=== PATIENT | female | born 1945 | race Caucasian/White ===

== ENCOUNTER 2016-09-05 11:05 | Outpatient (RCR) | payer MEDICARE, OTHER ==
[~2016-09-05 11:05] MED LIST: AMT10T; ASP325T; ASP325TEC PO; ASP81TEC PO; ATOR80TA PO; BREX0.5T PO; CHOL100011 PO; CHOL10003 PO; CHOL200035 PO; CLPD75T PO; COLE1TAB PO; CRV6.25T PO; CYAN25003 SL; D50KC; DICY20TA10 PO; DIGO250T PO; DULO60CA6 PO; EST05TD; FERR325C PO; FRS325T PO; FRSM20T; FURO20TA4 PO; GBPN300C PO; HYZAAR 100/25MG; KCL8CCR PO; LORA10TA7 PO; LOSA50TA6 PO; LOVAZA 1GM; LSRT50T PO; LVT.088T PO; LVT.1T PO; MAGN400C PO; MAGN400T6 PO; METO25TA2 PO; MRTZ15T; MULT1CAP27 PO; MULT1TAB63 PO; MV,C1TAB34 PO; NF-AMPE5T; NF-CYM60C; NF-DICLTB; NF-LOVAZAC PO; NF-TYLARTH PO; NIA500ERT PO; NIAC1000 PO; NIAC1TBM5; NYST1000 PO; OMEG1CAP PO; PNT40TEC PO; POTA8TAB PO; SMV20T; TR025C15 TP; TRAM50TA2 PO; VIVELLE PATCH; VNL37.5T PO; VNL75CCR; VNL75CCR PO; [UNRECOGNIZED DRUG - OTHER]; [UNRECOGNIZED DRUG - OTHER]; lovaza PO
== END 2016-12-02 | disposition home or self-care (01) ==
LOC: LAB 11:05
PROVIDERS: ATTEND Internal Medicine
DX: N18.3 Chronic kidney disease, stage 3 (moderate) (principal)
CPT/HCPCS: 82570; 84156

== ENCOUNTER → 2017-01-17 | Outpatient (CLI) | payer MEDICARE, OTHER | LOC: CARD 12:51 | PROVIDERS: ATTEND Internal Medicine Cardiovascular Disease | DX: I25.10 Atherosclerotic heart disease of native coronary artery without angina pectoris (principal); I65.23 Occlusion and stenosis of bilateral carotid arteries; I10 Essential (primary) hypertension; E78.2 Mixed hyperlipidemia; M79.7 Fibromyalgia | CPT/HCPCS: 93306 ==

== ENCOUNTER 2018-05-13 11:24 | Inpatient (IN) | payer MEDICARE, OTHER ==
[~2018-05-13] VITALS: Ht 160 cm; Wt 76.2 kg
--- OUTSIDE RECORDS SUMMARY | 2018-05-13 11:30 | XMS REPORT ---
Author Author TATI MILLARD Organization [facility] Address [address] [place] [address] Care Team Providers Care Tree Deadener Name Role Phone TATI MILLARD Unavailable PROBLEMS Type Condition ICD9-CM Code WMY53-II Code Onset Dates Condition Status SNOMED Code Problem Major depressive disorder, recurrent episode, in partial or unspecified remission 296.35 Active 16213766 Problem Panic disorder without agoraphobia 300.01 Active 56339076 ALLERGIES Substance Reaction Event Type Date Status Codeine Sulfate hives Drug Allergy Jan, Active Cefadroxil Fainting Drug Allergy Jan, Active ENCOUNTERS Encounter Location Date Diagnosis [place] [id number] [place] [address] 24774- 9581 Apr, [place] [address] [place] [id number] [place] [address] 40175- 6818 Feb, Major depressive disorder, recurrent episode, in partial remission F33.41 [place] [address] [place] [address] 60559- 0256 Jan, Major depressive disorder, recurrent episode, in partial remission F33.41 [place] [address] [address] Jan, Major depressive disorder, recurrent episode, in partial remission F33.41 and 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.1 [place] [address] [place] [address] 08515- 5194 Jan, [place] [address] [place] [id number] [place] [address] 25051- 6264 Dec, Major depressive disorder, recurrent episode, in partial remission F33.41 [place] [address] [place] [id number] [place] [address] 00413- 4075 Dec, Major depressive disorder, recurrent episode, in partial remission F33.41 [facility] [address] [place] [address] 02845- 6966 Oct, Major depressive disorder, recurrent episode, in partial remission F33.41 and 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.1 [facility] [address] [address]6 Jun, Major depressive disorder, recurrent episode, in partial remission F33.41 and 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.1 [facility] [address] [place] [address] 18291- 6376 Feb, 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.1 [facility] [address] [place] [id number] [place] [address] 97943- 2247 Jan, 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.1 [facility] [address] [place] [id number] [place] [address] 92782- 3508 Jan, Major depressive disorder, recurrent episode, in partial remission F33.41 ; 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.1 and Other prison ( current) drug therapy Z79.899 [facility] [address] [place] [id number] [place] [address] 05047- 4474 Dec, [facility] [address] [place] [address] 24252- 6440 Dec, [facility] [address] [place] [address] 33675- 6400 Dec, Major depressive disorder, recurrent episode, in partial remission F33.41 [facility] [address] [address]- 7186 November, [facility] [address] [place] [id number] [place] [address] 06941- 2941 November, Major depressive disorder, recurrent episode, in partial remission F33.41 and 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.1 [facility] [address] [place] [address] 48501- 0487 Oct, Major depressive disorder, recurrent episode, in partial remission F33.41 and 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.1 [facility] [address] [place] [id number] [place] [address] 3676 Jul, [facility] [address] [place] [id number] [address]- 1626 Jul, [facility] [address] [place] [id number] [place] [address] 20888- 0308 Jul, Major depressive disorder, recurrent episode, in partial remission F33.41 ; 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.1 and 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 [facility] [address] [place] [id number] [address] 6506 Jun, [facility] [address] [place] [id number] [address]- 2153 Apr, Major depression, recurrent 296.30 and Anxiety disorder, unspecified F41.9 [facility] [address] [place] [id number] [address]- 0467 Feb, [facility] [address] [place] [id number] [place] [address]- 4815 Jan, [facility] [address] [place] [id number] [address]- 4252 Dec, Major depressive disorder, recurrent, in partial remission F33.41 and Anxiety disorder, unspecified F41.9 [facility] [address] [place] [id number] [address]- 6592 Dec, [facility] [address] [place] [id number] [place] [address]- 2036 November, [facility] [address] [place] [id number] [address]- 9498 November, [facility] [address] [place] [id number] [address]- 6756 Oct, [facility] [address] [place] [id number] [address]- 2520 Aug, [facility] [address] [address]- 0938 Jul, [facility] [address] [address] 1670 Jul, 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.1 ; Major depressive disorder, recurrent, moderate F33.1 and Anxiety disorder, unspecified F41.9 [facility] [address] [address]- 2379 Jun, [facility] [address] [place] [address] 47819- 8825 May, [facility] [address] [address]- 7841 May, [facility] [address] [address]- 3227 Mar, [facility] [address] [address]- 6511 Feb, Major depression, recurrent 296.30 ; Chronic post-traumatic stress disorder (PTSD) 309.81 ; Anxiety 300.00 ; No condition on Bowlus II V71.09 and No condition on axis III V71.09 [facility] [address] [address]- 6115 Jan, Major depression 296.20 ; 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 300.02 ; 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 ; No condition on Bowlus II V71.09 and No condition on axis III V71.09 [facility] [address] [place] [id number] [address]- 4792 15 Dec, 2014 Depression, major, recurrent, moderate 296.32 ; 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 300.02 and Bowlus II diagnosis deferred 799.9 [facility] [address] [place] [id number] [address]- 9030 Dec, Major depressive disorder, recurrent episode, in partial or unspecified remission 296.35 and Panic disorder without agoraphobia 300.01 [facility] [place] [facility] [address] [id number] [place] [address]- 3317 Oct, [facility] [address] [facility] [id number] [place] [address]- 9809 Oct, [facility] [place] [facility] [address] [facility] [id number] [place] [address]- 8304 Mar, [facility] [place] [facility] [address] [id number] [place] [address]- 5262 Feb, [facility] [place] [facility] [address] [id number] [place] [address]- 5306 Feb, [facility] [place] [facility] [address] [facility] [id number] [place] [address]- 5881 Feb, [facility] [place] [facility] [address] [facility] [id number] [place] [address]- 1372 Feb, [facility] [place] [facility] [address] [facility] [id number] [place] [address]- 9236 Feb, [facility] [place] [facility] [address] [facility] [id number] [place] [address]- 0893 Feb, [facility] [place] [facility] [address] [facility] [id number] [place] [address]- 7352 November, [facility] [place] [facility] [address] [facility] [id number], [place] [address]- 1870 November, [facility] [place] [facility] [address] [facility] [id number] [address]- 8824 November, [facility] [place] [facility] [address] [facility] [id number] [place] [address]- 7462 November, [facility] [place] [facility] [address] [facility] [id number] [address]- 5705 November, [facility] [place] [facility] [address] [facility] [id number] [place] [address]- 8163 November, [facility] [place] [facility] [address] [facility] [id number] [place] [address]- 0071 Oct, [facility] [address] [id number] [place] [address]- 2220 Oct, [facility] [place] [facility] [address] [id number] [place] 8961 Sep, [facility] [place] [facility] [address] [id number] [place] [address]- 6673 Sep, [facility] [place] [facility] [address] [id number] [place] [address]- 8136 Sep, [facility] [place] [facility] [address] [id number] [place] [address]- 2990 Sep, [facility] [place] [facility] [address] [id number] [place] [address]- 6295 Sep, [facility] [place] [facility] [address] [id number] [place] [address]- 0890 Sep, [facility] [place] [facility] [address] [id number] [place] [address]- 7603 Aug, [facility] [place] [facility] [address] [id number] [place] [address]- 2055 Aug, [facility] [place] [facility] [address] [id number] [place] [address]- 7645 Aug, [facility] [place] [facility] [address] [id number] [place] [address]- 3959 Aug, [facility] [place] [facility] [address] [id number] [place] [address]- 3579 Jul, [facility] [place] [facility] [address] [id number] [place] [address]- 4873 Jul, [facility] [place] [facility] [address] [id number] [place] [address]- 9926 Jul, [facility] [place] [facility] [address] [id number] [place] [address]- 4709 Jul, [facility] [address] [id number] [place] [address]- 8744 Jul, [facility] [place] [facility] [address] [id number] [place] [address]- 8214 Jul, [facility] [place] [facility] [address] [id number] [place] 9165 Jun, [facility] [place] [facility] [address] [id number] [place] [address]- 6391 Jun, [facility] [place] [facility] [address] [id number] [place] [address]- 5212 Jun, [facility] [place] [facility] [address] [id number] [place] [address]- 3439 Jun, [facility] [place] [facility] [address] [id number] [place] [address]- 0619 May, [facility] [place] [facility] [address] [id number] [place] [address]- 1945 May, [facility] [place] [facility] [address] [id number] [place] [address]- 6603 May, [facility] [place] [facility] [address] [id number] [place] [address]- 7003 May, [facility] [place] [facility] [address] [id number] [place] [address]- 5305 Apr, [facility] [place] [facility] [address] [id number], [place] [address]- 8579 Mar, [facility] [place] [facility] [address] [id number] [place] [address]- 0209 Mar, [facility] [place] [facility] [address] [id number] [place] [address]- 8030 Feb, [facility] [place] [facility] [address] [id number] [place] [address]- 4636 Feb, [facility] [place] [facility] [address] [id number] [place] [address]- 9558 Feb, [facility] [address] [id number] [place] [address]- 5881 Jan, [facility] [place] [facility] [address] [id number] [place] [address]- 8092 Dec, [facility] [place] [facility] [address] [id number] [place] [address]- 7166 Dec, [facility] [place] [facility] [address] [id number] [place] [address]- 9922 Dec, [facility] [place] [facility] [address] [id number] [place] [address]- 8167 Dec, [facility] [place] [facility] [address] [id number] [place] [address]- 8096 November, [facility] [place] [facility] [address] [id number] [place] [address]- 9964 Sep, [facility] [place] [facility] [address] [id number] [place] [address]- 6208 Aug, [facility] [place] [facility] [address] [id number] [place] [address]- 4795 Jul, [facility] [place] [facility] [address] [id number] [place] [address]- 7079 Jul, [facility] [place] [facility] [address] [id number] [place] [address]- 7202 Jun, [facility] [place] [facility] [address] [id number] [place] [address]- 0348 Jun, [facility] [place] [facility] [address] [id number] [place] [address]- 0597 May, [facility] [place] [facility] [address] [id number] [place] [address]- 4296 May, [facility] [place] [facility] [address] [id number] [place] [address]- 5716 Aug, [facility] [address] [facility] [id number], [place] [address]- 9418 Jun, [facility] [address] [address]- 8141 May, [facility] [address] [address]- 3879 May, [facility] [address] [address]- 5431 May, [facility] [address] [address]- 7670 May, [place] [address], [place] [address]- 3986 Apr, IMMUNIZATIONS No Known Immunizations SOCIAL HISTORY Never Assessed REASON FOR VISIT f/u-Naty GOLDSTEIN, Needs to Sign SHIRA for records from PCP PLAN OF CARE Activity Details Follow Up 3 Months Reason: f/u VITAL SIGNS Height 63.75 in 2018-02-14 Weight 131.2 lbs 2018-02-14 Heart Rate 74 bpm 2018-02-14 Respiratory Rate 18 2018-02-14 BMI 22.69 kg/m2 2018-02-14 Blood pressure systolic 112 mmHg 2018-02-14 Blood pressure diastolic 60 mmHg 2018-02-14 MEDICATIONS Medication Instructions Dosage Frequency Start Date End Date Duration Status Colestid 1 gram 1 Tablet by Oral route 2 times per day As needed Sep Active Paonia 3 1000 MG Orally Once a day 1 capsule 24h Active Niacin ER 1000 MG Orally Once a day 1 tablet 24h Active Metoprolol Tartrate 25 MG Orally Twice a day 1 tablet 12h Active Vitamin D3 2000 UNIT Active Lisinopril 5 mg Orally Once a day .5 tablet 24h Not-Taking Aspirin 81 mg 1 Capsule by Oral route 1 time per day Feb, Not-Taking Omeprazole 20 MG Orally Once a day 1 capsule 24h Active Levothyroxine Sodium 88 MCG Orally Once a day 1 tablet 24h Active Lipitor 80 MG Orally Once a day 1 tablet 24h Active Duloxetine HCl 60MG TAKE 1 CAPSULE TWICE A DAY Active Niaspan 500 MG Orally Once a day 1 tablet at bedtime 24h Not- Taking Centrum Cardio Orally Once a day 1 tablet 24h Active Rexulti 1 MG Orally Once a day 1 tablet 24h 05 Jul, 2015 Active Lovaza 1 GM Orally Twice a day 2 capsules 12h Active Gabapentin 600 MG Orally twice a day 1 tablet 12h 13 Oct, 2016 Active Iron Complex Not-Taking RESULTS No Results PROCEDURES Procedure Date Ordered Result Body Site [facility] VISIT ESTABLISHED PATIENT February 14, 2018 INSTRUCTIONS MEDICATIONS ADMINISTERED No Known Medications MEDICAL (GENERAL) HISTORY Type Description Date Medical History HTN Medical History stage 3 kidney disease Medical History hypothyroidism Medical History high cholesterol Medical History coranary artery disease Medical History "enlarged heart" Medical History GERD Medical History IBS Medical History sleep apnea (CPAP noncompliant) Surgical History S/P EKATERINA 1972 Surgical History S/P quadruple cardiac bypass 2008 Hospitalization History Denies any past psychiatric hospitalization
--- OUTSIDE RECORDS SUMMARY | 2018-05-13 11:30 | XMS REPORT ---
Author Author TATI MILLARD 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 Operator Name Role Phone TATI MILLARD Unavailable PROBLEMS Type Condition ICD9-CM Code [id number] Code Onset Dates Condition Status SNOMED Code Problem Major depressive disorder, recurrent episode, in partial or unspecified remission 296.35 Active 51775760 Problem Panic disorder without agoraphobia 300.01 Active 20612630 ALLERGIES No Information ENCOUNTERS Encounter Location Date Diagnosis [place] [id number] [place] [address]14- 0820 Apr, [facility] [id number] [place] [address] 38943- 9940 Feb, Major depressive disorder, recurrent episode, in partial remission F33.41 [facility] [id number] [place] [address] 67762- 3702 Jan, Major depressive disorder, recurrent episode, in partial remission F33.41 [place] [id number] [place] [address] 38627- 6563 Jan, Major depressive disorder, recurrent episode, in partial remission F33.41 and 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.1 [facility] [id number] [place] [address] 33256- 4105 Jan, [facility] [id number] [place] [address] 39209- 3359 Dec, Major depressive disorder, recurrent episode, in partial remission F33.41 [facility] [id number] [place] [address] 74658- 9038 Dec, Major depressive disorder, recurrent episode, in partial remission F33.41 [place] [address] [facility] [id number] [place] [address] 2546 Oct, Major depressive disorder, recurrent episode, in partial remission F33.41 and 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.1 [facility] [address] [facility] [id number] [place] [address] 2546 Jun, Major depressive disorder, recurrent episode, in partial remission F33.41 and 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.1 [facility] [address] [place] [address] 6036 Feb, 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.1 [facility] [id number] [place] [address] 7896 Jan, 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.1 [facility] [address] [id number] [place] [address] 2806 Jan, Major depressive disorder, recurrent episode, in partial remission F33.41 ; 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.1 and Other soda tester ( 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 [id number] [place] [address] 2546 November, Major depressive disorder, recurrent episode, in partial remission F33.41 and 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.1 [facility] [address] [facility] [id number] [place] [address]- 5036 Oct, Major depressive disorder, recurrent episode, in partial remission F33.41 and 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.1 [facility] [address] [place] [address] 2972 Jul, [facility] [address] [place] [address]- 9726 Jul, [facility] [address] [place] [address]- 8306 Jul, Major depressive disorder, recurrent episode, in partial remission F33.41 ; 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.1 and Other custodial ( current) drug therapy Z79.899 [facility] [address] [place] [address] 2546 Jun, [facility] [id number] [place] [address] 41536- 8236 Apr, Major depression, recurrent 296.30 and Anxiety disorder, unspecified F41.9 [facility] [address] [place] [address] 7192 Feb, [facility] [address] [place] [address] 8318 Jan, [facility] [address] [place] [address]- 7444 Dec, Major depressive disorder, recurrent, in partial remission F33.41 and Anxiety disorder, unspecified F41.9 [facility] [address] [address]- 5300 Dec, [facility] [address] [place] [address] 5756 November, [facility] [address] [place] [address]- 4666 November, [facility] [address] [place] [address] 2546 Oct, [facility] [address] [place] [address]- 2516 Aug, [facility] [id number] [place] [address] 39236- 0940 Jul, [facility] [id number] [place] [address] 90325- 1621 Jul, 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.1 ; Major depressive disorder, recurrent, moderate F33.1 and Anxiety disorder, unspecified F41.9 [place] [id number] [place] [address] 81814- 0743 Jun, [facility] [id number] [place] [address] 35603- 6914 May, [place] [id number] [place] [address] 23219- 8642 May, [facility] [id number] [place] [address] 80561- 2457 Mar, [place] [id number] [place] [address] 30265- 9633 Feb, Major depression, recurrent 296.30 ; Chronic post-traumatic stress disorder (PTSD) 309.81 ; Anxiety 300.00 ; No condition on Echo II V71.09 and No condition on axis III V71.09 [place] [id number] [place] [address] 40271- 6157 Jan, Major depression 296.20 ; 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 300.02 ; 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 ; No condition on Echo II V71.09 and No condition on axis III V71.09 [facility] [id number] [place] [address] 36867- 5120 Dec, Depression, major, recurrent, moderate 296.32 ; 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 300.02 and Echo II diagnosis deferred 799.9 [place] [id number] [place] [address] 76738- 3812 Dec, Major depressive disorder, recurrent episode, in partial or unspecified remission 296.35 and Panic disorder without agoraphobia 300.01 [place] [id number] [place] [address] 40593- 5253 Oct, [facility] [place] [facility] [address] [id number] [place] [address]- 0977 Oct, [facility] [place] [facility] [address] [id number] [place] [address]- 7288 Mar, [facility] [place] [facility] [address] [id number] [place] [address]- 7807 Feb, [facility] [place] [facility] [address] [id number] [place] [address]- 2969 Feb, [facility] [place] [facility] [address] [id number] [place] [address]- 4205 Feb, [facility] [place] [facility] [address] [id number] [place] [address]- 5434 Feb, [facility] [place] [facility] [address] [id number] [place] [address]- 0594 Feb, [facility] [place] [facility] [address] [id number] [place] [address]- 2793 Feb, [facility] [place] [facility] [address] [id number] [place] [address]- 4117 November, [facility] [place] [facility] [address] [id number] [place] [address]- 3434 November, [facility] [place] [facility] [address] [id number] [place] [address]- 8560 November, [facility] [place] [facility] [address] [id number] [place] [address]- 8999 November, [facility] [place] [facility] [address] [id number] [place] [address]- 3122 November, [facility] [place] [facility] [address] [id number] [place] [address]- 5290 November, [facility] [place] [facility] [address] [id number] [place] [address]- 7255 Oct, [facility] [place] [facility] [address] [id number] [place] [address]- 4876 Oct, [facility] [place] [facility] [address] [id number] [place] [address]- 8205 Sep, [facility] [place] [facility] [address] [id number] [place] [address]- 6886 Sep, [facility] [place] [facility] [address] [id number] [place] [address]- 2857 Sep, [facility] [place] [facility] [address] [id number] [place] [address]- 2078 Sep, [facility] [place] [facility] [address] [id number] [place] [address]- 1612 Sep, [facility] [place] [facility] [address] [id number] [place] [address]- 6935 Sep, [facility] [place] [facility] [address] [id number] [place] [address]- 3519 Aug, [facility] [place] [facility] [address] [id number] [place] [address]- 5396 Aug, [facility] [place] [facility] [address] [id number] [place] [address]- 7615 Aug, [facility] [place] [facility] [address] [id number] [place] [address]- 4614 Aug, [facility] [place] [facility] [address] [id number] [place] [address]- 4822 Jul, [facility] [place] [facility] [address] [id number] [place] [address]- 9694 Jul, [facility] [place] [facility] [address] [id number] [place] [address]- 2561 Jul, [facility] [place] [facility] [address] [id number] [place] [address]- 4490 Jul, [facility] [place] [facility] [address] [id number] [place] [address]- 2313 Jul, [facility] [place] [facility] [address] [id number] [place] [address]- 7596 Jul, [facility] [place] [facility] [address] [id number] [place] [address]- 2826 Jun, [facility] [place] [facility] [address] [id number] [place] [address]- 5784 Jun, [facility] [place] [facility] [address] [id number] [place] [address]- 2546 Jun, [facility] [place] [facility] [address] [id number] [place] [address] 2548 Jun, [facility] [place] [facility] [address] [id number] [place] [address]- 2333 May, [facility] [place] [facility] [address] [id number] [place] [address]- 8132 May, [facility] [place] [facility] [address] [id number] [place] [address]- 7989 May, [facility] [place] [facility] [address] [id number] [place] [address]- 5366 May, [facility] [place] [facility] [address] [id number] [place] [address]- 9456 Apr, [facility] [place] [facility] [address] [id number] [place] [address]- 0254 Mar, [facility] [place] [facility] [address] [id number] [place] [address]- 4019 Mar, [facility] [place] [facility] [address] [id number] [place] [address] 2547 Feb, [facility] [place] [facility] [address] [id number] [place] [address]- 1726 Feb, [facility] [place] [facility] [address] [id number] [place] [address]- 2056 Feb, [facility] [place] [facility] [address] [id number] [place] [address]- 5529 Jan, [facility] [address] [id number] [place] [address]- 9062 Dec, [facility] [place] [facility] [address] [id number] [place] [address]- 7850 Dec, [facility] [address] [id number] [place] [address]- 1221 Dec, [facility] [place] [facility] [address] [id number] [place] [address]- 0654 Dec, [facility] [address] [id number] [place] [address]- 5549 November, [facility] [address] [id number] [place] [address]- 6626 Sep, [facility] [address] [id number] [place] [address]- 8133 Aug, [facility] [address] [id number] [place] [address]- 4773 Jul, [facility] [address] [id number] [place] [address]- 7620 Jul, [facility] [address] [id number] [place] [address]- 2483 Jun, [facility] [address] [id number] [place] [address]- 9911 Jun, [facility] [place] [facility] [address] [id number] [place] [address]- 7829 May, [facility] [place] [facility] [address] [id number] [place] [address]- 2768 May, [facility] [place] [facility] [address] [id number] [place] [address]- 4222 10 Aug, 2011 [facility] [address] [id number] [place] [address]- 2511 Jun, [facility] [address] [facility] [id number] [place] [address]- 5016 May, [facility] [id number] [place] [address]- 7516 May, [facility] [address] [facility] [id number] [place] [address]- 2706 May, [facility] [id number] [place] [address]- 8976 May, [facility] [address] [facility] [id number] [place] [address]75 Apr, IMMUNIZATIONS No Known Immunizations SOCIAL HISTORY Never Assessed REASON FOR VISIT Requests return call PLAN OF CARE VITAL SIGNS MEDICATIONS Medication Instructions Dosage Frequency Start Date End Date Duration Status Gabapentin 600 MG Orally twice a day 1 tablet 12h 13 Oct, 2016 30 days Active RESULTS No Results PROCEDURES No Known procedures INSTRUCTIONS MEDICATIONS ADMINISTERED No Known Medications MEDICAL [...]
--- OUTSIDE RECORDS SUMMARY | 2018-05-13 11:30 | XMS REPORT ---
Author Author TATI MILLARD [facility] Address [address] [place] [address] Care Team Providers Care Deicer Repairer Pneumatic Name Role Phone TATI MILLARD Unavailable PROBLEMS Type Condition ICD9-CM Code [id number] Code Onset Dates Condition Status SNOMED Code Problem Major depressive disorder, recurrent episode, in partial or unspecified remission 296.35 Active 35604287 Problem Panic disorder without agoraphobia 300.01 Active [id number] ALLERGIES No Information ENCOUNTERS Encounter Location Date Diagnosis [place] [id number] [place] [address] 80978- 0964 Apr, [facility] [id number] [place] [address] 28798- 4728 Feb, Major depressive disorder, recurrent episode, in partial remission F33.41 [facility] [id number] [place] [address] 73842- 8011 Jan, Major depressive disorder, recurrent episode, in partial remission F33.41 [place] [id number] [place] [address] 65453- 2935 Jan, Major depressive disorder, recurrent episode, in partial remission F33.41 and 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.1 [facility] [id number] [place] [address] 32446- 2020 Jan, [facility] [id number] [place] [address] 13606- 6816 Dec, Major depressive disorder, recurrent episode, in partial remission F33.41 [facility] [id number] [place] [address] 17581- 5565 Dec, Major depressive disorder, recurrent episode, in partial remission F33.41 [place] [address] [facility] [id number] [address] 2546 Oct, Major depressive disorder, recurrent episode, in partial remission F33.41 and 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.1 [facility] [address] [facility] [id number] [place] [address] 2546 Jun, Major depressive disorder, recurrent episode, in partial remission F33.41 and 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.1 [facility] [id number] [address] 7[address] Feb, 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.1 [facility] [id number] [place] [address] 5456 Jan, 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.1 [facility] [id number] 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 [address]- 0026 Dec, [facility] [id number] [address] 2546 Dec, [facility] [id number] [address] 0426 Dec, Major depressive disorder, recurrent episode, in partial remission F33.41 [facility] [id number] [place] [address] 2036 November, [facility] [address] [facility] [id number] [place] [address] 2546 November, Major depressive disorder, recurrent episode, in partial remission F33.41 and 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.1 [facility] [address] [facility] [id number] [place] [address]- 0446 Oct, Major depressive disorder, recurrent episode, in partial remission F33.41 and 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.1 [facility] [address] [place] [address]- 4756 Jul, [facility] [id number] [place] [address]- 7846 Jul, [facility] [id number] [place] [address]- 7936 Jul, Major depressive disorder, recurrent episode, in partial remission F33.41 ; 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.1 and Other mcc ( current) drug therapy Z79.899 [facility] [address] [place] [address] 2546 Jun, [facility] [id number] [place] [address] 06145- 2806 Apr, Major depression, recurrent 296.30 and Anxiety disorder, unspecified F41.9 [facility] [id number] [address]- 0342 Feb, [facility] [id number] [address]- 0272 Jan, [facility] [address] [place] [address]- 2421 Dec, Major depressive disorder, recurrent, in partial remission F33.41 and Anxiety disorder, unspecified F41.9 [facility] [address] [address]- 7629 Dec, [facility] [id number] [address]- 4516 November, [facility] [id number] [place] [address]- 2116 November, [facility] [id number] [place] [address] 2546 Oct, [facility] [address] [place] [address]- 6286 Aug, [facility] [id number] [place] [address] 03386- 2453 Jul, [facility] [id number] [place] [address] 28313- 6261 Jul, 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.1 ; Major depressive disorder, recurrent, moderate F33.1 and Anxiety disorder, unspecified F41.9 [place] [id number] [place] [address] 28429- 4551 Jun, [facility] [id number] [place] [address] 54070- 0170 May, [place] [id number] [place] [address] 63764- 5948 May, [facility] [id number] [place] [address] 91171- 4860 Mar, [place] [id number] [place] [address] 43890- 0898 Feb, Major depression, recurrent 296.30 ; Chronic post-traumatic stress disorder (PTSD) 309.81 ; Anxiety 300.00 ; No condition on Whitethorn II V71.09 and No condition on axis III V71.09 [place] [id number] [place] [address] 49207- 6052 Jan, Major depression 296.20 ; 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 300.02 ; 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 ; No condition on Whitethorn II V71.09 and No condition on axis III V71.09 [facility] [id number] [place] [address] 08633- 6755 Dec, Depression, major, recurrent, moderate 296.32 ; 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 300.02 and Whitethorn II diagnosis deferred 799.9 [place] [id number] [place] [address] 77580- 7369 Dec, Major depressive disorder, recurrent episode, in partial or unspecified remission 296.35 and Panic disorder without agoraphobia 300.01 [place] [id number] [place] [address] 45625- 1012 Oct, [facility] [place] [facility] [address] [id number] [place] [address]- 0604 Oct, [facility] [place] [facility] [address] [id number] [place] [address]- 2175 Mar, [facility] [place] [facility] [address] [id number] [place] [address]- 7518 Feb, [facility] [place] [facility] [address] [id number] [place] [address]- 1911 Feb, [facility] [place] [facility] [address] [id number] [place] [address]- 2430 Feb, [facility] [place] [facility] [address] [id number] [place] [address]- 1674 Feb, [facility] [place] [facility] [address] [id number] [place] [address]- 5040 Feb, [facility] [place] [facility] [address] [id number] [place] [address]- 5565 Feb, [facility] [place] [facility] [address] [id number] [place] [address]- 8772 November, [facility] [place] [facility] [address] [id number] [place] [address]- 5882 November, [facility] [place] [facility] [address] [id number] [place] [address]- 2400 November, [facility] [place] [facility] [address] [id number] [place] [address]- 5637 November, [facility] [place] [facility] [address] [id number] [place] [address]- 7588 November, [facility] [place] [facility] [address] [id number] [place] [address]- 2232 November, [facility] [place] [facility] [address] [id number] [place] [address]- 2556 Oct, [facility] [place] [facility] [address] [id number] [place] [address]- 1850 Oct, [facility] [place] [facility] [address] [id number] [place] [address]- 8115 Sep, [facility] [place] [facility] [address] [id number] [place] [address]- 2696 Sep, [facility] [place] [facility] [address] [id number] [place] [address]- 7905 Sep, [facility] [place] [facility] [address] [id number] [place] [address]- 3068 Sep, [facility] [place] [facility] [address] [id number] [place] [address]- 4869 Sep, [facility] [place] [facility] [address] [id number] [place] [address]- 6342 Sep, [facility] [place] [facility] [address] [id number] [place] [address]- 8688 Aug, [facility] [place] [facility] [address] [id number] [place] [address]- 7276 Aug, [facility] [place] [facility] [address] [id number] [place] [address]- 8754 Aug, [facility] [place] [facility] [address] [id number] [place] [address]- 2917 Aug, [facility] [place] [facility] [address] [id number] [place] [address]- 9676 Jul, [facility] [place] [facility] [address] [id number] [place] [address]- 8761 Jul, [facility] [place] [facility] [address] [id number] [place] [address]- 0065 Jul, [facility] [place] [facility] [address] [id number] [place] [address]- 5770 Jul, [facility] [place] [facility] [address] [id number] [place] [address]- 0145 Jul, [facility] [place] [facility] [address] [id number] [place] [address]- 5959 Jul, [facility] [place] [facility] [address] [id number] [place] [address]- 2586 Jun, [facility] [place] [facility] [address] [id number] [place] [address]- 8628 Jun, [facility] [place] [facility] [address] [id number] [place] [address]- 2546 Jun, [facility] [place] [facility] [address] [id number] [place] [address] 254 Jun, [facility] [place] [facility] [address] [id number] [place] [address]- 0208 May, [facility] [place] [facility] [address] [id number] [place] [address]- 3169 May, [facility] [place] [facility] [address] [id number] [address]- 7731 May, [facility] [place] [facility] [address] [id number] [place] [address]- 3932 May, [facility] [place] [facility] [address] [id number] [place] [address]- 2486 Apr, [facility] [place] [facility] [address] [id number], [place] [address]- 9279 Mar, [facility] [place] [facility] [address] [id number][place] [address]- 5843 Mar, [facility] [place] [facility] [address] [id number] [place] [address] 2545 Feb, [facility] [place] [facility] [address] [id number], [place] [address]- 7226 Feb, [facility] [place] [facility] [address] [id number] [place] [address]- 0276 Feb, [facility] [place] [facility] [address] [id number] [place] [address]- 8399 Jan, [facility] [address] [id number] [place] [address]- 9580 Dec, [facility] [place] [facility] [address] [id number] [place] [address]- 1670 Dec, [facility] [address] [id number] [place] [address]- 4660 Dec, [facility] [place] [facility] [address] [id number] [place] [address]- 0668 Dec, [facility] [address] [id number] [place] [address]- 8832 November, [facility] [address] [id number] [place] [address]- 8766 Sep, [facility] [address] [id number] [place] [address]- 8045 Aug, [facility] [address] [id number] [place] [address]- 1904 Jul, [facility] [address] [id number] [place] [address]- 3838 Jul, [facility] [address] [id number] [place] [address]- 7497 Jun, [facility] [address] [id number] [place] [address]- 0653 Jun, [facility] [place] [facility] [address] [id number] [place] [address]- 5183 May, [facility] [place] [facility] [address] [id number] [place] [address]- 6244 May, [facility] [place] [facility] [address] [id number] [place] [address]- 7771 10 Aug, 2011 [facility] [address] [id number] [place] [address]- 6390 Jun, [facility] [address] [facility] [id number] [address]- 5426 May, [facility] [id number] [address]- 5826 May, [facility] [address] [facility] [id number], [place] [address]- 2546 May, [facility] [id number] [address]- 2546 May, [facility] [address] [facility] [id number], [place] [address]- 7576 Apr, IMMUNIZATIONS No Known Immunizations SOCIAL HISTORY Never Assessed REASON FOR VISIT Medication question PLAN OF CARE VITAL SIGNS MEDICATIONS Medication Instructions Dosage Frequency Start Date End Date Duration Status Rexulti 1 MG Orally Once a day 1 tablet 24h Jul, 90 days Active RESULTS No Results PROCEDURES No [...]
--- OUTSIDE RECORDS SUMMARY | 2018-05-13 11:31 | XMS REPORT ---
Author Author TATI MILLARD [facility] Address [address] [place] [address] Care Team Providers Care Career Technical Counselor Name Role Phone TATI MILLARD Unavailable PROBLEMS Type Condition ICD9-CM Code CMM60-BM Code Onset Dates Condition Status SNOMED Code Problem Major depressive disorder, recurrent episode, in partial or unspecified remission 296.35 Active 68258416 Problem Panic disorder without agoraphobia 300.01 Active [id number] ALLERGIES No Information ENCOUNTERS Encounter Location Date Diagnosis [place] [id number] [place] [address] 40238- 5281 Apr, [facility] [id number] [place] [address] 77487- 9252 Jan, Major depressive disorder, recurrent episode, in partial remission F33.41 [facility] [id number] [place] [address] 01912- 1650 Jan, Major depressive disorder, recurrent episode, in partial remission F33.41 and 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.1 [place] [id number] [place] [address] 49257- 0950 Jan, [facility] [id number] [place] [address] 60646- 7387 Dec, Major depressive disorder, recurrent episode, in partial remission F33.41 [facility] [id number] [place] [address] 61478- 7519 Dec, Major depressive disorder, recurrent episode, in partial remission F33.41 [place] [id number] [place] [address] 02877- 5866 Oct, Major depressive disorder, recurrent episode, in partial remission F33.41 and 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.1 [facility] [id number] [address] Jun, Major depressive disorder, recurrent episode, in partial remission F33.41 and 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.1 [facility] [id number] [place] [address] 8486 Feb, 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.1 [facility] [address] [address] 8776 Jan, 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.1 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 [address] [address] 93[address] Dec, [facility] [id number] [address] 2409 Dec, [facility] [id number] [address] 3053 Dec, Major depressive disorder, recurrent episode, in partial remission F33.41 [facility] [address] [address] 1100 November, [facility] [id number] [address] 5681 November, Major depressive disorder, recurrent episode, in partial remission F33.41 and 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.1 [facility] [id number] [address] 4000 Oct, Major depressive disorder, recurrent episode, in partial remission F33.41 and 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.1 [facility] [id number] [address] 8336 Jul, [facility] [id number] [address] 00[address] Jul, 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 [id number] [place] [address] 81025- 1666 Jun, [facility] [id number] [place] [address] 67450- 4551 Apr, Major depression, recurrent 296.30 and Anxiety disorder, unspecified F41.9 [facility] [id number] [place] [address] 03857- 9388 Feb, [facility] [id number] [place] [address] 20226- 5991 Jan, [facility] [id number] [place] [address] 34888- 5347 Dec, Major depressive disorder, recurrent, in partial remission F33.41 and Anxiety disorder, unspecified F41.9 [facility] [id number] [place] [address] 27213- 2821 Dec, [facility] [id number] [address]- 9105 November, [facility] [id number] [place] [address] 70414- 4386 November, [facility] [address], [place] [address]- 8146 Oct, [facility] [id number] [place] [address] 07641- 2436 Aug, [facility] [address] [address]- 3268 Jul, [facility] [id number] [place] [address] 32734- 0119 Jul, 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.1 ; Major depressive disorder, recurrent, moderate F33.1 and Anxiety disorder, unspecified F41.9 [facility] [address], [place] [address]- 6349 Jun, [facility] [id number] [place] [address] 06293- 2512 May, [facility] [id number] [place] [address] 89918- 7481 May, [facility] [id number] [place] [address] 97965- 0489 Mar, [facility] [address] [place] [id number] [place] [address] 78498- 4687 Feb, Major depression, recurrent 296.30 ; Chronic post-traumatic stress disorder (PTSD) 309.81 ; Anxiety 300.00 ; No condition on [place] II V71.09 and No condition on axis III V71.09 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 [id number] [place] [address] 33095- 8867 15 Dec, 2014 Depression, major, recurrent, moderate 296.32 ; 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 300.02 and [place] II diagnosis deferred 799.9 [facility] [id number] [place] [address] 57321- 0364 Dec, Major depressive disorder, recurrent episode, in partial or unspecified remission 296.35 and Panic disorder without agoraphobia 300.01 [facility] [address], [place] [address]- 2833 Oct, [facility] [address] [place] [id number] [place] [address] 98027- 7723 Oct, [facility] [place] [facility] [address] [id number] [place] [address]- 9378 Mar, [facility] [place] [facility] [address] [id number] [place] [address]- 7724 Feb, [facility] [place] [facility] [address] [id number] [place] [address]- 8820 Feb, [facility] [place] [facility] [address] [id number] [place] [address]- 2460 Feb, [facility] [place] [facility] [address] [id number] [place] [address]- 3313 Feb, [facility] [place] [facility] [address] [id number] [place] [address]- 2316 Feb, [facility] [place] [facility] [address] [id number] [place] [address]- 7912 Feb, [facility] [place] [facility] [address] [id number] [place] [address]- 2324 November, [facility] [place] [facility] [address] [id number] [place] [address]- 9911 November, [facility] [place] [facility] [address] [id number] [place] [address]- 4936 November, [facility] [place] [facility] [address] [id number] [place] [address]- 8007 November, [facility] [place] [facility] [address] [id number] [place] [address]- 8314 November, [facility] [place] [facility] [address] [id number] [place] [address]- 5739 November, [facility] [place] [facility] [address] [id number] [place] [address]- 0812 Oct, [facility] [place] [facility] [address] [id number] [place] [address]- 5615 Oct, [facility] [place] [facility] [address] [id number] [place] [address]- 1805 Sep, [facility] [place] [facility] [address] [id number] [place] [address]- 7862 Sep, [facility] [place] [facility] [address] [id number] [place] [address]- 0143 Sep, [facility] [place] [facility] [address] [facility] [id number] [place] [address]- 5021 Sep, [facility] [place] [facility] [address] [id number] [place] [address]- 2021 Sep, [facility] [place] [facility] [address] [id number] [place] [address]- 2402 Sep, [facility] [place] [facility] [address] [id number] [place] [address]- 3429 Aug, [facility] [place] [facility] [address] [id number] [place] [address]- 3576 Aug, [facility] [place] [facility] [address] [id number] [place] [address]- 3341 Aug, [facility] [place] [facility] [address] [id number] [place] [address]- 6495 Aug, [facility] [place] [facility] [address] [facility] [id number] [place] [address]- 4426 Jul, [facility] [place] [facility] [address] [id number] [place] [address]- 2565 Jul, [facility] [place] [facility] [address] [id number] [place] [address]- 3040 Jul, [facility] [place] [facility] [address] [id number] [place] [address]- 4324 Jul, [facility] [place] [facility] [address] [id number] [place] [address]- 2940 Jul, [facility] [place] [facility] [address] [facility] [id number] [place] [address]- 0694 Jul, [facility] [place] [facility] [address] [id number] [place] [address]- 5082 Jun, [facility] [place] [facility] [address] [id number] [place] [address]- 0561 Jun, [facility] [place] [facility] [address] [id number] [place] [address]- 2546 Jun, [facility] [place] [facility] [address] [id number] [place] [address] 2546 Jun, [facility] [place] [facility] [address] [id number] [place] [address]- 2807 May, [facility] [place] [facility] [address] [id number] [place] [address]- 3286 May, [facility] [place] [facility] [address] [id number] [place] [address]- 1616 May, [facility] [place] [facility] [address] [id number] [place] [address]- 6060 May, [facility] [place] [facility] [address] [id number] [place] [address]- 1005 Apr, [facility] [place] [facility] [address] [id number] [place] [address]- 4851 Mar, [facility] [place] [facility] [address] [id number] [place] [address]- 5268 Mar, [facility] [place] [facility] [address] [id number] [place] [address]- 2923 Feb, [facility] [place] [facility] [address] [id number] [place] [address]- 8172 Feb, [facility] [place] [facility] [address] [id number] [place] [address]- 7976 Feb, [facility] [place] [facility] [address] [id number] [place] [address]- 2546 Jan, [facility] [place] [facility] [address] [id number] [place] [address]- 0519 Dec, [facility] [place] [facility] [address] [id number] [place] [address]- 7398 Dec, [facility] [place] [facility] [address] [id number] [place] [address]- 0850 Dec, [facility] [place] [facility] [address] [id number] [place] [address]- 2091 Dec, [facility] [place] [facility] [address] [id number] [place] [address]- 9058 November, [facility] [place] [facility] [address] [id number] [place] [address]- 1134 Sep, [facility] [place] [facility] [address] [id number] [place] [address]- 1931 Aug, [facility] [place] [facility] [address] [id number] [place] [address]- 1065 Jul, [facility] [place] [facility] [address] [id number] [place] [address]- 3256 Jul, [facility] [place] [facility] [address] [id number] [place] [address]- 0198 Jun, [facility] [place] [facility] [address] [id number] [place] [address]- 6227 Jun, [facility] [place] [facility] [address] [id number], [place] [address]- 5311 May, [facility] [place] [facility] [address] [id number], [place] [address]- 7037 May, [facility] [place] [facility] [address] [id number] [place] [address]- 7802 Aug, [facility] [place] [facility] [address] [id number] [place] [address]- 8766 Jun, [facility] [place] [facility] [address] [id number] [place] [address]- 2680 May, [facility] [place] [facility] [address] [facility] [id number] [place] [address]- 3446 May, [facility] [address] [facility] [id number], [place] [address]- 8864 May, [facility] [address] [facility] [id number] 0602 May, [facility] [address] [facility] [id number] 7252 Apr, IMMUNIZATIONS No Known Immunizations SOCIAL HISTORY Never Assessed REASON FOR VISIT med refill PLAN OF CARE VITAL SIGNS MEDICATIONS Medication Instructions Dosage Frequency Start Date End Date Duration Status Rexulti 1 MG Orally Once a day 1 tablet 24h Jul, 30 days Active RESULTS No Results PROCEDURES No Known procedures INSTRUCTIONS MEDICATIONS ADMINISTERED No Known Medications MEDICAL (GENERAL) HISTORY Type Description Date Medical History HTN Medical History stage 3 kidney disease Medical History hypothyroidism Medical History high cholesterol Medical History coranary artery disease Medical History "enlarged heart" Medical History GERD Medical History IBS Medical History sleep apnea (CPAP noncompliant) Surgical History S/P EKATERINA 1973 Surgical History S/P quadruple cardiac bypass 2008 Hospitalization History Denies any past psychiatric hospitalization
--- OUTSIDE RECORDS SUMMARY | 2018-05-13 11:31 | XMS REPORT ---
Author Author TATI MILLARD [facility] Address [address] [place] [address] Care Team Providers Care Maintenance Team Member Name Role Phone TATI MILLARD Unavailable PROBLEMS Type Condition ICD9-CM Code [id number] Code Onset Dates Condition Status SNOMED Code Problem Major depressive disorder, recurrent episode, in partial or unspecified remission 296.35 Active 62562323 Problem Panic disorder without agoraphobia 300.01 Active [id number] ALLERGIES No Information ENCOUNTERS Encounter Location Date Diagnosis [place] [id number] [place] [address] 67897- 6513 Apr, [facility] [id number] [place] [address] 76340- 4225 Jan, Major depressive disorder, recurrent episode, in partial remission F33.41 [facility] [id number] [place] [address] 17352- 7226 Jan, Major depressive disorder, recurrent episode, in partial remission F33.41 and 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.1 [place] [id number] [place] [address] 05463- 0478 Jan, [facility] [id number] [place] [address] 65326- 9713 Dec, Major depressive disorder, recurrent episode, in partial remission F33.41 [facility] [id number] [place] [address] 90251- 7607 Dec, Major depressive disorder, recurrent episode, in partial remission F33.41 [place] [id number] [place] [address] 02722- 7164 Oct, Major depressive disorder, recurrent episode, in partial remission F33.41 and 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.1 [facility] [id number] [address] Jun, Major depressive disorder, recurrent episode, in partial remission F33.41 and 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.1 [facility] [id number] [address] 9366 Feb, 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.1 [facility] [address] [address] 2896 Jan, 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.1 [facility] [id number] [address] 4961 Jan, Major depressive disorder, recurrent episode, in partial remission F33.41 ; 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.1 and 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 [facility] [address] [address] 27[address] Dec, [facility] [id number] [address] 8428 Dec, [facility] [id number] [address] 6060 Dec, Major depressive disorder, recurrent episode, in partial remission F33.41 [facility] [address] [address] 5985 November, [facility] [id number] [address] 6091 November, Major depressive disorder, recurrent episode, in partial remission F33.41 and 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.1 [facility] [id number] [address] 8400 Oct, Major depressive disorder, recurrent episode, in partial remission F33.41 and 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.1 [facility] [id number] [address] 1596 Jul, [facility] [id number] [address] 0452 Jul, [facility] [id number] [place] [address] 02592- 7581 Jul, Major depressive disorder, recurrent episode, in partial remission F33.41 ; 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.1 and 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 [facility] [id number] [place] [address] 78569- 8904 Jun, [facility] [id number] [place] [address] 54173- 7277 Apr, Major depression, recurrent 296.30 and Anxiety disorder, unspecified F41.9 [facility] [id number] [place] [address] 55794- 5287 Feb, [facility] [id number] [place] [address] 23996- 5301 Jan, [facility] [id number] [place] [address] 21903- 7049 Dec, Major depressive disorder, recurrent, in partial remission F33.41 and Anxiety disorder, unspecified F41.9 [facility] [id number] [place] [address] 73766- 5209 Dec, [facility] [id number] [address]- 1524 November, [facility] [id number] [place] [address] 46043- 9516 November, [facility] [address] [address]- 1327 Oct, [facility] [id number] [place] [address] 83380- 1796 Aug, [facility] [address] [address] 3425 Jul, [facility] [id number] [place] [address] 81297- 7120 Jul, 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.1 ; Major depressive disorder, recurrent, moderate F33.1 and Anxiety disorder, unspecified F41.9 [facility] [address] [address]- 3477 Jun, [facility] [id number] [place] [address] 33021- 3446 May, [facility] [id number] [place] [address] 58680- 4942 May, [facility] [id number] [place] [address] 97050- 5453 Mar, [facility] [address] [place] [id number] [place] [address] 66195- 9965 Feb, Major depression, recurrent 296.30 ; Chronic post-traumatic stress disorder (PTSD) 309.81 ; Anxiety 300.00 ; No condition on [place] II V71.09 and No condition on axis III V71.09 [facility] [address] [id number] [place] [address] 76145- 4919 Jan, Major depression 296.20 ; 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 300.02 ; 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 ; No condition on [place] II V71.09 and No condition on axis III V71.09 [facility] [address] [place] [address] 94431- 5179 15 Dec, 2014 Depression, major, recurrent, moderate 296.32 ; 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 300.02 and [place] II diagnosis deferred 799.9 [facility] [address] [place] [address] 25406- 8777 Dec, Major depressive disorder, recurrent episode, in partial or unspecified remission 296.35 and Panic disorder without agoraphobia 300.01 [facility] [address] [address]- 6624 Oct, [facility] [address] [place] [id number] [place] [address] 42515- 9183 Oct, [facility] [place] [facility] [address] [id number] [place] [address]- 9822 Mar, [facility] [place] [facility] [address] [id number] [place] [address]- 0425 Feb, [facility] [place] [facility] [address] [id number] [place] [address]- 6641 Feb, [facility] [place] [facility] [address] [id number] [place] [address]- 6099 Feb, [facility] [place] [facility] [address] [id number] [place] [address]- 8509 Feb, [facility] [place] [facility] [address] [id number] [place] [address]- 3459 Feb, [facility] [place] [facility] [address] [id number] [place] [address]- 9791 Feb, [facility] [place] [facility] [address] [id number] [place] [address]- 3502 November, [facility] [place] [facility] [address] [id number] [place] [address]- 7695 November, [facility] [place] [facility] [address] [id number] [place] [address]- 8125 November, [facility] [place] [facility] [address] [id number] [place] [address]- 6207 November, [facility] [place] [facility] [address] [id number] [place] [address]- 0059 November, [facility] [place] [facility] [address] [id number] [place] [address]- 4544 November, [facility] [place] [facility] [address] [id number] [place] [address]- 0163 Oct, [facility] [place] [facility] [address] [id number] [place] [address]- 2392 Oct, [facility] [place] [facility] [address] [id number] [place] [address]- 2633 Sep, [facility] [place] [facility] [address] [id number] [place] [address]- 0922 Sep, [facility] [place] [facility] [address] [id number] [place] [address]- 5276 Sep, [facility] [place] [facility] [address] [facility] [id number] [place] [address]- 6048 Sep, [facility] [place] [facility] [address] [id number] [place] [address]- 1242 Sep, [facility] [place] [facility] [address] [id number] [place] [address]- 2473 Sep, [facility] [place] [facility] [address] [id number] [place] [address]- 9567 Aug, [facility] [place] [facility] [address] [id number] [place] [address]- 2814 Aug, [facility] [place] [facility] [address] [id number] [place] [address]- 7710 Aug, [facility] [place] [facility] [address] [id number] [place] [address]- 8283 Aug, [facility] [place] [facility] [address] [facility] [id number] [place] [address]- 8342 Jul, [facility] [place] [facility] [address] [id number] [place] [address]- 2963 Jul, [facility] [place] [facility] [address] [id number] [place] [address]- 2041 Jul, [facility] [place] [facility] [address] [id number] [place] [address]- 7804 Jul, [facility] [place] [facility] [address] [id number] [place] [address]- 0962 Jul, [facility] [place] [facility] [address] [facility] [id number] [place] [address]- 3722 Jul, [facility] [place] [facility] [address] [id number] [place] [address]- 9351 Jun, [facility] [place] [facility] [address] [id number] [place] [address]- 6694 Jun, [facility] [place] [facility] [address] [id number] [place] [address]- 2546 Jun, [facility] [place] [facility] [address] [id number] [place] [address] 2546 Jun, [facility] [place] [facility] [address] [id number] [place] [address]- 7627 May, [facility] [place] [facility] [address] [id number] [place] [address]- 6926 May, [facility] [place] [facility] [address] [id number] [place] [address]- 2006 May, [facility] [place] [facility] [address] [id number] [place] [address]- 5415 May, [facility] [place] [facility] [address] [id number] [place] [address]- 6151 Apr, [facility] [place] [facility] [address] [id number] [place] [address]- 2285 Mar, [facility] [place] [facility] [address] [id number] [place] [address]- 0481 Mar, [facility] [place] [facility] [address] [id number] [place] [address]- 2381 Feb, [facility] [place] [facility] [address] [id number] [place] [address]- 4892 Feb, [facility] [place] [facility] [address] [id number] [place] [address]- 2536 Feb, [facility] [place] [facility] [address] [id number] [place] [address]- 2546 Jan, [facility] [place] [facility] [address] [id number] [place] [address]- 0503 Dec, [facility] [place] [facility] [address] [id number] [place] [address]- 8015 Dec, [facility] [place] [facility] [address] [id number] [place] [address]- 9160 Dec, [facility] [place] [facility] [address] [id number] [place] [address]- 6184 Dec, [facility] [place] [facility] [address] [id number] [place] [address]- 9268 November, [facility] [place] [facility] [address] [id number] [place] [address]- 4239 Sep, [facility] [place] [facility] [address] [id number] [place] [address]- 7189 Aug, [facility] [place] [facility] [address] [id number] [place] [address]- 6152 Jul, [facility] [place] [facility] [address] [id number] [place] [address]- 0392 Jul, [facility] [place] [facility] [address] [id number] [place] [address]- 2853 Jun, [facility] [place] [facility] [address] [id number] [place] [address]- 1622 Jun, [facility] [place] [facility] [address] [id number] [place] [address]- 7865 May, [facility] [place] [facility] [address] [id number] [place] [address]- 4059 May, [facility] [place] [facility] [address] [id number] [place] [address]- 0863 Aug, [facility] [place] [facility] [address] [id number] [place] [address]- 4918 Jun, [facility] [place] [facility] [address] [id number] [place] [address]- 9277 May, [facility] [place] [facility] [address] [facility] [id number] [place] [address]- 4327 May, [facility] [address] [facility] [id number] [place] [address]- 8185 May, [facility] [address] [facility] [id number] [place] [address]- 7297 May, [facility] [address] [facility] [id number] [place] [address]89 Apr, IMMUNIZATIONS No Known Immunizations SOCIAL HISTORY Never Assessed REASON FOR VISIT med refill PLAN OF CARE VITAL SIGNS MEDICATIONS Medication Instructions Dosage Frequency Start Date End Date Duration Status Rexulti 1 MG Orally Once a day 1 tablet 24h Jul, 14 days Active RESULTS No Results PROCEDURES No [...]
--- OUTSIDE RECORDS SUMMARY | 2018-05-13 11:31 | XMS REPORT ---
Author Author TATI MILLARD Organization [facility] Address [address] [place] [address] Care Team Providers Care [employer] Counselor Name Role Phone TATI MILLARD Unavailable PROBLEMS Type Condition ICD9-CM Code ZPA10-EB Code Onset Dates Condition Status SNOMED Code Problem Major depressive disorder, recurrent episode, in partial or unspecified remission 296.35 Active 76879922 Problem Panic disorder without agoraphobia 300.01 Active 91236241 ALLERGIES Substance Reaction Event Type Date Status Codeine Sulfate hives Drug Allergy Oct, Active Cefadroxil Fainting Drug Allergy Oct, Active ENCOUNTERS Encounter Location Date Diagnosis [place] [id number] [address] Apr, [place] [address] [place] [id number] [place] [address] Jan, Major depressive disorder, recurrent episode, in partial remission F33.41 [place] [id number], [place] [address] Jan, Major depressive disorder, recurrent episode, in partial remission F33.41 and 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.1 [place] [id number], [place] [address] Jan, [place] [id number] [address] Dec, Major depressive disorder, recurrent episode, in partial remission F33.41 [place] [id number], [place] [address] Dec, Major depressive disorder, recurrent episode, in partial remission F33.41 [place] [address] [place] [id number] [place] [address]44- 27[address] Oct, Major depressive disorder, recurrent episode, in partial remission F33.41 and 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.1 [facility] [address], [place] [address] Jun, Major depressive disorder, recurrent episode, in partial remission F33.41 and 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.1 [facility] [address], [place] [address] Feb, 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.1 [facility] [id number] [place] [address]233- 7236 Jan, 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.1 [facility] [address] [place] [id number] [place] [address]- [address]34 Jan, Major depressive disorder, recurrent episode, in partial remission F33.41 ; 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.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 [facility] [address] [address] Dec, [facility] [id number] [place] [address] 057[address]- 5806 Dec, [facility] [id number] [place] [address] 18490- 5227 Dec, Major depressive disorder, recurrent episode, in partial remission F33.41 [facility] [address] [address] November, [facility] [address] [address] November, Major depressive disorder, recurrent episode, in partial remission F33.41 and 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.1 [facility] [address], [place] [address] Oct, Major depressive disorder, recurrent episode, in partial remission F33.41 and 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.1 [facility] [id number] [place] [address] 53795- 0249 Jul, [facility] [address] [address] Jul, [facility] [address] [address] Jul, Major depressive disorder, recurrent episode, in partial remission F33.41 ; 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.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 [facility] [address] [address] [id number] [address] Jun, [facility] [address] [place] [id number] [place] [address]- 4065 Apr, Major depression, recurrent 296.30 and Anxiety disorder, unspecified F41.9 [facility] [address], [place] [address] Feb, [facility] [address] [id number] [address] Jan, [facility] [address], [place] [address] Dec, Major depressive disorder, recurrent, in partial remission F33.41 and Anxiety disorder, unspecified F41.9 [facility] [address] [address] 8[address] Dec, [facility] [address] [address] November, [facility] [address], [place] [address] 2546 November, [facility] [id number] [address] [address] Oct, [facility] [address] [address] 2546 Aug, [facility] [address], [place] [address] Jul, [facility] [id number] [place] [address]- 3047 Jul, 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.1 ; Major depressive disorder, recurrent, moderate F33.1 and Anxiety disorder, unspecified F41.9 [facility] [id number] [place] [address]- 5414 Jun, [facility] [address] [address] May, [facility] [address] [place] [id number] [place] [address]- 9491 May, [facility] [address] [place] [id number] [place] [address] 79275- 5008 Mar, [facility] [address] [place] [id number] [place] [address] 10905- 8640 Feb, Major depression, recurrent 296.30 ; Chronic post-traumatic stress disorder (PTSD) 309.81 ; Anxiety 300.00 ; No condition on [place] II V71.09 and No condition on axis III V71.09 [place] [address] [place] [id number] [place] [address] 44[address]- 9220 Jan, Major depression 296.20 ; 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 300.02 ; 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 ; No condition on [place] II V71.09 and No condition on axis III V71.09 [facility] [address] [place] [id number] [place] [address] 63442- 3636 Dec, Depression, major, recurrent, moderate 296.32 ; 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 300.02 and [place] II diagnosis deferred 799.9 [facility] [address] [place] [id number] [place] [address] 14186- 3545 Dec, Major depressive disorder, recurrent episode, in partial or unspecified remission 296.35 and Panic disorder without agoraphobia 300.01 [facility] [address] [place] [id number] [place] [address] 51441- 8421 Oct, [facility] [place] [facility] [address] [id number] [place] [address]- [address] Oct, [facility] [place] [facility] [address] [id number] [place] [address]- 4604 Mar, [facility] [place] [facility] [address] [id number] [place] [address]- 7232 Feb, [facility] [place] [facility] [address] [id number] [place] [address]- 9371 Feb, [facility] [place] [facility] [address] [id number] [place] [address]- 6534 Feb, [facility] [place] [facility] [address] [id number] [place] [address]- 8581 Feb, [facility] [place] [facility] [address] [id number] [place] [address]- 2881 Feb, [facility] [place] [facility] [address] [id number] [place] [address]- 4308 Feb, [facility] [place] [facility] [address] [id number] [place] [address]- 3055 November, [facility] [place] [facility] [address] [id number] [place] [address]- 5227 November, [facility] [place] [facility] [address] [id number] [place] [address]- 6583 November, [facility] [place] [facility] [address] [id number] [place] [address]- 6206 November, [facility] [place] [facility] [address] [id number] [place] [address]- 5665 November, [facility] [place] [facility] [address] [id number] [place] [address]- 4833 November, [facility] [place] [facility] [address] [id number] [place] [address]- 9946 Oct, [facility] [place] [facility] [address] [id number] [place] [address]- 8331 Oct, [facility] [place] [facility] [address] [id number] [place] [address]- 3157 Sep, [facility] [place] [facility] [address] [id number] [place] [address]- 4604 Sep, [facility] [place] [facility] [address] [id number] [place] [address]- 8321 Sep, [facility] [place] [facility] [address] [id number] [place] [address]- 6305 Sep, [facility] [place] [facility] [address] [id number] [place] [address]- 7395 Sep, [facility] [place] [facility] [address] [id number] [place] [address]- 0243 Sep, [facility] [place] [facility] [address] [id number] [place] [address]- 9114 Aug, [facility] [place] [facility] [address] [id number] [place] [address]- 8623 Aug, [facility] [place] [facility] [address] [id number] [place] [address]- 1171 Aug, [facility] [place] [facility] [address] [id number] [place] [address]- 7438 Aug, [facility] [place] [facility] [address] [id number] [place] [address]- 2683 Jul, [facility] [place] [facility] [address] [id number] [place] [address]- 7285 Jul, [facility] [place] [facility] [address] [id number] [place] [address]- 5456 Jul, [facility] [place] [facility] [address] [id number] [place] [address]- 3307 Jul, [facility] [place] [facility] [address] [id number] [place] [address]- 0388 Jul, [facility] [place] [facility] [address] [id number] [place] [address]- 9383 Jul, [facility] [address] [id number] [place] [address]- 3414 Jun, [facility] [address] [id number] [place] [address]- 8504 Jun, [facility] [address] [id number] [place] [address]- 8076 Jun, [facility] [address] [id number] [place] [address]- 1154 Jun, [facility] [address] [id number] [place] [address]- 7777 May, [facility] [address] [id number] [place] [address]- 4442 May, [facility] [address] [id number] [place] [address]- 7117 May, [facility] [address] [id number] [place] [address]- 2035 May, [facility] [address] [id number] [place] [address]- 1152 Apr, [facility] [address] [id number] [place] [address]- 8560 Mar, [facility] [place] [facility] [address] [id number] [place] [address]- 2283 Mar, [facility] [address] [id number] [place] [address]- 0180 Feb, [facility] [place] [facility] [address] [id number] [place] [address]- 0756 Feb, [facility] [place] [facility] [address] [id number] [place] [address]- 2546 Feb, [facility] [address] [id number] [place] [address]- 5114 Jan, [facility] [address] [id number] [place] [address]- 3999 Dec, [facility] [place] [facility] [address] [id number] [place] [address]- 6586 Dec, [facility] [place] [facility] [address] [id number] [place] [address]150 Dec, [facility] [place] [facility] [address] [id number] [place] [address]- 8413 Dec, [facility] [place] [facility] [address] [id number] [place] [address] November, [facility] [place] [facility] [address] [id number] [place]- 9737 Sep, [facility] [place] [facility] [address] [id number] [place] [address]- 9380 Aug, [facility] [place] [facility] [address] [id number] [place] [address]- 2420 Jul, [facility] [place] [facility] [address] [id number] [place] [address]- 4469 Jul, [facility] [place] [facility] [address] [id number] [place] [address]- 8499 Jun, [facility] [place] [facility] [address] [id number] [place] [address]- 9386 Jun, [facility] [place] [facility] [address] [id number] [place] [address]- 8611 May, [facility] [place] [facility] [address] [id number] [place] [address]- 2905 May, [facility] [place] [facility] [address] [id number] [place]- [address]268 10 Aug, 2011 [facility] [place] [facility] [address] [id number] [place] [address]- 1165 Jun, [facility] [place] [facility] [address] [facility] [id number] [place] [address]- 9737 11 May, 2009 [facility] [address] [facility] [id number] [address]- 6669 May, [facility] [address] [facility] [id number], [place] [address]- 9516 May, [facility] [address] [facility] [id number], [place] [address]- 7817 May, [facility] [address] [facility] [id number], [place] [address]- 7462 Apr, IMMUNIZATIONS No Known Immunizations SOCIAL HISTORY Never Assessed REASON FOR VISIT f/u [place] PLAN OF CARE Activity Details Follow Up 3 Months Reason: f/u VITAL SIGNS Height 63.75 in 2017-11-15 Weight 128 lbs 2017-11-15 Heart Rate 72 bpm 2017-11-15 Respiratory Rate 18 2017-11-15 BMI 22.14 kg/m2 2017-11-15 Blood pressure systolic 108 mmHg 2017-11-15 Blood pressure diastolic 58 mmHg 2017-11-15 MEDICATIONS Medication Instructions Dosage Frequency Start Date End Date Duration Status Metoprolol Tartrate 25 MG Orally Twice a day 1 tablet 12h Active Aspirin 81 mg 1 Capsule by Oral route 1 time per day Feb, Not-Taking Lipitor 80 MG Orally Once a day 1 tablet 24h Active Levothyroxine Sodium 88 MCG Orally Once a day 1 tablet 24h Active Niaspan 500 MG Orally Once a day 1 tablet at bedtime 24h Not- Taking Niacin ER 1000 MG Orally Once a day 1 tablet 24h Active Gabapentin 600 MG Orally twice a day 1 tablet 12h 13 Oct, 2016 Active Duloxetine HCl 60MG TAKE 1 CAPSULE TWICE A DAY Active Vitamin D3 2000 UNIT Active [place] 3 1000 MG Orally Once a day 1 capsule 24h Active Lisinopril 5 mg Orally Once a day .5 tablet 24h Not-Taking Colestid 1 gram 1 Tablet by Oral route 2 times per day As needed Sep Active Omeprazole 20 MG Orally Once a day 1 capsule 24h Active Lovaza 1 GM Orally Twice a day 2 capsules 12h Active Centrum Cardio Orally Once a day 1 tablet 24h Active Iron Complex Not-Taking Digoxin 250 mcg 1 Tablet by Oral route 2 times per day 24h Feb, Active Rexulti 1 MG Orally Once a day 1 tablet 24h Jul, Active RESULTS No Results PROCEDURES Procedure Date Ordered Result Body Site [facility] VISIT ESTABLISHED PATIENT November 15, 2017 INSTRUCTIONS MEDICATIONS ADMINISTERED No Known Medications MEDICAL [...]
--- OUTSIDE RECORDS SUMMARY | 2018-05-13 11:31 | XMS REPORT ---
Author Author TATI MILLARD [facility] Address [address] [place] [address] Care Team Providers Care Sales Training Coordinator Name Role Phone TATI MILLARD Unavailable PROBLEMS Type Condition ICD9-CM Code [id number] Code Onset Dates Condition Status SNOMED Code Problem Major depressive disorder, recurrent episode, in partial or unspecified remission 296.35 Active 70497848 Problem Panic disorder without agoraphobia 300.01 Active 52296244 ALLERGIES No Information ENCOUNTERS Encounter Location Date Diagnosis [place] [id number] [place] [address] 14356- 8638 Apr, [facility] [id number] [place] [address] 66641- 9541 Feb, Major depressive disorder, recurrent episode, in partial remission F33.41 [facility] [id number] [place] [address] 28668- 2247 Jan, Major depressive disorder, recurrent episode, in partial remission F33.41 [place] [address] [place] [address] 91741- 0641 Jan, Major depressive disorder, recurrent episode, in partial remission F33.41 and 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.1 [facility] [address] [place] [address] 37728- 7570 Jan, [facility] [id number] [place] [address] 03926- 5134 Dec, Major depressive disorder, recurrent episode, in partial remission F33.41 [facility] [address] [place] [address] 18146- 1372 Dec, Major depressive disorder, recurrent episode, in partial remission F33.41 [place] [address] [facility] [id number] [address] 2546 Oct, Major depressive disorder, recurrent episode, in partial remission F33.41 and 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.1 [facility] [address] [facility] [place] [id number] [place] [address] 2546 Jun, Major depressive disorder, recurrent episode, in partial remission F33.41 and 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.1 [facility] [address] [address] 7446 Feb, 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.1 [facility] [id number] [address]- 8856 Jan, 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.1 [facility] [id number] [address]- 8526 Jan, Major depressive disorder, recurrent episode, in partial remission F33.41 ; 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.1 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 [facility] [id number] [address]- 2156 Dec, [facility] [id number] [address] 2546 Dec, [facility] [id number] [address]- 7686 Dec, Major depressive disorder, recurrent episode, in partial remission F33.41 [facility] [id number] [address]- 8046 November, [facility] [address] [facility] [place] [id number] [place] [address] 2546 November, Major depressive disorder, recurrent episode, in partial remission F33.41 and 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.1 [facility] [address] [facility] [place] [id number] [place] [address]- 6796 Oct, Major depressive disorder, recurrent episode, in partial remission F33.41 and 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.1 [facility] [address] [place] [address]- 8341 Jul, [facility] [address] [address]- 9336 Jul, [facility] [address] [address]- 1496 Jul, Major depressive disorder, recurrent episode, in partial remission F33.41 ; 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.1 and Other [place] [facility] ( current) drug therapy Z79.899 [facility] [address] [address] 2546 Jun, [facility] [id number] [place] [address] 03706- 6316 Apr, Major depression, recurrent 296.30 and Anxiety disorder, unspecified F41.9 [facility] [address] [address]- 7273 Feb, [facility] [address] [address]- 7389 Jan, [facility] [address] [address]- 7787 Dec, Major depressive disorder, recurrent, in partial remission F33.41 and Anxiety disorder, unspecified F41.9 [facility] [address] [address]- 1246 Dec, [facility] [address] [address]- 5216 November, [facility] [address] [address]- 8766 November, [facility] [address] [address] 2546 Oct, [facility] [address] [address]- 0546 Aug, [facility] [address] [place] [address] 51298- 9603 Jul, [facility] [id number] [place] [address] 81061- 4449 Jul, 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.1 ; Major depressive disorder, recurrent, moderate F33.1 and Anxiety disorder, unspecified F41.9 [place] [id number] [place] [address] 30569- 6496 Jun, [facility] [id number] [place] [address] 54428- 4501 May, [place] [id number] [place] [address] 16214- 6852 May, [facility] [id number] [place] [address] 55360- 3220 Mar, [place] [id number] [place] [address] 08978- 7241 Feb, Major depression, recurrent 296.30 ; Chronic post-traumatic stress disorder (PTSD) 309.81 ; Anxiety 300.00 ; No condition on Ansonia II V71.09 and No condition on axis III V71.09 [place] [id number] [place] [address] 14191- 1849 Jan, Major depression 296.20 ; 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 300.02 ; 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 ; No condition on Ansonia II V71.09 and No condition on axis III V71.09 [facility] [id number] [place] [address] 59256- 6006 Dec, Depression, major, recurrent, moderate 296.32 ; 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 300.02 and Ansonia II diagnosis deferred 799.9 [place] [id number] [place] [address] 01245- 1457 Dec, Major depressive disorder, recurrent episode, in partial or unspecified remission 296.35 and Panic disorder without agoraphobia 300.01 [place] [id number] [place] [address] 17549- 4862 Oct, [facility] [place] [facility] [address] [id number] [place] [address]- 8817 Oct, [facility] [place] [facility] [address] [id number] [place] [address]- 2932 Mar, [facility] [place] [facility] [address] [id number] [place] [address]- 0356 Feb, [facility] [place] [facility] [address] [id number] [place] [address]- 4387 Feb, [facility] [place] [facility] [address] [id number] [place] [address]- 1219 Feb, [facility] [place] [facility] [address] [id number] [place] [address]- 6821 Feb, [facility] [place] [facility] [address] [id number] [place] [address]- 6220 Feb, [facility] [place] [facility] [address] [id number] [place] [address]- 0482 Feb, [facility] [place] [facility] [address] [id number] [place] [address]- 8922 November, [facility] [place] [facility] [address] [id number] [place] [address]- 8318 November, [facility] [place] [facility] [address] [id number] [place] [address]- 8331 November, [facility] [place] [facility] [address] [id number] [place] [address]- 7895 November, [facility] [place] [facility] [address] [id number] [place] [address]- 1756 November, [facility] [place] [facility] [address] [id number] [place] [address]- 8134 November, [facility] [place] [facility] [address] [id number] [place] [address]- 4246 Oct, [facility] [place] [facility] [address] [id number] [place] [address]- 3122 Oct, [facility] [place] [facility] [address] [id number] [place] [address]- 6846 Sep, [facility] [place] [facility] [address] [id number] [place] [address]- 0206 Sep, [facility] [place] [facility] [address] [id number] [place] [address]- 0578 Sep, [facility] [place] [facility] [address] [id number] [place] [address]- 8722 Sep, [facility] [place] [facility] [address] [id number] [place] [address]- 7485 Sep, [facility] [place] [facility] [address] [id number] [place] [address]- 7756 Sep, [facility] [place] [facility] [address] [id number] [place] [address]- 1815 Aug, [facility] [place] [facility] [address] [id number] [place] [address]- 1414 Aug, [facility] [place] [facility] [address] [id number] [place] [address]- 7908 Aug, [facility] [place] [facility] [address] [id number] [place] [address]- 9629 Aug, [facility] [place] [facility] [address] [id number] [place] [address]- 1694 Jul, [facility] [place] [facility] [address] [id number] [place] [address]- 0851 Jul, [facility] [place] [facility] [address] [id number] [place] [address]- 6915 Jul, [facility] [place] [facility] [address] [id number] [place] [address]- 5685 Jul, [facility] [place] [facility] [address] [id number] [place] [address]- 0016 Jul, [facility] [place] [facility] [address] [id number] [place] [address]- 4553 Jul, [facility] [place] [facility] [address] [id number] [place] [address]- 3966 Jun, [facility] [place] [facility] [address] [id number] [place] [address]- 9519 Jun, [facility] [place] [facility] [address] [id number] [place] [address]- 2546 Jun, [facility] [place] [facility] [address] [id number] [place] [address] 254 Jun, [facility] [place] [facility] [address] [id number] [place] [address]- 3796 May, [facility] [place] [facility] [address] [id number] [place] [address]- 2553 May, [facility] [place] [facility] [address] [id number], [place] [address]- 5747 May, [facility] [place] [facility] [address] [id number] [place] [address]- 1536 May, [facility] [place] [facility] [address] [id number] [place] [address]- 6026 Apr, [facility] [place] [facility] [address] [id number], [place] [address]- 7794 Mar, [facility] [place] [facility] [address] [id number], [place] [address]- 3521 Mar, [facility] [place] [facility] [address] [id number] [place] [address] 254 Feb, [facility] [place] [facility] [address] [id number], [place] [address]- 5086 Feb, [facility] [place] [facility] [address] [id number] [place] [address]- 7096 Feb, [facility] [place] [facility] [address] [id number] [place] [address]- 2380 Jan, [facility] [address] [id number] [place] [address]- 1248 Dec, [facility] [place] [facility] [address] [id number] [place] [address]- 3723 Dec, [facility] [address] [id number] [place] [address]- 8046 Dec, [facility] [place] [facility] [address] [id number] [place] [address]- 3417 Dec, [facility] [address] [id number] [place] [address]- 7882 November, [facility] [address] [id number] [place] [address]- 5476 Sep, [facility] [address] [id number] [place] [address]- 6783 Aug, [facility] [address] [id number] [place] [address]- 1844 Jul, [facility] [address] [id number] [place] [address]- 3144 Jul, [facility] [address] [id number] [place] [address]- 5161 Jun, [facility] [address] [id number] [place] [address]- 5275 Jun, [facility] [place] [facility] [address] [id number] [place] [address]- 8038 May, [facility] [place] [facility] [address] [id number] [place] [address]- 8835 May, [facility] [place] [facility] [address] [id number] [place] [address]- 0215 10 Aug, 2011 [facility] [address] [id number] [place] [address]- 8958 Jun, [facility] [address] [facility] [id number] [address] 6110 May, [facility] [id number] [address]- 5651 May, [facility] [id number] 6949 May, [facility] [id number] 3907 May, [facility] [address] [facility] [id number] [address]- 2860 Apr, IMMUNIZATIONS No Known Immunizations SOCIAL HISTORY Never Assessed REASON FOR VISIT Medication question PLAN OF CARE VITAL SIGNS MEDICATIONS Unknown Medications RESULTS No Results PROCEDURES No Known procedures [...]
--- OUTSIDE RECORDS SUMMARY | 2018-05-13 11:32 | XMS REPORT ---
Author Author JOÃO LEONARD Organization [employer] Address Unknown Phone Unavailable Care Team Providers Care Breeder Service Technician Name Role Phone JOÃO LEONARD Unavailable Allergies No Known Allergies Problems Problem Type Condition Code Onset Dates Condition Status Problem Major depressive disorder, recurrent episode, in partial or unspecified remission 296.35 Active Problem Panic disorder without agoraphobia 300.01 Active Medications No Known Medications Results No Known Results Summary Purpose [employer] Submission
--- OUTSIDE RECORDS SUMMARY | 2018-05-13 11:32 | XMS REPORT ---
Author Author DAVID ALAN Organization [employer] Address Unknown Phone Unavailable Care Team Providers Care Yard Switch Operator Name Role Phone DAVID ALAN Unavailable Allergies No Known Allergies Problems Problem Type Condition Code Onset Dates Condition Status Problem Major depressive disorder, recurrent episode, in partial or unspecified remission 296.35 Active Problem Panic disorder without agoraphobia 300.01 Active Medications Medication Code System Code Instructions Start Date End Date Status Dosage Cymbalta [facility] [address]-93 60 mg Orally Twice a day. Feb 25, 2014 1 capsule Results No Known Results Summary Purpose [employer] Submission
--- OUTSIDE RECORDS SUMMARY | 2018-05-13 11:32 | XMS REPORT ---
Author Author MAKENZIE SEPULVEDA Organization [employer] Address Unknown Phone Unavailable Care Team Providers Care Fpga Engineer Name Role Phone MAKENZIE SEPULVEDA CP Unavailable Allergies No Known Allergies Problems Problem Type Condition Code Onset Dates Condition Status Problem Major depressive disorder, recurrent episode, in partial or unspecified remission 296.35 Active Problem Panic disorder without agoraphobia 300.01 Active Medications Medication Code System Code Instructions Start Date End Date Status Dosage Gabapentin [facility] [id number] 300MG Orally daily TAKE 1 CAPSULE in am and 2 caps at HS Results No Known Results Summary Purpose [employer] Submission
--- OUTSIDE RECORDS SUMMARY | 2018-05-13 11:32 | XMS REPORT ---
Author Author MAKENZIE Delatorre Organization [facility] Address [address] [place] [address] Care Team Providers Care Personnel Administrator Name Role Phone benjieMary Beth MAKENZIE Unavailable PROBLEMS Type Condition ICD9-CM Code [id number] Code Onset Dates Condition Status SNOMED Code Problem Major depressive disorder, recurrent episode, in partial or unspecified remission 296.35 Active 02536967 Problem Panic disorder without agoraphobia 300.01 Active 77740104 ALLERGIES Substance Reaction Event Type Date Status Codeine Sulfate hives Drug Allergy November, Active Cefadroxil Fainting Drug Allergy November, Active SOCIAL HISTORY Never Assessed PLAN OF CARE Activity Details Follow Up 6 Weeks - 8 weeks with new provider Reason: VITAL SIGNS Height 63.75 in 2016-12-06 Weight 128.7 lbs 2016-12-06 Heart Rate 64 bpm 2016-12-06 Respiratory Rate 18 2016-12-06 BMI 22.26 kg/m2 2016-12-06 Blood pressure systolic 108 mmHg 2016-12-06 Blood pressure diastolic 50 mmHg 2016-12-06 MEDICATIONS Medication Instructions Dosage Frequency Start Date End Date Duration Status Centrum Cardio Orally Once a day 1 tablet 24h Active Aspirin 81 mg 1 Capsule by Oral route 1 time per day Feb, Active Digoxin 250 mcg 1 Tablet by Oral route 2 times per day 24h Feb, Active Gabapentin 600 MG Orally twice a day 1 tablet 12h Oct, Active Omeprazole 20 MG Orally Once a day 1 capsule 24h Active Colestid 1 gram 1 Tablet by Oral route 2 times per day As needed Sep Active Iron Complex Active Duloxetine HCl 60 MG Orally Twice a day 1 capsule 12h November, 30 day(s) Active Niacin ER 1000 MG Orally Once a day 1 tablet 24h Active Lisinopril 5 mg Orally Once a day .5 tablet 24h Active Rexulti 1 MG Orally Once a day 1 tablet 24h Jul, 30 days Active RESULTS No Results PROCEDURES Procedure Date Ordered Result Body Site [facility] VISIT ESTABLISHED PATIENT December 06, 2016 IMMUNIZATIONS No Known Immunizations MEDICAL (GENERAL) HISTORY Type Description Date Medical [...]
--- OUTSIDE RECORDS SUMMARY | 2018-05-13 11:32 | XMS REPORT ---
Author Author MAKENZIE Delatorre Organization [facility] Address [address] [place] [address] Care Team Providers Care Community Organization Worker Name Role Phone MAKENZIE Delatorre Unavailable PROBLEMS Type Condition ICD9-CM Code [id number] Code Onset Dates Condition Status SNOMED Code Problem Major depressive disorder, recurrent episode, in partial or unspecified remission 296.35 Active 20183067 Problem Panic disorder without agoraphobia 300.01 Active 02672072 ALLERGIES No Information SOCIAL HISTORY Never Assessed PLAN OF CARE VITAL SIGNS MEDICATIONS Unknown Medications RESULTS No Results PROCEDURES No Known procedures IMMUNIZATIONS No Known Immunizations MEDICAL (GENERAL) HISTORY [...]
--- OUTSIDE RECORDS SUMMARY | 2018-05-13 11:32 | XMS REPORT ---
Author Author MAKENZIE Delatorre [facility] Address [address] [place] [address] Care Team Providers Care Motor Mechanic Name Role Phone MAKENZIE Delatorre Unavailable PROBLEMS Type Condition ICD9-CM Code LUP83-UA Code Onset Dates Condition Status SNOMED Code Problem Major depressive disorder, recurrent episode, in partial or unspecified remission 296.35 Active 59886078 Problem Panic disorder without agoraphobia 300.01 Active 25085553 ALLERGIES Unknown Allergies SOCIAL HISTORY No smoking Hx information available PLAN OF CARE VITAL SIGNS MEDICATIONS Unknown Medications RESULTS No Results PROCEDURES No Known procedures IMMUNIZATIONS No Known Immunizations
--- OUTSIDE RECORDS SUMMARY | 2018-05-13 11:32 | XMS REPORT ---
Author Author CODY RODRIGUEZ Organization [employer] Address Unknown Phone Unavailable Care Team Providers Care Parts Department Manager Name Role Phone CODY RODRIGUEZ Unavailable Allergies No Known Allergies Problems Problem Type Condition Code Onset Dates Condition Status Problem Major depressive disorder, recurrent episode, in partial or unspecified remission 296.35 Active Problem Panic disorder without agoraphobia 300.01 Active Medications Medication Code System Code Instructions Start Date End Date Status Dosage Cymbalta [facility] [address]-22 60 MG Orally Twice a day. NEEDS APPOINTMENT FOR FURTHER REFILLS Feb 25, 2014 1 capsule Results No Known Results Summary Purpose [employer] Submission
--- OUTSIDE RECORDS SUMMARY | 2018-05-13 11:32 | XMS REPORT ---
Author Author TATI MILLARD [facility] Address [address] [place] [address] Care Team Providers Care Environmental Protection Specialist Name Role Phone TATI MILLARD Unavailable PROBLEMS Type Condition ICD9-CM Code [id number] Code Onset Dates Condition Status SNOMED Code Problem Major depressive disorder, recurrent episode, in partial or unspecified remission 296.35 Active 44181379 Problem Panic disorder without agoraphobia 300.01 Active [id number] ALLERGIES No Information ENCOUNTERS Encounter Location Date Diagnosis [place] [id number] [place] [address] 75443- 9770 Oct, [place] [id number] [place] [address] 33903- 7452 Jun, Major depressive disorder, recurrent episode, in partial remission F33.41 and 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.1 [place] [id number] [place] [address] 11170- 2860 Feb, 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.1 [place] [id number] [place] [address] 07610- 6316 Jan, 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.1 [place] [id number] [place] [address] 49811- 5430 Jan, Major depressive disorder, recurrent episode, in partial remission F33.41 ; 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.1 and Other terminal make up operator ( current) drug therapy Z79.899 [place] [id number] [place] [address] 44607- 6071 Dec, [place] [id number] [place] [address] 96291- 7536 Dec, [place] [id number] [address]886 Dec, Major depressive disorder, recurrent episode, in partial remission F33.41 [facility] [address] [address] November, [facility] [id number] [address] 2546 November, Major depressive disorder, recurrent episode, in partial remission F33.41 and 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.1 [facility] [id number] [address] 8026 Oct, Major depressive disorder, recurrent episode, in partial remission F33.41 and 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.1 [facility] [id number] [place] [address]86 Jul, [place] [address] [address] 7[address] Jul, [facility] [address] [address] 1647 Jul, Major depressive disorder, recurrent episode, in partial remission F33.41 ; 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.1 and Other skilled nursing ( current) drug therapy Z79.899 [facility] [address] [address] 6126 Jun, [facility] [address] [address] 4146 Apr, Major depression, recurrent 296.30 and Anxiety disorder, unspecified F41.9 [facility] [id number] [place] [address] 9526 Feb, [facility] [id number] [address] 1416 Jan, [facility] [id number] [place] [address] 0956 Dec, Major depressive disorder, recurrent, in partial remission F33.41 and Anxiety disorder, unspecified F41.9 [facility] [address] [address] 7706 Dec, [facility] [address] [address] 2194 November, [facility] [address] [address] 6368 November, [facility] [id number] [place] [address] 408128- 8630 Oct, [facility] [address] [address]- 7702 Aug, [facility] [id number] [place] [address] 194955- 1953 Jul, [facility] [address] [address]- 4204 Jul, 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.1 ; Major depressive disorder, recurrent, moderate F33.1 and Anxiety disorder, unspecified F41.9 [facility] [address] [address]- 8849 Jun, [facility] [address] [address]- 9123 May, [facility] [address] [address]- 7734 May, [facility] [address] 3110 Mar, [facility] [id number] [address] [address] Feb, Major depression, recurrent 296.30 ; Chronic post-traumatic stress disorder (PTSD) 309.81 ; Anxiety 300.00 ; No condition on [place] II V71.09 and No condition on axis III V71.09 [facility] [address] [address]- 0596 Jan, Major depression 296.20 ; 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 300.02 ; 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 ; No condition on [place] II V71.09 and No condition on axis III V71.09 [facility] [id number] [place] [address] 10828- 2170 15 Dec, 2014 Depression, major, recurrent, moderate 296.32 ; 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 300.02 and [place] II diagnosis deferred 799.9 [facility] [id number] [place] [address] 22366- 6816 Dec, Major depressive disorder, recurrent episode, in partial or unspecified remission 296.35 and Panic disorder without agoraphobia 300.01 [facility] [id number] [place] [address] 50497- 0961 Oct, [facility] [id number] [place] [address] 23430- 8105 Oct, [facility] [id number] [place] [address] 86334- 4572 Mar, [facility] [id number] [place] [address] 39146- 2680 Feb, [facility] [id number] [place] [address] 97619- 5916 Feb, [facility] [address] [address]- 6803 Feb, [facility] [address] [address]- 7283 Feb, [facility] [address] [address]- 1033 Feb, [facility] [id number] [place] [address] 95203- 5848 Feb, [facility] [address] [address]- 3246 November, [facility] [id number] [place] [address] 09268- 5589 November, [facility] [place] [facility] [address] [id number] [place] [address]- 8468 November, [facility] [place] [facility] [address] [id number] [place] [address]80 November, [facility] [place] [facility] [address] [id number] [place] [address]- 8103 November, [facility] [place] [facility] [address] [id number] [place] [address]- 1157 November, [facility] [place] [facility] [address] [id number] [place] [address]- 0070 Oct, [facility] [place] [facility] [address] [id number] [place] [address]- 0242 Oct, [facility] [place] [facility] [address] [id number] [place] [address]- 1687 Sep, [facility] [place] [facility] [address] [id number] [place] [address]- 2698 Sep, [facility] [place] [facility] [address] [id number] [place] [address]- 6778 Sep, [facility] [place] [facility] [address] [id number] [place] [address]- 2908 Sep, [facility] [place] [facility] [address] [id number] [place] [address]- 6011 Sep, [facility] [place] [facility] [address] [id number] [place] [address]- 4091 Sep, [facility] [place] [facility] [address] [id number] [place] [address]- 4439 Aug, [facility] [place] [facility] [address] [id number] [place] [address]- 1285 Aug, [facility] [place] [facility] [address] [id number] [place] [address]- 9882 Aug, [facility] [place] [facility] [address] [id number] [place] [address]- 1066 Aug, [facility] [address] [id number] [place] [address]- 4080 Jul, [facility] [place] [facility] [address] [id number] [place] [address]- 9076 Jul, [facility] [address] [id number] [place] [address]- 6256 Jul, [facility] [place] [facility] [address] [id number] [place] [address]- 9272 Jul, [facility] [address] [id number] [place] [address]- 9052 Jul, [facility] [address] [id number] [place] [address]- 2223 Jul, [facility] [address] [id number] [place] [address]- 4419 Jun, [facility] [address] [id number] [place] [address]- 8848 Jun, [facility] [place] [facility] [address] [id number] [place] [address]- 4518 Jun, [facility] [address] [id number] [place] [address]- 8767 Jun, [facility] [place] [facility] [address] [id number] [place] [address]- 0152 May, [facility] [place] [facility] [address] [id number] [place] [address]- 3416 May, [facility] [place] [facility] [address] [id number] [place] [address]- 9916 May, [facility] [place] [facility] [address] [id number] [place] [address]- 2546 May, [facility] [place] [facility] [address] [id number] [place] [address]- 1604 Apr, [facility] [address] [id number] [place] [address]- 3978 Mar, [facility] [place] [facility] [address] [id number] [place] [address]- 7833 Mar, [facility] [place] [facility] [address] [id number] [place] [address]- 4056 Feb, [facility] [place] [facility] [address] [id number] [place] [address]- 0352 Feb, [facility] [place] [facility] [address] [id number] [place] [address]- 1852 Feb, [facility] [place] [facility] [address] [id number] [place] [address]- 6596 Jan, [facility] [place] [facility] [address] [id number] [place] [address]- 1744 Dec, [facility] [place] [facility] [address] [id number] [place] [address]- 0622 Dec, [facility] [place] [facility] [address] [id number] [place] [address]- 8950 Dec, [facility] [place] [facility] [address] [id number] [place] [address]- 0168 Dec, [facility] [place] [facility] [address] [id number] [place] [address]- 0206 November, [facility] [place] [facility] [address] [id number] [place] [address]- 8146 Sep, [facility] [place] [facility] [address] [id number] [place] [address]- 6682 Aug, [facility] [place] [facility] [address] [id number] [place] [address]- 1636 Jul, [facility] [place] [facility] [address] [id number] [place] [address]- 3874 Jul, [facility] [place] [facility] [id number] [address]- 7841 Jun, [facility] [address] [address]- 8388 Jun, [facility] [address] [address]- 5860 May, [facility] [address] [address]- 3816 May, [facility] [address] [address]- 8702 Aug, [facility] [id number] [place] [address] 23672- 7031 Jun, [facility] [address] [address]- 6001 May, [facility] [id number] [place] [address] 73320- 9220 May, [facility] [address] [address]- 4311 17 May, 2008 [facility] [address] [address]- 6423 05 May, 2008 [facility] [id number] [address]- 9591 Apr, IMMUNIZATIONS No Known Immunizations SOCIAL HISTORY Never Assessed REASON FOR VISIT Refill request PLAN OF CARE VITAL SIGNS MEDICATIONS Medication [...]
--- OUTSIDE RECORDS SUMMARY | 2018-05-13 11:32 | XMS REPORT ---
Author Author CODY RODRIGUEZ Organization [employer] Address Unknown Phone Unavailable Care Team Providers Care Manager Financial Systems Name Role Phone CODY RODRIGUEZ Unavailable Allergies No Known Allergies Problems Problem Type Condition ICD-9 Code Onset Dates Condition Status Problem Major depressive disorder, recurrent episode, in partial or unspecified remission 296.35 Active Problem Panic disorder without agoraphobia 300.01 Active Medications Medication Code System Code Instructions Start Date End Date Status Dosage Cymbalta [facility] [address]-58 60 MG Orally Twice a day Feb 25, 2014 1 capsule Results No Known Results Summary Purpose [employer] Submission
--- OUTSIDE RECORDS SUMMARY | 2018-05-13 11:32 | XMS REPORT ---
Author Author TATI MILLARD [facility] Address [address] [place] [address] Care Team Providers Care Insulation Board Calender Operator Name Role Phone TATI MILLARD Unavailable PROBLEMS Type Condition ICD9-CM Code AMY52-IM Code Onset Dates Condition Status SNOMED Code Problem Major depressive disorder, recurrent episode, in partial or unspecified remission 296.35 Active 57280813 Problem Panic disorder without agoraphobia 300.01 Active 92310725 ALLERGIES Substance Reaction Event Type Date Status Codeine Sulfate hives Drug Allergy Jun, Active Cefadroxil Fainting Drug Allergy Jun, Active ENCOUNTERS Encounter Location Date Diagnosis [place] [id number] [place] [address]90- 1608 Jan, [place] [address] [place] [id number] [place] [address]87- 2951 Dec, Major depressive disorder, recurrent episode, in partial remission F33.41 [place] [id number] [place] [address] 92477- 3972 Dec, Major depressive disorder, recurrent episode, in partial remission F33.41 [place] [address] [address] Oct, Major depressive disorder, recurrent episode, in partial remission F33.41 and 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.1 [place] [id number] [place] [address] 16986- 5187 Jun, Major depressive disorder, recurrent episode, in partial remission F33.41 and 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.1 [place] [address] [address] Feb, 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.1 [place] [address] [address] Jan, 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.1 [facility] [address] [address] Jan, Major depressive disorder, recurrent episode, in partial remission F33.41 ; 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.1 and Other newscast director ( current) drug therapy Z79.899 [facility] [address] [address] Dec, [facility] [address] [address] Dec, [facility] [address] [address] Dec, Major depressive disorder, recurrent episode, in partial remission F33.41 [place] [address] [address] November, [facility] [address] [address] November, Major depressive disorder, recurrent episode, in partial remission F33.41 and 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.1 [facility] [address] [address] 6[address] Oct, Major depressive disorder, recurrent episode, in partial remission F33.41 and 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.1 [facility] [address] [address] Jul, [facility] [address] [address] 70[address] Jul, [facility] [address] [address] Jul, Major depressive disorder, recurrent episode, in partial remission F33.41 ; 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.1 and Other newscast director ( current) drug therapy Z79.899 [facility] [address] [address] Jun, [facility] [address] [address] [address] Apr, Major depression, recurrent 296.30 and Anxiety disorder, unspecified F41.9 [facility] [address] [place] [address] 69[address] Feb, [facility] [address] [place] [id number] [place] [address] 485637- 6504 Jan, [facility] [address] [address] 1545 Dec, Major depressive disorder, recurrent, in partial remission F33.41 and Anxiety disorder, unspecified F41.9 [facility] [address] [address] 5[address] Dec, [facility] [address] [place] [id number] [address] November, [facility] [address] [address] November, [facility] [address] [place] [id number] [address] 0201 Oct, [facility] [address] [address]- 3[address] Aug, [facility] [address] [address]- 1596 Jul, [facility] [address] [place] [id number] [address] 36[address] Jul, 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.1 ; Major depressive disorder, recurrent, moderate F33.1 and Anxiety disorder, unspecified F41.9 [facility] [address] [place] [id number] [place] [address] 3846 Jun, [facility] [address] [address] May, [facility] [address] [address]- 7665 May, [facility] [address] [place] [id number] [place] [address] 11485- 2902 Mar, [facility] [address] [address] Feb, Major depression, recurrent 296.30 ; Chronic post-traumatic stress disorder (PTSD) 309.81 ; Anxiety 300.00 ; No condition on Omaha II V71.09 and No condition on axis III V71.09 [facility] [address] [place] [id number] [place] [address] 72841- 4228 Jan, Major depression 296.20 ; 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 300.02 ; 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 ; No condition on Omaha II V71.09 and No condition on axis III V71.09 [facility] [address] [place] [id number] [place] [address] 16747- 1601 Dec, Depression, major, recurrent, moderate 296.32 ; 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 300.02 and Omaha II diagnosis deferred 799.9 [facility] [address] [place] [id number] [place] [address] 02783- 5576 Dec, Major depressive disorder, recurrent episode, in partial or unspecified remission 296.35 and Panic disorder without agoraphobia 300.01 [facility] [address] [address]- 5944 Oct, [facility] [address] [place] [id number] [place] [address] 68984- 6714 Oct, [facility] [address] [address]- 3[address] Mar, [facility] [id number] [place] [address] 13726- 7163 Feb, [facility] [address] [address]- 0880 Feb, [facility] [address] [place] [address]- 3831 Feb, [facility] [place] [facility] [address] [id number] [place] [address]- 5275 Feb, [facility] [place] [facility] [address] [id number] [place] [address]- 6575 Feb, [facility] [place] [facility] [address] [id number] [place] [address]- 9779 Feb, [facility] [place] [facility] [address] [id number] [place] [address]- 2601 November, [facility] [place] [facility] [address] [id number] [place] [address]- 4690 November, [facility] [place] [facility] [address] [id number] [place] [address]- 5421 November, [facility] [place] [facility] [address] [id number] [place] [address]- 7755 November, [facility] [address] [id number] [place] [address]- 3590 November, [facility] [place] [facility] [address] [id number] [place] [address]- 1275 November, [facility] [address] [id number] [place] [address]- 6821 Oct, [facility] [place] [facility] [address] [id number] [place] [address]- 5429 Oct, [facility] [place] [facility] [address] [id number] [place] [address]- 2773 Sep, [facility] [place] [facility] [address] [id number] [place] [address]- 1038 Sep, [facility] [place] [facility] [address] [id number] [place] [address]- 9022 Sep, [facility] [place] [facility] [address] [id number] [place] [address]- 6484 Sep, [facility] [place] [facility] [address] [id number] [place] [address]- 1673 Sep, [facility] [place] [facility] [address] [id number] [place] [address]- 8671 Sep, [facility] [place] [facility] [address] [id number] [place] [address]- 8379 Aug, [facility] [place] [facility] [address] [id number] [place] [address]- 8144 Aug, [facility] [place] [facility] [address] [id number] [place] [address]- 7516 Aug, [facility] [place] [facility] [address] [id number] [place] [address]- 7528 Aug, [facility] [place] [facility] [address] [id number] [place] [address]- 8320 Jul, [facility] [place] [facility] [address] [id number] [place] [address]- 3797 Jul, [facility] [place] [facility] [address] [id number] [place] [address]- 2059 Jul, [facility] [place] [facility] [address] [id number] [place] [address]- 3872 Jul, [facility] [place] [facility] [address] [id number] [place] [address]- 4445 Jul, [facility] [place] [facility] [address] [id number] [address]- 3272 Jul, [facility] [place] [facility] [address] [id number] [place] [address]- 1794 Jun, [facility] [place] [facility] [address] [id number] [place] [address]- 0927 Jun, [facility] [place] [facility] [address] [id number] [place] [address]- 2998 Jun, [facility] [place] [facility] [address] [id number] [place] [address]- 5763 Jun, [facility] [place] [facility] [address] [id number] [place] [address]- 9630 May, [facility] [place] [facility] [address] [id number] [place] [address]- 9974 May, [facility] [place] [facility] [address] [id number] [place] [address]- 8865 May, [facility] [place] [facility] [address] [id number] [place] [address]- 2400 May, [facility] [place] [facility] [address] [id number] [place] [address]- 7868 Apr, [facility] [place] [facility] [address] [id number] [place] [address]- 0132 Mar, [facility] [place] [facility] [address] [id number] [place] [address] Mar, [facility] [place] [facility] [address] [id number] [place] [address]- 1083 Feb, [facility] [place] [facility] [address] [id number] [place] [address]- 7114 Feb, [facility] [place] [facility] [address] [id number] [place] [address]- 8863 Feb, [facility] [place] [facility] [address] [id number] [place] [address]- 9896 Jan, [facility] [place] [facility] [address] [id number] [place] [address]- 7082 Dec, [facility] [place] [facility] [address] [id number] [place] [address]- 0235 Dec, [facility] [place] [facility] [address] [id number] [place] [address]- 7082 Dec, [facility] [place] [facility] [address] [id number] [place] [address]- 0802 Dec, [facility] [place] [facility] [address] [id number] [place] [address]- 4433 November, [facility] [address] [id number] [place] [address]- 3848 Sep, [facility] [place] [facility] [address] [id number] [place] [address]- 6675 Aug, [facility] [place] [facility] [address] [id number] [place] [address]- 3048 Jul, [facility] [address] [id number] [place] [address]- 3374 Jul, [facility] [place] [facility] [address] [id number] [place] [address]- 5782 Jun, [facility] [address] [id number] [place] [address]- 4871 Jun, [facility] [address] [id number] [place] [address]- 6361 May, [facility] [address] [id number] [place] [address]- 4048 May, [facility] [address] [id number] [place] [address]- 8186 Aug, [facility] [address] [id number] [place] [address]- 5772 Jun, [facility] [address] [id number] [address]- 2026 May, [facility] [place] [facility] [address] [id number] [place] [address]- 4752 May, [facility] [place] [facility] [address] [id number] [place] [address]- 3983 May, [facility] [place] [facility] [address] [id number] [place] [address]- 1567 05 May, 2008 [facility] [place] [facility] [address] [id number], [place] [address]- 2546 Apr, IMMUNIZATIONS No Known Immunizations SOCIAL HISTORY Never Assessed REASON FOR VISIT f/u PLAN OF CARE Activity Details Follow Up 3 Months Reason: f/u VITAL SIGNS Height 63.75 in 2017-07-12 Weight 122.2 lbs 2017-07-12 Heart Rate 68 bpm 2017-07-12 Respiratory Rate 20 2017-07-12 BMI 21.14 kg/m2 2017-07-12 Blood pressure systolic 112 mmHg 2017-07-12 Blood pressure diastolic 62 mmHg 2017-07-12 MEDICATIONS Medication Instructions Dosage Frequency Start Date End Date Duration Status Duloxetine HCl 60 mg Orally Twice a day 1 capsule 12h November, 30 days Active Digoxin 250 mcg 1 Tablet by Oral route 2 times per day 24h Feb, Active Omeprazole 20 MG Orally Once a day 1 capsule 24h Active Rexulti 1 MG Orally Once a day 1 tablet 24h Jul, 30 days Active Colestid 1 gram 1 Tablet by Oral route 2 times per day As needed Sep Active Lovaza 1 GM Orally Twice a day 2 capsules 12h Active Vitamin D3 2000 UNIT Active Gabapentin 600 MG Orally twice a day 1 tablet 12h Oct, 30 days Active Lisinopril 5 mg Orally Once a day .5 tablet 24h Active Centrum Cardio Orally Once a day 1 tablet 24h Active Aspirin 81 mg 1 Capsule by Oral route 1 time per day Feb, Not-Taking Levothyroxine Sodium 88 MCG Orally Once a day 1 tablet 24h Active Niaspan 500 MG Orally Once a day 1 tablet at bedtime 24h Not- Taking Niacin ER 1000 MG Orally Once a day 1 tablet 24h Active Lipitor 80 MG Orally Once a day 1 tablet 24h Active Iron Complex Not-Taking Metoprolol Tartrate 25 MG Orally Twice a day 1 tablet 12h Active RESULTS No Results PROCEDURES Procedure Date Ordered Result Body Site [facility] VISIT ESTABLISHED PATIENT Jul 12, 2017 INSTRUCTIONS MEDICATIONS ADMINISTERED No Known Medications [...]
--- OUTSIDE RECORDS SUMMARY | 2018-05-13 11:32 | XMS REPORT ---
Author Author MAKENZIE SEPULVEDA Organization [employer] Address Unknown Phone Unavailable Care Team Providers Care Car Supervisor Name Role Phone MKAENZIE SEPULVEDA CP Unavailable Allergies No Known Allergies Problems Problem Type Condition Code Onset Dates Condition Status Problem Major depressive disorder, recurrent episode, in partial or unspecified remission 296.35 Active Problem Panic disorder without agoraphobia 300.01 Active Medications Medication Code System Code Instructions Start Date End Date Status Dosage Cymbalta [facility] [place] [address]-55 60 MG Orally Twice a day. Feb 25, 2014 1 capsule Results No Known Results Summary Purpose [employer] Submission
--- OUTSIDE RECORDS SUMMARY | 2018-05-13 11:33 | XMS REPORT ---
Author Author TATI MILLARD [facility] Address [address] [place] [address] Care Team Providers Care Machine Set Up Operator Paper Goods Name Role Phone TATI MILLARD Unavailable PROBLEMS Type Condition ICD9-CM Code [id number] Code Onset Dates Condition Status SNOMED Code Problem Major depressive disorder, recurrent episode, in partial or unspecified remission 296.35 Active 69240202 Problem Panic disorder without agoraphobia 300.01 Active 85928908 ALLERGIES No Information ENCOUNTERS Encounter Location Date Diagnosis [place] [id number] [place] [address] Oct, [place] [address] [address] Jun, Major depressive disorder, recurrent episode, in partial remission F33.41 and 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.1 [place] [id number] [place] [address] 86150- 4068 Feb, 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.1 [place] [id number] [place] [address] 28779- 5859 Jan, 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.1 [place] [id number] [place] [address] 02320- 8031 Jan, Major depressive disorder, recurrent episode, in partial remission F33.41 ; 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.1 and Other meterman ( current) drug therapy Z79.899 [place] [id number] [place] [address] 06669- 0487 Dec, [place] [id number] [place] [address]30- 4793 Dec, [place] [id number] [address] Dec, Major depressive disorder, recurrent episode, in partial remission F33.41 [facility] [id number] [address] November, [facility] [id number] [address] 2546 November, Major depressive disorder, recurrent episode, in partial remission F33.41 and 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.1 [facility] [id number] [address] Oct, Major depressive disorder, recurrent episode, in partial remission F33.41 and 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.1 [facility] [id number] [address] Jul, [place] [id number] [address] Jul, [facility] [id number] [address] Jul, Major depressive disorder, recurrent episode, in partial remission F33.41 ; 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.1 and Other fci ( current) drug therapy Z79.899 [facility] [id number] [address] Jun, [facility] [id number] [address] 14[address] Apr, Major depression, recurrent 296.30 and Anxiety disorder, unspecified F41.9 [facility] [id number] [address] 85[address] Feb, [facility] [id number] [address] 14[address] Jan, [facility] [id number] [address] 9[address] Dec, Major depressive disorder, recurrent, in partial remission F33.41 and Anxiety disorder, unspecified F41.9 [facility] [id number] [address] 29[address] Dec, [facility] [id number] [address] November, [facility] [id number] [address] 55[address] November, [facility] [id number] [place] [address] 790366- 9896 Oct, [facility] [id number] [address] 2512 Aug, [facility] [id number] [place] [address] 506579- 6301 Jul, [facility] [id number] [address] Jul, 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.1 ; Major depressive disorder, recurrent, moderate F33.1 and Anxiety disorder, unspecified F41.9 [facility] [id number] [address] 7468 Jun, [facility] [id number] [address] 2424 May, [facility] [id number] [address]- 7[address] May, [facility] [id number] [address] Mar, [facility] [id number] [address] Feb, Major depression, recurrent 296.30 ; Chronic post-traumatic stress disorder (PTSD) 309.81 ; Anxiety 300.00 ; No condition on [place] II V71.09 and No condition on axis III V71.09 [facility] [id number] [address] 24[address] Jan, Major depression 296.20 ; 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 300.02 ; 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 ; No condition on [place] II V71.09 and No condition on axis III V71.09 [facility] [id number] [place] [address] 44091- 6852 15 Dec, 2014 Depression, major, recurrent, moderate 296.32 ; 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 300.02 and [place] II diagnosis deferred 799.9 [facility] [id number] [place] [address] 42856- 0895 Dec, Major depressive disorder, recurrent episode, in partial or unspecified remission 296.35 and Panic disorder without agoraphobia 300.01 [facility] [id number] [place] [address] 68861- 7148 Oct, [facility] [id number] [place] [address] 83038- 0779 Oct, [facility] [id number] [place] [address] 22189- 9878 Mar, [facility] [id number] [place] [address] 54621- 1039 Feb, [facility] [id number] [place] [address] 67524- 1448 Feb, [facility] [id number] [address]- 6287 Feb, [facility] [id number] [address]- 7621 Feb, [facility] [id number] [address]- 0849 Feb, [facility] [id number] [place] [address] 05840- 4188 Feb, [facility] [id number] [address]- 6[address] November, [facility] [id number] [place] [address] 84741- 6211 November, [facility] [place] [facility] [address] [id number] [place] [address]- 9929 November, [facility] [place] [facility] [address] [id number] [place] [address] November, [facility] [place] [facility] [address] [id number] [place] [address]- 8954 November, [facility] [place] [facility] [address] [id number] [place] [address]- 1207 November, [facility] [place] [facility] [address] [id number] [place] [address]- 5084 Oct, [facility] [place] [facility] [address] [id number] [place] [address]- 8725 Oct, [facility] [place] [facility] [address] [id number] [place] [address]- 1477 Sep, [facility] [place] [facility] [address] [id number] [place] [address]- 9944 Sep, [facility] [place] [facility] [address] [id number] [place] [address]- 7293 Sep, [facility] [place] [facility] [address] [id number] [place] [address]- 3785 Sep, [facility] [place] [facility] [address] [id number] [place] [address]- 5386 Sep, [facility] [place] [facility] [address] [id number] [place] [address]- 8226 Sep, [facility] [place] [facility] [address] [id number] [place] [address]- 4716 Aug, [facility] [place] [facility] [address] [id number] [place] [address]- 9129 Aug, [facility] [place] [facility] [address] [id number] [place] [address]- 9210 Aug, [facility] [place] [facility] [address] [id number] [place] [address]- 8196 Aug, [facility] [address] [id number] [place] [address]- 1465 Jul, [facility] [place] [facility] [address] [id number] [place] [address]- 4316 Jul, [facility] [address] [id number] [place] [address]- 8586 Jul, [facility] [place] [facility] [address] [id number] [place] [address]- 9408 Jul, [facility] [address] [id number] [place] [address]- 1930 Jul, [facility] [address] [id number] [place] [address]- 3202 Jul, [facility] [address] [id number] [place] [address]- 0667 Jun, [facility] [address] [id number] [place] [address]- 1968 Jun, [facility] [place] [facility] [address] [id number] [place] [address]- 9114 Jun, [facility] [address] [id number] [place] [address]- 0703 Jun, [facility] [place] [facility] [address] [id number] [place] [address]- 1613 May, [facility] [place] [facility] [address] [id number] [place] [address]- 7289 May, [facility] [place] [facility] [address] [id number] [place] [address]- 5806 May, [facility] [place] [facility] [address] [id number] [place] [address]- 2546 May, [facility] [place] [facility] [address] [id number] [place] [address]- 0550 Apr, [facility] [address] [id number] [place] [address]- 3145 Mar, [facility] [place] [facility] [address] [id number] [place] [address]- 2433 Mar, [facility] [place] [facility] [address] [id number] [place] [address]- 5971 Feb, [facility] [place] [facility] [address] [id number] [place] [address]- 9673 Feb, [facility] [place] [facility] [address] [id number] [place] [address]- 7019 Feb, [facility] [place] [facility] [address] [id number] [place] [address]- 9979 Jan, [facility] [place] [facility] [address] [id number] [place] [address]- 2293 Dec, [facility] [place] [facility] [address] [id number] [place] [address]- 6684 Dec, [facility] [place] [facility] [address] [id number] [place] [address]- 1644 Dec, [facility] [place] [facility] [address] [id number] [place] [address]- 9955 Dec, [facility] [place] [facility] [address] [id number] [place] [address]- 8246 November, [facility] [place] [facility] [address] [id number] [place] [address]- 4076 Sep, [facility] [place] [facility] [address] [id number] [place] [address]- 2058 Aug, [facility] [place] [facility] [address] [id number] [place] [address]- 6556 Jul, [facility] [place] [facility] [address] [id number] [place] [address]- 4921 Jul, [facility] [place] [facility] [id number] [address]- 4882 Jun, [facility] [id number] [address]- 2912 Jun, [facility] [id number] [address]- 1848 May, [facility] [id number] [address]- 9353 May, [facility] [id number] [address]- 7927 Aug, [facility] [id number] [place] [address] 60901- 6965 Jun, [facility] [id number] [address]- 1348 May, [facility] [id number] [place] [address] 73212- 6938 May, [facility] [id number] [address]- 0622 17 May, 2008 [facility] [id number] [address]- 0197 05 May, 2008 [facility] [id number] [address]- 5635 Apr, IMMUNIZATIONS No Known Immunizations SOCIAL HISTORY [...]
--- OUTSIDE RECORDS SUMMARY | 2018-05-13 11:33 | XMS REPORT ---
Author Author MAKENZIE Delatorre Organization [facility] [place] Address [address] [place] [address] Care Team Providers Care Medical Collections Representative Name Role Phone MAKENZIE Delatorre Unavailable PROBLEMS Type Condition ICD9-CM Code [id number] Code Onset Dates Condition Status SNOMED Code Problem Major depressive disorder, recurrent episode, in partial or unspecified remission 296.35 Active 84815153 Problem Panic disorder without agoraphobia 300.01 Active 39520964 ALLERGIES No Information SOCIAL HISTORY Never Assessed PLAN OF CARE VITAL SIGNS MEDICATIONS Medication [...]
--- OUTSIDE RECORDS SUMMARY | 2018-05-13 11:33 | XMS REPORT ---
Author Author Nandini MAKENZIE Organization [facility] Address [address] [place] [address] Care Team Providers Care Laborer Cook House Name Role Phone MAKENZIE Delatorre Unavailable PROBLEMS Type Condition ICD9-CM Code MTI63-EB Code Onset Dates Condition Status SNOMED Code Problem Major depressive disorder, recurrent episode, in partial or unspecified remission 296.35 Active 35461210 Problem Panic disorder without agoraphobia 300.01 Active 17092379 ALLERGIES Substance Reaction Event Type Date Status Codeine Sulfate hives Drug Allergy Jul, Active Cefadroxil Fainting Drug Allergy Jul, Active SOCIAL HISTORY No smoking Hx information available PLAN OF CARE Activity Details Follow Up 3 Months Reason: VITAL SIGNS Height 63.75 in 2016-07-26 Weight 140.8 lbs 2016-07-26 Heart Rate 68 bpm 2016-07-26 Respiratory Rate 18 2016-07-26 BMI 24.36 kg/m2 2016-07-26 Blood pressure systolic 122 mmHg 2016-07-26 Blood pressure diastolic 58 mmHg 2016-07-26 MEDICATIONS Medication Instructions Dosage Frequency Start Date End Date Duration Status Rexulti 0.5 MG Orally Once a day 1 tablet 24h Jul, Active Iron Complex Active Niaspan 500 MG Orally Once a day 1 tablet at bedtime 24h Active Gabapentin 300MG Orally daily TAKE 3 CAPSULE in am and 1caps at HS 24h Active Colestid 1 gram 1 Tablet by Oral route 2 times per day As needed Sep Active Lipitor 10 MG Orally Once a day 1 tablet 24h Active Vitamin D3 2000 UNIT Active Aspirin 81 mg 1 Capsule by Oral route 1 time per day Feb, Active Levothyroxine Sodium 100 MCG Orally Once a day 1 tablet 24h Active Digoxin 250 mcg 1 Tablet by Oral route 2 times per day Feb, Active Lisinopril 5 mg Orally Once a day .5 tablet 24h Active Metoprolol Tartrate 25 MG Orally Twice a day 1 tablet 12h Active Cymbalta 60 MG Orally Twice a day. 1 capsule Feb, Active Centrum Cardio Orally Once a day 1 tablet 24h Active Lovaza 1 GM Orally Twice a day 2 capsules 12h Active RESULTS No Results PROCEDURES Procedure Date Ordered Related Diagnosis Body Site [facility] VISIT ESTABLISHED PATIENT Jul 26, 2016 Office Visit, Est Pt., Level 3 Jul 26, 2016 IMMUNIZATIONS No Known Immunizations
--- OUTSIDE RECORDS SUMMARY | 2018-05-13 11:33 | XMS REPORT ---
Author Author DAVID ALAN Organization [employer] Address Unknown Phone Unavailable Care Team Providers Care Recovery Operator Helper Name Role Phone DAVID ALAN Unavailable Allergies No Known Allergies Problems Problem Type Condition Code Onset Dates Condition Status Problem Major depressive disorder, recurrent episode, in partial or unspecified remission 296.35 Active Problem Panic disorder without agoraphobia 300.01 Active Medications Medication Code System Code Instructions Start Date End Date Status Dosage Rexulti [facility] [address]-50 0.5 MG Orally Once a day Jul 26, 2015 1 tablet Results No Known Results Summary Purpose [employer] Submission
--- OUTSIDE RECORDS SUMMARY | 2018-05-13 11:33 | XMS REPORT ---
Author Author JOÃO LEONARD [facility] [employer] Address Unknown Phone Unavailable Care Team Providers Care Scallop Dredger Name Role Phone JOÃO LEONARD Unavailable Allergies, Adverse Reactions, Alerts Substance Reaction Event Type Codeine Sulfate hives Drug Allergy Cefadroxil Fainting Drug Allergy Problems Problem Type Condition Code Onset Dates Condition Status Problem Major depressive disorder, recurrent episode, in partial or unspecified remission 296.35 Active Assessment 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.1 Active Problem Panic disorder without agoraphobia 300.01 Active Assessment Major depressive disorder, recurrent, moderate F33.1 Active Assessment Anxiety disorder, unspecified F41.9 Active Medications Medication Code System Code Instructions Start Date End Date Status Dosage Metoprolol Tartrate [facility] [facility] [address]-56 25 MG Orally Twice a day 1 tablet Cymbalta [facility] [place] 2] [address]-32 60 MG Orally Twice a day. Feb 25, 2014 1 capsule Niaspan [facility] [place] 2] [address]-10 500 MG Orally Once a day 1 tablet at bedtime Lipitor [facility] [place] 2] [address]-82 10 MG Orally Once a day 1 tablet Colestid [facility] [place] 2] [address]-90 1 gram September 19, 2012 1 Tablet by Oral route 2 times per day As needed Gabapentin [facility] [place]NOTE 2] 36461265695 300MG Three times a day 1capsule Lovaza [facility] [place]NOTE 2] [address]-05 1 GM Orally Twice a day 2 capsules Centrum Cardio [facility] [place]NOTE 2] [address]-92 Orally Once a day 1 tablet Iron Complex [facility] [place] 2] 86[address]-92344 Orally not defined Digoxin [facility] [place] 2] [address]-51 250 mcg Feb 25, 2014 1 Tablet by Oral route 2 times per day Dicyclomine HCl [facility] [place] 2] [address]-12 20 MG Orally Four times a day PRN IBS symptoms 1 tablet Rexulti [facility] [place] 2] [address]-71 0.5 MG Orally Once a day Jul 26, 2015 1 tablet Aspirin [facility] [place]NOTE 2] 16309-76587 81 mg Feb 25, 2014 1 Capsule by Oral route 1 time per day Vitamin D3 [facility] [place]NOTE 2] [address]-99 2000 UNIT Orally not defined Levothyroxine Sodium [facility] [place]NOTE 2] [address]-40 100 MCG Orally Once a day 1 tablet Procedures Procedure Coding System Code Date Office Visit, Est Pt., Level 3 CPT-4 47631 Jul 26, 2015 [facility] VISIT ESTABLISHED PATIENT CPT-4 G0467 Jul 26, 2015 Vital Signs Date/Time: Jul 26, 2015 Blood Pressure Systolic 122 mmHg Weight 140.9 lbs Height 63.75 in BMI 24.37 Index Blood Pressure Diastolic 62 mmHg Results No Known Results Summary Purpose [employer] Submission
--- OUTSIDE RECORDS SUMMARY | 2018-05-13 11:33 | XMS REPORT ---
Author Author JOÃO LEONARD [facility] [employer] Address Unknown Phone Unavailable Care Team Providers Care Stopper Maker Helper Name Role Phone JOÃO LEONARD Unavailable Allergies No Known Allergies Problems Problem Type Condition Code Onset Dates Condition Status Problem Major depressive disorder, recurrent episode, in partial or unspecified remission 296.35 Active Problem Panic disorder without agoraphobia 300.01 Active Medications Medication Code System Code Instructions Start Date End Date Status Dosage Cymbalta [facility] [address]-92 60 MG Orally Twice a day. Feb 25, 2014 1 capsule Results No Known Results Summary Purpose [employer] Submission
--- OUTSIDE RECORDS SUMMARY | 2018-05-13 11:33 | XMS REPORT ---
Author Author MAKEZNIE Delatorre [facility] Address [address] [place] [address] Care Team Providers Care Wort Extractor Name Role Phone MAKENZIE Delatorre Unavailable PROBLEMS Type Condition ICD9-CM Code PBS24-TY Code Onset Dates Condition Status SNOMED Code Problem Major depressive disorder, recurrent episode, in partial or unspecified remission 296.35 Active 08488718 Problem Panic disorder without agoraphobia 300.01 Active 07101977 ALLERGIES Unknown Allergies SOCIAL HISTORY No smoking Hx information available PLAN OF CARE VITAL SIGNS MEDICATIONS Unknown Medications RESULTS No Results PROCEDURES No Known procedures IMMUNIZATIONS No Known Immunizations
--- OUTSIDE RECORDS SUMMARY | 2018-05-13 11:34 | XMS REPORT ---
Author Author MARLEE GILLIS [facility] Address [address] [place] [address] Care Team Providers Care Manager Mobility Name Role Phone MARLEE GILLIS Unavailable PROBLEMS Type Condition ICD9-CM Code ATH91-FD Code Onset Dates Condition Status SNOMED Code Problem Major depressive disorder, recurrent episode, in partial or unspecified remission 296.35 Active 94377862 Problem Panic disorder without agoraphobia 300.01 Active [id number] ALLERGIES No Information ENCOUNTERS Encounter Location Date Diagnosis [place] [id number] [place] [address]- [address] Oct, [place] [address] [address] Jun, Major depressive disorder, recurrent episode, in partial remission F33.41 and 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.1 [place] [address] [address]- [address] Feb, 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.1 [place] [id number] [place] [address]32- 2490 Jan, 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.1 [place] [address] [address]- [address] Jan, Major depressive disorder, recurrent episode, in partial remission F33.41 ; 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.1 and 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 [place] [id number] [place] [address]34- 2475 Dec, [place] [id number] [place] [address] 14853- 4072 Dec, [place] [address] [place] [address] Dec, Major depressive disorder, recurrent episode, in partial remission F33.41 [facility] [address] [address] November, [facility] [address] [address] November, Major depressive disorder, recurrent episode, in partial remission F33.41 and 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.1 [facility] [id number] [address] Oct, Major depressive disorder, recurrent episode, in partial remission F33.41 and 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.1 [facility] [address] [address] Jul, [place] [id number] [place] [address] 04370- 8061 Jul, [facility] [id number] [address] Jul, Major depressive disorder, recurrent episode, in partial remission F33.41 ; 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.1 and Other correction ( current) drug therapy Z79.899 [facility] [address] [address] Jun, [facility] [address] [address] Apr, Major depression, recurrent 296.30 and Anxiety disorder, unspecified F41.9 [facility] [address], [place] [address] Feb, [facility] [id number] [address] 1996 Jan, [facility] [id number] [address] Dec, Major depressive disorder, recurrent, in partial remission F33.41 and Anxiety disorder, unspecified F41.9 [facility] [address], [place] [address] 0[address] Dec, [facility] [address] [address] 0156 November, [facility] [address] [address] November, [facility] [address] [address] Oct, [facility] [address] [address] Aug, [facility] [id number] [place] [address] 038230- 9657 Jul, [facility] [address] [address] 9[address] Jul, 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.1 ; Major depressive disorder, recurrent, moderate F33.1 and Anxiety disorder, unspecified F41.9 [facility] [address], [place] [address]- 2534 Jun, [facility] [address] [address]- 9659 May, [facility] [address] [address]- 3381 May, [facility] [address], [place] [address]- 04[address] Mar, [facility] [id number] [address] [address] Feb, Major depression, recurrent 296.30 ; Chronic post-traumatic stress disorder (PTSD) 309.81 ; Anxiety 300.00 ; No condition on [place] II V71.09 and No condition on axis III V71.09 [facility] [id number] [address] 22 Joel, 2015 Major depression 296.20 ; 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 300.02 ; 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 ; No condition on [place] II V71.09 and No condition on axis III V71.09 [facility] [id number] [place] [address] 41203- 8744 15 Dec, 2014 Depression, major, recurrent, moderate 296.32 ; 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 300.02 and [place] II diagnosis deferred 799.9 [facility] [id number] [place] [address] 86085- 2951 02 Dec, 2014 Major depressive disorder, recurrent episode, in partial or unspecified remission 296.35 and Panic disorder without agoraphobia 300.01 [facility] [id number] [place] [address] 73989- 7904 Oct, [facility] [id number] [place] [address] 35074- 1255 Oct, [facility] [id number] [place] [address] 58520- 0020 Mar, [facility] [id number] [address]- 8[address] Feb, [facility] [id number] [address]- 2382 Feb, [facility] [address], [place] [address]- 8660 Feb, [facility] [address] [address]- 0787 Feb, [facility] [address], [place] [address]- 4947 Feb, [facility] [id number] [address] [address]60 Feb, [facility] [address] [address] November, [facility] [id number] [place] [address] 65411- 3124 November, [facility] [place] [facility] [address] [id number] [place] [address]- 6626 November, [facility] [place] [facility] [address] [id number] [place] [address]- 5476 November, [facility] [place] [facility] [address] [id number] [place] [address]- 4773 November, [facility] [place] [facility] [address] [id number] [place] [address]- 6002 November, [facility] [place] [facility] [address] [id number] [place] [address]- 5056 Oct, [facility] [place] [facility] [address] [id number] [place] [address]- 2284 Oct, [facility] [place] [facility] [address] [id number] [place] [address]- 0636 Sep, [facility] [place] [facility] [address] [id number] [place] [address]- 2451 Sep, [facility] [place] [facility] [address] [id number] [place] [address]- 4282 Sep, [facility] [place] [facility] [address] [id number] [place] [address]- 6916 Sep, [facility] [place] [facility] [address] [id number] [place] [address]- 3783 Sep, [facility] [place] [facility] [address] [id number] [place] [address]- 6796 Sep, [facility] [place] [facility] [address] [id number] [place] [address]- 0817 Aug, [facility] [place] [facility] [address] [id number] [place] [address]- 6502 Aug, [facility] [place] [facility] [address] [id number] [place] [address]- 1313 Aug, [facility] [place] [facility] [address] [id number] [place] [address]- 6269 Aug, [facility] [address] [id number] [place] [address]- 3205 Jul, [facility] [address] [id number] [place] [address]- 4416 Jul, [facility] [address] [id number] [place] [address]- 4781 Jul, [facility] [address] [id number] [place] [address]- 9298 Jul, [facility] [address] [id number] [place] [address]- 3786 Jul, [facility] [address] [id number] [place] [address]- 9262 Jul, [facility] [address] [id number] [place] [address]- 4383 Jun, [facility] [address] [id number] [place] [address]- 1319 Jun, [facility] [address] [id number] [place] [address]- 5584 Jun, [facility] [address] [facility] [id number] [place] [address]- 1444 Jun, [facility] [place] [facility] [address] [id number] [place] [address]- 8135 May, [facility] [place] [facility] [address] [id number] [place] [address]- 4650 May, [facility] [place] [facility] [address] [id number] [place] [address]- 0090 May, [facility] [place] [facility] [address] [id number] [place] [address]- 6396 May, [facility] [place] [facility] [address] [id number] [place] [address]- 0672 Apr, [facility] [place] [facility] [address] [id number] [place] [address]- 4136 20 Mar, 2013 [facility] [place] [facility] [address] [id number] [place] [address]- 7460 Mar, [facility] [place] [facility] [address] [id number] [place] [address]- 0450 Feb, [facility] [place] [facility] [address] [id number] [place] [address]- 3752 Feb, [facility] [place] [facility] [address] [id number] [place] [address]- 4522 Feb, [facility] [place] [facility] [address] [id number] [place] [address]- 3751 Jan, [facility] [place] [facility] [address] [id number] [place] [address]- 7863 Dec, [facility] [place] [facility] [address] [id number] [place] [address]- 8764 Dec, [facility] [place] [facility] [address] [id number] [place] [address]- 7390 Dec, [facility] [place] [facility] [address] [id number] [place] [address]- 2076 Dec, [facility] [place] [facility] [address] [id number] [place] [address] 2544 November, [facility] [place] [facility] [address] [id number], [place] [address]- 2549 Sep, [facility] [place] [facility] [address] [id number] [place] [address]- 5971 Aug, [facility] [place] [facility] [address] [id number] [place] [address]- 9606 Jul, [facility] [place] [facility] [address] [id number] [address]- 8078 Jul, [facility] [place] [facility] [address] [id number], [place] [address]- 5845 Jun, [facility] [id number] [address]- 9119 Jun, [facility] [address], [place] [address]- 3909 May, [facility] [address] [address]- 2855 May, [facility] [address] [address]- 1260 Aug, [facility] [id number] [place] [address] 62023- 8169 Jun, [facility] [address], [place] [address]- 1438 May, [facility] [id number] [place] [address] 92699- 9307 May, [facility] [address], [place] [address]- 0313 17 May, 2008 [facility] [address], [place] [address]- 4087 05 May, 2008 [facility] [id number], [place] [address]- 5399 15 Apr, 2008 IMMUNIZATIONS No Known Immunizations SOCIAL HISTORY Never Assessed REASON FOR VISIT Refill request PLAN OF CARE VITAL SIGNS MEDICATIONS Unknown [...]
--- OUTSIDE RECORDS SUMMARY | 2018-05-13 11:34 | XMS REPORT ---
Author Author JOÃO LEONARD [facility] eClinicalWorks Address Unknown Phone Unavailable Care Team Providers Care Instrument Man Name Role Phone JOÃO LEONARD Unavailable Allergies No Known Allergies Problems Problem Type Condition Code Onset Dates Condition Status Problem Major depressive disorder, recurrent episode, in partial or unspecified remission 296.35 Active Problem Panic disorder without agoraphobia 300.01 Active Medications No Known Medications Results No Known Results Summary Purpose eClinicalWorks Submission
--- OUTSIDE RECORDS SUMMARY | 2018-05-13 11:34 | XMS REPORT ---
Author Author TATI MILLARD Organization [facility] Address [address] [place] [address] Care Team Providers Care Clinical Biochemist Name Role Phone TATI MILLARD Unavailable PROBLEMS Type Condition ICD9-CM Code [id number] Code Onset Dates Condition Status SNOMED Code Problem Major depressive disorder, recurrent episode, in partial or unspecified remission 296.35 Active 69843290 Problem Panic disorder without agoraphobia 300.01 Active 70543307 ALLERGIES Substance Reaction Event Type Date Status Codeine Sulfate hives Drug Allergy Jan, Active Cefadroxil Fainting Drug Allergy Jan, Active ENCOUNTERS Encounter Location Date Diagnosis [place] [id number] [place] [address]26- 4498 Oct, [place] [address] [place] [id number] [place] [address] 98847- 0509 Jun, Major depressive disorder, recurrent episode, in partial remission F33.41 and 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.1 [place] [address] [address] Feb, 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.1 [place] [address] [address] Jan, 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.1 [place] [address], [place] [address] Jan, Major depressive disorder, recurrent episode, in partial remission F33.41 ; 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.1 and Other long term care social worker ( current) drug therapy Z79.899 [place] [address], [place] [address] Dec, [place] [address] [place] [id number] [address] Dec, [facility] [address], [place] [address] 84[address] Dec, Major depressive disorder, recurrent episode, in partial remission F33.41 [facility] [address], [place] [address] 0[address] November, [facility] [address] [place] [id number] [place] [address] 46255- 1436 November, Major depressive disorder, recurrent episode, in partial remission F33.41 and 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.1 [facility] [address] [place] [id number] [place] [address] 71029- 2400 Oct, Major depressive disorder, recurrent episode, in partial remission F33.41 and 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.1 [place] [address] [place] [address] 59254- 6647 Jul, [facility] [address] [place] [id number] [place] [address] 99570- 2843 Jul, [facility] [address] [place] [address] 54589- 9079 Jul, Major depressive disorder, recurrent episode, in partial remission F33.41 ; 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.1 and Other senior care ( current) drug therapy Z79.899 [facility] [address], [place] [address] 00[address] Jun, [facility] [address] [place] [address] 00355- 3277 Apr, Major depression, recurrent 296.30 and Anxiety disorder, unspecified F41.9 [facility] [address] [place] [address] 33824- 4236 Feb, [facility] [address], [place] [address] 3537 Jan, [facility] [address] [place] [id number] [place] [address] 65922- 8532 Dec, Major depressive disorder, recurrent, in partial remission F33.41 and Anxiety disorder, unspecified F41.9 [facility] [address] [place] [id number] [place] [address] 71819- 2366 Dec, [facility] [address], [place] [address] 3141 November, [facility] [address] [place] [id number] [place] [address] [id number]- 9783 November, [facility] [address] [place] [address] 353250- 1294 Oct, [facility] [address] [place] [id number] [place] [address] 363353- 7176 Aug, [facility] [address] [place] [id number] [place] [address] 82540- 3211 Jul, [facility] [address] [place] [id number] [place] [address] 41198- 7624 Jul, 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.1 ; Major depressive disorder, recurrent, moderate F33.1 and Anxiety disorder, unspecified F41.9 [facility] [address], [place] [address]- 4731 Jun, [facility] [address], [place] [address]- 2304 May, [facility] [address] [place] [id number] [place] [address] 79019- 5979 May, [facility] [address] [place] [address] 407952- 2568 Mar, [facility] [address] [place] [id number] [place] [address] 07127- 6846 Feb, Major depression, recurrent 296.30 ; Chronic post-traumatic stress disorder (PTSD) 309.81 ; Anxiety 300.00 ; No condition on [place] II V71.09 and No condition on axis III V71.09 [place] [address], [place] [address] 22 Jan, 2015 Major depression 296.20 ; 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 300.02 ; 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 ; No condition on [place] II V71.09 and No condition on axis III V71.09 [facility] [address], [place] [address]- 94[address] 15 Dec, 2014 Depression, major, recurrent, moderate 296.32 ; 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 300.02 and [place] II diagnosis deferred 799.9 [facility] [address] [place] [id number] [place] [address] 25433- 2772 02 Dec, 2014 Major depressive disorder, recurrent episode, in partial or unspecified remission 296.35 and Panic disorder without agoraphobia 300.01 [facility] [address], [place] [address]- 1678 14 Oct, 2014 [facility] [address] [place] [id number] [place] [address] 68051- 2665 Oct, [facility] [address], [place] [address]- 2019 Mar, [facility] [address] [place] [id number] [address]- 7655 Feb, [facility] [address], [place] [address]- 4303 Feb, [facility] [address], [place] [address]- 4609 Feb, [facility] [address], [place] [address]- 1594 Feb, [facility] [address], [place] [address]- 9853 Feb, [facility] [address], [place] [address]- 6476 Feb, [facility] [address], [place] [address]- 2128 November, [facility] [place] [facility] [address] [id number] [place] [address]- 0522 November, [facility] [place] [facility] [address] [id number] [place] [address]- 9197 November, [facility] [place] [facility] [address] [id number] [place] [address]- 3803 November, [facility] [place] [facility] [address] [id number] [place] [address]- 2341 November, [facility] [place] [facility] [address] [id number] [place] [address]- 3611 November, [facility] [place] [facility] [address] [id number] [place] [address]- 5621 Oct, [facility] [place] [facility] [address] [id number] [place] [address]- 0561 Oct, [facility] [place] [facility] [address] [id number] [place] [address]- 0394 Sep, [facility] [place] [facility] [address] [id number] [place] [address]- 0586 Sep, [facility] [place] [facility] [address] [id number] [place] [address]- 2395 Sep, [facility] [place] [facility] [address] [id number] [place] [address]- 4831 Sep, [facility] [place] [facility] [address] [id number] [place] [address]- 3502 Sep, [facility] [place] [facility] [address] [id number] [place] [address]- 3427 Sep, [facility] [place] [facility] [address] [id number] [place] [address]- 8905 Aug, [facility] [place] [facility] [address] [id number] [place] [address]- 0388 Aug, [facility] [place] [facility] [address] [id number] [place] [address]- 9471 Aug, [facility] [address] [id number] [place] [address]- 5206 Aug, [facility] [address] [id number] [place] [address] Jul, [facility] [address] [id number] [place] [address]- 5796 Jul, [facility] [address] [id number] [place] [address]- 1033 Jul, [facility] [address] [id number] [place] [address]- 6497 Jul, [facility] [address] [id number] [place] [address]- 1173 Jul, [facility] [address] [id number] [place] [address]- 0014 Jul, [facility] [address] [id number] [place] [address]- 0158 Jun, [facility] [address] [id number] [place] [address]- 6109 Jun, [facility] [address] [id number] [place] [address]- 2715 Jun, [facility] [address] [id number] [place] [address]- 5806 Jun, [facility] [address] [id number] [place] [address]- 6599 May, [facility] [place] [facility] [address] [id number] [place] [address]- 6392 May, [facility] [place] [facility] [address] [id number] [place] [address]- 9856 May, [facility] [address] [id number] [place] [address]- 2726 May, [facility] [place] [facility] [address] [id number] [place] [address]- 6198 Apr, [facility] [place] [facility] [address] [id number] [place] [address]- 9966 Mar, [facility] [place] [facility] [address] [id number] [place] [address]- 9185 Mar, [facility] [place] [facility] [address] [id number] [place] [address] 2541 Feb, [facility] [place] [facility] [address] [id number] [place] [address]- 4341 Feb, [facility] [place] [facility] [address] [id number] [place] [address]- 4902 Feb, [facility] [place] [facility] [address] [id number] [place] [address]- 2455 Jan, [facility] [place] [facility] [address] [id number] [place] [address]- 9756 Dec, [facility] [place] [facility] [address] [id number] [place] [address]- 0549 Dec, [facility] [place] [facility] [address] [id number] [place] [address]- 6897 Dec, [facility] [place] [facility] [address] [id number] [place] [address]- 7804 Dec, [facility] [place] [facility] [address] [id number], [place] [address]- 2546 November, [facility] [place] [facility] [address] [id number] [place] [address]- 2543 Sep, [facility] [place] [facility] [address] [id number] [place] [address]- 1466 Aug, [facility] [place] [facility] [address] [id number], [place] [address]- 2546 Jul, [facility] [place] [facility] [address] [id number], [place] [address]- 9279 Jul, [facility] [address], [place] [address]- 6819 Jun, [facility] [address] [place] [address] 58101- 3404 Jun, [facility] [address] [id number] [place] [address]- 4158 May, [facility] [address] [place] [id number] [place] [address] 28281- 2527 May, [facility] [address] [place] [id number] [place] [address] 80140- 5664 Aug, [facility] [address] [place] [id number] [place] [address] 63055- 7546 Jun, [facility] [address] [place] [id number] [place] [address] 63115- 0097 May, [facility] [address] [place] [id number] [place] [address] 93746- 6247 May, [facility] [address] [place] [id number] [place] [address] 96259- 1403 May, [facility] [address], [place] [address]- 6594 May, [facility] [address], [place] [address]- 8785 Apr, IMMUNIZATIONS No Known Immunizations SOCIAL HISTORY Never Assessed REASON FOR VISIT intake -- previous patient of Luis Solo PLAN OF CARE Activity Details Follow Up 2 Months Reason: f/u VITAL SIGNS Height 63.75 in 2017-01-31 Weight 125.7 lbs 2017-01-31 Heart Rate 64 bpm 2017-01-31 Respiratory Rate 18 2017-01-31 BMI 21.74 kg/m2 2017-01-31 Blood pressure systolic 102 mmHg 2017-01-31 Blood pressure diastolic 68 mmHg 2017-01-31 MEDICATIONS Medication Instructions Dosage Frequency Start Date End Date Duration Status Lipitor 80 MG Orally Once a day 1 tablet 24h Active Digoxin 250 mcg 1 Tablet by Oral route 2 times per day 24h 07 Feb, 2014 Active Omeprazole 20 MG Orally Once a day 1 capsule 24h Active Lovaza 1 GM Orally Twice a day 2 capsules 12h Active Rexulti 1 MG Orally Once a day 1 tablet 24h Jul, Active Centrum Cardio Orally Once a day 1 tablet 24h Active Gabapentin 600 MG Orally twice a day 1 tablet 12h Oct, Active Duloxetine HCl 60 MG Orally Twice a day 1 capsule 12h November, Active Colestid 1 gram 1 Tablet by Oral route 2 times per day As needed Sep Active Niacin ER 1000 MG Orally Once a day 1 tablet 24h Active Levothyroxine Sodium 88 MCG Orally Once a day 1 tablet 24h Active Vitamin D3 2000 UNIT Active Lisinopril 5 mg Orally Once a day .5 tablet 24h Active Metoprolol Tartrate 25 MG Orally Twice a day 1 tablet 12h Active RESULTS No Results PROCEDURES Procedure Date Ordered Result Body Site [facility] VISIT ESTABLISHED PATIENT January 31, 2017 INSTRUCTIONS MEDICATIONS ADMINISTERED No Known Medications [...]
--- OUTSIDE RECORDS SUMMARY | 2018-05-13 11:37 | XMS REPORT | Continuity of Care Document ---
Author Author Count Includes [facility] Address Unknown Phone Unavailable Allergies Active Description Code Type Severity Reaction Onset Reported/Identified Relationship to Patient Clinical Status Yes cefadroxil [id number] Drug Allergy Unknown N/A 04/16/2008 Yes codeine [id number] Drug Allergy Unknown N/A 04/16/2008 Yes olanzapine [id number] Drug Allergy Unknown N/A 08/03/2008 Yes codeine Drug Allergy 02/16/2011 Yes codeine Drug Allergy N/A N/A 02/16/2011 Yes Cefadroxil Drug Allergy N/A N/A 08/20/2013 Medications There is no data. Problems Date Dx Coded Attending Type Code Diagnosis Diagnosed By 05/05/2008 296.30 MAJOR DEPRESSIVE AFFECTIVE DISORDER RECURRENT EPISODE UNSPECIFIED DEGREE 05/05/2008 300.21 AN PANIC DIS W AGORA 05/05/2008 307.47 SI DYSSOMNIA NOS 05/05/2008 316 PF PSYCHIC FACTORS MED COND 05/05/2008 296.30 MAJOR DEPRESSIVE AFFECTIVE DISORDER RECURRENT EPISODE UNSPECIFIED DEGREE 05/05/2008 300.21 AN PANIC DIS W AGORA 05/05/2008 307.47 SI DYSSOMNIA NOS 05/05/2008 316 PF PSYCHIC FACTORS MED COND 05/05/2008 SOLEDAD MAYER DO 296.30 MAJOR DEPRESSIVE AFFECTIVE DISORDER RECURRENT EPISODE UNSPECIFIED DEGREE 05/05/2008 SOLEDAD MAYER DO 300.21 AN PANIC DIS W AGORA 05/05/2008 SOLEDAD MAYER DO 307.47 SI DYSSOMNIA NOS 05/05/2008 SOLEDAD MAYER DO 316 PF PSYCHIC FACTORS MED COND 05/05/2008 SOLEDAD MAYER DO 296.30 MAJOR DEPRESSIVE AFFECTIVE DISORDER RECURRENT EPISODE UNSPECIFIED DEGREE 05/05/2008 SOLEDAD MAYER DO 300.21 AN PANIC DIS W AGORA 05/05/2008 SOLEDAD MAYER DO 307.47 SI DYSSOMNIA NOS 05/05/2008 SOLEDAD MAYER DO 316 PF PSYCHIC FACTORS MED COND 05/05/2008 296.30 MAJOR DEPRESSIVE AFFECTIVE DISORDER RECURRENT EPISODE UNSPECIFIED DEGREE 05/05/2008 300.21 AN PANIC DIS W AGORA 05/05/2008 307.47 SI DYSSOMNIA NOS 05/05/2008 316 PF PSYCHIC FACTORS MED COND 05/05/2008 296.30 MAJOR DEPRESSIVE AFFECTIVE DISORDER RECURRENT EPISODE UNSPECIFIED DEGREE 05/05/2008 300.21 AN PANIC DIS W AGORA 05/05/2008 307.47 SI DYSSOMNIA NOS 05/05/2008 316 PF PSYCHIC FACTORS MED COND 05/05/2008 296.30 MAJOR DEPRESSIVE AFFECTIVE DISORDER RECURRENT EPISODE UNSPECIFIED DEGREE 05/05/2008 300.21 AN PANIC DIS W AGORA 05/05/2008 307.47 SI DYSSOMNIA NOS 05/05/2008 316 PF PSYCHIC FACTORS MED COND 05/05/2008 ALCIDES SEPULVEDA PHD 296.30 MAJOR DEPRESSIVE AFFECTIVE DISORDER RECURRENT EPISODE UNSPECIFIED DEGREE 05/05/2008 ALCIDES SEPULVDEA PHD 300.21 AN PANIC DIS W AGORA 05/05/2008 ALCIDES SEPULVEDA PHD 307.47 SI DYSSOMNIA NOS 05/05/2008 ALCIDES SEPULVEDA PHD 316 PF PSYCHIC FACTORS MED COND 05/05/2008 ALCIDES SEPULVEDA PHD 296.30 MAJOR DEPRESSIVE AFFECTIVE DISORDER RECURRENT EPISODE UNSPECIFIED DEGREE 05/05/2008 ALCIDES SEPULVEDA PHD 300.21 AN PANIC DIS W AGORA 05/05/2008 ALCIDES SEPULVEDA PHD 307.47 SI DYSSOMNIA NOS 05/05/2008 ALCIDES SEPULVEDA PHD 316 PF PSYCHIC FACTORS MED COND 05/05/2008 DAVID ALAN MD 296.30 MAJOR DEPRESSIVE AFFECTIVE DISORDER RECURRENT EPISODE UNSPECIFIED DEGREE 05/05/2008 DAVID ALAN MD 300.21 AN PANIC DIS W AGORA 05/05/2008 DAVID ALAN MD 307.47 SI DYSSOMNIA NOS 05/05/2008 DAVID ALAN MD 316 PF PSYCHIC FACTORS MED COND 05/05/2008 ALCIDES SEPULVEDA PHD 296.30 MAJOR DEPRESSIVE AFFECTIVE DISORDER RECURRENT EPISODE UNSPECIFIED DEGREE 05/05/2008 ALCIDES SEPULVEDA PHD 300.21 AN PANIC DIS W AGORA 05/05/2008 ALCIDES SEPULVEDA PHD 307.47 SI DYSSOMNIA NOS 05/05/2008 ALCIDES SEPULVEDA PHD 316 PF PSYCHIC FACTORS MED COND 05/05/2008 ALCIDES SEPULVEDA PHD 296.30 MAJOR DEPRESSIVE AFFECTIVE DISORDER RECURRENT EPISODE UNSPECIFIED DEGREE 05/05/2008 ALCIDES SEPULVEDA PHD 300.21 AN PANIC DIS W AGORA 05/05/2008 ALCIDES SEPULVEDA PHD 307.47 SI DYSSOMNIA NOS 05/05/2008 ALCIDES SEPULVEDA PHD 316 PF PSYCHIC FACTORS MED COND 05/05/2008 ALCIDES SEPULVEDA PHD 296.30 MAJOR DEPRESSIVE AFFECTIVE DISORDER RECURRENT EPISODE UNSPECIFIED DEGREE 05/05/2008 ALCIDES SEPULVEDA PHD 300.21 AN PANIC DIS W [place]ORA 05/05/2008 ALCIDES SEPULVEDA PHD 307.47 SI DYSSOMNIA NOS 05/05/2008 ALCIDES SEPULVEDA PHD 316 PF PSYCHIC FACTORS MED COND 05/05/2008 ALCIDES SEPULVEDA PHD 296.30 MAJOR DEPRESSIVE AFFECTIVE DISORDER RECURRENT EPISODE UNSPECIFIED DEGREE 05/05/2008 ALCIDES SEPULVEDA PHD 300.21 AN PANIC DIS W [place] 05/05/2008 ALCIDES SEPULVEDA PHD 307.47 SI DYSSOMNIA NOS 05/05/2008 ALCIDES SEPULVEDA PHD 316 PF PSYCHIC FACTORS MED COND 05/05/2008 DAVID ALAN MD 296.30 MAJOR DEPRESSIVE AFFECTIVE DISORDER RECURRENT EPISODE UNSPECIFIED DEGREE 05/05/2008 DAVID ALAN MD 300.21 AN PANIC DIS W [place] 05/05/2008 DAVID ALAN MD 307.47 SI DYSSOMNIA NOS 05/05/2008 DAVID ALAN MD 316 PF PSYCHIC FACTORS MED COND 05/05/2008 JENNIFER MAIL TRUCK DRIVER, CODY 296.30 MAJOR DEPRESSIVE AFFECTIVE DISORDER RECURRENT EPISODE UNSPECIFIED DEGREE 05/05/2008 JENNIFER MAIL TRUCK DRIVER, CODY 300.21 AN PANIC DIS W [place]OR[place] 05/05/2008 JENNIFER MAIL TRUCK DRIVER, CODY 307.47 SI DYSSOMNIA NOS 05/05/2008 JENNIFER MAIL TRUCK DRIVER, CODY 316 PF PSYCHIC FACTORS MED COND 05/05/2008 JENNIFER MAIL TRUCK DRIVER, CODY 296.30 MAJOR DEPRESSIVE AFFECTIVE DISORDER RECURRENT EPISODE UNSPECIFIED DEGREE 05/05/2008 JENNIFER MAIL TRUCK DRIVER, CODY 300.21 AN PANIC DIS W [place] 05/05/2008 JENNIFER MAIL TRUCK DRIVER, CODY 307.47 SI DYSSOMNIA NOS 05/05/2008 JENNIFER MAIL TRUCK DRIVER, CODY 316 PF PSYCHIC FACTORS MED COND 05/26/2008 296.32 MAJOR DEPRESSIVE AFFECTIVE DISORDER RECURRENT EPISODE MODERATE DEGREE 05/26/2008 300.00 AN ANXIETY UNSPEC 05/26/2008 296.32 MAJOR DEPRESSIVE AFFECTIVE DISORDER RECURRENT EPISODE MODERATE DEGREE 05/26/2008 300.00 AN ANXIETY UNSPEC 05/26/2008 SOLEDAD MAYER DO F 296.32 MAJOR DEPRESSIVE AFFECTIVE DISORDER RECURRENT EPISODE MODERATE DEGREE 05/26/2008 SOLEDAD MAYER DO F 300.00 AN ANXIETY UNSPEC 05/26/2008 SOLEDAD MAYER DO F 296.32 MAJOR DEPRESSIVE AFFECTIVE DISORDER RECURRENT EPISODE MODERATE DEGREE 05/26/2008 SOLEDAD MAYER DO F 300.00 AN ANXIETY UNSPEC 05/26/2008 296.32 MAJOR DEPRESSIVE AFFECTIVE DISORDER RECURRENT EPISODE MODERATE DEGREE 05/26/2008 300.00 AN ANXIETY UNSPEC 05/26/2008 296.32 MAJOR DEPRESSIVE AFFECTIVE DISORDER RECURRENT EPISODE MODERATE DEGREE 05/26/2008 300.00 AN ANXIETY UNSPEC 05/26/2008 296.32 MAJOR DEPRESSIVE AFFECTIVE DISORDER RECURRENT EPISODE MODERATE DEGREE 05/26/2008 300.00 AN ANXIETY UNSPEC 05/26/2008 ALCIDES SEPULVEDA PHD 296.32 MAJOR DEPRESSIVE AFFECTIVE DISORDER RECURRENT EPISODE MODERATE DEGREE 05/26/2008 ALCIDES SEPULVEDA PHD 300.00 AN ANXIETY UNSPEC 05/26/2008 ALCIDES SEPULVEDA PHD 296.32 MAJOR DEPRESSIVE AFFECTIVE DISORDER RECURRENT EPISODE MODERATE DEGREE 05/26/2008 ALCIDES SEPULVEDA PHD 300.00 AN ANXIETY UNSPEC 05/26/2008 DAVID ALAN MD 296.32 MAJOR DEPRESSIVE AFFECTIVE DISORDER RECURRENT EPISODE MODERATE DEGREE 05/26/2008 DAVID ALAN MD 300.00 AN ANXIETY UNSPEC 05/26/2008 ALCIDES SEPULVEDA PHD 296.32 MAJOR DEPRESSIVE AFFECTIVE DISORDER RECURRENT EPISODE MODERATE DEGREE 05/26/2008 ALCIDES SEPULVEDA PHD 300.00 AN ANXIETY UNSPEC 05/26/2008 ALCIDES SEPULVEDA PHD 296.32 MAJOR DEPRESSIVE AFFECTIVE DISORDER RECURRENT EPISODE MODERATE DEGREE 05/26/2008 ALCIDES SEPULVEDA PHD 300.00 AN ANXIETY UNSPEC 05/26/2008 ALCIDES SEPULVEDA PHD 296.32 MAJOR DEPRESSIVE AFFECTIVE DISORDER RECURRENT EPISODE MODERATE DEGREE 05/26/2008 ALCIDES SEPULVEDA PHD 300.00 AN ANXIETY UNSPEC 05/26/2008 ALCIDES SEPULVEDA PHD 296.32 MAJOR DEPRESSIVE AFFECTIVE DISORDER RECURRENT EPISODE MODERATE DEGREE 05/26/2008 ALCIDES SEPULVEDA PHD 300.00 AN ANXIETY UNSPEC 05/26/2008 DAVID ALAN MD 296.32 MAJOR DEPRESSIVE AFFECTIVE DISORDER RECURRENT EPISODE MODERATE DEGREE 05/26/2008 DAVID ALAN MD 300.00 AN ANXIETY UNSPEC 05/26/2008 CODY RODRIGUEZ APRN 296.32 MAJOR DEPRESSIVE AFFECTIVE DISORDER RECURRENT EPISODE MODERATE DEGREE 05/26/2008 JENNIFER TIM CODY 300.00 AN ANXIETY UNSPEC 05/26/2008 LASHAE RODRIGUEZ APRNETTE 296.32 MAJOR DEPRESSIVE AFFECTIVE DISORDER RECURRENT EPISODE MODERATE DEGREE 05/26/2008 JENNIFER TIM CODY 300.00 AN ANXIETY UNSPEC 01/28/2009 294.9 UNSPECIFIED PERSISTENT MENTAL DISORDERS DUE TO CONDITIONS CLASSIFIED ELSEWHERE 01/28/2009 294.9 UNSPECIFIED PERSISTENT MENTAL DISORDERS DUE TO CONDITIONS CLASSIFIED ELSEWHERE 01/28/2009 SOLEDAD MAYER DO 294.9 UNSPECIFIED PERSISTENT MENTAL DISORDERS DUE TO CONDITIONS CLASSIFIED ELSEWHERE 01/28/2009 SOLEDAD MAYER DO 294.9 UNSPECIFIED PERSISTENT MENTAL DISORDERS DUE TO CONDITIONS CLASSIFIED ELSEWHERE 01/28/2009 294.9 UNSPECIFIED PERSISTENT MENTAL DISORDERS DUE TO CONDITIONS CLASSIFIED ELSEWHERE 01/28/2009 294.9 UNSPECIFIED PERSISTENT MENTAL DISORDERS DUE TO CONDITIONS CLASSIFIED ELSEWHERE 01/28/2009 294.9 UNSPECIFIED PERSISTENT MENTAL DISORDERS DUE TO CONDITIONS CLASSIFIED ELSEWHERE 01/28/2009 ALCIDES SEPULVEDA PHD 294.9 UNSPECIFIED PERSISTENT MENTAL DISORDERS DUE TO CONDITIONS CLASSIFIED ELSEWHERE 01/28/2009 ALCIDES SEPULVEDA PHD 294.9 UNSPECIFIED PERSISTENT MENTAL DISORDERS DUE TO CONDITIONS CLASSIFIED ELSEWHERE 01/28/2009 DAVID ALAN MD 294.9 UNSPECIFIED PERSISTENT MENTAL DISORDERS DUE TO CONDITIONS CLASSIFIED ELSEWHERE 01/28/2009 ALCIDES SEPULVEDA PHD 294.9 UNSPECIFIED PERSISTENT MENTAL DISORDERS DUE TO CONDITIONS CLASSIFIED ELSEWHERE 01/28/2009 ALCIDES SEPULVEDA PHD 294.9 UNSPECIFIED PERSISTENT MENTAL DISORDERS DUE TO CONDITIONS CLASSIFIED ELSEWHERE 01/28/2009 ALCIDES SEPULVEDA PHD 294.9 UNSPECIFIED PERSISTENT MENTAL DISORDERS DUE TO CONDITIONS CLASSIFIED ELSEWHERE 01/28/2009 ALCIDES SEPULVEDA PHD 294.9 UNSPECIFIED PERSISTENT MENTAL DISORDERS DUE TO CONDITIONS CLASSIFIED ELSEWHERE 01/28/2009 DAVID ALAN MD 294.9 UNSPECIFIED PERSISTENT MENTAL DISORDERS DUE TO CONDITIONS CLASSIFIED ELSEWHERE 01/28/2009 CODY RODRIGUEZ APRN 294.9 UNSPECIFIED PERSISTENT MENTAL DISORDERS DUE TO CONDITIONS CLASSIFIED ELSEWHERE 01/28/2009 LASHAE RODRIGUEZ APRNETTE 294.9 UNSPECIFIED PERSISTENT MENTAL DISORDERS DUE TO CONDITIONS CLASSIFIED ELSEWHERE 04/20/2011 Ot 272.4 HYPERLIPIDEMIA NEC/NOS 04/20/2011 Ot 401.9 HYPERTENSION NOS 04/20/2011 Ot 414.01 CORONARY ATHEROSCLEROSIS OF [place] CORON 04/20/2011 Ot 414.02 CORON ATHEROSCLEROSIS AUTOLOG VEIN BYPAS 04/20/2011 Ot 414.2 CHRONIC TOTAL OCCLUSION OF CORONARY [place] 04/20/2011 Ot 428.0 CONGESTIVE HEART FAILURE NOS 04/20/2011 Ot 428.22 CHRONIC SYSTOLIC HRT FAILURE 04/20/2011 Ot 433.10 CAROTID ARTERY OCCLUSION W O CEREBRAL IN 04/20/2011 Ot 729.1 MYALGIA AND MYOSITIS NOS 04/20/2011 Ot V45.81 AORTOCORONARY BYPASS 04/20/2011 Ot V58.63 LONG-TERM( CURRENT)USE OF ANTIPLATELET/AN 04/20/2011 Ot V58.66 LONG-TERM ( CURRENT) USE OF ASPIRIN 04/20/2011 Ot V58.69 OTH MED,LT, CURRENT USE 04/27/2012 Ot 244.9 HYPOTHYROIDISM NOS 04/27/2012 Ot 266.2 B-COMPLEX DEFIC NEC 04/27/2012 Ot 272.4 HYPERLIPIDEMIA NEC/NOS 04/27/2012 Ot 311 DEPRESSIVE DISORDER NEC 04/27/2012 Ot 403.90 HYPTNSV CHR KID DIS, UNSPEC, W CHR KD ST 04/27/2012 Ot 414.00 CORON ATHEROSCLER NOS TYPE VESSEL, NATIV 04/27/2012 Ot 414.8 CHR ISCHEMIC HRT DIS NEC 04/27/2012 Ot 564.1 IRRITABLE BOWEL SYNDROME 04/27/2012 Ot 577.0 ACUTE PANCREATITIS 04/27/2012 Ot 585.9 CHRONIC KIDNEY DISEASE, UNSPECIFIED 04/27/2012 Ot 729.1 MYALGIA AND MYOSITIS NOS 04/27/2012 Ot V45.81 AORTOCORONARY BYPASS 05/25/2012 Ot 041.49 OTHER AND UNSPECIFIED ESCHERICHIA COLI [ 05/25/2012 Ot 112.0 THRUSH 05/25/2012 Ot 244.9 HYPOTHYROIDISM NOS 05/25/2012 Ot 266.2 B-COMPLEX DEFIC NEC 05/25/2012 Ot 272.4 HYPERLIPIDEMIA NEC/NOS 05/25/2012 Ot 276.50 VOLUME DEPLETION, UNSPECIFIED 05/25/2012 Ot 311 DEPRESSIVE DISORDER NEC 05/25/2012 Ot 403.90 HYPTNSV CHR KID DIS, UNSPEC, W CHR KD ST 05/25/2012 Ot 414.00 CORON ATHEROSCLER NOS TYPE VESSEL, NATIV 05/25/2012 Ot 414.8 CHR ISCHEMIC HRT DIS NEC 05/25/2012 Ot 530.81 ESOPHAGEAL REFLUX 05/25/2012 Ot 535.40 OTH SPECIFIED GASTRITIS,W/O MENTION OF H 05/25/2012 Ot 535.60 DUODENITIS, WITHOUT MENTION OF HEMORRHAG 05/25/2012 Ot 562.10 DIVERTICULOSIS COLON (W/O MENT OF HEMORR 05/25/2012 Ot 564.00 UNSPEC CONSTIPATION 05/25/2012 Ot 564.1 IRRITABLE BOWEL SYNDROME 05/25/2012 Ot 585.9 CHRONIC KIDNEY DISEASE, UNSPECIFIED 05/25/2012 Ot 599.0 URIN TRACT INFECTION NOS 05/25/2012 Ot 729.1 MYALGIA AND MYOSITIS NOS 05/25/2012 Ot 780.79 OTH MALAISE FATIGUE 05/25/2012 Ot V12.79 PERSONAL HISTORY OTH SPEC DIGESTIVE SYST 05/25/2012 Ot V45.81 AORTOCORONARY BYPASS 05/25/2012 Ot V45.89 POSTSURGICAL STATES NEC 09/10/2012 Ot 272.4 HYPERLIPIDEMIA NEC/NOS 09/10/2012 Ot 401.9 HYPERTENSION NOS 09/10/2012 Ot 414.01 CORONARY ATHEROSCLEROSIS OF [place] CORON 09/10/2012 Ot 414.02 CORON ATHEROSCLEROSIS AUTOLOG VEIN BYPAS 09/10/2012 Ot 414.2 CHRONIC TOTAL OCCLUSION OF CORONARY [place] 09/10/2012 Ot 428.0 CONGESTIVE HEART FAILURE NOS 09/10/2012 Ot 428.22 CHRONIC SYSTOLIC HRT FAILURE 09/10/2012 Ot 433.10 CAROTID ARTERY OCCLUSION W O CEREBRAL IN 09/10/2012 Ot 729.1 MYALGIA AND MYOSITIS NOS 09/10/2012 Ot 794.30 ABN CARDIOVASC STUDY NOS 09/10/2012 Ot V45.81 AORTOCORONARY BYPASS 09/10/2012 Ot V58.63 LONG-TERM( CURRENT)USE OF ANTIPLATELET/AN 09/10/2012 Ot V58.66 LONG-TERM ( CURRENT) USE OF ASPIRIN 09/10/2012 Ot V58.69 OTH MED,LT, CURRENT USE 09/19/2012 SOLEDAD MAYER DO 300.01 AN PANIC DIS W/O AGORA 09/19/2012 300.01 AN PANIC DIS W/O AGORA 09/19/2012 300.01 AN PANIC DIS W/O AGORA 09/19/2012 300.01 AN PANIC DIS W/O AGORA 09/19/2012 DERICK PHD, ALCIDES Obrien 300.01 AN PANIC DIS W/O AGORA 09/19/2012 DERICK PHD, ALCIDES Obrien 300.01 AN PANIC DIS W/O AGORA 09/19/2012 DAVID ALAN MD 300.01 AN PANIC DIS W/O AGORA 09/19/2012 DERICK PHD, ALCIDES Obrien 300.01 AN PANIC DIS W/O AGORA 09/19/2012 DERICK NEUMANN, ALCIDES Obrien 300.01 AN PANIC DIS W/O AGORA 09/19/2012 DERICK NEUMANN, ALCIDES Obrien 300.01 AN PANIC DIS W/O AGORA 09/19/2012 DERICK PHD, ALCIDES Obrien 300.01 AN PANIC DIS W/O AGORA 09/19/2012 DAVID ALAN MD 300.01 AN PANIC DIS W/O AGORA 09/19/2012 CODY RODRIGUEZ APRN 300.01 AN PANIC DIS W/O AGORA 09/19/2012 CODY RODRIGUEZ APRN 300.01 AN PANIC DIS W/O AGORA 04/01/2013 TRUDY LANGFORD Ot 816.00 FX PHALANX, HAND NOS-CL 04/01/2013 TRUDY LANGFORD Ot 959.5 FINGER INJURY NOS 04/01/2013 TRUDY LANGFORD Ot E000.8 OTHER EXTERNAL CAUSE STATUS 04/01/2013 TRUDY LANGFORD Ot E849.0 ACCIDENT IN HOME 04/01/2013 TRUDY LANGFORD Ot E888.9 FALL NOS 04/30/2013 SOLEDAD MAYER DO Ot 272.4 HYPERLIPIDEMIA NEC/NOS 04/30/2013 SOLEDAD MAYER DO Ot 300.01 PANIC DISORDER WITHOUT AGORAPHOBIA 04/30/2013 SOLEDAD MAYER DO Ot 327.23 OBSTRUCTIVE SLEEP APNEA (ADULT) (PEDIATR 04/30/2013 SOLEDAD MAYER DO Ot 428.0 CONGESTIVE HEART FAILURE NOS 04/30/2013 SOLEDAD MAYER DO Ot 729.1 MYALGIA AND MYOSITIS NOS 06/10/2013 BEE SHERMAN, RAY Maria Ot 327.23 OBSTRUCTIVE SLEEP APNEA (ADULT) (PEDIATR 11/26/2013 DAYANNA SHERMAN, 296.35 MO DEPRESSIVE RECURRENT IN PART OR UNSPECIFIED REMISSION 11/26/2013 CODY RODRIGUEZ APRN 296.35 MO DEPRESSIVE RECURRENT IN PART OR UNSPECIFIED REMISSION 11/26/2013 CODY RODRIGUEZ APRN 296.35 MO DEPRESSIVE RECURRENT IN PART OR UNSPECIFIED REMISSION 05/09/2014 SUZETTE COCHRAN MD Ot 244.9 HYPOTHYROIDISM NOS 05/09/2014 SUZETTE COCHRAN MD Ot 250.00 DIAB CHRISTIANO WO COMPL, TYPE II OR UNSPEC TY 05/09/2014 SUZETTE COCHRAN MD Ot 272.4 HYPERLIPIDEMIA NEC/NOS 05/09/2014 SUZETTE COCHRAN MD Ot 276.51 DEHYDRATION 05/09/2014 SUZETTE COCHRAN MD Ot 401.9 HYPERTENSION NOS 05/09/2014 SUZETTE COCHRAN MD Ot 414.00 CORON ATHEROSCLER NOS TYPE VESSEL, NATIV 05/09/2014 SUZETTE COCHRAN MD Ot 424.0 MITRAL VALVE DISORDER 05/09/2014 SUZETTE COCHRAN MD Ot 426.52 RT BBB/LFT ANT FASC BLK 05/09/2014 SUZETTE COCHRAN MD Ot 458.29 OTHER IATROGENIC HYPOTENSION 05/09/2014 SUZETTE COCHRAN MD Ot 780.2 SYNCOPE AND COLLAPSE 05/09/2014 SUZETTE COCHRAN MD Ot V45.81 AORTOCORONARY BYPASS 07/19/2014 ESA BETTS Ot 401.9 07/19/2014 ESA BETTS Ot 414.00 07/19/2014 ESA BETTS Ot 426.4 07/19/2014 ESA BETTS Ot 428.0 07/30/2014 ESA BETTS Ot 401.9 07/30/2014 ESA BETTS Ot 414.00 07/30/2014 ESA BETTS Ot 426.4 07/30/2014 ESA BETTS Ot 428.0 03/10/2015 ESA BETTS Ot 272.4 03/10/2015 ESA BETTS Ot 414.9 03/10/2015 ESA BETTS Ot 428.0 03/10/2015 ESA BETTS Ot 433.10 03/31/2015 ESA BETTS Ot 272.4 03/31/2015 ESA BETTS Ot 414.9 03/31/2015 ESA BETTS Ot 428.0 03/31/2015 ESA BETTS Ot 433.10 08/23/2015 Ot 396.3 08/23/2015 Ot 397.0 08/23/2015 Ot 401.9 08/23/2015 Ot 414.00 08/23/2015 Ot 426.4 09/19/2015 Ot 396.3 09/19/2015 Ot 397.0 09/19/2015 Ot 414.00 09/19/2015 Ot 426.52 09/19/2015 Ot 428.0 09/19/2015 Ot V45.81 09/19/2015 Ot 414.00 09/19/2015 Ot 426.52 09/19/2015 Ot 428.0 09/19/2015 Ot V58.69 09/19/2015 Ot V58.83 09/19/2015 Ot V76.12 09/19/2015 Ot 272.4 09/19/2015 Ot 414.01 09/19/2015 Ot 440.20 09/19/2015 Ot 998.12 09/19/2015 Ot 401.9 09/19/2015 Ot V58.69 09/19/2015 Ot 396.3 09/19/2015 Ot 397.0 09/19/2015 Ot 428.0 09/19/2015 Ot 429.3 09/19/2015 Ot 440.0 09/19/2015 Ot 781.91 09/19/2015 Ot V49.81 09/19/2015 Ot V82.81 09/19/2015 Ot 781.91 09/19/2015 Ot V49.81 09/19/2015 Ot V82.81 09/19/2015 Ot 562.10 09/19/2015 Ot 396.3 09/19/2015 Ot 397.0 09/19/2015 Ot 401.9 09/19/2015 Ot 414.00 09/19/2015 Ot 426.4 09/19/2015 ROSITA CRUZ Ot V49.81 09/19/2015 ROSITA CRUZ Ot V76.12 09/19/2015 ESA BETTS Ot 401.9 09/19/2015 NENO PA, ESA Cote Ot 414.00 09/19/2015 NENO PA, ESA Cote Ot 426.4 09/19/2015 NENO PA, ESA K Ot 428.0 09/19/2015 NENO PA, ESA Cote Ot 272.4 09/19/2015 NENO PA, ESA Cote Ot 414.9 09/19/2015 NENO PA, ESA Cote Ot 428.0 09/19/2015 NENO PA, ESA Cote Ot 433.10 09/21/2015 Ot 396.3 09/21/2015 Ot 397.0 09/21/2015 Ot 414.00 09/21/2015 Ot 426.52 09/21/2015 Ot 428.0 09/21/2015 Ot V45.81 09/21/2015 Ot 414.00 09/21/2015 Ot 426.52 09/21/2015 Ot 428.0 09/21/2015 Ot V76.12 09/21/2015 Ot 272.4 09/21/2015 Ot 414.01 09/21/2015 Ot 440.20 09/21/2015 Ot 998.12 09/21/2015 Ot 401.9 09/21/2015 Ot V58.69 09/21/2015 Ot 396.3 09/21/2015 Ot 397.0 09/21/2015 Ot 428.0 09/21/2015 Ot 429.3 09/21/2015 Ot 440.0 09/21/2015 Ot 781.91 09/21/2015 Ot V49.81 09/21/2015 Ot V82.81 09/21/2015 Ot 781.91 09/21/2015 Ot V49.81 09/21/2015 Ot V82.81 09/21/2015 Ot 562.10 09/21/2015 Ot 396.3 09/21/2015 Ot 397.0 09/21/2015 Ot 401.9 09/21/2015 Ot 414.00 09/21/2015 Ot 426.4 09/21/2015 ROSITA CRUZ Ot V49.81 09/21/2015 ROSITA CRUZ Ot V76.12 09/21/2015 NENO RIZO, ESA Cote Ot 401.9 09/21/2015 ALONSO-DERICK PA, ESA Cote Ot 414.00 09/21/2015 ALONSO-DERICK PA, ESA Cote Ot 426.4 09/21/2015 ALONSO-DERICK PA, ESA Cote Ot 428.0 09/21/2015 ALONSO-DERICK PA, ESA Cote Ot 272.4 09/21/2015 ALONSO-DERICK PA, ESA Cote Ot 414.9 09/21/2015 ALONSO-DERICK PA, ESA Cote Ot 428.0 09/21/2015 ALONSO-DERICK PA, ESA Cote Ot 433.10 09/21/2015 SUZETTE COCHRAN MD Ot E03.9 HYPOTHYROIDISM, UNSPECIFIED 09/21/2015 SUZETTE COCHRAN MD Ot E11.9 TYPE 2 DIABETES MELLITUS WITHOUT COMPLIC 09/21/2015 SUZETTE COCHRAN MD Ot E78.5 HYPERLIPIDEMIA, UNSPECIFIED 09/21/2015 SUZETTE COCHRAN MD Ot I10 ESSENTIAL (PRIMARY) HYPERTENSION 09/21/2015 SUZETTE COCHRAN MD Ot I25.10 ATHSCL HEART DISEASE OF [place] CORONARY 09/21/2015 SUZETTE COCHRAN MD Ot I25.82 CHRONIC TOTAL OCCLUSION OF CORONARY [place] 09/21/2015 SUZETTE COCHRAN MD Ot I50.22 CHRONIC SYSTOLIC (CONGESTIVE) HEART FAIL 09/21/2015 SUZETTE COCHRAN MD Ot 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 09/21/2015 SUZETTE COCHRAN MD Ot 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 09/21/2015 SUZETTE COCHRAN MD Ot R07.89 OTHER CHEST PAIN 09/21/2015 SUZETTE COCHRAN MD Ot Z79.899 OTHER APARTMENT LOCATOR (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 09/21/2015 SUZETTE COCHRAN MD Ot Z95.1 PRESENCE OF AORTOCORONARY BYPASS GRAFT 10/03/2015 SUZETTE COCHRAN MD Ot E03.9 10/03/2015 SUZETTE COCHRAN MD Ot E11.9 10/03/2015 SUZETTE COCHRAN MD Ot E78.5 10/03/2015 SUZETTE COCHRAN MD Ot I10 10/03/2015 SUZETTE COCHRAN MD Ot I25.10 10/03/2015 DIMAS SHERMAN, SUZETTE Hardy Ot I25.82 10/03/2015 DIMAS SHERMAN, SUZETTE Hardy Ot I50.22 10/03/2015 DIMAS SHERMAN, SUZETTE Hardy Ot I65.02 10/03/2015 DIMAS SHERMAN, SUZETTE Hardy Ot I65.23 10/03/2015 DIMAS SHERMAN, SUZETTE Hardy Ot R07.89 10/03/2015 DIMAS SHERMAN, SUZETTE Hardy Ot Z79.899 10/03/2015 DIMAS SHERMAN, SUZETTE Hardy Ot Z95.1 10/11/2015 Ot 396.3 10/11/2015 Ot 397.0 10/11/2015 Ot 414.00 10/11/2015 Ot 426.52 10/11/2015 Ot 428.0 10/11/2015 Ot V45.81 10/11/2015 Ot 414.00 10/11/2015 Ot 426.52 10/11/2015 Ot 428.0 10/11/2015 Ot V76.12 10/11/2015 Ot 272.4 10/11/2015 Ot 414.01 10/11/2015 Ot 440.20 10/11/2015 Ot 998.12 10/11/2015 Ot 401.9 10/11/2015 Ot V58.69 10/11/2015 Ot 396.3 10/11/2015 Ot 397.0 10/11/2015 Ot 428.0 10/11/2015 Ot 429.3 10/11/2015 Ot 440.0 10/11/2015 Ot 781.91 10/11/2015 Ot V49.81 10/11/2015 Ot V82.81 10/11/2015 Ot 781.91 10/11/2015 Ot V49.81 10/11/2015 Ot V82.81 10/11/2015 Ot 562.10 10/11/2015 Ot 396.3 10/11/2015 Ot 397.0 10/11/2015 Ot 401.9 10/11/2015 Ot 414.00 10/11/2015 Ot 426.4 10/11/2015 ROSITA CRUZ Ot V49.81 10/11/2015 ROSITA CRUZ Ot V76.12 10/11/2015 ESA BETTS Ot 401.9 10/11/2015 ESA BETTS Ot 414.00 10/11/2015 NENO RIZO, ESA Cote Ot 426.4 10/11/2015 ESA BETTS Ot 428.0 10/11/2015 NENO RIZO, ESA Cote Ot 272.4 10/11/2015 NENO RIZO, ESA Cote Ot 414.9 10/11/2015 ESA BETTS Ot 428.0 10/11/2015 ESA BETTS Ot 433.10 11/18/2015 Ot 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 11/18/2015 Ot 397.0 TRICUSPID VALVE DISEASE 11/18/2015 Ot 414.00 CORON ATHEROSCLER NOS TYPE VESSEL, NATIV 11/18/2015 Ot 426.52 RT BBB/LFT ANT FASC BLK 11/18/2015 Ot 428.0 CONGESTIVE HEART FAILURE NOS 11/18/2015 Ot V45.81 AORTOCORONARY BYPASS 11/18/2015 Ot 272.4 HYPERLIPIDEMIA NEC/NOS 11/18/2015 Ot 414.01 CORONARY ATHEROSCLEROSIS OF [place] CORON 11/18/2015 Ot 440.20 ATHEROSCLEROSIS [place] ARTERIES EXTREMIT 11/18/2015 Ot 998.12 HEMATOMA COMPLIC A PROC 11/18/2015 Ot 401.9 HYPERTENSION NOS 11/18/2015 Ot V58.69 OTH MED,LT, CURRENT USE 11/18/2015 Ot 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 11/18/2015 Ot 397.0 TRICUSPID VALVE DISEASE 11/18/2015 Ot 428.0 CONGESTIVE HEART FAILURE NOS 11/18/2015 Ot 429.3 CARDIOMEGALY 11/18/2015 Ot 440.0 AORTIC ATHEROSCLEROSIS 11/18/2015 Ot 781.91 LOSS OF HEIGHT 11/18/2015 Ot V49.81 ASYMPT POSTMENOPAUSAL STATUS (AGE-RELATE 11/18/2015 Ot V82.81 SCREENING FOR OSTEOPOROSIS 11/18/2015 Ot 781.91 LOSS OF HEIGHT 11/18/2015 Ot V49.81 ASYMPT POSTMENOPAUSAL STATUS (AGE-RELATE 11/18/2015 Ot V82.81 SCREENING FOR OSTEOPOROSIS 11/18/2015 Ot 562.10 DIVERTICULOSIS COLON (W/O MENT OF HEMORR 11/18/2015 Ot 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 11/18/2015 Ot 397.0 TRICUSPID VALVE DISEASE 11/18/2015 Ot 401.9 HYPERTENSION NOS 11/18/2015 Ot 414.00 CORON ATHEROSCLER NOS TYPE VESSEL, NATIV 11/18/2015 Ot 426.4 RT BUNDLE BRANCH BLOCK 11/18/2015 ROSITA CRUZ TITLE MANAGER Ot V49.81 ASYMPT POSTMENOPAUSAL STATUS (AGE-RELATE 11/18/2015 ROSITA CRUZ TITLE MANAGER Ot V76.12 OTH SCREEN MAMMO-MALIGN NEOPLASM OF [place] 11/18/2015 ESA BETTS Ot 401.9 HYPERTENSION NOS 11/18/2015 ESA BETTS Ot 414.00 CORON ATHEROSCLER NOS TYPE VESSEL, NATIV 11/18/2015 ESA BETTS Ot 426.4 RT BUNDLE BRANCH BLOCK 11/18/2015 ESA BETTS Ot 428.0 CONGESTIVE HEART FAILURE NOS 11/18/2015 ESA BETTS Ot 272.4 HYPERLIPIDEMIA NEC/NOS 11/18/2015 ESA BETTS Ot 414.9 CHR ISCHEMIC HRT DIS NOS 11/18/2015 ESA BETTS Ot 428.0 CONGESTIVE HEART FAILURE NOS 11/18/2015 ESA BETTS Ot 433.10 CAROTID ARTERY OCCLUSION W O CEREBRAL IN 11/25/2015 SUZETTE COCHRAN MD Ot E03.9 HYPOTHYROIDISM, UNSPECIFIED 11/25/2015 SUZETTE COCHRAN MD Ot E11.9 TYPE 2 DIABETES MELLITUS WITHOUT COMPLIC 11/25/2015 SUZETTE COCHRAN MD Ot E78.5 HYPERLIPIDEMIA, UNSPECIFIED 11/25/2015 SUZETTE COCHRAN MD Ot I10 ESSENTIAL (PRIMARY) HYPERTENSION 11/25/2015 SUZETTE COCHRAN MD, Ot I25.10 ATHSCL HEART DISEASE OF [place] CORONARY 11/25/2015 USZETTE COCHRAN MD, Ot I25.82 CHRONIC TOTAL OCCLUSION OF CORONARY [place] 11/25/2015 SUZETTE COCHRAN MD, Ot I50.22 CHRONIC SYSTOLIC (CONGESTIVE) HEART FAIL 11/25/2015 SUZETTE COCHRAN MD, Ot 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 11/25/2015 SUZETTE COCHRAN MD Ot 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 11/25/2015 SUZETTE COCHRAN MD Ot R07.89 OTHER CHEST PAIN 11/25/2015 SUZETTE COCHRAN MD Ot Z79.899 OTHER APARTMENT LOCATOR (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 11/25/2015 SUZETTE COCHRAN MD Ot Z95.1 PRESENCE OF AORTOCORONARY BYPASS GRAFT 07/23/2016 Ot 272.4 HYPERLIPIDEMIA NEC/NOS 07/23/2016 Ot 414.01 CORONARY ATHEROSCLEROSIS OF [place] CORON 07/23/2016 Ot 440.20 ATHEROSCLEROSIS [place] ARTERIES EXTREMIT 07/23/2016 Ot 998.12 HEMATOMA COMPLIC A PROC 07/23/2016 Ot 401.9 HYPERTENSION NOS 07/23/2016 Ot V58.69 OTH MED,LT, CURRENT USE 07/23/2016 Ot 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 07/23/2016 Ot 397.0 TRICUSPID VALVE DISEASE 07/23/2016 Ot 428.0 CONGESTIVE HEART FAILURE NOS 07/23/2016 Ot 429.3 CARDIOMEGALY 07/23/2016 Ot 440.0 AORTIC ATHEROSCLEROSIS 07/23/2016 Ot 781.91 LOSS OF HEIGHT 07/23/2016 Ot V49.81 ASYMPT POSTMENOPAUSAL STATUS (AGE-RELATE 07/23/2016 Ot V82.81 SCREENING FOR OSTEOPOROSIS 07/23/2016 Ot 781.91 LOSS OF HEIGHT 07/23/2016 Ot V49.81 ASYMPT POSTMENOPAUSAL STATUS (AGE-RELATE 07/23/2016 Ot V82.81 SCREENING FOR OSTEOPOROSIS 07/23/2016 Ot 562.10 DIVERTICULOSIS COLON (W/O MENT OF HEMORR 07/23/2016 Ot 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 07/23/2016 Ot 397.0 TRICUSPID VALVE DISEASE 07/23/2016 Ot 401.9 HYPERTENSION NOS 07/23/2016 Ot 414.00 CORON ATHEROSCLER NOS TYPE VESSEL, NATIV 07/23/2016 Ot 426.4 RT BUNDLE BRANCH BLOCK 07/23/2016 ROSITA RCUZ Ot V49.81 ASYMPT POSTMENOPAUSAL STATUS (AGE-RELATE 07/23/2016 ROSITA CRUZ Ot V76.12 OTH SCREEN MAMMO-MALIGN NEOPLASM OF [place] 07/23/2016 ESA BETTS Ot 401.9 HYPERTENSION NOS 07/23/2016 ESA BETTS Ot 414.00 CORON ATHEROSCLER NOS TYPE VESSEL, NATIV 07/23/2016 ESA BETTS Ot 426.4 RT BUNDLE BRANCH BLOCK 07/23/2016 ESA BETTS Ot 428.0 CONGESTIVE HEART FAILURE NOS 07/23/2016 ESA BETTS Ot 272.4 HYPERLIPIDEMIA NEC/NOS 07/23/2016 ESA BETTS Ot 414.9 CHR ISCHEMIC HRT DIS NOS 07/23/2016 ESA BETTS Ot 428.0 CONGESTIVE HEART FAILURE NOS 07/23/2016 ESA BETTS Ot 433.10 CAROTID ARTERY OCCLUSION W O CEREBRAL IN 09/03/2016 Ot 998.12 HEMATOMA COMPLIC A PROC 09/03/2016 Ot 401.9 HYPERTENSION NOS 09/03/2016 Ot V58.69 OTH MED,LT, CURRENT USE 09/03/2016 Ot 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 09/03/2016 Ot 397.0 TRICUSPID VALVE DISEASE 09/03/2016 Ot 428.0 CONGESTIVE HEART FAILURE NOS 09/03/2016 Ot 429.3 CARDIOMEGALY 09/03/2016 Ot 440.0 AORTIC ATHEROSCLEROSIS 09/03/2016 Ot 781.91 LOSS OF HEIGHT 09/03/2016 Ot V49.81 ASYMPT POSTMENOPAUSAL STATUS (AGE-RELATE 09/03/2016 Ot V82.81 SCREENING FOR OSTEOPOROSIS 09/03/2016 Ot 781.91 LOSS OF HEIGHT 09/03/2016 Ot V49.81 ASYMPT POSTMENOPAUSAL STATUS (AGE-RELATE 09/03/2016 Ot V82.81 SCREENING FOR OSTEOPOROSIS 09/03/2016 Ot 562.10 DIVERTICULOSIS COLON (W/O MENT OF HEMORR 09/03/2016 Ot 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 09/03/2016 Ot 397.0 TRICUSPID VALVE DISEASE 09/03/2016 Ot 401.9 HYPERTENSION NOS 09/03/2016 Ot 414.00 CORON ATHEROSCLER NOS TYPE VESSEL, NATIV 09/03/2016 Ot 426.4 RT BUNDLE BRANCH BLOCK 09/03/2016 ROSITA CRUZ Ot V49.81 ASYMPT POSTMENOPAUSAL STATUS (AGE-RELATE 09/03/2016 ROSITA CRUZ Ot V76.12 OTH SCREEN MAMMO-MALIGN NEOPLASM OF [place] 09/03/2016 ESA BETTS Ot 401.9 HYPERTENSION NOS 09/03/2016 ESA BETTS Ot 414.00 CORON ATHEROSCLER NOS TYPE VESSEL, NATIV 09/03/2016 ESA BETTS Ot 426.4 RT BUNDLE BRANCH BLOCK 09/03/2016 ESA BETTS Ot 428.0 CONGESTIVE HEART FAILURE NOS 09/03/2016 ESA BETTS Ot 272.4 HYPERLIPIDEMIA NEC/NOS 09/03/2016 ESA BETTS Ot 414.9 CHR ISCHEMIC HRT DIS NOS 09/03/2016 ESA BETTS Ot 428.0 CONGESTIVE HEART FAILURE NOS 09/03/2016 ESA BETTS Ot 433.10 CAROTID ARTERY OCCLUSION W O CEREBRAL IN 09/03/2016 Ot 998.12 HEMATOMA COMPLIC A PROC 09/03/2016 Ot 401.9 HYPERTENSION NOS 09/03/2016 Ot V58.69 OTH MED,LT, CURRENT USE 09/03/2016 Ot 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 09/03/2016 Ot 397.0 TRICUSPID VALVE DISEASE 09/03/2016 Ot 428.0 CONGESTIVE HEART FAILURE NOS 09/03/2016 Ot 429.3 CARDIOMEGALY 09/03/2016 Ot 440.0 AORTIC ATHEROSCLEROSIS 09/03/2016 Ot 781.91 LOSS OF HEIGHT 09/03/2016 Ot V49.81 ASYMPT POSTMENOPAUSAL STATUS (AGE-RELATE 09/03/2016 Ot V82.81 SCREENING FOR OSTEOPOROSIS 09/03/2016 Ot 781.91 LOSS OF HEIGHT 09/03/2016 Ot V49.81 ASYMPT POSTMENOPAUSAL STATUS (AGE-RELATE 09/03/2016 Ot V82.81 SCREENING FOR OSTEOPOROSIS 09/03/2016 Ot 562.10 DIVERTICULOSIS COLON (W/O MENT OF HEMORR 09/03/2016 Ot 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 09/03/2016 Ot 397.0 TRICUSPID VALVE DISEASE 09/03/2016 Ot 401.9 HYPERTENSION NOS 09/03/2016 Ot 414.00 CORON ATHEROSCLER NOS TYPE VESSEL, NATIV 09/03/2016 Ot 426.4 RT BUNDLE BRANCH BLOCK 09/03/2016 ROSITA CRUZ Ot V49.81 ASYMPT POSTMENOPAUSAL STATUS (AGE-RELATE 09/03/2016 ROSITA CRUZ Ot V76.12 OTH SCREEN MAMMO-MALIGN NEOPLASM OF [place] 09/03/2016 ESA BETTS Ot 401.9 HYPERTENSION NOS 09/03/2016 ESA BETTS Ot 414.00 CORON ATHEROSCLER NOS TYPE VESSEL, NATIV 09/03/2016 ESA BETTS Ot 426.4 RT BUNDLE BRANCH BLOCK 09/03/2016 ESA BETTS Ot 428.0 CONGESTIVE HEART FAILURE NOS 09/03/2016 ESA BETTS Ot 272.4 HYPERLIPIDEMIA NEC/NOS 09/03/2016 ESA BETTS Ot 414.9 CHR ISCHEMIC HRT DIS NOS 09/03/2016 ESA BETTS Ot 428.0 CONGESTIVE HEART FAILURE NOS 09/03/2016 ESA BETTS Ot 433.10 CAROTID ARTERY OCCLUSION W O CEREBRAL IN 09/04/2016 ETHEL MG DO Ot N18.3 CHRONIC KIDNEY DISEASE, STAGE 3 (MODERAT 10/11/2016 ETHEL MG DO Ot N18.3 CHRONIC KIDNEY DISEASE, STAGE 3 (MODERAT 12/02/2016 ETHEL MG DO Ot N18.3 CHRONIC KIDNEY DISEASE, STAGE 3 (MODERAT 01/18/2017 SUZETTE COCHRAN MD, Ot E78.2 MIXED HYPERLIPIDEMIA 01/18/2017 SUZETTE COCHRAN MD Ot I10 ESSENTIAL (PRIMARY) HYPERTENSION 01/18/2017 SUZETTE COCHRAN MD Ot I25.10 ATHSCL HEART DISEASE OF [place] CORONARY 01/18/2017 SUZETTE COCHRAN MD Ot 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 01/18/2017 SUZETTE COCHRAN MD Ot M79.7 FIBROMYALGIA 02/08/2017 SUZETTE COCHRAN MD Ot E78.2 MIXED HYPERLIPIDEMIA 02/08/2017 SUZETTE COCHRAN MD Ot I10 ESSENTIAL (PRIMARY) HYPERTENSION 02/08/2017 SUZETTE COCHRAN MD Ot I25.10 ATHSCL HEART DISEASE OF [place] CORONARY 02/08/2017 SUZETTE COCHRAN MD Ot 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 02/08/2017 SUZETTE COCHRAN MD Ot M79.7 FIBROMYALGIA 03/04/2017 SUZETTE COCHRAN MD Ot E78.2 MIXED HYPERLIPIDEMIA 03/04/2017 SUZETTE COCHRAN MD Ot I10 ESSENTIAL (PRIMARY) HYPERTENSION 03/04/2017 SUZETTE COCHRAN MD, Ot I25.10 ATHSCL HEART DISEASE OF [place] CORONARY 03/04/2017 SUZETTE COCHRAN MD Ot 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 03/04/2017 SUZETTE COCHRAN MD Ot M79.7 FIBROMYALGIA 01/09/2018 Ot 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 01/09/2018 Ot 397.0 TRICUSPID VALVE DISEASE 01/09/2018 Ot 401.9 HYPERTENSION NOS 01/09/2018 Ot 414.00 CORON ATHEROSCLER NOS TYPE VESSEL, NATIV 01/09/2018 Ot 426.4 RT BUNDLE BRANCH BLOCK 01/09/2018 ROSITA CRUZ Ot V49.81 ASYMPT POSTMENOPAUSAL STATUS (AGE-RELATE 01/09/2018 ROSITA CRUZ Ot V76.12 OTH SCREEN MAMMO-MALIGN NEOPLASM OF [place] 01/09/2018 ESA BETTS Ot 401.9 HYPERTENSION NOS 01/09/2018 ESA BETTS Ot 414.00 CORON ATHEROSCLER NOS TYPE VESSEL, NATIV 01/09/2018 ESA BETTS Ot 426.4 RT BUNDLE BRANCH BLOCK 01/09/2018 ESA BETTS Ot 428.0 CONGESTIVE HEART FAILURE NOS 01/09/2018 ESA BETTS Ot 272.4 HYPERLIPIDEMIA NEC/NOS 01/09/2018 ESA BETTS Ot 414.9 CHR ISCHEMIC HRT DIS NOS 01/09/2018 ESA BETTS Ot 428.0 CONGESTIVE HEART FAILURE NOS 01/09/2018 ESA BETTS Ot 433.10 CAROTID ARTERY OCCLUSION W O CEREBRAL IN 01/09/2018 Ot N18.3 CHRONIC KIDNEY DISEASE, STAGE 3 (MODERAT 01/09/2018 SUZETTE COCHRAN MD Ot E78.2 MIXED HYPERLIPIDEMIA 01/09/2018 SUZETTE COCHRAN MD Ot I10 ESSENTIAL (PRIMARY) HYPERTENSION 01/09/2018 SUZETTE COCHRAN MD Ot I25.10 ATHSCL HEART DISEASE OF [place] CORONARY 01/09/2018 SUZETTE COCHRAN MD Ot 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 01/09/2018 SUZETTE COCHRAN MD Ot M79.7 FIBROMYALGIA 01/15/2018 SUZETTE COCHRAN MD Ot E78.5 HYPERLIPIDEMIA, UNSPECIFIED 01/15/2018 SUZETTE COCHRAN MD 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 01/15/2018 SUZETTE COCHRAN MD Ot I11.0 HYPERTENSIVE HEART DISEASE WITH HEART FA 01/15/2018 SUZETTE COCHRAN MD Ot I25.10 ATHSCL HEART DISEASE OF [place] CORONARY 01/15/2018 SUZETTE COCHRAN MD Ot I50.9 HEART FAILURE, UNSPECIFIED 02/04/2018 SUZETTE COCHRAN MD Ot E78.5 HYPERLIPIDEMIA, UNSPECIFIED 02/04/2018 SUZETTE COCHRAN MD 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 02/04/2018 SUZETTE COCHRAN MD Ot I11.0 HYPERTENSIVE HEART DISEASE WITH HEART FA 02/04/2018 SUZETTE COCHRAN MD Ot I25.10 ATHSCL HEART DISEASE OF [place] CORONARY 02/04/2018 SUZETTE COCHRAN MD Ot I50.9 HEART FAILURE, UNSPECIFIED 02/17/2018 SUZETTE COCHRAN MD Ot E78.5 HYPERLIPIDEMIA, UNSPECIFIED 02/17/2018 SUZETTE COCHRAN MD 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 02/17/2018 SUZETTE COCHRAN MD Ot I11.0 HYPERTENSIVE HEART DISEASE WITH HEART FA 02/17/2018 SUZETTE COCHRAN MD Ot I25.10 ATHSCL HEART DISEASE OF [place] CORONARY 02/17/2018 SUZETTE COCHRAN MD Ot I50.9 HEART FAILURE, UNSPECIFIED 05/13/2018 ROSITA CRUZ Ot V49.81 ASYMPT POSTMENOPAUSAL STATUS (AGE-RELATE 05/13/2018 ROSITA CRUZP Ot V76.12 OTH SCREEN MAMMO-MALIGN NEOPLASM OF [place] 05/13/2018 ESA BETTS Ot 401.9 HYPERTENSION NOS 05/13/2018 ESA BETTS Ot 414.00 CORON ATHEROSCLER NOS TYPE VESSEL, NATIV 05/13/2018 ESA BETTS Ot 426.4 RT BUNDLE BRANCH BLOCK 05/13/2018 ESA BETTS Ot 428.0 CONGESTIVE HEART FAILURE NOS 05/13/2018 ESA BETTS Ot 272.4 HYPERLIPIDEMIA NEC/NOS 05/13/2018 ESA BETTS Ot 414.9 CHR ISCHEMIC HRT DIS NOS 05/13/2018 ESA BETTS Ot 428.0 CONGESTIVE HEART FAILURE NOS 05/13/2018 ESA BETTS Ot 433.10 CAROTID ARTERY OCCLUSION W O CEREBRAL IN 05/13/2018 Ot N18.3 CHRONIC KIDNEY DISEASE, STAGE 3 (MODERAT 05/13/2018 SUZETTE COCHRAN MD Ot E78.2 MIXED HYPERLIPIDEMIA 05/13/2018 SUZETTE COCHRAN MD, Ot I10 ESSENTIAL (PRIMARY) HYPERTENSION 05/13/2018 SUZETTE COCHRAN MD, Ot I25.10 ATHSCL HEART DISEASE OF [place] CORONARY 05/13/2018 SUZETTE COCHRAN MD Ot 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 05/13/2018 SUZETTE COCHRAN MD Ot M79.7 FIBROMYALGIA 05/13/2018 SUZETTE COCHRAN MD, Ot E78.5 HYPERLIPIDEMIA, UNSPECIFIED 05/13/2018 SUZETTE COCHRAN MD 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 05/13/2018 SUZETTE COCHRAN MD, Ot I11.0 HYPERTENSIVE HEART DISEASE WITH HEART FA 05/13/2018 SUZETTE COCHRAN MD, Ot I25.10 ATHSCL HEART DISEASE OF [place] CORONARY 05/13/2018 SUZETTE COCHRAN MD Ot I50.9 HEART FAILURE, UNSPECIFIED Procedures Code Description Performed By Performed On 45.16 ESOPHAGOGASTRODUODENOSCOPY [ EGD] W/CLOSE 05/23/2012 67329 PSYCH DIAGNOSTIC EVALUATION 09/25/2012 41086 PSYTX PT&/FAMILY 45 MINUTES 11/20/2012 47773 PSYTX PT&/FAMILY 45 MINUTES 01/06/2013 67673 PSYTX PT&/FAMILY 45 MINUTES 03/05/2013 94584 SLEEP STUDY 04/10/2013 82065 PSYTX PT&/FAMILY 45 MINUTES 04/13/2013 60858 PSYTX PT&/FAMILY 45 MINUTES 05/01/2013 48578 PSYTX PT&/FAMILY 45 MINUTES 08/21/2013 97478 PSYTX PT&/FAMILY 45 MINUTES 09/08/2013 64930 PSYTX PT&/FAMILY 45 MINUTES 09/23/2013 53146 PSYTX PT&/FAMILY 45 MINUTES 11/10/2013 Results Test Result Range 24 hour urine creatinine panel - 09/05/16 10:30 Urine creatinine measurement (mass/volume) 90 mg/dL 30- 125 24 hour urine specimen volume measurement 800 mL NRG Creatinine ur 24hr 720 mg 800-1700 24 hour urine protein measurement (mass/volume) - 09/05/16 10:30 Urine protein measurement (mass/volume) < mg/dL 6-12 24 hour urine protein measurement (mass/time) TNP 0-149 Encounters ACCT No. Visit Date/Time Discharge Status Pt. Type Provider Facility Loc./Unit Complaint [id number] 02/25/2014 15:48:00 02/25/2014 23:59:59 CODY Odom APRN [id number] 02/25/2014 15:48:00 02/25/2014 23:59:59 CODY Odom APRN [id number] 11/26/2013 09:48:00 11/26/2013 23:59:59 DAVID Carter MD [id number] 11/10/2013 17:55:00 11/10/2013 23:59:59 [facility] Outpatient ALCIDES SEPULVEDA PHD [id number] 09/22/2013 16:49:00 09/22/2013 23:59:59 [facility] Outpatient ALCIDES SEPULVEDA PHD [id number] 09/08/2013 15:53:00 09/08/2013 23:59:59 [facility] Outpatient ALCIDES SEPULVEDA PHD [id number] 08/21/2013 15:57:00 08/21/2013 23:59:59 ALCIDES Bernstein PHD [id number] 08/20/2013 09:49:00 08/20/2013 23:59:59 DUT[facility] Outpatient DAVID ALAN MD [id number] 04/28/2013 15:54:00 04/28/2013 23:59:59 [facility] Outpatient ALCIDES SEPULVEDA PHD [id number] 04/10/2013 14:55:00 04/10/2013 23:59:59 [facility] Outpatient ALCIDES SEPULVEDA PHD [id number] 09/19/2012 11:27:00 09/19/2012 23:59:59 CLS Outpatient SOLEDAD MAYER DO [id number] 08/04/2012 14:29:00 08/04/2012 23:59:59 [place] [id number] 08/31/2011 14:27:00 08/31/2011 23:59:59 CLS Outpatient [id number] 08/31/2011 14:27:00 08/31/2011 23:59:59 CLS Outpatient [id number] 03/04/2013 14:49:00 Document Registration [id number] 01/06/2013 09:59:00 Document Registration [id number] 11/19/2012 12:48:00 Document Registration [id number] 02/17/2015 10:02:59 ACT Document Registration [id number] 01/13/2018 11:19:00 01/13/2018 23:59:59 CLS Outpatient SUZETTE COCHRAN MD [facility] CARD I25.10 CAD [id number] 01/17/2017 12:51:00 01/17/2017 23:59:59 CLS Outpatient SUZETTE COCHRAN MD [facility] CARD CAD I25.10 [id number] 09/05/2016 11:05:00 09/05/2016 23:59:59 CLS Outpatient ETHEL MG DO [facility] LAB N18.3 [id number] 09/21/2015 11:55:00 09/21/2015 18:55:00 DIS Outpatient SUZETTE COCHRAN MD [facility] UNSTABLE ANGINA, CAD, HTN,HLP [id number] 02/17/2015 10:02:00 02/17/2015 23:59:59 CLS Outpatient ESA BETTS [facility] CARD CAD,CHF,MODESTA, HLP [id number] 06/15/2014 11:44:00 06/15/2014 23:59:59 CLS Outpatient ESA BETTS [facility] CARD CAD,CHF,HTN [id number] 05/08/2014 12:07:00 05/09/2014 13:15:00 DIS Inpatient SUZETTE COCHRAN MD [facility] CSD HYPOTENSION ATYPICAL CHEST PAIN [id number] 10/22/2013 09:21:00 10/22/2013 23:59:59 CLS Outpatient ROSITA CRUZ [facility] RAD SCREENING,POST MENAPAUSAL STATUS [id number] 06/09/2013 19:51:00 06/10/2013 06:25:00 DIS Outpatient RAY GAMBOA MD [facility] SLEEP KRISTAL [id number] 04/29/2013 20:58:00 04/30/2013 07:10:00 DIS Outpatient SOLEDAD MAYER DO [facility] SLEEP KRISTAL,INSOMNIA [id number] 04/01/2013 21:23:00 04/01/2013 23:28:00 DIS Emergency TRUDY LANGFORD [facility] ER FALL/RIGHT RING FINGER INJURY [id number] 03/19/2013 19:06:00 03/19/2013 23:59:59 CLS Outpatient [id number] 01/31/2013 11:45:00 01/31/2013 23:59:59 CLS Outpatient [id number] 05/13/2018 11:26:00 ACT Emergency JOSEFINA RIVAS MD [facility] ER BLOATING;CRAMPING [id number] 12/03/2016 00:00:00 Document Registration [id number] 09/19/2015 12:20:00 Document Registration [id number] 09/19/2015 12:20:00 Document Registration [id number] 09/10/2012 08:52:00 Document Registration [id number] 09/02/2012 10:25:00 Document Registration [id number] 05/21/2012 11:55:00 Document Registration [id number] 05/20/2012 08:59:00 Document Registration [id number] 04/25/2012 21:02:00 Document Registration [id number] 07/31/2011 13:00:00 Document Registration [id number] 07/31/2011 12:57:00 Document Registration [id number] 06/01/2011 09:17:00 Document Registration [id number] 04/26/2011 15:23:00 Document Registration [id number] 04/20/2011 06:50:00 Document Registration [id number] 03/06/2011 07:04:00 Document Registration [id number] 06/22/2010 09:22:00 Document Registration [id number] 05/09/2010 09:42:00 Document Registration [id number] 04/24/2010 06:30:00 Document Registration [id number] 03/30/2010 06:39:00 Document Registration [id number] 02/14/2018 08:00:00 02/14/2018 23:59:59 [facility] Outpatient JOSEP [facility]ALL [facility]
--- NOTE | 2018-05-13 12:05 | ED GI ---
General Chief Complaint: Abdominal/GI Problems Stated Complaint: BLOATING;CRAMPING Nursing Triage Note: PT AMB TO ROOM #9 W/O DIFFICULTY. A&OX4. C/O ABD PAIN AND BLOATING. PT REPORTS APPROX 24HRS AGO SEVERE ABD CRAMING DESCRIBED STABBING PAIN WITH BLOATING BEGAN. DENIES NAUSEA. PT REPORTS CURRENTLTY FEELS BETTER RATING PAIN 4/10. LBM 0000 ON THIS DAY. REPORTS IBS. Sepsis Screen: No Definite Risk Source of Information: Patient Exam Limitations: No Limitations History of Present Illness Date Seen by Provider: May 13, 2018 Time Seen by Provider: 12:02 Initial Comments To ER with reports of abdominal pain and cramping and bloating. It began at 3 AM on 05/12/18. Since then the pain has improved,, she had a bowel movement at midnight 12 hours ago, denies nausea or vomiting. However since midnight she has not passed any gas. No history of this but she does have a history of irritable bowel syndrome. Only prior abdominal surgery is a hiatal hernia repair many years ago. Pain was worst underneath her right rib cage. Timing/Duration: 24 Hours, Intermittent Severity/Quality: Severe, Cramping Location: Generalized Abdomen Radiation: No Radiation Activities at Onset: None Associated Symptoms: Nausea/Vomiting Allergies and Home Medications Allergies Coded Allergies: cefadroxil (Verified Allergy, Unknown, 04/16/08) codeine (Verified Allergy, Unknown, 04/16/08) olanzapine (Verified Allergy, Unknown, 08/03/08) Home Medications Aspirin 81 Mg Tabec, 81 MG PO HS PRN for FLUSHING, (Reported) Atorvastatin Calcium 80 Mg Tablet, 80 MG PO HS, (Reported) Brexpiprazole 0.5 Mg Tablet, 0.5 MG PO HS, (Reported) Cholecalciferol 1,000 Unit Capsule, 2,000 UNIT PO BID, (Reported) TAKES 2 (1000 UNIT) CAPSULES Colestipol Hcl,Micronized 1 Gm Tablet, 1 GM PO BID, (Reported) Cyanocobalamin (Vitamin B-12) 2,500 Mcg Tab.subl, 2,500 MCG SL DAILY, (Reported) Digoxin 250 Mcg Tablet, 250 MCG PO HS, (Reported) Duloxetine Hcl 60 Mg Capsule.dr, 60 MG PO BID, (Reported) Gabapentin 300 Mg Cap, 300 MG PO BID, (Reported) Levothyroxine Sodium 88 Mcg Tablet, 88 MCG PO HS, (Reported) Metoprolol Tartrate 25 Mg Tablet, 25 MG PO BID, (Reported) Mv,Ca,Iron,Min/FA/Phytosterol 1 Each Tablet, 1 TAB PO BID, (Reported) Niacin 1,000 Mg Tab.er.24h, 1,000 MG PO HS, (Reported) [place]-3 Acid Ethyl Esters 1 Gm Capsule, 2 GM PO BID, (Reported) TAKES 2 (1 GM) CAPSULES Triamcinolone Acet 15 Gm Cr, TP BID, (Reported) APPLY TO LEG 0.5% Patient Home Medication List Home Medication List Reviewed: Yes Review of Systems Review of Systems Constitutional: see HPI EENTM: No Symptoms Reported Respiratory: No Symptoms Reported Cardiovascular: No Symptoms Reported Gastrointestinal: See HPI, Abdominal Pain; Denies Constipated, Denies Diarrhea , Denies Nausea, Denies Vomiting Genitourinary: No Symptoms Reported Musculoskeletal: no symptoms reported Skin: no symptoms reported Psychiatric/Neurological: No Symptoms Reported Endocrine: No Symptoms Reported Hematologic/Lymphatic: No Symptoms Reported Past Ekzbkei-Moyekq-Fbxszs Hx Patient Social History Alcohol Use: Denies Use Recreational Drug Use: No Smoking Status: Never a Smoker 2nd Hand Smoke Exposure: No Recent Foreign Travel: No Contact w/Someone Who Travel: No Recent Infectious Disease Expo: No Recent Hopitalizations: Yes Physical Abuse: No Sexual Abuse: No Mistreated: No Immunizations Up To Date Date of Pneumonia Vaccine: Mar 31, 2013 Date of Influenza Vaccine: Apr 26, 2015 Seasonal Allergies Seasonal Allergies: No Past Medical History Surgeries: Yes (Hiatal Hernia, Breast BX, Bladder surgery x 3 (had mesh sling, tie up, ) CABG, Hysterectomy Respiratory: No Sleep Apnea Cardiac: Yes Coronary Artery Disease, High Cholesterol, Hypertension Neurological: No 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 History: Hysterectomy Bladder Infection, UTI-Chronic Gastrointestinal: Yes Diverticulosis, Irritable Bowel Musculoskeletal: Yes Arthritis, Fibromyalgia Endocrine: Yes Hypothyroidsim Cataract Loss of Vision: Denies Cancer: No Psychosocial: Yes Anxiety, Depression Integumentary: No Blood Disorders: No Family Medical History Alzheimer's disease (mother) Cardiovascular disease (mother and father) Carotid artery stenosis (father) Hypercholesterolemia (mother and father) Hypertension Myocardial infarction (mother and father) No Pertinent Family Hx Physical Exam Vital Signs Vital Signs - First Documented 05/13/18 11:40 Temp 97.6 Pulse 68 Resp 16 B/P (MAP) 110/76 (87) Pulse Ox 100 O2 Delivery Room Air Capillary Refill : Less Than 3 Seconds Height/Weight/BMI Height: 5'3.00" Weight: 139lbs. 0.0oz. 63.642528we; 23.46 BMI Method:Stated General Appearance: WD/WN, no apparent distress, other (states that this very moment she is feeling quite a bit better) HEENT: PERRL/EOMI, normal ENT inspection Neck: non-tender, full range of motion Respiratory: normal breath sounds, no respiratory distress, no accessory muscle use Gastrointestinal: normal bowel sounds, non tender, soft, other (hypoactive high -pitched bowel sounds on the left) Extremities: normal range of motion, non-tender Neurologic/Psychiatric: alert, normal mood/affect, oriented x 3 Skin: normal color, warm/dry Progress/Results/Core Measures Results/Orders Lab Results Laboratory Tests Test 05/13/18 11:53 05/13/18 12:48 Range/Units White Blood Count 6.6 4.3-11.0 10^3/uL Red Blood Count 4.17 L 4.35-5.85 10^6/uL Hemoglobin 13.9 11.5-16.0 G/DL Hematocrit 41 35-52 % Mean Corpuscular Volume 98 80-99 FL Mean Corpuscular Hemoglobin 33 25-34 PG Mean Corpuscular Hemoglobin Concent 34 32-36 G/DL Red Cell Distribution Width 12.3 10.0-14.5 % Platelet Count 165 130-400 10^3/uL Mean Platelet Volume 11.3 H 7.4-10.4 FL Neutrophils (%) (Auto) 70 42-75 % Lymphocytes (%) (Auto) 22 12-44 % Monocytes (%) (Auto) 6 0-12 % Eosinophils (%) (Auto) 3 0-10 % Basophils (%) (Auto) 0 0-10 % Neutrophils # (Auto) 4.6 1.8-7.8 X 10^3 Lymphocytes # (Auto) 1.4 1.0-4.0 X 10^3 Monocytes # (Auto) 0.4 0.0-1.0 X 10^3 Eosinophils # (Auto) 0.2 0.0-0.3 10^3/uL Basophils # (Auto) 0.0 0.0-0.1 10^3/uL Sodium Level 140 135-145 MMOL/L Potassium Level 3.6 3.6-5.0 MMOL/L Chloride Level 105 98-107 MMOL/L Carbon Dioxide Level 22 21-32 MMOL/L Anion Gap 13 5-14 MMOL/L Blood Urea Nitrogen 11 7-18 MG/DL Creatinine 1.39 H 0.60-1.30 MG/DL Estimat Glomerular Filtration Rate 37 BUN/Creatinine Ratio 8 Glucose Level 117 H 70-105 MG/DL Calcium Level 9.6 8.5-10.1 MG/DL Corrected Calcium 9.6 8.5-10.1 MG/DL Total Bilirubin 0.8 0.1-1.0 MG/DL Aspartate Amino Transf (AST/SGOT) 26 5-34 U/L Alanine Aminotransferase (ALT/SGPT) 16 0-55 U/L Alkaline Phosphatase 87 40-136 U/L Total Protein 6.8 6.4-8.2 GM/DL Albumin 4.0 3.2-4.5 GM/DL Lipase 21 8-78 U/L Urine Color YELLOW Urine Clarity VERY CLOUDY H Urine pH 5 5-9 Urine Specific [place] 1.015 L 1.016-1.022 Urine Protein NEGATIVE NEGATIVE Urine Glucose (UA) NEGATIVE NEGATIVE Urine Ketones NEGATIVE NEGATIVE Urine Nitrite POSITIVE H NEGATIVE Urine Bilirubin NEGATIVE NEGATIVE Urine Urobilinogen NORMAL NORMAL MG/DL Urine Leukocyte Esterase 2+ H NEGATIVE Urine RBC (Auto) NEGATIVE NEGATIVE Urine RBC NONE /HPF Urine WBC 50-100 H /HPF Urine Squamous Epithelial Cells RARE /HPF Urine Crystals NONE /LPF Urine Bacteria LARGE H /HPF Urine Casts NONE /LPF Urine Mucus NEGATIVE /LPF Urine Culture Indicated YES My Orders Orders - ANKITA MAY FUTURES TRADER Cbc With Automated Diff (05/13/18 12:01) Comprehensive Metabolic Panel (05/13/18 12:01) Ua Culture If Indicated (05/13/18 12:01) Lipase (05/13/18 12:01) Chest 1 View, Ap/Pa Only (05/13/18 12:01) Ns Iv 500 Ml (Sodium Chloride 0.9%) (05/13/18 12:15) Ct Abdomen/Pelvis Wo (05/13/18 12:44) Urine Culture (05/13/18 12:48) Vital Signs/I&O 05/13/18 11:40 Temp 97.6 Pulse 68 Resp 16 B/P (MAP) 110/76 (87) Pulse Ox 100 O2 Delivery Room Air Blood Pressure Mean: 87 Diagnostic Imaging Diagonstic Imaging: Xray Plain Films/CT/US/NM/MRI: chest Comments NAME: DEYSI HAGER MED REC#: [id number] PT STATUS: REG ER : 1945 PHYSICIAN: ANKITA MAY APRN ADMIT DATE: 05/13/18/ER Draft Date of Exam:05/13/18 CHEST 1 VIEW, AP/PA ONLY CLINICAL INDICATION: Patient states abdominal pain and bloating. No chest complaints at this time. EXAM: Portable chest x-ray upright view. COMPARISONS: Chest x-ray dated 09/21/2015. FINDINGS: Lungs/pleura: Stable mild elevation of right hemidiaphragm. There is interval development of mild medial right lung base atelectasis versus infiltrate. Otherwise, lungs are clear. There is no pneumothorax. There is no pleural effusion. Mediastinum: Unremarkable. Pulmonary vasculature: Unremarkable. Heart: Stable upper limits of normal heart size with postop changes consistent with CABG. Bones/extrathoracic soft tissue: There are degenerative spurs involving the spine. Incidental note of air-dilated loop of intestine overlying the abdomen. IMPRESSION: 1: There is interval development of mild medial right lung base atelectasis versus infiltrate. 2: Air-dilated intestine seen overlying the abdomen. X-ray of the abdomen upright and supine views would help better evaluate. 3: The remainder of this exam shows no significant interval change compared to the prior study of comparison with no other acute finding. Dictated on workstation # [id number] Dict: 05/13/18 1248 Trans: 05/13/18 1303 [id number] Interpreted by: LIZ BHARDWAJ MD Electronically signed by: Departure Communication (Admissions) Time/Spoke to Admitting Phy: 14:[address] Andrade of consult. 1400- I did notify Dr. Bello of the case. He will be down to see her and evaluate and tentatively planned for surgical management. NAME: EDYSI HAGER MED REC#: [id number] PT STATUS: REG SDC : 1945 PHYSICIAN: ANKITA MAY APRN ADMIT DATE: 05/13/18/[facility] [place] Date of Exam:05/13/18 CT ABDOMEN/PELVIS WO PROCEDURE: CT abdomen and pelvis without contrast. TECHNIQUE: Multiple contiguous axial images were obtained through the abdomen and pelvis without the use of intravenous contrast. INDICATION: Abdominal pain. COMPARISON: CT abdomen and pelvis from 05/20/2012. FINDINGS: Evaluation of the abdominal viscera is mildly limited without contrast. Lower chest: The lung bases are clear. No pericardial or pleural effusion. Peritoneum: No free intraperitoneal air or fluid. Liver and biliary system: Unenhanced liver is normal. The gallbladder is normal. No biliary duct dilation. Spleen and Pancreas: Spleen is normal. Unenhanced pancreas is grossly normal. Adrenals: Normal. tract: No renal or ureteral calculi. No obstructive uropathy. Hysterectomy. GI tract: Stomach is decompressed. The cecum is flipped into the left upper quadrant and there is swirling of the mesenteric root of the ascending colon in the right upper quadrant, best seen on coronal images 22-24. The appendix is located in the left upper quadrant anterior to the stomach. There is no dilation of the small bowel at this time due to a competent ileocecal valve being present. The cecum is dilated up to 7.7 cm. Vasculature and Lymph nodes: Normal caliber aorta with extensive atherosclerotic plaquing. No abdominal or pelvic lymphadenopathy. Musculoskeletal: No concerning osseous lesion. IMPRESSION: 1. 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 Due to a competent ileocecal valve, this causes high-grade colonic obstruction. No perforation or pneumatosis at this time and the cecum measures 7.7 cm in diameter. 2. Findings were discussed with Ankita May by Dr. Rex Mckinnon at 2:05 p.m. on 05/13/2018. Dictated on workstation # [id number] Dict: 05/13/18 1349 Trans: 05/13/18 1414 [id number] Interpreted by: REX MCKINNON MD Electronically signed by: Impression Primary Impression: Cecal volvulus Additional Impression: Urinary tract infection Disposition: ADMITTED INPATIENT Condition: Stable Admissions Decision to Admit Reason: Admit from ER (General) Decision to Admit/Date: May 13, 2018 Time/Decision to Admit Time: 14:32 Departure-Patient Inst. Referrals: ETHEL MG DO (PCP/Family) Primary Care Physician ANKITA MAY APRN May 13, 2018 12:05
[2018-05-13 12:21] LABS: BASOPHILS % (AUTO) 0 % (0-10); EOSINOPHILS # (AUTO) 0.2 10^3/uL (0.0-0.3); EOSINOPHILS % (AUTO) 3 % (0-10); HEMATOCRIT 41 % (35-52); HEMOGLOBIN 13.9 G/DL (11.5-16.0); LYMPHOCYTES # (AUTO) 1.4 X 10^3 (1.0-4.0); LYMPHOCYTES % (AUTO) 22 % (12-44); MEAN CORPUSCULAR HEMOGLOBIN 33 PG (25-34); MEAN CORPUSCULAR HGB CONC 34 G/DL (32-36); MEAN CORPUSCULAR VOLUME 98 FL (80-99); MEAN PLATELET VOLUME 11.3 FL (7.4-10.4); MONOCYTES # (AUTO) 0.4 X 10^3 (0.0-1.0); MONOCYTES % (AUTO) 6 % (0-12); NEUTROPHILS # (AUTO) 4.6 X 10^3 (1.8-7.8); NEUTROPHILS % (AUTO) 70 % (42-75); PLATELET COUNT 165 10^3/uL (130-400); RED BLOOD COUNT 4.17 10^6/uL (4.35-5.85); RED CELL DISTRIBUTION WIDTH 12.3 % (10.0-14.5); WHITE BLOOD COUNT 6.6 10^3/uL (4.3-11.0)
[2018-05-13 12:36] LABS: BILIRUBIN,TOTAL 0.8 MG/DL (0.1-1.0); CALCIUM 9.6 MG/DL (8.5-10.1); CREATININE SERUM 1.39 MG/DL (0.60-1.30); POTASSIUM 3.6 MMOL/L (3.6-5.0); TOTAL PROTEIN 6.8 GM/DL (6.4-8.2)
[2018-05-13] MEDS: NS IV 500 ML 500 ML IV SCH (12:45)
[2018-05-13 12:55] LABS: BILIRUBIN,URINE NEGATIVE (NEGATIVE); COLOR,URINE YELLOW; GLUCOSE, URINE (UA) NEGATIVE (NEGATIVE); KETONES,URINE NEGATIVE (NEGATIVE); LEUKOCYTE ESTERASE ,URINE 2+ (NEGATIVE); NITRITE,URINE POSITIVE (NEGATIVE); PH,URINE 5 (5-9); PROTEIN,URINE NEGATIVE (NEGATIVE); UROBILINOGEN,URINE NORMAL (NORMAL)
--- NOTE | 2018-05-13 13:03 | Diagnostic Imaging Report ---
CLINICAL INDICATION: Patient states abdominal pain and bloating. No chest complaints at this time. EXAM: Portable chest x-ray upright view. COMPARISONS: Chest x-ray dated 09/21/2015. FINDINGS: Lungs/pleura: Stable mild elevation of right hemidiaphragm. There is interval development of mild medial right lung base atelectasis versus infiltrate. Otherwise, lungs are clear. There is no pneumothorax. There is no pleural effusion. Mediastinum: Unremarkable. Pulmonary vasculature: Unremarkable. Heart: Stable upper limits of normal heart size with postop changes consistent with CABG. Bones/extrathoracic soft tissue: There are degenerative spurs involving the spine. Incidental note of air-dilated loop of intestine overlying the abdomen. IMPRESSION: 1: There is interval development of mild medial right lung base atelectasis versus infiltrate. 2: Air-dilated intestine seen overlying the abdomen. X-ray of the abdomen upright and supine views would help better evaluate. 3: The remainder of this exam shows no significant interval change compared to the prior study of comparison with no other acute finding. Dictated by: Dictated on workstation # [id number]
[2018-05-13 13:17] LABS: BACTERIA,URINE LARGE /HPF; CLARITY,URINE VERY CLOUDY; SQUAMOUS EPITHELIAL CELL,UR RARE /HPF; WBC,URINE 50-100 /HPF
--- NOTE | 2018-05-13 14:14 | Diagnostic Imaging Report ---
PROCEDURE: CT abdomen and pelvis without contrast. TECHNIQUE: Multiple contiguous axial images were obtained through the abdomen and pelvis without the use of intravenous contrast. INDICATION: Abdominal pain. COMPARISON: CT abdomen and pelvis from 05/20/2012. FINDINGS: Evaluation of the abdominal viscera is mildly limited without contrast. Lower chest: The lung bases are clear. No pericardial or pleural effusion. Peritoneum: No free intraperitoneal air or fluid. Liver and biliary system: Unenhanced liver is normal. The gallbladder is normal. No biliary duct dilation. Spleen and Pancreas: Spleen is normal. Unenhanced pancreas is grossly normal. Adrenals: Normal. tract: No renal or ureteral calculi. No obstructive uropathy. Hysterectomy. GI tract: Stomach is decompressed. The cecum is flipped into the left upper quadrant and there is swirling of the mesenteric root of the ascending colon in the right upper quadrant, best seen on coronal images 22-24. The appendix is located in the left upper quadrant anterior to the stomach. There is no dilation of the small bowel at this time due to a competent ileocecal valve being present. The cecum is dilated up to 7.7 cm. Vasculature and Lymph nodes: Normal caliber aorta with extensive atherosclerotic plaquing. No abdominal or pelvic lymphadenopathy. Musculoskeletal: No concerning osseous lesion. IMPRESSION: 1. 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 Due to a competent ileocecal valve, this causes high-grade colonic obstruction. No perforation or pneumatosis at this time and the cecum measures 7.7 cm in diameter. 2. Findings were discussed with Phu May by Dr. Rex Mckinnon at 2:05 p.m. on 05/13/2018. Dictated by: Dictated on workstation # [id number]
[2018-05-13] MEDS ORDERED: LEVOFLOXACIN 500 MG/100 ML IV 100 ML IV ONE (14:30)
[2018-05-13] MEDS ORDERED: LACTATED RINGERS 1,000 ML IV PRN (14:34)
--- OUTSIDE RECORDS SUMMARY | 2018-05-13 15:38 | XMS REPORT | Continuity of Care Document ---
Author Author [facility] Address Unknown Phone Unavailable Allergies Active Description Code Type Severity Reaction Onset Reported/Identified Relationship to Patient Clinical Status Yes cefadroxil [id number] Drug Allergy Unknown N/A 04/16/2008 Yes codeine [id number] Drug Allergy Unknown N/A 04/16/2008 Yes olanzapine [id number] Drug Allergy Unknown N/A 08/03/2008 Yes codeine [...] PF PSYCHIC FACTORS MED COND 05/05/2008 JENNIFER ORACLE ENGINEER, CODY 296.30 MAJOR DEPRESSIVE AFFECTIVE DISORDER RECURRENT EPISODE UNSPECIFIED DEGREE 05/05/2008 JENNIFER ORACLE ENGINEER, CODY 300.21 AN PANIC DIS W AGORA 05/05/2008 JENNIFER ORACLE ENGINEER, CODY 307.47 SI DYSSOMNIA NOS 05/05/2008 JENNIFER ORACLE ENGINEER, CODY 316 PF PSYCHIC FACTORS MED COND 05/05/2008 JENNIFER ORACLE ENGINEER, CODY 296.30 MAJOR DEPRESSIVE AFFECTIVE DISORDER RECURRENT EPISODE UNSPECIFIED DEGREE 05/05/2008 JENNIFER ORACLE ENGINEER, CODY 300.21 AN PANIC DIS W [place] 05/05/2008 JENNIFER ORACLE ENGINEER, CODY 307.47 SI DYSSOMNIA NOS 05/05/2008 JENNIFER ORACLE ENGINEER, CODY 316 PF PSYCHIC FACTORS MED COND [...] AFFECTIVE DISORDER RECURRENT EPISODE MODERATE DEGREE 05/26/2008 JENNFIER TIM CODY 300.00 AN ANXIETY UNSPEC 05/26/2008 [...] NOS 04/20/2011 Ot 414.01 CORONARY ATHEROSCLEROSIS OF [place] CORON 04/20/2011 Ot 414.02 CORON ATHEROSCLEROSIS AUTOLOG [...] NOS 09/10/2012 Ot 414.01 CORONARY ATHEROSCLEROSIS OF [place] CORON 09/10/2012 Ot 414.02 CORON ATHEROSCLEROSIS AUTOLOG [...] 433.10 03/31/2015 ESA BETTS Ot 272.4 03/31/2015 EAS BETTS Ot 414.9 03/31/2015 ESA BETTS Ot [...] MD Ot I25.10 ATHSCL HEART DISEASE OF [place] CORONARY 09/21/2015 SUZETTE COCHRAN MD Ot I25.82 [...] 09/21/2015 SUZETTE COCHRAN MD Ot 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 (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 09/21/2015 SUZETTE COCHRAN MD [...] NEC/NOS 11/18/2015 Ot 414.01 CORONARY ATHEROSCLEROSIS OF [place] CORON 11/18/2015 Ot 440.20 ATHEROSCLEROSIS [place] ARTERIES EXTREMIT 11/18/2015 Ot 998.12 HEMATOMA COMPLIC [...] RT BUNDLE BRANCH BLOCK 11/18/2015 ROSITA CRUZ CHEERLEADING COACH Ot V49.81 ASYMPT POSTMENOPAUSAL STATUS (AGE-RELATE 11/18/2015 ROSITA CRUZ CHEERLEADING COACH Ot V76.12 OTH SCREEN MAMMO-MALIGN NEOPLASM OF [...] MD, Ot I25.10 ATHSCL HEART DISEASE OF [place] CORONARY 11/25/2015 SUZETTE COCHRAN MD, Ot I25.82 CHRONIC TOTAL OCCLUSION OF CORONARY [place] 11/25/2015 SUZETTE COCHRAN MD, Ot I50.22 CHRONIC SYSTOLIC (CONGESTIVE) HEART FAIL 11/25/2015 SUZETTE COCHRAN MD, Ot 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 11/25/2015 SUZETTE COCHRAN MD Ot 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 11/25/2015 SUZETTE COCHRAN MD Ot R07.89 OTHER CHEST PAIN 11/25/2015 SUZETTE COCHRAN MD Ot 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 (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 11/25/2015 SUZETTE COCHRAN MD Ot Z95.1 PRESENCE OF AORTOCORONARY BYPASS GRAFT 07/23/2016 Ot 272.4 HYPERLIPIDEMIA NEC/NOS 07/23/2016 Ot 414.01 CORONARY ATHEROSCLEROSIS OF [place] CORON 07/23/2016 Ot 440.20 ATHEROSCLEROSIS [place] ARTERIES EXTREMIT 07/23/2016 Ot 998.12 HEMATOMA COMPLIC [...] 426.4 RT BUNDLE BRANCH BLOCK 07/23/2016 ROSITA CRUZ Ot V49.81 ASYMPT POSTMENOPAUSAL STATUS (AGE-RELATE 07/23/2016 [...] MD Ot I25.10 ATHSCL HEART DISEASE OF [place] CORONARY 01/18/2017 SUZETTE COCHRAN MD Ot 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 01/18/2017 SUZETTE COCHRAN MD Ot M79.7 FIBROMYALGIA 02/08/2017 SUZETTE COCHRAN MD Ot E78.2 MIXED HYPERLIPIDEMIA 02/08/2017 SUZETTE COCHRAN MD Ot I10 ESSENTIAL (PRIMARY) HYPERTENSION 02/08/2017 SUZETTE COCHRAN MD Ot I25.10 ATHSCL HEART DISEASE OF [place] CORONARY 02/08/2017 SUZETTE COCHRAN MD Ot 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 02/08/2017 SUZETTE COCHRAN MD Ot M79.7 FIBROMYALGIA 03/04/2017 SUZETTE COCHRAN MD Ot E78.2 MIXED HYPERLIPIDEMIA 03/04/2017 SUZETTE COCHRAN MD Ot I10 ESSENTIAL (PRIMARY) HYPERTENSION 03/04/2017 SUZETTE COCHRAN MD, Ot I25.10 ATHSCL HEART DISEASE OF [place] CORONARY 03/04/2017 SUZETTE COCHRAN MD Ot I65.23 [...] MD Ot I25.10 ATHSCL HEART DISEASE OF [place] CORONARY 01/09/2018 SUZETTE COCHRAN MD Ot 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 01/09/2018 SUZETTE COCHRAN MD Ot M79.7 FIBROMYALGIA 01/15/2018 SUZETTE COCHRAN MD Ot E78.5 HYPERLIPIDEMIA, UNSPECIFIED 01/15/2018 SUZETTE COCHRAN MD 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 01/15/2018 SUZETTE COCHRAN MD Ot I11.0 HYPERTENSIVE HEART DISEASE WITH HEART FA 01/15/2018 SUZETTE COCHRAN MD Ot I25.10 ATHSCL HEART DISEASE OF [place] CORONARY 01/15/2018 SUZETTE COCHRAN MD Ot I50.9 HEART FAILURE, UNSPECIFIED 02/04/2018 SUZETTE COCHRAN MD Ot E78.5 HYPERLIPIDEMIA, UNSPECIFIED 02/04/2018 SUZETTE COCHRAN MD 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 02/04/2018 SUZETTE COCHRAN MD Ot I11.0 HYPERTENSIVE HEART DISEASE WITH HEART FA 02/04/2018 SUZETTE COCHRAN MD Ot I25.10 ATHSCL HEART DISEASE OF [place] CORONARY 02/04/2018 SUZETTE COCHRAN MD Ot I50.9 HEART FAILURE, UNSPECIFIED 02/17/2018 SUZETTE COCHRAN MD Ot E78.5 HYPERLIPIDEMIA, UNSPECIFIED 02/17/2018 SUZETTE COCHRAN MD 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 02/17/2018 SUZETTE COCHRAN MD Ot I11.0 HYPERTENSIVE HEART DISEASE WITH HEART FA 02/17/2018 SUZETTE COCHRAN MD Ot I25.10 ATHSCL HEART DISEASE OF [place] CORONARY 02/17/2018 SUZETTE COCHRAN MD Ot I50.9 [...] MD, Ot I25.10 ATHSCL HEART DISEASE OF [place] CORONARY 05/13/2018 SUZETTE COCHRAN MD Ot 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 05/13/2018 SUZETTE COCHRAN MD Ot M79.7 FIBROMYALGIA 05/13/2018 SUZETTE COCHRAN MD Ot E78.5 HYPERLIPIDEMIA, UNSPECIFIED 05/13/2018 SUZETTE COCHRAN MD 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 05/13/2018 SUZETTE COCHRAN MD, Ot I11.0 HYPERTENSIVE HEART DISEASE WITH HEART FA 05/13/2018 SUZETTE COCHRAN MD, Ot I25.10 ATHSCL HEART DISEASE OF [place] CORONARY 05/13/2018 SUZETTE COCHRAN MD Ot I50.9 [...] MD, Ot I25.10 ATHSCL HEART DISEASE OF [place] CORONARY 05/13/2018 SUZETTE COCHRAN MD, Ot 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 05/13/2018 SUZETTE COCHRAN MD Ot M79.7 FIBROMYALGIA 05/13/2018 SUZETTE COCHRAN MD, Ot E78.5 HYPERLIPIDEMIA, UNSPECIFIED 05/13/2018 SUZETTE COCHRAN MD 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 05/13/2018 SUZETTE COCHRAN MD, Ot I11.0 HYPERTENSIVE HEART DISEASE WITH HEART FA 05/13/2018 SUZETTE COCHRAN MD, Ot I25.10 ATHSCL HEART DISEASE OF [place] CORONARY 05/13/2018 SUZETTE COCHRAN MD, Ot I50.9 HEART FAILURE, UNSPECIFIED Procedures Code Description Performed By Performed On 45.16 ESOPHAGOGASTRODUODENOSCOPY [ EGD] W/CLOSE 05/23/2012 05309 PSYCH DIAGNOSTIC EVALUATION 09/25/2012 59465 PSYTX PT&/FAMILY 45 MINUTES 11/20/2012 15412 PSYTX PT&/FAMILY 45 MINUTES 01/06/2013 91848 PSYTX PT&/FAMILY 45 MINUTES 03/05/2013 25019 SLEEP STUDY 04/10/2013 14732 PSYTX PT&/FAMILY 45 MINUTES 04/13/2013 84343 PSYTX PT&/FAMILY 45 MINUTES 05/01/2013 48832 PSYTX PT&/FAMILY 45 MINUTES 08/21/2013 09450 PSYTX PT&/FAMILY 45 MINUTES 09/08/2013 03983 PSYTX PT&/FAMILY 45 MINUTES 09/23/2013 53857 PSYTX PT&/FAMILY 45 MINUTES 11/10/2013 Results Test [...] hour urine protein measurement (mass/time) TNP 0-149 Complete blood count (CBC) with automated white blood cell (WBC) differential - 05/13/18 11:53 Blood leukocytes automated count (number/volume) 6.6 10*3/uL 4.3-11.0 Blood erythrocytes automated count (number/volume) 4.17 10*6/uL 4.35-5.85 Venous blood hemoglobin measurement (mass/volume) 13.9 g/dL 11.5-16.0 Blood hematocrit (volume fraction) 41 % 35-52 Automated erythrocyte mean corpuscular volume 98 [foz_us] 80-99 Automated erythrocyte mean corpuscular hemoglobin (mass per erythrocyte) 33 pg 25-34 Automated erythrocyte mean corpuscular hemoglobin concentration measurement ( mass/volume) 34 g/dL 32-36 Automated erythrocyte distribution width ratio 12.3 % 10.0-14.5 Automated blood platelet count (count/volume) 165 10*3/uL 130-400 Automated blood platelet mean volume measurement 11.3 [foz_us] 7.4-10.4 Automated blood neutrophils/100 leukocytes 70 % 42-75 Automated blood lymphocytes/100 leukocytes 22 % 12-44 Blood monocytes/100 leukocytes 6 % 0-12 Automated blood eosinophils/100 leukocytes 3 % 0-10 Automated blood basophils/100 leukocytes 0 % 0-10 Blood neutrophils automated count (number/volume) 4.6 10*3 1.8-7.8 Blood lymphocytes automated count (number/volume) 1.4 10*3 1.0-4.0 Blood monocytes automated count (number/volume) 0.4 10*3 0.0-1.0 Automated eosinophil count 0.2 10*3/uL 0.0-0.3 Automated blood basophil count (count/volume) 0.0 10*3/uL 0.0-0.1 Comprehensive metabolic panel - 05/13/18 11:53 Serum or plasma sodium measurement (moles/volume) 140 mmol/L 135-145 Serum or plasma potassium measurement (moles/volume) 3.6 mmol/L 3.6-5.0 Serum or plasma chloride measurement (moles/volume) 105 mmol/L 98-107 Carbon dioxide 22 mmol/L 21-32 Serum or plasma anion gap determination (moles/volume) 13 mmol/L 5-14 Serum or plasma urea nitrogen measurement (mass/volume) 11 mg/dL 7-18 Serum or plasma creatinine measurement (mass/volume) 1.39 mg/dL 0.60-1.30 Serum or plasma urea nitrogen/creatinine mass ratio 8 NRG Serum or plasma creatinine measurement with calculation of estimated glomerular filtration rate 37 NRG Serum or plasma glucose measurement (mass/volume) 117 mg/dL 70-105 Serum or plasma calcium measurement (mass/volume) 9.6 mg/dL 8.5-10.1 Serum or plasma total bilirubin measurement (mass/volume) 0.8 mg/dL 0.1-1.0 Serum or plasma alkaline phosphatase measurement (enzymatic activity/volume) 87 U/L 40-136 Serum or plasma aspartate aminotransferase measurement (enzymatic activity/ volume) 26 U/L 5-34 Serum or plasma alanine aminotransferase measurement (enzymatic activity/volume ) 16 U/L 0-55 Serum or plasma protein measurement (mass/volume) 6.8 g/dL 6.4-8.2 Serum or plasma albumin measurement (mass/volume) 4.0 g/dL 3.2-4.5 CALCIUM CORRECTED 9.6 mg/dL 8.5-10.1 Lipase - 05/13/18 11:53 Lipase 21 U/L 8-78 Encounters ACCT No. Visit Date/Time Discharge Status Pt. Type Provider Facility Loc./Unit Complaint [id number] 02/25/2014 15:48:00 02/25/2014 23:59:59 CLS Outpatient CODY RODRIGUEZ APRN [id number] 02/25/2014 15:48:00 02/25/2014 23:59:59 CLS Outpatient CODY RODRIGUEZ APRN [id number] 11/26/2013 09:48:00 11/26/2013 23:59:59 CLS Outpatient DAVID ALAN MD [id number] 11/10/2013 17:55:00 11/10/2013 23:59:59 CLS Outpatient ALCIDES SEPULVEDA PHD [id number] 09/22/2013 16:49:00 09/22/2013 23:59:59 CLS Outpatient ALCIDES SEPULVEDA PHD [id number] 09/08/2013 15:53:00 09/08/2013 23:59:59 CLS Outpatient ALCIDES SEPULVEDA PHD [id number] 08/21/2013 15:57:00 08/21/2013 23:59:59 CLS Outpatient ALCIDES SEPULVEDA PHD [id number] 08/20/2013 09:49:00 08/20/2013 23:59:59 CLS Outpatient DAVID ALAN MD [id number] 04/28/2013 15:54:00 04/28/2013 23:59:59 CLS Outpatient ALCIDES SEPULVEDA PHD [id number] 04/10/2013 14:55:00 04/10/2013 23:59:59 CLS Outpatient ALCIDES SEPULVEDA PHD [id number] 09/19/2012 11:27:00 09/19/2012 23:59:59 CLS Outpatient SOLEDAD MAYER DO [id number] 08/04/2012 14:29:00 08/04/2012 23:59:59 [place] [id number] 08/31/2011 14:27:00 08/31/2011 23:59:59 CLS Outpatient [id number] 08/31/2011 14:27:00 08/31/2011 23:59:59 CLS Outpatient [id number] 03/04/2013 14:49:00 Document Registration [id number] 01/06/2013 09:59:00 Document Registration [id number] 11/19/2012 12:48:00 Document Registration [id number] 02/17/2015 10:02:59 ACT Document Registration [id number] 01/13/2018 11:19:00 01/13/2018 23:59:59 CLS Outpatient SUZETTE COCHRAN MD [facility] CARD I25.10 CAD [id number] 01/17/2017 12:51:00 01/17/2017 23:59:59 CLS Outpatient SUZETTE COCHRAN MD [facility] CARD CAD I25.10 [id number] 09/05/2016 11:05:00 09/05/2016 23:59:59 CLS Outpatient MG DO ETHEL Hardy [facility] LAB N18.3 [id number] 09/21/2015 11:55:00 09/21/2015 18:55:00 DIS Outpatient SUZETTE COCHRAN MD [facility] CATH UNSTABLE ANGINA, CAD, HTN,HLP [id number] 02/17/2015 10:02:00 02/17/2015 23:59:59 CLS Outpatient ESA BETTS [facility] CARD CAD,CHF,MODESTA, HLP [id number] 06/15/2014 11:44:00 06/15/2014 23:59:59 CLS Outpatient ESA BETTS [facility] CARD CAD,CHF,HTN [id number] 05/08/2014 12:07:00 05/09/2014 13:15:00 DIS Inpatient SUZETTE COCHRAN MD [facility] CSD HYPOTENSION ATYPICAL CHEST PAIN [id number] 10/22/2013 09:21:00 10/22/2013 23:59:59 CLS Outpatient ROSITA CRUZ [facility] RAD SCREENING,POST MENAPAUSAL STATUS [id number] 06/09/2013 19:51:00 06/10/2013 06:25:00 DIS Outpatient RAY GAMBOA MD [facility] SLEEP KRISTAL [id number] 04/29/2013 20:58:00 04/30/2013 07:10:00 DIS Outpatient SOLEDAD MAYER DO [facility] SLEEP KRISTAL,INSOMNIA [id number] 04/01/2013 21:23:00 04/01/2013 23:28:00 DIS Emergency TRUDY LANGFORD [facility] ER FALL/RIGHT RING FINGER INJURY [id number] 03/19/2013 19:06:00 03/19/2013 23:59:59 CLS Outpatient [id number] 01/31/2013 11:45:00 01/31/2013 23:59:59 CLS Outpatient [id number] 05/13/2018 15:20:00 ACT Inpatient ANGELITO WAN DO [facility] ICU CECAL VOLVULUS,UTI [id number] 12/03/2016 00:00:00 Document Registration [id number] 09/19/2015 12:20:00 Document Registration [id number] 09/19/2015 12:20:00 Document Registration [id number] 09/10/2012 08:52:00 Document Registration [id number] 09/02/2012 10:25:00 Document Registration [id number] 05/21/2012 11:55:00 Document Registration [id number] 05/20/2012 08:59:00 Document Registration [id number] 04/25/2012 21:02:00 Document Registration [id number] 07/31/2011 13:00:00 Document Registration [id number] 07/31/2011 12:57:00 Document Registration [id number] 06/01/2011 09:17:00 Document Registration [id number] 04/26/2011 15:23:00 Document Registration [id number] 04/20/2011 06:50:00 Document Registration [id number] 03/06/2011 07:04:00 Document Registration [id number] 06/22/2010 09:22:00 Document Registration [id number] 05/09/2010 09:42:00 Document Registration [id number] 04/24/2010 06:30:00 Document Registration [id number] 03/30/2010 06:39:00 Document Registration [id number] 02/14/2018 08:00:00 02/14/2018 23:59:59 [facility] Outpatient JOSEP BALL LAC [facility]
--- OUTSIDE RECORDS SUMMARY | 2018-05-13 15:50 | XMS REPORT | Continuity of Care Document ---
Author Author [facility] Address Unknown Phone Unavailable Allergies Active Description Code Type Severity Reaction Onset Reported/Identified Relationship to Patient Clinical Status Yes cefadroxil [id number] Drug Allergy Unknown N/A 04/16/2008 Yes codeine [id number] Drug Allergy Unknown N/A 04/16/2008 Yes olanzapine [id number] Drug Allergy Unknown N/A 08/03/2008 Yes codeine [...] PF PSYCHIC FACTORS MED COND 05/05/2008 JENNIFER ETCH OPERATOR SEMICONDUCTOR WAFERS, CODY 296.30 MAJOR DEPRESSIVE AFFECTIVE DISORDER RECURRENT EPISODE UNSPECIFIED DEGREE 05/05/2008 JENNIFER ETCH OPERATOR SEMICONDUCTOR WAFERS, CODY 300.21 AN PANIC DIS W AGORA 05/05/2008 JENNIFER ETCH OPERATOR SEMICONDUCTOR WAFERS, CODY 307.47 SI DYSSOMNIA NOS 05/05/2008 JENNIFER ETCH OPERATOR SEMICONDUCTOR WAFERS, CODY 316 PF PSYCHIC FACTORS MED COND 05/05/2008 JENNIFER ETCH OPERATOR SEMICONDUCTOR WAFERS, CODY 296.30 MAJOR DEPRESSIVE AFFECTIVE DISORDER RECURRENT EPISODE UNSPECIFIED DEGREE 05/05/2008 JENNIFER ETCH OPERATOR SEMICONDUCTOR WAFERS, CODY 300.21 AN PANIC DIS W AGORA 05/05/2008 JENNIFER ETCH OPERATOR SEMICONDUCTOR WAFERS, CODY 307.47 SI DYSSOMNIA NOS 05/05/2008 JENNIFER ETCH OPERATOR SEMICONDUCTOR WAFERS, CODY 316 PF PSYCHIC FACTORS MED COND [...] NOS 04/20/2011 Ot 414.01 CORONARY ATHEROSCLEROSIS OF [place] CORON 04/20/2011 Ot 414.02 CORON ATHEROSCLEROSIS AUTOLOG [...] NOS 09/10/2012 Ot 414.01 CORONARY ATHEROSCLEROSIS OF [place] CORON 09/10/2012 Ot 414.02 CORON ATHEROSCLEROSIS AUTOLOG [...] MD Ot I25.10 ATHSCL HEART DISEASE OF [place] CORONARY 09/21/2015 SUZETTE COCHRAN MD Ot I25.82 [...] 09/21/2015 SUZETTE COCHRAN MD Ot Z79.899 OTHER S3B MULTI SENSOR OPERATOR (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 09/21/2015 SUZETTE COCHRAN MD [...] NEC/NOS 11/18/2015 Ot 414.01 CORONARY ATHEROSCLEROSIS OF [place] CORON 11/18/2015 Ot 440.20 ATHEROSCLEROSIS [place] ARTERIES EXTREMIT 11/18/2015 Ot 998.12 HEMATOMA COMPLIC [...] RT BUNDLE BRANCH BLOCK 11/18/2015 ROSITA CRUZ CHAIN SAW OPERATOR Ot V49.81 ASYMPT POSTMENOPAUSAL STATUS (AGE-RELATE 11/18/2015 ROSITA CRUZ CHAIN SAW OPERATOR Ot V76.12 OTH SCREEN MAMMO-MALIGN NEOPLASM OF [...] MD, Ot I25.10 ATHSCL HEART DISEASE OF [place] CORONARY 11/25/2015 SUZETTE COCHRAN MD, Ot I25.82 [...] 11/25/2015 SUZETTE COCHRAN MD Ot Z79.899 OTHER S3B MULTI SENSOR OPERATOR (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 11/25/2015 SUZETTE COCHRAN MD Ot Z95.1 PRESENCE OF AORTOCORONARY BYPASS GRAFT 07/23/2016 Ot 272.4 HYPERLIPIDEMIA NEC/NOS 07/23/2016 Ot 414.01 CORONARY ATHEROSCLEROSIS OF [place] CORON 07/23/2016 Ot 440.20 ATHEROSCLEROSIS [place] ARTERIES EXTREMIT 07/23/2016 Ot 998.12 HEMATOMA COMPLIC [...] MD Ot I25.10 ATHSCL HEART DISEASE OF [place] CORONARY 01/18/2017 SUZETTE COCHRAN MD Ot 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 01/18/2017 SUZETTE COCHRAN MD Ot M79.7 FIBROMYALGIA 02/08/2017 SUZETTE COCHRAN MD Ot E78.2 MIXED HYPERLIPIDEMIA 02/08/2017 SUZETTE COCHRAN MD Ot I10 ESSENTIAL (PRIMARY) HYPERTENSION 02/08/2017 SUZETTE COCHRAN MD Ot I25.10 ATHSCL HEART DISEASE OF [place] CORONARY 02/08/2017 SUZETTE COCHRAN MD Ot 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 02/08/2017 SUZETTE COCHRAN MD Ot M79.7 FIBROMYALGIA 03/04/2017 SUZETTE COCHRAN MD Ot E78.2 MIXED HYPERLIPIDEMIA 03/04/2017 SUZETTE COCHRAN MD Ot I10 ESSENTIAL (PRIMARY) HYPERTENSION 03/04/2017 SUZETTE COCHRAN MD, Ot I25.10 ATHSCL HEART DISEASE OF [place] CORONARY 03/04/2017 SUZETTE COCHRAN MD Ot I65.23 [...] MD Ot I25.10 ATHSCL HEART DISEASE OF [place] CORONARY 01/09/2018 SUZETTE COCHRAN MD Ot 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 01/09/2018 SUZETTE COCHRAN MD Ot M79.7 FIBROMYALGIA 01/15/2018 SUZETTE COCHRAN MD Ot E78.5 HYPERLIPIDEMIA, UNSPECIFIED 01/15/2018 SUZETTE COCHRAN MD 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 01/15/2018 SUZETTE COCHRAN MD Ot I11.0 HYPERTENSIVE HEART DISEASE WITH HEART FA 01/15/2018 SUZETTE COCHRAN MD Ot I25.10 ATHSCL HEART DISEASE OF [place] CORONARY 01/15/2018 SUZETTE COCHRAN MD Ot I50.9 HEART FAILURE, UNSPECIFIED 02/04/2018 SUZETTE COCHRAN MD Ot E78.5 HYPERLIPIDEMIA, UNSPECIFIED 02/04/2018 SUZETTE COCHRAN MD 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 02/04/2018 SUZETTE COCHRAN MD Ot I11.0 HYPERTENSIVE HEART DISEASE WITH HEART FA 02/04/2018 SUZETTE COCHRAN MD Ot I25.10 ATHSCL HEART DISEASE OF [place] CORONARY 02/04/2018 SUZETTE COCHRAN MD Ot I50.9 HEART FAILURE, UNSPECIFIED 02/17/2018 SUZETTE COCHRAN MD Ot E78.5 HYPERLIPIDEMIA, UNSPECIFIED 02/17/2018 SUZETTE COCHRAN MD 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 02/17/2018 SUZETTE COCHRAN MD Ot I11.0 HYPERTENSIVE HEART DISEASE WITH HEART FA 02/17/2018 SUZETTE COCHRAN MD Ot I25.10 ATHSCL HEART DISEASE OF [place] CORONARY 02/17/2018 SUZETTE COCHRAN MD Ot I50.9 [...] MD, Ot I25.10 ATHSCL HEART DISEASE OF [place] CORONARY 05/13/2018 SUZETTE COCHRAN MD Ot 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 05/13/2018 SUZETTE COCHRAN MD Ot M79.7 FIBROMYALGIA 05/13/2018 SUZETTE COCHRAN MD Ot E78.5 HYPERLIPIDEMIA, UNSPECIFIED 05/13/2018 SUZETTE COCHRAN MD 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 05/13/2018 SUZETTE COCHRAN MD, Ot I11.0 HYPERTENSIVE HEART DISEASE WITH HEART FA 05/13/2018 SUZETTE COCHRAN MD, Ot I25.10 ATHSCL HEART DISEASE OF [place] CORONARY 05/13/2018 SUZETTE COCHRAN MD Ot I50.9 [...] MD, Ot I25.10 ATHSCL HEART DISEASE OF [place] CORONARY 05/13/2018 SUZETTE COCHRAN MD, Ot 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 05/13/2018 SUZETTE COCHRAN MD Ot M79.7 FIBROMYALGIA 05/13/2018 SUZETTE COCHRAN MD, Ot E78.5 HYPERLIPIDEMIA, UNSPECIFIED 05/13/2018 SUZETTE COCHRAN MD 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 05/13/2018 SUZETTE COCHRAN MD, Ot I11.0 HYPERTENSIVE HEART DISEASE WITH HEART FA 05/13/2018 SUZETTE COCHRAN MD, Ot I25.10 ATHSCL HEART DISEASE OF [place] CORONARY 05/13/2018 SUZETTE COCHRAN MD, Ot I50.9 HEART FAILURE, UNSPECIFIED Procedures Code Description Performed By Performed On 45.16 ESOPHAGOGASTRODUODENOSCOPY [ EGD] W/CLOSE 05/23/2012 96871 PSYCH DIAGNOSTIC EVALUATION 09/25/2012 92344 PSYTX PT&/FAMILY 45 MINUTES 11/20/2012 44146 PSYTX PT&/FAMILY 45 MINUTES 01/06/2013 05842 PSYTX PT&/FAMILY 45 MINUTES 03/05/2013 02393 SLEEP STUDY 04/10/2013 94638 PSYTX PT&/FAMILY 45 MINUTES 04/13/2013 17881 PSYTX PT&/FAMILY 45 MINUTES 05/01/2013 78140 PSYTX PT&/FAMILY 45 MINUTES 08/21/2013 10277 PSYTX PT&/FAMILY 45 MINUTES 09/08/2013 65334 PSYTX PT&/FAMILY 45 MINUTES 09/23/2013 48278 PSYTX PT&/FAMILY 45 MINUTES 11/10/2013 Results Test [...] Status Pt. Type Provider Facility Loc./Unit Complaint [id number] 02/25/2014 15:48:00 02/25/2014 23:59:59 CLS Outpatient CODY RODRIGUEZ APRN [id number] 02/25/2014 15:48:00 02/25/2014 23:59:59 CLS Outpatient CODY RODRIGUEZ APRN [id number] 11/26/2013 09:48:00 11/26/2013 23:59:59 CLS Outpatient DAVID ALAN MD [id number] 11/10/2013 17:55:00 11/10/2013 23:59:59 CLS Outpatient ALCIDES SEPULVEDA PHD [id number] 09/22/2013 16:49:00 09/22/2013 23:59:59 CLS Outpatient ALCIDES SEPULVEDA PHD [id number] 09/08/2013 15:53:00 09/08/2013 23:59:59 CLS Outpatient ALCIDES SEPULVEDA PHD [id number] 08/21/2013 15:57:00 08/21/2013 23:59:59 CLS Outpatient ALCIDES SEPULVEDA PHD [id number] 08/20/2013 09:49:00 08/20/2013 23:59:59 CLS Outpatient DAVID ALAN MD [id number] 04/28/2013 15:54:00 04/28/2013 23:59:59 CLS Outpatient ALCIDES SEPULVEDA PHD [id number] 04/10/2013 14:55:00 04/10/2013 23:59:59 CLS Outpatient ALCIDES SEPULVEDA PHD [id number] 09/19/2012 11:27:00 09/19/2012 23:59:59 CLS Outpatient SOLEDAD MAYER DO [id number] 08/04/2012 14:29:00 08/04/2012 23:59:59 [place] [id number] 08/31/2011 14:27:00 08/31/2011 23:59:59 CLS Outpatient [id number] 08/31/2011 14:27:00 08/31/2011 23:59:59 CLS Outpatient [id number] 03/04/2013 14:49:00 Document Registration [id number] 01/06/2013 09:59:00 Document Registration [id number] 11/19/2012 12:48:00 Document Registration [id number] 02/17/2015 10:02:59 ACT Document Registration [id number] 01/13/2018 11:19:00 01/13/2018 23:59:59 CLS Outpatient SUZETTE COCHRAN MD [facility] CARD I25.10 CAD [id number] 01/17/2017 12:51:00 01/17/2017 23:59:59 CLS Outpatient SUZETTE COCHRAN MD [facility] CARD CAD I25.10 [id number] 09/05/2016 11:05:00 09/05/2016 23:59:59 CLS Outpatient MG DO ETHEL Hardy [facility] LAB N18.3 [id number] 09/21/2015 11:55:00 09/21/2015 18:55:00 DIS Outpatient SUZETTE COCHRAN MD [facility] CATH UNSTABLE ANGINA, CAD, HTN,HLP [id number] 02/17/2015 10:02:00 02/17/2015 23:59:59 CLS Outpatient ESA BETTS [facility] CARD CAD,CHF,MODESTA, HLP [id number] 06/15/2014 11:44:00 06/15/2014 23:59:59 CLS Outpatient ESA BETTS [facility] CARD CAD,CHF,HTN [id number] 05/08/2014 12:07:00 05/09/2014 13:15:00 DIS Inpatient SUZETTE COCHRAN MD [facility] CSD HYPOTENSION ATYPICAL CHEST PAIN [id number] 10/22/2013 09:21:00 10/22/2013 23:59:59 CLS Outpatient ROSITA CRUZ [facility] RAD SCREENING,POST MENAPAUSAL STATUS [id number] 06/09/2013 19:51:00 06/10/2013 06:25:00 DIS Outpatient RAY GAMBOA MD [facility] SLEEP KRISTAL [id number] 04/29/2013 20:58:00 04/30/2013 07:10:00 DIS Outpatient SOLEDAD MAYER DO [facility] SLEEP KRISTAL,INSOMNIA [id number] 04/01/2013 21:23:00 04/01/2013 23:28:00 DIS Emergency TRUDY LANGFORD [facility] ER FALL/RIGHT RING FINGER INJURY [id number] 03/19/2013 19:06:00 03/19/2013 23:59:59 CLS Outpatient [id number] 01/31/2013 11:45:00 01/31/2013 23:59:59 CLS Outpatient [id number] 05/13/2018 15:20:00 ACT Inpatient ANGELITO WAN DO [facility] ICU CECAL VOLVULUS,UTI [id number] 12/03/2016 00:00:00 Document Registration [id number] 09/19/2015 12:20:00 Document Registration [id number] 09/19/2015 12:20:00 Document Registration [id number] 09/10/2012 08:52:00 Document Registration [id number] 09/02/2012 10:25:00 Document Registration [id number] 05/21/2012 11:55:00 Document Registration [id number] 05/20/2012 08:59:00 Document Registration [id number] 04/25/2012 21:02:00 Document Registration [id number] 07/31/2011 13:00:00 Document Registration [id number] 07/31/2011 12:57:00 Document Registration [id number] 06/01/2011 09:17:00 Document Registration [id number] 04/26/2011 15:23:00 Document Registration [id number] 04/20/2011 06:50:00 Document Registration [id number] 03/06/2011 07:04:00 Document Registration [id number] 06/22/2010 09:22:00 Document Registration [id number] 05/09/2010 09:42:00 Document Registration [id number] 04/24/2010 06:30:00 Document Registration [id number] 03/30/2010 06:39:00 Document Registration [id number] 02/14/2018 08:00:00 02/14/2018 23:59:59 [facility] Outpatient JOSEP BALL [facility]
[2018-05-13] MEDS ORDERED: fentaNYL INJECTION 100 MCG/2 ML AMP ONE (15:52)
[2018-05-13] MEDS ORDERED: MIDAZOLAM 2 MG/2 ML (VERSED) VIAL ONE (15:53)
--- NOTE | 2018-05-13 16:10 | Consultation-Hospitalist ---
HPI History of Present Illness: HPI/Chief Complaint Pt is a 72yoCF with a PMH of IBS, CAD s/p CABG, CKD stage 3 who presented to the ER for evaluation of abdominal pain. She states symptoms started yesterday at 1130am with severe cramping pain that she rated 10/10. She awoke at midnight with diarrhea and then has not passed any stool or gas since then. Her pain persisted still and she decided to seek care in the ER where she was found to have a cecal volvulus with high grade obstruction. She was admitted to general surgery to the OR and I am consulted for medical management. She states she has a history of CAD s/p CABG x4 with 2 failed one that required stenting. She denies any chest pain or SOB at this time. Source: patient Exam Limitations: no limitations Date Seen 05/13/18 Attending Physician Ata Bello DO PCP Paramjit Grove DO Referring Physician Date of Admission May 13, 2018 at 15:20 Home Medications & Allergies Home Medications Reviewed patient Home Medication Reconciliation performed by pharmacy medication reconciliations indoor plant technician and/or nursing. Patients Allergies have been reviewed. Allergies Allergies Coded Allergies codeine (Verified Allergy, Unknown, 05/13/18) nausea/faints olanzapine (Verified Allergy, Unknown, 08/03/08) cefadroxil (Verified Adverse Reaction, Mild, MAKES HER DIZZY AND FAINTS, 05/15) faints Past Jfwrqcs-Cucnmf-Ukzpqm Hx Past Med/Social Hx: Reviewed Nursing Past Med/Soc Hx Patient Social History Alcohol Use: Denies Use Recreational Drug Use: No Smoking Status: Never a Smoker 2nd Hand Smoke Exposure: No Recent Foreign Travel: No Contact w/other who traveled: No Recent Hopitalizations: Yes Recent Infectious Disease Expo: No Immunizations Up To Date Date of Pneumonia Vaccine: Mar 31, 2013 Date of Influenza Vaccine: Apr 26, 2015 Seasonal Allergies Seasonal Allergies: No Past Medical History Surgeries: Abdominal (hital hernia), CABG, Hysterectomy Cardiac: Coronary Artery Disease, High Cholesterol, Hypertension 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: No Hysterectomy Genitourinary: Bladder Infection, UTI-Chronic Gastrointestinal: Diverticulosis, Irritable Bowel Musculoskeletal: Arthritis, Fibromyalgia Endocrine: Hypothyroidsim HEENT: Cataract Loss of Vision: Denies Psychosocial: Anxiety, Depression History of Blood Disorders: No Family History Reviewed Nursing Family Hx Alzheimer's disease (mother) Cardiovascular disease (mother and father) Carotid artery stenosis (father) Hypercholesterolemia (mother and father) Hypertension Myocardial infarction (mother and father) No Pertinent Family Hx Review of Systems Constitutional: No chills, No fever EENTM: No blurred vision, No double vision, No nose congestion, No throat pain Respiratory: No cough, No dyspnea on exertion, No short of breath Cardiovascular: No chest pain, No edema, No palpitations Gastrointestinal: see HPI, abdominal pain, diarrhea, nausea; No vomiting Genitourinary: No dysuria, No frequency Musculoskeletal: No joint pain, No muscle pain Skin: No lesions, No rash Psychiatric/Neurological: Denies Headache, Denies Numbness, Denies Tingling Physical Exam Physical Exam Vital Signs Vital Signs - First Documented 05/13/18 05/13/18 11:40 20:20 Temp 97.6 Pulse 68 Resp 16 B/P (MAP) 110/76 (87) Pulse Ox 100 O2 Delivery Room Air O2 Flow Rate 2.00 Capillary Refill : Less Than 3 Seconds Height, Weight, BMI Height: 5'3.00" Weight: 139lbs. 0.0oz. 63.357729my; 23.46 BMI Method:Stated General Appearance: No Apparent Distress, WD/WN HEENT: PERRL/EOMI, Moist Mucous Membranes Neck: Non Tender, Supple Respiratory: Lungs Clear, No Respiratory Distress Cardiovascular: Regular Rate, Rhythm, No Murmur Gastrointestinal: Abnormal Bowel Sounds (quiet), Distended, Tenderness Extremity: Normal Capillary Refill, No Calf Tenderness Neurologic/Psychiatric: Alert, Oriented x3, Normal Mood/Affect Skin: Normal Color, Warm/Dry Results Results/Procedures Labs Laboratory Tests 05/16/18 05:00 05/16/18 05:10 Patient resulted labs reviewed. Imaging: Reviewed Imaging Films, Reviewed Imaging Report Assessment/Plan Assessment and Plan Assess & Plan/Chief Complaint Cecal volvulus Diagnosis/Problems Diagnosis/Problems (1) Cecal volvulus Status: Acute Assessment & Plan: Plan for OR this evening Management per primary Per NSQIP calculator Risk is 0.6% for cardiac complication and 13.1% for any complication Appears to be medically optimized for surgery (2) Small bowel obstruction Status: Acute Assessment & Plan: Plan for OR today Management per primary (3) CAD (coronary artery disease) Status: Chronic Assessment & Plan: Dr Waters consulted, discussed case with him today NPO for OR Qualifiers: Coronary Disease-Associated Artery/Lesion type: bypass graft [place] vs. transplanted heart: [place] heart Associated angina: without angina Qualified Codes: I25.810 - Atherosclerosis of coronary artery bypass graft(s) without angina pectoris (4) Urinary tract infection Status: Acute Assessment & Plan: Culture pending No sepsis criteria met Levaquin given in ER Qualifiers: Urinary tract infection type: acute cystitis Hematuria presence: without hematuria Qualified Codes: N30.00 - Acute cystitis without hematuria (5) Essential (primary) hypertension Assessment & Plan: Well controlled currently Trend (6) CKD (chronic kidney disease) stage 3, GFR 30-59 ml/min Assessment & Plan: Cocoa Bean Roaster Helper 1.39 which appears to be at baseline Continue IVF KEVIN ALCARAZ MD May 13, 2018 4:10 pm
--- NOTE | 2018-05-13 16:24 | History & Physical-Surgical ---
History of Present Illness History of Present Illness Reason for visit/HPI Seen and evaluated in emergency dept. CC: abdominal pain. Patient is a 72-year-old female who yesterday began having severe cramping pain that would come and go. Patient states that her pain would be extremely severe at a 10 out of 10. She states that movement with sometimes makes the pain worse. Nothing was really making it better. Patient was having diarrhea and then unable to go have a bowel movement. Patient has had lots of IBS issues in the past she states. She's never had symptoms like this though in terms of severity. As noted above her pain is cramping type pain. No radiation. The pain is located in the right side of her abdomen up into the epigastric region. She had a CT scan that I reviewed that is consistent with a cecal volvulus. Date of Admission May 13, 2018 at 15:20 Date Seen by a Provider: May 13, 2018 Time Seen by a Provider: 16:23 I consulted on this patient on 05/13/18 16:18 Attending Physician Angelito Bello DO Admitting Physician Paramjit Grove DO Consult Allergies and Home Medications Allergies Coded Allergies: cefadroxil (Verified Allergy, Unknown, 04/16/08) codeine (Verified Allergy, Unknown, 04/16/08) olanzapine (Verified Allergy, Unknown, 08/03/08) Home Medications Aspirin 81 Mg Tabec, 81 MG PO HS PRN for FLUSHING, (Reported) Atorvastatin Calcium 80 Mg Tablet, 80 MG PO HS, (Reported) Brexpiprazole 0.5 Mg Tablet, 0.5 MG PO HS, (Reported) Cholecalciferol 1,000 Unit Capsule, 2,000 UNIT PO BID, (Reported) TAKES 2 (1000 UNIT) CAPSULES Colestipol Hcl,Micronized 1 Gm Tablet, 1 GM PO BID, (Reported) Cyanocobalamin (Vitamin B-12) 2,500 Mcg Tab.subl, 2,500 MCG SL DAILY, (Reported) Digoxin 250 Mcg Tablet, 250 MCG PO HS, (Reported) Duloxetine Hcl 60 Mg Capsule.dr, 60 MG PO BID, (Reported) Gabapentin 300 Mg Cap, 300 MG PO BID, (Reported) Levothyroxine Sodium 88 Mcg Tablet, 88 MCG PO HS, (Reported) Metoprolol Tartrate 25 Mg Tablet, 25 MG PO BID, (Reported) Mv,Ca,Iron,Min/FA/Phytosterol 1 Each Tablet, 1 TAB PO BID, (Reported) Niacin 1,000 Mg Tab.er.24h, 1,000 MG PO HS, (Reported) [place]-3 Acid Ethyl Esters 1 Gm Capsule, 2 GM PO BID, (Reported) TAKES 2 (1 GM) CAPSULES Triamcinolone Acet 15 Gm Cr, TP BID, (Reported) APPLY TO LEG 0.5% Patient Home Medication List Home Medication List Reviewed: Yes Past Umphtaq-Emuupy-Rajxuh Hx Patient Social History Alcohol Use: Denies Use Recreational Drug Use: No Smoking Status: Never a Smoker 2nd Hand Smoke Exposure: No Recent Foreign Travel: No Contact w/Someone Who Travel: No Recent Infectious Disease Expo: No Recent Hopitalizations: Yes Immunizations Up To Date Date of Pneumonia Vaccine: Mar 31, 2013 Date of Influenza Vaccine: Apr 26, 2015 Seasonal Allergies Seasonal Allergies: No Surgeries History of Surgeries: Yes (Hiatal Hernia, Breast BX, Bladder surgery x 3 (had mesh sling, tie up, ) Surgeries: CABG, Hysterectomy Respiratory History of Respiratory Disorde: No Respiratory Disorders: Sleep Apnea Cardiovascular History of Cardiac Disorders: Yes Cardiac Disorders: Coronary Artery Disease, High Cholesterol, Hypertension Neurological History of Neurological Disord: No 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 System Hx 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 Disorders: 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 Genitourinary Genitourinary Disorders: Bladder Infection, UTI-Chronic Gastrointestinal History of Gastrointestinal Di: Yes Gastrointestinal Disorders: Diverticulosis, Irritable Bowel Musculoskeletal History of Musculoskeletal Dis: Yes Musculoskeletal Disorders: Arthritis, Fibromyalgia Endocrine History of Endocrine Disorders: Yes Endocrine Disorders: Hypothyroidsim HEENT HEENT Disorders: Cataract Loss of Vision: Denies Cancer History of Cancer: No Psychosocial History of Psychiatric Problem: Yes Behavioral Health Disorders: Anxiety, Depression Integumentary History of Skin or Integumenta: No Blood Transfusions History of Blood Disorders: No Family Medical History Significant Family History: No Pertinent Family Hx Family Medial History: Alzheimer's disease (mother) Cardiovascular disease (mother and father) Carotid artery stenosis (father) Hypercholesterolemia (mother and father) Hypertension Myocardial infarction (mother and father) Review of Systems Constitutional: no symptoms reported EENTM: no symptoms reported Respiratory: no symptoms reported Cardiovascular: no symptoms reported Gastrointestinal: see HPI Genitourinary: no symptoms reported Musculoskeletal: no symptoms reported Skin: no symptoms reported Psychiatric/Neurological: No Symptoms Reported Physical Exam Vital Signs Vital Signs - First Documented 05/13/18 11:40 Temp 97.6 Pulse 68 Resp 16 B/P (MAP) 110/76 (87) Pulse Ox 100 O2 Delivery Room Air Capillary Refill : Less Than 3 Seconds Height, Weight, BMI Height: 5'3.00" Weight: 139lbs. 0.0oz. [id number]; 23.46 BMI Method:Stated General Appearance: No Apparent Distress HEENT: PERRL/EOMI, Normal ENT Inspection Neck: Normal Inspection Respiratory: Chest Non Tender, No Accessory Muscle Use, No Respiratory Distress Cardiovascular: Regular Rate, Rhythm Gastrointestinal: Tenderness (right side of abdomen including epigastric, slight distention) Back: Normal Inspection Extremity: Non Tender Neurologic/Psychiatric: Alert, Oriented x3, No Motor/Sensory Deficits, shipping processor II- XII Norm as Tested Skin: Normal Color, Warm/Dry Lymphatic: No Adenopathy Data Review Labs Laboratory Tests 05/13/18 11:53: White Blood Count 6.6, Red Blood Count 4.17L, Hemoglobin 13.9, Hematocrit 41, Mean Corpuscular Volume 98, Mean Corpuscular Hemoglobin 33, Mean Corpuscular Hemoglobin Concent 34, Red Cell Distribution Width 12.3, Platelet Count 165, Mean Platelet Volume 11.3H, Neutrophils (%) (Auto) 70, Lymphocytes (%) (Auto) 22 , Monocytes (%) (Auto) 6, Eosinophils (%) (Auto) 3, Basophils (%) (Auto) 0, Neutrophils # (Auto) 4.6, Lymphocytes # (Auto) 1.4, Monocytes # (Auto) 0.4, Eosinophils # (Auto) 0.2, Basophils # (Auto) 0.0, Sodium Level 140, Potassium Level 3.6, Chloride Level 105, Carbon Dioxide Level 22, Anion Gap 13, Blood Urea Nitrogen 11, Creatinine 1.39H, Estimat Glomerular Filtration Rate 37, BUN/ Creatinine Ratio 8, Glucose Level 117H, Calcium Level 9.6, Corrected Calcium 9.6 , Total Bilirubin 0.8, Aspartate Amino Transf (AST/SGOT) 26, Alanine Aminotransferase (ALT/SGPT) 16, Alkaline Phosphatase 87, Total Protein 6.8, Albumin 4.0, Lipase 21 05/13/18 12:48: Urine Color YELLOW, Urine Clarity VERY CLOUDYH, Urine pH 5, Urine Specific Gerald 1.015L, Urine Protein NEGATIVE, Urine Glucose (UA) NEGATIVE, Urine Ketones NEGATIVE, Urine Nitrite POSITIVEH, Urine Bilirubin NEGATIVE, Urine Urobilinogen NORMAL, Urine Leukocyte Esterase 2+H, Urine RBC (Auto) NEGATIVE, Urine RBC NONE, Urine WBC 50-100H, Urine Squamous Epithelial Cells RARE, Urine Crystals NONE, Urine Bacteria LARGEH, Urine Casts NONE, Urine Mucus NEGATIVE, Urine Culture Indicated YES Assessment/Plan Assessment/Plan Admission Diagonsis abdominal pain, right side and epigastric cecal volvulus cad patient with cecal volvulus, abdominal distention and pain. Discuss need for exploratory laparotomy and colon resection due to the bowel with possibility of being compromised. She understands all risks and benefits and wishes to proceed. Patient to go to the OR. Nothing by mouth. Preoperative antibiotics. Obtain consent. Admission Status: Inpatient Order (span 2 midnights) Reason for Inpatient Admission: patient to have surgery and will need supportive measures that stay is expected to stay over 2 midnights. Assessment/Plan abdominal pain, right side and epigastric cecal volvulus cad patient with cecal volvulus, abdominal distention and pain. Discuss need for exploratory laparotomy and colon resection due to the bowel with possibility of being compromised. She understands all risks and benefits and wishes to proceed. Patient to go to the OR. Nothing by mouth. Preoperative antibiotics. Obtain consent. ANGELITO BELLO DO May 13, 2018 16:24
[2018-05-13] MEDS ORDERED: LACTATED RINGERS 1,000 ML IV SCH (16:45)
[2018-05-13] MEDS ORDERED: ceFAZolin INJECTION 1,000 MG in NS (IVPB) 50 ML IV NR (16:45)
[2018-05-13] MEDS ORDERED: metroNIDAZOLE 500MG/100ML IVPB IV NR (16:45)
[2018-05-13] MEDS ORDERED: fentaNYL INJECTION 100 MCG/2 ML AMP IVP ONE ×2 (17:15→19:30)
[2018-05-13] MEDS: LACTATED RINGERS 1,000 ML IV PRN ×2 (17:27→18:35)
[2018-05-13] MEDS ORDERED: ceFAZolin 1,000 MG/10 ML (ANCEF) VIAL ONE (17:36)
[2018-05-13] MEDS ORDERED: metroNIDAZOLE 500MG/100ML IVPB 100 ML ONE (17:36)
[2018-05-13] MEDS ORDERED: ONDANSETRON 4 MG/2 ML (SDV) Z0FRAN ONE ×2 (18:16→18:18)
[2018-05-13] MEDS ORDERED: morphine INJ 10 MG/ML 1ML (SYR OR VIAL) ONE (18:16)
[2018-05-13] MEDS ORDERED: ISOFLURANE (FORANE) 15 ML/15 MIN INHALATION ONE ×2 (18:18→18:31)
[2018-05-13] MEDS ORDERED: BUPIVACAINE 0.5% 30 ML (SENSORCAINE) VIAL ONE (18:18)
[2018-05-13] MEDS ORDERED: proPOfol 200 MG/20 ML (DIPRIVAN) VIAL IV ONE (18:18)
[2018-05-13] MEDS ORDERED: LIDOCAINE PF 2% 5 ML (XYLOCAINE) VIAL ONE (18:18)
[2018-05-13] MEDS ORDERED: NEOSTIGMINE 1 MG/ML 5 ML SYRINGE ONE (18:32)
[2018-05-13] MEDS ORDERED: SUCCINYLCHOLINE INJ 100 MG/5 ML SYR ONE (18:32)
[2018-05-13] MEDS ORDERED: GLYCOPYRROLATE 0.2 MG/ML (ROBINUL) 2 ML VIAL ONE (18:32)
[2018-05-13] MEDS ORDERED: ROCURONIUM 10 MG/ML 5 ML SYRINGE IV ONE (18:32)
[2018-05-13] MEDS: LACTATED RINGERS 1,000 ML IV SCH (18:53)
--- NOTE | 2018-05-13 18:57 | Progress Note-Post Operative ---
Post-Operative Progess Note Surgeon (s)/Fitting Room Operator (s) Surgeon ANGELITO WAN DO Fitting Room Operator: Dr. 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
[2018-05-13] MEDS ORDERED: ceFAZolin INJECTION 1,000 MG in NS (IVPB) 50 ML IV SCH (19:00)
[2018-05-13] MEDS ORDERED: ONDANSETRON 4 MG/2 ML (SDV) Z0FRAN IVP PRN ×2 (19:00→19:30)
[2018-05-13] MEDS ORDERED: metroNIDAZOLE 500MG/100ML IVPB 100 ML IV SCH (19:00)
[2018-05-13] MEDS ORDERED: MEPERIDINE (DEMEROL) INJ 50 MG/ML IVP ONE (19:30)
[2018-05-13] MEDS ORDERED: KETOROLAC 30 MG/ML VIAL IVP ONE (19:30)
[2018-05-13] MEDS ORDERED: morphine INJ 10 MG/ML 1ML (SYR OR VIAL) IVP ONE (19:30)
[2018-05-13 20:20] VITALS: BP 106/56
[2018-05-13 20:30] VITALS: BP 111/66
[2018-05-13 20:45] VITALS: BP 100/52
[2018-05-13 21:00] VITALS: BP 91/55
[2018-05-13 22:00] VITALS: BP 92/51
--- NOTE | 2018-05-13 22:35 | OPERATIVE REPORT ---
DATE OF SERVICE: 05/13/2018 PREOPERATIVE DIAGNOSIS: Cecal volvulus. POSTOPERATIVE DIAGNOSES: Cecal volvulus, spigelian hernia. PROCEDURE: Exploratory laparotomy with right colon resection with mobilization of hepatic flexure. Primary repair of spigelian hernia. SURGEON: Angelito Bello D.O. ROSE GRADING SUPERVISOR: Dr. Leal, assisted in retraction, dissection and closure. ANESTHESIA: General. ESTIMATED BLOOD LOSS: 100 mL. COMPLICATIONS: None. INDICATIONS: The patient is a 72-year-old female, who presented to Emergency Department with abdominal pain and studies consistent with cecal volvulus. She understands risks and benefits of procedure and wished to proceed with procedure. Consent was signed in the chart. DESCRIPTION OF PROCEDURE: The patient was taken to the operating suite. She was prepped and draped in sterile fashion. Surgical pause was performed. A midline incision was made and cautery was used to score down to the fascia, which was then scored and opened. The abdomen was then opened completely. There were some adhesions up to the liver of omentum. The colon was significantly dilated and consistent with cecal volvulus. This was then untwisted. A dissection was made around the terminal ileum and a DARIN-75 blue stapler was fired across the ileum, using a ligature this was gone across the mesentery of the colon and then mobilizing the colon along the right gutter along the white line of Toldt and mobilizing the hepatic flexure. The transverse colon was then identified where it was nondilated. The colon was dissected around and the DARIN stapler was then fired across the colon. Using the LigaSure, this was used to remove the remainder of the mesentery and specimen was obtained. The small bowel was then ran from ligament of Treitz all the way to the transection point with no further pathology identified. A [id number] anastomosis was then created. Using 3-0 Vicryl for reinforcement, also putting a crotch stitch. The mesentery was closed using 3-0 Vicryl. The abdomen was washed and suctioned with copious amounts of irrigation. Hemostasis had been achieved. The spigelian hernia was identified. The contents were reduced using 0 Vicryl, this was primarily closed. The fascia was then closed using 1-0 looped PDS in a running fashion. The wound was then irrigated and dried. The skin was then closed using gisella. The abdomen was then washed and dried and sterile bandage was applied. The patient tolerated procedure well without any complications. She was taken to the recovery room in stable condition. Job ID: [id number] DocumentID: [id number] Dictated Date: 05/13/2018 19:12:06 Assistant Strength Coach Date: 05/13/2018 22:34:45 Dictated By: ANGELITO BELLO DO
[2018-05-13 23:00] VITALS: BP 87/50
[2018-05-13] MEDS: ceFAZolin INJECTION 1,000 MG in NS (IVPB) 50 ML IV SCH (23:57)
[2018-05-14] VITALS (26 sets, daily range): BP systolic 77–142; BP diastolic 44–95
[2018-05-14] MEDS: metroNIDAZOLE 500MG/100ML IVPB 100 ML IV SCH ×2 (00:25→08:04)
[2018-05-14] MEDS ORDERED: LACTATED RINGERS 1,000 ML IV ONE ×3 (00:45→06:15)
[2018-05-14] MEDS: NS IV 500 ML 500 ML IV SCH ×2 (01:18→22:20)
[2018-05-14] MEDS: LACTATED RINGERS 1,000 ML IV SCH ×3 (02:46→21:30)
[2018-05-14 03:52] LABS: HEMOGLOBIN 12.6 G/DL (11.5-16.0); MEAN PLATELET VOLUME 10.9 FL (7.4-10.4); RED BLOOD COUNT 3.69 10^6/uL (4.35-5.85); RED CELL DISTRIBUTION WIDTH 12.6 % (10.0-14.5); WHITE BLOOD COUNT 7.5 10^3/uL (4.3-11.0)
[2018-05-14 04:09] LABS: CALCIUM 8.4 MG/DL (8.5-10.1); CREATININE SERUM 1.34 MG/DL (0.60-1.30); MAGNESIUM 1.3 MG/DL (1.8-2.4); POTASSIUM 4.1 MMOL/L (3.6-5.0)
--- NOTE | 2018-05-14 05:51 | Pulmonary Consultation ---
History of Present Illness History of Present Illness Date of Consultation 05/14/18 05:45 Date of Admission History of Present Illness 72yo presented secondary to severe abdominal pain and cramping. CT scan showed cecal volvulus. Dr. Bello took patient to surgery Allergies and Home Medications Allergies Coded Allergies: codeine (Verified Allergy, Unknown, 05/13/18) nausea/faints olanzapine (Verified Allergy, Unknown, 08/03/08) cefadroxil (Verified Adverse Reaction, Unknown, 05/13/18) faints Home Medications Atorvastatin Calcium 80 Mg Tablet, 80 MG PO HS, (Reported) Brexpiprazole 1 Mg Tablet, 1 MG PO HS, (Reported) Cholecalciferol (Vitamin D3) 5,000 Unit Capsule, 5,000 UNIT PO HS, (Reported) Colestipol HCl 1 Gm Tablet, 1 GM PO BID, (Reported) Cyanocobalamin (Vitamin B-12) 1,000 Mcg Tablet, 1,000 MCG PO HS, (Reported) Duloxetine HCl 60 Mg Capsule.dr, 60 MG PO BID, (Reported) Gabapentin 600 Mg Tablet, 600 MG PO BID, (Reported) Guaifenesin 400 Mg Tablet, 400 MG PO Q4H PRN for CONGESTION, (Reported) Levothyroxine Sodium 88 Mcg Tablet, 88 MCG PO HS, (Reported) Loperamide HCl 2 Mg Tablet, 2 MG PO UD PRN for DIARRHEA, (Reported) Metoprolol Tartrate 25 Mg Tablet, 25 MG PO BID, (Reported) Mv,Ca,Iron,Min/FA/Phytosterol 1 Each Tablet, 1 TAB PO HS, (Reported) Niacin 1,000 Mg Tab.er.24h, 1,000 MG PO HS, (Reported) [place]-3 Acid Ethyl Esters 1 Gm Capsule, 2 GM PO BID, (Reported) TAKES 2 (1GM) CAPSULES Omeprazole 20 Mg Capsule.dr, 20 MG PO HS, (Reported) Past Owfvgxv-Rpbgoo-Djklah Hx Past Med/Social Hx: Reviewed Nursing Past Med/Soc Hx Patient Social History Alcohol Use: Denies Use Recreational Drug Use: No Smoking Status: Never a Smoker 2nd Hand Smoke Exposure: No Recent Foreign Travel: No Contact w/Someone Who Travel: No Recent Infectious Disease Expo: No Recent Hopitalizations: Yes Physical Abuse: No Sexual Abuse: No Mistreated: No Immunizations Up To Date Date of Pneumonia Vaccine: Mar 31, 2013 Date of Influenza Vaccine: Apr 26, 2015 Seasonal Allergies Seasonal Allergies: No Past Medical History Surgeries: Yes (Hiatal Hernia, Breast BX, Bladder surgery x 3 (had mesh sling, tie up, ) Abdominal (hital hernia), CABG, Hysterectomy Respiratory: Yes Sleep Apnea Currently Using CPAP: Yes Currently Using BIPAP: No Cardiac: Yes Coronary Artery Disease, High Cholesterol, Hypertension Neurological: No 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 Disorders: No RISK LEAD History: Hysterectomy Genitourinary: Yes Bladder Infection, Renal Failure, UTI-Chronic Gastrointestinal: Yes Diverticulosis, Irritable Bowel Musculoskeletal: Yes Arthritis, Fibromyalgia Endocrine: Yes Hypothyroidsim HEENT: Yes Cataract Loss of Vision: Denies Cancer: No Psychosocial: Yes Anxiety, Depression Integumentary: No Blood Disorders: No Family Medical History Reviewed Nursing Family Hx Alzheimer's disease (mother) Cardiovascular disease (mother and father) Carotid artery stenosis (father) Hypercholesterolemia (mother and father) Hypertension Myocardial infarction (mother and father) No Pertinent Family Hx Sepsis Event Evaluation Height, Weight, BMI Height: 5'3.00" Weight: 139lbs. 0.0oz. [id number]; 24.6 BMI Method:Stated Exam Exam Vital Signs Date Time Temp Pulse Resp B/P (MAP) Pulse Ox O2 Delivery O2 Flow Rate FiO2 05/14/18 04:00 100 Nasal Cannula 2.00 05/14/18 03:00 87 13 108/53 (71) 100 Nasal Cannula 2.00 05/14/18 02:00 89 8 116/56 (76) 100 Nasal Cannula 2.00 05/14/18 01:34 84 05/14/18 01:00 80 9 77/50 (59) 97 Nasal Cannula 2.00 05/14/18 00:15 78 10 90/46 (61) 100 Nasal Cannula 2.00 05/14/18 00:00 100 Nasal Cannula 2.00 05/14/18 00:00 79 9 85/46 (59) 100 Nasal Cannula 2.00 05/13/18 23:59 97.0 05/13/18 23:00 71 8 87/50 (62) 99 Nasal Cannula 2.00 05/13/18 22:00 75 8 92/51 (65) 100 Nasal Cannula 2.00 05/13/18 21:51 Nasal Cannula 2.00 05/13/18 21:35 100 Nasal Cannula 2.00 05/13/18 21:00 65 11 91/55 (67) 100 Nasal Cannula 2.00 05/13/18 20:45 67 11 100/52 (68) 100 Nasal Cannula 2.00 05/13/18 20:32 65 05/13/18 20:30 66 12 111/66 (81) 98 Nasal Cannula 2.00 05/13/18 20:20 65 11 106/56 (73) 100 Nasal Cannula 2.00 05/13/18 11:40 97.6 68 16 110/76 (87) 100 Room Air I & O 05/14/18 07:00 Intake Total 1760 ml Output Total 285 ml Balance 1475 ml Height & Weight Height: 5'3.00" Weight: 139lbs. 0.0oz. 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
[2018-05-14] MEDS ORDERED: KCL 20 MEQ TAB (K-DUR) PO SCH (06:00)
[2018-05-14] MEDS ORDERED: POTASSIUM CL 10MEQ/50ML IVPB 50 ML IV SCH (06:00)
[2018-05-14] MEDS ORDERED: MAGNESIUM 1 GM/100 ML IVPB 100 ML IV SCH (06:00)
[2018-05-14] MEDS: MAGNESIUM 1 GM/100 ML IVPB 100 ML IV SCH ×2 (06:10→07:15)
--- NOTE | 2018-05-14 06:58 | Anesthesia-General Post-Op ---
General Patient Condition Mental Status/LOC: Same as Preop Cardiovascular: Satisfactory Nausea/Vomiting: Absent Respiratory: Satisfactory Pain: Controlled Complications: Absent Post Op Complications Complications None Follow Up Care/Instructions Patient Instructions None needed. Anesthesia/Patient Condition Patient Condition Patient is doing well, no complaints, stable vital signs, no apparent adverse anesthesia problems. No complications reported per nursing. ALEXANDER NAJERA CRNA May 14, 2018 06:58
--- NOTE | 2018-05-14 07:59 | Progress Note-Hospitalist ---
Subjective HPI/CC On Admission Date Seen by Provider: May 14, 2018 Time Seen by Provider: 07:56 Pt is a 72yoCF with a PMH of IBS, CAD s/p CABG, CKD stage 3 who presented to the ER for evaluation of abdominal pain. She states symptoms started yesterday at 1130am with severe cramping pain that she rated 10/10. She awoke at midnight with diarrhea and then has not passed any stool or gas since then. Her pain persisted still and she decided to seek care in the ER where she was found to have a cecal volvulus with high grade obstruction. She was admitted to general surgery to the OR and I am consulted for medical management. She states she has a history of CAD s/p CABG x4 with 2 failed one that required stenting. She denies any chest pain or SOB at this time. Subjective/Events-last exam Pt reports doing well and recovering from surgery well. Pain minimal. Has already tolerated some sips of sprite. No other complaints. No flatus yet. Objective Exam Vital Signs Vital Signs Date Time Temp Pulse Resp B/P (MAP) Pulse Ox O2 Delivery O2 Flow Rate FiO2 05/16/18 04:45 97.9 82 16 103/51 (68) 93 Nasal Cannula 1.00 Capillary Refill : Less Than 3 Seconds General Appearance: No Apparent Distress, WD/WN Respiratory: Lungs Clear, No Respiratory Distress Cardiovascular: Regular Rate, Rhythm, No Murmur Gastrointestinal: Abnormal Bowel Sounds (quiet), Tenderness (appropriate) Extremity: No Calf Tenderness, No Pedal Edema Neurologic/Psychiatric: Alert, Oriented x3 Results/Procedures Lab Laboratory Tests 05/16/18 05:00 05/16/18 05:10 Patient resulted labs reviewed. Imaging: Reviewed Imaging Films, Reviewed Imaging Report Assessment/Plan Assessment and Plan Assess & Plan/Chief Complaint Cecal volvulus Diagnosis/Problems Diagnosis/Problems (1) Cecal volvulus Status: Acute Assessment & Plan: POD #1 Continue current pain management Encouraged IS (2) Small bowel obstruction Status: Acute Assessment & Plan: POD #1 Management per primary (3) CAD (coronary artery disease) Status: Chronic Assessment & Plan: Dr Waters consulted, appreciate recs Resume ASA when ok with primary Qualifiers: Coronary Disease-Associated Artery/Lesion type: bypass graft [place] vs. transplanted heart: [place] heart Associated angina: without angina Qualified Codes: I25.810 - Atherosclerosis of coronary artery bypass graft(s) without angina pectoris (4) Urinary tract infection Status: Acute Assessment & Plan: Culture pending On Flagyl and Ancef from OR Continue as Ancef likely covers but broad to Rocephin if febrile or per sensitivities Qualifiers: Urinary tract infection type: acute cystitis Hematuria presence: without hematuria Qualified Codes: N30.00 - Acute cystitis without hematuria (5) Essential (primary) hypertension Assessment & Plan: Hypotensive overnight but improving Trend (6) CKD (chronic kidney disease) stage 3, GFR 30-59 ml/min Assessment & Plan: 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
[2018-05-14] MEDS: ceFAZolin INJECTION 1,000 MG in NS (IVPB) 50 ML IV SCH (08:04)
[2018-05-14] MEDS: PANTOPRAZOLE 40 MG (PROTONIX) VIAL IVP SCH (08:08)
[2018-05-14] MEDS ORDERED: DIGO250T PO (09:05)
[2018-05-14] MEDS ORDERED: OMEP20CA12 PO (09:05)
[2018-05-14] MEDS ORDERED: ATOR80TA76 PO (09:05)
[2018-05-14] MEDS ORDERED: COLE1TAB PO (09:05)
[2018-05-14] MEDS ORDERED: GABA600T2 PO (09:05)
[2018-05-14] MEDS ORDERED: METO-333 PO (09:05)
[2018-05-14] MEDS ORDERED: DULO60CA58 PO (09:05)
[2018-05-14] MEDS ORDERED: LEVO88TA54 PO (09:05)
[2018-05-14] MEDS ORDERED: OMEG-105 PO (09:05)
[2018-05-14] MEDS ORDERED: BREX1TAB PO (09:05)
[2018-05-14] MEDS ORDERED: LOPE2TAB34 PO (09:20)
[2018-05-14] MEDS ORDERED: CYAN100088 PO (09:20)
[2018-05-14] MEDS ORDERED: GUAI400T44 PO (09:20)
[2018-05-14] MEDS ORDERED: CHOL5000 PO (09:20)
--- NOTE | 2018-05-14 11:04 | Consultation-Cardiology ---
HPI-Cardiology Cardiology Consultation Date of Consultation 05/14/18 Date of Admission Time Seen by Provider: 10:57 Indication: Coronary artery disease HPI 72-year-old lady with history of coronary artery disease, chronic kidney disease , hypertension and hyperlipidemia. History of IBS, started having abdominal pain which became worse. Came into the emergency room yesterday and she was noted to have cecal volvulus. High grade obstruction was diagnosed, Dr. Bello was consulted and she was taken for emergency surgery. Postoperatively she did well, she is recovering well, having mild abdominal pain, denied any chest pain , no shortness of breath. No palpitation, no syncope or near syncopal episodes. No claudications Home Medications & Allergies Allergies: Coded Allergies: codeine (Verified Allergy, Unknown, 05/13/18) nausea/faints olanzapine (Verified Allergy, Unknown, 08/03/08) cefadroxil (Verified Adverse Reaction, Unknown, 05/13/18) faints Home Medication List Reviewed: Yes [id number] Hx Patient Social History Alcohol Use: Denies Use Recreational Drug Use: No Smoking Status: Never a Smoker 2nd Hand Smoke Exposure: No Recent Foreign Travel: No Recent Infectious Disease Expo: No Recent Hopitalizations: Yes Physical Abuse Screen: No Sexual Abuse: No Immunizations Up To Date Date of Pneumonia Vaccine: Mar 31, 2013 Date of Influenza Vaccine: Apr 26, 2015 Past Medical History Past medical history as described below Family Medical History Significant Family History: No Pertinent Family Hx Family History: Alzheimer's disease (mother) Cardiovascular disease (mother and father) Carotid artery stenosis (father) Hypercholesterolemia (mother and father) Hypertension Myocardial infarction (mother and father) Review of Systems Constitutional: see HPI, malaise EENTM: see HPI, no symptoms reported Respiratory: see HPI; No cough, No dyspnea on exertion, No hemoptysis, No orthopnea, No phlegm, No short of breath, No stridor, No wheezing, No other Cardiovascular: see HPI; No chest pain, No edema, No Hx of Intervention, No palpitations, No syncope, No vascular heart diseas, No other Gastrointestinal: see HPI, abdominal pain, constipation Genitourinary: no symptoms reported, see HPI Musculoskeletal: no symptoms reported, see HPI Skin: no symptoms reported, see HPI Psychiatric/Neurological: No Symptoms Reported, See HPI Reviewed Test Results Reviewed Test Results Lab Laboratory Tests Test 05/13/18 11:53 05/13/18 12:48 05/14/18 03:08 Range/Units White Blood Count 6.6 7.5 4.3-11.0 10^3/uL Red Blood Count 4.17 L 3.69 L 4.35-5.85 10^6/uL Hemoglobin 13.9 12.6 11.5-16.0 G/DL Hematocrit 41 37 35-52 % Mean Corpuscular Volume 98 100 H 80-99 FL Mean Corpuscular Hemoglobin 33 34 25-34 PG Mean Corpuscular Hemoglobin Concent 34 34 32-36 G/DL Red Cell Distribution Width 12.3 12.6 10.0-14.5 % Platelet Count 165 141 130-400 10^3/uL Mean Platelet Volume 11.3 H 10.9 H 7.4-10.4 FL Neutrophils (%) (Auto) 70 42-75 % Lymphocytes (%) (Auto) 22 12-44 % Monocytes (%) (Auto) 6 0-12 % Eosinophils (%) (Auto) 3 0-10 % Basophils (%) (Auto) 0 0-10 % Neutrophils # (Auto) 4.6 1.8-7.8 X 10^3 Lymphocytes # (Auto) 1.4 1.0-4.0 X 10^3 Monocytes # (Auto) 0.4 0.0-1.0 X 10^3 Eosinophils # (Auto) 0.2 0.0-0.3 10^3/uL Basophils # (Auto) 0.0 0.0-0.1 10^3/uL Sodium Level 140 138 135-145 MMOL/L Potassium Level 3.6 4.1 3.6-5.0 MMOL/L Chloride Level 105 106 98-107 MMOL/L Carbon Dioxide Level 22 21 21-32 MMOL/L Anion Gap 13 11 5-14 MMOL/L Blood Urea Nitrogen 11 13 7-18 MG/DL Creatinine 1.39 H 1.34 H 0.60-1.30 MG/DL Estimat Glomerular Filtration Rate 37 39 BUN/Creatinine Ratio 8 10 Glucose Level 117 H 107 H 70-105 MG/DL Calcium Level 9.6 8.4 L 8.5-10.1 MG/DL Corrected Calcium 9.6 8.5-10.1 MG/DL Total Bilirubin 0.8 0.1-1.0 MG/DL Aspartate Amino Transf (AST/SGOT) 26 5-34 U/L Alanine Aminotransferase (ALT/SGPT) 16 0-55 U/L Alkaline Phosphatase 87 40-136 U/L Total Protein 6.8 6.4-8.2 GM/DL Albumin 4.0 3.2-4.5 GM/DL Lipase 21 8-78 U/L Urine Color YELLOW Urine Clarity VERY CLOUDY H Urine pH 5 5-9 Urine Specific [place] 1.015 L 1.016-1.022 Urine Protein NEGATIVE NEGATIVE Urine Glucose (UA) NEGATIVE NEGATIVE Urine Ketones NEGATIVE NEGATIVE Urine Nitrite POSITIVE H NEGATIVE Urine Bilirubin NEGATIVE NEGATIVE Urine Urobilinogen NORMAL NORMAL MG/DL Urine Leukocyte Esterase 2+ H NEGATIVE Urine RBC (Auto) NEGATIVE NEGATIVE Urine RBC NONE /HPF Urine WBC 50-100 H /HPF Urine Squamous Epithelial Cells RARE /HPF Urine Crystals NONE /LPF Urine Bacteria LARGE H /HPF Urine Casts NONE /LPF Urine Mucus NEGATIVE /LPF Urine Culture Indicated YES Magnesium Level 1.3 L 1.8-2.4 MG/DL Physical Exam Vital Signs Vital Signs - First Documented 05/13/18 05/13/18 11:40 20:20 Temp 97.6 Pulse 68 Resp 16 B/P (MAP) 110/76 (87) Pulse Ox 100 O2 Delivery Room Air O2 Flow Rate 2.00 Capillary Refill : Less Than 3 Seconds Height, Weight, BMI Height: 5'3.00" Weight: 139lbs. 0.0oz. [id number]; 24.6 BMI Method:Stated General Appearance: No Apparent Distress, WD/WN Eyes: Bilateral Eye Normal Inspection, Bilateral Eye PERRL, Bilateral Eye EOMI HEENT: PERRL/EOMI, TMs Normal, Normal ENT Inspection, Pharynx Normal Neck: Full Range of Motion, Normal Inspection, Non Tender, Supple, Carotid Bruit Respiratory: Chest Non Tender, Lungs Clear, Normal Breath Sounds, No Accessory Muscle Use, No Respiratory Distress Cardiovascular: Regular Rate, Rhythm, No Edema, No Gallop, No JVD, No Murmur, Normal Peripheral Pulses Gastrointestinal: No Organomegaly, No Pulsatile Mass, Soft, Abnormal Bowel Sounds, Distended Back: Normal Inspection, No CVA Tenderness, No Vertebral Tenderness Extremity: Normal Capillary Refill, Normal Inspection, Normal Range of Motion, Non Tender, No Calf Tenderness, No Pedal Edema Neurologic/Psychiatric: Alert, Oriented x3, No Motor/Sensory Deficits, Normal Mood/Affect Skin: Normal Color, Warm/Dry Lymphatic: No Adenopathy A/P-Cardiology Admission Diagnosis Cecal volvulus Coronary artery disease Hypertension Hyperlipidemia Assessment/Plan Cecal volvulus status post resection, recovering, doing well. Still having diminished abdominal bowel sounds. Managed by Dr. Bello Chest pain, reporting improvement, no further episodes were reported. Continue to monitor Coronary artery disease, history of CABG 4 with LALA to LAD vein graft to OM, vein graft to right PDA, vein graft to diagonal. She has known occluded vein graft to diagonal. Most recent left heart catheterization done in September 21, 2015 revealing patent LALA to LAD, patent vein graft to second obtuse marginal branch. Patent vein graft to the right posterior descending artery with good flow distally. Known occluded vein graft to the diagonal artery, continue to monitor History of syncope with hypotensive episode, continue to monitor blood pressure. Congestive heart failure, chronic compensated left ventricular systolic dysfunction, ejection fraction 35-40 percent, continue to monitor fluid balance. Hypertension, monitor blood pressure. Restart home medication once she can tolerate oral intake Mild bilateral carotid stenosis, followed by heart and vascular care last ultrasound was done in May 2016 reporting moderate disease on the right and mild disease on the left. Hyperlipidemia, continue to monitor lipids Diabetes mellitus, followed and managed by primary care physician Hypothyroidism, followed and managed by primary care physician Chronic kidney disease stage III, continue to monitor fluid status and renal function Clinical Quality Measures DVT/VTE Risk/Contraindication: Risk Factor Score Per Nursin RFS Level Per Nursing on Admit: 3=High SUZETTE COCHRAN MD May 14, 2018 11:04
[2018-05-14] MEDS: morphine INJ 10 MG/ML 1ML (SYR OR VIAL) IVP PRN ×2 (14:34→20:26)
--- NOTE | 2018-05-14 21:33 | Progress Note ---
Subjective Date Seen by a Provider: May 14, 2018 Time Seen by a Provider: 08:00 Subjective/Events-last exam Patient with controlled pain. No nausea. tolerating some liquids. Low urine output. blood pressure over night lower, improved now. Objective Exam Vital Signs Date Time Temp Pulse Resp B/P (MAP) Pulse Ox O2 Delivery O2 Flow Rate FiO2 05/14/18 21:00 14 15 122/75 (91) 92 Nasal Cannula 2.00 05/14/18 20:00 100 11 122/55 (77) 96 Nasal Cannula 2.00 05/14/18 19:00 99 10 119/52 (74) 97 Nasal Cannula 2.00 05/14/18 19:00 99 05/14/18 18:20 97.9 98 18 119/59 (79) 100 Nasal Cannula 2.00 05/14/18 18:00 98 12 119/59 (79) 100 Nasal Cannula 2.00 05/14/18 17:00 100 16 115/58 (77) 100 Nasal Cannula 2.00 05/14/18 16:00 106 18 96/53 (67) 100 Nasal Cannula 2.00 05/14/18 16:00 100 Nasal Cannula 2.00 05/14/18 15:00 106 11 100/50 (67) 97 Nasal Cannula 2.00 05/14/18 14:00 110 29 142/70 (94) 93 Nasal Cannula 2.00 05/14/18 13:00 107 05/14/18 13:00 106 21 95/59 (71) 94 Nasal Cannula 2.00 05/14/18 12:00 100 Nasal Cannula 2.00 05/14/18 12:00 105 18 131/61 (84) 93 Nasal Cannula 2.00 05/14/18 11:00 97 11 125/63 (83) 94 Nasal Cannula 2.00 05/14/18 10:00 98 18 109/91 (97) 94 Nasal Cannula 2.00 05/14/18 09:00 101 21 116/56 (76) 98 Nasal Cannula 2.00 05/14/18 08:01 Nasal Cannula 2.00 05/14/18 08:00 96 16 114/44 (67) 99 Nasal Cannula 2.00 05/14/18 08:00 100 Nasal Cannula 2.00 05/14/18 07:00 91 05/14/18 07:00 91 11 101/57 (72) 98 Nasal Cannula 2.00 05/14/18 06:00 96 14 120/52 (74) 100 Nasal Cannula 2.00 05/14/18 05:00 100 11 106/56 (73) 100 Nasal Cannula 2.00 05/14/18 04:00 100 Nasal Cannula 2.00 05/14/18 04:00 91 13 106/60 (75) 100 Nasal Cannula 2.00 05/14/18 03:00 87 13 108/53 (71) 100 Nasal Cannula 2.00 05/14/18 02:00 89 8 116/56 (76) 100 Nasal Cannula 2.00 05/14/18 01:34 84 05/14/18 01:00 80 9 77/50 (59) 97 Nasal Cannula 2.00 05/14/18 00:15 78 10 90/46 (61) 100 Nasal Cannula 2.00 05/14/18 00:00 100 Nasal Cannula 2.00 05/14/18 00:00 79 9 85/46 (59) 100 Nasal Cannula 2.00 05/13/18 23:59 97.0 05/13/18 23:00 71 8 87/50 (62) 99 Nasal Cannula 2.00 05/13/18 22:00 75 8 92/51 (65) 100 Nasal Cannula 2.00 05/13/18 21:51 Nasal Cannula 2.00 05/13/18 21:35 100 Nasal Cannula 2.00 I & O 05/14/18 07:00 Intake Total 4280 ml Output Total 405 ml Balance 3875 ml Capillary Refill : Less Than 3 Seconds General Appearance: No Apparent Distress, WD/WN HEENT: PERRL/EOMI, Normal ENT Inspection, Pharynx Normal Neck: Full Range of Motion, Normal Inspection, Non Tender, Supple, Carotid Bruit Respiratory: Chest Non Tender, No Accessory Muscle Use, No Respiratory Distress Cardiovascular: Regular Rate, Rhythm Gastrointestinal: soft, tenderness (incisional), other Extremity: Normal Capillary Refill, Normal Inspection, Normal Range of Motion, Non Tender, No Calf Tenderness, No Pedal Edema Neurologic/Psychiatric: Alert, Oriented x3, No Motor/Sensory Deficits, Normal Mood/Affect Skin: Normal Color, Warm/Dry Lymphatic: No Adenopathy Results Lab Laboratory Tests 05/14/18 03:08: White Blood Count 7.5, Red Blood Count 3.69L, Hemoglobin 12.6, Hematocrit 37, Mean Corpuscular Volume 100H, Mean Corpuscular Hemoglobin 34, Mean Corpuscular Hemoglobin Concent 34, Red Cell Distribution Width 12.6, Platelet Count 141, Mean Platelet Volume 10.9H, Sodium Level 138, Potassium Level 4.1, Chloride Level 106, Carbon Dioxide Level 21, Anion Gap 11, Blood Urea Nitrogen 13, Creatinine 1.34H, Estimat Glomerular Filtration Rate 39, BUN/Creatinine Ratio 10 , Glucose Level 107H, Calcium Level 8.4L, Magnesium Level 1.3L Microbiology 05/13/18 Urine Culture - Preliminary, Resulted Gram Negative Bacillus 1 Assessment/Plan Assessment/Plan Assessment/Plan abdominal pain, right side and epigastric cecal volvulus cad hypomagnesemia s/p right colectomy and spigelian hernia repair falcon for accurate i/o pain control scd's for dvt prophylaxis increase activity clears iv fluids mag replacement protocol Clinical Quality Measures DVT/VTE Risk/Contraindication: Risk Factor Score Per Nursin RFS Level Per Nursing on Admit: 3=High ANGELITO WAN DO May 14, 2018 21:33
[2018-05-14] MEDS ORDERED: meTOprolol 5 MG/5 ML (LOPRESSOR) VIAL ONE (23:35)
[2018-05-15] VITALS (16 sets, daily range): BP systolic 90–150; BP diastolic 53–81
[2018-05-15] MEDS ORDERED: meTOprolol 5 MG/5 ML (LOPRESSOR) VIAL IV ONE
[2018-05-15] MEDS: LACTATED RINGERS 1,000 ML IV SCH ×2 (03:02→05:50)
[2018-05-15] MEDS: morphine INJ 10 MG/ML 1ML (SYR OR VIAL) IVP PRN (03:04)
--- NOTE | 2018-05-15 07:21 | Pulmonary Progress Note ---
Subjective Time Seen by a Provider: 07:18 Subjective/Events-last exam No complications noted. Sepsis Event Evaluation Height, Weight, BMI Height: 5'3.00" Weight: 140lbs. 2.0oz. 63.864575qr; 24.6 BMI Method:Stated Exam Exam Vital Signs Date Time Temp Pulse Resp B/P (MAP) Pulse Ox O2 Delivery O2 Flow Rate FiO2 05/15/18 06:29 Nasal Cannula 2.00 05/15/18 06:00 100 27 150/81 (104) 100 Nasal Cannula 2.00 05/15/18 05:00 99 18 134/65 (88) 96 Nasal Cannula 2.00 05/15/18 04:00 93 10 110/62 (78) 99 Nasal Cannula 2.00 05/15/18 04:00 98.9 05/15/18 04:00 100 Nasal Cannula 2.00 05/15/18 03:00 107 25 119/63 (81) 97 Nasal Cannula 2.00 05/15/18 02:00 99 17 126/63 (84) 100 Nasal Cannula 2.00 05/15/18 01:00 99 05/15/18 01:00 99 13 134/71 (92) 97 Nasal Cannula 2.00 05/15/18 00:00 99.3 05/15/18 00:00 100 Nasal Cannula 2.00 05/15/18 00:00 99 18 126/62 (83) 100 Nasal Cannula 2.00 05/14/18 23:45 90 18 100 Nasal Cannula 2.00 05/14/18 23:00 110 11 112/95 (101) 95 NIV CPAP 2.00 05/14/18 22:00 106 14 128/65 (86) 90 Nasal Cannula 2.00 05/14/18 21:00 14 15 122/75 (91) 92 Nasal Cannula 2.00 05/14/18 20:00 100 Nasal Cannula 2.00 05/14/18 20:00 98.9 05/14/18 20:00 100 11 122/55 (77) 96 Nasal Cannula 2.00 05/14/18 19:00 99 10 119/52 (74) 97 Nasal Cannula 2.00 05/14/18 19:00 99 05/14/18 18:20 97.9 98 18 119/59 (79) 100 Nasal Cannula 2.00 05/14/18 18:00 98 12 119/59 (79) 100 Nasal Cannula 2.00 05/14/18 17:00 100 16 115/58 (77) 100 Nasal Cannula 2.00 05/14/18 16:00 106 18 96/53 (67) 100 Nasal Cannula 2.00 05/14/18 16:00 100 Nasal Cannula 2.00 05/14/18 15:00 106 11 100/50 (67) 97 Nasal Cannula 2.00 05/14/18 14:00 110 29 142/70 (94) 93 Nasal Cannula 2.00 05/14/18 13:00 107 05/14/18 13:00 106 21 95/59 (71) 94 Nasal Cannula 2.00 05/14/18 12:00 100 Nasal Cannula 2.00 05/14/18 12:00 105 18 131/61 (84) 93 Nasal Cannula 2.00 05/14/18 11:00 97 11 125/63 (83) 94 Nasal Cannula 2.00 05/14/18 10:00 98 18 109/91 (97) 94 Nasal Cannula 2.00 05/14/18 09:00 101 21 116/56 (76) 98 Nasal Cannula 2.00 05/14/18 08:01 Nasal Cannula 2.00 05/14/18 08:00 96 16 114/44 (67) 99 Nasal Cannula 2.00 05/14/18 08:00 100 Nasal Cannula 2.00 I & O 05/15/18 07:00 Intake Total 2830 ml Output Total 1700 ml Balance 1130 ml Height & Weight Height: 5'3.00" Weight: 140lbs. 2.0oz. 63.525970et; 24.6 BMI Method:Stated General Appearance: No Apparent Distress, WD/WN HEENT: PERRL/EOMI, Normal ENT Inspection, Pharynx Normal Neck: Full Range of Motion, Normal Inspection, Non Tender, Supple, Carotid Bruit Respiratory: Chest Non Tender, No Accessory Muscle Use, No Respiratory Distress Cardiovascular: Regular Rate, Rhythm Capillary Refill: Less Than 3 Seconds Gastrointestinal: soft, tenderness (incisional), other Extremity: Normal Capillary Refill, Normal Inspection, Normal Range of Motion, Non Tender, No Calf Tenderness, No Pedal Edema Neurologic/Psychiatric: Alert, Oriented x3, No Motor/Sensory Deficits, Normal Mood/Affect Skin: Normal Color, Warm/Dry Lymphatic: No Adenopathy Results Lab Laboratory Tests 05/13/18 11:53 05/14/18 03:08 Assessment/Plan Assessment/Plan 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 I am going to sign off please call with any questions. UDAY ALVARADO DO May 15, 2018 07:21
[2018-05-15] MEDS ORDERED: PATIENT MAY USE OWN MEDS, ALL MC SCH (08:00)
--- NOTE | 2018-05-15 08:06 | Progress Note-Hospitalist ---
Subjective HPI/CC On Admission Date Seen by Provider: May 15, 2018 Time Seen by Provider: 08:03 Pt is a 72yoCF with a PMH of IBS, CAD s/p CABG, CKD stage 3 who presented to the ER for evaluation of abdominal pain. She states symptoms started yesterday at 1130am with severe cramping pain that she rated 10/10. She awoke at midnight with diarrhea and then has not passed any stool or gas since then. Her pain persisted still and she decided to seek care in the ER where she was found to have a cecal volvulus with high grade obstruction. She was admitted to general surgery to the OR and I am consulted for medical management. She states she has a history of CAD s/p CABG x4 with 2 failed one that required stenting. She denies any chest pain or SOB at this time. Subjective/Events-last exam Pt reports doing well. Complains of abd pain with movement. No flatus. Otherwise doing well. Objective Exam Vital Signs Vital Signs Date Time Temp Pulse Resp B/P (MAP) Pulse Ox O2 Delivery O2 Flow Rate FiO2 05/16/18 04:45 97.9 82 16 103/51 (68) 93 Nasal Cannula 1.00 Capillary Refill : Less Than 3 Seconds General Appearance: No Apparent Distress, WD/WN Respiratory: Lungs Clear Cardiovascular: Regular Rate, Rhythm, No Murmur Gastrointestinal: Abnormal Bowel Sounds (quiet); No Guarding; Tenderness ( appropriate) Genital/Rectal: Other (falcon in place) Extremity: No Calf Tenderness, No Pedal Edema Neurologic/Psychiatric: Alert, Oriented x3, Normal Mood/Affect Results/Procedures Lab Laboratory Tests 05/16/18 05:00 05/16/18 05:10 Patient resulted labs reviewed. Imaging: Reviewed Imaging Films, Reviewed Imaging Report Assessment/Plan Assessment and Plan Assess & Plan/Chief Complaint Cecal volvulus Diagnosis/Problems Diagnosis/Problems (1) Cecal volvulus Status: Acute Assessment & Plan: POD #2 Continue current pain management Encouraged IS CLD (2) Small bowel obstruction Status: Acute Assessment & Plan: POD #2 Management per primary (3) CAD (coronary artery disease) Status: Chronic Assessment & Plan: Dr Waters consulted, appreciate recs Resume ASA when ok with primary Qualifiers: Coronary Disease-Associated Artery/Lesion type: bypass graft [place] vs. transplanted heart: [place] heart Associated angina: without angina Qualified Codes: I25.810 - Atherosclerosis of coronary artery bypass graft(s) without angina pectoris (4) Urinary tract infection Status: Acute Assessment & Plan: Continue Ancef Await c/s Qualifiers: Urinary tract infection type: acute cystitis Hematuria presence: without hematuria Qualified Codes: N30.00 - Acute cystitis without hematuria (5) Essential (primary) hypertension Assessment & Plan: Resolved Resume home BP meds (6) CKD (chronic kidney disease) stage 3, GFR 30-59 ml/min Assessment & Plan: [employer] at baseline Clinical Quality Measures DVT/VTE Risk/Contraindication: Risk Factor Score Per Nursin RFS Level Per Nursing on Admit: 3=High KEVIN ALCARAZ MD May 15, 2018 8:06 am
[2018-05-15] MEDS: ceFAZolin 1 GM/NS 50 ML IVPB IV SCH ×4 (08:40→20:05)
[2018-05-15] MEDS: PANTOPRAZOLE 40 MG (PROTONIX) VIAL IVP SCH (08:46)
[2018-05-15] MEDS: DULoxetine 30 MG (CYMBALTA) CAP PO SCH ×2 (08:46→20:05)
[2018-05-15] MEDS: GABAPENTIN 600 MG (NEURONTIN) TAB PO SCH ×2 (08:46→20:04)
[2018-05-15] MEDS: meTOprolol TARTRATE 25 MG (LOPRESSOR) TABLET PO SCH ×2 (08:46→20:04)
[2018-05-15] MEDS ORDERED: ceFAZolin 1,000 MG/10 ML (ANCEF) VIAL IV SCH (09:00)
[2018-05-15] MEDS: HYDROcodone/APAP 5 MG/325 MG (LORTAB) TAB PO PRN ×2 (09:58→17:53)
[2018-05-15] MEDS ORDERED: FLU QUADRIvalent (5+ YOA) 2018-2019 (AFLURIA) 0.5 ML IM ONE (11:15)
--- NOTE | 2018-05-15 14:46 | Cardiology Progress Note ---
Subjective Date Seen by Provider: May 15, 2018 Time Seen by Provider: 08:30 Subjective/Events-last exam Patient is in bed, feeling better, having abdominal pain, not passing gas. No bowel movement. No nausea or vomiting Review of Systems General: No Chills, No Night Sweats, No Fatigue, No Malaise, No Appetite, No Other HEENT: No Head Aches, No Visual Changes, No Eye Pain, No Ear Pain, No Dysphasia , No Sinus Congestion, No Post Nasal Drip, No Sore Throat, No Other Pulmonary: No Dyspnea, No Cough, No Pleuritic Chest Pain, No Other Cardiovascular: No: Chest Pain, Palpitations, Orthopnea, Paroxysmal Noc. Dyspnea, Edema, Lt Headedness, Other Objective-Cardiology Exam Last Set of Vital Signs Vital Signs 05/15/18 12:15 Temp 98.6 Pulse 70 Resp 18 B/P (MAP) 90/54 (66) Pulse Ox 92 O2 Delivery Room Air Capillary Refill : Less Than 3 Seconds I&O Intake and Output 05/14/18 23:59 Intake Total 5300 ml Output Total 1215 ml Balance 4085 ml Intake Oral 540 ml IV Total 4760 ml Output Urine Total 1215 ml General: Alert, Oriented X3, Cooperative HEENT: Atraumatic, PERRLA Neck: Supple, No JVD, No Thyromegaly Lungs: Clear to Auscultation, Normal Air Movement Heart: Regular Rate, Normal S1, Normal S2, No Murmurs Abdomen: No Hepatosplenomegaly, No Masses, Other (redundant tenderness and diminished bowel sounds) Extremities: No Clubbing, No Cyanosis, No Edema, Normal Pulses, No Tenderness/ Swelling Skin: No Rashes, No Breakdown, No Significant Lesion Neuro: Normal Gait, Normal Speech, Strength at 5/5 X4 Ext, Normal Tone, Sensation Intact Psych/Mental Status: Mental Status NL, Mood NL A/P-Cardiology Admission Diagnosis Cecal volvulus Coronary artery disease Hypertension Hyperlipidemia Assessment/Plan Cecal volvulus status post resection, recovering, doing well. Still having diminished abdominal bowel sounds. Managed by Dr. Bello Chest pain, reporting improvement, no further episodes were reported. Continue to monitor Coronary artery disease, history of CABG 4 with LALA to LAD vein graft to OM, vein graft to right PDA, vein graft to diagonal. She has known occluded vein graft to diagonal. Most recent left heart catheterization done in September 21, 2015 revealing patent LALA to LAD, patent vein graft to second obtuse marginal branch. Patent vein graft to the right posterior descending artery with good flow distally. Known occluded vein graft to the diagonal artery, continue to monitor History of syncope with hypotensive episode, continue to monitor blood pressure. Congestive heart failure, chronic compensated left ventricular systolic dysfunction, ejection fraction 35-40 percent, continue to monitor at this time Hypertension, monitor blood pressure. Restart home medication once she can tolerate oral intake Mild bilateral carotid stenosis, followed by heart and vascular care last ultrasound was done in May 2016 reporting moderate disease on the right and mild disease on the left. Hyperlipidemia, continue to monitor lipids Diabetes mellitus, followed and managed by primary care physician Hypothyroidism, followed and managed by primary care physician Chronic kidney disease stage III, continue to monitor fluid status and renal function Clinical Quality Measures DVT/VTE Risk/Contraindication: Risk Factor Score Per Nursin RFS Level Per Nursing on Admit: 3=High SUZETTE COCHRAN MD May 15, 2018 14:46
[2018-05-15] MEDS: NS IV 500 ML 500 ML IV SCH (15:12)
--- NOTE | 2018-05-15 15:43 | Physical Therapy Evaluation ---
PT Evaluation-General Medical Diagnosis Admission Date May 13, 2018 at 15:20 Medical Diagnosis: Cecal Volvulus, UTI Onset Date: May 13, 2018 Therapy Diagnosis Therapy Diagnosis: General weakness Height/Weight Height (Feet): 5 Height (Inches): 3.00 Weight (Pounds): 140 Weight (Ounces): 2.0 Precautions Precautions/Isolations: Fall Prevention, Standard Precautions Weight Bear Status Right Lower Extremity: Right Weight Bearing/Tolerated Left Lower Extremity: Left Weight Bearing/Tolerated Referral Physician: Ata Bello Reason for Referral: Evaluation/Treatment Medical History Pertinent Medical History: CABG, CAD, Diverticulitis, HTN, Hypothroidism Current History Patient is a 72 Y/O Female that lives at home with her on a single level home. Patient current C/O of abdominal discomfort with movement and a stop in bowel movements. Patient reported she was independent in her PLOF with no use of an AD. Social History Home: Single Level Current Living Status: Spouse Entry Into Home: Stairs With Railing PT Steps Into Home: 3 PT Steps Inside Home: 1 Prior/Core FIM Prior Level of Function Functional [place] Measure 0=Not Assessed/NA 4=Minimal Assistance 1=Total Assistance 5=Supervision or Setup 2=Maximal Assistance 6=Modified [place] 3=Moderate Assistance 7=Complete IndependenceIRFPAI Quality Coding Scale 6 Independent with activity with or without an assistive device 5 Patient requires set up or clean up by helper. Patient completes activity by themselves 4 Supervision or touching assist (CGA). [place] provide cues , steadying assist 3 The helper provides less than half the effort to complete the activity 2 The helper provides more than half the effort to complete the activity 1 Dependent. The helper does all the effort to complete an activity 7 Patient refused to complete or attempt activity 9 The patient did not perform the activity before the current illness or injury 88 Not attempted due to Medical conditions or safety concerns Bed Mobility: 7 Transfers (B,C,W/C) (FIM): 7 Gait: 7 Stairs: 7 PT Evaluation-Current Subjective Patient was awake in room sitting in chair. Pt reported she has been waiting for someone to come help her walk. Pt agreed to PT. Pain Numeric Pain Scale: 0-No Pain Location: No Pain Reported Location Body Site: Abdomen Objective Patient Orientation: Confused Problem Solving: Fair Attachments: Fernando Catheter, IV ROM/Strength ROM Upper Extremities WNL ROM Lower Extremities WNL Strength Upper Extremities WNL Strength Lower Extremities 4/5 BLE Integumentary/Posture Bowel Incontinence: No Bladder Incontinence: No Neuromuscular (Tone, Coordination, Reflexes) Tone, Coordination, Reflexes are WNL Sensory Vision: Functional Hearing: Functional Sensation Right Upper Extremit: Intact Sensation Left Upper Extremity: Intact Sensation Right Lower Extremit: Intact Sensation Left Lower Extremity: Intact Transfers Functional [place] Measure 0=Not Assessed/NA 4=Minimal Assistance 1=Total Assistance 5=Supervision or Setup 2=Maximal Assistance 6=Modified [place] 3=Moderate Assistance 7=Complete [place] Transfers (B, C, W/C) (FIM): 5 Scootin Sit to/from Stand: 5 Gait Mode of Locomotion: Walk Anticipated Mode of Locomotion: Walk Gait (FIM): 5 Distance (FIM): 6=979-02 ft Distance: 100' Gait Level of Assist: 5 Gait Persons Needed: 1 Gait Assistive Device: FWW Balance Sitting Static: Normal Sitting Dynamic: Normal Standing Static: Good Standing Dynamic: Good Assessment/Needs Pt was able to ambulate with with FWW for 100ft with out showing fatigue but uses a shortened stride length. Patient will benefit from skilled strengthening and gait cues to improve overall function. Rehab Potential: Fair Equipment Needs FWW PT Half-Way Goals Half-Way Goals PT Customer Support Assistant Goals Time Frame: May 21, 2018 Transfers (B,C,W/C) (FIM): 6 Gait (FIM): 6 Gait distance (FIM): 3=150 ft Distance: >150' Gait Level of Assist: 6 Gait Assistive Device: FWW PT Plan Problem List Problem List: Activity Tolerance, Functional Strength, Safety, Balance, Gait Treatment/Plan Treatment Plan: Continue Plan of Care Treatment Plan: Functional Strength, Gait, Safety, Therapeutic Exercise Treatment Duration: May 21, 2018 Frequency: 6 times per week Estimated Hrs Per Day: .25 hour per day Patient and/or Family Agrees t: Yes Safety Risks/Education Patient Education: Gait Training, Steps Time/GCodes Time In: 1520 Time Out: 1537 Total Billed Treatment Time: 17 Total Billed Treatment 1 visit EVLowC - 17 mins POOJA GARCIA PT May 15, 2018 15:43
--- NOTE | 2018-05-15 16:58 | Diagnostic Imaging Report ---
PATIENT HISTORY: Coronary artery disease. TECHNIQUE: Single frontal view of the chest. COMPARISON: 05/13/2018. FINDINGS: Lung volumes are normal. There is eventration of the right hemidiaphragm. There is mildly increased airspace opacity at the right lung base. The cardiac silhouette is mildly prominent. Sternotomy wires and post-CABG changes are again seen. No pleural effusion or pneumothorax is seen. No acute osseous abnormality is identified. IMPRESSION: Mildly increased airspace opacity at the right lung base, may represent atelectasis or infiltrate. Dictated by: Dictated on workstation # [id number]
[2018-05-15] MEDS: ATORVASTATIN 80 MG (LIPITOR) TABLET PO SCH (20:04)
[2018-05-15] MEDS: LEVOTHYROXINE 88 MCG (LEVOTHORID) TAB PO SCH (20:04)
[2018-05-15] MEDS: REXULTI 1 MG PO SCH (20:05)
[2018-05-16] VITALS (7 sets, daily range): BP systolic 103–122; BP diastolic 51–64
[2018-05-16 05:54] LABS: BASOPHILS % (AUTO) 0 % (0-10); EOSINOPHILS # (AUTO) 0.3 10^3/uL (0.0-0.3); EOSINOPHILS % (AUTO) 3 % (0-10); HEMATOCRIT 30 % (35-52); HEMOGLOBIN 9.8 G/DL (11.5-16.0); LYMPHOCYTES # (AUTO) 0.9 X 10^3 (1.0-4.0); LYMPHOCYTES % (AUTO) 10 % (12-44); MEAN CORPUSCULAR HEMOGLOBIN 33 PG (25-34); MEAN CORPUSCULAR HGB CONC 33 G/DL (32-36); MEAN CORPUSCULAR VOLUME 101 FL (80-99); MEAN PLATELET VOLUME 11.1 FL (7.4-10.4); MONOCYTES # (AUTO) 0.5 X 10^3 (0.0-1.0); MONOCYTES % (AUTO) 6 % (0-12); NEUTROPHILS # (AUTO) 7.1 X 10^3 (1.8-7.8); NEUTROPHILS % (AUTO) 80 % (42-75); PLATELET COUNT 106 10^3/uL (130-400); RED BLOOD COUNT 2.95 10^6/uL (4.35-5.85); RED CELL DISTRIBUTION WIDTH 12.6 % (10.0-14.5); WHITE BLOOD COUNT 8.9 10^3/uL (4.3-11.0)
[2018-05-16 06:15] LABS: BUN/CREATININE RATIO 12; CALCIUM 6.5 MG/DL (8.5-10.1); CARBON DIOXIDE 17 MMOL/L (21-32); CHLORIDE 114 MMOL/L (98-107); CREATININE SERUM 0.84 MG/DL (0.60-1.30); GFR ESTIMATED > 60; GLUCOSE 69 MG/DL (70-105); POTASSIUM 2.9 MMOL/L (3.6-5.0); SODIUM 138 MMOL/L (135-145)
[2018-05-16] MEDS: NS IV 500 ML 500 ML IV SCH (08:00)
[2018-05-16] MEDS: meTOprolol TARTRATE 25 MG (LOPRESSOR) TABLET PO SCH ×2 (08:33→21:13)
[2018-05-16] MEDS: GABAPENTIN 600 MG (NEURONTIN) TAB PO SCH ×2 (08:33→21:13)
[2018-05-16] MEDS: ceFAZolin 1 GM/NS 50 ML IVPB IV SCH ×4 (08:33→21:14)
[2018-05-16] MEDS: DULoxetine 30 MG (CYMBALTA) CAP PO SCH ×2 (08:33→21:13)
[2018-05-16] MEDS: PANTOPRAZOLE 40 MG (PROTONIX) TAB PO SCH (08:34)
--- NOTE | 2018-05-16 08:50 | Progress Note-Hospitalist ---
Subjective HPI/CC On Admission Date Seen by Provider: May 16, 2018 Time Seen by Provider: 08:43 Pt is a 72yoCF with a PMH of IBS, CAD s/p CABG, CKD stage 3 who presented to the ER for evaluation of abdominal pain. She states symptoms started yesterday at 1130am with severe cramping pain that she rated 10/10. She awoke at midnight with diarrhea and then has not passed any stool or gas since then. Her pain persisted still and she decided to seek care in the ER where she was found to have a cecal volvulus with high grade obstruction. She was admitted to general surgery to the OR and I am consulted for medical management. She states she has a history of CAD s/p CABG x4 with 2 failed one that required stenting. She denies any chest pain or SOB at this time. Subjective/Events-last exam Pt reports feeling sore in her legs since doing PT yesterday. She denies any flatus. Objective Exam Vital Signs Vital Signs Date Time Temp Pulse Resp B/P (MAP) Pulse Ox O2 Delivery O2 Flow Rate FiO2 05/16/18 04:45 97.9 82 16 103/51 (68) 93 Nasal Cannula 1.00 Capillary Refill : Less Than 3 Seconds General Appearance: No Apparent Distress, WD/WN Respiratory: Lungs Clear, No Respiratory Distress Cardiovascular: Regular Rate, Rhythm, No Murmur Gastrointestinal: Soft, Abnormal Bowel Sounds (slow but present) Neurologic/Psychiatric: Alert, Oriented x3 Results/Procedures Lab Laboratory Tests 05/16/18 05:00 05/16/18 05:10 Patient resulted labs reviewed. Imaging: Reviewed Imaging Films, Reviewed Imaging Report Assessment/Plan Assessment and Plan Assess & Plan/Chief Complaint Cecal volvulus Diagnosis/Problems Diagnosis/Problems (1) Cecal volvulus Status: Acute Assessment & Plan: POD #3 Continue current pain management Encouraged IS CLD (2) Small bowel obstruction Status: Acute Assessment & Plan: POD #3 Management per primary (3) CAD (coronary artery disease) Status: Chronic Assessment & Plan: Dr Waters consulted, appreciate recs Resume ASA when ok with primary Qualifiers: Coronary Disease-Associated Artery/Lesion type: bypass graft [place] vs. 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
--- NOTE | 2018-05-16 08:51 | Cardiology Progress Note ---
Subjective Date Seen by Provider: May 16, 2018 Time Seen by Provider: 08:49 Subjective/Events-last exam Patient is in bed, still complaining of fatigue, not passing gas Review of Systems General: No Chills, No Night Sweats; Fatigue; No Malaise, No Appetite, No Other HEENT: No Head Aches, No Visual Changes, No Eye Pain, No Ear Pain, No Dysphasia , No Sinus Congestion, No Post Nasal Drip, No Sore Throat, No Other Pulmonary: Dyspnea; No Cough, No Pleuritic Chest Pain, No Other Cardiovascular: Edema; No: Chest Pain, Palpitations, Orthopnea, Paroxysmal Noc. Dyspnea, Lt Headedness, Other Objective-Cardiology Exam Last Set of Vital Signs Vital Signs 05/16/18 04:45 Temp 97.9 Pulse 82 Resp 16 B/P (MAP) 103/51 (68) Pulse Ox 93 O2 Delivery Nasal Cannula O2 Flow Rate 1.00 Capillary Refill : Less Than 3 Seconds I&O Intake and Output 05/16/18 00:00 Intake Total 1030 ml Output Total 1750 ml Balance -720 ml Intake Oral 1030 ml Output Urine Total 1750 ml General: Alert, Oriented X3, Cooperative HEENT: Atraumatic, PERRLA Neck: Supple, No JVD, No Thyromegaly Lungs: Clear to Auscultation, Normal Air Movement Heart: Regular Rate, Normal S1, Normal S2, No Murmurs Abdomen: No Hepatosplenomegaly, No Masses, Other (Diminished bowel sounds) Extremities: No Clubbing, No Cyanosis, No Edema, Normal Pulses, No Tenderness/ Swelling Skin: No Rashes, No Breakdown, No Significant Lesion Neuro: Normal Gait, Normal Speech, Strength at 5/5 X4 Ext, Normal Tone, Sensation Intact Psych/Mental Status: Mental Status NL, Mood NL Results Lab Laboratory Tests 05/16/18 05:00 05/16/18 05:10 A/P-Cardiology Admission Diagnosis Cecal volvulus Coronary artery disease Hypertension Hyperlipidemia Assessment/Plan Cecal volvulus status post resection, recovering slowly, doing well. Still having diminished abdominal bowel sounds. Managed by Dr. Bello Chest pain, reporting improvement, no further episodes were reported. Continue to monitor Coronary artery disease, history of CABG 4 with LALA to LAD vein graft to OM, vein graft to right PDA, vein graft to diagonal. She has known occluded vein graft to diagonal. Most recent left heart catheterization done in September 21, 2015 revealing patent LALA to LAD, patent vein graft to second obtuse marginal branch. Patent vein graft to the right posterior descending artery with good flow distally. Known occluded vein graft to the diagonal artery, continue to monitor History of syncope with hypotensive episode, continue to monitor blood pressure. Congestive heart failure, chronic compensated left ventricular systolic dysfunction, ejection fraction 35-40 percent, continue to monitor at this time Hypertension, monitor blood pressure. Restart home medication once she can tolerate oral intake Mild bilateral carotid stenosis, followed by heart and vascular care last ultrasound was done in May 2016 reporting moderate disease on the right and mild disease on the left. Hyperlipidemia, continue to monitor lipids Diabetes mellitus, followed and managed by primary care physician Hypothyroidism, followed and managed by primary care physician Chronic kidney disease stage III, continue to monitor fluid status and renal function Clinical Quality Measures DVT/VTE Risk/Contraindication: Risk Factor Score Per Nursin RFS Level Per Nursing on Admit: 3=High SUZETTE COCHRAN MD May 16, 2018 08:51
[2018-05-16] MEDS ORDERED: FUROSEMIDE 40 MG/4 ML INJ (LASIX) IVP NR (09:00)
--- NOTE | 2018-05-16 09:45 | Physical Therapy Daily Note ---
PT Daily Note-Current Subjective Patient was awake in bed and agreed to walk and exercise for PT. Pain Numeric Pain Scale: 5-Moderate Pain Location Body Site: Abdomen Mental Status Patient Orientation: Confused Attachments: Oxygen, IV Transfers Functional [place] Measure 0=Not Assessed/NA 4=Minimal Assistance 1=Total Assistance 5=Supervision or Setup 2=Maximal Assistance 6=Modified [place] 3=Moderate Assistance 7=Complete IndependenceIRFPAI Quality Coding Scale 6 Independent with activity with or without an assistive device 5 Patient requires set up or clean up by helper. Patient completes activity by themselves 4 Supervision or touching assist (CGA). [place] provide cues , steadying assist 3 The helper provides less than half the effort to complete the activity 2 The helper provides more than half the effort to complete the activity 1 Dependent. The helper does all the effort to complete an activity 7 Patient refused to complete or attempt activity 9 The patient did not perform the activity before the current illness or injury 88 Not attempted due to Medical conditions or safety concerns Transfers (B, C, W/C) (FIM): 4 Scootin Rollin Supine to/from Sit: 4 Sit to/from Stand: 5 Weight Bearing Right Lower Extremity: Right Weight Bearing/Tolerated Left Lower Extremity: Left Weight Bearing/Tolerated Gait Training Gait (FIM): 4 Distance (FIM): 3=150 ft Distance: 250' Gait Level of Assist: 4 Gait Persons Needed: 1 Gait Assistive Device: FWW Shuffled gait pattern has shortened stride length for patient. Patient uses UE to support herself and leans forward when ambulating. Exercises Supine Ex: Ankle pumps Seated Therapy Exercises: Ankle pumps, Long arc quads, Hamstring Curls Seated Reps: 10 Assessment Patient was able to walk for 250' with a FWW under CGA. Patient did not show fatigue while walking but has a shuffled gait patterned and needs to be cued to stand up straight and to increase step length. Patient will benefit from continued ambulation to improve overall endurance and strength for daily activities. PT Short Term Goals Short Term Goals Time Frame: May 16, 2018 PT Polysomnography Technician Goals Polysomnography Technician Goals PT Polysomnography Technician Goals Time Frame: May 21, 2018 Transfers (B,C,W/C) (FIM): 6 Gait (FIM): 6 Gait distance (FIM): 3=150 ft Distance: >150' Gait Level of Assist: 6 Gait Assistive Device: FWW PT Plan Problem List Problem List: Activity Tolerance, Functional Strength, Gait Treatment/Plan Treatment Plan: Continue Plan of Care Treatment Plan: Functional Strength, Gait, Safety, Therapeutic Exercise Treatment Duration: May 21, 2018 Frequency: 6 times per week Estimated Hrs Per Day: .25 hour per day Patient and/or Family Agrees t: Yes Safety Risks/Education Patient Education: Gait Training Time/GCodes Time In: 838 Time Out: 902 Total Billed Treatment Time: 24 Total Billed Treatment 1 visit EX - 10 mins GT - 14 mins POOJA GARCIA PT May 16, 2018 09:45
[2018-05-16] MEDS: POTASSIUM CL 10MEQ/50ML IVPB 50 ML IV SCH ×4 (10:22→13:46)
--- NOTE | 2018-05-16 19:15 | Progress Note ---
Subjective Date Seen by a Provider: May 15, 2018 Time Seen by a Provider: 07:57 Subjective/Events-last exam pain controlled. tolerating liquids. minimal ambulation denies n/v fever sweats chills shortness of breath or chest pain. no flatus or bm Objective Exam Vital Signs Date Time Temp Pulse Resp B/P (MAP) Pulse Ox O2 Delivery O2 Flow Rate FiO2 05/16/18 17:07 Nasal Cannula 1.00 05/16/18 15:35 98.3 81 20 107/55 (72) 95 Nasal Cannula 1.00 05/16/18 12:00 97.8 73 18 117/57 (77) 93 Nasal Cannula 1.00 05/16/18 09:00 Nasal Cannula 05/16/18 08:00 97.8 77 14 112/56 (74) 93 Nasal Cannula 1.00 05/16/18 04:45 97.9 82 16 103/51 (68) 93 Nasal Cannula 1.00 05/16/18 00:00 98.8 82 16 115/56 (75) 90 Room Air 05/15/18 19:15 98.6 88 16 109/54 (72) 93 Room Air I & O 05/16/18 06:59 Intake Total 1280 ml Output Total 1550 ml Balance -270 ml Capillary Refill : Less Than 3 Seconds General Appearance: No Apparent Distress, WD/WN HEENT: PERRL/EOMI, Moist Mucous Membranes Neck: Non Tender, Supple Respiratory: Lungs Clear, No Respiratory Distress Cardiovascular: Regular Rate, Rhythm, No Murmur Gastrointestinal: soft, tenderness (incisional) Extremity: Normal Capillary Refill, No Calf Tenderness Neurologic/Psychiatric: Alert, Oriented x3, Normal Mood/Affect Skin: Normal Color, Warm/Dry Lymphatic: No Adenopathy Results Lab Laboratory Tests 05/16/18 05:00: Sodium Level 138, Potassium Level 2.9L, Chloride Level 114H, Carbon Dioxide Level 17L, Anion Gap 7, Blood Urea Nitrogen 10, Creatinine 0.84, Estimat Glomerular Filtration Rate > 60, BUN/Creatinine Ratio 12, Glucose Level 69L, Calcium Level 6.5L 05/16/18 05:10: White Blood Count 8.9, Red Blood Count 2.95L, Hemoglobin 9.8#L, Hematocrit 30L, Mean Corpuscular Volume 101H, Mean Corpuscular Hemoglobin 33, Mean Corpuscular Hemoglobin Concent 33, Red Cell Distribution Width 12.6, Platelet Count 106L, Mean Platelet Volume 11.1H, Neutrophils (%) (Auto) 80H, Lymphocytes (%) (Auto) 10L, Monocytes (%) (Auto) 6, Eosinophils (%) (Auto) 3, Basophils (%) (Auto) 0, Neutrophils # (Auto) 7.1, Lymphocytes # (Auto) 0.9L, Monocytes # (Auto) 0.5, Eosinophils # (Auto) 0.3, Basophils # (Auto) 0.0 Microbiology 05/13/18 Urine Culture - Final, Complete Klebsiella pneumoniae Assessment/Plan Assessment/Plan Assessment/Plan abdominal pain, right side and epigastric cecal volvulus cad hypomagnesemia s/p right colectomy and spigelian hernia repair falcon for accurate i/o pain control scd's for dvt prophylaxis increase activity clears iv fluids Clinical Quality Measures DVT/VTE Risk/Contraindication: Risk Factor Score Per Nursin RFS Level Per Nursing on Admit: 3=High ANGELITO WAN DO May 16, 2018 19:15
--- NOTE | 2018-05-16 19:20 | Progress Note ---
Subjective Date Seen by a Provider: May 16, 2018 Time Seen by a Provider: 09:04 Subjective/Events-last exam patient pain controlled. having some slight confusion with days an nights. no flatus or bm. Taking liquids okay, but having some belching. Ambulating with PT but not excited. Using IS sparingly. Denies n/v fever sweats chills shortness of breath or chest pain. Objective Exam Vital Signs Date Time Temp Pulse Resp B/P (MAP) Pulse Ox O2 Delivery O2 Flow Rate FiO2 05/16/18 17:07 Nasal Cannula 1.00 05/16/18 15:35 98.3 81 20 107/55 (72) 95 Nasal Cannula 1.00 05/16/18 12:00 97.8 73 18 117/57 (77) 93 Nasal Cannula 1.00 05/16/18 09:00 Nasal Cannula 05/16/18 08:00 97.8 77 14 112/56 (74) 93 Nasal Cannula 1.00 05/16/18 04:45 97.9 82 16 103/51 (68) 93 Nasal Cannula 1.00 05/16/18 00:00 98.8 82 16 115/56 (75) 90 Room Air I & O 05/16/18 06:59 Intake Total 1280 ml Output Total 1550 ml Balance -270 ml Capillary Refill : Less Than 3 Seconds General Appearance: No Apparent Distress, WD/WN HEENT: PERRL/EOMI, Moist Mucous Membranes Neck: Non Tender, Supple Respiratory: Lungs Clear, No Respiratory Distress Cardiovascular: Regular Rate, Rhythm, No Murmur Gastrointestinal: soft, tenderness (incisional) Extremity: Normal Capillary Refill, No Calf Tenderness Neurologic/Psychiatric: Alert, Oriented x3, Normal Mood/Affect Skin: Normal Color, Warm/Dry Lymphatic: No Adenopathy Results Lab Laboratory Tests 05/16/18 05:00: Sodium Level 138, Potassium Level 2.9L, Chloride Level 114H, Carbon Dioxide Level 17L, Anion Gap 7, Blood Urea Nitrogen 10, Creatinine 0.84, Estimat Glomerular Filtration Rate > 60, BUN/Creatinine Ratio 12, Glucose Level 69L, Calcium Level 6.5L 05/16/18 05:10: White Blood Count 8.9, Red Blood Count 2.95L, Hemoglobin 9.8#L, Hematocrit 30L, Mean Corpuscular Volume 101H, Mean Corpuscular Hemoglobin 33, Mean Corpuscular Hemoglobin Concent 33, Red Cell Distribution Width 12.6, Platelet Count 106L, Mean Platelet Volume 11.1H, Neutrophils (%) (Auto) 80H, Lymphocytes (%) (Auto) 10L, Monocytes (%) (Auto) 6, Eosinophils (%) (Auto) 3, Basophils (%) (Auto) 0, Neutrophils # (Auto) 7.1, Lymphocytes # (Auto) 0.9L, Monocytes # (Auto) 0.5, Eosinophils # (Auto) 0.3, Basophils # (Auto) 0.0 Microbiology 05/13/18 Urine Culture - Final, Complete Klebsiella pneumoniae Assessment/Plan Assessment/Plan Assessment/Plan abdominal pain, right side and epigastric cecal volvulus cad hypokalemia -replace s/p right colectomy and spigelian hernia repair UTI- on ancef falcon remove pain control scd's for dvt prophylaxis increase activity clears iv fluids Clinical Quality Measures DVT/VTE Risk/Contraindication: Risk Factor Score Per Nursin RFS Level Per Nursing on Admit: 3=High ANGELITO WAN DO May 16, 2018 19:20
[2018-05-16] MEDS: REXULTI 1 MG PO SCH (21:12)
[2018-05-16] MEDS: ATORVASTATIN 80 MG (LIPITOR) TABLET PO SCH (21:13)
[2018-05-16] MEDS: LEVOTHYROXINE 88 MCG (LEVOTHORID) TAB PO SCH (21:13)
[2018-05-17] VITALS: BP 119/61
[2018-05-17 04:00] VITALS: BP 121/60
[2018-05-17] MEDS: HYDROcodone/APAP 5 MG/325 MG (LORTAB) TAB PO PRN (04:34)
[2018-05-17] MEDS: NS IV 500 ML 500 ML IV SCH ×2 (06:15→23:23)
[2018-05-17] MEDS: PANTOPRAZOLE 40 MG (PROTONIX) TAB PO SCH (06:15)
[2018-05-17] MEDS: morphine INJ 10 MG/ML 1ML (SYR OR VIAL) IVP PRN (06:47)
[2018-05-17 06:56] LABS: HEMOGLOBIN 9.9 G/DL (11.5-16.0); MEAN PLATELET VOLUME 11.2 FL (7.4-10.4); RED BLOOD COUNT 3.03 10^6/uL (4.35-5.85); RED CELL DISTRIBUTION WIDTH 12.3 % (10.0-14.5); WHITE BLOOD COUNT 7.2 10^3/uL (4.3-11.0)
[2018-05-17 07:07] LABS: CALCIUM 8.7 MG/DL (8.5-10.1); CREATININE SERUM 1.17 MG/DL (0.60-1.30); MAGNESIUM 1.6 MG/DL (1.8-2.4); POTASSIUM 3.6 MMOL/L (3.6-5.0)
[2018-05-17 08:01] VITALS: BP 104/57
--- NOTE | 2018-05-17 08:33 | Progress Note-Hospitalist ---
Subjective HPI/CC On Admission Date Seen by Provider: May 17, 2018 Time Seen by Provider: 08:29 Pt is a 72yoCF with a PMH of IBS, CAD s/p CABG, CKD stage 3 who presented to the ER for evaluation of abdominal pain. She states symptoms started yesterday at 1130am with severe cramping pain that she rated 10/10. She awoke at midnight with diarrhea and then has not passed any stool or gas since then. Her pain persisted still and she decided to seek care in the ER where she was found to have a cecal volvulus with high grade obstruction. She was admitted to general surgery to the OR and I am consulted for medical management. She states she has a history of CAD s/p CABG x4 with 2 failed one that required stenting. She denies any chest pain or SOB at this time. Subjective/Events-last exam Pt reports feeling better today but tired. Soreness in legs improving. Still no flatus. Objective Exam Vital Signs Vital Signs Date Time Temp Pulse Resp B/P (MAP) Pulse Ox O2 Delivery O2 Flow Rate FiO2 05/18/18 12:00 97.8 78 20 88/53 (65) 92 Room Air 05/18/18 09:00 1.00 Capillary Refill : Less Than 3 Seconds General Appearance: No Apparent Distress, WD/WN Respiratory: Lungs Clear, No Respiratory Distress Cardiovascular: Regular Rate, Rhythm, No Murmur Gastrointestinal: Soft, Abnormal Bowel Sounds (present but minimal) Neurologic/Psychiatric: Alert, Oriented x3 Results/Procedures Lab Laboratory Tests 05/18/18 05:32 05/18/18 05:52 Patient resulted labs reviewed. Imaging: Reviewed Imaging Films, Reviewed Imaging Report Assessment/Plan Assessment and Plan Assess & Plan/Chief Complaint Cecal volvulus Diagnosis/Problems Diagnosis/Problems (1) Cecal volvulus Status: Acute Assessment & Plan: POD #4 CLD Continue pain management Mangement per primary (2) Small bowel obstruction Status: Acute Assessment & Plan: Management per primary (3) CAD (coronary artery disease) Status: Chronic Assessment & Plan: Dr Waters consulted, discussed case with him today Not on ASA preoperatively- defer to cardiology Qualifiers: Coronary Disease-Associated Artery/Lesion type: bypass graft [place] vs. transplanted heart: [place] heart Associated angina: without angina Qualified Codes: I25.810 - Atherosclerosis of coronary artery bypass graft(s) without angina pectoris (4) Urinary tract infection Status: Acute Assessment & Plan: Completed ancef per sensitivities Culture grew klebsiella Qualifiers: Urinary tract infection type: acute cystitis Hematuria presence: without hematuria Qualified Codes: N30.00 - Acute cystitis without hematuria (5) Essential (primary) hypertension Assessment & Plan: Well controlled currently Trend (6) CKD (chronic kidney disease) stage 3, GFR 30-59 ml/min Assessment & Plan: Engineering Geologist 1.17 Improved from baseline Continue IVF Clinical Quality Measures DVT/VTE Risk/Contraindication: Risk Factor Score Per Nursin RFS Level Per Nursing on Admit: 3=High Copy Copies To 1: ETHEL MG KATELYN M MD May 17, 2018 08:33
[2018-05-17] MEDS: GABAPENTIN 600 MG (NEURONTIN) TAB PO SCH ×2 (09:10→20:06)
[2018-05-17] MEDS: DULoxetine 30 MG (CYMBALTA) CAP PO SCH ×2 (09:10→20:06)
[2018-05-17] MEDS: meTOprolol TARTRATE 25 MG (LOPRESSOR) TABLET PO SCH ×2 (09:10→20:09)
--- NOTE | 2018-05-17 09:39 | Physical Therapy Daily Note ---
PT Daily Note-Current Subjective Patient agrees to PT. Much more alert and less confused on this date. Pain Numeric Pain Scale: 5-Moderate Pain Location Body Site: Abdomen Pain Description: Acute Mental Status Patient Orientation: Person, Time, Situation Attachments: IV Transfers Functional [place] Measure 0=Not Assessed/NA 4=Minimal Assistance 1=Total Assistance 5=Supervision or Setup 2=Maximal Assistance 6=Modified [place] 3=Moderate Assistance 7=Complete IndependenceIRFPAI Quality Coding Scale 6 Independent with activity with or without an assistive device 5 Patient requires set up or clean up by helper. Patient completes activity by themselves 4 Supervision or touching assist (CGA). [place] provide cues , steadying assist 3 The helper provides less than half the effort to complete the activity 2 The helper provides more than half the effort to complete the activity 1 Dependent. The helper does all the effort to complete an activity 7 Patient refused to complete or attempt activity 9 The patient did not perform the activity before the current illness or injury 88 Not attempted due to Medical conditions or safety concerns Transfers (B, C, W/C) (FIM): 5 Scootin Supine to/from Sit: 5 Sit to/from Stand: 5 Weight Bearing Right Lower Extremity: Right Weight Bearing/Tolerated Left Lower Extremity: Left Weight Bearing/Tolerated Gait Training Gait (FIM): 5 Distance (FIM): 3=150 ft Distance: 350' Gait Level of Assist: 5 Gait Assistive Device: FWW improved gait sequence and endurance Assessment Current Status: Excellent Progress Progressing with treatment plan. PT instructed nursing to ambulate with patient PRN. PT Short Term Goals Short Term Goals Time Frame: May 16, 2018 PT Detention Goals [place] Machine Operator Goals PT [place] Machine Operator Goals Time Frame: May 21, 2018 Transfers (B,C,W/C) (FIM): 6 Gait (FIM): 6 Gait distance (FIM): 3=150 ft Distance: >150' Gait Level of Assist: 6 Gait Assistive Device: FWW PT Plan Treatment/Plan Treatment Plan: Continue Plan of Care Treatment Plan: Functional Strength, Gait, Safety, Therapeutic Exercise Treatment Duration: May 21, 2018 Frequency: 6 times per week Estimated Hrs Per Day: .25 hour per day Patient and/or Family Agrees t: Yes Time/GCodes Time In: 901 Time Out: 909 Total Billed Treatment Time: 8 Total Billed Treatment 1 visit FA 8 min POOJA GARCIA PT May 17, 2018 09:39
--- NOTE | 2018-05-17 11:12 | Progress Note (SOAP) ---
Subjective Date Seen by a Provider: May 17, 2018 Time Seen by a Provider: 10:30 Subjective/Events-last exam Patient seen with Dr. Mishra. Patient reports doing well. No N/V. No Fever/ chills. Tolerating liquids and ambulating. No flatus or BM yet. Pain tolerable with pain meds. Objective Exam Vital Signs Date Time Temp Pulse Resp B/P (MAP) Pulse Ox O2 Delivery O2 Flow Rate FiO2 05/17/18 09:00 Room Air 05/17/18 08:01 97.7 78 16 104/57 (73) 91 NIV CPAP 05/17/18 04:00 98.6 84 20 121/60 (80) 93 Room Air 05/17/18 00:00 98.7 89 20 119/61 (80) 92 Room Air 05/16/18 21:17 70 20 122/64 (83) 92 05/16/18 21:00 Room Air 05/16/18 19:05 98.4 86 24 118/55 (76) 91 Room Air 05/16/18 17:07 Nasal Cannula 1.00 05/16/18 15:35 98.3 81 20 107/55 (72) 95 Room Air 05/16/18 12:00 97.8 73 18 117/57 (77) 93 Nasal Cannula 1.00 I & O 05/17/18 07:00 Intake Total 1767 ml Output Total 900 ml Balance 867 ml Capillary Refill : Less Than 3 Seconds General Appearance: No Apparent Distress, WD/WN Respiratory: Chest Non Tender, Lungs Clear, Normal Breath Sounds, No Accessory Muscle Use, No Respiratory Distress Cardiovascular: Regular Rate, Rhythm, No Edema Gastrointestinal: soft, tenderness (incisional) Extremity: Normal Capillary Refill, Normal Inspection, Normal Range of Motion Neurologic/Psychiatric: Alert, Oriented x3 Skin: Normal Color, Warm/Dry, Other (Incision C/D/I with skin gisella in place. ) Results Lab Laboratory Tests 05/17/18 06:00: White Blood Count 7.2, Red Blood Count 3.03L, Hemoglobin 9.9L, Hematocrit 30L, Mean Corpuscular Volume 99, Mean Corpuscular Hemoglobin 33, Mean Corpuscular Hemoglobin Concent 33, Red Cell Distribution Width 12.3, Platelet Count 129L, Mean Platelet Volume 11.2H, Sodium Level 135, Potassium Level 3.6, Chloride Level 103, Carbon Dioxide Level 23, Anion Gap 9, Blood Urea Nitrogen 14, Creatinine 1.17, Estimat Glomerular Filtration Rate 45, BUN/Creatinine Ratio 12 , Glucose Level 94, Calcium Level 8.7, Magnesium Level 1.6L Microbiology 05/13/18 Urine Culture - Final, Complete Klebsiella pneumoniae Assessment/Plan Assessment/Plan Assess & Plan/Chief Complaint A 72 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 IV fluids, pain meds, abx scd's for dvt prophylaxis increase activity Continue clears and will await bowel function. Clinical Quality Measures DVT/VTE Risk/Contraindication: Risk Factor Score Per Nursin RFS Level Per Nursing on Admit: 3=High DIANELYS CORDON CABLE TV INSTALLER May 17, 2018 11:12 am
[2018-05-17 12:00] VITALS: BP 100/58
--- NOTE | 2018-05-17 12:02 | Cardiology Progress Note ---
Subjective Date Seen by Provider: May 17, 2018 Time Seen by Provider: 12:01 Subjective/Events-last exam patient is sitting in a chair, feeling better, still having abdominal pain with coughing, not passing gas. Review of Systems General: No Chills, No Night Sweats, No Fatigue, No Malaise, No Appetite, No Other HEENT: No Head Aches, No Visual Changes, No Eye Pain, No Ear Pain, No Dysphasia , No Sinus Congestion, No Post Nasal Drip, No Sore Throat, No Other Pulmonary: No Dyspnea, No Cough, No Pleuritic Chest Pain, No Other Cardiovascular: No: Chest Pain, Palpitations, Orthopnea, Paroxysmal Noc. Dyspnea, Edema, Lt Headedness, Other Objective-Cardiology Exam Last Set of Vital Signs Vital Signs 05/16/18 05/17/18 05/17/18 17:07 08:01 09:00 Temp 97.7 Pulse 78 Resp 16 B/P (MAP) 104/57 (73) Pulse Ox 91 O2 Delivery Room Air O2 Flow Rate 1.00 Capillary Refill : Less Than 3 Seconds I&O Intake and Output 05/17/18 00:00 Intake Total 1317 ml Output Total 950 ml Balance 367 ml Intake Oral 1067 ml IV Total 250 ml Output Urine Total 950 ml # Voids 1 General: Alert, Oriented X3, Cooperative HEENT: Atraumatic, PERRLA Neck: Supple, No JVD, No Thyromegaly Lungs: Clear to Auscultation, Normal Air Movement Heart: Regular Rate, Normal S1, Normal S2, No Murmurs Abdomen: No Hepatosplenomegaly, No Masses, Other (Diminished bowel sounds) Extremities: No Clubbing, No Cyanosis, No Edema, Normal Pulses, No Tenderness/ Swelling Skin: No Rashes, No Breakdown, No Significant Lesion Neuro: Normal Gait, Normal Speech, Strength at 5/5 X4 Ext, Normal Tone, Sensation Intact Psych/Mental Status: Mental Status NL, Mood NL Results Lab Laboratory Tests 05/17/18 06:00 A/P-Cardiology Admission Diagnosis Cecal volvulus Coronary artery disease Hypertension Hyperlipidemia Assessment/Plan Cecal volvulus status post resection, recovering slowly, doing well. Still having diminished abdominal bowel sounds. Managed by Dr. Bello Chest pain, reporting improvement, no further episodes were reported. Continue to monitor Coronary artery disease, history of CABG 4 with LALA to LAD vein graft to OM, vein graft to right PDA, vein graft to diagonal. She has known occluded vein graft to diagonal. Most recent left heart catheterization done in September 21, 2015 revealing patent LALA to LAD, patent vein graft to second obtuse marginal branch. Patent vein graft to the right posterior descending artery with good flow distally. Known occluded vein graft to the diagonal artery, planning to restart aspirin 81 mg once she can tolerate oral medication. Continue to monitor for now History of syncope with hypotensive episode, continue to monitor blood pressure. Congestive heart failure, chronic compensated left ventricular systolic dysfunction, ejection fraction 35-40 percent, continue to monitor at this time Hypertension, monitor blood pressure. Restart home medication once she can tolerate oral intake Mild bilateral carotid stenosis, followed by heart and vascular care last ultrasound was done in May 2016 reporting moderate disease on the right and mild disease on the left. Hyperlipidemia, continue to monitor lipids Diabetes mellitus, followed and managed by primary care physician Hypothyroidism, followed and managed by primary care physician Chronic kidney disease stage III, continue to monitor fluid status and renal function Clinical Quality Measures DVT/VTE Risk/Contraindication: Risk Factor Score Per Nursin RFS Level Per Nursing on Admit: 3=High SUZETTE COCHRAN MD May 17, 2018 12:02
[2018-05-17 15:22] VITALS: BP 106/70
[2018-05-17 19:41] VITALS: BP 101/66
[2018-05-17] MEDS: ATORVASTATIN 80 MG (LIPITOR) TABLET PO SCH (20:05)
[2018-05-17] MEDS: LEVOTHYROXINE 88 MCG (LEVOTHORID) TAB PO SCH (20:06)
[2018-05-17] MEDS: REXULTI 1 MG PO SCH (20:09)
[2018-05-18] VITALS: BP 119/62
[2018-05-18 04:00] VITALS: BP 119/58
[2018-05-18] MEDS: HYDROcodone/APAP 5 MG/325 MG (LORTAB) TAB PO PRN (06:03)
[2018-05-18] MEDS: PANTOPRAZOLE 40 MG (PROTONIX) TAB PO SCH (06:03)
[2018-05-18 06:45] LABS: HEMOGLOBIN 11.6 G/DL (11.5-16.0); MEAN PLATELET VOLUME 10.6 FL (7.4-10.4); RED BLOOD COUNT 3.52 10^6/uL (4.35-5.85); RED CELL DISTRIBUTION WIDTH 12.5 % (10.0-14.5); WHITE BLOOD COUNT 7.6 10^3/uL (4.3-11.0)
[2018-05-18 07:17] LABS: ALBUMIN 2.7 GM/DL (3.2-4.5); BILIRUBIN,TOTAL 0.8 MG/DL (0.1-1.0); CREATININE SERUM 1.13 MG/DL (0.60-1.30); POTASSIUM 3.8 MMOL/L (3.6-5.0); TOTAL PROTEIN 5.2 GM/DL (6.4-8.2)
[2018-05-18 07:56] VITALS: BP 98/55
--- NOTE | 2018-05-18 09:32 | Cardiology Progress Note ---
Subjective Date Seen by Provider: May 18, 2018 Time Seen by Provider: 09:30 Subjective/Events-last exam patient is sitting in a chair, complaining of difficulty swallowing and discomfort in her chest with swallowing. No palpitation. Having abdominal pain. Passing gas Review of Systems General: No Chills, No Night Sweats, No Fatigue, No Malaise, No Appetite, No Other HEENT: No Head Aches, No Visual Changes, No Eye Pain, No Ear Pain, No Dysphasia , No Sinus Congestion, No Post Nasal Drip, No Sore Throat, No Other Pulmonary: Dyspnea; No Cough, No Pleuritic Chest Pain, No Other Cardiovascular: Chest Pain; No: Palpitations, Orthopnea, Paroxysmal Noc. Dyspnea, Edema, Lt Headedness, Other Objective-Cardiology Exam Last Set of Vital Signs Vital Signs 05/16/18 05/18/18 17:07 07:56 Temp 98.2 Pulse 83 Resp 14 B/P (MAP) 98/55 (69) Pulse Ox 92 O2 Delivery Room Air O2 Flow Rate 1.00 Capillary Refill : Less Than 3 Seconds I&O Intake and Output 05/18/18 00:00 Intake Total 3110 ml Output Total 400 ml Balance 2710 ml Intake Oral 2110 ml IV Total 1000 ml Output Urine Total 400 ml # Voids 4 General: Alert, Oriented X3, Cooperative HEENT: Atraumatic, PERRLA Neck: Supple, No JVD, No Thyromegaly Lungs: Clear to Auscultation, Normal Air Movement Heart: Regular Rate, Normal S1, Normal S2, No Murmurs Abdomen: No Hepatosplenomegaly, No Masses, Other (Diminished bowel sounds) Extremities: No Clubbing, No Cyanosis, No Edema, Normal Pulses, No Tenderness/ Swelling Skin: No Rashes, No Breakdown, No Significant Lesion Neuro: Normal Gait, Normal Speech, Strength at 5/5 X4 Ext, Normal Tone, Sensation Intact Psych/Mental Status: Mental Status NL, Mood NL Results Lab Laboratory Tests 05/18/18 05:32 05/18/18 05:52 A/P-Cardiology Admission Diagnosis Cecal volvulus Coronary artery disease Hypertension Hyperlipidemia Assessment/Plan Cecal volvulus status post resection, recovering slowly, doing well. Still having diminished abdominal bowel sounds, complaining of mild difficulty with swallowing. Managed by surgical team Chest pain, reporting improvement, no further episodes were reported. Continue to monitor Coronary artery disease, history of CABG 4 with LALA to LAD vein graft to OM, vein graft to right PDA, vein graft to diagonal. She has known occluded vein graft to diagonal. Most recent left heart catheterization done in September 21, 2015 revealing patent LALA to LAD, patent vein graft to second obtuse marginal branch. Patent vein graft to the right posterior descending artery with good flow distally. Known occluded vein graft to the diagonal artery, planning to restart aspirin 81 mg once she can tolerate oral medication. Continue to monitor for now History of syncope with hypotensive episode, continue to monitor blood pressure. Congestive heart failure, chronic compensated left ventricular systolic dysfunction, ejection fraction 35-40 percent, continue to monitor at this time Hypertension, monitor blood pressure. Restart home medication once she can tolerate oral intake Mild bilateral carotid stenosis, followed by heart and vascular care last ultrasound was done in May 2016 reporting moderate disease on the right and mild disease on the left. Hyperlipidemia, continue to monitor lipids Diabetes mellitus, followed and managed by primary care physician Hypothyroidism, followed and managed by primary care physician Chronic kidney disease stage III, continue to monitor fluid status and renal function Clinical Quality Measures DVT/VTE Risk/Contraindication: Risk Factor Score Per Nursin RFS Level Per Nursing on Admit: 3=High SUZETTE COCHRAN MD May 18, 2018 09:32
[2018-05-18] MEDS: DULoxetine 30 MG (CYMBALTA) CAP PO SCH (09:34)
[2018-05-18] MEDS: meTOprolol TARTRATE 25 MG (LOPRESSOR) TABLET PO SCH (09:34)
[2018-05-18] MEDS: GABAPENTIN 600 MG (NEURONTIN) TAB PO SCH (09:34)
--- NOTE | 2018-05-18 10:39 | Progress Note (SOAP) ---
Subjective Date Seen by a Provider: May 18, 2018 Time Seen by a Provider: 10:15 Subjective/Events-last exam Patient seen with Dr. Mishra. Patient reports doing ok. Reports that she did have a BM and has been passing gas. Tolerating clear liquid diet and ambulating. No N/V. No fever/chills. Minimal abdominal tenderness. Objective Exam Vital Signs Date Time Temp Pulse Resp B/P (MAP) Pulse Ox O2 Delivery O2 Flow Rate FiO2 05/18/18 09:00 92 Room Air 1.00 05/18/18 07:56 98.2 83 14 98/55 (69) 92 Room Air 05/18/18 04:00 98.5 86 20 119/58 (78) 96 Room Air 05/18/18 00:00 99.0 81 20 119/62 (81) 93 NIV CPAP 05/17/18 21:00 Room Air 05/17/18 19:41 96.8 78 16 101/66 (78) 90 Room Air 05/17/18 15:22 97.1 75 14 106/70 (82) 94 Room Air 05/17/18 12:00 98.6 74 18 100/58 (72) 91 Room Air I & O 05/18/18 07:00 Intake Total 2710 ml Balance 2710 ml Capillary Refill : Less Than 3 Seconds General Appearance: No Apparent Distress, WD/WN Neck: Full Range of Motion, Normal Inspection, Non Tender, Supple Respiratory: Chest Non Tender, Lungs Clear, Normal Breath Sounds, No Accessory Muscle Use, No Respiratory Distress Cardiovascular: Regular Rate, Rhythm, No Murmur Gastrointestinal: normal bowel sounds, soft, tenderness (incisional) Extremity: Normal Capillary Refill, Normal Range of Motion, Swelling (approx 1 + lower extremitites) Neurologic/Psychiatric: Alert, Oriented x3 Skin: Normal Color, Warm/Dry, Other (Abdominal incision C/D/I with skin gisella in place.) Results Lab Laboratory Tests 05/18/18 05:32: White Blood Count 7.6, Red Blood Count 3.52L, Hemoglobin 11.6, Hematocrit 35, Mean Corpuscular Volume 100H, Mean Corpuscular Hemoglobin 33, Mean Corpuscular Hemoglobin Concent 33, Red Cell Distribution Width 12.5, Platelet Count 133, Mean Platelet Volume 10.6H 05/18/18 05:52: Sodium Level 137, Potassium Level 3.8, Chloride Level 105, Carbon Dioxide Level 19L, Anion Gap 13, Blood Urea Nitrogen 14, Creatinine 1.13, Estimat Glomerular Filtration Rate 47, BUN/Creatinine Ratio 12, Glucose Level 87, Calcium Level 9.0 , Corrected Calcium 10.0, Total Bilirubin 0.8, Aspartate Amino Transf (AST/SGOT ) 44H, Alanine Aminotransferase (ALT/SGPT) 8, Alkaline Phosphatase 58, Total Protein 5.2L, Albumin 2.7L Microbiology 05/13/18 Urine Culture - Final, Complete Klebsiella pneumoniae Assessment/Plan Assessment/Plan Assess & Plan/Chief Complaint A 72 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 IV fluids, pain meds, abx scd's for dvt prophylaxis increase activity Will advance diet to dys3. Home soon. Clinical Quality Measures DVT/VTE Risk/Contraindication: Risk Factor Score Per Nursin RFS Level Per Nursing on Admit: 3=High DIANELYS CORDON APRN May 18, 2018 10:39 am
[2018-05-18] MEDS ORDERED: HYDR-3812 PO (11:10)
--- NOTE | 2018-05-18 11:12 | Discharge Inst-Surgical ---
D/C Lap Instructions-KIDO New, Converted, or Re-Newed RX: RX on Chart Follow Up Appt with Dr. Bello in 2 weeks Activity as tolerated No driving for 24 hours No [address] while on pain medications No Heavy lifting/exertion for 6 weeks. Incentive Spirometry use every 2 hours while awake Low Residue Diet for 6 weeks. Symptoms to Report: Fever over 101 degree F, Nausea/Vomiting Infection Signs and Symptoms to report: Increased redness, Foul odor of wound, Increased drainage Bathing instructions: May shower Operative Area Clean/Dry; Keep incision clean/dry If any problems/questions: Contact your physician or go to Emergency Room DIANELYS CORDON APRN May 18, 2018 11:12
[2018-05-18 12:00] VITALS: BP 88/53
[2018-05-18 13:25] VITALS: BP 88/53
== END 2018-05-18 13:25 | disposition home or self-care (01) | DRG 330 ==
LOC: EDUNIT# 11:24 → ER 11:26 → SDC 14:15 → ICU 15:20 → 4TH 05-15 12:06
PROVIDERS: ADMIT Surgery; ATTEND Surgery
PROC: 0WQF0ZZ Repair Abdominal Wall, Open Approach (ICD-10-PCS; 2018-05-13)
PROC: 0DTF0ZZ Resection of Right Large Intestine, Open Approach (ICD-10-PCS; principal; 2018-05-13 17:27)
DX: K56.2 Volvulus (principal); K56.699 Other intestinal obstruction unspecified as to partial versus complete obstruction; K43.9 Ventral hernia without obstruction or gangrene; N30.00 Acute cystitis without hematuria; B96.1 Klebsiella pneumoniae [K. pneumoniae] as the cause of diseases classified elsewhere; I25.810 Atherosclerosis of coronary artery bypass graft(s) without angina pectoris; I50.22 Chronic systolic (congestive) heart failure; G47.30 Sleep apnea, unspecified; I12.9 Hypertensive chronic kidney disease with stage 1 through stage 4 chronic kidney disease, or unspecified chronic kidney disease; N18.3 Chronic kidney disease, stage 3 (moderate); Z23 Encounter for immunization; E78.00 Pure hypercholesterolemia, unspecified; K57.90 Diverticulosis of intestine, part unspecified, without perforation or abscess without bleeding; K58.9 Irritable bowel syndrome, unspecified; M19.91 Primary osteoarthritis, unspecified site; E03.9 Hypothyroidism, unspecified; M79.7 Fibromyalgia; F41.9 Anxiety disorder, unspecified; F32.9 Major depressive disorder, single episode, unspecified; Z95.1 Presence of aortocoronary bypass graft; Z95.5 Presence of coronary angioplasty implant and graft; E83.42 Hypomagnesemia; I65.23 Occlusion and stenosis of bilateral carotid arteries
CPT/HCPCS: 36415; 71045; 74176; 80048; 80053; 81000; 83690; 83735; 85025; 85027; 87077; 87088; 87186; 88302; 88307; 90686; 94664; 96361; 96365; 96375

== ENCOUNTER 2018-05-27 08:49 | Emergency (ER) | payer MEDICARE, OTHER ==
[~2018-05-27] VITALS: Ht 160 cm; Wt 62.6 kg
[~2018-05-27 08:49] MED LIST changes: +ATOR80TA76 PO; +BREX1TAB PO; +CHOL5000 PO; +CYAN100088 PO; +DULO60CA58 PO; +GABA600T2 PO; +GUAI400T44 PO; +HYDR-3812 PO; +LEVO88TA54 PO; +LOPE2TAB34 PO; +METO-333 PO; +OMEG-105 PO; +OMEP20CA12 PO
--- OUTSIDE RECORDS SUMMARY | 2018-05-27 09:06 | XMS REPORT | Continuity of Care Document ---
Author Author [facility] Address Unknown Phone Unavailable Allergies Active Description Code Type Severity Reaction Onset Reported/Identified Relationship to Patient Clinical Status Yes olanzapine [id number] Drug Allergy Unknown N/A 08/03/2008 Yes codeine Drug Allergy 02/16/2011 Yes codeine Drug Allergy N/A N/A 02/16/2011 Yes Cefadroxil Drug Allergy N/A N/A 08/20/2013 Yes cefadroxil [id number] Drug Allergy Unknown N/A 05/13/2018 Yes codeine [id number] Drug Allergy Unknown N/A 05/13/2018 Yes cefadroxil [id number] Drug Allergy Mild MAKES HER DIZZY 05/15/2018 Medications There is no data. Problems Date [...] 300.21 AN PANIC DIS W AGORA 05/05/2008 WERDER DO, SOLEDAD F 307.47 SI DYSSOMNIA NOS 05/05/2008 SOLEDAD MAYER [...] PF PSYCHIC FACTORS MED COND 05/05/2008 JENNIFER TRIMMER MEAT, CODY 296.30 MAJOR DEPRESSIVE AFFECTIVE DISORDER RECURRENT EPISODE UNSPECIFIED DEGREE 05/05/2008 JENNIFER TRIMMER MEAT, CODY 300.21 AN PANIC DIS W AGORA 05/05/2008 JENNIFER TRIMMER MEAT, CODY 307.47 SI DYSSOMNIA NOS 05/05/2008 JENNIFER TRIMMER MEAT, CODY 316 PF PSYCHIC FACTORS MED COND 05/05/2008 JENNIFER TRIMMER MEAT, CODY 296.30 MAJOR DEPRESSIVE AFFECTIVE DISORDER RECURRENT EPISODE UNSPECIFIED DEGREE 05/05/2008 JENNIFER TRIMMER MEAT, CODY 300.21 AN PANIC DIS W AGORA 05/05/2008 JENNIFER TRIMMER MEAT, CODY 307.47 SI DYSSOMNIA NOS 05/05/2008 JENNIFER OCAMPON, CODY 316 PF PSYCHIC FACTORS MED COND [...] ALAN MD 300.00 AN ANXIETY UNSPEC 05/26/2008 JENNIFER TRIMMER MEAT, CODY 296.32 MAJOR DEPRESSIVE AFFECTIVE DISORDER RECURRENT EPISODE MODERATE DEGREE 05/26/2008 JENNIFER TRIMMER MEAT, CODY 300.00 AN ANXIETY UNSPEC 05/26/2008 JENNIFER TRIMMER MEAT, CODY 296.32 MAJOR DEPRESSIVE AFFECTIVE DISORDER RECURRENT EPISODE MODERATE DEGREE 05/26/2008 JENNIFER TRIMMER MEAT, CODY 300.00 AN ANXIETY UNSPEC 01/28/2009 294.9 [...] DISORDERS DUE TO CONDITIONS CLASSIFIED ELSEWHERE 01/28/2009 JENNIFER TRIMMER MEAT, CODY 294.9 UNSPECIFIED PERSISTENT MENTAL DISORDERS DUE TO CONDITIONS CLASSIFIED ELSEWHERE 01/28/2009 JENNIFER TIM CODY 294.9 UNSPECIFIED PERSISTENT MENTAL DISORDERS DUE TO CONDITIONS CLASSIFIED ELSEWHERE 04/20/2011 Ot 272.4 HYPERLIPIDEMIA NEC/NOS 04/20/2011 Ot 401.9 HYPERTENSION NOS 04/20/2011 Ot 414.01 CORONARY ATHEROSCLEROSIS OF [place] CORON 04/20/2011 Ot 414.02 CORON ATHEROSCLEROSIS AUTOLOG [...] NOS 09/10/2012 Ot 414.01 CORONARY ATHEROSCLEROSIS OF [place] CORON 09/10/2012 Ot 414.02 CORON ATHEROSCLEROSIS AUTOLOG [...] 300.01 AN PANIC DIS W/O AGORA 09/19/2012 JENNIFER TRIMMER MEAT, CODY 300.01 AN PANIC DIS W/O AGORA 09/19/2012 JENNIFER TRIMMER MEAT, CODY 300.01 AN PANIC DIS W/O AGORA 04/01/2013 [...] 327.23 OBSTRUCTIVE SLEEP APNEA (ADULT) (PEDIATR 11/26/2013 DAVID ALAN MD 296.35 MO DEPRESSIVE RECURRENT IN PART OR [...] 07/19/2014 ESA BETTS Ot 426.4 07/19/2014 ESA BTETS Ot 428.0 07/30/2014 ESA BETTS Ot 401.9 07/30/2014 ESA BETTS Ot 414.00 07/30/2014 ESA BETTS Ot 426.4 07/30/2014 ESA BETTS Ot 428.0 03/10/2015 ESA BETTS Ot 272.4 03/10/2015 ESA BETTS Ot 414.9 03/10/2015 ESA BETTS Ot 428.0 03/10/2015 NENO RIZO, ESA Cote Ot 433.10 03/31/2015 NENO RIZO, ESA Cote Ot 272.4 03/31/2015 NENO RIZO, ESA Cote Ot 414.9 03/31/2015 NENO RIZO, ESA Cote Ot 428.0 03/31/2015 NENO RIZO, ESA Cote Ot 433.10 08/23/2015 Ot 396.3 08/23/2015 Ot [...] V49.81 09/19/2015 ROSITA CRUZ Ot V76.12 09/19/2015 NENO PA, ESA K Ot 401.9 09/19/2015 NENO PA, ESA K Ot 414.00 09/19/2015 NENO PA, ESA K Ot 426.4 09/19/2015 NENO PA, ESA K Ot 428.0 09/19/2015 NENO PA, ESA K Ot 272.4 09/19/2015 NENO PA, ESA K Ot 414.9 09/19/2015 NENO PA, ESA K Ot 428.0 09/19/2015 NENO PA, EAS K Ot 433.10 09/21/2015 Ot 396.3 09/21/2015 Ot [...] 09/21/2015 ROSITA CRUZ Ot V49.81 09/21/2015 ROSITA CRUZP Ot V76.12 09/21/2015 ALONSO-DERICK PA, ESA K Ot 401.9 09/21/2015 ALONSO-DERICK PA, ESA K Ot 414.00 09/21/2015 ALONSO-DERICK PA, ESA K Ot 426.4 09/21/2015 ALONSO-DERICK PA, ESA K Ot 428.0 09/21/2015 ALONSO-DERICK PA, ESA K Ot 272.4 09/21/2015 ALONSO-DERICK PA, ESA K Ot 414.9 09/21/2015 ALONSO-DERICK PA, ESA K Ot 428.0 09/21/2015 ALONSO-DERICK PA, ESA K Ot 433.10 09/21/2015 SUZETTE COCHRAN MD, Ot E03.9 HYPOTHYROIDISM, UNSPECIFIED 09/21/2015 SUZETTE COCHRAN MD Ot E11.9 TYPE 2 DIABETES MELLITUS WITHOUT COMPLIC 09/21/2015 SUZETTE COCHRAN MD, Ot E78.5 HYPERLIPIDEMIA, UNSPECIFIED 09/21/2015 SUZETTE COCHRAN MD Ot I10 ESSENTIAL (PRIMARY) HYPERTENSION 09/21/2015 SUZETTE COCHRAN MD Ot I25.10 ATHSCL HEART DISEASE OF [place] CORONARY 09/21/2015 SUZETTE COCHRAN MD, Ot I25.82 CHRONIC TOTAL OCCLUSION OF CORONARY [place] 09/21/2015 SUZETTE COCHRAN MD Ot I50.22 CHRONIC SYSTOLIC (CONGESTIVE) HEART FAIL 09/21/2015 SUZETTE COCHRAN MD Ot 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 09/21/2015 SUZETTE COCHRAN MD Ot 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 09/21/2015 SUZETTE COCHRAN MD Ot R07.89 OTHER CHEST PAIN 09/21/2015 SUZETTE COCHRAN MD, Ot Z79.899 OTHER LONG-TERM (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 09/21/2015 SUZETTE COCHRAN MD, Ot Z95.1 PRESENCE OF AORTOCORONARY BYPASS GRAFT 10/03/2015 SUZETTE COCHRAN MD Ot E03.9 10/03/2015 SUZETTE COCHRAN MD Ot E11.9 10/03/2015 SUZETTE COCHRAN MD Ot E78.5 10/03/2015 SUZETTE COCHRAN MD Ot I10 10/03/2015 DIMAS SHERMAN, SUZETTE Hardy Ot I25.10 10/03/2015 DIMAS SHERMAN, SUZETTE Hardy Ot I25.82 10/03/2015 DIMAS SHERMAN, SUZETTE Hardy Ot I50.22 10/03/2015 DIMAS SHERMAN, SUZETTE Hardy Ot I65.02 10/03/2015 DIMAS SHERMAN, SUZETTE Hardy Ot I65.23 10/03/2015 SUZETTE COCHRAN MD Ot R07.89 10/03/2015 DIMAS SHERMAN, SUZETTE Hardy [...] Ot 414.00 10/11/2015 Ot 426.4 10/11/2015 ROSITA CRUZP Ot V49.81 10/11/2015 ROSITA CRUZ RETIREMENT OFFICER Ot V76.12 10/11/2015 ESA BETTS Ot 401.9 10/11/2015 NENO PA, ESA Cote Ot 414.00 10/11/2015 NENO RIZO, SEA Cote Ot 426.4 10/11/2015 NENO RIZO, ESA Cote Ot 428.0 10/11/2015 NENO RIZO, ESA Cote Ot 272.4 10/11/2015 NENO RIZO, ESA Cote Ot 414.9 10/11/2015 NENO RIZO, ESA Cote Ot 428.0 10/11/2015 NENO RIZO, ESA Cote Ot 433.10 11/18/2015 Ot 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 11/18/2015 Ot 397.0 TRICUSPID VALVE DISEASE 11/18/2015 Ot 414.00 CORON ATHEROSCLER NOS TYPE VESSEL, NATIV 11/18/2015 Ot 426.52 RT BBB/LFT ANT FASC BLK 11/18/2015 Ot 428.0 CONGESTIVE HEART FAILURE NOS 11/18/2015 Ot V45.81 AORTOCORONARY BYPASS 11/18/2015 Ot 272.4 HYPERLIPIDEMIA NEC/NOS 11/18/2015 Ot 414.01 CORONARY ATHEROSCLEROSIS OF [place] CORON 11/18/2015 Ot 440.20 ATHEROSCLEROSIS [place] ARTERIES EXTREMIT 11/18/2015 Ot 998.12 HEMATOMA COMPLIC [...] RT BUNDLE BRANCH BLOCK 11/18/2015 ROSITA CRUZ RETIREMENT OFFICER Ot V49.81 ASYMPT POSTMENOPAUSAL STATUS (AGE-RELATE 11/18/2015 ROSITA CRUZ RETIREMENT OFFICER Ot V76.12 OTH SCREEN MAMMO-MALIGN NEOPLASM OF [...] W O CEREBRAL IN 11/25/2015 SUZETTE COCHRAN MD, Ot E03.9 HYPOTHYROIDISM, UNSPECIFIED 11/25/2015 SUZETTE COCHRAN MD Ot E11.9 TYPE 2 DIABETES MELLITUS WITHOUT COMPLIC 11/25/2015 SUZETTE COCHRAN MD Ot E78.5 HYPERLIPIDEMIA, UNSPECIFIED 11/25/2015 SUZETTE COCHRAN MD Ot I10 ESSENTIAL (PRIMARY) HYPERTENSION 11/25/2015 SUZETTE COCHRAN MD, Ot I25.10 ATHSCL HEART DISEASE OF [place] CORONARY 11/25/2015 SUZETTE COCHRAN MD, Ot I25.82 CHRONIC TOTAL OCCLUSION OF CORONARY [place] 11/25/2015 SUZETTE COCHRAN MD, Ot I50.22 CHRONIC SYSTOLIC (CONGESTIVE) HEART FAIL 11/25/2015 SUZETTE COCHRAN MD Ot 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 11/25/2015 SUZETTE COCHRAN MD Ot 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 11/25/2015 DIMAS SHERMAN, SUZETTE Hardy Ot R07.89 OTHER CHEST PAIN 11/25/2015 SUZETTE COCHRAN MD Ot Z79.899 OTHER LONG-TERM (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 11/25/2015 SUZETTE COCHRAN MD Ot Z95.1 PRESENCE OF AORTOCORONARY BYPASS GRAFT 07/23/2016 Ot 272.4 HYPERLIPIDEMIA NEC/NOS 07/23/2016 Ot 414.01 CORONARY ATHEROSCLEROSIS OF [place] CORON 07/23/2016 Ot 440.20 ATHEROSCLEROSIS [place] ARTERIES EXTREMIT 07/23/2016 Ot 998.12 HEMATOMA COMPLIC [...] RT BUNDLE BRANCH BLOCK 09/03/2016 ROSITA CRUZ RETIREMENT OFFICER Ot V49.81 ASYMPT POSTMENOPAUSAL STATUS (AGE-RELATE 09/03/2016 ROSITA CRUZ RETIREMENT OFFICER Ot V76.12 OTH SCREEN MAMMO-MALIGN NEOPLASM OF [...] MD Ot I25.10 ATHSCL HEART DISEASE OF [place] CORONARY 01/18/2017 SUZETTE COCHRAN MD Ot 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 01/18/2017 SUZETTE COCHRAN MD Ot M79.7 FIBROMYALGIA 02/08/2017 SUZETTE COCHRAN MD Ot E78.2 MIXED HYPERLIPIDEMIA 02/08/2017 SUZETTE COCHRAN MD Ot I10 ESSENTIAL (PRIMARY) HYPERTENSION 02/08/2017 SUZETTE COCHRAN MD Ot I25.10 ATHSCL HEART DISEASE OF [place] CORONARY 02/08/2017 SUZETTE COCHRAN MD Ot 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 02/08/2017 SUZETTE COCHRAN MD Ot M79.7 FIBROMYALGIA 03/04/2017 SUZETTE COCHRAN MD Ot E78.2 MIXED HYPERLIPIDEMIA 03/04/2017 SUZETTE COCHRAN MD Ot I10 ESSENTIAL (PRIMARY) HYPERTENSION 03/04/2017 SUZETTE COCHRAN MD Ot I25.10 ATHSCL HEART DISEASE OF [place] CORONARY 03/04/2017 SUZETTE COCHRAN MD Ot I65.23 [...] V49.81 ASYMPT POSTMENOPAUSAL STATUS (AGE-RELATE 01/09/2018 ROSITA CURZ Ot V76.12 OTH SCREEN MAMMO-MALIGN NEOPLASM OF [...] MD Ot I25.10 ATHSCL HEART DISEASE OF [place] CORONARY 01/09/2018 SUZETTE COCHRAN MD Ot 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 01/09/2018 SUZETTE COCHRAN MD Ot M79.7 FIBROMYALGIA 01/15/2018 SUZETTE COCHRAN MD Ot E78.5 HYPERLIPIDEMIA, UNSPECIFIED 01/15/2018 SUZETTE COCHRAN MD 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 01/15/2018 SUZETTE COCHRAN MD Ot I11.0 HYPERTENSIVE HEART DISEASE WITH HEART FA 01/15/2018 SUZETTE COCHRAN MD Ot I25.10 ATHSCL HEART DISEASE OF [place] CORONARY 01/15/2018 SUZETTE COCHRAN MD Ot I50.9 HEART FAILURE, UNSPECIFIED 02/04/2018 SUZETTE COCHRAN MD Ot E78.5 HYPERLIPIDEMIA, UNSPECIFIED 02/04/2018 SUZETTE COCHRAN MD 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 02/04/2018 SUZETTE COCHRAN MD Ot I11.0 HYPERTENSIVE HEART DISEASE WITH HEART FA 02/04/2018 SUZETTE COCHRAN MD Ot I25.10 ATHSCL HEART DISEASE OF [place] CORONARY 02/04/2018 SUZETTE COCHRAN MD Ot I50.9 HEART FAILURE, UNSPECIFIED 02/17/2018 SUZETTE COCHRAN MD Ot E78.5 HYPERLIPIDEMIA, UNSPECIFIED 02/17/2018 SUZETTE COCHRAN MD 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 02/17/2018 SUZETTE COCHRAN MD Ot I11.0 HYPERTENSIVE HEART DISEASE WITH HEART FA 02/17/2018 SUZETTE COCHRAN MD Ot I25.10 ATHSCL HEART DISEASE OF [place] CORONARY 02/17/2018 SUZETTE COCHRAN MD Ot I50.9 HEART FAILURE, UNSPECIFIED 05/13/2018 ROSITA CRUZ Ot V49.81 ASYMPT POSTMENOPAUSAL STATUS (AGE-RELATE 05/13/2018 ROSITA CRUZ Ot V76.12 OTH SCREEN MAMMO-MALIGN [...] Ot E78.2 MIXED HYPERLIPIDEMIA 05/13/2018 SUZETTE COCHRAN MD Ot I10 ESSENTIAL (PRIMARY) HYPERTENSION 05/13/2018 SUZETTE COCHRAN MD Ot I25.10 ATHSCL HEART DISEASE OF [place] CORONARY 05/13/2018 SUZETTE COCHRAN MD Ot 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 05/13/2018 SUZETTE COCHRAN MD Ot M79.7 FIBROMYALGIA 05/13/2018 SUZETTE COCHRAN MD Ot E78.5 HYPERLIPIDEMIA, UNSPECIFIED 05/13/2018 SUZETTE COCHRAN MD 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 05/13/2018 SUZETTE COCHRAN MD, Ot I11.0 HYPERTENSIVE HEART DISEASE WITH HEART FA 05/13/2018 SUZETTE COCHRAN MD, Ot I25.10 ATHSCL HEART DISEASE OF [place] CORONARY 05/13/2018 SUZETTE COCHRAN MD Ot I50.9 HEART FAILURE, UNSPECIFIED 05/13/2018 ROSITA CRUZP Ot V49.81 ASYMPT POSTMENOPAUSAL STATUS (AGE-RELATE 05/13/2018 ROSITA CRUZP Ot V76.12 OTH SCREEN MAMMO-MALIGN NEOPLASM OF [place] 05/13/2018 ESA BETTS Ot 401.9 HYPERTENSION NOS 05/13/2018 ESA BETTS Ot 414.00 CORON ATHEROSCLER NOS TYPE VESSEL, NATIV 05/13/2018 ESA BTETS Ot 426.4 RT BUNDLE BRANCH BLOCK 05/13/2018 ALONSO-DERICK PA, ESA K Ot 428.0 CONGESTIVE HEART FAILURE NOS 05/13/2018 [...] Ot E78.2 MIXED HYPERLIPIDEMIA 05/13/2018 SUZETTE COCHRAN MD Ot I10 ESSENTIAL (PRIMARY) HYPERTENSION 05/13/2018 SUZETTE COCHRAN MD, Ot I25.10 ATHSCL HEART DISEASE OF [place] CORONARY 05/13/2018 SUZETTE COCHRAN MD Ot 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 05/13/2018 SUZETTE COCHRAN MD Ot M79.7 FIBROMYALGIA 05/13/2018 SUZETTE COCHRAN MD, Ot E78.5 HYPERLIPIDEMIA, UNSPECIFIED 05/13/2018 SUZETTE COCHRAN MD 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 05/13/2018 SUZETTE COCHRAN MD, Ot I11.0 HYPERTENSIVE HEART DISEASE WITH HEART FA 05/13/2018 SUZETTE COCHRAN MD, Ot I25.10 ATHSCL HEART DISEASE OF [place] CORONARY 05/13/2018 SUZETTE COCHRAN MD Ot I50.9 HEART FAILURE, UNSPECIFIED 05/13/2018 Ot N18.3 CHRONIC KIDNEY DISEASE, STAGE 3 (MODERAT 05/15/2018 Ot N18.3 CHRONIC KIDNEY DISEASE, STAGE 3 (MODERAT 05/17/2018 ANGELITO WAN DO Ot E03.9 HYPOTHYROIDISM, UNSPECIFIED 05/17/2018 ANGELITO WAN DO Ot E78.00 PURE HYPERCHOLESTEROLEMIA, UNSPECIFIED 05/17/2018 ANGELITO WAN DO Ot F32.9 MAJOR DEPRESSIVE DISORDER, SINGLE EPISOD 05/17/2018 ANGELITO WAN DO Ot F41.9 ANXIETY DISORDER, UNSPECIFIED 05/17/2018 ANGELITO WAN DO Ot G47.30 SLEEP APNEA, UNSPECIFIED 05/17/2018 ANGELITO WAN DO Ot I12.9 HYPERTENSIVE CHRONIC KIDNEY DISEASE W ST 05/17/2018 ANGELITO WAN DO Ot I25.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 05/17/2018 ANGELITO WAN DO Ot K43.9 VENTRAL HERNIA WITHOUT OBSTRUCTION OR GA 05/17/2018 ANGELITO WAN DO Ot K56.2 VOLVULUS 05/17/2018 ANGELITO WAN DO Ot K56.699 OTHER INTESTNL OBST UNSP TO PARTIAL V 05/17/2018 ANGELITO WAN DO Ot K57.90 DVRTCLOS OF INTEST, PART UNSP, W/O PERF 05/17/2018 ANGELITO WAN DO Ot K58.9 IRRITABLE BOWEL SYNDROME WITHOUT DIARRHE 05/17/2018 ANGELITO WAN DO Ot M19.91 PRIMARY OSTEOARTHRITIS, UNSPECIFIED SITE 05/17/2018 ANGELITO WAN DO Ot M79.7 FIBROMYALGIA 05/17/2018 ANGELITO WAN DO Ot N18.3 CHRONIC KIDNEY DISEASE, STAGE 3 (MODERAT 05/17/2018 ANGELITO WAN DO Ot N39.0 URINARY TRACT INFECTION, SITE NOT SPECIF 05/17/2018 ANGELITO WAN DO Ot Z23 ENCOUNTER FOR IMMUNIZATION 05/17/2018 ANGELITO WAN DO Ot Z95.1 PRESENCE OF AORTOCORONARY BYPASS GRAFT 05/18/2018 ANGELITO WAN DO Ot E03.9 HYPOTHYROIDISM, UNSPECIFIED 05/18/2018 ANGELITO WAN DO Ot E78.00 PURE HYPERCHOLESTEROLEMIA, UNSPECIFIED 05/18/2018 ANGELITO WAN DO Ot F32.9 MAJOR DEPRESSIVE DISORDER, SINGLE EPISOD 05/18/2018 ANGELITO WAN DO Ot F41.9 ANXIETY DISORDER, UNSPECIFIED 05/18/2018 ANGELITO WAN DO Ot G47.30 SLEEP APNEA, UNSPECIFIED 05/18/2018 ANGELITO WAN DO Ot I12.9 HYPERTENSIVE CHRONIC KIDNEY DISEASE W ST 05/18/2018 ANGELITO WAN DO Ot I25.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 05/18/2018 ANGELITO WAN DO Ot K43.9 VENTRAL HERNIA WITHOUT OBSTRUCTION OR GA 05/18/2018 ANGELITO WAN DO Ot K56.2 VOLVULUS 05/18/2018 NAGELITO WAN DO Ot K56.699 OTHER INTESTNL OBST UNSP TO PARTIAL V 05/18/2018 ANGELITO WAN DO Ot K57.90 DVRTCLOS OF INTEST, PART UNSP, W/O PERF 05/18/2018 ANGELITO WAN DO Ot K58.9 IRRITABLE BOWEL SYNDROME WITHOUT DIARRHE 05/18/2018 ANGELITO WAN DO Ot M19.91 PRIMARY OSTEOARTHRITIS, UNSPECIFIED SITE 05/18/2018 ANGELITO WAN DO Ot M79.7 FIBROMYALGIA 05/18/2018 ANGELITO WAN DO Ot N18.3 CHRONIC KIDNEY DISEASE, STAGE 3 (MODERAT 05/18/2018 ANGELITO WAN DO Ot N39.0 URINARY TRACT INFECTION, SITE NOT SPECIF 05/18/2018 ANGELITO WAN DO Ot Z23 ENCOUNTER FOR IMMUNIZATION 05/18/2018 ANGELITO WAN DO Ot Z95.1 PRESENCE OF AORTOCORONARY BYPASS GRAFT 05/18/2018 ANGELITO WAN DO Ot B96.1 KLEBSIELLA PNEUMONIAE THE CAUSE OF DI 05/18/2018 ANGELITO WAN DO Ot E03.9 HYPOTHYROIDISM, UNSPECIFIED 05/18/2018 ANGELITO WAN DO Ot E78.00 PURE HYPERCHOLESTEROLEMIA, UNSPECIFIED 05/18/2018 ANGELITO WAN DO Ot E83.42 HYPOMAGNESEMIA 05/18/2018 ANGELITO WAN DO Ot F32.9 MAJOR DEPRESSIVE DISORDER, SINGLE EPISOD 05/18/2018 ANGELITO WAN DO Ot F41.9 ANXIETY DISORDER, UNSPECIFIED 05/18/2018 ANGELITO WAN DO Ot G47.30 SLEEP APNEA, UNSPECIFIED 05/18/2018 ANGELITO WAN DO Ot I12.9 HYPERTENSIVE CHRONIC KIDNEY DISEASE W ST 05/18/2018 ANGELITO WAN DO Ot I25.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 05/18/2018 ANGELITO WAN DO Ot I50.22 CHRONIC SYSTOLIC (CONGESTIVE) HEART FAIL 05/18/2018 ANGELITO WAN DO Ot 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 05/18/2018 ANGELITO WAN DO Ot K43.9 VENTRAL HERNIA WITHOUT OBSTRUCTION OR GA 05/18/2018 ANGELITO WAN DO Ot K56.2 VOLVULUS 05/18/2018 ANGELITO WAN DO Ot K56.699 OTHER INTESTNL OBST UNSP TO PARTIAL V 05/18/2018 ANGELITO WAN DO Ot K57.90 DVRTCLOS OF INTEST, PART UNSP, W/O PERF 05/18/2018 ANGELITO WAN DO Ot K58.9 IRRITABLE BOWEL SYNDROME WITHOUT DIARRHE 05/18/2018 ANGELITO WAN DO Ot M19.91 PRIMARY OSTEOARTHRITIS, UNSPECIFIED SITE 05/18/2018 ANGELITO WAN DO Ot M79.7 FIBROMYALGIA 05/18/2018 ANGELITO WAN DO Ot N18.3 CHRONIC KIDNEY DISEASE, STAGE 3 (MODERAT 05/18/2018 ANGELITO WAN DO Ot N30.00 ACUTE CYSTITIS WITHOUT HEMATURIA 05/18/2018 ANGELITO WAN DO Ot N39.0 URINARY TRACT INFECTION, SITE NOT SPECIF 05/18/2018 ANGELITO WAN DO Ot Z23 ENCOUNTER FOR IMMUNIZATION 05/18/2018 ANGELITO WAN DO Ot Z95.1 PRESENCE OF AORTOCORONARY BYPASS GRAFT 05/18/2018 ANGELITO WAN DO Ot Z95.5 PRESENCE OF CORONARY ANGIOPLASTY IMPLANT Procedures Code Description Performed By Performed On 45.16 ESOPHAGOGASTRODUODENOSCOPY [ EGD] W/CLOSE 05/23/2012 60416 PSYCH DIAGNOSTIC EVALUATION 09/25/2012 74331 PSYTX PT&/FAMILY 45 MINUTES 11/20/2012 00236 PSYTX PT&/FAMILY 45 MINUTES 01/06/2013 33049 PSYTX PT&/FAMILY 45 MINUTES 03/05/2013 41490 SLEEP STUDY 04/10/2013 80917 PSYTX PT&/FAMILY 45 MINUTES 04/13/2013 82611 PSYTX PT&/FAMILY 45 MINUTES 05/01/2013 13347 PSYTX PT&/FAMILY 45 MINUTES 08/21/2013 00643 PSYTX PT&/FAMILY 45 MINUTES 09/08/2013 12232 PSYTX PT&/FAMILY 45 MINUTES 09/23/2013 40100 PSYTX PT&/FAMILY 45 MINUTES 11/10/2013 [id number] RESECTION OF RIGHT LARGE INTESTINE, OPEN 05/13/2018 [id number] REPAIR ABDOMINAL WALL, OPEN APPROACH 05/13/2018 Results Test Result Range 24 hour urine [...] - 05/13/18 11:53 Lipase 21 U/L 8-78 Bacterial urine culture - 05/13/18 12:48 Bacterial urine culture [id number] NR COLONY COUNT >100,000/ML NR FTX;REPORTABLE ID/SENSITIVITY REPORTED 05/15/18 12:05 [facility] Sensitivity [facility] - 05/13/18 12:48 Gentamicin susceptibility test by minimum inhibitory concentration < = NRG Trimethoprim/sulfamethoxazole susceptibility test by minimum inhibitoryconcentration <= NRG Levofloxacin susceptibility test by minimum inhibitory concentration <= NRG Ampicillin susceptibility test by minimum inhibitory concentration > NRG Cefazolin susceptibility test by minimum inhibitory concentration < = NRG Ceftriaxone susceptibility test by minimum inhibitory concentration <= NRG Ciprofloxacin susceptibility test by minimum inhibitory concentration <= NRG Meropenem susceptibility test by minimum inhibitory concentration < = NRG Nitrofurantoin susceptibility test by minimum inhibitory concentration 32 NRG Amoxicillin and clavulanate potassium susc GIA <= NRG Automated blood complete blood count (hemogram) panel - 05/14/18 03:08 Blood leukocytes automated count (number/volume) 7.5 10*3/uL 4.3-11.0 Blood erythrocytes automated count (number/volume) 3.69 10*6/uL 4.35-5.85 Venous blood hemoglobin measurement (mass/volume) 12.6 g/dL 11.5-16.0 Blood hematocrit (volume fraction) 37 % 35-52 Automated erythrocyte mean corpuscular volume 100 [foz_us] 80-99 Automated erythrocyte mean corpuscular hemoglobin (mass per erythrocyte) 34 pg 25-34 Automated erythrocyte mean corpuscular hemoglobin concentration measurement ( mass/volume) 34 g/dL 32-36 Automated erythrocyte distribution width ratio 12.6 % 10.0-14.5 Automated blood platelet count (count/volume) 141 10*3/uL 130-400 Automated blood platelet mean volume measurement 10.9 [foz_us] 7.4-10.4 Whole blood basic metabolic panel - 05/14/18 03:08 Serum or plasma sodium measurement (moles/volume) 138 mmol/L 135-145 Serum or plasma potassium measurement (moles/volume) 4.1 mmol/L 3.6-5.0 Serum or plasma chloride measurement (moles/volume) 106 mmol/L 98-107 Carbon dioxide 21 mmol/L 21-32 Serum or plasma anion gap determination (moles/volume) 11 mmol/L 5-14 Serum or plasma urea nitrogen measurement (mass/volume) 13 mg/dL 7-18 Serum or plasma creatinine measurement (mass/volume) 1.34 mg/dL 0.60-1.30 Serum or plasma urea nitrogen/creatinine mass ratio 10 NRG Serum or plasma creatinine measurement with calculation of estimated glomerular filtration rate 39 NRG Serum or plasma glucose measurement (mass/volume) 107 mg/dL 70-105 Serum or plasma calcium measurement (mass/volume) 8.4 mg/dL 8.5-10.1 Magnesium - 05/14/18 03:08 Magnesium 1.3 mg/dL 1.8-2.4 Whole blood basic metabolic panel - 05/16/18 05:00 Serum or plasma sodium measurement (moles/volume) 138 mmol/L 135-145 Serum or plasma potassium measurement (moles/volume) 2.9 mmol/L 3.6-5.0 Serum or plasma chloride measurement (moles/volume) 114 mmol/L 98-107 Carbon dioxide 17 mmol/L 21-32 Serum or plasma anion gap determination (moles/volume) 7 mmol/L 5-14 Serum or plasma urea nitrogen measurement (mass/volume) 10 mg/dL 7-18 Serum or plasma creatinine measurement (mass/volume) 0.84 mg/dL 0.60-1.30 Serum or plasma urea nitrogen/creatinine mass ratio 12 NRG Serum or plasma creatinine measurement with calculation of estimated glomerular filtration rate > NRG Serum or plasma glucose measurement (mass/volume) 69 mg/dL 70-105 Serum or plasma calcium measurement (mass/volume) 6.5 mg/dL 8.5-10.1 Complete blood count (CBC) with automated white blood cell (WBC) differential - 05/16/18 05:10 Blood leukocytes automated count (number/volume) 8.9 10*3/uL 4.3-11.0 Blood erythrocytes automated count (number/volume) 2.95 10*6/uL 4.35-5.85 Venous blood hemoglobin measurement (mass/volume) 9.8 g/dL 11.5-16.0 Blood hematocrit (volume fraction) 30 % 35-52 Automated erythrocyte mean corpuscular volume 101 [foz_us] 80-99 Automated erythrocyte mean corpuscular hemoglobin (mass per erythrocyte) 33 pg 25-34 Automated erythrocyte mean corpuscular hemoglobin concentration measurement ( mass/volume) 33 g/dL 32-36 Automated erythrocyte distribution width ratio 12.6 % 10.0-14.5 Automated blood platelet count (count/volume) 106 10*3/uL 130-400 Automated blood platelet mean volume measurement 11.1 [foz_us] 7.4-10.4 Automated blood neutrophils/100 leukocytes 80 % 42-75 Automated blood lymphocytes/100 leukocytes 10 % 12-44 Blood monocytes/100 leukocytes 6 % 0-12 Automated blood eosinophils/100 leukocytes 3 % 0-10 Automated blood basophils/100 leukocytes 0 % 0-10 Blood neutrophils automated count (number/volume) 7.1 10*3 1.8-7.8 Blood lymphocytes automated count (number/volume) 0.9 10*3 1.0-4.0 Blood monocytes automated count (number/volume) 0.5 10*3 0.0-1.0 Automated eosinophil count 0.3 10*3/uL 0.0-0.3 Automated blood basophil count (count/volume) 0.0 10*3/uL 0.0-0.1 Automated blood complete blood count (hemogram) panel - 05/17/18 06:00 Blood leukocytes automated count (number/volume) 7.2 10*3/uL 4.3-11.0 Blood erythrocytes automated count (number/volume) 3.03 10*6/uL 4.35-5.85 Venous blood hemoglobin measurement (mass/volume) 9.9 g/dL 11.5-16.0 Blood hematocrit (volume fraction) 30 % 35-52 Automated erythrocyte mean corpuscular volume 99 [foz_us] 80-99 Automated erythrocyte mean corpuscular hemoglobin (mass per erythrocyte) 33 pg 25-34 Automated erythrocyte mean corpuscular hemoglobin concentration measurement ( mass/volume) 33 g/dL 32-36 Automated erythrocyte distribution width ratio 12.3 % 10.0-14.5 Automated blood platelet count (count/volume) 129 10*3/uL 130-400 Automated blood platelet mean volume measurement 11.2 [foz_us] 7.4-10.4 Whole blood basic metabolic panel - 05/17/18 06:00 Serum or plasma sodium measurement (moles/volume) 135 mmol/L 135-145 Serum or plasma potassium measurement (moles/volume) 3.6 mmol/L 3.6-5.0 Serum or plasma chloride measurement (moles/volume) 103 mmol/L 98-107 Carbon dioxide 23 mmol/L 21-32 Serum or plasma anion gap determination (moles/volume) 9 mmol/L 5-14 Serum or plasma urea nitrogen measurement (mass/volume) 14 mg/dL 7-18 Serum or plasma creatinine measurement (mass/volume) 1.17 mg/dL 0.60-1.30 Serum or plasma urea nitrogen/creatinine mass ratio 12 NRG Serum or plasma creatinine measurement with calculation of estimated glomerular filtration rate 45 NRG Serum or plasma glucose measurement (mass/volume) 94 mg/dL 70-105 Serum or plasma calcium measurement (mass/volume) 8.7 mg/dL 8.5-10.1 Magnesium - 05/17/18 06:00 Magnesium 1.6 mg/dL 1.8-2.4 Automated blood complete blood count (hemogram) panel - 05/18/18 05:32 Blood leukocytes automated count (number/volume) 7.6 10*3/uL 4.3-11.0 Blood erythrocytes automated count (number/volume) 3.52 10*6/uL 4.35-5.85 Venous blood hemoglobin measurement (mass/volume) 11.6 g/dL 11.5-16.0 Blood hematocrit (volume fraction) 35 % 35-52 Automated erythrocyte mean corpuscular volume 100 [foz_us] 80-99 Automated erythrocyte mean corpuscular hemoglobin (mass per erythrocyte) 33 pg 25-34 Automated erythrocyte mean corpuscular hemoglobin concentration measurement ( mass/volume) 33 g/dL 32-36 Automated erythrocyte distribution width ratio 12.5 % 10.0-14.5 Automated blood platelet count (count/volume) 133 10*3/uL 130-400 Automated blood platelet mean volume measurement 10.6 [foz_us] 7.4-10.4 Comprehensive metabolic panel - 05/18/18 05:52 Serum or plasma sodium measurement (moles/volume) 137 mmol/L 135-145 Serum or plasma potassium measurement (moles/volume) 3.8 mmol/L 3.6-5.0 Serum or plasma chloride measurement (moles/volume) 105 mmol/L 98-107 Carbon dioxide 19 mmol/L 21-32 Serum or plasma anion gap determination (moles/volume) 13 mmol/L 5-14 Serum or plasma urea nitrogen measurement (mass/volume) 14 mg/dL 7-18 Serum or plasma creatinine measurement (mass/volume) 1.13 mg/dL 0.60-1.30 Serum or plasma urea nitrogen/creatinine mass ratio 12 NRG Serum or plasma creatinine measurement with calculation of estimated glomerular filtration rate 47 NRG Serum or plasma glucose measurement (mass/volume) 87 mg/dL 70-105 Serum or plasma calcium measurement (mass/volume) 9.0 mg/dL 8.5-10.1 Serum or plasma total bilirubin measurement (mass/volume) 0.8 mg/dL 0.1-1.0 Serum or plasma alkaline phosphatase measurement (enzymatic activity/volume) 58 U/L 40-136 Serum or plasma aspartate aminotransferase measurement (enzymatic activity/ volume) 44 U/L 5-34 Serum or plasma alanine aminotransferase measurement (enzymatic activity/volume ) 8 U/L 0-55 Serum or plasma protein measurement (mass/volume) 5.2 g/dL 6.4-8.2 Serum or plasma albumin measurement (mass/volume) 2.7 g/dL 3.2-4.5 CALCIUM CORRECTED 10.0 mg/dL 8.5-10.1 Encounters ACCT No. Visit Date/Time Discharge Status Pt. Type Provider Facility Loc./Unit Complaint [id number] 02/25/2014 15:48:00 02/25/2014 23:59:59 [facility] Outpatient CODY RODRIGUEZ APRN [id number] 02/25/2014 15:48:00 02/25/2014 23:59:59 [facility] Outpatient CODY RODRIGUEZ APRN [id number] 11/26/2013 09:48:00 11/26/2013 23:59:59 [facility] Outpatient DAVID ALAN MD [id number] 11/10/2013 17:55:00 11/10/2013 23:59:59 [facility] Outpatient ALCIDES SEPULVEDA PHD [id number] 09/22/2013 16:49:00 09/22/2013 23:59:59 [facility] Outpatient ALCIDES SEPULVEDA PHD [id number] 09/08/2013 15:53:00 09/08/2013 23:59:59 [facility] Out[facility] ALCIDES SEPULVEDA PHD [id number] 08/21/2013 15:57:00 08/21/2013 23:59:59 [facility] Out[facility] ALCIDES SEPULVEDA PHD [id number] 08/20/2013 09:49:00 08/20/2013 23:59:59 [facility] Outpatient DAVID ALAN MD [id number] 04/28/2013 15:54:00 04/28/2013 23:59:59 [facility] Out[facility] ALCIDES SEPULVEDA PHD [id number] 04/10/2013 14:55:00 04/10/2013 23:59:59 [facility] Out[facility] ALCIDES SEPULVEDA PHD [id number] 09/19/2012 11:27:00 09/19/2012 23:59:59 [facility] Outpatient SOLEDAD MAYER DO [id number] 08/04/2012 14:29:00 08/04/2012 23:59:59 [place] [id number] 08/31/2011 14:27:00 08/31/2011 23:59:59 [facility] Outpatient [id number] 08/31/2011 14:27:00 08/31/2011 23:59:59 [facility] Outpatient [id number] 03/04/2013 14:49:00 Document Registration [id number] 01/06/2013 09:59:00 Document Registration [id number] 11/19/2012 12:48:00 Document Registration [id number] 02/17/2015 10:02:59 [facility] Document Registration [id number] 05/13/2018 15:20:00 05/18/2018 13:25:00 [facility] Outpatient ANGELITO WAN DO [facility] 4TH CECAL VOLVULUS,UTI [id number] 01/13/2018 11:19:00 01/13/2018 23:59:59 [facility] Outpatient SUZETTE COCHRAN MD [facility] CARD I25.10 CAD [id number] 01/17/2017 12:51:00 01/17/2017 23:59:59 [facility] Outpatient SUZETTE COCHRAN MD [facility] CARD CAD I25.10 [id number] 09/05/2016 11:05:00 09/05/2016 23:59:59 [facility] Outpatient ETHEL MG DO [facility] LAB N18.3 [id number] 09/21/2015 11:55:00 09/21/2015 18:55:00 DIS Outpatient SUZETTE COCHRAN MD [facility] CATH UNSTABLE ANGINA, CAD, HTN,HLP [id number] 02/17/2015 10:02:00 02/17/2015 23:59:59 [facility] Outpatient ESA BETTS [facility] CARD CAD,CHF,MODESTA, HLP [id number] 06/15/2014 11:44:00 06/15/2014 23:59:59 [facility] Outpatient ESA BETTS [facility] CARD CAD,CHF,HTN [id number] 05/08/2014 12:07:00 05/09/2014 13:15:00 DIS Inpatient SUZETTE COCHRAN MD [facility] CSD HYPOTENSION ATYPICAL CHEST PAIN [id number] 10/22/2013 09:21:00 10/22/2013 23:59:59 [facility] Outpatient ROSITA CRUZ [facility] RAD SCREENING,POST MENAPAUSAL STATUS [id number] 06/09/2013 19:51:00 06/10/2013 06:25:00 DIS Outpatient RAY GAMBOA MD [facility] SLEEP KRISTAL [id number] 04/29/2013 20:58:00 04/30/2013 07:10:00 DIS Outpatient SOLEDAD MAYER DO [facility] SLEEP KRISTAL,INSOMNIA [id number] 04/01/2013 21:23:00 04/01/2013 23:28:00 DIS Emergency TRUDY LANGFORD [facility] ER FALL/RIGHT RING FINGER INJURY [id number] 03/19/2013 19:06:00 03/19/2013 23:59:59 [facility] Outpatient [id number] 01/31/2013 11:45:00 01/31/2013 23:59:59 [facility] Outpatient [id number] 12/03/2016 00:00:00 Document Registration [id number] 09/19/2015 12:20:00 Document Registration [id number] 09/19/2015 12:20:00 Document Registration [id number] 09/10/2012 08:52:00 Document Registration [id number] 09/02/2012 10:25:00 Document Registration [id number] 05/21/2012 11:55:00 Document Registration [id number] 05/20/2012 08:59:00 Document Registration [id number] 04/25/2012 21:02:00 Document Registration [id number] 07/31/2011 13:00:00 Document Registration [id number] 07/31/2011 12:57:00 Document Registration [id number] 06/01/2011 09:17:00 Document Registration [id number] 04/26/2011 15:23:00 Document Registration [id number] 04/20/2011 06:50:00 Document Registration [id number] 03/06/2011 07:04:00 Document Registration [id number] 06/22/2010 09:22:00 Document Registration [id number] 05/09/2010 09:42:00 Document Registration [id number] 04/24/2010 06:30:00 Document Registration [id number] 03/30/2010 06:39:00 Document Registration [id number] 02/14/2018 08:00:00 02/14/2018 23:59:59 [facility]
[2018-05-27] MEDS ORDERED: ALPRAZolam 0.25 MG (XANAX) TAB PO ONE (09:30)
--- NOTE | 2018-05-27 09:37 | ED Psychosocial ---
General Chief Complaint: Psych/Social Disorder Stated Complaint: ANXIETY;SOB Nursing Triage Note: ARRIVED VIA AMB TO ROOM 07. STATES SHE HAS INCREASED IN PANIC ATTACKS SINCE BOWEL SURGERY ON MAY 13. CALLED [facility] OFFICE WHO TOLD HER TO COME HERE. Source: patient Exam Limitations: no limitations History of Present Illness Date Seen by Provider: May 27, 2018 Time Seen by Provider: 09:24 Initial Comments Patient presents to ER by private conveyance with chief complaint that for the past 2 days she's been having some increased anxiety energy and difficulty with sleep. She says she feels wired and when she sits down scant stay put in when she walks around scant preoperative do with herself. She says she has a history of anxiety long-standing but not asserted panic disorder. She does not use anything for her anxiety. She thinks made worse by her recent partial colon resection by Dr. Wan. Her wound is healing fine and her pain is under control she suspects the hydrocodone that he put her out on is also making her anxiety worse because away makes her feel. She says she occasionally has some nausea but does not have anything for that. She's not vomiting or having nausea right now. She's also concerned because after the surgery which was about a week ago she still having some swelling in her feet that's not gone away and she does have a history of congestive heart failure. She's not having any shortness of breath. She hasn't occasional cough. No fevers chills. Allergies and Home Medications Allergies Coded Allergies: codeine (Verified Allergy, Unknown, 05/13/18) nausea/faints olanzapine (Verified Allergy, Unknown, 08/03/08) cefadroxil (Verified Adverse Reaction, Mild, MAKES HER DIZZY AND FAINTS, 05/15/18) faints Home Medications Atorvastatin Calcium 80 Mg Tablet, 80 MG PO HS, (Reported) Brexpiprazole 1 Mg Tablet, 1 MG PO HS, (Reported) Cholecalciferol (Vitamin D3) 5,000 Unit Capsule, 5,000 UNIT PO HS, (Reported) Colestipol HCl 1 Gm Tablet, 1 GM PO BID, (Reported) Cyanocobalamin (Vitamin B-12) 1,000 Mcg Tablet, 1,000 MCG PO HS, (Reported) Duloxetine HCl 60 Mg Capsule.dr, 60 MG PO BID, (Reported) Gabapentin 600 Mg Tablet, 600 MG PO BID, (Reported) Guaifenesin 400 Mg Tablet, 400 MG PO Q4H PRN for CONGESTION, (Reported) Hydrocodone/Acetaminophen 1 Each Tablet, 1-2 EACH PO Q4-6hr PRN for PAIN- MODERATE Prescribed by: DIANELYS CORDON on 05/18/18 1110 Levothyroxine Sodium 88 Mcg Tablet, 88 MCG PO HS, (Reported) Loperamide HCl 2 Mg Tablet, 2 MG PO UD PRN for DIARRHEA, (Reported) Metoprolol Tartrate 25 Mg Tablet, 25 MG PO BID, (Reported) Mv,Ca,Iron,Min/FA/Phytosterol 1 Each Tablet, 1 TAB PO HS, (Reported) Niacin 1,000 Mg Tab.er.24h, 1,000 MG PO HS, (Reported) Kimball-3 Acid Ethyl Esters 1 Gm Capsule, 2 GM PO BID, (Reported) TAKES 2 (1GM) CAPSULES Omeprazole 20 Mg Capsule.dr, 20 MG PO HS, (Reported) Patient Home Medication List Home Medication List Reviewed: Yes Review of Systems Constitutional: No chills, No diaphoresis EENTM: No ear pain, No double vision Respiratory: No no symptoms reported, No cough, No dyspnea on exertion Cardiovascular: No chest pain; Hx of Intervention (CABG); No palpitations Gastrointestinal: No abdominal pain, No nausea Genitourinary: No discharge, No dysuria Musculoskeletal: No back pain, No joint pain Psychiatric/Neurological: See HPI, Anxiety Past Rtavomu-Wmurna-Gcthhg Hx Patient Social History Alcohol Use: Denies Use Recreational Drug Use: No Smoking Status: Never a Smoker 2nd Hand Smoke Exposure: No Recent Foreign Travel: No Contact w/Someone Who Travel: No Recent Infectious Disease Expo: No Recent Hopitalizations: Yes Immunizations Up To Date Date of Pneumonia Vaccine: Mar 31, 2013 Date of Influenza Vaccine: May 15, 2018 Seasonal Allergies Seasonal Allergies: No Past Medical History Surgeries: Yes (Hiatal Hernia, Breast BX, Bladder surgery x 3 (had mesh sling, tie up, ) Abdominal, CABG, Hysterectomy Respiratory: Yes Sleep Apnea Currently Using CPAP: Yes Currently Using BIPAP: No Cardiac: Yes Coronary Artery Disease, High Cholesterol, Hypertension Neurological: No 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 Disorders: No 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 Genitourinary: Yes Bladder Infection, Renal Failure, UTI-Chronic Gastrointestinal: Yes Diverticulosis, Irritable Bowel Musculoskeletal: Yes Arthritis, Fibromyalgia Endocrine: Yes Hypothyroidsim HEENT: Yes Cataract Loss of Vision: Denies Cancer: No Psychosocial: Yes Anxiety, Depression Integumentary: No Blood Disorders: No Family Medical History Alzheimer's disease (mother) Cardiovascular disease (mother and father) Carotid artery stenosis (father) Hypercholesterolemia (mother and father) Hypertension Myocardial infarction (mother and father) No Pertinent Family Hx Physical Exam Vital Signs - First Documented 05/27/18 08:59 Temp 97.4 Pulse 105 Resp 16 B/P (MAP) 141/98 (112) Pulse Ox 98 O2 Delivery Room Air Capillary Refill : Less Than 3 Seconds Height, Weight, BMI Height: 5'3.00" Weight: 138lbs. 8.0oz. [id number]; 24.6 BMI Method:Stated General Appearance: WD/WN, no apparent distress HEENT: PERRL/EOMI, pharynx normal Respiratory: chest non-tender, lungs clear, normal breath sounds, no respiratory distress, no accessory muscle use Cardiovascular: normal peripheral pulses, regular rate, rhythm, other (mild pedal edema) Gastrointestinal: normal bowel sounds, non tender, soft Extremities: normal capillary refill, pedal edema (mild) Neurologic/Psychiatric: alert, oriented x 3, other (anxious affect) Progress/Results/Core Measures Results/Orders My Orders Orders - MARICHUY WILLIS Alprazolam Tablet (Xanax Tablet) (05/27/18 09:30) Acetaminophen Tablet (Tylenol Tablet) (05/27/18 10:30) Medications Given in ED Current Medications Medications Dose Ordered Sig/Victorina Route Start Time Stop Time Status Last Admin Dose Admin Alprazolam 0.25 mg ONCE ONCE PO 05/27/18 09:30 05/27/18 09:31 DC 05/27/18 09:36 0.25 MG Vital Signs/I&O 05/27/18 08:59 Temp 97.4 Pulse 105 Resp 16 B/P (MAP) 141/98 (112) Pulse Ox 98 O2 Delivery Room Air Blood Pressure Mean: 112 Progress Progress Note #1: Time: 09:35 Progress Note We'll start with half a milligram of Xanax. We'll treat her for 3 days with some Lasix by mouth at home and have her follow-up with primary care at the end of the week. As far as her pain medicine we've encouraged her to start using Tylenol and ibuprofen and weaning off of the hydrocodone if she doesn't needed. Progress Note #2: Time: 10:24 Progress Note The patient states her anxiety is starting to get better now. She wants something different for her pain. Reviewed labs from 05/13 and at that time her creatinine was okay. Put her out on some tramadol, Xanax and 3 days of Lasix and follow-up with PCP. Departure Impression Primary Impression: Anxiety Additional Impressions: Pedal edema Status post partial resection of colon Disposition: HOME, SELF-CARE Condition: Improved Departure-Patient Inst. Decision time for Depature: 10:25 Referrals: ANGELITO WAN WILLIAM J DO (PCP/Family) Primary Care Physician Patient Instructions: Anxiety, Adult (DC) Add. 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 You may use one thousand milligrams of Tylenol every 8 hours as needed for moderate pain. Keep your follow-up appointments with Dr. Wan. If you have anxiety or agitation you can take one or 2 tablets of Xanax every 6 hours as needed. For the swelling in your feet you can take one tablet of Lasix daily for the next 3 days and then follow up later this week with your primary care provider for reevaluation. If you experience nausea you can take one tablet of Zofran every [address] it on the tongue. All discharge instructions reviewed with patient and/or family. Voiced understanding. Scripts Furosemide (Lasix) 20 Mg Tablet 20 MG PO DAILY for 3 Days, #3 TAB 0 Refills Prov: MARICHUY WILLIS 05/27/18 Alprazolam (Xanax) 0.5 Mg Tablet 1-2 TAB PO Q6H PRN for ANXIETY for 7 Days, #15 TAB 0 Refills Prov: MARICHUY WILLIS 05/27/18 Tramadol HCl (Tramadol HCl) 50 Mg Tablet 50 MG PO Q6H PRN for PAIN, #20 TAB 0 Refills Prov: MARICHUY WILLIS 05/27/18 Ondansetron (Ondansetron Odt) 4 Mg Tab.rapdis 4 MG PO Q6H PRN for NAUSEA/VOMITING, #8 TAB 0 Refills Prov: MARICHUY WILLIS 05/27/18 Copy Copies To 1: ANGELITO WAN DO; ETHEL MG TITUS J May 27, 2018 09:37
[2018-05-27] MEDS ORDERED: ACETAMINOPHEN 500 MG TAB (TYLENOL) PO ONE (10:30)
[2018-05-27] MEDS ORDERED: TRAM50TA2 PO (10:31)
[2018-05-27] MEDS ORDERED: ONDA4TAB11 PO (10:31)
[2018-05-27] MEDS ORDERED: ALPR0.5T PO (10:31)
[2018-05-27] MEDS ORDERED: FURO-125 PO (10:31)
[2018-05-27 10:44] VITALS: BP 144/77
== END 2018-05-27 10:49 | disposition home or self-care (01) ==
LOC: EDUNIT# 08:49 → ER 08:50
DX: F41.9 Anxiety disorder, unspecified (principal); R60.9 Edema, unspecified; I11.0 Hypertensive heart disease with heart failure; I50.9 Heart failure, unspecified; I25.10 Atherosclerotic heart disease of native coronary artery without angina pectoris; E78.00 Pure hypercholesterolemia, unspecified; E03.9 Hypothyroidism, unspecified; F32.9 Major depressive disorder, single episode, unspecified; Z87.440 Personal history of urinary (tract) infections; Z87.19 Personal history of other diseases of the digestive system; Z88.5 Allergy status to narcotic agent; Z88.1 Allergy status to other antibiotic agents; Z98.890 Other specified postprocedural states; Z88.8 Allergy status to other drugs, medicaments and biological substances; Z95.1 Presence of aortocoronary bypass graft; Z90.710 Acquired absence of both cervix and uterus
CPT/HCPCS: 99283

== ENCOUNTER 2018-05-31 10:53 | Inpatient (IN) | payer MEDICARE, OTHER ==
[~2018-05-31] VITALS: Ht 160 cm; Wt 64.5 kg
[~2018-05-31 10:53] MED LIST changes: +ALPR0.5T PO; +FURO-125 PO; +ONDA4TAB11 PO
--- OUTSIDE RECORDS SUMMARY | 2018-05-31 11:07 | XMS REPORT | Continuity of Care Document ---
Author Author [facility] Address Unknown Phone Unavailable Allergies Active Description Code Type Severity Reaction Onset Reported/Identified Relationship to Patient Clinical Status Yes olanzapine [id number] Drug Allergy Unknown N/A 08/03/2008 Yes codeine Drug Allergy 02/16/2011 Yes codeine Drug Allergy N/A N/A 02/16/2011 Yes Cefadroxil Drug Allergy N/A N/A 08/20/2013 Yes cefadroxil [id number] Drug Allergy Unknown N/A 05/13/2018 Yes codeine [id number] Drug Allergy Unknown N/A 05/13/2018 Yes cefadroxil [id number] Drug Allergy Mild MAKES HER DIZZY 05/15/2018 [...] PF PSYCHIC FACTORS MED COND 05/05/2008 JENNIFER KNITTING MACHINE MECHANIC, CODY 296.30 MAJOR DEPRESSIVE AFFECTIVE DISORDER RECURRENT EPISODE UNSPECIFIED DEGREE 05/05/2008 JENNIFER KNITTING MACHINE MECHANIC, CODY 300.21 AN PANIC DIS W AGORA 05/05/2008 JENNIFER KNITTING MACHINE MECHANIC, CODY 307.47 SI DYSSOMNIA NOS 05/05/2008 JENNIFER KNITTING MACHINE MECHANIC, CODY 316 PF PSYCHIC FACTORS MED COND 05/05/2008 JENNIFER KNITTING MACHINE MECHANIC, CODY 296.30 MAJOR DEPRESSIVE AFFECTIVE DISORDER RECURRENT EPISODE UNSPECIFIED DEGREE 05/05/2008 JENNIFER KNITTING MACHINE MECHANIC, CODY 300.21 AN PANIC DIS W AGORA 05/05/2008 JENNIFER KNITTING MACHINE MECHANIC, CODY 307.47 SI DYSSOMNIA NOS 05/05/2008 JENNIFER [...] MD 300.00 AN ANXIETY UNSPEC 05/26/2008 JENNIFER KNITTING MACHINE MECHANIC, CODY 296.32 MAJOR DEPRESSIVE AFFECTIVE DISORDER RECURRENT EPISODE MODERATE DEGREE 05/26/2008 JENNIFER KNITTING MACHINE MECHANIC, CODY 300.00 AN ANXIETY UNSPEC 05/26/2008 JENNIFER KNITTING MACHINE MECHANIC, CODY 296.32 MAJOR DEPRESSIVE AFFECTIVE DISORDER RECURRENT EPISODE MODERATE DEGREE 05/26/2008 JENNIFER KNITTING MACHINE MECHANIC, CODY 300.00 AN ANXIETY UNSPEC 01/28/2009 294.9 [...] DUE TO CONDITIONS CLASSIFIED ELSEWHERE 01/28/2009 JENNIFER KNITTING MACHINE MECHANIC, CODY 294.9 UNSPECIFIED PERSISTENT MENTAL DISORDERS DUE TO CONDITIONS CLASSIFIED ELSEWHERE 01/28/2009 JENNIFER TIM CODY 294.9 UNSPECIFIED PERSISTENT MENTAL DISORDERS DUE TO CONDITIONS CLASSIFIED ELSEWHERE 04/20/2011 Ot 272.4 HYPERLIPIDEMIA NEC/NOS 04/20/2011 Ot 401.9 HYPERTENSION NOS 04/20/2011 Ot 414.01 CORONARY ATHEROSCLEROSIS OF [place] CORON 04/20/2011 Ot 414.02 CORON ATHEROSCLEROSIS AUTOLOG [...] NOS 09/10/2012 Ot 414.01 CORONARY ATHEROSCLEROSIS OF [place] CORON 09/10/2012 Ot 414.02 CORON ATHEROSCLEROSIS AUTOLOG [...] AN PANIC DIS W/O AGORA 09/19/2012 JENNIFER KNITTING MACHINE MECHANIC, CODY 300.01 AN PANIC DIS W/O AGORA 09/19/2012 JENNIFER KNITTING MACHINE MECHANIC, CODY 300.01 AN PANIC DIS W/O AGORA [...] 428.0 07/30/2014 ESA BETTS Ot 401.9 07/30/2014 SEA BETTS Ot 414.00 07/30/2014 ESA BETTS Ot [...] 428.0 09/19/2015 NENO PA, ESA K Ot 433.10 09/21/2015 Ot 396.3 09/21/2015 [...] MD Ot I25.10 ATHSCL HEART DISEASE OF [place] CORONARY 09/21/2015 SUZETTE COCHRAN MD, Ot I25.82 [...] 09/21/2015 SUZETTE COCHRAN MD, Ot Z79.899 OTHER ALF (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 09/21/2015 SUZETTE COCHRAN MD, [...] DIMAS SHERMAN, SUZETTE Hardy Ot I65.02 10/03/2015 DMIAS SHERMAN, SUZETTE Hardy Ot I65.23 10/03/2015 SUZETTE [...] ROSITA CRUZP Ot V49.81 10/11/2015 ROSITA CRUZ RUNNING INSTRUCTOR Ot V76.12 10/11/2015 ESA BETTS Ot 401.9 10/11/2015 NENO PA, ESA Cote Ot 414.00 10/11/2015 NENO RIZO, ESA Cote Ot 426.4 10/11/2015 NENO RIZO, ESA [...] NEC/NOS 11/18/2015 Ot 414.01 CORONARY ATHEROSCLEROSIS OF [place] CORON 11/18/2015 Ot 440.20 ATHEROSCLEROSIS [place] ARTERIES EXTREMIT 11/18/2015 Ot 998.12 HEMATOMA COMPLIC [...] RT BUNDLE BRANCH BLOCK 11/18/2015 ROSITA CRUZ RUNNING INSTRUCTOR Ot V49.81 ASYMPT POSTMENOPAUSAL STATUS (AGE-RELATE 11/18/2015 ROSITA CRUZ RUNNING INSTRUCTOR Ot V76.12 OTH SCREEN MAMMO-MALIGN NEOPLASM OF [...] MD, Ot I25.10 ATHSCL HEART DISEASE OF [place] CORONARY 11/25/2015 SUZETTE COCHRAN MD, Ot I25.82 [...] 11/25/2015 SUZETTE COCHRAN MD Ot Z79.899 OTHER ALF (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 11/25/2015 SUZETTE COCHRAN MD Ot Z95.1 PRESENCE OF AORTOCORONARY BYPASS GRAFT 07/23/2016 Ot 272.4 HYPERLIPIDEMIA NEC/NOS 07/23/2016 Ot 414.01 CORONARY ATHEROSCLEROSIS OF [place] CORON 07/23/2016 Ot 440.20 ATHEROSCLEROSIS [place] ARTERIES EXTREMIT 07/23/2016 Ot 998.12 HEMATOMA COMPLIC A PROC 07/23/2016 Ot 401.9 HYPERTENSION NOS 07/23/2016 Ot V58.69 OTH MED,LT, CURRENT USE 07/23/2016 Ot 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 07/23/2016 Ot 397.0 TRICUSPID VALVE DISEASE [...] RT BUNDLE BRANCH BLOCK 09/03/2016 ROSITA CRUZ RUNNING INSTRUCTOR Ot V49.81 ASYMPT POSTMENOPAUSAL STATUS (AGE-RELATE 09/03/2016 ROSITA CRUZ RUNNING INSTRUCTOR Ot V76.12 OTH SCREEN MAMMO-MALIGN NEOPLASM OF [...] MD Ot I25.10 ATHSCL HEART DISEASE OF [place] CORONARY 01/18/2017 SUZETTE COCHRAN MD Ot 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 01/18/2017 SUZETTE COCHRAN MD Ot M79.7 FIBROMYALGIA 02/08/2017 SUZETTE COCHRAN MD Ot E78.2 MIXED HYPERLIPIDEMIA 02/08/2017 SUZETTE COCHRAN MD Ot I10 ESSENTIAL (PRIMARY) HYPERTENSION 02/08/2017 SUZETTE COCHRAN MD Ot I25.10 ATHSCL HEART DISEASE OF [place] CORONARY 02/08/2017 SUZETTE COCHRAN MD Ot 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 02/08/2017 SUZETTE COCHRAN MD Ot M79.7 FIBROMYALGIA 03/04/2017 SUZETTE COCHRAN MD Ot E78.2 MIXED HYPERLIPIDEMIA 03/04/2017 SUZETTE COCHRAN MD Ot I10 ESSENTIAL (PRIMARY) HYPERTENSION 03/04/2017 SUZETTE COCHRAN MD Ot I25.10 ATHSCL HEART DISEASE OF [place] CORONARY 03/04/2017 SUZETTE COCHRAN MD Ot I65.23 [...] MD Ot I25.10 ATHSCL HEART DISEASE OF [place] CORONARY 01/09/2018 SUZETTE COCHRAN MD Ot 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 01/09/2018 SUZETTE COCHRAN MD Ot M79.7 FIBROMYALGIA 01/15/2018 SUZETTE COCHRAN MD Ot E78.5 HYPERLIPIDEMIA, UNSPECIFIED 01/15/2018 SUZETTE COCHRAN MD 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 01/15/2018 SUZETTE COCHRAN MD Ot I11.0 HYPERTENSIVE HEART DISEASE WITH HEART FA 01/15/2018 SUZETTE COCHRAN MD Ot I25.10 ATHSCL HEART DISEASE OF [place] CORONARY 01/15/2018 SUZETTE COCHRAN MD Ot I50.9 HEART FAILURE, UNSPECIFIED 02/04/2018 SUZETTE COCHRAN MD Ot E78.5 HYPERLIPIDEMIA, UNSPECIFIED 02/04/2018 SUZETTE COCHRAN MD 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 02/04/2018 SUZETTE COCHRAN MD Ot I11.0 HYPERTENSIVE HEART DISEASE WITH HEART FA 02/04/2018 SUZETTE COCHRAN MD Ot I25.10 ATHSCL HEART DISEASE OF [place] CORONARY 02/04/2018 SUZETTE COCHRAN MD Ot I50.9 HEART FAILURE, UNSPECIFIED 02/17/2018 SUZETTE COCHRAN MD Ot E78.5 HYPERLIPIDEMIA, UNSPECIFIED 02/17/2018 SUZETTE COCHRAN MD 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 02/17/2018 SUZETTE COCHRAN MD Ot I11.0 HYPERTENSIVE HEART DISEASE WITH HEART FA 02/17/2018 SUZETTE COCHRAN MD Ot I25.10 ATHSCL HEART DISEASE OF [place] CORONARY 02/17/2018 SUZETTE COCHRAN MD Ot I50.9 [...] MD Ot I25.10 ATHSCL HEART DISEASE OF [place] CORONARY 05/13/2018 SUZETTE COCHRAN MD Ot 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 05/13/2018 SUZETTE COCHRAN MD Ot M79.7 FIBROMYALGIA 05/13/2018 SUZETTE COCHRAN MD Ot E78.5 HYPERLIPIDEMIA, UNSPECIFIED 05/13/2018 SUZETTE COCHRAN MD 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 05/13/2018 SUZETTE COCHRAN MD, Ot I11.0 HYPERTENSIVE HEART DISEASE WITH HEART FA 05/13/2018 SUZETTE COCHRAN MD, Ot I25.10 ATHSCL HEART DISEASE OF [place] CORONARY 05/13/2018 SUZETTE COCHRAN MD Ot I50.9 [...] MD, Ot I25.10 ATHSCL HEART DISEASE OF [place] CORONARY 05/13/2018 SUZETTE COCHRAN MD Ot 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 05/13/2018 SUZETTE COCHRAN MD Ot M79.7 FIBROMYALGIA 05/13/2018 SUZETTE COCHRAN MD, Ot E78.5 HYPERLIPIDEMIA, UNSPECIFIED 05/13/2018 SUZETTE COCHRAN MD 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 05/13/2018 SUZETTE COCHRAN MD, Ot I11.0 HYPERTENSIVE HEART DISEASE WITH HEART FA 05/13/2018 SUZETTE COCHRAN MD, Ot I25.10 ATHSCL HEART DISEASE OF [place] CORONARY 05/13/2018 SUZETTE COCHRAN MD Ot I50.9 [...] Ot Z95.5 PRESENCE OF CORONARY ANGIOPLASTY IMPLANT 05/30/2018 ALBA SHERMAN, MARICHUY Hardy Ot E03.9 HYPOTHYROIDISM, UNSPECIFIED 05/30/2018 ALBA SHERMAN, MARICHUY Hardy Ot E78.00 PURE HYPERCHOLESTEROLEMIA, UNSPECIFIED 05/30/2018 MARICHUY WILLIS MD Ot F32.9 MAJOR DEPRESSIVE DISORDER, SINGLE EPISOD 05/30/2018 MARICHUY WILLIS MD Ot F41.9 ANXIETY DISORDER, UNSPECIFIED 05/30/2018 MARICHUY WILLIS MD Ot I11.0 HYPERTENSIVE HEART DISEASE WITH HEART FA 05/30/2018 MARICHUY WILLIS MD Ot I25.10 ATHSCL HEART DISEASE OF [place] CORONARY 05/30/2018 MARICHUY WILLIS MD Ot I50.9 HEART FAILURE, UNSPECIFIED 05/30/2018 MARICHUY WILLIS MD Ot R60.9 EDEMA, UNSPECIFIED 05/30/2018 MARICHUY WILLIS MD Ot Z87.19 PERSONAL HISTORY OF OTHER DISEASES OF TH 05/30/2018 MARICHUY WILLIS MD Ot Z87.440 PERSONAL HISTORY OF URINARY (TRACT) INFE 05/30/2018 MARICHUY WILLIS MD Ot Z88.1 ALLERGY STATUS TO OTHER ANTIBIOTIC AGENT 05/30/2018 MARICHUY WILLIS MD, Ot Z88.5 ALLERGY STATUS TO NARCOTIC AGENT STATUS 05/30/2018 MARICHUY WILLIS MD Ot Z88.8 ALLERGY STATUS TO OTH DRUG/MEDS/BIOL SUB 05/30/2018 MARICHUY WILLIS MD Ot Z90.710 ACQUIRED ABSENCE OF BOTH CERVIX AND UTER 05/30/2018 MARICHUY WILLIS MD Ot Z95.1 PRESENCE OF AORTOCORONARY BYPASS GRAFT 05/30/2018 MARICHUY WILLIS MD Ot Z98.890 OTHER SPECIFIED POSTPROCEDURAL STATES Procedures Code Description Performed By Performed On 45.16 ESOPHAGOGASTRODUODENOSCOPY [ EGD] W/CLOSE 05/23/2012 82868 PSYCH DIAGNOSTIC EVALUATION 09/25/2012 39234 PSYTX PT&/FAMILY 45 MINUTES 11/20/2012 07573 PSYTX PT&/FAMILY 45 MINUTES 01/06/2013 30635 PSYTX PT&/FAMILY 45 MINUTES 03/05/2013 92055 SLEEP STUDY 04/10/2013 14810 PSYTX PT&/FAMILY 45 MINUTES 04/13/2013 32286 PSYTX PT&/FAMILY 45 MINUTES 05/01/2013 06249 PSYTX PT&/FAMILY 45 MINUTES 08/21/2013 56139 PSYTX PT&/FAMILY 45 MINUTES 09/08/2013 14611 PSYTX PT&/FAMILY 45 MINUTES 09/23/2013 08465 PSYTX PT&/FAMILY 45 MINUTES 11/10/2013 [id number] RESECTION OF RIGHT LARGE INTESTINE, OPEN 05/13/2018 [id number] REPAIR ABDOMINAL WALL, OPEN APPROACH 05/13/2018 Results [...] culture - 05/13/18 12:48 Bacterial urine culture [id number] NRG COLONY COUNT >100,000/ML NR FTX;REPORTABLE ID/SENSITIVITY REPORTED 05/15/18 12:[facility] Sensitivity [facility] - 05/13/18 12:48 [...] Status Pt. Type Provider Facility Loc./Unit Complaint [id number] 02/25/2014 15:48:00 02/25/2014 23:59:59 CLS Outpatient CODY RODRIGUEZ APRN [id number] 02/25/2014 15:48:00 02/25/2014 23:59:59 CLS Outpatient CODY RODRIGUEZ APRN [id number] 11/26/2013 09:48:00 11/26/2013 23:59:59 CLS Outpatient DAVID ALAN MD [id number] 11/10/2013 17:55:00 11/10/2013 23:59:59 DUTCH Outpatient ALCIDES SEPULVEDA PHD [id number] 09/22/2013 16:49:00 09/22/2013 23:59:59 CLS Outpatient ALCIDES SEPULVEDA PHD [id number] 09/08/2013 15:53:00 09/08/2013 23:59:59 DUTCH Outpatient ALCIDES SEPULVEDA PHD [id number] 08/21/2013 15:57:00 08/21/2013 23:59:59 DUTCH Outpatient ALCIDES SEPULVEDA PHD [id number] 08/20/2013 09:49:00 08/20/2013 23:59:59 CLS Outpatient DAVID ALAN MD [id number] 04/28/2013 15:54:00 04/28/2013 23:59:59 CLS Outpatient ALCIDES SEPULVEDA PHD [id number] 04/10/2013 14:55:00 04/10/2013 23:59:59 DUTCH Outpatient ALCIDES SEPULVEDA PHD [id number] 09/19/2012 11:27:00 09/19/2012 23:59:59 CLS Outpatient SOLEDAD MAYER DO [id number] 08/04/2012 14:29:00 08/04/2012 23:59:59 [place] [id number] 08/31/2011 14:27:00 08/31/2011 23:59:59 CLS Outpatient [id number] 08/31/2011 14:27:00 08/31/2011 23:59:59 CLS Outpatient [id number] 03/04/2013 14:49:00 Document Registration [id number] 01/06/2013 09:59:00 Document Registration [id number] 11/19/2012 12:48:00 Document Registration [id number] 02/17/2015 10:02:59 ACT Document Registration [id number] 05/27/2018 08:50:00 05/27/2018 10:49:00 DIS Outpatient MARICHUY WILLIS MD [facility] ER ANXIETY;SOB [id number] 05/13/2018 15:20:00 05/18/2018 13:25:00 DIS Outpatient ANGELITO WAN DO [facility] 4TH CECAL VOLVULUS,UTI [id number] 01/13/2018 11:19:00 01/13/2018 23:59:59 CLS Outpatient SUZETTE COCHRAN MD [facility] CARD I25.10 CAD [id number] 01/17/2017 12:51:00 01/17/2017 23:59:59 CLS Outpatient SUZETTE COCHRAN MD [facility] CARD CAD I25.10 [id number] 09/05/2016 11:05:00 09/05/2016 23:59:59 CLS Outpatient ETHEL MG DO [facility] LAB N18.3 [id number] 09/21/2015 11:55:00 09/21/2015 18:55:00 DIS Outpatient SUZETTE COCHRAN MD [facility] CATH UNSTABLE ANGINA, CAD, HTN,HLP [id number] 02/17/2015 10:02:00 02/17/2015 23:59:59 CLS Outpatient ESA BETTS [facility] CARD CAD,CHF,MODESTA, HLP [id number] 06/15/2014 11:44:00 06/15/2014 23:59:59 CLS Outpatient ESA BETTS [facility] CARD CAD,CHF,HTN [id number] 05/08/2014 12:07:00 05/09/2014 13:15:00 DIS Inpatient SUZETTE COCHRAN MD [facility] CSD HYPOTENSION ATYPICAL CHEST PAIN [id number] 10/22/2013 09:21:00 10/22/2013 23:59:59 CLS Outpatient ROSITA CRUZ [facility] RAD SCREENING,POST MENAPAUSAL STATUS [id number] 06/09/2013 19:51:00 06/10/2013 06:25:00 DIS Outpatient RAY GAMBOA MD [facility] SLEEP KRISTAL [id number] 04/29/2013 20:58:00 04/30/2013 07:10:00 DIS Outpatient SOLEDAD MAYER DO [facility] SLEEP KRISTAL,INSOMNIA [id number] 04/01/2013 21:23:00 04/01/2013 23:28:00 DIS Emergency TRUDY LANGFORD [facility] ER FALL/RIGHT RING FINGER INJURY [id number] 03/19/2013 19:06:00 03/19/2013 23:59:59 CLS Outpatient [id number] 01/31/2013 11:45:00 01/31/2013 23:59:59 CLS Outpatient [id number] 05/31/2018 10:54:00 ACT Emergency MARICHUY WILLIS MD [facility] ER DISORIENTED/DIZZINESS [id number] 12/03/2016 00:00:00 Document Registration [id number] 09/19/2015 12:20:00 Document Registration [id number] 09/19/2015 12:20:00 Document Registration [id number] 09/10/2012 08:52:00 Document Registration [id number] 09/02/2012 10:25:00 Document Registration [id number] 05/21/2012 11:55:00 Document Registration [id number] 05/20/2012 08:59:00 Document Registration [id number] 04/25/2012 21:02:00 Document Registration [id number] 07/31/2011 13:00:00 Document Registration [id number] 07/31/2011 12:57:00 Document Registration [id number] 06/01/2011 09:17:00 Document Registration [id number] 04/26/2011 15:23:00 Document Registration [id number] 04/20/2011 06:50:00 Document Registration [id number] 03/06/2011 07:04:00 Document Registration [id number] 06/22/2010 09:22:00 Document Registration [id number] 05/09/2010 09:42:00 Document Registration [id number] 04/24/2010 06:30:00 Document Registration [id number] 03/30/2010 06:39:00 Document Registration [id number] 02/14/2018 08:00:00 02/14/2018 23:59:59 [facility] [place]
[2018-05-31] MEDS ORDERED: NS IV 500 ML 500 ML IV SCH (11:15)
--- NOTE | 2018-05-31 11:19 | ED General ---
General Chief Complaint: Altered Mental Status Stated Complaint: DISORIENTED/DIZZINESS Source of Information: Patient, Family Exam Limitations: No Limitations History of Present Illness Date Seen by Provider: May 31, 2018 Time Seen by Provider: 11:14 Initial Comments To ER with reports of dizziness and disorientation that has been going on for about a week. History is provided by her who brought her here. Patient had partial colectomy for cecal volvulus about 2 weeks ago. She was given hydrocodone and the states that she became disoriented. He stopped giving her the hydrocodone. She was then seen here for anxiety in the emergency room last week was given Xanax, Lasix, tramadol. These do not seem to be improving the mental status or the pain. Her last bowel movement was 4 days ago but the states she is not eating much. She is passing gas. Timing/Duration: Getting Worse Severity: Moderate Allergies and Home Medications Allergies Coded Allergies: codeine (Verified Allergy, Unknown, 05/13/18) nausea/faints olanzapine (Verified Allergy, Unknown, 08/03/08) cefadroxil (Verified Adverse Reaction, Mild, MAKES HER DIZZY AND FAINTS, 05/15/18) faints Home Medications Alprazolam 0.5 Mg Tablet, 1-2 TAB PO Q6H PRN for ANXIETY Prescribed by: MARICHUY WILLIS on 05/27/18 1031 Atorvastatin Calcium 80 Mg Tablet, 80 MG PO HS, (Reported) Brexpiprazole 1 Mg Tablet, 1 MG PO HS, (Reported) Cholecalciferol (Vitamin D3) 5,000 Unit Capsule, 5,000 UNIT PO HS, (Reported) Colestipol HCl 1 Gm Tablet, 1 GM PO BID, (Reported) Cyanocobalamin (Vitamin B-12) 1,000 Mcg Tablet, 1,000 MCG PO HS, (Reported) Duloxetine HCl 60 Mg Capsule.dr, 60 MG PO BID, (Reported) Furosemide 20 Mg Tablet, 20 MG PO DAILY Prescribed by: MARICHUY WILLIS on 05/27/18 1031 Gabapentin 600 Mg Tablet, 600 MG PO BID, (Reported) Guaifenesin 400 Mg Tablet, 400 MG PO Q4H PRN for CONGESTION, (Reported) Hydrocodone/Acetaminophen 1 Each Tablet, 1-2 EACH PO Q4-6hr PRN for PAIN- MODERATE Prescribed by: DIANELYS CORDON on 05/18/18 1110 Levothyroxine Sodium 88 Mcg Tablet, 88 MCG PO HS, (Reported) Loperamide HCl 2 Mg Tablet, 2 MG PO UD PRN for DIARRHEA, (Reported) Metoprolol Tartrate 25 Mg Tablet, 25 MG PO BID, (Reported) Mv,Ca,Iron,Min/FA/Phytosterol 1 Each Tablet, 1 TAB PO HS, (Reported) Niacin 1,000 Mg Tab.er.24h, 1,000 MG PO HS, (Reported) Palmer-3 Acid Ethyl Esters 1 Gm Capsule, 2 GM PO BID, (Reported) TAKES 2 (1GM) CAPSULES Omeprazole 20 Mg Capsule.dr, 20 MG PO HS, (Reported) Ondansetron 4 Mg Tab.rapdis, 4 MG PO Q6H PRN for NAUSEA/VOMITING Prescribed by: MARICHUY WILLIS on 05/27/18 1031 Tramadol HCl 50 Mg Tablet, 50 MG PO Q6H PRN for PAIN Prescribed by: MARICHUY WILLIS on 05/27/18 1031 Patient Home Medication List Home Medication List Reviewed: Yes Review of Systems Review of Systems Constitutional: see HPI; No chills, No fever; weakness EENTM: see HPI Respiratory: no symptoms reported Cardiovascular: no symptoms reported Gastrointestinal: abdominal pain, other Genitourinary: no symptoms reported Musculoskeletal: no symptoms reported Skin: no symptoms reported, other Psychiatric/Neurological: See HPI, Other (patient does acknowledge her own confusion. She reports to me that yesterday she forgot where she was going and asked her where she was at. On arrival to the emergency room she states "whos house am i in?") Hematologic/Lymphatic: No Symptoms Reported Past Lqfncox-Hwkflm-Vfngxz Hx Patient Social History Alcohol Use: Denies Use Recreational Drug Use: No Smoking Status: Never a Smoker 2nd Hand Smoke Exposure: No Recent Foreign Travel: No Contact w/Someone Who Travel: No Recent Hopitalizations: Yes Physical Abuse: No Sexual Abuse: No Mistreated: No Fear: No Immunizations Up To Date Date of Pneumonia Vaccine: Mar 31, 2013 Date of Influenza Vaccine: May 15, 2018 Seasonal Allergies Seasonal Allergies: No Past Medical History Surgeries: Yes (Hiatal Hernia, Breast BX, Bladder surgery x 3 (had mesh sling, tie up, ) Abdominal, Bladder Surgery, CABG, Hysterectomy Respiratory: Yes Sleep Apnea Currently Using CPAP: Yes Currently Using BIPAP: No Cardiac: Yes Coronary Artery Disease, High Cholesterol, Hypertension Neurological: No 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 Genitourinary: Yes Bladder Infection, Renal Failure, UTI-Chronic Gastrointestinal: Yes Diverticulosis, Irritable Bowel Musculoskeletal: Yes Arthritis, Fibromyalgia Endocrine: Yes Hypothyroidsim HEENT: Yes Cataract Loss of Vision: Denies Cancer: No Psychosocial: Yes Anxiety, Depression Integumentary: No Blood Disorders: No Family Medical History Alzheimer's disease (mother) Cardiovascular disease (mother and father) Carotid artery stenosis (father) Hypercholesterolemia (mother and father) Hypertension Myocardial infarction (mother and father) No Pertinent Family Hx Physical Exam Vital Signs Vital Signs - First Documented 05/31/18 11:10 Temp 97.6 Pulse 75 Resp 20 B/P (MAP) 129/83 (98) Pulse Ox 94 Capillary Refill : Height, Weight, BMI Height: 5'3.00" Weight: 138lbs. 8.0oz. [id number]; 24.6 BMI Method:Stated General Appearance: No Apparent Distress, WD/WN, Other (weak and frail appearing) Eyes: Bilateral Eye Normal Inspection, Bilateral Eye PERRL, Bilateral Eye EOMI HEENT: PERRL/EOMI Neck: Full Range of Motion, Normal Inspection, Other (mild to moderate jugular vein distention) Respiratory: No Accessory Muscle Use, No Respiratory Distress, Rales (left lung base) Cardiovascular: Regular Rate, Rhythm, Normal Peripheral Pulses, Other (faint systolic murmur) Gastrointestinal: Soft, Tenderness, Other (abdominal incision is clean dry and intact with gisella in place no surrounding erythema or drainage. Bowel sounds are present.) Extremity: No Calf Tenderness, Other Neurologic/Psychiatric: Alert, No Motor/Sensory Deficits, Other (delirium. Upon arrival to the emergency room she states "whose house am I in?") Skin: Normal Color, Warm/Dry, Other (small skin tear to the anterior right upper arm) Focused Exam Lactate Level 05/31/18 11:44: Lactic Acid Level 2.37*H 05/31/18 13:13: Lactic Acid Level 2.56*H Lactic Acid Level Laboratory Tests Test 05/31/18 11:44 05/31/18 13:13 Lactic Acid Level 2.37 MMOL/L (0.50-2.00) *H 2.56 MMOL/L (0.50-2.00) *H Progress/Results/Core Measures Suspected Sepsis SIRS Temperature: Pulse: Respiratory Rate: Laboratory Tests 05/31/18 11:09: White Blood Count 13.8H Blood Pressure / Mean: 05/31/18 11:44: Lactic Acid Level 2.37*H 05/31/18 13:13: Lactic Acid Level 2.56*H Laboratory Tests 05/31/18 11:09: Creatinine 1.70H, Platelet Count 413H, Total Bilirubin 0.6 05/31/18 11:44: INR Comment 1.5H Results/Orders Lab Results Laboratory Tests Test 05/31/18 11:02 05/31/18 11:09 05/31/18 11:19 05/31/18 11:44 Range/Units Glucometer 185 H 70-110 MG/DL White Blood Count 13.8 H 4.3-11.0 10^3/uL Red Blood Count 3.40 L 4.35-5.85 10^6/uL Hemoglobin 11.3 L 11.5-16.0 G/DL Hematocrit 34 L 35-52 % Mean Corpuscular Volume 101 H 80-99 FL Mean Corpuscular Hemoglobin 33 25-34 PG Mean Corpuscular Hemoglobin Concent 33 32-36 G/DL Red Cell Distribution Width 13.7 10.0-14.5 % Platelet Count 413 H 130-400 10^3/uL Mean Platelet Volume 10.2 7.4-10.4 FL Neutrophils (%) (Auto) 73 42-75 % Lymphocytes (%) (Auto) 18 12-44 % Monocytes (%) (Auto) 8 0-12 % Eosinophils (%) (Auto) 1 0-10 % Basophils (%) (Auto) 0 0-10 % Neutrophils # (Auto) 10.1 H 1.8-7.8 X 10^3 Lymphocytes # (Auto) 2.4 1.0-4.0 X 10^3 Monocytes # (Auto) 1.1 H 0.0-1.0 X 10^3 Eosinophils # (Auto) 0.2 0.0-0.3 10^3/uL Basophils # (Auto) 0.1 0.0-0.1 10^3/uL Sodium Level 139 135-145 MMOL/L Potassium Level 3.9 3.6-5.0 MMOL/L Chloride Level 103 98-107 MMOL/L Carbon Dioxide Level 21 21-32 MMOL/L Anion Gap 15 H 5-14 MMOL/L Blood Urea Nitrogen 21 H 7-18 MG/DL Creatinine 1.70 H 0.60-1.30 MG/DL Estimat Glomerular Filtration Rate 29 BUN/Creatinine Ratio 12 Glucose Level 127 H 70-105 MG/DL Calcium Level 9.0 8.5-10.1 MG/DL Corrected Calcium 9.6 8.5-10.1 MG/DL Total Bilirubin 0.6 0.1-1.0 MG/DL Aspartate Amino Transf (AST/SGOT) 833 H 5-34 U/L Alanine Aminotransferase (ALT/SGPT) 435 H 0-55 U/L Alkaline Phosphatase 201 H 40-136 U/L Total Protein 5.9 L 6.4-8.2 GM/DL Albumin 3.2 3.2-4.5 GM/DL Lipase 75 8-78 U/L Urine Color YELLOW Urine Clarity CLEAR Urine pH 6 5-9 Urine Specific [place] 1.015 L 1.016-1.022 Urine Protein 2+ H NEGATIVE Urine Glucose (UA) NEGATIVE NEGATIVE Urine Ketones 1+ H NEGATIVE Urine Nitrite NEGATIVE NEGATIVE Urine Bilirubin NEGATIVE NEGATIVE Urine Urobilinogen 1 NORMAL MG/DL Urine Leukocyte Esterase 1+ H NEGATIVE Urine RBC (Auto) NEGATIVE NEGATIVE Urine RBC NONE /HPF Urine WBC 0-2 /HPF Urine Squamous Epithelial Cells NONE /HPF Urine Crystals NONE /LPF Urine Bacteria NEGATIVE /HPF Urine Casts NONE /LPF Urine Mucus NEGATIVE /LPF Urine Culture Indicated NO Prothrombin Time 18.6 H 12.2-14.7 SEC INR Comment 1.5 H 0.8-1.4 Lactic Acid Level 2.37 *H 0.50-2.00 MMOL/L B-Type Natriuretic Peptide 4576.7 H <100.0 PG/ML Test 05/31/18 13:13 Range/Units Lactic Acid Level 2.56 *H 0.50-2.00 MMOL/L Ammonia 31 11-32 UMOL/L Acetaminophen Level < 10 L 10-30 UG/ML My Orders Orders - ANKITA MAY PUG MILL OPERATOR HELPER Cbc With Automated Diff (05/31/18 11:13) Comprehensive Metabolic Panel (05/31/18 11:13) Lipase (05/31/18 11:13) Ua Culture If Indicated (05/31/18 11:13) Straight Cath (Urinary) (05/31/18 11:13) Iv Heplock-Insert (Order) (05/31/18 11:13) Chest 1 View, Ap/Pa Only (05/31/18 11:13) Blood Culture (05/31/18 11:13) Lactic Acid Analyzer (05/31/18 11:13) Ns Iv 500 Ml (Sodium Chloride 0.9%) (05/31/18 11:15) Fentanyl Injection (Sublimaze Injection (05/31/18 11:15) Acetaminophen (05/31/18 12:02) Protime With Inr (05/31/18 12:07) Ammonia (05/31/18 12:07) BNP (05/31/18 12:08) Ct Chest/Abdomen/Pelvis Wo (05/31/18 12:15) Us Gallbladder [id number] (05/31/18 12:29) Piperacillin Sodium/Tazobactam (Zosyn Vi (05/31/18 12:45) Furosemide Injection (Lasix Injection) (05/31/18 13:15) Medications Given in ED Current Medications Medications Dose Ordered Sig/Victorina Route Start Time Stop Time Status Last Admin Dose Admin Piperacillin Sod/ Tazobactam Sod 4.5 gm/Sodium Chloride 100 ml @ 200 mls/hr ONCE ONCE IV 05/31/18 12:45 05/31/18 13:14 DC 05/31/18 13:14 200 MLS/HR Vital Signs/I&O 05/31/18 11:10 Temp 97.6 Pulse 75 Resp 20 B/P (MAP) 129/83 (98) Pulse Ox 94 Capillary Refill : Point of Care Testing Finger Stick Blood Glucose: 185 Blood Glucose Action Taken: RN Notified Diagnostic Imaging Diagonstic Imaging: CT Comments NAME: DEYSI HAGER Antony [facility] REC#: [id number] PT STATUS: REG ER : 1945 PHYSICIAN: ANKITA MAY APRN ADMIT DATE: 05/31/18/ER Draft Date of Exam:05/31/18 CT CHEST/ABDOMEN/PELVIS WO PROCEDURE: CT chest, abdomen, and pelvis without contrast. TECHNIQUE: Multiple contiguous axial images were obtained through the chest, abdomen, and pelvis without the use of intravenous contrast. INDICATION: Shortness of breath, disoriented The recent CT abdomen/pelvis exam of 05/13/2018 noted a cecal volvulus. In the interval since the prior exam the patient has undergone a surgical procedure. There are now surgical clips about the midportion of the transverse colon. There is no evidence for a recurrent volvulus. The prior study also noted diverticulosis of the sigmoid and descending colon. There is no evidences for diverticulitis however. On this study there is still no clearance for distortion of the pericolonic fat to suggest acute diverticulitis. In the interval since the previous study, mild distortion of the mesenteric fat has developed throughout the abdomen and pelvis. This is probably a sequelae of the patient's recent surgical procedure. There is also a small amount of fluid in the paracolic gutter on the right. There is also 2 x 3 x 3.7 cm oval collection of fluid in the right adnexa. This could represent a cyst arising from the right ovary if the right ovary still present. The uterus is surgically absent. The urinary bladder is grossly unremarkable. In the interval since the prior study a small amount of increased density has developed within the gallbladder. This could be related to sludge. The liver, spleen, pancreas, adrenals, kidneys, aorta and inferior vena cava show no sign of an acute abnormality. The stomach is not well-distended and consequently difficult to assess. Also, in the interval since the prior study, bibasilar pneumonia/atelectasis and bilateral pleural effusions have developed. The fluid on the right measures approximately 5.1 cm maximum depth while left side effusion is estimated to be 4.2 cm. The upper lungs are generally clear. The heart is enlarged but stable when compared to the prior exam. Extensive coronary artery calcifications are noted. Aorta is not abnormally dilated. There are are a few droplets of gas in the right supraclavicular region. These are of uncertain etiology but may be related to a recent surgical procedure. The bone windows show no sign of a fracture or destructive lesion. IMPRESSION: 1. In the interval since the previous exam the patient has undergone a surgical procedure for correction of the cecal volvulus. There is no sign of recurrent volvulus. 2. There is mild distortion of mesenteric fat and there is some fluid in the paracolic gutter on the right and in the right adnexa. These findings may be a sequela of the patient's recent surgical procedure. There is no drainable abscess identified. 3. The increased density within the gallbladder could be related to sludge. If further study is desired, ultrasound would be recommended. 4. In the interval since the previous exam, bibasilar pneumonia/atelectasis and bilateral pleural effusions have developed. There is no acute cardiopulmonary abnormality noted otherwise. 5. These results were discussed with Ankita May APRN. Dictated on workstation # [id number] Dict: 05/31/18 1219 Trans: 05/31/18 1300 CV [id number] Interpreted by: SATNAM CAM MD Electronically signed by: NAME: DEYSI HAGER [facility] REC#: [id number] PT STATUS: REG ER : 1945 PHYSICIAN: ANKITA MAY PUG MILL OPERATOR HELPER ADMIT DATE: 05/31/18/ER Draft Date of Exam:05/31/18 US GALLBLADDER [id number] PROCEDURE: US Gallbladder. TECHNIQUE: Multiple real-time grayscale images were obtained over the right upper quadrant in various projections. INDICATION: Abdominal pain. FINDINGS: The previous gallbladder ultrasound exam of 04/26/2012 failed to show any sign of cholelithiasis or acute cholecystitis. The CT chest, abdomen, and pelvis exam performed earlier today did note a few small gallstones. On this exam, there is no clear evidence for cholelithiasis. However, the gallbladder wall does seem thickened. This may be secondary to incomplete distention as opposed to acute cholecystitis as there is no pericholecystic fluid present. The common bile duct is not dilated. The liver and right kidney are unremarkable. The pancreas is not well visualized. IMPRESSION: 1. The small calculi seen on the CT exam are not well visualized on this study. 2. The gallbladder wall is thickened, but this may be related to incomplete distention. 3. If further evaluation of the gallbladder for an acute abnormality is desired, then nuclear medicine hepatobiliary scan will be recommended. Dictated on workstation # [id number] Dict: 05/31/18 1342 Trans: 05/31/18 1351 [id number] Interpreted by: SATNAM CAM MD Electronically signed by: Departure Communication (Admissions) Time/Spoke to Admitting Phy: 13:42 Spoke with We will admit, consult surgery. I spoke with Dr. Mackay regarding the gallbladder wall thickening without cholelithiasis or sludge and a normal common bile duct. In combination with the elevated liver function studies, third spacing of fluids following abdominal surgery and markedly elevated BNP this may represent passive congestion of liver. 40 mg of Lasix ordered IV. Time/Spoke to Consulting Phy: 13:[address] Mackay. He will consult. Impression Primary Impression: LLL pneumonia Qualified Codes: J18.1 - Lobar pneumonia, unspecified organism Additional Impression: Elevated LFTs Disposition: ADMITTED INPATIENT Condition: Stable Admissions Decision to Admit Reason: Admit from ER (General) Decision to Admit/Date: May 31, 2018 Time/Decision to Admit Time: 13:02 Departure-Patient Inst. Referrals: ETHEL MG DO (PCP/Family) Primary Care Physician ANKITA MAY APRN May 31, 2018 11:19
[2018-05-31 11:21] LABS: BASOPHILS # (AUTO) 0.1 10^3/uL (0.0-0.1); BASOPHILS % (AUTO) 0 % (0-10); EOSINOPHILS # (AUTO) 0.2 10^3/uL (0.0-0.3); EOSINOPHILS % (AUTO) 1 % (0-10); HEMATOCRIT 34 % (35-52); HEMOGLOBIN 11.3 G/DL (11.5-16.0); LYMPHOCYTES # (AUTO) 2.4 X 10^3 (1.0-4.0); LYMPHOCYTES % (AUTO) 18 % (12-44); MEAN CORPUSCULAR HEMOGLOBIN 33 PG (25-34); MEAN CORPUSCULAR HGB CONC 33 G/DL (32-36); MEAN CORPUSCULAR VOLUME 101 FL (80-99); MEAN PLATELET VOLUME 10.2 FL (7.4-10.4); MONOCYTES # (AUTO) 1.1 X 10^3 (0.0-1.0); MONOCYTES % (AUTO) 8 % (0-12); NEUTROPHILS # (AUTO) 10.1 X 10^3 (1.8-7.8); NEUTROPHILS % (AUTO) 73 % (42-75); PLATELET COUNT 413 10^3/uL (130-400); RED CELL DISTRIBUTION WIDTH 13.7 % (10.0-14.5); WHITE BLOOD COUNT 13.8 10^3/uL (4.3-11.0)
[2018-05-31 11:28] LABS: BILIRUBIN,URINE NEGATIVE (NEGATIVE); CLARITY,URINE CLEAR; COLOR,URINE YELLOW; GLUCOSE, URINE (UA) NEGATIVE (NEGATIVE); KETONES,URINE 1+ (NEGATIVE); LEUKOCYTE ESTERASE ,URINE 1+ (NEGATIVE); NITRITE,URINE NEGATIVE (NEGATIVE); PH,URINE 6 (5-9); PROTEIN,URINE 2+ (NEGATIVE); UROBILINOGEN,URINE 1 MG/DL (NORMAL)
[2018-05-31 11:35] LABS: ALBUMIN 3.2 GM/DL (3.2-4.5); BILIRUBIN,TOTAL 0.6 MG/DL (0.1-1.0); CREATININE SERUM 1.7 MG/DL (0.60-1.30); POTASSIUM 3.9 MMOL/L (3.6-5.0); TOTAL PROTEIN 5.9 GM/DL (6.4-8.2)
[2018-05-31 11:39] LABS: BACTERIA,URINE NEGATIVE /HPF; WBC,URINE 0-2 /HPF
[2018-05-31 12:25] LABS: INR 1.5 (0.8-1.4); PROTHROMBIN TIME PATIENT 18.6 SEC (12.2-14.7)
--- NOTE | 2018-05-31 12:26 | Diagnostic Imaging Report ---
Indication: Shortness of air, disorientation. Comparison: 05/14/2018 Technique: Single frontal radiograph of the chest dated 05/31/2018. Findings: Postsurgical changes of a CABG. The cardiac silhouette is mildly increased in size. No significant pulmonary vascular congestion. Increasing mild left basilar opacities. The upper lungs appear clear. Low lung volumes. Small left pleural effusion. No significant right pleural effusion. No pneumothorax. No acute osseous abnormality. Impression: Slightly increasing mild left basilar atelectasis and/or pneumonitis with associated trace left pleural effusion. Persistent mild cardiomegaly. Additional postsurgical and chronic findings as above. Dictated by: Dictated on workstation # [id number]
[2018-05-31] MEDS ORDERED: PIPERACILLIN SODIUM/TAZOBACTAM 4.5 GM in NS (IVPB) 100 ML IV ONE (12:45)
--- NOTE | 2018-05-31 13:00 | Diagnostic Imaging Report ---
PROCEDURE: CT chest, abdomen, and pelvis without contrast. TECHNIQUE: Multiple contiguous axial images were obtained through the chest, abdomen, and pelvis without the use of intravenous contrast. INDICATION: Shortness of breath, disoriented The recent CT abdomen/pelvis exam of 05/13/2018 noted a cecal volvulus. In the interval since the prior exam the patient has undergone a surgical procedure. There are now surgical clips about the midportion of the transverse colon. There is no evidence for a recurrent volvulus. The prior study also noted diverticulosis of the sigmoid and descending colon. There is no evidences for diverticulitis however. On this study there is still no clearance for distortion of the pericolonic fat to suggest acute diverticulitis. In the interval since the previous study, mild distortion of the mesenteric fat has developed throughout the abdomen and pelvis. This is probably a sequelae of the patient's recent surgical procedure. There is also a small amount of fluid in the paracolic gutter on the right. There is also 2 x 3 x 3.7 cm oval collection of fluid in the right adnexa. This could represent a cyst arising from the right ovary if the right ovary still present. The uterus is surgically absent. The urinary bladder is grossly unremarkable. In the interval since the prior study a small amount of increased density has developed within the gallbladder. This could be related to sludge. The liver, spleen, pancreas, adrenals, kidneys, aorta and inferior vena cava show no sign of an acute abnormality. The stomach is not well-distended and consequently difficult to assess. Also, in the interval since the prior study, bibasilar pneumonia/atelectasis and bilateral pleural effusions have developed. The fluid on the right measures approximately 5.1 cm maximum depth while left side effusion is estimated to be 4.2 cm. The upper lungs are generally clear. The heart is enlarged but stable when compared to the prior exam. Extensive coronary artery calcifications are noted. Aorta is not abnormally dilated. There are are a few droplets of gas in the right supraclavicular region. These are of uncertain etiology but may be related to a recent surgical procedure. The bone windows show no sign of a fracture or destructive lesion. IMPRESSION: 1. In the interval since the previous exam the patient has undergone a surgical procedure for correction of the cecal volvulus. There is no sign of recurrent volvulus. 2. There is mild distortion of mesenteric fat and there is some fluid in the paracolic gutter on the right and in the right adnexa. These findings may be a sequela of the patient's recent surgical procedure. There is no drainable abscess identified. 3. The increased density within the gallbladder could be related to sludge. If further study is desired, ultrasound would be recommended. 4. In the interval since the previous exam, bibasilar pneumonia/atelectasis and bilateral pleural effusions have developed. There is no acute cardiopulmonary abnormality noted otherwise. 5. These results were discussed with Phu May APRN. Dictated by: Dictated on workstation # [id number]
[2018-05-31] MEDS ORDERED: FUROSEMIDE 40 MG/4 ML INJ (LASIX) IVP ONE (13:15)
[2018-05-31 13:42] LABS: AMMONIA 31 UMOL/L (11-32)
[2018-05-31 13:43] LABS: ACETAMINOPHEN < 10 UG/ML (10-30)
--- NOTE | 2018-05-31 13:52 | Diagnostic Imaging Report ---
PROCEDURE: US Gallbladder. TECHNIQUE: Multiple real-time grayscale images were obtained over the right upper quadrant in various projections. INDICATION: Abdominal pain. FINDINGS: The previous gallbladder ultrasound exam of 04/26/2012 failed to show any sign of cholelithiasis or acute cholecystitis. The CT chest, abdomen, and pelvis exam performed earlier today did note a few small gallstones. On this exam, there is no clear evidence for cholelithiasis. However, the gallbladder wall does seem thickened. This may be secondary to incomplete distention as opposed to acute cholecystitis as there is no pericholecystic fluid present. The common bile duct is not dilated. The liver and right kidney are unremarkable. The pancreas is not well visualized. IMPRESSION: 1. The small calculi seen on the CT exam are not well visualized on this study. 2. The gallbladder wall is thickened, but this may be related to incomplete distention. 3. If further evaluation of the gallbladder for an acute abnormality is desired, then nuclear medicine hepatobiliary scan will be recommended. Dictated by: Dictated on workstation # [id number]
[2018-05-31] MEDS: fentaNYL INJECTION 100 MCG/2 ML AMP IVP PRN (14:16)
[2018-05-31 14:35] VITALS: BP 127/58
--- OUTSIDE RECORDS SUMMARY | 2018-05-31 14:39 | XMS REPORT | Continuity of Care Document ---
Author Author [facility] Address Unknown Phone Unavailable Allergies Active Description Code Type Severity Reaction Onset Reported/Identified Relationship to Patient Clinical Status Yes olanzapine [id number] Drug Allergy Unknown N/A 08/03/2008 Yes codeine Drug Allergy 02/16/2011 Yes codeine Drug Allergy N/A N/A 02/16/2011 Yes Cefadroxil Drug Allergy N/A N/A 08/20/2013 Yes cefadroxil [id number] Drug Allergy Unknown N/A 05/13/2018 Yes codeine [id number] Drug Allergy Unknown N/A 05/13/2018 Yes cefadroxil [id number] Drug Allergy Mild MAKES HER DIZZY 05/15/2018 [...] PF PSYCHIC FACTORS MED COND 05/05/2008 JENNIFER ADMISSIONS MANAGER, CODY 296.30 MAJOR DEPRESSIVE AFFECTIVE DISORDER RECURRENT EPISODE UNSPECIFIED DEGREE 05/05/2008 JENNIFER ADMISSIONS MANAGER, CODY 300.21 AN PANIC DIS W AGORA 05/05/2008 JENNIFER ADMISSIONS MANAGER, CODY 307.47 SI DYSSOMNIA NOS 05/05/2008 JENNIFER ADMISSIONS MANAGER, CODY 316 PF PSYCHIC FACTORS MED COND 05/05/2008 JENNIFER ADMISSIONS MANAGER, CODY 296.30 MAJOR DEPRESSIVE AFFECTIVE DISORDER RECURRENT EPISODE UNSPECIFIED DEGREE 05/05/2008 JENNIFER ADMISSIONS MANAGER, CODY 300.21 AN PANIC DIS W AGORA 05/05/2008 JENNIFER ADMISSIONS MANAGER, CODY 307.47 SI DYSSOMNIA NOS 05/05/2008 JENNIFER [...] MD 300.00 AN ANXIETY UNSPEC 05/26/2008 JENNIFER ADMISSIONS MANAGER, CODY 296.32 MAJOR DEPRESSIVE AFFECTIVE DISORDER RECURRENT EPISODE MODERATE DEGREE 05/26/2008 JENNIFER ADMISSIONS MANAGER, CODY 300.00 AN ANXIETY UNSPEC 05/26/2008 JENNIFER ADMISSIONS MANAGER, CODY 296.32 MAJOR DEPRESSIVE AFFECTIVE DISORDER RECURRENT EPISODE MODERATE DEGREE 05/26/2008 JENNIFER ADMISSIONS MANAGER, CODY 300.00 AN ANXIETY UNSPEC 01/28/2009 294.9 [...] DUE TO CONDITIONS CLASSIFIED ELSEWHERE 01/28/2009 ALCIDES SEUPLVEDA PHD 294.9 UNSPECIFIED PERSISTENT MENTAL DISORDERS DUE [...] DUE TO CONDITIONS CLASSIFIED ELSEWHERE 01/28/2009 JENNIFER ADMISSIONS MANAGER, CODY 294.9 UNSPECIFIED PERSISTENT MENTAL DISORDERS DUE TO CONDITIONS CLASSIFIED ELSEWHERE 01/28/2009 JENNIFER TIM CODY 294.9 UNSPECIFIED PERSISTENT MENTAL DISORDERS DUE TO CONDITIONS CLASSIFIED ELSEWHERE 04/20/2011 Ot 272.4 HYPERLIPIDEMIA NEC/NOS 04/20/2011 Ot 401.9 HYPERTENSION NOS 04/20/2011 Ot 414.01 CORONARY ATHEROSCLEROSIS OF [place] CORON 04/20/2011 Ot 414.02 CORON ATHEROSCLEROSIS AUTOLOG [...] NOS 09/10/2012 Ot 414.01 CORONARY ATHEROSCLEROSIS OF [place] CORON 09/10/2012 Ot 414.02 CORON ATHEROSCLEROSIS AUTOLOG [...] AN PANIC DIS W/O AGORA 09/19/2012 JENNIFER ADMISSIONS MANAGER, CODY 300.01 AN PANIC DIS W/O AGORA 09/19/2012 JENNIFER ADMISSIONS MANAGER, CODY 300.01 AN PANIC DIS W/O AGORA [...] MD Ot I25.10 ATHSCL HEART DISEASE OF [place] CORONARY 09/21/2015 SUZETTE COCHRAN MD, Ot I25.82 [...] 09/21/2015 SUZETTE COCHRAN MD, Ot Z79.899 OTHER SKILLED NURSING (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 09/21/2015 SUZETTE COCHRAN MD, [...] SUZETTE Hardy Ot I65.02 10/03/2015 DIMAS SHERMAN, SUZTETE Hardy Ot I65.23 10/03/2015 SUZETTE COCHRAN MD [...] ROSITA CRUZP Ot V49.81 10/11/2015 ROSITA CRUZ SHARED SERVICES AND OUTSOURCING MANAGER Ot V76.12 10/11/2015 ESA BETTS Ot 401.9 [...] NEC/NOS 11/18/2015 Ot 414.01 CORONARY ATHEROSCLEROSIS OF [place] CORON 11/18/2015 Ot 440.20 ATHEROSCLEROSIS [place] ARTERIES EXTREMIT 11/18/2015 Ot 998.12 HEMATOMA COMPLIC [...] RT BUNDLE BRANCH BLOCK 11/18/2015 ROSITA CRUZ SHARED SERVICES AND OUTSOURCING MANAGER Ot V49.81 ASYMPT POSTMENOPAUSAL STATUS (AGE-RELATE 11/18/2015 ROSITA CRUZ SHARED SERVICES AND OUTSOURCING MANAGER Ot V76.12 OTH SCREEN MAMMO-MALIGN NEOPLASM [...] MD, Ot I25.10 ATHSCL HEART DISEASE OF [place] CORONARY 11/25/2015 SUZETTE COCHRAN MD, Ot I25.82 [...] 11/25/2015 SUZETTE COCHRAN MD Ot Z79.899 OTHER SKILLED NURSING (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 11/25/2015 SUZETTE COCHRAN MD Ot Z95.1 PRESENCE OF AORTOCORONARY BYPASS GRAFT 07/23/2016 Ot 272.4 HYPERLIPIDEMIA NEC/NOS 07/23/2016 Ot 414.01 CORONARY ATHEROSCLEROSIS OF [place] CORON 07/23/2016 Ot 440.20 ATHEROSCLEROSIS [place] ARTERIES EXTREMIT 07/23/2016 Ot 998.12 HEMATOMA COMPLIC [...] RT BUNDLE BRANCH BLOCK 09/03/2016 ROSITA CRUZ SHARED SERVICES AND OUTSOURCING MANAGER Ot V49.81 ASYMPT POSTMENOPAUSAL STATUS (AGE-RELATE 09/03/2016 ROSITA CRUZ SHARED SERVICES AND OUTSOURCING MANAGER Ot V76.12 OTH SCREEN MAMMO-MALIGN NEOPLASM [...] MD Ot I25.10 ATHSCL HEART DISEASE OF [place] CORONARY 01/18/2017 SUZETTE COCHRAN MD Ot 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 01/18/2017 SUZETTE COCHRAN MD Ot M79.7 FIBROMYALGIA 02/08/2017 SUZETTE COCHRAN MD Ot E78.2 MIXED HYPERLIPIDEMIA 02/08/2017 SUZETTE COCHRAN MD Ot I10 ESSENTIAL (PRIMARY) HYPERTENSION 02/08/2017 SUZETTE COCHRAN MD Ot I25.10 ATHSCL HEART DISEASE OF [place] CORONARY 02/08/2017 SUZETTE COCHRAN MD Ot 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 02/08/2017 SUZETTE COCHRAN MD Ot M79.7 FIBROMYALGIA 03/04/2017 SUZETTE COCHRAN MD Ot E78.2 MIXED HYPERLIPIDEMIA 03/04/2017 SUZETTE COCHRAN MD Ot I10 ESSENTIAL (PRIMARY) HYPERTENSION 03/04/2017 SUZETTE COCHRAN MD Ot I25.10 ATHSCL HEART DISEASE OF [place] CORONARY 03/04/2017 SUZETTE COCHRAN MD Ot I65.23 [...] MD Ot I25.10 ATHSCL HEART DISEASE OF [place] CORONARY 01/09/2018 SUZETTE COCHRAN MD Ot 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 01/09/2018 SUZETTE COCHRAN MD Ot M79.7 FIBROMYALGIA 01/15/2018 SUZETTE COCHRAN MD Ot E78.5 HYPERLIPIDEMIA, UNSPECIFIED 01/15/2018 SUZETTE COCHRAN MD 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 01/15/2018 SUZETTE COCHRAN MD Ot I11.0 HYPERTENSIVE HEART DISEASE WITH HEART FA 01/15/2018 SUZETTE COCHRAN MD Ot I25.10 ATHSCL HEART DISEASE OF [place] CORONARY 01/15/2018 SUZETTE COCHRAN MD Ot I50.9 HEART FAILURE, UNSPECIFIED 02/04/2018 SUZETTE COCHRAN MD Ot E78.5 HYPERLIPIDEMIA, UNSPECIFIED 02/04/2018 SUZETTE COCHRAN MD 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 02/04/2018 SUZETTE COCHRAN MD Ot I11.0 HYPERTENSIVE HEART DISEASE WITH HEART FA 02/04/2018 SUZETTE COCHRAN MD Ot I25.10 ATHSCL HEART DISEASE OF [place] CORONARY 02/04/2018 SUZETTE COCHRAN MD Ot I50.9 HEART FAILURE, UNSPECIFIED 02/17/2018 SUZETTE COCHRAN MD Ot E78.5 HYPERLIPIDEMIA, UNSPECIFIED 02/17/2018 SUZETTE COCHRAN MD 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0 HYPERTENSIVE HEART DISEASE WITH HEART FA 05/13/2018 SUZETTE COCHRAN MD, Ot I25.10 ATHSCL HEART DISEASE OF [place] CORONARY 05/13/2018 SUZETTE COCHRAN MD Ot I50.9 [...] MD, Ot I25.10 ATHSCL HEART DISEASE OF [place] CORONARY 05/13/2018 SUZETTE COCHRAN MD Ot 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 05/13/2018 SUZETTE COCHRAN MD Ot M79.7 FIBROMYALGIA 05/13/2018 SUZETTE COCHRAN MD, Ot E78.5 HYPERLIPIDEMIA, UNSPECIFIED 05/13/2018 SUZETTE COCHRAN MD 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 05/13/2018 SUZETTE COCHRAN MD, Ot I11.0 HYPERTENSIVE HEART DISEASE WITH HEART FA 05/13/2018 SUZETTE COCHRAN MD, Ot I25.10 ATHSCL HEART DISEASE OF [place] CORONARY 05/13/2018 SUZETTE COCHRAN MD Ot I50.9 [...] ANGELITO WAN DO Ot K56.2 VOLVULUS 05/18/2018 ANEGLITO WAN DO Ot K56.699 OTHER INTESTNL OBST [...] Ot Z95.5 PRESENCE OF CORONARY ANGIOPLASTY IMPLANT 05/27/2018 ALBA SHERMAN, MARICHUY Hardy Ot E03.9 HYPOTHYROIDISM, UNSPECIFIED 05/27/2018 MARICHUY WILLIS MD Ot E78.00 PURE HYPERCHOLESTEROLEMIA, UNSPECIFIED 05/27/2018 MARICHUY WILLIS MD Ot F32.9 MAJOR DEPRESSIVE DISORDER, SINGLE EPISOD 05/27/2018 MARICHUY WILLIS MD Ot F41.9 ANXIETY DISORDER, UNSPECIFIED 05/27/2018 MARICHUY WILLIS MD Ot I11.0 HYPERTENSIVE HEART DISEASE WITH HEART FA 05/27/2018 MARICHUY WILLIS MD Ot I25.10 ATHSCL HEART DISEASE OF [place] CORONARY 05/27/2018 MARICHUY WILLIS MD Ot I50.9 HEART FAILURE, UNSPECIFIED 05/27/2018 MARICHUY WILLIS MD Ot R60.9 EDEMA, UNSPECIFIED 05/27/2018 MARICHUY WILLIS MD Ot Z87.19 PERSONAL HISTORY OF OTHER DISEASES OF TH 05/27/2018 MARICHUY WILLIS MD Ot Z87.440 PERSONAL HISTORY OF URINARY (TRACT) INFE 05/27/2018 MARICHUY WILLIS MD Ot Z88.1 ALLERGY STATUS TO OTHER ANTIBIOTIC AGENT 05/27/2018 MARICHUY WILLIS MD Ot Z88.5 ALLERGY STATUS TO NARCOTIC AGENT STATUS 05/27/2018 MARICHUY WILLIS MD Ot Z88.8 ALLERGY STATUS TO OTH DRUG/MEDS/BIOL SUB 05/27/2018 MARICHUY WILLIS MD Ot Z90.710 ACQUIRED ABSENCE OF BOTH CERVIX AND UTER 05/27/2018 MARICHUY WILLIS MD Ot Z95.1 PRESENCE OF AORTOCORONARY BYPASS GRAFT 05/27/2018 MARICHUY WILLIS MD Ot Z98.890 OTHER SPECIFIED POSTPROCEDURAL STATES 05/30/2018 MARICHUY WILLIS MD Ot E03.9 HYPOTHYROIDISM, UNSPECIFIED 05/30/2018 MARICHUY WILLIS MD Ot E78.00 PURE HYPERCHOLESTEROLEMIA, UNSPECIFIED 05/30/2018 MARICHUY WILLIS MD Ot F32.9 MAJOR DEPRESSIVE DISORDER, SINGLE EPISOD 05/30/2018 MARICHUY WILLIS MD Ot F41.9 ANXIETY DISORDER, UNSPECIFIED 05/30/2018 MARICHUY WILLIS MD Ot I11.0 HYPERTENSIVE HEART DISEASE WITH HEART FA 05/30/2018 MARICHUY WILLIS MD Ot I25.10 ATHSCL HEART DISEASE OF [place] CORONARY 05/30/2018 MARICHUY WILLIS MD Ot I50.9 HEART FAILURE, UNSPECIFIED 05/30/2018 MARICHUY WILLIS MD Ot R60.9 EDEMA, UNSPECIFIED 05/30/2018 MARICHUY WILLIS MD Ot Z87.19 PERSONAL HISTORY OF OTHER DISEASES OF TH 05/30/2018 MARICHUY WILLIS MD Ot Z87.440 PERSONAL HISTORY OF URINARY (TRACT) INFE 05/30/2018 MARICHUY WILLIS MD Ot Z88.1 ALLERGY STATUS TO OTHER ANTIBIOTIC AGENT 05/30/2018 MARICHUY WILLIS MD Ot Z88.5 ALLERGY STATUS TO NARCOTIC AGENT STATUS 05/30/2018 MARICHUY WILLIS MD Ot Z88.8 ALLERGY STATUS TO OTH DRUG/MEDS/BIOL SUB 05/30/2018 MARICHUY WILLIS MD Ot Z90.710 ACQUIRED ABSENCE OF BOTH CERVIX AND UTER 05/30/2018 ALBA SHERMAN, MARICHUY Hardy Ot Z95.1 PRESENCE OF AORTOCORONARY BYPASS GRAFT 05/30/2018 MARICHUY WILLIS MD Ot Z98.890 OTHER SPECIFIED POSTPROCEDURAL STATES 05/31/2018 ROSITA CRUZ SHARED SERVICES AND OUTSOURCING MANAGER Ot V49.81 ASYMPT POSTMENOPAUSAL STATUS (AGE-RELATE 05/31/2018 ROSITA CRUZ SHARED SERVICES AND OUTSOURCING MANAGER Ot V76.12 OTH SCREEN MAMMO-MALIGN NEOPLASM OF [place] 05/31/2018 ESA BETTS Ot 401.9 HYPERTENSION NOS 05/31/2018 ESA BETTS Ot 414.00 CORON ATHEROSCLER NOS TYPE VESSEL, NATIV 05/31/2018 ESA BETTS Ot 426.4 RT BUNDLE BRANCH BLOCK 05/31/2018 ESA BETTS Ot 428.0 CONGESTIVE HEART FAILURE NOS 05/31/2018 ESA BETTS Ot 272.4 HYPERLIPIDEMIA NEC/NOS 05/31/2018 ESA BETTS Ot 414.9 CHR ISCHEMIC HRT DIS NOS 05/31/2018 ESA BETTS Ot 428.0 CONGESTIVE HEART FAILURE NOS 05/31/2018 ESA BETTS Ot 433.10 CAROTID ARTERY OCCLUSION W O CEREBRAL IN 05/31/2018 Ot N18.3 CHRONIC KIDNEY DISEASE, STAGE 3 (MODERAT 05/31/2018 SUZETTE COCHRAN MD, Ot E78.2 MIXED HYPERLIPIDEMIA 05/31/2018 SUZETTE COCHRAN MD Ot I10 ESSENTIAL (PRIMARY) HYPERTENSION 05/31/2018 SUZETTE COCHRAN MD Ot I25.10 ATHSCL HEART DISEASE OF [place] CORONARY 05/31/2018 SUZETTE COCHRNA MD Ot 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 05/31/2018 SUZETTE COCHRAN MD Ot M79.7 FIBROMYALGIA 05/31/2018 SUZETTE COCHRAN MD, Ot E78.5 HYPERLIPIDEMIA, UNSPECIFIED 05/31/2018 SUZETTE COCHRAN MD 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 05/31/2018 SUZETTE COCHRAN MD Ot I11.0 HYPERTENSIVE HEART DISEASE WITH HEART FA 05/31/2018 SUZETTE COCHRAN MD, Ot I25.10 ATHSCL HEART DISEASE OF [place] CORONARY 05/31/2018 SUZETTE COCHRAN MD Ot I50.9 HEART FAILURE, UNSPECIFIED Procedures Code Description Performed By Performed On 45.16 ESOPHAGOGASTRODUODENOSCOPY [ EGD] W/CLOSE 05/23/2012 40906 PSYCH DIAGNOSTIC EVALUATION 09/25/2012 47717 PSYTX PT&/FAMILY 45 MINUTES 11/20/2012 18648 PSYTX PT&/FAMILY 45 MINUTES 01/06/2013 19619 PSYTX PT&/FAMILY 45 MINUTES 03/05/2013 65449 SLEEP STUDY 04/10/2013 81496 PSYTX PT&/FAMILY 45 MINUTES 04/13/2013 54813 PSYTX PT&/FAMILY 45 MINUTES 05/01/2013 38381 PSYTX PT&/FAMILY 45 MINUTES 08/21/2013 03170 PSYTX PT&/FAMILY 45 MINUTES 09/08/2013 15480 PSYTX PT&/FAMILY 45 MINUTES 09/23/2013 12562 PSYTX PT&/FAMILY 45 MINUTES 11/10/2013 [id number] RESECTION OF RIGHT LARGE INTESTINE, OPEN 05/13/2018 [id number] REPAIR ABDOMINAL WALL, OPEN APPROACH 05/13/2018 Results [...] culture - 05/13/18 12:48 Bacterial urine culture [id number] NRG COLONY COUNT >100,000/ML NRG FTX;REPORTABLE ID/SENSITIVITY REPORTED 05/15/18 12:05 NRG RML Sensitivity Panel - 05/13/18 12:48 Gentamicin susceptibility [...] g/dL 3.2-4.5 CALCIUM CORRECTED 10.0 mg/dL 8.5-10.1 Capillary blood glucose measurement by glucometer (mass/volume) - 05/31/18 11: 02 Capillary blood glucose measurement by glucometer (mass/volume) 185 mg/dL 70-110 Complete blood count (CBC) with automated white blood cell (WBC) differential - 05/31/18 11:09 Blood leukocytes automated count (number/volume) 13.8 10*3/uL 4.3-11.0 Blood erythrocytes automated count (number/volume) 3.40 10*6/uL 4.35-5.85 Venous blood hemoglobin measurement (mass/volume) 11.3 g/dL 11.5-16.0 Blood hematocrit (volume fraction) 34 % 35-52 Automated erythrocyte mean corpuscular volume 101 [foz_us] 80-99 Automated erythrocyte mean corpuscular hemoglobin (mass per erythrocyte) 33 pg 25-34 Automated erythrocyte mean corpuscular hemoglobin concentration measurement ( mass/volume) 33 g/dL 32-36 Automated erythrocyte distribution width ratio 13.7 % 10.0-14.5 Automated blood platelet count (count/volume) 413 10*3/uL 130-400 Automated blood platelet mean volume measurement 10.2 [foz_us] 7.4-10.4 Automated blood neutrophils/100 leukocytes 73 % 42-75 Automated blood lymphocytes/100 leukocytes 18 % 12-44 Blood monocytes/100 leukocytes 8 % 0-12 Automated blood eosinophils/100 leukocytes 1 % 0-10 Automated blood basophils/100 leukocytes 0 % 0-10 Blood neutrophils automated count (number/volume) 10.1 10*3 1.8-7.8 Blood lymphocytes automated count (number/volume) 2.4 10*3 1.0-4.0 Blood monocytes automated count (number/volume) 1.1 10*3 0.0-1.0 Automated eosinophil count 0.2 10*3/uL 0.0-0.3 Automated blood basophil count (count/volume) 0.1 10*3/uL 0.0-0.1 Comprehensive metabolic panel - 05/31/18 11:09 Serum or plasma sodium measurement (moles/volume) 139 mmol/L 135-145 Serum or plasma potassium measurement (moles/volume) 3.9 mmol/L 3.6-5.0 Serum or plasma chloride measurement (moles/volume) 103 mmol/L 98-107 Carbon dioxide 21 mmol/L 21-32 Serum or plasma anion gap determination (moles/volume) 15 mmol/L 5-14 Serum or plasma urea nitrogen measurement (mass/volume) 21 mg/dL 7-18 Serum or plasma creatinine measurement (mass/volume) 1.70 mg/dL 0.60-1.30 Serum or plasma urea nitrogen/creatinine mass ratio 12 NRG Serum or plasma creatinine measurement with calculation of estimated glomerular filtration rate 29 NRG Serum or plasma glucose measurement (mass/volume) 127 mg/dL 70-105 Serum or plasma calcium measurement (mass/volume) 9.0 mg/dL 8.5-10.1 Serum or plasma total bilirubin measurement (mass/volume) 0.6 mg/dL 0.1-1.0 Serum or plasma alkaline phosphatase measurement (enzymatic activity/volume) 201 U/L 40-136 Serum or plasma aspartate aminotransferase measurement (enzymatic activity/ volume) 833 U/L 5-34 Serum or plasma alanine aminotransferase measurement (enzymatic activity/volume ) 435 U/L 0-55 Serum or plasma protein measurement (mass/volume) 5.9 g/dL 6.4-8.2 Serum or plasma albumin measurement (mass/volume) 3.2 g/dL 3.2-4.5 CALCIUM CORRECTED 9.6 mg/dL 8.5-10.1 Lipase - 05/31/18 11:09 Lipase 75 U/L 8-78 Complete urinalysis with reflex to culture - 05/31/18 11:19 Urine color determination YELLOW NRG Urine clarity determination CLEAR NRG Urine pH measurement by test strip 6 5-9 Specific gravity of urine by test strip 1.015 1.016- 1.022 Urine protein assay by test strip, semi-quantitative 2+ NEGATIVE Urine glucose detection by automated test strip NEGATIVE NEGATIVE Erythrocytes detection in urine sediment by light microscopy NEGATIVE NEGATIVE Urine ketones detection by automated test strip 1+ NEGATIVE Urine nitrite detection by test strip NEGATIVE NEGATIVE Urine total bilirubin detection by test strip NEGATIVE NEGATIVE Urine urobilinogen measurement by automated test strip (mass/volume) 1 mg/dL NORMAL Urine leukocyte esterase detection by dipstick 1+ NEGATIVE Automated urine sediment erythrocyte count by microscopy (number/high power field) NONE NRG Automated urine sediment leukocyte count by microscopy (number/high power field ) [HPF] NRG Bacteria detection in urine sediment by light microscopy NEGATIVE NRG Squamous epithelial cells detection in urine sediment by light microscopy NONE NRG Crystals detection in urine sediment by light microscopy NONE NRG Casts detection in urine sediment by light microscopy NONE NRG Mucus detection in urine sediment by light microscopy NEGATIVE NRG Complete urinalysis with reflex to culture NO NRG PT panel in platelet poor plasma by coagulation assay - 05/31/18 11:44 Prothrombin time (PT) in platelet poor plasma by coagulation assay 18.6 s 12.2-14.7 INR in platelet poor plasma or blood by coagulation assay 1.5 0.8-1.4 Blood lactic acid measurement (moles/volume) - 05/31/18 11:44 Blood lactic acid measurement (moles/volume) 2.37 mmol/L 0.50-2.00 Serum or plasma lithium measurement (moles/volume) - 05/31/18 11:44 BNP level 4576.7 pg/mL <100.0 Serum or plasma lactate measurement (moles/volume) - 05/31/18 13:13 Serum or plasma lactate measurement (moles/volume) 2.56 mmol/L 0.50-2.00 Ammonia - 05/31/18 13:13 Ammonia 31 umol/L 32 Serum or plasma acetaminophen measurement (mass/volume) - 05/31/18 13:13 Serum or plasma acetaminophen measurement (mass/volume) < ug/mL 05-20 Encounters ACCT No. Visit Date/Time Discharge Status Pt. Type Provider Facility Loc./Unit Complaint [id number] 02/25/2014 15:48:00 02/25/2014 23:59:59 [facility] Outpatient CODY RODRIGUEZ APRN [id number] 02/25/2014 15:48:00 02/25/2014 23:59:59 [facility] Outpatient CODY RODRIGUEZ APRN [id number] 11/26/2013 09:48:00 11/26/2013 23:59:59 [facility] Outpatient DAVID ALAN MD [id number] 11/10/2013 17:55:00 11/10/2013 23:59:59 [facility] Outpatient ALCIDES SEPULVEDA PHD [id number] 09/22/2013 16:49:00 09/22/2013 23:59:59 [facility] Outpatient ALCIDES SEPULVEDA PHD [id number] 09/08/2013 15:53:00 09/08/2013 23:59:59 [facility] Outpatient ALCIDES SEPULVEDA PHD [id number] 08/21/2013 15:57:00 08/21/2013 23:59:59 [facility] Outpatient ALCIDES SEPULVEDA PHD [id number] 08/20/2013 09:49:00 08/20/2013 23:59:59 [facility] Outpatient DAVID ALAN MD [id number] 04/28/2013 15:54:00 04/28/2013 23:59:59 [facility] Outpatient ALCIDES SEPULVEDA PHD [id number] 04/10/2013 14:55:00 04/10/2013 23:59:59 [facility] Outpatient ALCIDES SEPULVEDA PHD [id number] 09/19/2012 11:27:00 09/19/2012 23:59:59 [facility] Outpatient SOLEDAD MAYER DO [id number] 08/04/2012 14:29:00 08/04/2012 23:59:59 [place] [id number] 08/31/2011 14:27:00 08/31/2011 23:59:59 [facility] Outpatient [id number] 08/31/2011 14:27:00 08/31/2011 23:59:59 [facility] Outpatient [id number] 03/04/2013 14:49:00 Document Registration [id number] 01/06/2013 09:59:00 Document Registration [id number] 11/19/2012 12:48:00 Document Registration [id number] 02/17/2015 10:02:59 ACT Document Registration [id number] 05/27/2018 08:50:00 05/27/2018 10:49:00 DIS Emergency MARICHUY WILLIS MD [facility] ER ANXIETY;SOB [id number] 05/13/2018 15:20:00 05/18/2018 13:25:00 DIS Inpatient ANGELITO WAN DO [facility] 4TH CECAL VOLVULUS,UTI [id number] 01/13/2018 11:19:00 01/13/2018 23:59:59 CLS Outpatient SUZETTE COCHRAN MD [facility] CARD I25.10 CAD [id number] 01/17/2017 12:51:00 01/17/2017 23:59:59 [facility] Outpatient SUZETTE COCHRAN MD [facility] CARD CAD I25.10 [id number] 09/05/2016 11:05:00 09/05/2016 23:59:59 [facility] Outpatient ETHEL MG DO [facility] LAB N18.3 [id number] 09/21/2015 11:55:00 09/21/2015 18:55:00 DIS Outpatient SUZETTE COCHRAN MD [facility] CATH UNSTABLE ANGINA, CAD, HTN,HLP [id number] 02/17/2015 10:02:00 02/17/2015 23:59:59 CLS Outpatient ESA BETTS [facility] CARD CAD,CHF,MODESTA, HLP [id number] 06/15/2014 11:44:00 06/15/2014 23:59:59 CLS Outpatient ESA BETTS [facility] CARD CAD,CHF,HTN [id number] 05/08/2014 12:07:00 05/09/2014 13:15:00 DIS Inpatient DIMAS SHERMAN, SUZETTE Hardy [facility] CSD HYPOTENSION ATYPICAL CHEST PAIN [id number] 10/22/2013 09:21:00 10/22/2013 23:59:59 CLS Outpatient ROSITA CRUZ [facility] RAD SCREENING,POST MENAPAUSAL STATUS [id number] 06/09/2013 19:51:00 06/10/2013 06:25:00 DIS Outpatient RAY GAMBOA MD [facility] SLEEP KRISTAL [id number] 04/29/2013 20:58:00 04/30/2013 07:10:00 DIS Outpatient SOLEDAD MAYER DO [facility] SLEEP KRISTAL,INSOMNIA [id number] 04/01/2013 21:23:00 04/01/2013 23:28:00 DIS Emergency TRUDY LANGFORD [facility] ER FALL/RIGHT RING FINGER INJURY [id number] 03/19/2013 19:06:00 03/19/2013 23:59:59 [facility] Outpatient [id number] 01/31/2013 11:45:00 01/31/2013 23:59:59 CLS Outpatient [id number] 05/31/2018 12:55:00 ACT Inpatient KEVIN ALCARAZ MD [facility] 4TH LLL PNEUMONIA,ELEVATED LFT,FLUID OVERLOAD [id number] 12/03/2016 00:00:00 Document Registration [id number] 09/19/2015 12:20:00 Document Registration [id number] 09/19/2015 12:20:00 Document Registration [id number] 09/10/2012 08:52:00 Document Registration [id number] 09/02/2012 10:25:00 Document Registration [id number] 05/21/2012 11:55:00 Document Registration [id number] 05/20/2012 08:59:00 Document Registration [id number] 04/25/2012 21:02:00 Document Registration [id number] 07/31/2011 13:00:00 Document Registration [id number] 07/31/2011 12:57:00 Document Registration [id number] 06/01/2011 09:17:00 Document Registration [id number] 04/26/2011 15:23:00 Document Registration [id number] 04/20/2011 06:50:00 Document Registration [id number] 03/06/2011 07:04:00 Document Registration [id number] 06/22/2010 09:22:00 Document Registration [id number] 05/09/2010 09:42:00 Document Registration [id number] 04/24/2010 06:30:00 Document Registration [id number] 03/30/2010 06:39:00 Document Registration [id number] 02/14/2018 08:00:00 02/14/2018 23:59:59 [facility] JOSEP BALL [facility]
[2018-05-31] MEDS ORDERED: VANCOMYCIN 1,750 MG/NS 500 ML IVPB IV NR ×2 (14:56)
[2018-05-31] MEDS ORDERED: fentaNYL INJECTION 100 MCG/2 ML AMP IVP PRN (15:00)
[2018-05-31] MEDS ORDERED: ONDANSETRON 4 MG/2 ML (SDV) Z0FRAN IVP PRN (15:00)
[2018-05-31 15:40] VITALS: BP 125/60
[2018-05-31] MEDS ORDERED: CHLORASEPTIC SPRAY 177 ML LIQUID MC PRN (15:45)
[2018-05-31 16:18] VITALS: BP 129/83
[2018-05-31] MEDS: PIPERACILLIN/TAZO 4.5 GM/NS 100 ML IV SCH ×2 (18:23)
[2018-05-31] MEDS: RT-ALBUTEROL/IPRATROPIUM 3 ML (DUONEB) VIAL INH SCH ×2 (18:35→22:38)
[2018-05-31 19:15] VITALS: BP 130/62
[2018-05-31] MEDS ORDERED: RT-ALBUTEROL/IPRATROPIUM 3 ML (DUONEB) VIAL INH PRN (20:00)
[2018-06-01 00:24] VITALS: BP 113/58
[2018-06-01] MEDS: RT-ALBUTEROL/IPRATROPIUM 3 ML (DUONEB) VIAL INH SCH ×7 (02:36→22:45)
[2018-06-01] MEDS: PIPERACILLIN/TAZO 4.5 GM/NS 100 ML IV SCH ×6 (03:25→17:43)
[2018-06-01 04:19] VITALS: BP 116/56
[2018-06-01 04:37] LABS: BASOPHILS % (AUTO) 0 % (0-10); EOSINOPHILS # (AUTO) 0.3 10^3/uL (0.0-0.3); EOSINOPHILS % (AUTO) 3 % (0-10); HEMATOCRIT 34 % (35-52); LYMPHOCYTES # (AUTO) 1.5 X 10^3 (1.0-4.0); LYMPHOCYTES % (AUTO) 15 % (12-44); MEAN CORPUSCULAR HEMOGLOBIN 33 PG (25-34); MEAN CORPUSCULAR HGB CONC 33 G/DL (32-36); MEAN CORPUSCULAR VOLUME 101 FL (80-99); MEAN PLATELET VOLUME 10.4 FL (7.4-10.4); MONOCYTES # (AUTO) 0.9 X 10^3 (0.0-1.0); MONOCYTES % (AUTO) 9 % (0-12); NEUTROPHILS # (AUTO) 7.3 X 10^3 (1.8-7.8); NEUTROPHILS % (AUTO) 73 % (42-75); PLATELET COUNT 376 10^3/uL (130-400); RED BLOOD COUNT 3.36 10^6/uL (4.35-5.85); RED CELL DISTRIBUTION WIDTH 13.6 % (10.0-14.5)
[2018-06-01 05:00] LABS: BILIRUBIN,TOTAL 0.8 MG/DL (0.1-1.0); CALCIUM 8.6 MG/DL (8.5-10.1); CREATININE SERUM 1.47 MG/DL (0.60-1.30); POTASSIUM 3.4 MMOL/L (3.6-5.0); TOTAL PROTEIN 5.6 GM/DL (6.4-8.2)
--- NOTE | 2018-06-01 06:24 | History & Physical-Hospitalist ---
History of Present Illness HPI/Chief Complaint Pt is a 72yoCF known to me from recent admission for cecal volvulus who presented to the ER due to confusion and weakness. She states since he was discharged over a week ago she has had to return to the ER for evaluation due to pain and weakness. She was started on pain medications and continued to worsen with those and became confused. Per report her stopped giving those medications to her a couple of days ago. Yesterday she became very confused and was unaware of her own home surroundings so her brought her back to the ER for evaluation. She was found to have moderate pleural effusions with pneumonia, transaminitis, and thickened gallbladder. Her BNP was over 4000. Her Lactic was over 2. She was admission for severe sepsis from pneumonia. Today she starts she is doing much better. Her thinking is more clear today. She denies any SOB or chest pain. Source: patient Date Seen 06/01/18 Time Seen by a Provider: 06:24 Attending Physician Kevin Andrade MD PCP Paramjit Grove DO Referring Physician Date of Admission May 31, 2018 at 12:55 Home Medications & Allergies Home Medications Reviewed patient Home Medication Reconciliation performed by pharmacy medication reconciliations injection maintenance technician and/or nursing. Patients Allergies have been reviewed. Allergies Allergies Coded Allergies codeine (Verified Allergy, Unknown, 05/13/18) nausea/faints olanzapine (Verified Allergy, Unknown, 08/03/08) cefadroxil (Verified Adverse Reaction, Mild, MAKES HER DIZZY AND FAINTS, 05/15) faints Past Wptsshw-Oymajc-Iqpfky Hx Past Med/Social Hx: Reviewed Nursing Past Med/Soc Hx Patient Social History Marrital Status: Alcohol Use: Denies Use Recreational Drug Use: No Smoking Status: Never a Smoker 2nd Hand Smoke Exposure: No Physical Abuse Screen: No Sexual Abuse: No Recent Foreign Travel: No Contact w/other who traveled: No Recent Hopitalizations: Yes Recent Infectious Disease Expo: No Immunizations Up To Date Date of Pneumonia Vaccine: Mar 31, 2013 Date of Influenza Vaccine: May 15, 2018 Seasonal Allergies Seasonal Allergies: No Past Medical History Surgeries: Abdominal, Bladder Surgery, CABG, Hysterectomy Currently Using CPAP: Yes (SLEEP APNEA) Currently Using BIPAP: No Cardiac: Coronary Artery Disease, High Cholesterol, Hypertension 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: No Hysterectomy Genitourinary: Bladder Infection, Renal Failure, UTI-Chronic Gastrointestinal: Diverticulosis, Irritable Bowel Musculoskeletal: Arthritis, Fibromyalgia Endocrine: Hypothyroidsim HEENT: Cataract Loss of Vision: Denies Psychosocial: Anxiety, Depression History of Blood Disorders: No Family History Reviewed Nursing Family Hx Alzheimer's disease (mother) Cardiovascular disease (mother and father) Carotid artery stenosis (father) Hypercholesterolemia (mother and father) Hypertension Myocardial infarction (mother and father) No Pertinent Family Hx Review of Systems Constitutional: No chills, No fever; weakness EENTM: No blurred vision, No double vision, No nose congestion, No throat pain Respiratory: No cough, No dyspnea on exertion, No orthopnea, No phlegm, No short of breath Cardiovascular: No chest pain; edema, Hx of Intervention; No palpitations Gastrointestinal: No abdominal pain; constipation; No diarrhea, No nausea, No vomiting Genitourinary: No dysuria, No frequency Musculoskeletal: No joint pain, No muscle pain Skin: No lesions, No rash Psychiatric/Neurological: No Symptoms Reported Physical Exam Physical Exam Vital Signs Vital Signs - First Documented 05/31/18 05/31/18 11:10 14:30 Temp 97.6 Pulse 75 Resp 20 B/P (MAP) 129/83 (98) Pulse Ox 94 O2 Delivery Nasal Cannula O2 Flow Rate 2.00 Capillary Refill : Less Than 3 Seconds Height, Weight, BMI Height: 5'3.00" Weight: 142lbs. 4.0oz. [id number]; 25.2 BMI Method:Stated General Appearance: No Apparent Distress, WD/WN HEENT: PERRL/EOMI, Moist Mucous Membranes Neck: Non Tender, Supple Respiratory: No Respiratory Distress, Decreased Breath Sounds (in bases) Cardiovascular: Regular Rate, Rhythm, No Murmur Gastrointestinal: Normal Bowel Sounds, Non Tender, Soft Extremity: Normal Capillary Refill, No Calf Tenderness Neurologic/Psychiatric: Alert, Oriented x3, Normal Mood/Affect Skin: Normal Color, Warm/Dry Results Results/Procedures Labs Laboratory Tests 05/31/18 11:09 06/01/18 02:55 Patient resulted labs reviewed. Imaging: Reviewed Imaging Films, Reviewed Imaging Report Assessment/Plan Admission Diagnosis Severe Sepsis Admission Status: Inpatient Order (span 2 midnights) Reason for Inpatient Admission: needs IV abx, possible thoracentesis, cardiac evaluation, will take more than two midnights to stabilize for DC Diagnosis/Problems Diagnosis/Problems (1) Severe sepsis Assessment & Plan: Hypothermia with leukocytosis noted Lactic elevated no hypotension so no need for 30cc/kg bolus vanc and Zosyn ordered for HCAP coverage Cultures done in ER- await results (2) LLL pneumonia Status: Acute Assessment & Plan: with effusion Pulm consulted appreciate recs Qualifiers: Pneumonia type: due to unspecified organism Qualified Codes: J18.1 - Lobar pneumonia, unspecified organism (3) CHF (congestive heart failure) Status: Acute Assessment & Plan: Continue lasix Echo ordered Consult Cardiology Qualifiers: Heart failure type: systolic Heart failure chronicity: acute on chronic Qualified Codes: I50.23 - Acute on chronic systolic (congestive) heart failure (4) Thickening of wall of gallbladder with pericholecystic fluid Assessment & Plan: May be due to congestion Surgery consulted appreciate recs (5) Elevated LFTs Status: Acute Assessment & Plan: Likely due to congestion Will trend Tylenol level <10 (6) CKD (chronic kidney disease) stage 3, GFR 30-59 ml/min Status: Acute Assessment & Plan: Acute on CKD Creatinine improved slightly today but not yet to baseline Trend (7) Essential (primary) hypertension Assessment & Plan: Well controlled currently Trend (8) CAD (coronary artery disease) Status: Chronic Assessment & Plan: Extensive heart history Dr Waters consulted, appreciate recs Echo ordered Troponin ordered Qualifiers: Coronary Disease-Associated Artery/Lesion type: bypass graft [place] vs. transplanted heart: [place] heart Associated angina: without angina Qualified Codes: I25.810 - Atherosclerosis of coronary artery bypass graft(s) without angina pectoris Clinical Quality Measures DVT/VTE Risk/Contraindication: Risk Factor Score Per Nursin RFS Level Per Nursing on Admit: 3=High KEVIN ANDRADE MD Jun 01, 2018 06:23
[2018-06-01 08:00] VITALS: BP 135/82
--- NOTE | 2018-06-01 08:21 | Consultation-Cardiology ---
HPI-Cardiology Cardiology Consultation Date of Consultation 06/01/18 Date of Admission Time Seen by Provider: 08:15 Indication: Congestive heart failure HPI 72 years old lady with history of coronary artery disease, congestive heart failure, was discharged from the hospital recently. Patient condition continued to deteriorate, had more confusion, seen once in the emergency room and responded to Lasix and Xanax. Did not have fever but continued to have cough. She became disoriented and confused and brought to the emergency room, noted to have pneumonia with elevated lactic acid and elevated BNP and troponin. She denied any chest pain, denied any significant dyspnea. Denied any palpitation. No edema Home Medications & Allergies Allergies: Coded Allergies: codeine (Verified Allergy, Unknown, 05/13/18) nausea/faints olanzapine (Verified Allergy, Unknown, 08/03/08) cefadroxil (Verified Adverse Reaction, Mild, MAKES HER DIZZY AND FAINTS, 05/15/18) faints Home Medication List Reviewed: Yes TQQ-Isfedy-Ohzkpc Hx Patient Social History Marital Status: Alcohol Use: Denies Use Recreational Drug Use: No Smoking Status: Never a Smoker 2nd Hand Smoke Exposure: No Recent Foreign Travel: No Recent Infectious Disease Expo: No Recent Hopitalizations: Yes Physical Abuse Screen: No Sexual Abuse: No Immunizations Up To Date Date of Pneumonia Vaccine: Mar 31, 2013 Date of Influenza Vaccine: May 15, 2018 Past Medical History Past medical history as described below Family Medical History Significant Family History: No Pertinent Family Hx Family History: Alzheimer's disease (mother) Cardiovascular disease (mother and father) Carotid artery stenosis (father) Hypercholesterolemia (mother and father) Hypertension Myocardial infarction (mother and father) Review of Systems Constitutional: see HPI, malaise, weakness EENTM: see HPI Respiratory: see HPI, dyspnea on exertion Cardiovascular: see HPI; No chest pain, No edema, No Hx of Intervention, No palpitations, No syncope, No vascular heart diseas, No other Gastrointestinal: no symptoms reported, see HPI, constipation Genitourinary: no symptoms reported, see HPI Musculoskeletal: no symptoms reported, see HPI Skin: no symptoms reported, see HPI Psychiatric/Neurological: No Symptoms Reported, See HPI Reviewed Test Results Reviewed Test Results Lab Laboratory Tests Test 05/31/18 11:02 05/31/18 11:09 05/31/18 11:19 05/31/18 11:44 Range/Units Glucometer 185 H 70-110 MG/DL White Blood Count 13.8 H 4.3-11.0 10^3/uL Red Blood Count 3.40 L 4.35-5.85 10^6/uL Hemoglobin 11.3 L 11.5-16.0 G/DL Hematocrit 34 L 35-52 % Mean Corpuscular Volume 101 H 80-99 FL Mean Corpuscular Hemoglobin 33 25-34 PG Mean Corpuscular Hemoglobin Concent 33 32-36 G/DL Red Cell Distribution Width 13.7 10.0-14.5 % Platelet Count 413 H 130-400 10^3/uL Mean Platelet Volume 10.2 7.4-10.4 FL Neutrophils (%) (Auto) 73 42-75 % Lymphocytes (%) (Auto) 18 12-44 % Monocytes (%) (Auto) 8 0-12 % Eosinophils (%) (Auto) 1 0-10 % Basophils (%) (Auto) 0 0-10 % Neutrophils # (Auto) 10.1 H 1.8-7.8 X 10^3 Lymphocytes # (Auto) 2.4 1.0-4.0 X 10^3 Monocytes # (Auto) 1.1 H 0.0-1.0 X 10^3 Eosinophils # (Auto) 0.2 0.0-0.3 10^3/uL Basophils # (Auto) 0.1 0.0-0.1 10^3/uL Sodium Level 139 135-145 MMOL/L Potassium Level 3.9 3.6-5.0 MMOL/L Chloride Level 103 98-107 MMOL/L Carbon Dioxide Level 21 21-32 MMOL/L Anion Gap 15 H 5-14 MMOL/L Blood Urea Nitrogen 21 H 7-18 MG/DL Creatinine 1.70 H 0.60-1.30 MG/DL Estimat Glomerular Filtration Rate 29 BUN/Creatinine Ratio 12 Glucose Level 127 H 70-105 MG/DL Calcium Level 9.0 8.5-10.1 MG/DL Corrected Calcium 9.6 8.5-10.1 MG/DL Total Bilirubin 0.6 0.1-1.0 MG/DL Aspartate Amino Transf (AST/SGOT) 833 H 5-34 U/L Alanine Aminotransferase (ALT/SGPT) 435 H 0-55 U/L Alkaline Phosphatase 201 H 40-136 U/L Total Protein 5.9 L 6.4-8.2 GM/DL Albumin 3.2 3.2-4.5 GM/DL Lipase 75 8-78 U/L Urine Color YELLOW Urine Clarity CLEAR Urine pH 6 5-9 Urine Specific [place] 1.015 L 1.016-1.022 Urine Protein 2+ H NEGATIVE Urine Glucose (UA) NEGATIVE NEGATIVE Urine Ketones 1+ H NEGATIVE Urine Nitrite NEGATIVE NEGATIVE Urine Bilirubin NEGATIVE NEGATIVE Urine Urobilinogen 1 NORMAL MG/DL Urine Leukocyte Esterase 1+ H NEGATIVE Urine RBC (Auto) NEGATIVE NEGATIVE Urine RBC NONE /HPF Urine WBC 0-2 /HPF Urine Squamous Epithelial Cells NONE /HPF Urine Crystals NONE /LPF Urine Bacteria NEGATIVE /HPF Urine Casts NONE /LPF Urine Mucus NEGATIVE /LPF Urine Culture Indicated NO Prothrombin Time 18.6 H 12.2-14.7 SEC INR Comment 1.5 H 0.8-1.4 Lactic Acid Level 2.37 *H 0.50-2.00 MMOL/L B-Type Natriuretic Peptide 4576.7 H <100.0 PG/ML Test 05/31/18 13:13 06/01/18 02:25 06/01/18 02:55 Range/Units Lactic Acid Level 2.56 *H 0.50-2.00 MMOL/L Ammonia 31 11-32 UMOL/L Acetaminophen Level < 10 L 10-30 UG/ML Troponin I 1.38 *H <0.30 NG/ML White Blood Count 10.0 4.3-11.0 10^3/uL Red Blood Count 3.36 L 4.35-5.85 10^6/uL Hemoglobin 11.0 L 11.5-16.0 G/DL Hematocrit 34 L 35-52 % Mean Corpuscular Volume 101 H 80-99 FL Mean Corpuscular Hemoglobin 33 25-34 PG Mean Corpuscular Hemoglobin Concent 33 32-36 G/DL Red Cell Distribution Width 13.6 10.0-14.5 % Platelet Count 376 130-400 10^3/uL Mean Platelet Volume 10.4 7.4-10.4 FL Neutrophils (%) (Auto) 73 42-75 % Lymphocytes (%) (Auto) 15 12-44 % Monocytes (%) (Auto) 9 0-12 % Eosinophils (%) (Auto) 3 0-10 % Basophils (%) (Auto) 0 0-10 % Neutrophils # (Auto) 7.3 1.8-7.8 X 10^3 Lymphocytes # (Auto) 1.5 1.0-4.0 X 10^3 Monocytes # (Auto) 0.9 0.0-1.0 X 10^3 Eosinophils # (Auto) 0.3 0.0-0.3 10^3/uL Basophils # (Auto) 0.0 0.0-0.1 10^3/uL Sodium Level 139 135-145 MMOL/L Potassium Level 3.4 L 3.6-5.0 MMOL/L Chloride Level 100 98-107 MMOL/L Carbon Dioxide Level 22 21-32 MMOL/L Anion Gap 17 H 5-14 MMOL/L Blood Urea Nitrogen 18 7-18 MG/DL Creatinine 1.47 H 0.60-1.30 MG/DL Estimat Glomerular Filtration Rate 35 BUN/Creatinine Ratio 12 Glucose Level 97 70-105 MG/DL Calcium Level 8.6 8.5-10.1 MG/DL Corrected Calcium 9.4 8.5-10.1 MG/DL Total Bilirubin 0.8 0.1-1.0 MG/DL Aspartate Amino Transf (AST/SGOT) 508 H 5-34 U/L Alanine Aminotransferase (ALT/SGPT) 332 H 0-55 U/L Alkaline Phosphatase 166 H 40-136 U/L Total Protein 5.6 L 6.4-8.2 GM/DL Albumin 3.0 L 3.2-4.5 GM/DL Physical Exam Vital Signs Vital Signs - First Documented 05/31/18 05/31/18 11:10 14:30 Temp 97.6 Pulse 75 Resp 20 B/P (MAP) 129/83 (98) Pulse Ox 94 O2 Delivery Nasal Cannula O2 Flow Rate 2.00 Capillary Refill : Less Than 3 Seconds Height, Weight, BMI Height: 5'3.00" Weight: 142lbs. 4.0oz. 64.300117sb; 25.2 BMI Method:Stated General Appearance: WD/WN, Mild Distress Eyes: Bilateral Eye Normal Inspection, Bilateral Eye PERRL, Bilateral Eye EOMI HEENT: PERRL/EOMI, TMs Normal, Normal ENT Inspection, Pharynx Normal Neck: Full Range of Motion, Normal Inspection, Non Tender, Supple, Carotid Bruit Respiratory: Chest Non Tender, No Accessory Muscle Use, No Respiratory Distress , Crackles, Decreased Breath Sounds, Rales Cardiovascular: Regular Rate, Rhythm, No Edema, No JVD, Normal Peripheral Pulses, Systolic Murmur, Gallop/S3 Gastrointestinal: Normal Bowel Sounds, No Organomegaly, No Pulsatile Mass, Non Tender, Soft Back: Normal Inspection, No CVA Tenderness, No Vertebral Tenderness Extremity: Normal Capillary Refill, Normal Inspection, Normal Range of Motion, Non Tender, No Calf Tenderness, No Pedal Edema Neurologic/Psychiatric: Alert, Oriented x3, No Motor/Sensory Deficits, Normal Mood/Affect Skin: Normal Color, Warm/Dry Lymphatic: No Adenopathy A/P-Cardiology Admission Diagnosis Change in mental status Severe sepsis Pneumonia Congestive heart failure Non-ST elevation myocardial infarction Assessment/Plan Change in mental status, confusion, improving at this time, patient is alert and oriented and following commands. Sepsis with pneumonia, bilateral pleural effusion, receiving antibiotics. Improving and feeling better at this time. Congestive heart failure, acute on chronic left ventricular systolic dysfunction , known ejection fraction 35-40 percent, responded to diuretics. Continue to monitor as tolerated Elevated troponin level, non-ST elevation myocardial infarction, extensive history of coronary artery disease, started back on aspirin. Continue to monitor, planning to repeat echocardiogram Elevated liver enzymes, questionable passive hepatic congestion or acute hepatitis, patient was on Lipitor 80 mg which will be stopped at this point. Continue to monitor liver enzymes closely Coronary artery disease, history of CABG 4 using LALA to LAD, vein graft to OM , vein graft to the right PDA and vein graft to the diagonal artery. Last cardiac catheterization was done in September 2015 showed occluded vein graft to the diagonal artery and patent other bypasses, small vessel disease distally. Continue on aspirin and monitor troponin trend at this time. Valvular heart disease with severe mitral regurgitation, momm-eh-wsfuzsjw aortic valve stenosis. Repeating echocardiogram today. History of chest pain, currently denies any chest pain, EKG did not show any acute changes. Continue to monitor. History of Cecal volvulus status post resection, patient recovered and discharged on May 18, 2018. History of syncope with hypotensive episode, continue to monitor blood pressure. Hypertension, I will restart medication and monitor blood pressure Mild bilateral carotid stenosis, followed by heart and vascular care last ultrasound was done in May 2016 reporting moderate disease on the right and mild disease on the left. Hyperlipidemia, discontinue Lipitor due to elevated liver enzymes, continue to monitor lipids as an outpatient Diabetes mellitus, followed and managed by primary care physician Hypothyroidism, followed and managed by primary care physician Chronic kidney disease stage III, monitor renal function Clinical Quality Measures DVT/VTE Risk/Contraindication: Risk Factor Score Per Nursin RFS Level Per Nursing on Admit: 3=High SUZETTE COCHRAN MD Jun 01, 2018 08:21
[2018-06-01] MEDS ORDERED: KCL 20 MEQ TAB (K-DUR) PO NR (08:26)
[2018-06-01] MEDS: FUROSEMIDE 40 MG/4 ML INJ (LASIX) IVP SCH (09:00)
[2018-06-01] MEDS: meTOprolol TARTRATE 25 MG (LOPRESSOR) TABLET PO SCH ×2 (09:32→20:10)
[2018-06-01] MEDS: ASPIRIN E.C. 81 MG (ECOTRIN) TAB PO SCH (09:33)
[2018-06-01 12:00] VITALS: BP 124/63
--- NOTE | 2018-06-01 13:36 | Consultation ---
History of Present Illness History of Present Illness Patient Consulted On(dennise/time) 06/01/18 13:33 Date Seen by Provider: Jun 01, 2018 Time Seen by Provider: 11:10 Reason for Visit: Congestive heart failure History of Present Illness Patient recently discharged from right colon resection to manage his cecal volvulus. Admitted with exacerbation of her congestive heart failure. I've been asked to see her regarding sludge in the gallbladder noticed on CT scan. Ultrasound however did not reveal these findings. Following diuretics, her dyspnea has improved. She has not had any bowel movements for 5 days, reporting just passing flatus. Allergies and Home Medications Allergies Coded Allergies: codeine (Verified Allergy, Unknown, 05/13/18) nausea/faints olanzapine (Verified Allergy, Unknown, 08/03/08) cefadroxil (Verified Adverse Reaction, Mild, MAKES HER DIZZY AND FAINTS, 05/15/18) faints Home Medications Alprazolam 0.5 Mg Tablet, 1-2 TAB PO Q6H PRN for ANXIETY Prescribed by: MARICHUY WILLIS on 05/27/18 1031 Atorvastatin Calcium 80 Mg Tablet, 80 MG PO HS, (Reported) Brexpiprazole 1 Mg Tablet, 1 MG PO HS, (Reported) Cholecalciferol (Vitamin D3) 5,000 Unit Capsule, 5,000 UNIT PO HS, (Reported) Colestipol HCl 1 Gm Tablet, 1 GM PO BID, (Reported) Cyanocobalamin (Vitamin B-12) 1,000 Mcg Tablet, 1,000 MCG PO HS, (Reported) Duloxetine HCl 60 Mg Capsule.dr, 60 MG PO BID, (Reported) Furosemide 20 Mg Tablet, 20 MG PO DAILY Prescribed by: MARICHUY WILLIS on 05/27/18 1031 Gabapentin 600 Mg Tablet, 600 MG PO BID, (Reported) Guaifenesin 400 Mg Tablet, 400 MG PO Q4H PRN for CONGESTION, (Reported) Hydrocodone/Acetaminophen 1 Each Tablet, 1-2 EACH PO Q4-6hr PRN for PAIN- MODERATE Prescribed by: DIANELYS CORDON on 05/18/18 1110 Levothyroxine Sodium 88 Mcg Tablet, 88 MCG PO HS, (Reported) Loperamide HCl 2 Mg Tablet, 2 MG PO UD PRN for DIARRHEA, (Reported) Metoprolol Tartrate 25 Mg Tablet, 25 MG PO BID, (Reported) Mv,Ca,Iron,Min/FA/Phytosterol 1 Each Tablet, 1 TAB PO HS, (Reported) Niacin 1,000 Mg Tab.er.24h, 1,000 MG PO HS, (Reported) [place]-3 Acid Ethyl Esters 1 Gm Capsule, 2 GM PO BID, (Reported) TAKES 2 (1GM) CAPSULES Omeprazole 20 Mg Capsule.dr, 20 MG PO HS, (Reported) Ondansetron 4 Mg Tab.rapdis, 4 MG PO Q6H PRN for NAUSEA/VOMITING Prescribed by: MARICHUY WILLIS on 05/27/18 1031 Tramadol HCl 50 Mg Tablet, 50 MG PO Q6H PRN for PAIN Prescribed by: MARICHUY WILLIS on 05/27/18 1031 Patient Home Medication List Home Medication List Reviewed: Yes Past Micsjdl-Wgkypl-Mghdzu Hx Past Med/Social Hx: Reviewed Nursing Past Med/Soc Hx Patient Social History Alcohol Use: Denies Use Recreational Drug Use: No Smoking Status: Never a Smoker 2nd Hand Smoke Exposure: No Recent Foreign Travel: No Contact w/Someone Who Travel: No Recent Infectious Disease Expo: No Recent Hopitalizations: Yes Physical Abuse: No Sexual Abuse: No Mistreated: No Fear: No Immunizations Up To Date Date of Pneumonia Vaccine: Mar 31, 2013 Date of Influenza Vaccine: May 15, 2018 Seasonal Allergies Seasonal Allergies: No Past Medical History Surgeries: Yes (Hiatal Hernia, Breast BX, Bladder surgery x 3 (had mesh sling, tie up, ) Abdominal, Bladder Surgery, CABG, Hysterectomy Respiratory: Yes Sleep Apnea Currently Using CPAP: Yes (SLEEP APNEA) Currently Using BIPAP: No Cardiac: Yes Coronary Artery Disease, High Cholesterol, Hypertension Neurological: No 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 Genitourinary: Yes Bladder Infection, Renal Failure, UTI-Chronic Gastrointestinal: Yes Diverticulosis, Irritable Bowel Musculoskeletal: Yes Arthritis, Fibromyalgia Endocrine: Yes Hypothyroidsim HEENT: Yes Cataract Loss of Vision: Denies Cancer: No Psychosocial: Yes Anxiety, Depression Integumentary: No Blood Disorders: No Family Medical History Reviewed Nursing Family Hx Alzheimer's disease (mother) Cardiovascular disease (mother and father) Carotid artery stenosis (father) Hypercholesterolemia (mother and father) Hypertension Myocardial infarction (mother and father) No Pertinent Family Hx Review of Systems-General Constitutional: malaise, weakness EENTM: no symptoms reported Respiratory: cough Cardiovascular: see HPI Gastrointestinal: see HPI Genitourinary: no symptoms reported Musculoskeletal: muscle weakness Skin: no symptoms reported Psychiatric/Neurological: No Symptoms Reported Physical Exam-General Problems Physical Exam Vital Signs Vital Signs - First Documented 05/31/18 05/31/18 11:10 14:30 Temp 97.6 Pulse 75 Resp 20 B/P (MAP) 129/83 (98) Pulse Ox 94 O2 Delivery Nasal Cannula O2 Flow Rate 2.00 Capillary Refill : Less Than 3 Seconds General Appearance: no apparent distress HEENT: normal ENT inspection Respiratory: decreased breath sounds Cardiovascular: regular rate, rhythm Gastrointestinal: non tender, soft Extremities: non-tender Neurologic/Psychiatric: alert, oriented x 3 Skin: warm/dry Comments surgical incision dry with intact gisella Assessment/Plan Assessment/Plan Admission Diagnosis/Plan lady with cecal wall was, surgically corrected. Congestive heart failure. Sludge in the gallbladder found on CT scan. Elevated liver enzymes. Left pleural effusion. Negative gallbladder ultrasound. At this point, it is essential to prioritize management of her congestive heart failure. It is likely that the elevated LFTs are due to passive hepatic congestion due to cardiac failure. Since ultrasound of the gallbladder is non- yielding, it is reasonable to avoid cholecystectomy. She would receive magnesium citrate to promote resumption of bowel movements. Admission Status: Inpatient Order (span 2 midnights) Clinical Quality Measures DVT/VTE Risk/Contraindication: Risk Factor Score Per Nursin RFS Level Per Nursing on Admit: 3=High MARIANA HERNANDEZ MD Jun 01, 2018 13:36
[2018-06-01] MEDS ORDERED: MAGNESIUM CITRATE 300 ML BTL PO NR (13:42)
[2018-06-01] MEDS: VANCOMYCIN 1 GM/NS 250 ML IVPB IV SCH ×2 (15:25)
[2018-06-01 16:00] VITALS: BP 112/67
[2018-06-01 19:40] VITALS: BP 121/56
[2018-06-02] VITALS (8 sets, daily range): BP systolic 104–136; BP diastolic 52–68
[2018-06-02] MEDS: PIPERACILLIN/TAZO 4.5 GM/NS 100 ML IV SCH ×6 (03:34→18:24)
[2018-06-02] MEDS: RT-ALBUTEROL/IPRATROPIUM 3 ML (DUONEB) VIAL INH SCH ×6 (03:34→22:57)
[2018-06-02 05:54] LABS: HEMOGLOBIN 10.6 G/DL (11.5-16.0); MEAN PLATELET VOLUME 9.4 FL (7.4-10.4); RED BLOOD COUNT 3.29 10^6/uL (4.35-5.85)
[2018-06-02 06:14] LABS: ALBUMIN 3.1 GM/DL (3.2-4.5); BILIRUBIN,TOTAL 1.2 MG/DL (0.1-1.0); CALCIUM 8.7 MG/DL (8.5-10.1); CREATININE SERUM 1.42 MG/DL (0.60-1.30); POTASSIUM 3.6 MMOL/L (3.6-5.0); TOTAL PROTEIN 5.8 GM/DL (6.4-8.2)
--- NOTE | 2018-06-02 08:09 | Pulmonary Consultation ---
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 She was discharged about 1 wk ago. presented to ED this visit secondary to worsening weakness, and confusion. SHe was recently started on pain meds and stopped giving her pain med meds secondary to worsening lethargy and confusion. Pt was admitted to 4th floor secondary to confusion and findings of moderate pleural effusion, pneumonia, and transaminitis. BNP is > 4000. Lactic acid over 2. I am consulted for pulmonary management. Allergies and Home Medications Allergies Coded Allergies: codeine (Verified Allergy, Unknown, 05/13/18) nausea/faints olanzapine (Verified Allergy, Unknown, 08/03/08) cefadroxil (Verified Adverse Reaction, Mild, MAKES HER DIZZY AND FAINTS, 05/15/18) faints Home Medications Aspirin 81 Mg Tablet.dr, 81 MG PO DAILY Prescribed by: THEA BECERRA on 06/04/18 1048 Atorvastatin Calcium 80 Mg Tablet, 80 MG PO HS, (Reported) Brexpiprazole 1 Mg Tablet, 1 MG PO HS, (Reported) Cholecalciferol (Vitamin D3) 5,000 Unit Capsule, 5,000 UNIT PO HS, (Reported) Colestipol HCl 1 Gm Tablet, 1 GM PO BID, (Reported) Cyanocobalamin (Vitamin B-12) 1,000 Mcg Tablet, 1,000 MCG PO HS, (Reported) Duloxetine HCl 60 Mg Capsule.dr, 60 MG PO BID, (Reported) Furosemide 40 Mg Tablet, 40 MG PO DAILY Prescribed by: THEA BECERRA on 06/04/18 1057 Gabapentin 600 Mg Tablet, 600 MG PO BID, (Reported) Guaifenesin 400 Mg Tablet, 400 MG PO Q4H PRN for CONGESTION, (Reported) Levothyroxine Sodium 88 Mcg Tablet, 88 MCG PO HS, (Reported) Loperamide HCl 2 Mg Tablet, 2 MG PO UD PRN for DIARRHEA, (Reported) Metoprolol Tartrate 25 Mg Tablet, 25 MG PO BID, (Reported) Mv,Ca,Iron,Min/FA/Phytosterol 1 Each Tablet, 1 TAB PO HS, (Reported) Niacin 1,000 Mg Tab.er.24h, 1,000 MG PO HS, (Reported) [place]-3 Acid Ethyl Esters 1 Gm Capsule, 2 GM PO BID, (Reported) TAKES 2 (1GM) CAPSULES Omeprazole 20 Mg Capsule.dr, 20 MG PO HS, (Reported) Potassium Chloride 10 Meq Capsule.er, 10 MEQ PO DAILY Prescribed by: THEA BECERRA on 06/04/18 1057 Past Gzbndoc-Qxdfxs-Loodhc Hx Past Med/Social Hx: Reviewed Nursing Past Med/Soc Hx Patient Social History Alcohol Use: Denies Use Recreational Drug Use: No Smoking Status: Never a Smoker 2nd Hand Smoke Exposure: No Recent Foreign Travel: No Contact w/Someone Who Travel: No Recent Infectious Disease Expo: No Recent Hopitalizations: Yes Physical Abuse: No Sexual Abuse: No Mistreated: No Fear: No Immunizations Up To Date Date of Pneumonia Vaccine: Mar 31, 2013 Date of Influenza Vaccine: May 15, 2018 Seasonal Allergies Seasonal Allergies: No Past Medical History Surgeries: Yes (Hiatal Hernia, Breast BX, Bladder surgery x 3 (had mesh sling, tie up, ) Abdominal, Bladder Surgery, CABG, Hysterectomy Respiratory: Yes Sleep Apnea Currently Using CPAP: Yes (SLEEP APNEA) Currently Using BIPAP: No Cardiac: Yes Coronary Artery Disease, High Cholesterol, Hypertension Neurological: No 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 Genitourinary: Yes Bladder Infection, Renal Failure, UTI-Chronic Gastrointestinal: Yes Diverticulosis, Irritable Bowel Musculoskeletal: Yes Arthritis, Fibromyalgia Endocrine: Yes Hypothyroidsim HEENT: Yes Cataract Loss of Vision: Denies Cancer: No Psychosocial: Yes Anxiety, Depression Integumentary: No Blood Disorders: No Family Medical History Reviewed Nursing Family Hx Alzheimer's disease (mother) Cardiovascular disease (mother and father) Carotid artery stenosis (father) Hypercholesterolemia (mother and father) Hypertension Myocardial infarction (mother and father) No Pertinent Family Hx Review of Systems Time Seen by Provider: 10:42 Sepsis Event Evaluation Height, Weight, BMI Height: 5'3.00" Weight: 142lbs. 4.0oz. 64.496661pb; 25.2 BMI Method:Stated Exam Exam Vital Signs Date Time Temp Pulse Resp B/P (MAP) Pulse Ox O2 Delivery O2 Flow Rate FiO2 06/02/18 07:32 97 Nasal Cannula 1.00 06/02/18 04:00 98.0 78 22 122/68 (86) 98 Nasal Cannula 2.00 06/02/18 03:34 99 Nasal Cannula 1.00 06/02/18 01:00 70 06/02/18 00:00 97.3 72 24 124/60 (81) 94 Nasal Cannula 2.00 06/01/18 22:45 98 Nasal Cannula 1.50 06/01/18 20:00 Nasal Cannula 3.00 06/01/18 19:40 96.5 77 20 121/56 (77) 97 Nasal Cannula 2.00 06/01/18 19:37 76 06/01/18 19:24 94 Nasal Cannula 2.00 06/01/18 16:00 97.2 79 20 112/67 (82) 97 Nasal Cannula 2.00 06/01/18 15:19 97 Nasal Cannula 2.00 06/01/18 13:00 71 06/01/18 12:00 97.2 75 20 124/63 (83) 94 Nasal Cannula 2.00 06/01/18 11:14 95 Nasal Cannula 2.00 I & O 06/02/18 07:00 Intake Total 4330 ml Output Total 3900 ml Balance 430 ml Height & Weight Height: 5'3.00" Weight: 142lbs. 4.0oz. 64.547072oj; 25.2 BMI Method:Stated General Appearance: WD/WN, Mild Distress HEENT: PERRL/EOMI, TMs Normal, Normal ENT Inspection, Pharynx Normal Neck: Full Range of Motion, Normal Inspection, Non Tender, Supple, Carotid Bruit Respiratory: Chest Non Tender, No Accessory Muscle Use, No Respiratory Distress , Crackles, Decreased Breath Sounds, Rales Cardiovascular: Regular Rate, Rhythm, No Edema, No JVD, Normal Peripheral Pulses, Systolic Murmur, Gallop/S3 Capillary Refill: Less Than 3 Seconds Gastrointestinal: non tender, soft Extremity: Normal Capillary Refill, Normal Inspection, Normal Range of Motion, Non Tender, No Calf Tenderness, No Pedal Edema Neurologic/Psychiatric: Alert, Oriented x3, No Motor/Sensory Deficits, Normal Mood/Affect Skin: Normal Color, Warm/Dry Lymphatic: No Adenopathy Results Lab Laboratory Tests 05/31/18 11:09 06/01/18 02:55 06/02/18 05:44 Assessment/Plan Assessment/Plan Pulmonary edema with bilateral R>L pleural effusions -BNP was on admission -No leukocytosis since admission -Cultures are negative -Repeat CXR and BNP -Agree with Lasix 40mg daily CHF NSTEMI CKD -Monitor MS changes Elevated LFTs -improving Change in mental status UDAY ALVARADO DO Jun 02, 2018 08:09
--- NOTE | 2018-06-02 08:35 | Diagnostic Imaging Report ---
INDICATION: Shortness of breath. Time of exam: 8:21 AM Correlation is made with prior study from 05/31/2018. There are changes of median sternotomy and CABG. The lungs are clear. No infiltrate or effusion is seen. There is no pneumothorax. IMPRESSION: No acute cardiopulmonary process is detected. Dictated by: Dictated on workstation # [id number]
[2018-06-02 08:39] LABS: INR 1.3 (0.8-1.4); PROTHROMBIN TIME PATIENT 16.6 SEC (12.2-14.7)
--- NOTE | 2018-06-02 08:45 | Cardiology Progress Note ---
Subjective Date Seen by Provider: Jun 02, 2018 Time Seen by Provider: 08:43 Subjective/Events-last exam Patient is in bed, no new complaints. Denies any chest pain or dyspnea. Focused Exam Lactate Level 05/31/18 11:44: Lactic Acid Level 2.37*H 05/31/18 13:13: Lactic Acid Level 2.56*H Objective-Cardiology Exam Last Set of Vital Signs Vital Signs 06/02/18 08:17 Temp 97.8 Pulse 77 Resp 14 B/P (MAP) 136/63 (87) Pulse Ox 97 O2 Delivery Nasal Cannula O2 Flow Rate 1.00 Capillary Refill : Less Than 3 Seconds I&O Intake and Output 06/02/18 00:00 Intake Total 2230 ml Output Total 4050 ml Balance -1820 ml Intake Oral 1780 ml IV Total 450 ml Output Urine Total 4050 ml # Bowel Movements 2 General: Alert, Oriented X3, Cooperative HEENT: Atraumatic, PERRLA Neck: Supple, No JVD, No Thyromegaly Lungs: Other (diminished breath sounds bibasilarly) Heart: Regular Rate, Normal S1, Normal S2 Abdomen: Normal Bowel Sounds, No Tenderness Extremities: No Clubbing, No Cyanosis Skin: No Rashes, No Breakdown Neuro: Normal Gait, Cranial Nerves 3-12 NL Psych/Mental Status: Mental Status NL, Mood NL Results Lab Laboratory Tests 06/02/18 05:44 A/P-Cardiology Admission Diagnosis Change in mental status Severe sepsis Pneumonia Congestive heart failure Non-ST elevation myocardial infarction Assessment/Plan Change in mental status, confusion, improving at this time, patient is alert and oriented and following commands. Sepsis with pneumonia, bilateral pleural effusion, receiving antibiotics. Improving and feeling better at this time. Congestive heart failure, acute on chronic left ventricular systolic dysfunction , known ejection fraction 35-40 percent, responded to diuretics. Continue to monitor as tolerated Elevated troponin level, non-ST elevation myocardial infarction, extensive history of coronary artery disease, started back on aspirin. Continue to monitor, planning to repeat echocardiogram today. Elevated liver enzymes, questionable passive hepatic congestion or acute hepatitis, patient was on Lipitor 80 mg which will be stopped at this point. Trending down. Continue to monitor liver enzymes closely Coronary artery disease, history of CABG 4 using LALA to LAD, vein graft to OM , vein graft to the right PDA and vein graft to the diagonal artery. Last cardiac catheterization was done in September 2015 showed occluded vein graft to the diagonal artery and patent other bypasses, small vessel disease distally. Continue on aspirin and monitor troponin trend at this time. Valvular heart disease with severe mitral regurgitation, [id number] aortic valve stenosis. Repeating echocardiogram today. History of chest pain, currently denies any chest pain, EKG did not show any acute changes. Continue to monitor. History of Cecal volvulus status post resection, patient recovered and discharged on May 18, 2018. History of syncope with hypotensive episode, continue to monitor blood pressure. Hypertension,controlled, continue to monitor. Mild bilateral carotid stenosis, followed by heart and vascular care last ultrasound was done in May 2016 reporting moderate disease on the right and mild disease on the left. Hyperlipidemia, discontinue Lipitor due to elevated liver enzymes, continue to monitor lipids as an outpatient Diabetes mellitus, followed and managed by primary care physician Hypothyroidism, followed and managed by primary care physician Chronic kidney disease stage III, monitor renal function Clinical Quality Measures DVT/VTE Risk/Contraindication: Risk Factor Score Per Nursin RFS Level Per Nursing on Admit: 3=High ESA LAZCANO Jun 02, 2018 08:45
[2018-06-02] MEDS: meTOprolol TARTRATE 25 MG (LOPRESSOR) TABLET PO SCH ×2 (09:21→20:39)
[2018-06-02] MEDS: FUROSEMIDE 40 MG/4 ML INJ (LASIX) IVP SCH (09:21)
[2018-06-02] MEDS: ASPIRIN E.C. 81 MG (ECOTRIN) TAB PO SCH (09:21)
--- NOTE | 2018-06-02 09:36 | Cardiology Progress Note ---
Subjective Date Seen by Provider: Jun 02, 2018 Time Seen by Provider: 09:33 Subjective/Events-last exam Patient is laying down in bed, feeling better today, breathing better. No chest pain was reported. Review of Systems General: No Chills, No Night Sweats, No Fatigue, No Malaise, No Appetite, No Other HEENT: No Head Aches, No Visual Changes, No Eye Pain, No Ear Pain, No Dysphasia , No Sinus Congestion, No Post Nasal Drip, No Sore Throat, No Other Pulmonary: No Dyspnea, No Cough, No Pleuritic Chest Pain, No Other Cardiovascular: No: Chest Pain, Palpitations, Orthopnea, Paroxysmal Noc. Dyspnea, Edema, Lt Headedness, Other Focused Exam Lactate Level 05/31/18 11:44: Lactic Acid Level 2.37*H 05/31/18 13:13: Lactic Acid Level 2.56*H Objective-Cardiology Exam Last Set of Vital Signs Vital Signs 06/02/18 08:17 Temp 97.8 Pulse 77 Resp 14 B/P (MAP) 136/63 (87) Pulse Ox 97 O2 Delivery Nasal Cannula O2 Flow Rate 1.00 Capillary Refill : Less Than 3 Seconds I&O Intake and Output 06/02/18 00:00 Intake Total 2230 ml Output Total 4050 ml Balance -1820 ml Intake Oral 1780 ml IV Total 450 ml Output Urine Total 4050 ml # Bowel Movements 2 General: Alert, Oriented X3, Cooperative HEENT: Atraumatic, PERRLA Neck: Supple, No JVD, No Thyromegaly Lungs: Other (diminished breath sounds bibasilarly) Heart: Regular Rate, Normal S1, Normal S2 Abdomen: Normal Bowel Sounds, No Tenderness Extremities: No Clubbing, No Cyanosis Skin: No Rashes, No Breakdown Neuro: Normal Gait, Cranial Nerves 3-12 NL Psych/Mental Status: Mental Status NL, Mood NL Results Lab Laboratory Tests 06/02/18 05:44 A/P-Cardiology Admission Diagnosis Change in mental status Severe sepsis Pneumonia Congestive heart failure Non-ST elevation myocardial infarction Assessment/Plan Status post change in mental status, confusion, improved. Continue to monitor Sepsis with pneumonia, bilateral pleural effusion, receiving antibiotics. Reporting improvement. Continue to monitor Congestive heart failure, acute on chronic left ventricular systolic dysfunction , ejection fraction has reduced, currently 25-30 percent. Continue on diuretics and monitor Elevated troponin level, non-ST elevation myocardial infarction, extensive history of coronary artery disease, started back on aspirin. Continue to monitor Patient has extensive history of coronary artery disease and severe mitral regurgitation, dilatation of the left ventricle and left atrium. Patient will need to have cardiac catheterization and possible consideration for mitral valve ring placement, I discussed with her about referral as an outpatient to for evaluation Elevated liver enzymes, questionable passive hepatic congestion or acute hepatitis, patient was on Lipitor 80 mg which will be stopped at this point. Trending down. Continue to monitor liver enzymes closely Coronary artery disease, history of CABG 4 using LALA to LAD, vein graft to OM , vein graft to the right PDA and vein graft to the diagonal artery. Last cardiac catheterization was done in September 2015 showed occluded vein graft to the diagonal artery and patent other bypasses, small vessel disease distally. Continue with conservative management at this time. Valvular heart disease with severe mitral regurgitation, [id number] aortic valve stenosis. Repeating echocardiogram today. History of chest pain, currently denies any chest pain, EKG did not show any acute changes. Continue to monitor. History of Cecal volvulus status post resection, patient recovered and discharged on May 18, 2018. History of syncope with hypotensive episode, continue to monitor blood pressure. Hypertension,controlled, continue to monitor. Mild bilateral carotid stenosis, followed by heart and vascular care last ultrasound was done in May 2016 reporting moderate disease on the right and mild disease on the left. Hyperlipidemia, discontinue Lipitor due to elevated liver enzymes, continue to monitor lipids as an outpatient Diabetes mellitus, followed and managed by primary care physician Hypothyroidism, followed and managed by primary care physician Chronic kidney disease stage III, monitor renal function Clinical Quality Measures DVT/VTE Risk/Contraindication: Risk Factor Score Per Nursin RFS Level Per Nursing on Admit: 3=High SUZETTE COCHRAN MD Jun 02, 2018 09:36
[2018-06-02] MEDS ORDERED: TROUGH ORDER-PHARMACY XX NR (14:00)
--- NOTE | 2018-06-02 16:43 | Progress Note-Hospitalist ---
Progress Note Progress Notes/Assess & Plan Date Seen 06/02/18 Time Seen by Provider: 16:40 Assessment & Plan The patient is a 72-year-old white female who had surgical treatment of a cecal volvulus and was discharged from that admission on 05/18. She returned to the emergency room on 05/27 with concerns about altered alertness and thought process which was prescribed to her pain medicine. She then went home and returned on 05/31 and was reevaluated and found to have a pneumonia. She reports that she is feeling much better at this time. This is day number 2 post admission. Physical exam: She is a alert and pleasant. There is no evidence of distress or tachypnea. Breath sounds are clear. CV is regular. Abdomen is soft. Extremities show no pedal edema. Impression: Left basilar pneumonia. Plan: Continue present antibiotics and pulmonary toilet. Focused Exam Lactate Level 05/31/18 11:44: Lactic Acid Level 2.37*H 05/31/18 13:13: Lactic Acid Level 2.56*H GIANCARLO METCALF MD Jun 02, 2018 16:43
[2018-06-02] MEDS: VANCOMYCIN 1 GM/NS 250 ML IVPB IV SCH ×2 (18:24)
[2018-06-02] MEDS: fentaNYL INJECTION 100 MCG/2 ML AMP IVP PRN (18:31)
--- NOTE | 2018-06-02 21:00 | Progress Note ---
Subjective Date Seen by a Provider: Jun 02, 2018 Time Seen by a Provider: 11:36 Subjective/Events-last exam Patient had large bowel movement today. Feeling better. No shortness of breath no abdominal pain no chest pain. Patient denies any nausea vomiting fever sweats chills shortness of breath or chest pain. Focused Exam Lactate Level 05/31/18 11:44: Lactic Acid Level 2.37*H 05/31/18 13:13: Lactic Acid Level 2.56*H Objective Exam Vital Signs Date Time Temp Pulse Resp B/P (MAP) Pulse Ox O2 Delivery O2 Flow Rate FiO2 06/02/18 20:39 77 117/54 (75) 06/02/18 18:38 90 Nasal Cannula 1.00 06/02/18 16:10 97.8 73 20 110/57 (74) 98 Nasal Cannula 1.00 06/02/18 15:17 96 Nasal Cannula 1.00 06/02/18 13:00 64 06/02/18 12:00 97.5 83 20 112/55 (74) 96 Nasal Cannula 1.00 06/02/18 10:56 92 Nasal Cannula 1.00 06/02/18 08:17 97.8 77 14 136/63 (87) 97 Nasal Cannula 1.00 06/02/18 08:00 Nasal Cannula 1.50 06/02/18 07:32 97 Nasal Cannula 1.00 06/02/18 07:00 73 06/02/18 04:00 98.0 78 22 122/68 (86) 98 Nasal Cannula 2.00 06/02/18 03:34 99 Nasal Cannula 1.00 06/02/18 01:00 70 06/02/18 00:00 97.3 72 24 124/60 (81) 94 Nasal Cannula 2.00 06/01/18 22:45 98 Nasal Cannula 1.50 I & O 06/02/18 07:00 Intake Total 4330 ml Output Total 3900 ml Balance 430 ml Capillary Refill : Less Than 3 Seconds General Appearance: No Apparent Distress, WD/WN HEENT: PERRL/EOMI, TMs Normal, Normal ENT Inspection, Pharynx Normal Neck: Full Range of Motion, Normal Inspection, Non Tender, Supple, Carotid Bruit Respiratory: Chest Non Tender, No Accessory Muscle Use, No Respiratory Distress , Crackles, Decreased Breath Sounds Cardiovascular: Regular Rate, Rhythm Gastrointestinal: non tender, soft, other (Incision no signs of infection Steri -Strips present) Extremity: Normal Capillary Refill, Normal Inspection, Normal Range of Motion, Non Tender, No Calf Tenderness, No Pedal Edema Neurologic/Psychiatric: Alert, Oriented x3, No Motor/Sensory Deficits, Normal Mood/Affect Skin: Normal Color, Warm/Dry Lymphatic: No Adenopathy Results Lab Laboratory Tests 06/02/18 05:44: White Blood Count 7.0, Red Blood Count 3.29L, Hemoglobin 10.6L, Hematocrit 33L, Mean Corpuscular Volume 101H, Mean Corpuscular Hemoglobin 32, Mean Corpuscular Hemoglobin Concent 32, Red Cell Distribution Width 14.0, Platelet Count 346, Mean Platelet Volume 9.4, Prothrombin Time 16.6H, INR Comment 1.3, Sodium Level 141, Potassium Level 3.6, Chloride Level 98, Carbon Dioxide Level 29, Anion Gap 14, Blood Urea Nitrogen 13, Creatinine 1.42H, Estimat Glomerular Filtration Rate 36, BUN/Creatinine Ratio 9, Glucose Level 95, Calcium Level 8.7, Corrected Calcium 9.4, Total Bilirubin 1.2H, Aspartate Amino Transf (AST/SGOT) 243H, Alanine Aminotransferase (ALT/SGPT) 242H, Alkaline Phosphatase 137H, Troponin I 1.17*H, B-Type Natriuretic Peptide 3361.9H, Total Protein 5.8L, Albumin 3.1L 06/02/18 14:15: Vancomycin Level Trough 18.4 Microbiology 05/31/18 Blood Culture - Preliminary, Resulted No growth Assessment/Plan Assessment/Plan Assessment/Plan lady with cecal wall was, surgically corrected. Congestive heart failure. Sludge in the gallbladder found on CT scan. Elevated liver enzymes. Left pleural effusion. Negative gallbladder ultrasound. I do not feel the gallbladder is having issues. We'll repeat labs in the morning to trend liver enzymes. Patient with large bowel movement today and feeling better afterwards. No surgical intervention at this time will continue to follow Clinical Quality Measures DVT/VTE Risk/Contraindication: Risk Factor Score Per Nursin RFS Level Per Nursing on Admit: 3=High ANGELITO WAN DO Jun 02, 2018 21:00
[2018-06-03] MEDS: RT-ALBUTEROL/IPRATROPIUM 3 ML (DUONEB) VIAL INH SCH ×4 (02:25→20:12)
[2018-06-03] MEDS: PIPERACILLIN/TAZO 4.5 GM/NS 100 ML IV SCH ×6 (02:52→18:10)
[2018-06-03 04:15] VITALS: BP 126/61
[2018-06-03 06:42] LABS: HEMOGLOBIN 9.9 G/DL (11.5-16.0); MEAN PLATELET VOLUME 9.8 FL (7.4-10.4); RED BLOOD COUNT 3.05 10^6/uL (4.35-5.85); RED CELL DISTRIBUTION WIDTH 14.2 % (10.0-14.5); WHITE BLOOD COUNT 6.3 10^3/uL (4.3-11.0)
[2018-06-03 06:55] LABS: ALBUMIN 2.9 GM/DL (3.2-4.5); BILIRUBIN,TOTAL 1.1 MG/DL (0.1-1.0); CALCIUM 8.6 MG/DL (8.5-10.1); CREATININE SERUM 1.39 MG/DL (0.60-1.30); POTASSIUM 3.4 MMOL/L (3.6-5.0); TOTAL PROTEIN 5.4 GM/DL (6.4-8.2)
--- NOTE | 2018-06-03 07:06 | Pulmonary Progress Note ---
Subjective Time Seen by a Provider: 07:04 Subjective/Events-last exam No complications noted. Sepsis Event Evaluation Height, Weight, BMI Height: 5'3.00" Weight: 142lbs. 4.0oz. 64.017255ys; 25.2 BMI Method:Stated Focused Exam Lactate Level 05/31/18 11:44: Lactic Acid Level 2.37*H 05/31/18 13:13: Lactic Acid Level 2.56*H Exam Exam Vital Signs Date Time Temp Pulse Resp B/P (MAP) Pulse Ox O2 Delivery O2 Flow Rate FiO2 06/03/18 06:31 98 Room Air 06/03/18 04:15 97.8 78 18 126/61 (82) 99 Nasal Cannula 1.00 06/03/18 02:26 98 Nasal Cannula 1.00 06/03/18 01:00 74 06/02/18 23:20 98.4 79 18 116/57 (76) 98 Nasal Cannula 1.00 06/02/18 23:00 98 Nasal Cannula 1.00 06/02/18 20:39 77 117/54 (75) 06/02/18 20:05 98.2 76 20 104/52 (69) 98 Nasal Cannula 1.00 06/02/18 20:00 98 Nasal Cannula 1.50 06/02/18 19:00 70 06/02/18 18:38 90 Nasal Cannula 1.00 06/02/18 16:10 97.8 73 20 110/57 (74) 98 Nasal Cannula 1.00 06/02/18 15:17 96 Nasal Cannula 1.00 06/02/18 13:00 64 06/02/18 12:00 97.5 83 20 112/55 (74) 96 Nasal Cannula 1.00 06/02/18 10:56 92 Nasal Cannula 1.00 06/02/18 08:17 97.8 77 14 136/63 (87) 97 Nasal Cannula 1.00 06/02/18 08:00 Nasal Cannula 1.50 06/02/18 07:32 97 Nasal Cannula 1.00 I & O 06/03/18 07:00 Intake Total 2220 ml Output Total 2300 ml Balance -80 ml Height & Weight Height: 5'3.00" Weight: 142lbs. 4.0oz. 64.157761dt; 25.2 BMI Method:Stated General Appearance: No Apparent Distress, WD/WN HEENT: PERRL/EOMI, TMs Normal, Normal ENT Inspection, Pharynx Normal Neck: Full Range of Motion, Normal Inspection, Non Tender, Supple, Carotid Bruit Respiratory: Chest Non Tender, No Accessory Muscle Use, No Respiratory Distress , Crackles, Decreased Breath Sounds Cardiovascular: Regular Rate, Rhythm Capillary Refill: Less Than 3 Seconds Gastrointestinal: non tender, soft, other (Incision no signs of infection Steri -Strips present) Extremity: Normal Capillary Refill, Normal Inspection, Normal Range of Motion, Non Tender, No Calf Tenderness, No Pedal Edema Neurologic/Psychiatric: Alert, Oriented x3, No Motor/Sensory Deficits, Normal Mood/Affect Skin: Normal Color, Warm/Dry Lymphatic: No Adenopathy Results Lab Laboratory Tests 06/02/18 05:44 06/03/18 06:11 Assessment/Plan Assessment/Plan Pulmonary edema with bilateral R>L pleural effusions -- doubt pneumonia -No leukocytosis since admission -No fevers -Cultures are negative - CXR is clear and pt is on RA -Agree with Lasix 40mg daily 1/2 BC are positive - ? contamination -Currently on Vanco, zosyn -Will defer to hospitalist. CHF EF 25-30% NSTEMI CKD -Monitor MS changes Elevated LFTs -improving Change in mental status UDAY ALVARADO DO Jun 03, 2018 07:06
[2018-06-03 08:00] VITALS: BP 133/65
--- NOTE | 2018-06-03 08:21 | Cardiology Progress Note ---
Subjective Date Seen by Provider: Jun 03, 2018 Time Seen by Provider: 08:19 Subjective/Events-last exam Patient in bed, no new complaints. Reports fatigue this morning. Denies any chest pain or dyspnea. Focused Exam Lactate Level 05/31/18 11:44: Lactic Acid Level 2.37*H 05/31/18 13:13: Lactic Acid Level 2.56*H Objective-Cardiology Exam Last Set of Vital Signs Vital Signs 06/03/18 06/03/18 06/03/18 04:15 06:31 07:00 Temp 97.8 Pulse 79 Resp 18 B/P (MAP) 126/61 (82) Pulse Ox 98 O2 Delivery Room Air O2 Flow Rate 1.00 Capillary Refill : Less Than 3 Seconds I&O Intake and Output 06/03/18 00:00 Intake Total 4420 ml Output Total 2700 ml Balance 1720 ml Intake Oral 4420 ml Output Urine Total 2700 ml # Bowel Movements 5 General: Alert, Oriented X3, Cooperative HEENT: Atraumatic, PERRLA Neck: Supple, No JVD, No Thyromegaly Lungs: Other (diminished breath sounds bibasilarly) Heart: Regular Rate, Normal S1, Normal S2 Abdomen: Normal Bowel Sounds, No Tenderness Extremities: No Clubbing, No Cyanosis Skin: No Rashes, No Breakdown Neuro: Normal Gait, Cranial Nerves 3-12 NL Psych/Mental Status: Mental Status NL, Mood NL Results Lab Laboratory Tests 06/03/18 06:11 A/P-Cardiology Admission Diagnosis Change in mental status Severe sepsis Pneumonia Congestive heart failure Non-ST elevation myocardial infarction Assessment/Plan Status post change in mental status, confusion, improved. Continue to monitor Sepsis with pneumonia, bilateral pleural effusion, receiving antibiotics. Reporting improvement. Continue to monitor Congestive heart failure, acute on chronic left ventricular systolic dysfunction , ejection fraction has reduced, currently 25-30 percent. Continue on diuretics and monitor Elevated troponin level, non-ST elevation myocardial infarction, extensive history of coronary artery disease, started back on aspirin. Continue to monitor Patient has extensive history of coronary artery disease and severe mitral regurgitation, dilatation of the left ventricle and left atrium. Patient will need to have cardiac catheterization and possible consideration for mitral valve ring placement, discussed with her about referral as an outpatient to for evaluation Elevated liver enzymes, questionable passive hepatic congestion or acute hepatitis, patient was on Lipitor 80 mg which will be stopped at this point. Trending down. Continue to monitor liver enzymes closely . Coronary artery disease, history of CABG 4 using LALA to LAD, vein graft to OM , vein graft to the right PDA and vein graft to the diagonal artery. Last cardiac catheterization was done in September 2015 showed occluded vein graft to the diagonal artery and patent other bypasses, small vessel disease distally. Continue with conservative management at this time. Valvular heart disease with severe mitral regurgitation, moderate aortic valve stenosis, tricuspid TR. Planning to refer to [facility] as outpatient for further evaluation of mitral valve. History of chest pain, currently denies any chest pain, EKG did not show any acute changes. Continue to monitor. History of Cecal volvulus status post resection, patient recovered and discharged on May 18, 2018. History of syncope with hypotensive episode, continue to monitor blood pressure. Hypertension,controlled, continue to monitor. Mild bilateral carotid stenosis, followed by heart and vascular care last ultrasound was done in May 2016 reporting moderate disease on the right and mild disease on the left. Hyperlipidemia, discontinue Lipitor due to elevated liver enzymes, continue to monitor lipids as an outpatient Diabetes mellitus, followed and managed by primary care physician Hypothyroidism, followed and managed by primary care physician Chronic kidney disease stage III, monitor renal function Clinical Quality Measures DVT/VTE Risk/Contraindication: Risk Factor Score Per Nursin RFS Level Per Nursing on Admit: 3=High ESA LAZCANO Jun 03, 2018 08:21
[2018-06-03] MEDS: ASPIRIN E.C. 81 MG (ECOTRIN) TAB PO SCH (08:52)
[2018-06-03] MEDS: FUROSEMIDE 40 MG/4 ML INJ (LASIX) IVP SCH (08:52)
[2018-06-03] MEDS: meTOprolol TARTRATE 25 MG (LOPRESSOR) TABLET PO SCH ×2 (08:52→20:47)
--- NOTE | 2018-06-03 10:29 | Cardiology Progress Note ---
Subjective Date Seen by Provider: Jun 03, 2018 Time Seen by Provider: 08:00 Subjective/Events-last exam Patient is laying down in bed, feeling better today. No new complaint. Breathing is better Review of Systems General: No Chills, No Night Sweats, No Fatigue, No Malaise, No Appetite, No Other HEENT: No Head Aches, No Visual Changes, No Eye Pain, No Ear Pain, No Dysphasia , No Sinus Congestion, No Post Nasal Drip, No Sore Throat, No Other Pulmonary: Dyspnea; No Cough, No Pleuritic Chest Pain, No Other Cardiovascular: No: Chest Pain, Palpitations, Orthopnea, Paroxysmal Noc. Dyspnea, Edema, Lt Headedness, Other Focused Exam Lactate Level 05/31/18 11:44: Lactic Acid Level 2.37*H 05/31/18 13:13: Lactic Acid Level 2.56*H Objective-Cardiology Exam Last Set of Vital Signs Vital Signs 06/03/18 06/03/18 08:00 09:01 Temp 98.2 Pulse 84 Resp 20 B/P (MAP) 133/65 (87) Pulse Ox 96 O2 Delivery Room Air O2 Flow Rate 1.00 FiO2 21 Capillary Refill : Less Than 3 Seconds I&O Intake and Output 06/03/18 00:00 Intake Total 4420 ml Output Total 2700 ml Balance 1720 ml Intake Oral 4420 ml Output Urine Total 2700 ml # Bowel Movements 5 General: Alert, Oriented X3, Cooperative HEENT: Atraumatic, PERRLA Neck: Supple, No JVD, No Thyromegaly Lungs: Other (diminished breath sounds bibasilarly) Heart: Regular Rate, Normal S1, Normal S2 Abdomen: Normal Bowel Sounds, No Tenderness Extremities: No Clubbing, No Cyanosis Skin: No Rashes, No Breakdown Neuro: Normal Gait, Cranial Nerves 3-12 NL Psych/Mental Status: Mental Status NL, Mood NL Results Lab Laboratory Tests 06/03/18 06:11 A/P-Cardiology Admission Diagnosis Change in mental status Severe sepsis Pneumonia Congestive heart failure Non-ST elevation myocardial infarction Assessment/Plan Status post change in mental status, confusion, improved. Continue to monitor Sepsis with pneumonia, bilateral pleural effusion, better at this time. Continue to monitor managed by Dr. Smiley Congestive heart failure, acute on chronic left ventricular systolic dysfunction , ejection fraction has reduced, currently 25-30 percent. Continue on diuretics and monitor Elevated troponin level, non-ST elevation myocardial infarction, extensive history of coronary artery disease, started back on aspirin, discussed the management plan, I am referring her to for evaluation for her coronary artery disease and mitral valve disease, probably will have a cardiac catheterization at Patient has extensive history of coronary artery disease and severe mitral regurgitation, dilatation of the left ventricle and left atrium. Patient will need to have cardiac catheterization and possible consideration for mitral valve ring placement, discussed with her about referral as an outpatient to for evaluation Elevated liver enzymes, questionable passive hepatic congestion or acute hepatitis, patient was on Lipitor 80 mg which will be stopped at this point. Trending down. Continue to monitor liver enzymes closely . Coronary artery disease, history of CABG 4 using LALA to LAD, vein graft to OM , vein graft to the right PDA and vein graft to the diagonal artery. Last cardiac catheterization was done in September 2015 showed occluded vein graft to the diagonal artery and patent other bypasses, small vessel disease distally. Continue with conservative management at this time. Valvular heart disease with severe mitral regurgitation, moderate aortic valve stenosis, tricuspid TR. Planning to refer to as outpatient for further evaluation of mitral valve. History of chest pain, currently denies any chest pain, EKG did not show any acute changes. Continue to monitor. History of Cecal volvulus status post resection, patient recovered and discharged on May 18, 2018. History of syncope with hypotensive episode, continue to monitor blood pressure. Hypertension,controlled, continue to monitor. Mild bilateral carotid stenosis, followed by heart and vascular care last ultrasound was done in May 2016 reporting moderate disease on the right and mild disease on the left. Hyperlipidemia, discontinue Lipitor due to elevated liver enzymes, continue to monitor lipids as an outpatient Diabetes mellitus, followed and managed by primary care physician Hypothyroidism, followed and managed by primary care physician Chronic kidney disease stage III, monitor renal function Clinical Quality Measures DVT/VTE Risk/Contraindication: Risk Factor Score Per Nursin RFS Level Per Nursing on Admit: 3=High SUZETTE COCHRAN MD Jun 03, 2018 10:29
--- NOTE | 2018-06-03 13:14 | Progress Note-Hospitalist ---
Progress Note Progress Notes/Assess & Plan Date Seen 06/03/18 Time Seen by Provider: 13:11 Assessment & Plan The patient reports that that she feels better from the breathing standpoint. She is quite concerned that she has not had her mental health meds for several days and has taken them for a long time. These have been reconciled today by pharmacy and are now reordered. Physical exam: Lungs are clear to auscultation there is no tachypnea. CV is regular. She appears anxious. Ankles show no edema. Impression: Left lower lobe pneumonia. 2.elevated liver enzymes Plan: Restart home meds as noted above. Continue IV antibiotics. Mobilize. Focused Exam Lactate Level 05/31/18 13:13: Lactic Acid Level 2.56*H GIANCARLO METCALF MD Jun 03, 2018 13:13
[2018-06-03] MEDS: DULoxetine 30 MG (CYMBALTA) CAP PO SCH ×2 (13:18→20:47)
[2018-06-03] MEDS: GABAPENTIN 600 MG (NEURONTIN) TAB PO SCH ×2 (13:18→20:46)
[2018-06-03] MEDS ORDERED: LOPERAMIDE 2 MG (IMODIUM) CAP PO PRN (13:30)
[2018-06-03] MEDS: COLESTIPOL 1 GM (COLESTID) TAB PO SCH ×2 (13:47→20:47)
[2018-06-03 15:45] VITALS: BP 125/60
[2018-06-03] MEDS ORDERED: PATIENT MAY USE OWN MED,SINGLE MED PO SCH ×2 (17:15)
--- NOTE | 2018-06-03 18:43 | Progress Note ---
Subjective Date Seen by a Provider: Jun 03, 2018 Time Seen by a Provider: 10:37 Subjective/Events-last exam Patient's feeling better. She had bowel movement yesterday. She's had no abdominal pain. Patient feeling slightly depressed she thinks due to not taking her medications. She has no new complaints. She denies any nausea vomiting or sweats chills shortness of breath or chest pain. Liver enzymes trending down Objective Exam Vital Signs Date Time Temp Pulse Resp B/P (MAP) Pulse Ox O2 Delivery O2 Flow Rate FiO2 06/03/18 15:45 98.3 82 14 125/60 (81) 97 Room Air 06/03/18 14:30 95 Room Air 06/03/18 09:01 96 21 06/03/18 08:00 98.2 84 20 133/65 (87) 91 Room Air 06/03/18 08:00 96 Room Air 1.00 06/03/18 07:00 79 06/03/18 06:31 98 Room Air 06/03/18 04:15 97.8 78 18 126/61 (82) 99 Nasal Cannula 1.00 06/03/18 02:26 98 Nasal Cannula 1.00 06/03/18 01:00 74 06/02/18 23:20 98.4 79 18 116/57 (76) 98 Nasal Cannula 1.00 06/02/18 23:00 98 Nasal Cannula 1.00 06/02/18 20:39 77 117/54 (75) 06/02/18 20:05 98.2 76 20 104/52 (69) 98 Nasal Cannula 1.00 06/02/18 20:00 98 Nasal Cannula 1.50 06/02/18 19:00 70 I & O 06/03/18 07:00 Intake Total 2220 ml Output Total 2300 ml Balance -80 ml Capillary Refill : Less Than 3 Seconds General Appearance: No Apparent Distress HEENT: PERRL/EOMI, TMs Normal, Normal ENT Inspection Neck: Normal Inspection, Non Tender, Supple Respiratory: Chest Non Tender, No Accessory Muscle Use, No Respiratory Distress Cardiovascular: Regular Rate, Rhythm Gastrointestinal: non tender, soft, other (Incision no signs of infection Steri -Strips present) Extremity: Normal Capillary Refill, Normal Inspection, Normal Range of Motion, Non Tender, No Calf Tenderness, No Pedal Edema Neurologic/Psychiatric: Alert, Oriented x3, No Motor/Sensory Deficits, Normal Mood/Affect Skin: Normal Color, Warm/Dry Lymphatic: No Adenopathy Results Lab Laboratory Tests 06/03/18 06:11: White Blood Count 6.3, Red Blood Count 3.05L, Hemoglobin 9.9L, Hematocrit 31L, Mean Corpuscular Volume 101H, Mean Corpuscular Hemoglobin 33, Mean Corpuscular Hemoglobin Concent 32, Red Cell Distribution Width 14.2, Platelet Count 309, Mean Platelet Volume 9.8, Sodium Level 140, Potassium Level 3.4L, Chloride Level 99, Carbon Dioxide Level 29, Anion Gap 12, Blood Urea Nitrogen 11, Creatinine 1.39H, Estimat Glomerular Filtration Rate 37, BUN/Creatinine Ratio 8 , Glucose Level 90, Calcium Level 8.6, Corrected Calcium 9.5, Total Bilirubin 1.1H, Aspartate Amino Transf (AST/SGOT) 116H, Alanine Aminotransferase (ALT/SGPT ) 166H, Alkaline Phosphatase 115, Total Protein 5.4L, Albumin 2.9L Microbiology 05/31/18 Blood Culture - Preliminary, Resulted No growth Assessment/Plan Assessment/Plan Assessment/Plan Elevated liver enzymes trending down Status post cecal volvulus with right hemicolectomy Congestive heart failure Patient liver enzymes improving. She's not having any abdominal pain. Patient would better after large bowel movement yesterday. Patient with no surgical concerns at this time. We'll sign off at this time please call if needed. Clinical Quality Measures DVT/VTE Risk/Contraindication: Risk Factor Score Per Nursin RFS Level Per Nursing on Admit: 3=High ANGELITO WAN DO Jun 03, 2018 18:43
[2018-06-03] MEDS ORDERED: PANTOPRAZOLE 20 MG TABLET (PROTONIX) PO SCH (21:00)
[2018-06-03] MEDS ORDERED: BREXPIPRAZOLE 1 MG PO SCH (21:00)
[2018-06-03] MEDS ORDERED: LEVOTHYROXINE 88 MCG (LEVOTHORID) TAB PO SCH (21:00)
[2018-06-04] VITALS: BP 100/50
[2018-06-04] MEDS: PIPERACILLIN/TAZO 4.5 GM/NS 100 ML IV SCH ×4 (03:07→11:31)
--- NOTE | 2018-06-04 06:39 | Pulmonary Progress Note ---
Subjective Time Seen by a Provider: 06:38 Subjective/Events-last exam NO complications noted. Sepsis Event Evaluation Height, Weight, BMI Height: 5'3.00" Weight: 142lbs. 4.0oz. 64.057668gl; 25.2 BMI Method:Stated Exam Exam Vital Signs Date Time Temp Pulse Resp B/P (MAP) Pulse Ox O2 Delivery O2 Flow Rate FiO2 06/04/18 00:00 97.7 83 20 100/50 (67) 94 Room Air 06/03/18 20:30 Room Air 06/03/18 20:12 96 Room Air 06/03/18 15:45 98.3 82 14 125/60 (81) 97 Room Air 06/03/18 14:30 95 Room Air 06/03/18 09:01 96 21 06/03/18 08:00 98.2 84 20 133/65 (87) 91 Room Air 06/03/18 08:00 96 Room Air 1.00 06/03/18 07:00 79 I & O 06/04/18 07:00 Intake Total 1470 ml Output Total 2550 ml Balance -1080 ml Height & Weight Height: 5'3.00" Weight: 142lbs. 4.0oz. 64.231870mx; 25.2 BMI Method:Stated General Appearance: No Apparent Distress HEENT: PERRL/EOMI, TMs Normal, Normal ENT Inspection Neck: Normal Inspection, Non Tender, Supple Respiratory: Chest Non Tender, No Accessory Muscle Use, No Respiratory Distress Cardiovascular: Regular Rate, Rhythm Capillary Refill: Less Than 3 Seconds Gastrointestinal: non tender, soft, other (Incision no signs of infection Steri -Strips present) Extremity: Normal Capillary Refill, Normal Inspection, Normal Range of Motion, Non Tender, No Calf Tenderness, No Pedal Edema Neurologic/Psychiatric: Alert, Oriented x3, No Motor/Sensory Deficits, Normal Mood/Affect Skin: Normal Color, Warm/Dry Lymphatic: No Adenopathy Results Lab Laboratory Tests 06/03/18 06:11 Assessment/Plan Assessment/Plan Pulmonary edema with bilateral R>L pleural effusions -- doubt pneumonia -No leukocytosis since admission -No fevers -Cultures are negative - CXR is clear and pt is on RA -Agree with Lasix 40mg daily 1/2 BC are positive - ? contamination -Currently on zosyn -Will defer to hospitalist. CHF EF 25-30% NSTEMI CKD III -Monitor MS changes Elevated LFTs Change in mental status PT is on RA with Sp02 94%. CXR shows no acute process now. PT responded to lasix well. I am going to sign off please call with any questions. UDAY ALVARADO DO Jun 04, 2018 6:38 am
[2018-06-04] MEDS: RT-ALBUTEROL/IPRATROPIUM 3 ML (DUONEB) VIAL INH SCH ×2 (07:13→15:25)
[2018-06-04 08:00] VITALS: BP 117/71
--- NOTE | 2018-06-04 08:07 | Cardiology Progress Note ---
Subjective Date Seen by Provider: Jun 04, 2018 Time Seen by Provider: 07:58 Subjective/Events-last exam Patient is in bed, feeling better, no shortness of breath or swelling, borderline hypotensive Review of Systems General: No Chills, No Night Sweats, No Fatigue, No Malaise, No Appetite, No Other HEENT: No Head Aches, No Visual Changes, No Eye Pain, No Ear Pain, No Dysphasia , No Sinus Congestion, No Post Nasal Drip, No Sore Throat, No Other Pulmonary: No Dyspnea, No Cough, No Pleuritic Chest Pain, No Other Cardiovascular: No: Chest Pain, Palpitations, Orthopnea, Paroxysmal Noc. Dyspnea, Edema, Lt Headedness, Other Objective-Cardiology Exam Last Set of Vital Signs Vital Signs 06/03/18 06/03/18 06/04/18 06/04/18 08:00 09:01 00:00 07:13 Temp 97.7 Pulse 83 Resp 20 B/P (MAP) 100/50 (67) Pulse Ox 93 O2 Delivery Room Air O2 Flow Rate 1.00 FiO2 21 Capillary Refill : Less Than 3 Seconds I&O Intake and Output 06/04/18 00:00 Intake Total 1770 ml Output Total 3000 ml Balance -1230 ml Intake Oral 1470 ml IV Total 300 ml Output Urine Total 3000 ml # Bowel Movements 1 General: Alert, Oriented X3, Cooperative HEENT: Atraumatic, PERRLA Neck: Supple, No JVD, No Thyromegaly Lungs: Clear to Auscultation, Normal Air Movement Heart: Regular Rate, Normal S1, Normal S2, Other (SM @ LSB) Abdomen: Normal Bowel Sounds, No Tenderness Extremities: No Clubbing, No Cyanosis Skin: No Rashes, No Breakdown Neuro: Normal Gait, Cranial Nerves 3-12 NL Psych/Mental Status: Mental Status NL, Mood NL A/P-Cardiology Admission Diagnosis Change in mental status Severe sepsis Pneumonia Congestive heart failure Non-ST elevation myocardial infarction Assessment/Plan Status post change in mental status, confusion, improved. Continue to monitor Sepsis with questionable pneumonia, bilateral pleural effusion, better at this time. Continue to monitor managed by Dr. Shah Congestive heart failure, acute on chronic left ventricular systolic dysfunction , ejection fraction has reduced, currently 25-30 percent. Responded well to diuretics, I am changing Lasix to oral today Borderline hypotension, cannot tolerate a higher dose of BB, cannot tolerate ACEI or ARB due to hypotension Elevated troponin level, non-ST elevation myocardial infarction, extensive history of coronary artery disease, started back on aspirin, discussed the management plan, I am referring her to for evaluation for her coronary artery disease and mitral valve disease, probably will have a cardiac catheterization at Patient has extensive history of coronary artery disease and severe mitral regurgitation, dilatation of the left ventricle and left atrium. Patient will need to have cardiac catheterization and possible consideration for mitral valve ring placement, discussed with her about referral as an outpatient to for evaluation Elevated liver enzymes, questionable passive hepatic congestion or acute hepatitis, patient was on Lipitor 80 mg which will be stopped at this point. Trending down. Continue to monitor liver enzymes closely . Coronary artery disease, history of CABG 4 using LALA to LAD, vein graft to OM , vein graft to the right PDA and vein graft to the diagonal artery. Last cardiac catheterization was done in September 2015 showed occluded vein graft to the diagonal artery and patent other bypasses, small vessel disease distally. Continue with conservative management at this time. Valvular heart disease with severe mitral regurgitation, moderate aortic valve stenosis, tricuspid TR. Planning to refer to as outpatient for further evaluation of mitral valve. History of chest pain, currently denies any chest pain, EKG did not show any acute changes. Continue to monitor. History of Cecal volvulus status post resection, patient recovered and discharged on May 18, 2018. History of syncope with hypotensive episode, continue to monitor blood pressure. Hypertension,controlled, continue to monitor. Mild bilateral carotid stenosis, followed by heart and vascular care last ultrasound was done in May 2016 reporting moderate disease on the right and mild disease on the left. Hyperlipidemia, discontinue Lipitor due to elevated liver enzymes, continue to monitor lipids as an outpatient Diabetes mellitus, followed and managed by primary care physician Hypothyroidism, followed and managed by primary care physician Chronic kidney disease stage III, monitor renal function OK for discharge from cardiology standpoint, appointment with Dr Engel in , appointment with Dr Waters in 2 weeks Clinical Quality Measures DVT/VTE Risk/Contraindication: Risk Factor Score Per Nursin RFS Level Per Nursing on Admit: 3=High SUZETTE WATERS MD Jun 04, 2018 08:07
[2018-06-04] MEDS: meTOprolol TARTRATE 25 MG (LOPRESSOR) TABLET PO SCH (08:56)
[2018-06-04] MEDS: ASPIRIN E.C. 81 MG (ECOTRIN) TAB PO SCH (08:56)
[2018-06-04] MEDS: COLESTIPOL 1 GM (COLESTID) TAB PO SCH (08:56)
[2018-06-04] MEDS: DULoxetine 30 MG (CYMBALTA) CAP PO SCH (08:56)
[2018-06-04] MEDS ORDERED: FUROSEMIDE 40 MG (LASIX) TAB PO SCH (09:00)
[2018-06-04] MEDS: GABAPENTIN 600 MG (NEURONTIN) TAB PO SCH (09:00)
[2018-06-04] MEDS ORDERED: ASPI-983 PO ×2 (10:48)
[2018-06-04] MEDS ORDERED: FURO40TA4 PO ×2 (10:57)
[2018-06-04] MEDS ORDERED: POTA10CA43 PO ×2 (10:57)
--- NOTE | 2018-06-04 10:57 | Discharge Summary-Hospitalist ---
THEA BECERRA DO 06/04/18 1057: Diagnosis/Chief Complaint Date of Admission May 31, 2018 at 12:55 Date of Discharge Discharge Date: Jun 04, 2018 Admission Diagnosis Severe Sepsis Discharge Diagnosis (1) Severe sepsis Status: Resolved Assessment & Plan: Hypothermia with leukocytosis noted Lactic elevated no hypotension so no need for 30cc/kg bolus vanc and Zosyn ordered for HCAP coverage Cultures done in ER- await results (2) LLL pneumonia Status: Acute Assessment & Plan: with effusion Pulm consulted appreciate recs (3) CHF (congestive heart failure) Status: Acute Assessment & Plan: Continue lasix Echo ordered Consult Cardiology (4) Thickening of wall of gallbladder with pericholecystic fluid Status: Acute Assessment & Plan: May be due to congestion Surgery consulted appreciate recs (5) Elevated LFTs Status: Acute Assessment & Plan: Likely due to congestion Will trend Tylenol level <10 (6) CKD (chronic kidney disease) stage 3, GFR 30-59 ml/min Status: Acute Assessment & Plan: Acute on CKD Creatinine improved slightly today but not yet to baseline Trend (7) Essential (primary) hypertension Status: Chronic Assessment & Plan: Well controlled currently Trend (8) CAD (coronary artery disease) Status: Chronic Assessment & Plan: Extensive heart history Dr Waters consulted, appreciate recs Echo ordered Troponin ordered Discharge Summary Discharge Physical Exam Allergies: Coded Allergies: codeine (Verified Allergy, Unknown, 05/13/18) nausea/faints olanzapine (Verified Allergy, Unknown, 08/03/08) cefadroxil (Verified Adverse Reaction, Mild, MAKES HER DIZZY AND FAINTS, 05/15/18) faints Vitals & I&Os Vital Signs Date Time Temp Pulse Resp B/P (MAP) Pulse Ox O2 Delivery O2 Flow Rate FiO2 06/04/18 15:26 79 20 117/71 93 Room Air 1.00 06/04/18 08:00 97.3 06/03/18 09:01 21 General Appearance: No Apparent Distress, WD/WN, Chronically ill Respiratory: Chest Non Tender, Lungs Clear, Normal Breath Sounds, No Accessory Muscle Use, No Respiratory Distress Cardiovascular: Regular Rate, Rhythm, No Edema, No Gallop, No JVD, No Murmur, Normal Peripheral Pulses Neurologic/Psychiatric: Alert, Oriented x3, No Motor/Sensory Deficits, Normal Mood/Affect Hospital Course Patient was admitted for severe sepsis and pneumonia with cholecystitis. Empiric antibiotics were initiated with good results along with aggressive IVF in ICU. Choly was performed in a an uncomplicated manner and she was maintained on Vanc for BCx + and changed to Ampicillin on 06/04/18 once cultures were completed. She was in need of further strengthening and will evaluate the patient for swing bed or return to [facility] but IV abx will be maintained. Labs (last 24 hrs) Microbiology 05/31/18 Blood Culture - Preliminary, Resulted No growth Patient resulted labs reviewed. Imaging: Reviewed Imaging Films, Reviewed Imaging Report Discussion & Recommendations Discharge Planning: <30 minutes discharge planning Discharge Home Medications: Active Scripts Active Potassium Chloride 10 Meq Capsule.er 10 Meq PO DAILY Furosemide 40 Mg Tablet 40 Mg PO DAILY Aspirin EC (Aspirin) 81 Mg Tablet.dr 81 Mg PO DAILY Reported Mucus Relief (Guaifenesin) 400 Mg Tablet 400 Mg PO Q4H PRN Loperamide (Loperamide HCl) 2 Mg Tablet 2 Mg PO UD PRN B-12 (Cyanocobalamin (Vitamin B-12)) 1,000 Mcg Tablet 1,000 Mcg PO HS Vitamin D3 (Cholecalciferol (Vitamin D3)) 5,000 Unit Capsule 5,000 Unit PO HS Duloxetine HCl 60 Mg Capsule.dr 60 Mg PO BID [place]-3 Acid Ethyl Esters 1 Gm Capsule 2 Gm PO BID TAKES 2 (1GM) CAPSULES Gabapentin 600 Mg Tablet 600 Mg PO BID Omeprazole 20 Mg Capsule.dr 20 Mg PO HS Metoprolol Tartrate 25 Mg Tablet 25 Mg PO BID Rexulti (Brexpiprazole) 1 Mg Tablet 1 Mg PO HS Atorvastatin Calcium 80 Mg Tablet 80 Mg PO HS Levothyroxine Sodium 88 Mcg Tablet 88 Mcg PO HS Colestipol HCl 1 Gm Tablet 1 Gm PO BID Niaspan (Niacin) 1,000 Mg Tab.er.24h 1,000 Mg PO HS [facility] Heart Tab (Mv,Ca,Iron,Min/FA/Phytosterol) 1 Each Tablet 1 Tab PO HS Instructions to patient/family Please see electronic discharge instructions given to patient. Clinical Quality Measures DVT/VTE Risk/Contraindication: Risk Factor Score Per Nursin RFS Level Per Nursing on Admit: 3=High BRIANNE ZACARIAS MED STUDENT 06/04/18 1217: Discharge Summary Discharge Physical Exam Allergies: Coded Allergies: codeine (Verified Allergy, Unknown, 05/13/18) nausea/faints olanzapine (Verified Allergy, Unknown, 08/03/08) cefadroxil (Verified Adverse Reaction, Mild, MAKES HER DIZZY AND FAINTS, 05/15/18) faints Hospital Course The patient is a 72 y/o female who presented to the ER for pain, confusion, and weakness. 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 She was prescribed pain medications and her reports that she began to become confused. He discontinued her medications a couple of days previous and she still became more confused and unaware so he brought her to the ER for anxiety. She was given Xanax, Lasix and tramadol which did not improve her pain or confusion. She continued to become more confused and was brought back to the ER on the 31 of May. She was found to have moderate plural effusions with pneumonia, transaminitis, and a thickened gallbladder. She was admitted for severe sepsis and pneumonia. She was started on Vancomycin and Zosyn while cultures were sent. She continued to improve over the next several days and will be discharged today. Problem Qualifiers (1) LLL pneumonia: Pneumonia type: due to unspecified organism Qualified Codes: J18.1 - Lobar pneumonia, unspecified organism (2) CHF (congestive heart failure): Heart failure type: systolic Heart failure chronicity: acute on chronic Qualified Codes: I50.23 - Acute on chronic systolic (congestive) heart failure (3) CAD (coronary artery disease): Coronary Disease-Associated Artery/Lesion type: bypass graft [place] vs. transplanted heart: [place] heart Associated angina: without angina Qualified Codes: I25.810 - Atherosclerosis of coronary artery bypass graft(s) without angina pectoris THEA BECRERA DO Jun 04, 2018 10:57 BRIANNE ZACARIAS MED STUDENT Jun 04, 2018 12:17
[2018-06-04 15:26] VITALS: BP 117/71
== END 2018-06-04 17:30 | disposition home or self-care (01) | DRG 871 ==
LOC: EDUNIT# 10:53 → ER 10:54 → 4TH 12:55
PROVIDERS: ADMIT Family Medicine; ATTEND Family Medicine
DX: A41.9 Sepsis, unspecified organism (principal); R65.20 Severe sepsis without septic shock; J18.1 Lobar pneumonia, unspecified organism; I21.4 Non-ST elevation (NSTEMI) myocardial infarction; I13.0 Hypertensive heart and chronic kidney disease with heart failure and stage 1 through stage 4 chronic kidney disease, or unspecified chronic kidney disease; I50.23 Acute on chronic systolic (congestive) heart failure; N18.3 Chronic kidney disease, stage 3 (moderate); I25.810 Atherosclerosis of coronary artery bypass graft(s) without angina pectoris; J90 Pleural effusion, not elsewhere classified; K82.9 Disease of gallbladder, unspecified; R79.89 Other specified abnormal findings of blood chemistry; K76.1 Chronic passive congestion of liver; B17.9 Acute viral hepatitis, unspecified; I08.0 Rheumatic disorders of both mitral and aortic valves; I65.23 Occlusion and stenosis of bilateral carotid arteries; E78.00 Pure hypercholesterolemia, unspecified; E03.9 Hypothyroidism, unspecified; E11.9 Type 2 diabetes mellitus without complications; Z95.1 Presence of aortocoronary bypass graft; G47.30 Sleep apnea, unspecified; M19.91 Primary osteoarthritis, unspecified site; M79.7 Fibromyalgia; K58.9 Irritable bowel syndrome, unspecified; K57.90 Diverticulosis of intestine, part unspecified, without perforation or abscess without bleeding; F41.9 Anxiety disorder, unspecified; F32.9 Major depressive disorder, single episode, unspecified
CPT/HCPCS: 36415; 71045; 71250; 74176; 76705; 80053; 80202; 80329; 81000; 82140; 82962; 83605; 83690; 83880; 84484; 85025; 85027; 85610; 87040; 87077; 87181; 87184; 93306; 94640; 94664; 94760; 96361; 96365; 96375

== ENCOUNTER 2018-06-06 16:53 | Emergency (ER) | payer MEDICARE, OTHER ==
[~2018-06-06] VITALS: Ht 162.6 cm; Wt 52.2 kg
[~2018-06-06 16:53] MED LIST changes: +ASPI-983 PO; +FURO40TA4 PO; +POTA10CA43 PO
[2018-06-06] MEDS ORDERED: SULF1TAB35 PO (17:22)
--- NOTE | 2018-06-06 17:23 | ED Integumentary General ---
General Chief Complaint: Wound Check (No Charge) Stated Complaint: POST OP/INCISION OOZING Nursing Triage Note: THE PT IS AMBULATORY TO THE ROOM WITH ASSISTANCE OF A WALKER. NO DISTRESS IS SEEN ON ARRIVAL. LOC IS NORMAL FOR THE PT. Source: patient Exam Limitations: no limitations History of Present Illness Date Seen by Provider: Jun 06, 2018 Time Seen by Provider: 17:19 Initial Comments To ER with complaints of her abdominal incision oozing since earlier today. No fevers or chills. She was seen here for a cecal volvulus a few weeks ago and had open laparotomy for this. The most superior aspect of this incision has some clear honey-colored incision and drainage from it. No fevers or chills. No shortness of breath. No chest pain. No abdominal pain. Normal bowel movements. Timing/Duration: this morning Severity: moderate Location: torso Allergies and Home Medications Allergies Coded Allergies: codeine (Verified Allergy, Unknown, 05/13/18) nausea/faints olanzapine (Verified Allergy, Unknown, 08/03/08) cefadroxil (Verified Adverse Reaction, Mild, MAKES HER DIZZY AND FAINTS, 05/15/18) faints Home Medications Aspirin 81 Mg Tablet.dr, 81 MG PO DAILY Prescribed by: THEA BECERRA on 06/04/18 1048 Atorvastatin Calcium 80 Mg Tablet, 80 MG PO HS, (Reported) Brexpiprazole 1 Mg Tablet, 1 MG PO HS, (Reported) Cholecalciferol (Vitamin D3) 5,000 Unit Capsule, 5,000 UNIT PO HS, (Reported) Colestipol HCl 1 Gm Tablet, 1 GM PO BID, (Reported) Cyanocobalamin (Vitamin B-12) 1,000 Mcg Tablet, 1,000 MCG PO HS, (Reported) Duloxetine HCl 60 Mg Capsule.dr, 60 MG PO BID, (Reported) Furosemide 40 Mg Tablet, 40 MG PO DAILY Prescribed by: THEA BECERRA on 06/04/18 1057 Gabapentin 600 Mg Tablet, 600 MG PO BID, (Reported) Guaifenesin 400 Mg Tablet, 400 MG PO Q4H PRN for CONGESTION, (Reported) Levothyroxine Sodium 88 Mcg Tablet, 88 MCG PO HS, (Reported) Loperamide HCl 2 Mg Tablet, 2 MG PO UD PRN for DIARRHEA, (Reported) Metoprolol Tartrate 25 Mg Tablet, 25 MG PO BID, (Reported) Mv,Ca,Iron,Min/FA/Phytosterol 1 Each Tablet, 1 TAB PO HS, (Reported) Niacin 1,000 Mg Tab.er.24h, 1,000 MG PO HS, (Reported) [place]-3 Acid Ethyl Esters 1 Gm Capsule, 2 GM PO BID, (Reported) TAKES 2 (1GM) CAPSULES Omeprazole 20 Mg Capsule.dr, 20 MG PO HS, (Reported) Potassium Chloride 10 Meq Capsule.er, 10 MEQ PO DAILY Prescribed by: THEA BECERRA on 06/04/18 1057 Patient Home Medication List Home Medication List Reviewed: Yes Review of Systems Review of Systems Constitutional: see HPI; No chills EENTM: see HPI Respiratory: no symptoms reported Cardiovascular: no symptoms reported Genitourinary: no symptoms reported Musculoskeletal: no symptoms reported Skin: no symptoms reported Psychiatric/Neurological: No Symptoms Reported Endocrine: No Symptoms Reported Past Wtmgjel-Iecrsm-Mdqkzx Hx Patient Social History Alcohol Use: Denies Use Recreational Drug Use: No 2nd Hand Smoke Exposure: No Recent Foreign Travel: No Contact w/Someone Who Travel: No Recent Hopitalizations: Yes Immunizations Up To Date Date of Pneumonia Vaccine: Mar 31, 2013 Date of Influenza Vaccine: May 15, 2018 Seasonal Allergies Seasonal Allergies: No Past Medical History Surgeries: Yes (Hiatal Hernia, Breast BX, Bladder surgery x 3 (had mesh sling, tie up, ) Abdominal, Bladder Surgery, CABG, Hysterectomy Respiratory: Yes Sleep Apnea Currently Using CPAP: Yes (SLEEP APNEA) Currently Using BIPAP: No Cardiac: Yes Coronary Artery Disease, High Cholesterol, Hypertension Neurological: No 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 Disorders: 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 Genitourinary: Yes Bladder Infection, Renal Failure, UTI-Chronic Gastrointestinal: Yes Diverticulosis, Irritable Bowel Musculoskeletal: Yes Arthritis, Fibromyalgia Endocrine: Yes Hypothyroidsim HEENT: Yes Cataract Loss of Vision: Denies Cancer: No Psychosocial: Yes Anxiety, Depression Integumentary: No Blood Disorders: No Family Medical History Alzheimer's disease (mother) Cardiovascular disease (mother and father) Carotid artery stenosis (father) Hypercholesterolemia (mother and father) Hypertension Myocardial infarction (mother and father) No Pertinent Family Hx Physical Exam Vital Signs Vital Signs - First Documented 06/06/18 17:05 Pulse 72 Resp 18 B/P (MAP) 122/70 Pulse Ox 100 Capillary Refill : General Appearance: WD/WN, no apparent distress HEENT: PERRL/EOMI, normal ENT inspection Neck: non-tender, full range of motion Respiratory: normal breath sounds, no respiratory distress, no accessory muscle use Gastrointestinal: normal bowel sounds, non tender Neurologic/Psychiatric: alert, normal mood/affect, oriented x 3 Skin: normal color, warm/dry Skin Problem Location: other (midline abdominal incision. The most superior aspect of this has about a 1 cm segment with partial dehiscence. Minimal amount of serous drainage. Culture of this was collected. There is about 1 cm erythema surrounding this area of dehiscence. This was covered with gauze.) Progress/Results/Core Measures Results/Orders My Orders Orders - ANKITA STOVALL APRN Wound Culture (06/06/18 17:11) Vital Signs/I&O 06/06/18 17:05 Pulse 72 Resp 18 B/P (MAP) 122/70 Pulse Ox 100 Departure Impression Primary Impression: Postoperative wound dehiscence Qualified Codes: T81.31XA - Disruption of external operation (surgical) wound , not elsewhere classified, initial encounter Disposition: 01 HOME, SELF-CARE Condition: Stable Departure-Patient Inst. Decision time for Depature: 17:22 Referrals: ETHEL MG DO (PCP/Family) Primary Care Physician Patient Instructions: Wound Care (DC) Add. Discharge Instructions: 1. This should heal over the course of the next 1-2 weeks. Keep this covered with gauze to collect any drainage that may occur. Antibiotics as directed. Follow-up with her surgeon as scheduled. All discharge instructions reviewed with patient and/or family. Voiced understanding. Scripts Sulfamethoxazole/Trimethoprim (Bactrim Ds Tablet) 1 Each Tablet 1 EACH PO BID, #10 TAB Prov: ANKITA STOVALL APRN 06/06/18 ANKITA STOVALL APRN Jun 06, 2018 17:22
[2018-06-06 17:24] VITALS: BP 122/70
== END 2018-06-06 17:30 | disposition home or self-care (01) ==
LOC: EDUNIT# 16:53 → ER 16:54
DX: T81.31XA Disruption of external operation (surgical) wound, not elsewhere classified, initial encounter (principal); G47.30 Sleep apnea, unspecified; I25.10 Atherosclerotic heart disease of native coronary artery without angina pectoris; E78.00 Pure hypercholesterolemia, unspecified; I10 Essential (primary) hypertension; E03.9 Hypothyroidism, unspecified; F41.9 Anxiety disorder, unspecified; F32.9 Major depressive disorder, single episode, unspecified; Z87.440 Personal history of urinary (tract) infections; Z82.49 Family history of ischemic heart disease and other diseases of the circulatory system; Z88.5 Allergy status to narcotic agent; Z88.8 Allergy status to other drugs, medicaments and biological substances; Z98.890 Other specified postprocedural states; Z79.82 Long term (current) use of aspirin; Z87.19 Personal history of other diseases of the digestive system; Z95.1 Presence of aortocoronary bypass graft; Z90.710 Acquired absence of both cervix and uterus
CPT/HCPCS: 87070; 87205; 99282

== ENCOUNTER 2018-07-19 19:59 | Outpatient (CLI) | payer MEDICARE, OTHER ==
[~2018-07-19 19:59] MED LIST changes: +SULF1TAB35 PO
== END 2018-07-20 06:15 | disposition home or self-care (01) ==
LOC: SLEEP 19:59
PROVIDERS: ATTEND Nurse Practitioner Family
DX: G47.33 Obstructive sleep apnea (adult) (pediatric) (principal); G47.10 Hypersomnia, unspecified; G47.61 Periodic limb movement disorder; I48.91 Unspecified atrial fibrillation
CPT/HCPCS: 95810

== ENCOUNTER → 2018-08-27 | Outpatient (CLI) | payer MEDICARE, OTHER ==
[~2018-08-27] VITALS: Ht 162.6 cm; Wt 62.6 kg
[~2018-08-27] MED LIST changes: +CATHETER FLUSH 10 ML SYR IV PRN; -GABA600T2 PO; +GBPN600T PO; +REGADENOSON 0.4 MG/5 ML SYR (LEXISCAN) IV ONE
[2018-08-27 09:17] VITALS: BP 141/61
[2018-08-27 09:19] VITALS: BP 130/63
--- NOTE | 2018-08-27 14:12 | STRESS TEST ---
DATE OF SERVICE: 08/27/2018 LEXISCAN MYOVIEW STRESS TEST REPORT REFERRING PHYSICIAN: Dr. Grove. Baseline heart rate is 64, baseline blood pressure 141/64. Baseline EKG is sinus rhythm with right bundle branch block. In summary, the patient was injected with 10.48 mCi of technetium-99 Myoview and the resting images were obtained. Then, the patient received 0.4 mg of Lexiscan followed by 29.4 mCi of technetium-99 Myoview. Throughout the test, there were no EKG changes. The resting and stress images were reviewed and compared in the short axis, horizontal long axis, and vertical long axis views. Review of the images showed reversible ischemia involving the whole anterior wall and anterolateral wall and anterior septum. SSS is 19. SDS is 16. TID value 1.04. On the gated images, the left ventricle appeared to be dilated with diffuse left ventricular hypokinesia, calculated ejection fraction of 25%. CONCLUSION: 1. The patient tolerated Lexiscan well. 2. Reversible ischemia involving the whole anterior wall, anterolateral and anterior septum. 3. Dilated left ventricle with diffuse left ventricular hypokinesia, calculated ejection fraction of 25%. Job ID: [id number] DocumentID: [id number] Dictated Date: 08/27/2018 13:59:12 [employer] Pul[employer] Equipment Operator Date: 08/27/2018 14:11:51 Dictated By: SUZETTE COCHRAN MD
== END ==
LOC: CARD 07:20
PROVIDERS: ATTEND Internal Medicine Cardiovascular Disease
DX: I25.10 Atherosclerotic heart disease of native coronary artery without angina pectoris (principal); I11.0 Hypertensive heart disease with heart failure; I50.9 Heart failure, unspecified; E78.5 Hyperlipidemia, unspecified
CPT/HCPCS: 78452; 93017

== ENCOUNTER 2018-09-10 06:36 | Day surgery (SDC) | payer MEDICARE, OTHER ==
[~2018-09-10] VITALS: Ht 162.6 cm; Wt 62.6 kg
[2018-09-10] VITALS (11 sets, daily range): BP systolic 99–140; BP diastolic 53–82
[~2018-09-10 06:36] MED LIST changes: -CATHETER FLUSH 10 ML SYR IV PRN; -REGADENOSON 0.4 MG/5 ML SYR (LEXISCAN) IV ONE
--- OUTSIDE RECORDS SUMMARY | 2018-09-10 06:39 | XMS REPORT ---
Author Author TATI MILLARD Organization [facility] Address [address] [place] [address] Care Team Providers [employer] Inspector Name Role Phone TATI MILLARD Unavailable PROBLEMS Type Condition ICD9-CM Code [id number] Code Onset Dates Condition Status SNOMED Code Problem Major depressive disorder, recurrent episode, in partial or unspecified remission 296.35 Active 33513028 Problem Panic disorder without agoraphobia 300.01 Active 66229726 ALLERGIES Substance Reaction Event Type Date Status Codeine Sulfate hives Drug Allergy May, Active Cefadroxil Fainting Drug Allergy May, Active ENCOUNTERS Encounter Location Date Diagnosis [place] [id number] [place] [address]292- 7021 Jun, [place] [address] [place] [id number] [place] [address] 10124- 3568 May, Major depressive disorder, recurrent episode, in partial remission F33.41 and 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.1 [place] [address], [place] [address] Feb, Major depressive disorder, recurrent episode, in partial remission F33.41 [facility] [id number] [address] Jan, Major depressive disorder, recurrent episode, in partial remission F33.41 [facility] [address] [place] [address] 56914- 9068 Jan, Major depressive disorder, recurrent episode, in partial remission F33.41 and 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.1 [place] [address], [place] [address] Jan, [place] [address] [place] [id number] [address] Dec, Major depressive disorder, recurrent episode, in partial remission F33.41 [facility] [id number] [place] [address] 51381- 6926 Dec, Major depressive disorder, recurrent episode, in partial remission F33.41 [facility] [address] [place] [address] Oct, Major depressive disorder, recurrent episode, in partial remission F33.41 and 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.1 [facility] [address] [place] [address] 20472- 0205 Jun, Major depressive disorder, recurrent episode, in partial remission F33.41 and 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.1 [place] [address], [place] [address] 9042 Feb, 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.1 [place] [address] [place] [id number] [place] [address] 01658- 5238 Jan, 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.1 [facility] [address] [place] [address] 60329- 6887 Jan, Major depressive disorder, recurrent episode, in partial remission F33.41 ; 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.1 and Other retirement ( current) drug therapy Z79.899 [facility] [address], [place] [address] 95[address] Dec, [facility] [address], [place] [address] 07[address] Dec, [facility] [address], [place] [address] 8905 Dec, Major depressive disorder, recurrent episode, in partial remission F33.41 [facility] [address] [address] 5[address] November, [facility] [id number] [place] [address] 46676- 6195 November, Major depressive disorder, recurrent episode, in partial remission F33.41 and 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.1 [facility] [id number] [place] [address] 56306- 8608 Oct, Major depressive disorder, recurrent episode, in partial remission F33.41 and 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.1 [facility] [id number] [place] [address] 19867- 8527 Jul, [facility] [id number] [place] [address] 14810- 6971 Jul, [facility] [address] [place] [address] [id number] [place] [address] 43057- 6085 Jul, Major depressive disorder, recurrent episode, in partial remission F33.41 ; 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.1 and 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 [facility] [address] [place] [id number] [place] [address] 43468- 3768 Jun, [facility] [address] [place] [id number] [place] [address] 60853- 4100 Apr, Major depression, recurrent 296.30 and Anxiety disorder, unspecified F41.9 [facility] [address], [place] [address]- 8168 Feb, [facility] [id number] [address]- 7651 Jan, [facility] [id number] [place] [address] 84463- 3280 Dec, Major depressive disorder, recurrent, in partial remission F33.41 and Anxiety disorder, unspecified F41.9 [facility] [id number] [address]- 5068 Dec, [facility] [address] [place] [id number] [place] [address] 22277- 1833 November, [facility] [id number] [place] [address] 61931- 2546 November, [facility] [address], [place] [address]- 7690 Oct, [facility] [address], [place] [address]- 8746 Aug, [facility] [address], [place] [address]- 4471 Jul, [facility] [address] [id number] [place] [address] 28906- 4707 Jul, 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.1 ; Major depressive disorder, recurrent, moderate F33.1 and Anxiety disorder, unspecified F41.9 [facility] [address] [place] [address] 24960- 9885 Jun, [facility] [address] [place] [address] 92132- 4986 May, [facility] [address] [place] [address] 41544- 3656 May, [facility] [address] [place] [address] 641458- 6442 Mar, [facility] [address] [address] [address] Feb, Major depression, recurrent 296.30 ; Chronic post-traumatic stress disorder (PTSD) 309.81 ; Anxiety 300.00 ; No condition on [place] II V71.09 and No condition on axis III V71.09 [facility] [address] [address] 9715 Jan, Major depression 296.20 ; 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 300.02 ; 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 ; No condition on [place] II V71.09 and No condition on axis III V71.09 [facility] [id number] [address] [address] 15 Dec, 2014 Depression, major, recurrent, moderate 296.32 ; 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 300.02 and [place] II diagnosis deferred 799.9 [facility] [address], [place] [address]- 1219 02 Dec, 2014 Major depressive disorder, recurrent episode, in partial or unspecified remission 296.35 and Panic disorder without agoraphobia 300.01 [facility] [address] [facility] [id number] [address] 0572 14 Oct, 2014 [facility] [id number] [place] [address] 71895- 4360 Oct, [facility] [id number] [address]- 6119 Mar, [facility] [id number] [place] [address] 53555- 3293 Feb, [facility] [id number] [address]- 8807 Feb, [facility] [id number] [place] [address] 43829- 8308 Feb, [facility] [address], [place] [address]- 1654 Feb, [facility] [address], [place] [address]- 2368 Feb, [facility] [address], [place] [address]- 8965 Feb, [facility] [address], [place] [address]- 7674 November, [facility] [id number] [address]- 2776 November, [facility] [id number] [address]- 6415 November, [facility] [id number] [address]- 3983 November, [facility] [id number] [place] [address] 33389- 2546 November, [facility] [place] [facility] [address] [id number] [place] [address] November, [facility] [place] [facility] [address] [id number] [place] [address]- 7739 Oct, [facility] [place] [facility] [address] [id number] [place] [address]- 3139 Oct, [facility] [place] [facility] [address] [id number] [place] [address]- 3419 Sep, [facility] [place] [facility] [address] [id number] [place] [address]- 3204 Sep, [facility] [place] [facility] [address] [id number] [place] [address]- 6990 Sep, [facility] [place] [facility] [address] [id number] [place] [address]- 9455 Sep, [facility] [place] [facility] [address] [id number] [place] [address]- 6958 Sep, [facility] [place] [facility] [address] [id number] [place] [address]- 1999 Sep, [facility] [place] [facility] [address] [id number] [place] [address]- 0205 Aug, [facility] [place] [facility] [address] [id number] [place] [address]- 0336 Aug, [facility] [place] [facility] [address] [id number] [place] [address]- 3784 Aug, [facility] [place] [facility] [address] [id number] [place] [address]- 9374 Aug, [facility] [place] [facility] [address] [id number] [place] [address]- 2718 Jul, [facility] [place] [facility] [address] [id number] [place] [address]- 8372 Jul, [facility] [place] [facility] [address] [id number] [place] [address]- 2006 Jul, [facility] [place] [facility] [address] [id number] [place] [address]- 8084 Jul, [facility] [place] [facility] [address] [id number] [place] [address]- 4996 Jul, [facility] [place] [facility] [address] [id number] [place] [address]- 2366 Jul, [facility] [place] [facility] [address] [id number] [place] [address]- 4696 Jun, [facility] [place] [facility] [address] [id number] [place] [address]- 7160 Jun, [facility] [place] [facility] [address] [id number] [place] [address]- 0479 Jun, [facility] [place] [facility] [address] [id number] [place] [address]- 5262 Jun, [facility] [place] [facility] [address] [id number] [place] [address]- 1714 May, [facility] [place] [facility] [address] [id number] [place] [address]- 2295 May, [facility] [place] [facility] [address] [id number] [place] [address]- 1053 May, [facility] [place] [facility] [address] [id number] [place] [address]- 1636 May, [facility] [place] [facility] [address] [id number] [place] [address]- 2546 Apr, [facility] [place] [facility] [address] [id number] [place] [address]- 0426 Mar, [facility] [place] [facility] [address] [id number] [place] [address]- 2546 14 Mar, 2013 [facility] [place] [facility] [address] [id number] [place] [address]- 7422 Feb, [facility] [address] [id number] [place] [address]- 9172 Feb, [facility] [place] [facility] [address] [id number] [place] [address]- 8395 Feb, [facility] [place] [facility] [address] [id number] [place] [address]- 0344 Jan, [facility] [place] [facility] [address] [id number] [place] [address]- 7218 Dec, [facility] [place] [facility] [address] [id number] [place] [address]- 2171 Dec, [facility] [place] [facility] [address] [id number] [place] [address]- 7489 Dec, [facility] [place] [facility] [address] [id number] [place] [address]- 3633 Dec, [facility] [place] [facility] [address] [id number] [place] [address]- 0030 November, [facility] [place] [facility] [address] [id number] [place] [address]- 3695 Sep, [facility] [place] [facility] [address] [id number] [place] [address]- 3647 Aug, [facility] [place] [facility] [address] [id number] [place] [address]- 4114 Jul, [facility] [place] [facility] [address] [id number] [address]- 4436 Jul, [facility] [place] [facility] [address] [id number] [place] [address]- 0586 Jun, [facility] [place] [facility] [address] [id number] [place] [address]- 0124 Jun, [facility] [place] [facility] [address] [id number] [place] [address]- 5427 May, [facility] [place] [facility] [id number] [address]- 9548 May, [facility] [id number] [address]- 9091 Aug, [facility] [address], [place] [address]- 1047 Jun, [facility] [address] [place] [address]- 7018 May, [facility] [address] [place] [address]- 6319 May, [facility] [address] [place] [address]- 2365 May, [facility] [address], [place] [address]- 1322 May, [facility] [address] [place] [address]- 6397 Apr, IMMUNIZATIONS No Known Immunizations SOCIAL HISTORY Never Assessed REASON FOR VISIT F\\Richy smith ma PLAN OF CARE Activity Details Follow Up 4 Weeks Reason: f/u VITAL SIGNS Height 63.75 in 2018-06-10 Weight 132 lbs 2018-06-10 Heart Rate 76 bpm 2018-06-10 Respiratory Rate 20 2018-06-10 BMI 22.83 kg/m2 2018-06-10 Blood pressure systolic 126 mmHg 2018-06-10 Blood pressure diastolic 82 mmHg 2018-06-10 MEDICATIONS Medication Instructions Dosage Frequency Start Date End Date Duration Status Rexulti 1 MG Orally Once a day 1 tablet 24h Jul, Active Niaspan 500 MG Orally Once a day 1 tablet at bedtime 24h Not- Taking Centrum Cardio Orally Once a day 1 tablet 24h Active Niacin ER 1000 MG Orally Once a day 1 tablet 24h Active Omeprazole 20 MG Orally Once a day 1 capsule 24h Active Levothyroxine Sodium 88 MCG Orally Once a day 1 tablet 24h Active Duloxetine HCl 60MG TAKE 1 CAPSULE TWICE A DAY Active Aspirin 81 mg 1 Capsule by Oral route 1 time per day Feb, Active Vitamin D3 2000 UNIT Active Metoprolol Tartrate 25 MG Orally Twice a day 1 tablet 12h Active Lipitor 80 MG Orally Once a day 1 tablet 24h Active Colestid 1 gram 1 Tablet by Oral route 2 times per day As needed Sep Active Lisinopril 5 mg Orally Once a day 0.5 tablet 24h Not-Taking Lovaza 1 GM Orally Twice a day 2 capsules 12h Active Gabapentin 600 MG 1 TABLET TWICE A DAY ORALLY 30 DAYS Active Mirtazapine 15 mg Orally Once a day at bedtime 1 tablet May, 30 day(s) Active [place] 3 1000 MG Orally Once a day 1 capsule 24h Active Iron Complex Active Potassium Active RESULTS No Results PROCEDURES Procedure Date Ordered Result Body Site [facility] VISIT ESTABLISHED PATIENT Jun 10, 2018 INSTRUCTIONS MEDICATIONS ADMINISTERED No Known Medications [...]
[2018-09-10] MEDS ORDERED: HEParin 1000 UNIT/ML (10ML VIAL) FOR BOLUS ONE (06:42)
[2018-09-10] MEDS ORDERED: NS IV 1000 ML 3,000 ML ONE (06:43)
[2018-09-10] MEDS ORDERED: LIDOCAINE 1% INJ 20 ML 20 ML VIAL ONE (06:43)
--- OUTSIDE RECORDS SUMMARY | 2018-09-10 06:44 | XMS REPORT | Continuity of Care Document ---
Author Author [facility] Address Unknown Phone Unavailable Allergies Active Description Code Type Severity Reaction Onset Reported/Identified Relationship to Patient Clinical Status Yes olanzapine [id number] Drug Allergy Unknown N/A 08/03/2008 Yes codeine Drug Allergy 02/16/2011 Yes codeine Drug Allergy N/A N/A 02/16/2011 Yes Cefadroxil Drug Allergy N/A N/A 08/20/2013 Yes cefadroxil [id number] Drug Allergy Unknown N/A 05/13/2018 Yes codeine [id number] Drug Allergy Unknown N/A 05/13/2018 Yes cefadroxil [id number] Drug Allergy Mild MAKES HER DIZZY 05/15/2018 [...] PF PSYCHIC FACTORS MED COND 05/05/2008 JENNIFER LAMINATED PLASTICS ASSEMBLER AND GLUER, CODY 296.30 MAJOR DEPRESSIVE AFFECTIVE DISORDER RECURRENT EPISODE UNSPECIFIED DEGREE 05/05/2008 JENNIFER L[employer]INATED P[employer] ASSEMBLER AND GLUER, CODY 300.21 AN PANIC DIS W AGORA 05/05/2008 JENNIFER LAMINATED PLAST[employer] ASSEMBLER AND GLUER, CODY 307.47 SI DYSSOMNIA NOS 05/05/2008 JENNIFER LAMINATED PLAST[employer] ASSEMBLER AND GLUER, CODY 316 PF PSYCHIC FACTORS MED COND 05/05/2008 JENNIFER LAMINATED PLASTICS ASSEMBLER AND GLUER, CODY 296.30 MAJOR DEPRESSIVE AFFECTIVE DISORDER RECURRENT EPISODE UNSPECIFIED DEGREE 05/05/2008 JENNIFER LAMINATED PLAST[employer] ASSEMBLER AND GLUER, CODY 300.21 AN PANIC DIS W AGORA 05/05/2008 JENNIFER LAMINATED PLASTICS ASSEMBLER AND GLUER, CODY 307.47 SI DYSSOMNIA NOS 05/05/2008 JENNIFER [...] MD 300.00 AN ANXIETY UNSPEC 05/26/2008 JENNIFER LAMINATED P[employer] ASSEMBLER AND GLUER, CODY 296.32 MAJOR DEPRESSIVE AFFECTIVE DISORDER RECURRENT EPISODE MODERATE DEGREE 05/26/2008 JENNIFER LAMINATED PLAST[employer] ASSEMBLER AND GLUER, CODY 300.00 AN ANXIETY UNSPEC 05/26/2008 JENNIFER LAMINATED PLAST[employer] ASSEMBLER AND GLUER, CODY 296.32 MAJOR DEPRESSIVE AFFECTIVE DISORDER RECURRENT EPISODE MODERATE DEGREE 05/26/2008 JENNIFER LAMINATED PLAST[employer] ASSEMBLER AND GLUER, CODY 300.00 AN ANXIETY UNSPEC 01/28/2009 294.9 [...] DUE TO CONDITIONS CLASSIFIED ELSEWHERE 01/28/2009 JENNIFER LAMINATED P[employer] ASSEM[employer]ER AND GLUER, CODY 294.9 UNSPECIFIED PERSISTENT MENTAL DISORDERS DUE TO CONDITIONS CLASSIFIED ELSEWHERE 01/28/2009 JENNIFER TIM CODY 294.9 UNSPECIFIED PERSISTENT MENTAL DISORDERS DUE TO CONDITIONS CLASSIFIED ELSEWHERE 04/20/2011 Ot 272.4 HYPERLIPIDEMIA NEC/NOS 04/20/2011 Ot 401.9 HYPERTENSION NOS 04/20/2011 Ot 414.01 CORONARY ATHEROSCLEROSIS OF [place] CORON 04/20/2011 Ot 414.02 CORON ATHEROSCLEROSIS AUTOLOG [...] NOS 09/10/2012 Ot 414.01 CORONARY ATHEROSCLEROSIS OF [place] CORON 09/10/2012 Ot 414.02 CORON ATHEROSCLEROSIS AUTOLOG [...] AN PANIC DIS W/O AGORA 09/19/2012 DERICK NEUMNAN, ALCIDES Obrien 300.01 AN PANIC DIS W/O AGORA 09/19/2012 DERICK NEUMANN, ALCIDES Obrien 300.01 AN PANIC DIS W/O AGORA 09/19/2012 DAVID ALAN MD 300.01 AN PANIC DIS W/O AGORA 09/19/2012 JENNIFER LAMINATED PLAST[employer] ASSEMBLER AND GLUER, CODY 300.01 AN PANIC DIS W/O AGORA 09/19/2012 JENNIFER LAMINATED PLAST[employer] ASSEMBLER AND GLUER, CODY 300.01 AN PANIC DIS W/O AGORA 04/01/2013 TRUDY LANGFORD Ot 816.00 FX PHALANX, HAND NOS-CL 04/01/2013 TRUDY LANGFORD Ot 959.5 FINGER INJURY NOS 04/01/2013 TRUDY LANGFORD Ot E000.8 OTHER EXTERNAL CAUSE STATUS 04/01/2013 TRUDY LANGFORD Ot E849.0 ACCIDENT IN HOME 04/01/2013 TRUDY LANGFORD Ot E888.9 FALL NOS 04/30/2013 SOLEDAD MAYER DO Ot 272.4 HYPERLIPIDEMIA NEC/NOS 04/30/2013 SOLEDDA MAYER DO Ot 300.01 PANIC DISORDER WITHOUT [...] MD Ot I25.10 ATHSCL HEART DISEASE OF [place] CORONARY 09/21/2015 SUZETTE COCHRAN MD, Ot I25.82 [...] 09/21/2015 SUZETTE COCHRAN MD, Ot Z79.899 OTHER CUSTODIAL (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 09/21/2015 SUZETTE COCHRAN MD, [...] ROSITA CRUZP Ot V49.81 10/11/2015 ROSITA CRUZ PERSONAL CARE ATTENDANT Ot V76.12 10/11/2015 ESA BETTS Ot 401.9 [...] NEC/NOS 11/18/2015 Ot 414.01 CORONARY ATHEROSCLEROSIS OF [place] CORON 11/18/2015 Ot 440.20 ATHEROSCLEROSIS [place] ARTERIES EXTREMIT 11/18/2015 Ot 998.12 HEMATOMA COMPLIC [...] RT BUNDLE BRANCH BLOCK 11/18/2015 ROSITA CRUZ PERSONAL CARE ATTENDANT Ot V49.81 ASYMPT POSTMENOPAUSAL STATUS (AGE-RELATE 11/18/2015 ROSITA CRUZ PERSONAL CARE ATTENDANT Ot V76.12 OTH SCREEN MAMMO-MALIGN NEOPLASM OF [...] MD, Ot I25.10 ATHSCL HEART DISEASE OF [place] CORONARY 11/25/2015 SUZETTE COCHRAN MD, Ot I25.82 [...] 11/25/2015 SUZETTE COCHRAN MD Ot Z79.899 OTHER CUSTODIAL (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 11/25/2015 SUZETTE COCHRAN MD Ot Z95.1 PRESENCE OF AORTOCORONARY BYPASS GRAFT 07/23/2016 Ot 272.4 HYPERLIPIDEMIA NEC/NOS 07/23/2016 Ot 414.01 CORONARY ATHEROSCLEROSIS OF [place] CORON 07/23/2016 Ot 440.20 ATHEROSCLEROSIS [place] ARTERIES EXTREMIT 07/23/2016 Ot 998.12 HEMATOMA COMPLIC [...] OF HEMORR 07/23/2016 Ot 396.3 MITRAL/ AORTIC CRISAT INSUFF 07/23/2016 Ot 397.0 TRICUSPID VALVE DISEASE [...] RT BUNDLE BRANCH BLOCK 09/03/2016 ROSITA CRUZ PERSONAL CARE ATTENDANT Ot V49.81 ASYMPT POSTMENOPAUSAL STATUS (AGE-RELATE 09/03/2016 ROSITA CRUZ PERSONAL CARE ATTENDANT Ot V76.12 OTH SCREEN MAMMO-MALIGN NEOPLASM OF [...] MD Ot I25.10 ATHSCL HEART DISEASE OF [place] CORONARY 01/18/2017 SUZETTE COCHRAN MD Ot 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 01/18/2017 SUZETTE COCHRAN MD Ot M79.7 FIBROMYALGIA 02/08/2017 SUZETTE COCHRAN MD Ot E78.2 MIXED HYPERLIPIDEMIA 02/08/2017 SUZETTE COCHRAN MD Ot I10 ESSENTIAL (PRIMARY) HYPERTENSION 02/08/2017 SUZETTE COCHRAN MD Ot I25.10 ATHSCL HEART DISEASE OF [place] CORONARY 02/08/2017 SUZETTE COCHRAN MD Ot 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 02/08/2017 SUZETTE COCHRAN MD Ot M79.7 FIBROMYALGIA 03/04/2017 SUZETTE COCHRAN MD Ot E78.2 MIXED HYPERLIPIDEMIA 03/04/2017 SUZETTE COCHRAN MD Ot I10 ESSENTIAL (PRIMARY) HYPERTENSION 03/04/2017 SUZETTE COCHRAN MD Ot I25.10 ATHSCL HEART DISEASE OF [place] CORONARY 03/04/2017 SUZETTE COCHRAN MD Ot I65.23 [...] MD Ot I25.10 ATHSCL HEART DISEASE OF [place] CORONARY 01/09/2018 SUZETTE COCHRAN MD Ot 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 01/09/2018 SUZETTE COCHRAN MD Ot M79.7 FIBROMYALGIA 01/15/2018 SUZETTE COCHRAN MD Ot E78.5 HYPERLIPIDEMIA, UNSPECIFIED 01/15/2018 SUZETTE COCHRAN MD 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 01/15/2018 SUZETTE COCHRAN MD Ot I11.0 HYPERTENSIVE HEART DISEASE WITH HEART FA 01/15/2018 SUZETTE COCHRAN MD Ot I25.10 ATHSCL HEART DISEASE OF [place] CORONARY 01/15/2018 SUZETTE COCHRAN MD Ot I50.9 HEART FAILURE, UNSPECIFIED 02/04/2018 SUZETTE COCHRAN MD Ot E78.5 HYPERLIPIDEMIA, UNSPECIFIED 02/04/2018 SUZETTE COCHRAN MD 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 02/04/2018 SUZETTE COCHRAN MD Ot I11.0 HYPERTENSIVE HEART DISEASE WITH HEART FA 02/04/2018 SUZETTE COCHRAN MD Ot I25.10 ATHSCL HEART DISEASE OF [place] CORONARY 02/04/2018 SUZETTE COCHRAN MD Ot I50.9 HEART FAILURE, UNSPECIFIED 02/17/2018 SUZETTE COCHRAN MD Ot E78.5 HYPERLIPIDEMIA, UNSPECIFIED 02/17/2018 SUZETTE COCHRAN MD 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 02/17/2018 SUZETTE COCHRAN MD Ot I11.0 HYPERTENSIVE HEART DISEASE WITH HEART FA 02/17/2018 SUZETTE COCHRAN MD Ot I25.10 ATHSCL HEART DISEASE OF [place] CORONARY 02/17/2018 SUZETTE COCHRAN MD Ot I50.9 [...] MD Ot I25.10 ATHSCL HEART DISEASE OF [place] CORONARY 05/13/2018 SUZETTE COCHRAN MD Ot 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 05/13/2018 SUZETTE COCHRAN MD Ot M79.7 FIBROMYALGIA 05/13/2018 SUZETTE COCHRAN MD Ot E78.5 HYPERLIPIDEMIA, UNSPECIFIED 05/13/2018 SUZETTE COCHRAN MD 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 05/13/2018 SUZETTE COCHRAN MD, Ot I11.0 HYPERTENSIVE HEART DISEASE WITH HEART FA 05/13/2018 SUZETTE COCHRAN MD, Ot I25.10 ATHSCL HEART DISEASE OF [place] CORONARY 05/13/2018 SUZETTE COCHRAN MD Ot I50.9 [...] MD, Ot I25.10 ATHSCL HEART DISEASE OF [place] CORONARY 05/13/2018 SUZETTE COCHRAN MD Ot 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 05/13/2018 SUZETTE COCHRAN MD Ot M79.7 FIBROMYALGIA 05/13/2018 SUZETTE COCHRAN MD, Ot E78.5 HYPERLIPIDEMIA, UNSPECIFIED 05/13/2018 SUZETTE COCHRAN MD 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 05/13/2018 SUZETTE COCHRAN MD, Ot I11.0 HYPERTENSIVE HEART DISEASE WITH HEART FA 05/13/2018 SUZETTE COCHRAN MD, Ot I25.10 ATHSCL HEART DISEASE OF [place] CORONARY 05/13/2018 SUZETTE COCHRAN MD Ot I50.9 [...] ANGELITO WAN DO Ot K56.2 VOLVULUS 05/18/2018 ANGLEITO WAN DO Ot K56.699 OTHER INTESTNL OBST [...] K58.9 IRRITABLE BOWEL SYNDROME WITHOUT DIARRHE 05/18/2018 AGNELITO WAN DO Ot M19.91 PRIMARY OSTEOARTHRITIS, UNSPECIFIED [...] MD Ot I25.10 ATHSCL HEART DISEASE OF [place] CORONARY 05/27/2018 MARICHUY WILLIS MD Ot I50.9 [...] MD Ot I25.10 ATHSCL HEART DISEASE OF [place] CORONARY 05/30/2018 MARICHUY WILLIS MD Ot I50.9 [...] OTHER SPECIFIED POSTPROCEDURAL STATES 05/31/2018 ROSITA CRUZ PERSONAL CARE ATTENDANT Ot V49.81 ASYMPT POSTMENOPAUSAL STATUS (AGE-RELATE 05/31/2018 ROSITA CRUZ PERSONAL CARE ATTENDANT Ot V76.12 OTH SCREEN MAMMO-MALIGN NEOPLASM OF [...] MD Ot I25.10 ATHSCL HEART DISEASE OF [place] CORONARY 05/31/2018 SUZETTE COCHRAN MD Ot 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 05/31/2018 SUZETTE COCHRAN MD Ot M79.7 FIBROMYALGIA 05/31/2018 SUZETTE COCHRAN MD, Ot E78.5 HYPERLIPIDEMIA, UNSPECIFIED 05/31/2018 SUZETTE COCHRAN MD 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 05/31/2018 SUZETTE COCHRAN MD Ot I11.0 HYPERTENSIVE HEART DISEASE WITH HEART FA 05/31/2018 SUZETTE COCHRAN MD, Ot I25.10 ATHSCL HEART DISEASE OF [place] CORONARY 05/31/2018 SUZETTE COCHRAN MD Ot I50.9 HEART FAILURE, UNSPECIFIED 06/04/2018 KEVIN ALCARAZ MD, Ot A41.9 SEPSIS, UNSPECIFIED ORGANISM 06/04/2018 KEVIN ALCARAZ MD, Ot B17.9 ACUTE VIRAL HEPATITIS, UNSPECIFIED 06/04/2018 KEVIN ALCARAZ MD, Ot E03.9 HYPOTHYROIDISM, UNSPECIFIED 06/04/2018 KEVIN ALCARAZ MD, Ot E11.9 TYPE 2 DIABETES MELLITUS WITHOUT COMPLIC 06/04/2018 KEVIN ALCARAZ MD, Ot E78.00 PURE HYPERCHOLESTEROLEMIA, UNSPECIFIED 06/04/2018 KEVIN ALCARAZ MD, Ot F32.9 MAJOR DEPRESSIVE DISORDER, SINGLE EPISOD 06/04/2018 KEVIN ALCARAZ MD, Ot F41.9 ANXIETY DISORDER, UNSPECIFIED 06/04/2018 KEVIN ALCARAZ MD, Ot G47.30 SLEEP APNEA, UNSPECIFIED 06/04/2018 KEVIN ALCARAZ MD, 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 06/04/2018 KEVIN ALCARAZ MD, Ot I13.0 HYP HRT CHR KDNY DIS W HRT FAIL AND ST 06/04/2018 KEVIN ALCARAZ MD, Ot I21.4 NON-ST ELEVATION (NSTEMI) MYOCARDIAL INF 06/04/2018 KEVIN ALCARAZ MD, Ot I25.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 06/04/2018 KEVIN ALCARAZ MD, Ot I50.23 ACUTE ON CHRONIC SYSTOLIC (CONGESTIVE) H 06/04/2018 KEVIN ALCARAZ MD, Ot 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 06/04/2018 KEVIN ALCARAZ MD, Ot J18.1 LOBAR PNEUMONIA, UNSPECIFIED ORGANISM 06/04/2018 KEVIN ALCARAZ MD, Ot J90 PLEURAL EFFUSION, NOT ELSEWHERE CLASSIFI 06/04/2018 KEVIN ALCARAZ MD, Ot K57.90 DVRTCLOS OF INTEST, PART UNSP, W/O PERF 06/04/2018 KEVIN ALCARAZ MD, Ot K58.9 IRRITABLE BOWEL SYNDROME WITHOUT DIARRHE 06/04/2018 KEVIN ALCARAZ MD, Ot K76.1 CHRONIC PASSIVE CONGESTION OF LIVER 06/04/2018 KEVIN ALCARAZ MD, Ot K82.8 OTHER SPECIFIED DISEASES OF GALLBLADDER 06/04/2018 KEVIN ALCARAZ MD, Ot K82.9 DISEASE OF GALLBLADDER, UNSPECIFIED 06/04/2018 KEVIN ALCARAZ MD, Ot M19.91 PRIMARY OSTEOARTHRITIS, UNSPECIFIED SITE 06/04/2018 KEVIN ALCARAZ MD, Ot M79.7 FIBROMYALGIA 06/04/2018 KEVIN ALCARAZ MD, Ot N18.3 CHRONIC KIDNEY DISEASE, STAGE 3 (MODERAT 06/04/2018 KEVIN ALCARAZ MD, Ot R65.20 SEVERE SEPSIS WITHOUT SEPTIC SHOCK 06/04/2018 KEVIN ALCARAZ MD, Ot R79.89 OTHER SPECIFIED ABNORMAL FINDINGS OF BLO 06/04/2018 KEVIN ALCARAZ MD, Ot Z95.1 PRESENCE OF AORTOCORONARY BYPASS GRAFT 06/06/2018 ANKITA STOVALL APRN Ot E03.9 HYPOTHYROIDISM, UNSPECIFIED 06/06/2018 ANKITA STOVALL APRN Ot E78.00 PURE HYPERCHOLESTEROLEMIA, UNSPECIFIED 06/06/2018 ANKITA STOVALL APRN Ot F32.9 MAJOR DEPRESSIVE DISORDER, SINGLE EPISOD 06/06/2018 ANKITA STOVALL APRN Ot F41.9 ANXIETY DISORDER, UNSPECIFIED 06/06/2018 ANKITA STOVALL APRN Ot G47.30 SLEEP APNEA, UNSPECIFIED 06/06/2018 ANKITA STOVALL APRN Ot I10 ESSENTIAL (PRIMARY) HYPERTENSION 06/06/2018 ANKITA STOVALL APRN Ot I25.10 ATHSCL HEART DISEASE OF [place] CORONARY 06/06/2018 ANKITA STOVALL APRN Ot T81.31XA DISRUPTION OF EXTERNAL OPERATION (SURGIC 06/06/2018 ANKITA STOVALL APRN Ot T81.89XA OTH COMPLICATIONS OF PROCEDURES, NEC, IN 06/06/2018 ANKITA STOVALL APRN Ot Z79.82 PLEAT TAPER (CURRENT) USE OF ASPIRIN 06/06/2018 ANKITA STOVALL APRN Ot Z82.49 FAMILY HX OF ISCHEM HEART DIS AND OTH DI 06/06/2018 ANKITA STOVALL APRN Ot Z87.19 PERSONAL HISTORY OF OTHER DISEASES OF TH 06/06/2018 STOVALL, PETER J LAMINATED PLASTICS ASSEMBLER AND GLUER Ot Z87.440 PERSONAL HISTORY OF URINARY (TRACT) INFE 06/06/2018 ANKITA STOVALL APRN Ot Z88.5 ALLERGY STATUS TO NARCOTIC AGENT STATUS 06/06/2018 ANKITA STOVALL APRN Ot Z88.8 ALLERGY STATUS TO OTH DRUG/MEDS/BIOL SUB 06/06/2018 ANKITA STOVALL APRN Ot Z90.710 ACQUIRED ABSENCE OF BOTH CERVIX AND UTER 06/06/2018 ANKITA STOVALL APRN Ot Z95.1 PRESENCE OF AORTOCORONARY BYPASS GRAFT 06/06/2018 ANKITA STOVALL APRN Ot Z98.890 OTHER SPECIFIED POSTPROCEDURAL STATES 06/12/2018 ANKITA STOVALL APRN Ot E03.9 HYPOTHYROIDISM, UNSPECIFIED 06/12/2018 ANKITA STOVALL APRN Ot E78.00 PURE HYPERCHOLESTEROLEMIA, UNSPECIFIED 06/12/2018 ANKITA STOVALL APRN Ot F32.9 MAJOR DEPRESSIVE DISORDER, SINGLE EPISOD 06/12/2018 ANKITA STOVALL APRN Ot F41.9 ANXIETY DISORDER, UNSPECIFIED 06/12/2018 ANKITA TSOVALL APRN Ot G47.30 SLEEP APNEA, UNSPECIFIED 06/12/2018 ANKITA STOVALL APRN Ot I10 ESSENTIAL (PRIMARY) HYPERTENSION 06/12/2018 ANKITA STOVALL APRN Ot I25.10 ATHSCL HEART DISEASE OF [place] CORONARY 06/12/2018 ANKITA STOVALL APRN Ot T81.31XA DISRUPTION OF EXTERNAL OPERATION (SURGIC 06/12/2018 ANKITA STOVALL APRN Ot T81.89XA OTH COMPLICATIONS OF PROCEDURES, NEC, IN 06/12/2018 ANKITA STOVALL APRN Ot Z79.82 CUSTODIAL (CURRENT) USE OF ASPIRIN 06/12/2018 ANKITA STOVALL APRN Ot Z82.49 FAMILY HX OF ISCHEM HEART DIS AND OTH DI 06/12/2018 ANKITA STOVALL APRN Ot Z87.19 PERSONAL HISTORY OF OTHER DISEASES OF TH 06/12/2018 ANKITA STOVALL APRN Ot Z87.440 PERSONAL HISTORY OF URINARY (TRACT) INFE 06/12/2018 ANKITA STOVALL APRN Ot Z88.5 ALLERGY STATUS TO NARCOTIC AGENT STATUS 06/12/2018 ANKITA STOVALL APRN Ot Z88.8 ALLERGY STATUS TO OTH DRUG/MEDS/BIOL SUB 06/12/2018 ANKITA STOVALL LAMINATED PLASTICS ASSEMBLER AND GLUER Ot Z90.710 ACQUIRED ABSENCE OF BOTH CERVIX AND UTER 06/12/2018 ANKITA STOVALL LAMINATED PLASTICS ASSEMBLER AND GLUER Ot Z95.1 PRESENCE OF AORTOCORONARY BYPASS GRAFT 06/12/2018 ANKITA STOVALL LAMINATED PLASTICS ASSEMBLER AND GLUER Ot Z98.890 OTHER SPECIFIED POSTPROCEDURAL STATES 07/09/2018 KIRAWILL CARTY LAMINATED PLASTICS ASSEMBLER AND GLUER Ot G47.30 SLEEP APNEA, UNSPECIFIED 07/09/2018 KIRAWILL CARTY LAMINATED PLASTICS ASSEMBLER AND GLUER Ot G47.30 SLEEP APNEA, UNSPECIFIED 07/20/2018 KIRAWILL CARTY E LAMINATED PLASTICS ASSEMBLER AND GLUER Ot G47.10 HYPERSOMNIA, UNSPECIFIED 07/20/2018 KIRAWILL CARTY E LAMINATED PLASTICS ASSEMBLER AND GLUER Ot G47.33 OBSTRUCTIVE SLEEP APNEA (ADULT) (PEDIATR 07/20/2018 PILLO MALONEINE E LAMINATED PLASTICS ASSEMBLER AND GLUER Ot G47.61 PERIODIC LIMB MOVEMENT DISORDER 07/20/2018 PILLO MALONEINE E LAMINATED PLASTICS ASSEMBLER AND GLUER Ot I48.91 UNSPECIFIED ATRIAL FIBRILLATION 07/24/2018 WILL MALONE E LAMINATED PLASTICS ASSEMBLER AND GLUER Ot G47.10 HYPERSOMNIA, UNSPECIFIED 07/24/2018 KIRAPILLO CARTYINE E LAMINATED PLASTICS ASSEMBLER AND GLUER Ot G47.33 OBSTRUCTIVE SLEEP APNEA (ADULT) (PEDIATR 07/24/2018 KIRAWLIL CARTY E LAMINATED PLASTICS ASSEMBLER AND GLUER Ot G47.61 PERIODIC LIMB MOVEMENT DISORDER 07/24/2018 PILLO MALONEINE Devorah LAMINATED PLASTICS ASSEMBLER AND GLUER Ot I48.91 UNSPECIFIED ATRIAL FIBRILLATION 08/29/2018 PILLO MALONEINE Devorah LAMINATED PLASTICS ASSEMBLER AND GLUER Ot G47.30 SLEEP APNEA, UNSPECIFIED 08/29/2018 WILL MALONE E LAMINATED PLASTICS ASSEMBLER AND GLUER Ot G47.30 SLEEP APNEA, UNSPECIFIED Procedures Code Description Performed By Performed On 45.16 ESOPHAGOGASTRODUODENOSCOPY [ EGD] W/CLOSE 05/23/2012 97459 PSYCH DIAGNOSTIC EVALUATION 09/25/2012 48300 PSYTX PT&/FAMILY 45 MINUTES 11/20/2012 23315 PSYTX PT&/FAMILY 45 MINUTES 01/06/2013 48355 PSYTX PT&/FAMILY 45 MINUTES 03/05/2013 08998 SLEEP STUDY 04/10/2013 63123 PSYTX PT&/FAMILY 45 MINUTES 04/13/2013 67694 PSYTX PT&/FAMILY 45 MINUTES 05/01/2013 21831 PSYTX PT&/FAMILY 45 MINUTES 08/21/2013 13925 PSYTX PT&/FAMILY 45 MINUTES 09/08/2013 65755 PSYTX PT&/FAMILY 45 MINUTES 09/23/2013 35810 PSYTX PT&/FAMILY 45 MINUTES 11/10/2013 [id number] RESECTION OF RIGHT LARGE INTESTINE, OPEN 05/13/2018 [id number] REPAIR ABDOMINAL WALL, OPEN APPROACH 05/13/2018 Results [...] culture - 05/13/18 12:48 Bacterial urine culture [id number] NRG COLONY COUNT >100,000/ML NRG FTX;REPORTABLE ID/SENSITIVITY [...] 05/31/18 11:44 BNP level 4576.7 pg/mL <100.0 Bacterial blood culture - 05/31/18 11:44 FREE TEXT EXTERNAL RML REPORTED ID 06/03/18 12:05 NRG QUANTITY OF GROWTH Isolated NRG Bacterial blood culture [id number] NR FREE TEXT ENTRY 2 RML REPORTED ID 06/03 12:05 NRG Serum or plasma lactate measurement (moles/volume) - 05/31/18 13:13 Serum or plasma lactate measurement (moles/volume) 2.56 mmol/L 0.50-2.00 Ammonia - 05/31/18 13:13 Ammonia 31 umol/L 11-32 Serum or plasma acetaminophen measurement (mass/volume) - 05/31/18 13:13 Serum or plasma acetaminophen measurement (mass/volume) < ug/mL 10-30 Bacterial blood culture - 05/31/18 13:13 Bacterial blood culture NG NRG Serum or plasma troponin i.cardiac measurement (mass/volume) - 06/01/18 02:25 Serum or plasma troponin i.cardiac measurement (mass/volume) 1.38 ng /mL <0.30 Complete blood count (CBC) with automated white blood cell (WBC) differential - 06/01/18 02:55 Blood leukocytes automated count (number/volume) 10.0 10*3/uL 4.3-11.0 Blood erythrocytes automated count (number/volume) 3.36 10*6/uL 4.35-5.85 Venous blood hemoglobin measurement (mass/volume) 11.0 g/dL 11.5-16.0 Blood hematocrit (volume fraction) 34 % 35-52 Automated erythrocyte mean corpuscular volume 101 [foz_us] 80-99 Automated erythrocyte mean corpuscular hemoglobin (mass per erythrocyte) 33 pg 25-34 Automated erythrocyte mean corpuscular hemoglobin concentration measurement ( mass/volume) 33 g/dL 32-36 Automated erythrocyte distribution width ratio 13.6 % 10.0-14.5 Automated blood platelet count (count/volume) 376 10*3/uL 130-400 Automated blood platelet mean volume measurement 10.4 [foz_us] 7.4-10.4 Automated blood neutrophils/100 leukocytes 73 % 42-75 Automated blood lymphocytes/100 leukocytes 15 % 12-44 Blood monocytes/100 leukocytes 9 % 0-12 Automated blood eosinophils/100 leukocytes 3 % 0-10 Automated blood basophils/100 leukocytes 0 % 0-10 Blood neutrophils automated count (number/volume) 7.3 10*3 1.8-7.8 Blood lymphocytes automated count (number/volume) 1.5 10*3 1.0-4.0 Blood monocytes automated count (number/volume) 0.9 10*3 0.0-1.0 Automated eosinophil count 0.3 10*3/uL 0.0-0.3 Automated blood basophil count (count/volume) 0.0 10*3/uL 0.0-0.1 Comprehensive metabolic panel - 06/01/18 02:55 Serum or plasma sodium measurement (moles/volume) 139 mmol/L 135-145 Serum or plasma potassium measurement (moles/volume) 3.4 mmol/L 3.6-5.0 Serum or plasma chloride measurement (moles/volume) 100 mmol/L 98-107 Carbon dioxide 22 mmol/L 21-32 Serum or plasma anion gap determination (moles/volume) 17 mmol/L 5-14 Serum or plasma urea nitrogen measurement (mass/volume) 18 mg/dL 7-18 Serum or plasma creatinine measurement (mass/volume) 1.47 mg/dL 0.60-1.30 Serum or plasma urea nitrogen/creatinine mass ratio 12 NRG Serum or plasma creatinine measurement with calculation of estimated glomerular filtration rate 35 NRG Serum or plasma glucose measurement (mass/volume) 97 mg/dL 70-105 Serum or plasma calcium measurement (mass/volume) 8.6 mg/dL 8.5-10.1 Serum or plasma total bilirubin measurement (mass/volume) 0.8 mg/dL 0.1-1.0 Serum or plasma alkaline phosphatase measurement (enzymatic activity/volume) 166 U/L 40-136 Serum or plasma aspartate aminotransferase measurement (enzymatic activity/ volume) 508 U/L 5-34 Serum or plasma alanine aminotransferase measurement (enzymatic activity/volume ) 332 U/L 0-55 Serum or plasma protein measurement (mass/volume) 5.6 g/dL 6.4-8.2 Serum or plasma albumin measurement (mass/volume) 3.0 g/dL 3.2-4.5 CALCIUM CORRECTED 9.4 mg/dL 8.5-10.1 Automated blood complete blood count (hemogram) panel - 06/02/18 05:44 Blood leukocytes automated count (number/volume) 7.0 10*3/uL 4.3-11.0 Blood erythrocytes automated count (number/volume) 3.29 10*6/uL 4.35-5.85 Venous blood hemoglobin measurement (mass/volume) 10.6 g/dL 11.5-16.0 Blood hematocrit (volume fraction) 33 % 35-52 Automated erythrocyte mean corpuscular volume 101 [foz_us] 80-99 Automated erythrocyte mean corpuscular hemoglobin (mass per erythrocyte) 32 pg 25-34 Automated erythrocyte mean corpuscular hemoglobin concentration measurement ( mass/volume) 32 g/dL 32-36 Automated erythrocyte distribution width ratio 14.0 % 10.0-14.5 Automated blood platelet count (count/volume) 346 10*3/uL 130-400 Automated blood platelet mean volume measurement 9.4 [foz_us] 7.4-10.4 Comprehensive metabolic panel - 06/02/18 05:44 Serum or plasma sodium measurement (moles/volume) 141 mmol/L 135-145 Serum or plasma potassium measurement (moles/volume) 3.6 mmol/L 3.6-5.0 Serum or plasma chloride measurement (moles/volume) 98 mmol/L 98-107 Carbon dioxide 29 mmol/L 21-32 Serum or plasma anion gap determination (moles/volume) 14 mmol/L 5-14 Serum or plasma urea nitrogen measurement (mass/volume) 13 mg/dL 7-18 Serum or plasma creatinine measurement (mass/volume) 1.42 mg/dL 0.60-1.30 Serum or plasma urea nitrogen/creatinine mass ratio 9 NRG Serum or plasma creatinine measurement with calculation of estimated glomerular filtration rate 36 NRG Serum or plasma glucose measurement (mass/volume) 95 mg/dL 70-105 Serum or plasma calcium measurement (mass/volume) 8.7 mg/dL 8.5-10.1 Serum or plasma total bilirubin measurement (mass/volume) 1.2 mg/dL 0.1-1.0 Serum or plasma alkaline phosphatase measurement (enzymatic activity/volume) 137 U/L 40-136 Serum or plasma aspartate aminotransferase measurement (enzymatic activity/ volume) 243 U/L 5-34 Serum or plasma alanine aminotransferase measurement (enzymatic activity/volume ) 242 U/L 0-55 Serum or plasma protein measurement (mass/volume) 5.8 g/dL 6.4-8.2 Serum or plasma albumin measurement (mass/volume) 3.1 g/dL 3.2-4.5 CALCIUM CORRECTED 9.4 mg/dL 8.5-10.1 Serum or plasma troponin i.cardiac measurement (mass/volume) - 06/02/18 05:44 Serum or plasma troponin i.cardiac measurement (mass/volume) 1.17 ng /mL <0.30 PT panel in platelet poor plasma by coagulation assay - 06/02/18 05:44 Prothrombin time (PT) in platelet poor plasma by coagulation assay 16.6 s 12.2-14.7 INR in platelet poor plasma or blood by coagulation assay 1.3 0.8-1.4 Serum or plasma lithium measurement (moles/volume) - 06/02/18 05:44 BNP level 3361.9 pg/mL <100.0 Vancomycin trough - 06/02/18 14:15 Vancomycin trough 18.4 ug/mL 10.0-20.0 Automated blood complete blood count (hemogram) panel - 06/03/18 06:11 Blood leukocytes automated count (number/volume) 6.3 10*3/uL 4.3-11.0 Blood erythrocytes automated count (number/volume) 3.05 10*6/uL 4.35-5.85 Venous blood hemoglobin measurement (mass/volume) 9.9 g/dL 11.5-16.0 Blood hematocrit (volume fraction) 31 % 35-52 Automated erythrocyte mean corpuscular volume 101 [foz_us] 80-99 Automated erythrocyte mean corpuscular hemoglobin (mass per erythrocyte) 33 pg 25-34 Automated erythrocyte mean corpuscular hemoglobin concentration measurement ( mass/volume) 32 g/dL 32-36 Automated erythrocyte distribution width ratio 14.2 % 10.0-14.5 Automated blood platelet count (count/volume) 309 10*3/uL 130-400 Automated blood platelet mean volume measurement 9.8 [foz_us] 7.4-10.4 Comprehensive metabolic panel - 06/03/18 06:11 Serum or plasma sodium measurement (moles/volume) 140 mmol/L 135-145 Serum or plasma potassium measurement (moles/volume) 3.4 mmol/L 3.6-5.0 Serum or plasma chloride measurement (moles/volume) 99 mmol/L 98-107 Carbon dioxide 29 mmol/L 21-32 Serum or plasma anion gap determination (moles/volume) 12 mmol/L 5-14 Serum or plasma urea nitrogen measurement (mass/volume) 11 mg/dL 7-18 Serum or plasma creatinine measurement (mass/volume) 1.39 mg/dL 0.60-1.30 Serum or plasma urea nitrogen/creatinine mass ratio 8 NRG Serum or plasma creatinine measurement with calculation of estimated glomerular filtration rate 37 NRG Serum or plasma glucose measurement (mass/volume) 90 mg/dL 70-105 Serum or plasma calcium measurement (mass/volume) 8.6 mg/dL 8.5-10.1 Serum or plasma total bilirubin measurement (mass/volume) 1.1 mg/dL 0.1-1.0 Serum or plasma alkaline phosphatase measurement (enzymatic activity/volume) 115 U/L 40-136 Serum or plasma aspartate aminotransferase measurement (enzymatic activity/ volume) 116 U/L 5-34 Serum or plasma alanine aminotransferase measurement (enzymatic activity/volume ) 166 U/L 0-55 Serum or plasma protein measurement (mass/volume) 5.4 g/dL 6.4-8.2 Serum or plasma albumin measurement (mass/volume) 2.9 g/dL 3.2-4.5 CALCIUM CORRECTED 9.5 mg/dL 8.5-10.1 Gram stain microscopy - 06/06/18 17:15 Gram stain microscopy No bacteria seen NRG Bacteria identification in wound by culture - 06/06/18 17:15 Bacteria identification in wound by culture NG NRG Encounters ACCT No. Visit Date/Time Discharge Status Pt. Type Provider Facility Loc./Unit Complaint [id number] 02/25/2014 15:48:00 02/25/2014 23:59:59 CODY Odom APRN [id number] 02/25/2014 15:48:00 02/25/2014 23:59:59 CODY Odom APRN [id number] 11/26/2013 09:48:00 11/26/2013 23:59:59 DUTCH Outpatient DAVID ALAN MD [id number] 11/10/2013 17:55:00 11/10/2013 23:59:59 DUTCH Outpatient ALCIDES SEPULVEDA PHD [id number] 09/22/2013 16:49:00 09/22/2013 23:59:59 DUTCH Outpatient ALCIDES SEPULVEDA PHD [id number] 09/08/2013 15:53:00 09/08/2013 23:59:59 DUTCH Outpatient ALCIDES SEPULVEDA PHD [id number] 08/21/2013 15:57:00 08/21/2013 23:59:59 DUTCH Outpatient ALCIDES SEPULVEDA PHD [id number] 08/20/2013 09:49:00 08/20/2013 23:59:59 DUTCH Outpatient DAVID ALAN MD [id number] 04/28/2013 15:54:00 04/28/2013 23:59:59 DUTCH Outpatient ALCIDES SEPULVEDA PHD [id number] 04/10/2013 14:55:00 04/10/2013 23:59:59 DUTCH Outpatient ALCIDES SEPULVEDA PHD [id number] 09/19/2012 11:27:00 09/19/2012 23:59:59 CLS Outpatient SOLEDAD MAYER DO [id number] 08/04/2012 14:29:00 08/04/2012 23:59:59 [place] [id number] 08/31/2011 14:27:00 08/31/2011 23:59:59 CLS Outpatient [id number] 08/31/2011 14:27:00 08/31/2011 23:59:59 CLS Outpatient [id number] 03/04/2013 14:49:00 Document Registration [id number] 01/06/2013 09:59:00 Document Registration [id number] 11/19/2012 12:48:00 Document Registration [id number] 02/17/2015 10:02:59 ACT Document Registration [id number] 08/27/2018 07:20:00 08/27/2018 23:59:59 CLS Outpatient SUZETTE COCHRAN MD [facility] CARD CAD, CHF, HTN, HYPERLIPIDEMIA [id number] 08/07/2018 12:33:00 08/07/2018 23:59:59 CLS Preadmit WILL MALONE APRN [facility] SLEEP SLEEP APNEA,CHF [id number] 07/19/2018 19:59:00 07/20/2018 06:15:00 DIS Outpatient WILL MALONE APRN [facility] SLEEP SLEEP APNEA [id number] 06/06/2018 16:54:00 06/06/2018 17:30:00 DIS Emergency ANKITA STOVALL [employer] [facility] ER POST OP/INCISION OOZING [id number] 05/31/2018 12:55:00 06/04/2018 17:30:00 DIS Inpatient LISSA SHERMAN, KEVIN Vázquez [facility] 4TH LLL PNEUMONIA,ELEVATED LFT,FLUID OVERLOAD [id number] 05/27/2018 08:50:00 05/27/2018 10:49:00 DIS Emergency MARICHUY WILLIS MD [facility] ER ANXIETY;SOB [id number] 05/13/2018 15:20:00 05/18/2018 13:25:00 DIS Inpatient ANGELITO WAN DO [facility] 4TH CECAL VOLVULUS,UTI [id number] 01/13/2018 11:19:00 01/13/2018 23:59:59 CLS Outpatient SUZETTE COCHRAN MD [facility] CARD I25.10 CAD [id number] 01/17/2017 12:51:00 01/17/2017 23:59:59 CLS Outpatient SUZETTE COCHRAN MD [facility] CARD CAD I25.10 [id number] 09/05/2016 11:05:00 09/05/2016 23:59:59 CLS Outpatient ETHEL MG DO [facility] LAB N18.3 [id number] 09/21/2015 11:55:00 09/21/2015 18:55:00 DIS Outpatient SUZETTE COCHRAN MD [facility] CATH UNSTABLE ANGINA, CAD, HTN,HLP [id number] 02/17/2015 10:02:00 02/17/2015 23:59:59 CLS Outpatient ESA BETTS [facility] CARD CAD,CHF,MODESTA, HLP [id number] 06/15/2014 11:44:00 06/15/2014 23:59:59 CLS Outpatient ESA BETTS [facility] CARD CAD,CHF,HTN [id number] 05/08/2014 12:07:00 05/09/2014 13:15:00 DIS Inpatient SUZETTE COCHRAN MD [facility] CSD HYPOTENSION ATYPICAL CHEST PAIN [id number] 10/22/2013 09:21:00 10/22/2013 23:59:59 CLS Outpatient ROSITA CRUZ [facility] RAD SCREENING,POST MENAPAUSAL STATUS [id number] 06/09/2013 19:51:00 06/10/2013 06:25:00 DIS Outpatient RAY GAMBOA MD [facility] SLEEP KRISTAL [id number] 04/29/2013 20:58:00 04/30/2013 07:10:00 DIS Outpatient SOLEDAD MAYER DO [facility] SLEEP KRISTAL,INSOMNIA [id number] 04/01/2013 21:23:00 04/01/2013 23:28:00 DIS Emergency JULIANO RIZO, TRUDY Castorena [facility] ER FALL/RIGHT RING FINGER INJURY [id number] 03/19/2013 19:06:00 03/19/2013 23:59:59 CLS Outpatient [id number] 01/31/2013 11:45:00 01/31/2013 23:59:59 CLS Outpatient [id number] 09/10/2018 08:00:00 PEN Preadmit DIMAS SHERMAN, SUZETTE Hardy [facility] CATH ABN STRESS TEST, CAD, CHF, HTN, HLP [id number] 12/03/2016 00:00:00 Document Registration [id number] 09/19/2015 12:20:00 Document Registration [id number] 09/19/2015 12:20:00 Document Registration [id number] 09/10/2012 08:52:00 Document Registration [id number] 09/02/2012 10:25:00 Document Registration [id number] 05/21/2012 11:55:00 Document Registration [id number] 05/20/2012 08:59:00 Document Registration [id number] 04/25/2012 21:02:00 Document Registration [id number] 07/31/2011 13:00:00 Document Registration [id number] 07/31/2011 12:57:00 Document Registration [id number] 06/01/2011 09:17:00 Document Registration [id number] 04/26/2011 15:23:00 Document Registration [id number] 04/20/2011 06:50:00 Document Registration [id number] 03/06/2011 07:04:00 Document Registration [id number] 06/22/2010 09:22:00 Document Registration [id number] 05/09/2010 09:42:00 Document Registration [id number] 04/24/2010 06:30:00 Document Registration [id number] 03/30/2010 06:39:00 Document Registration [id number] 07/30/2018 10:40:00 07/30/2018 23:59:59 CLS [facility]
[2018-09-10] MEDS ORDERED: NS IV 1000 ML 1,000 ML IV SCH ×2 (06:45→08:50)
[2018-09-10 07:05] LABS: HEMOGLOBIN 12.7 G/DL (11.5-16.0); MEAN PLATELET VOLUME 9.2 FL (7.4-10.4); WHITE BLOOD COUNT 5.9 10^3/uL (4.3-11.0)
[2018-09-10 07:14] LABS: PROTHROMBIN TIME PATIENT 13.2 SEC (12.2-14.7)
[2018-09-10 07:26] LABS: BILIRUBIN,TOTAL 0.6 MG/DL (0.1-1.0); CALCIUM 9.4 MG/DL (8.5-10.1); CREATININE SERUM 1.58 MG/DL (0.60-1.30); POTASSIUM 3.3 MMOL/L (3.6-5.0); TOTAL PROTEIN 6.7 GM/DL (6.4-8.2)
[2018-09-10 07:30] LABS: BILIRUBIN,URINE NEGATIVE (NEGATIVE); CLARITY,URINE CLEAR; COLOR,URINE YELLOW; GLUCOSE, URINE (UA) NEGATIVE (NEGATIVE); KETONES,URINE NEGATIVE (NEGATIVE); LEUKOCYTE ESTERASE ,URINE NEGATIVE (NEGATIVE); NITRITE,URINE NEGATIVE (NEGATIVE); PH,URINE 6 (5-9); PROTEIN,URINE NEGATIVE (NEGATIVE); UROBILINOGEN,URINE NORMAL (NORMAL)
[2018-09-10] MEDS ORDERED: ENAL2.5T37 PO (07:33)
[2018-09-10] MEDS ORDERED: MIRT7.5T8 PO (07:33)
--- NOTE | 2018-09-10 07:37 | Diagnostic Imaging Report ---
INDICATION: Abnormal stress test, coronary artery disease, CABG. COMPARISON: 06/02/2018 FINDINGS: Single view of the chest demonstrates stable cardiac enlargement. Lungs remain clear. There is no pneumothorax or effusion. Sternal wires midline. Osseous structures are age-appropriate. IMPRESSION: Stable cardiac enlargement without pulmonary edema or infiltrate. Dictated by: Dictated on workstation # [id number]
[2018-09-10] MEDS ORDERED: fentaNYL INJECTION 100 MCG/2 ML AMP ONE (07:45)
[2018-09-10] MEDS ORDERED: MIDAZOLAM 5 MG/5 ML (VERSED) VIAL ONE (07:45)
[2018-09-10 07:50] LABS: BACTERIA,URINE TRACE /HPF
--- NOTE | 2018-09-10 08:49 | Cardiac Procedure Note-CS/ASA ---
Pre-Procedure Note Pre-Op Procedure Note H&P Reviewed The H&P was reviewed, patient examined and no changes noted. Date H&P Reviewed: Sep 10, 2018 Time H&P Reviewed: 08:49 Conscious Sedation Pre-Proced Time 08:49 ASA Score 3 For ASA 3 and 4: Consider anesthesia and medical clearance. Also, for patients with a history of failed moderate sedation consider anesthesia. Airway Lungs Heart ASA score ASA 1: a normal healthy patient ASA 2: a patient with a mild systemic disease (mid diabetes, controlled hypertension, obesity x ASA 3: a patient with a severe systemic disease that limits activity (angina , COPD, prior Myocardial infarction) ASA 4: a patient with an incapacitating disease that is a constant threat to life (CHF, renal failure) ASA 5: a moribund patient not expected to survive 24 hrs. (ruptured aneurysm) ASA 6: a declared brain- patient whose organs are being harvested. For emergent operations, add the letter E after the classification Mallampati Classification Grade 3 Sedation Plan Analgesia, Amnesia, Plan communicated to team members, Discussed options with patient/fam, Discussed risks with patient/fam The patient is an appropriate candidate to undergo the planned procedure, sedation, and anesthesia. The patient immediately re-assessed prior to indication. SUZETTE COCHRAN MD Sep 10, 2018 08:49
--- NOTE | 2018-09-10 08:55 | Discharge Inst-Post CATH ---
Discharge Inst-CATH/EP Post Cardiac Cath/EP D/C Inst Follow Up/Plan Appointment with Dr Waters's office in 2-4 weeks CARDIAC CATH DISCHARGE INSTRUCTIONS *Hold Metformin for 48 hours post heart cath. ACTIVITY * Go Home directly and rest. * Limit activity of the leg (or wrist if it was used) for 7 days including aerobics, swimming, jogging, bicycling, etc. * Restrict stair-climbing for 7 days if possible, if not, climb up with your non -cath leg, then bring together on the same step. * Avoid lifting, pushing, pulling or excessive movement of the affected extremity for 7 days. * Customary sexual activity may be resumed after 2 days-use caution not to use a position that strains or causes pain to the affected extremity. * No driving for 24 hours. * NO SMOKING. * Avoid straining for bowel movements for 7 days. * Gentle walking on level ground is allowed. * Returning to work will depend on the type of procedure and the results. Your doctor will discuss this with you. CALL YOUR DOCTOR FOR ANY OF THE FOLLOWING: *If bleeding from the puncture site occurs- Apply gentle pressure to site with clean cloth and call your doctor or EMS. * If a knot or lump forms under the skin, increases in size, or causes pain. * If bruising appears to be worsening or moving further down your leg instead of disappearing. * Temperature above 101 F. CARE OF YOUR GROIN INCISION; * Bruising or purple discoloration of the skin near the puncture site is common. * You may shower only, no bathtub bathing for 5 days. Be careful to avoid slipping as your leg may feel stiff. * If a closure device was used on your femoral artery, please see the attached guide regarding care of the device and your leg. * Leave the dressing on, until removed by office staff. CARE OF YOUR WRIST INCISION; * Bruising or purple discoloration of the skin near the puncture site is common. * You may shower. * DO NOT submerge wrist. * Leave dressing on, until removed by office staff.. SUZETTE WATERS MD Sep 10, 2018 08:55
[2018-09-10] MEDS ORDERED: PATIENT MAY USE OWN MEDS, ALL PO SCH (09:00)
--- NOTE | 2018-09-10 09:00 | Cardiac Cath Report ---
Cardiac Cath Report Physician (s)/Project Management (s) Physician SUZETTE COCHRAN MD Pre-Procedure Diagnosis Pre-Procedure Diagnosis: coronary artery disease Post-Procedure Note Procedure Start Date: Sep 10, 2018 Name of Procedure: left heart catheterization Vein graft angiogram LALA angiogram Left ventriculogram Findings/Procedure Note PROCEDURE NOTE: 73-year-old lady with history of coronary artery disease, history of CABG, had abnormal stress test with anterior wall ischemia, had deterioration in the left ventricular systolic function, she was scheduled for cardiac catheterization possible PTCA After explaining the procedure to the patient, all pros and cons were explained , all questions were answered. The patient signed the consent and then she was placed on the cardiac catheterization laboratory. Groin was prepped SL fashion local anesthesia was used. Sheath placed in the Right femoral artery. Rosalie right and left catheter were used to access the coronary system.Vein Graft evaluated. LALA evaluated, MP1 catheter was used to evaluate the vein graft to the obtuse marginal branch. Pigtail was used to access the left ventricular cavity. Left ventriculogram was done At the end of the procedure the sheath was removed. Closure device was used FINDINGS: Hemodynamics LV 114/14, end-diastolic pressure 14 Aorta 111/45 mean of 56 ANATOMY: Left Main subtotally occluded, deterioration compared to the previous study of 2016 Left Anterior Descending is occluded, LALA to the LAD is patent filling retrograde the LAD and diagonal system Left Circumflex is occluded proximally, patient had previously small first and second obtuse marginal branch that were patent, PO2 be occluded at this time Right Coronory Artery is occluded, the vein graft to the right coronary artery is patent LALA to LAD is patent with good flow in the LAD system filling retrograde the first diagonal Vein Graft evaluation showed 3 vein graft: Vein graft to the left PDA/obtuse marginal is patent, the first obtuse marginal branch is not receiving collateral from this bypass Vein graft to the diagonal artery is known to be occluded Vein graft to the right PDA is patent and filling the right coronary artery territory LV Gram was done showing dilated left ventricle with diffuse left ventricular hypokinesia with estimated ejection fraction 20 percent CONCLUSION: 1. Patent LALA to LAD, vein graft to the right PDA and vein graft to the left PDA/obtuse marginal branch 2. Known to have occluded vein graft to diagonal artery 3. Left main coronary artery is subtotally occluded, deterioration compared to the previous study of 2016, not amendable to intervention with worsening flow in the first obtuse marginal branch that is fairly small artery less than 1 mm in diameter 3. Deterioration in the left ventricular systolic function with ejection fraction 20 percent DISCUSSION AND RECOMMENDATION: continue to maximize medical therapy Anesthesia Type: Conscious Sedation Estimated blood loss (mL): 20 ml Contrast Amount: 65 ml Total Radiation Dose: 259 mGy Post-Procedure Diagnosis Post-operative diagnosis: Coronary artery disease Congestive heart failure, chronic compensated left ventricular systolic dysfunction, ischemic cardiomyopathy Hypertension Hyperlipidemia Chronic kidney disease stage III SUZETTE COCHRAN MD Sep 10, 2018 09:00
--- NOTE | 2018-09-10 13:29 | NUR ---
RIGHT AC IV REMOVED, TIP INTACT.
== END 2018-09-10 13:40 | disposition home or self-care (01) ==
LOC: CATH 06:36 → SDC 09:11 → CATH 13:40
PROVIDERS: ATTEND Internal Medicine Cardiovascular Disease
DX: I25.10 Atherosclerotic heart disease of native coronary artery without angina pectoris (principal); I50.22 Chronic systolic (congestive) heart failure; I13.0 Hypertensive heart and chronic kidney disease with heart failure and stage 1 through stage 4 chronic kidney disease, or unspecified chronic kidney disease; E78.5 Hyperlipidemia, unspecified; F32.9 Major depressive disorder, single episode, unspecified; I65.23 Occlusion and stenosis of bilateral carotid arteries; I34.0 Nonrheumatic mitral (valve) insufficiency; Z88.5 Allergy status to narcotic agent; Z88.0 Allergy status to penicillin; Z79.899 Other long term (current) drug therapy; Z95.1 Presence of aortocoronary bypass graft
CPT/HCPCS: 36415; 36430; 71045; 80053; 80061; 81000; 85027; 85610; 85730; 87081; 93459

== ENCOUNTER 2018-09-27 19:54 | Outpatient (CLI) | payer MEDICARE, OTHER ==
[~2018-09-27 19:54] MED LIST changes: +ENAL2.5T37 PO; +MIRT7.5T8 PO
== END 2018-09-28 06:05 | disposition home or self-care (01) ==
LOC: SLEEP 19:54
PROVIDERS: ATTEND Nurse Practitioner Family
DX: G47.30 Sleep apnea, unspecified (principal); I50.9 Heart failure, unspecified; M79.7 Fibromyalgia
CPT/HCPCS: 95811

== ENCOUNTER → 2019-01-26 | Outpatient (CLI) | payer MEDICARE, OTHER ==
--- NOTE | 2019-01-27 15:23 | Diagnostic Imaging Report ---
INDICATION: Routine screening. COMPARISON: 10/22/2013. TECHNIQUE: 2D and 3D bilateral screening mammography was performed with CAD. FINDINGS: Both breasts are heterogeneously dense, limiting the sensitivity of mammography. The previously noted benign parenchymal densities in both breasts appear stable. No new mass or malignant appearing microcalcifications are seen. The axillae are unremarkable. IMPRESSION: No mammographic features suspicious for malignancy are identified. ACR BI-RADS Category 2: Benign findings. Result letter will be mailed to the patient. Note: At least 10% of breast cancer is not imaged by mammography. Dictated by: Dictated on workstation # [id number]
== END ==
LOC: RAD 14:25
PROVIDERS: ATTEND Internal Medicine
DX: Z12.31 Encounter for screening mammogram for malignant neoplasm of breast (principal); N18.3 Chronic kidney disease, stage 3 (moderate); I25.10 Atherosclerotic heart disease of native coronary artery without angina pectoris; F33.8 Other recurrent depressive disorders; G47.33 Obstructive sleep apnea (adult) (pediatric)
CPT/HCPCS: 77067

== ENCOUNTER → 2019-02-06 | Outpatient (CLI) | payer MEDICARE, OTHER ==
--- NOTE | 2019-02-06 13:04 | Diagnostic Imaging Report ---
PROCEDURE: US Renal Bilateral. TECHNIQUE: Multiple real-time grayscale images were obtained over the kidneys in various projections bilaterally. INDICATION: Chronic kidney disease. FINDINGS: No comparison available. The kidneys are mildly atrophic. The right kidney measures 8.1 x 3.8 x 3.9 cm. The left kidney measures 8.9 x 4.5 x 4.2 cm. The echogenicity of both kidneys is normal. No hydronephrosis is seen. Left kidney is difficult to evaluate due to overlying bowel gas. No solid lesions are seen in either kidney. Urinary bladder is normal. IMPRESSION: 1. Mildly atrophic kidneys without focal lesion or hydronephrosis. Dictated by: Dictated on workstation # [id number]
== END ==
LOC: RAD 10:29
PROVIDERS: ATTEND Internal Medicine Nephrology
DX: N18.3 Chronic kidney disease, stage 3 (moderate) (principal)
CPT/HCPCS: 76770

== ENCOUNTER 2019-02-18 17:12 | Emergency (ER) | payer MEDICARE, OTHER ==
[~2019-02-18] VITALS: Ht 160 cm; Wt 67.1 kg
[~2019-02-18 17:12] MED LIST changes: -DULO60CA58 PO; +DULO60CA59 PO; -OMEP20CA12 PO; +OMEP20CA13 PO
[2019-02-18] MEDS ORDERED: TETANUS,DIPTH,PERTUSS P/F (BOOSTRIX) 0.5 ML VIAL IM ONE ×3 (17:20→18:00)
--- NOTE | 2019-02-18 17:44 | ED Upper Extremity ---
General Chief Complaint: Laceration Stated Complaint: L THUMB LAC Nursing Triage Note: Patient states that she was trying to pry 2 frozen boxes apart with a knife when the knife slipped and cut her left thumb. Minimal amount of bleeding is noted. Patient does not report any pain at this time. Nursing Sepsis Screen: No Definite Risk Source: patient Exam Limitations: no limitations History of Present Illness Date Seen by Provider: Feb 18, 2019 Time Seen by Provider: 17:39 Initial Comments To ER per private vehicle with reports of a laceration to the pad of the left thumb. She was trying to pry apart 2 frozen dinners with a knife when the knife slipped. Her tetanus shot is not up-to-date. Onset: just prior to arrival Severity: moderate Pain/Injury Location: left thumb Method of Injury: unknown Modifying Factors: Worse With Movement Allergies and Home Medications Allergies Coded Allergies: codeine (Verified Allergy, Unknown, 05/13/18) nausea/faints olanzapine (Verified Allergy, Unknown, 08/03/08) cefadroxil (Verified Adverse Reaction, Mild, MAKES HER DIZZY AND FAINTS, 05/15/18) faints Home Medications Aspirin 81 Mg Tablet.dr, 81 MG PO DAILY Prescribed by: THEA BECERRA on 06/04/18 1048 Atorvastatin Calcium 80 Mg Tablet, 80 MG PO HS, (Reported) Brexpiprazole 1 Mg Tablet, 1 MG PO HS, (Reported) Cholecalciferol (Vitamin D3) 5,000 Unit Capsule, 5,000 UNIT PO HS, (Reported) Colestipol HCl 1 Gm Tablet, 1 GM PO BID, (Reported) Cyanocobalamin (Vitamin B-12) 1,000 Mcg Tablet, 1,000 MCG PO HS, (Reported) Duloxetine HCl 60 Mg Capsule.dr, 60 MG PO BID, (Reported) Enalapril Maleate 2.5 Mg Tablet, 2.5 MG PO DAILY, (Reported) Furosemide 40 Mg Tablet, 40 MG PO DAILY Prescribed by: THEA BECERRA on 06/04/18 1057 Gabapentin 600 Mg Tablet, 600 MG PO BID, (Reported) Levothyroxine Sodium 88 Mcg Tablet, 88 MCG PO HS, (Reported) Metoprolol Tartrate 25 Mg Tablet, 25 MG PO BID, (Reported) Mirtazapine 7.5 Mg Tablet, 7.5 MG PO DAILY, (Reported) Mv,Ca,Iron,Min/FA/Phytosterol 1 Each Tablet, 1 TAB PO HS, (Reported) Niacin 1,000 Mg Tab.er.24h, 1,000 MG PO HS, (Reported) [place]-3 Acid Ethyl Esters 1 Gm Capsule, 2 GM PO BID, (Reported) TAKES 2 (1GM) CAPSULES Omeprazole 20 Mg Capsule.dr, 20 MG PO HS, (Reported) Potassium Chloride 10 Meq Capsule.er, 10 MEQ PO DAILY Prescribed by: THEA BECERRA on 06/04/18 1057 Patient Home Medication List Home Medication List Reviewed: Yes Review of Systems Constitutional: see HPI EENTM: see HPI Respiratory: no symptoms reported Cardiovascular: no symptoms reported Genitourinary: no symptoms reported Musculoskeletal: no symptoms reported Skin: see HPI Psychiatric/Neurological: No Symptoms Reported Past Qvcloqd-Tioydt-Xkhdys Hx Patient Social History Alcohol Use: Denies Use Recreational Drug Use: No Smoking Status: Never a Smoker 2nd Hand Smoke Exposure: No Recent Foreign Travel: No Contact w/Someone Who Travel: No Recent Infectious Disease Expo: No Recent Hopitalizations: Yes Immunizations Up To Date Date of Pneumonia Vaccine: Mar 31, 2013 Date of Influenza Vaccine: May 15, 2018 Seasonal Allergies Seasonal Allergies: No Past Medical History Surgeries: Yes (Hiatal Hernia, Breast BX, Bladder surgery x 3 (had mesh sling, tie up, ) Abdominal, Bladder Surgery, CABG, Hysterectomy Respiratory: Yes Sleep Apnea Currently Using CPAP: Yes (SLEEP APNEA) Currently Using BIPAP: No Cardiac: Yes Coronary Artery Disease, High Cholesterol, Hypertension Neurological: No 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 Disorders: No 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 Genitourinary: Yes Bladder Infection, Renal Failure, UTI-Chronic Gastrointestinal: Yes Diverticulosis, Irritable Bowel Musculoskeletal: Yes Arthritis, Fibromyalgia Endocrine: Yes Hypothyroidsim HEENT: Yes Cataract Loss of Vision: Denies Cancer: No Psychosocial: Yes Anxiety, Depression Integumentary: No Blood Disorders: No Family Medical History Alzheimer's disease (mother) Cardiovascular disease (mother and father) Carotid artery stenosis (father) Hypercholesterolemia (mother and father) Hypertension Myocardial infarction (mother and father) No Pertinent Family Hx Physical Exam Vital Signs Vital Signs - First Documented 02/18/19 17:17 Temp 98.0 Pulse 71 Resp 18 B/P (MAP) 118/64 (82) Pulse Ox 97 O2 Delivery Room Air Capillary Refill : Less Than 3 Seconds Height, Weight, BMI Height: 5'3.00" Weight: 148lbs. 0oz. 67.888175ie; 23.7 BMI Method:Stated General Appearance: WD/WN, no apparent distress HEENT: PERRL/EOMI, normal ENT inspection Respiratory: no respiratory distress, no accessory muscle use Shoulder: normal inspection, non-tender Elbow/Forearm: normal inspection, non-tender Wrist: Yes normal inspection, Yes non-tender Hand: Left, laceration (2 cm laceration to the pad of the left thumb that does not cross the IP joint and runs and a distal to proximal orientation. Active bleeding easily controlled.) Neurologic/Tendon: normal sensation, normal motor functions Neurologic/Psychiatric: alert, normal mood/affect, oriented x 3 Skin: normal color, warm/dry Procedures/Interventions Wound Location: Upper Extremities Wound Length (cm): 2 Wound's Depth, Shape: linear, sub Q Wound Explored: clean Irrigated w/ Saline (ccs): 30 Anesthesia: 1% Lidocaine Suture: Ethlion Suture Size: 5-0 Number of Sutures: 7 Layer Closure?: 1 Number Deep Layer Sutures: 0 Progress/Results/Core Measures Results/Orders Vital Signs/I&O 02/18/19 17:17 Temp 98.0 Pulse 71 Resp 18 B/P (MAP) 118/64 (82) Pulse Ox 97 O2 Delivery Room Air Blood Pressure Mean: 82 Departure Impression Primary Impression: Finger laceration Qualified Codes: S61.012A - Laceration without foreign body of left thumb without damage to nail, initial encounter Disposition: 01 HOME, SELF-CARE Condition: Stable Departure-Patient Inst. Decision time for Depature: 15:07 Referrals: ETHEL MG DO (PCP/Family) Primary Care Physician Patient Instructions: Laceration Repair With Stitches (DC) Add. Discharge Instructions: 1. You can shower leading water run over this starting tonight. Do not soak it in water such as a dish sink hot tub bathtub swimming pool leg ponder stream until the stitches are removed. The stitches should be removed here in the emergency room at no charge, return here in about 7 days. You can take the bandage off tomorrow and leave it open to air if it's not bleeding. Expect to have some swelling and bruising, come back for any redness or red streaks spreading up the hand. All discharge instructions reviewed with patient and/or family. Voiced understanding. ANKITA STOVALL APRN Feb 18, 2019 17:44
[2019-02-18 17:55] VITALS: BP 118/64
== END 2019-02-18 17:55 | disposition home or self-care (01) ==
LOC: EDUNIT# 17:12 → ER 17:13
DX: S61.012A Laceration without foreign body of left thumb without damage to nail, initial encounter (principal); I10 Essential (primary) hypertension; I25.10 Atherosclerotic heart disease of native coronary artery without angina pectoris; F32.9 Major depressive disorder, single episode, unspecified; F41.9 Anxiety disorder, unspecified; E78.00 Pure hypercholesterolemia, unspecified; G47.30 Sleep apnea, unspecified; K58.9 Irritable bowel syndrome, unspecified; M79.7 Fibromyalgia; E03.9 Hypothyroidism, unspecified; Z99.89 Dependence on other enabling machines and devices; Z87.19 Personal history of other diseases of the digestive system; Z88.5 Allergy status to narcotic agent; Z88.8 Allergy status to other drugs, medicaments and biological substances; Z88.1 Allergy status to other antibiotic agents; Z79.82 Long term (current) use of aspirin; Z90.710 Acquired absence of both cervix and uterus; Z95.1 Presence of aortocoronary bypass graft; Z82.49 Family history of ischemic heart disease and other diseases of the circulatory system; W26.0XXA Contact with knife, initial encounter
CPT/HCPCS: 12002; 90471; 90715

== ENCOUNTER → 2019-02-21 | Emergency (ER) | payer MEDICARE, OTHER ==
[~2019-02-21] VITALS: Ht 160 cm; Wt 67.1 kg
[2019-02-21 10:47] VITALS: BP 105/44
--- NOTE | 2019-02-21 10:59 | ED Lower Extremity ---
General Chief Complaint: Lower Extremity Stated Complaint: FALL - R KNEE PAIN Source: patient Exam Limitations: no limitations History of Present Illness Date Seen by Provider: Feb 21, 2019 Time Seen by Provider: 10:57 Initial Comments To ER with reports of right anterior knee pain. States that she tripped and fell at home, has an abrasion to the right knee and difficulty with weightbearing due to pain in the knee, the pain is tolerable as long she doesn't twist or rotate on the knee. Onset: just prior to arrival Severity: moderate Pain/Injury Location: right knee Method of Injury: fell Modifying Factors: Worse With Movement Allergies and Home Medications Allergies Coded Allergies: codeine (Verified Allergy, Unknown, 05/13/18) nausea/faints olanzapine (Verified Allergy, Unknown, 08/03/08) cefadroxil (Verified Adverse Reaction, Mild, MAKES HER DIZZY AND FAINTS, 05/15/18) faints Home Medications Aspirin 81 Mg Tablet.dr, 81 MG PO DAILY Prescribed by: THEA BECERRA on 06/04/18 1048 Atorvastatin Calcium 80 Mg Tablet, 80 MG PO HS, (Reported) Brexpiprazole 1 Mg Tablet, 1 MG PO HS, (Reported) Cholecalciferol (Vitamin D3) 5,000 Unit Capsule, 5,000 UNIT PO HS, (Reported) Colestipol HCl 1 Gm Tablet, 1 GM PO BID, (Reported) Cyanocobalamin (Vitamin B-12) 1,000 Mcg Tablet, 1,000 MCG PO HS, (Reported) Duloxetine HCl 60 Mg Capsule.dr, 60 MG PO BID, (Reported) Enalapril Maleate 2.5 Mg Tablet, 2.5 MG PO DAILY, (Reported) Furosemide 40 Mg Tablet, 40 MG PO DAILY Prescribed by: THEA BECERRA on 06/04/18 1057 Gabapentin 600 Mg Tablet, 600 MG PO BID, (Reported) Levothyroxine Sodium 88 Mcg Tablet, 88 MCG PO HS, (Reported) Metoprolol Tartrate 25 Mg Tablet, 25 MG PO BID, (Reported) Mirtazapine 7.5 Mg Tablet, 7.5 MG PO DAILY, (Reported) Mv,Ca,Iron,Min/FA/Phytosterol 1 Each Tablet, 1 TAB PO HS, (Reported) Niacin 1,000 Mg Tab.er.24h, 1,000 MG PO HS, (Reported) Preston-3 Acid Ethyl Esters 1 Gm Capsule, 2 GM PO BID, (Reported) TAKES 2 (1GM) CAPSULES Omeprazole 20 Mg Capsule.dr, 20 MG PO HS, (Reported) Potassium Chloride 10 Meq Capsule.er, 10 MEQ PO DAILY Prescribed by: THEA BECERRA on 06/04/18 1057 Patient Home Medication List Home Medication List Reviewed: Yes Review of Systems Constitutional: see HPI EENTM: see HPI Respiratory: no symptoms reported Cardiovascular: no symptoms reported Genitourinary: no symptoms reported Musculoskeletal: see HPI Skin: no symptoms reported Psychiatric/Neurological: No Symptoms Reported Past Fxsrcut-Vaausm-Xerlro Hx Patient Social History Alcohol Use: Denies Use Recreational Drug Use: No Smoking Status: Never a Smoker 2nd Hand Smoke Exposure: No Recent Foreign Travel: No Contact w/Someone Who Travel: No Recent Hopitalizations: Yes Immunizations Up To Date Date of Pneumonia Vaccine: Mar 31, 2013 Date of Influenza Vaccine: May 15, 2018 Seasonal Allergies Seasonal Allergies: No Past Medical History Surgeries: Yes (Hiatal Hernia, Breast BX, Bladder surgery x 3 (had mesh sling, tie up, ) Abdominal, Bladder Surgery, CABG, Hysterectomy Respiratory: Yes Sleep Apnea Currently Using CPAP: Yes (SLEEP APNEA) Currently Using BIPAP: No Cardiac: Yes Coronary Artery Disease, High Cholesterol, Hypertension Neurological: No 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 Disorders: No 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 Genitourinary: Yes Bladder Infection, Renal Failure, UTI-Chronic Gastrointestinal: Yes Diverticulosis, Irritable Bowel Musculoskeletal: Yes Arthritis, Fibromyalgia Endocrine: Yes Hypothyroidsim HEENT: Yes Cataract Loss of Vision: Denies Cancer: No Psychosocial: Yes Anxiety, Depression Integumentary: No Blood Disorders: No Family Medical History Alzheimer's disease (mother) Cardiovascular disease (mother and father) Carotid artery stenosis (father) Hypercholesterolemia (mother and father) Hypertension Myocardial infarction (mother and father) No Pertinent Family Hx Physical Exam Vital Signs Capillary Refill : Height, Weight, BMI Height: 5'3.00" Weight: 148lbs. 0oz. 67.858030dl; 23.7 BMI Method:Stated General Appearance: WD/WN, no apparent distress HEENT: PERRL/EOMI, normal ENT inspection Respiratory: no respiratory distress, no accessory muscle use Hips: bilateral hip non-tender, bilateral hip normal inspection, bilateral hip normal range of motion Legs: bilateral leg non-tender, bilateral leg normal inspection, bilateral leg normal range of motion Knees: right knee pain, right knee other (abrasion to the right knee without palpable effusion or deformity) Ankles: bilateral ankle non-tender, bilateral ankle normal inspection, bilateral ankle normal range of motion Feet: bilateral foot non-tender, bilateral foot normal inspection, bilateral foot normal range of motion Skin: normal color, warm/dry Procedures/Interventions Suture Size: 5-0 Progress/Results/Core Measures Results/Orders My Orders Orders - ANKITA STOVALL APRN Knee, Right, 3 Views (02/21/19 10:56) Departure Impression Primary Impression: Contusion of right knee Qualified Codes: S80.01XA - Contusion of right knee, initial encounter Disposition: HOME, SELF-CARE Condition: Stable Departure-Patient Inst. Decision time for Depature: 10:59 Referrals: ETHEL MG DO (PCP/Family) Primary Care Physician Patient Instructions: Contusion (DC) Add. Discharge Instructions: 1. Follow-up with your doctor next week. If you have persistent pain you may need an MRI to evaluate the meniscus. All discharge instructions reviewed with patient and/or family. Voiced understanding. ANKITA STOVALL APRN Feb 21, 2019 10:59
--- NOTE | 2019-02-21 11:15 | Diagnostic Imaging Report ---
EXAM: KNEE, RIGHT, 3 VIEWS INDICATION: Fall. Right knee pain. COMPARISON: None. FINDINGS: No fracture or malalignment. No suspicious osteoblastic or lytic lesions. Surgical clips. IMPRESSION: No acute radiographic findings in the right knee. Dictated by: Dictated on workstation # [id number]
--- OUTSIDE RECORDS SUMMARY | 2019-02-21 19:15 | XMS REPORT ---
Author Author Migration, Doctor Organization [facility] Address Unknown Phone Unavailable Care Team Providers Care Doggy Daycare Activities Director Name Role Phone Migration, Doctor Unavailable Unavailable PROBLEMS Type Condition ICD9-CM Code ZSU23-VH Code Onset Dates Condition Status SNOMED Code Problem Panic disorder without agoraphobia 300.01 Active 31544113 Problem Major depressive disorder, recurrent episode, in partial or unspecified remission 296.35 Active 99204529 ALLERGIES Substance Reaction Event Type Date Status Cefadroxil Fainting Drug Allergy Oct, Active ENCOUNTERS Encounter Location Date Diagnosis [place] [id number] [place] [address] Jan, [place] [id number] [place] [address] Oct, Major depressive disorder, recurrent episode, in partial remission F33.41 and 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.1 [place] [id number] [place] [address] Jul, Major depressive disorder, recurrent episode, in partial remission F33.41 and 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.1 [place] [address], [place] [address] May, Major depressive disorder, recurrent episode, in partial remission F33.41 and 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.1 [place] [id number] [place] [address] Feb, Major depressive disorder, recurrent episode, in partial remission F33.41 [place] [id number] [place] [address] Jan, Major depressive disorder, recurrent episode, in partial remission F33.41 [place] [id number] [place] [address] Jan, Major depressive disorder, recurrent episode, in partial remission F33.41 and 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.1 [facility] [place] [address], [place] [address] Jan, [facility] [place] [id number] [address] Dec, Major depressive disorder, recurrent episode, in partial remission F33.41 [facility] [place] [id number], [place] [address] Dec, Major depressive disorder, recurrent episode, in partial remission F33.41 [facility] [place] [address], [place] [address] Oct, Major depressive disorder, recurrent episode, in partial remission F33.41 and 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.1 [facility] [place] [address], [place] [address] Jun, Major depressive disorder, recurrent episode, in partial remission F33.41 and 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.1 [facility] [place] [address], [place] [address] Feb, 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.1 [facility] [place] [id number], [place] [address] Jan, 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.1 [facility] [place] [address], [place] [address] Jan, Major depressive disorder, recurrent episode, in partial remission F33.41 ; 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.1 and 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 [facility] [place] [address], [place] [address] Dec, [facility] [place] [id number], [place] [address] Dec, [facility] [place] [address], [place] [address] Dec, Major depressive disorder, recurrent episode, in partial remission F33.41 [facility] [place] [address], [place] [address] November, [facility] [place] [id number] [place] [address] November, Major depressive disorder, recurrent episode, in partial remission F33.41 and 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.1 [facility] [place] [id number] [place] [address] Oct, Major depressive disorder, recurrent episode, in partial remission F33.41 and 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.1 [facility] [place] [id number] [place] [address] Jul, [facility] [place] [id number] [place] [address] Jul, [facility] [place] [id number] [place] [address] Jul, Major depressive disorder, recurrent episode, in partial remission F33.41 ; 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.1 and Other fpc (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) drug therapy Z79.899 [facility] [place] [id number] [place] [address] Jun, [facility] [place] [address], [place] [address] Apr, Major depression, recurrent 296.30 and Anxiety disorder, unspecified F41.9 [facility] [place] [address], [place] [address] Feb, [facility] [place] [address], [place] [address] Jan, [facility] [place] [id number] [place] [address] Dec, Major depressive disorder, recurrent, in partial remission F33.41 and Anxiety disorder, unspecified F41.9 [facility] [place] [id number] [place] [address] Dec, [facility] [place] [address], [place] [address] November, [facility] [place] [address], [place] [address] November, [facility] [place] [address], [place] [address] Oct, [facility] [place] [address], [place] [address] Aug, [facility] [place] [address], [place] [address] Jul, [facility] [place] [address], [place] [address] Jul, 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.1 ; Major depressive disorder, recurrent, moderate F33.1 and Anxiety disorder, unspecified F41.9 [facility] [place] [address], [place] [address] Jun, [facility] [place] [address], [place] [address] May, [facility] [place] [address], [place] [address] May, [facility] [place] [id number], [place] [address] Mar, [facility] [place] [id number], [place] [address] Feb, Major depression, recurrent 296.30 ; Chronic post-traumatic stress disorder (PTSD) 309.81 ; Anxiety 300.00 ; No condition on [place] II V71.09 and No condition on axis III V71. 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 ; No condition on [place] II V71.09 and No condition on axis III V71.09 [facility] [place] [address], [place] [address] 15 Dec, 2014 Depression, major, recurrent, moderate 296.32 ; 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 300.02 and Houston II diagnosis deferred 799.9 [facility] [place] [id number], [place] [address] 02 Dec, 2014 Major depressive disorder, recurrent episode, in partial or unspecified remission 296.35 and Panic disorder without agoraphobia 300.01 [facility] [place] [id number] [place] [address] 14 Oct, 2014 [facility] [place] [id number] [place] [address] Oct, [facility] [place] [id number] [place] [address] Mar, [facility] [place] [id number] [place] [address] Feb, [facility] [place] [address], [place] [address] Feb, [facility] [place] [address], [place] [address] Feb, [facility] [place] [address], [place] [address] Feb, [facility] [place] [address], [place] [address] Feb, [facility] [place] [address], [place] [address] Feb, [facility] [place] [id number], [place] [address] November, [facility] [place] [address], [place] [address] November, [facility] [place] [id number] [place] [address] November, [facility] [place] [facility] [address] [id number] [place] [address] November, [facility] [place] [facility] [address] [id number] [place] [address] November, [facility] [place] [facility] [address] [id number] [place] [address] November, [facility] [place] [facility] [address] [id number] [place] [address] Oct, [facility] [place] [facility] [address] [id number] [place] [address] Oct, [facility] [place] [facility] [address] [id number] [place] [address] Sep, [facility] [place] [facility] [address] [id number] [place] [address] Sep, [facility] [place] [facility] [address] [id number] [place] [address] Sep, [facility] [place] [facility] [address] [id number] [place] [address] Sep, [facility] [place] [facility] [address] [facility] [id number] [place] [address] Sep, [facility] [place] [facility] [address] [id number] [place] [address] Sep, [facility] [place] [facility] [address] [id number] [place] [address] Aug, [facility] [place] [facility] [address] [id number] [place] [address] Aug, [facility] [place] [facility] [address] [id number] [place] [address] Aug, [facility] [place] [facility] [address] [facility] [id number] [place] [address] Aug, [facility] [place] [facility] [address] [id number] [place] [address] Jul, [facility] [place] [facility] [address] [id number] [place] [address] Jul, [facility] [place] [facility] [address] [id number] [place] [address] Jul, [facility] [place] [facility] [address] [id number] [place] [address] Jul, [facility] [place] [facility] [address] [id number] [place] [address] Jul, [facility] [place] [facility] [address] [id number] [place] [address] Jul, [facility] [place] [facility] [address] [id number] [place] [address] Jun, [facility] [place] [facility] [address] [id number] [place] [address] Jun, [facility] [place] [facility] [address] [id number] [place] [address] Jun, [facility] [place] [facility] [address] [id number] [place] [address] Jun, [facility] [place] [facility] [address] [id number] [place] [address] May, [facility] [place] [facility] [address] [id number] [place] [address] May, [facility] [place] [facility] [address] [id number] [place] [address] May, [facility] [place] [facility] [address] [id number] [place] [address] May, [facility] [place] [facility] [address] [id number] [place] [address] Apr, [facility] [place] [facility] [address] [id number] [place] [address] Mar, [facility] [place] [facility] [address] [id number] [place] [address] Mar, [facility] [place] [facility] [address] [id number] [place] [address] Feb, [facility] [place] [facility] [address] [id number] [place] [address] Feb, [facility] [place] [facility] [address] [id number] [place] [address] Feb, [facility] [place] [facility] [address] [id number] [place] [address] Jan, [facility] [place] [facility] [address] [id number] [place] [address] Dec, [facility] [place] [facility] [address] [id number] [place] [address] Dec, [facility] [place] [facility] [address] [id number] [place] [address] Dec, [facility] [place] [facility] [address] [id number] [place] [address] Dec, [facility] [place] [facility] [address] [id number] [place] [address] November, [facility] [place] [facility] [address] [id number] [place] [address] Sep, [facility] [place] [facility] [address] [id number] [place] [address] Aug, [facility] [place] [facility] [address] [id number] [place] [address] Jul, [facility] [place] [facility] [address] [id number] [place] [address] Jul, [facility] [place] [facility] [address] [id number] [place] [address] Jun, [facility] [place] [facility] [address] [id number], [place] [address] Jun, [facility] [place] [id number], [place] [address] May, [facility] [place] [address] [facility] [id number], [place] [address] May, [facility] [place] [id number], [place] [address] Aug, [facility] [place] [address], [place] [address] Jun, [facility] [place] [address], [place] [address] May, [facility] [place] [address], [place] [address] May, [facility] [place] [address], [place] [address] May, [facility] [place] [address], [place] [address] May, [facility] [place] [id number], [place] [address] Apr, IMMUNIZATIONS No Known Immunizations SOCIAL HISTORY Never Assessed REASON FOR VISIT [place] [place] VITAL SIGNS MEDICATIONS Medication Instructions Dosage Frequency Start Date End Date Duration Status Cymbalta 60 mg take 1 capsule by Oral route 2 times per day Feb, Active Loratadine 10 mg 1 Tablet by Oral routePRNas needed Jul, Active Digoxin 250 mcg 1 Tablet by Oral route 2 times per day Feb, Active losartan 50 mg 1 Tablet by Oral route 1 time per day Jul, Active Furosemide 20 mg 1 Tablet by Oral route 1 time per day Jul, Active Neurontin 300 mg take 1 Tablet by Oral route 2 times per day at bedtime Feb, Active Colestid 1 gram 1 Tablet by Oral route 2 times per day As needed Sep, Active Aspirin 81 mg 1 Capsule by Oral route 1 time per day Feb, Active pantoprazole 40 mg 1 Tablet by Oral route 1 time per day Sep, Active dicyclomine 20 mg 1 Tablet by Oral route every 6 hours PRN IBS symptoms Feb, Active Cymbalta 30 mg 1 capsule by Oral route 1 time per day for 7 days at bedtime Jul, Active Metoprolol Tartrate 25 mg 1 Tablet by Oral route 2 times per day Jul, Active Klor-Con 8 mEq 1 Tablet by Oral route 2 times per day Jul, Active RESULTS No Results PROCEDURES No Known [...]
--- OUTSIDE RECORDS SUMMARY | 2019-02-21 19:15 | XMS REPORT ---
Author Author Migration, Doctor Organization [facility] Address Unknown Phone Unavailable Care Team Providers Care Circular Sawyer Helper Name Role Phone Migration, Doctor Unavailable Unavailable PROBLEMS Type Condition ICD9-CM Code REH00-YG Code Onset Dates Condition Status SNOMED Code Problem Panic disorder without agoraphobia 300.01 Active 90283379 Problem Major depressive disorder, recurrent episode, in partial or unspecified remission 296.35 Active [id number] ALLERGIES No Information ENCOUNTERS Encounter Location Date Diagnosis [place] [id number] [place] [address] Jan, [place] [address] [address] Oct, Major depressive disorder, recurrent episode, in partial remission F33.41 and 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.1 [place] [id number] [place] [address] Jul, Major depressive disorder, recurrent episode, in partial remission F33.41 and 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.1 [place] [id number] [place] [address] May, Major depressive disorder, recurrent episode, in partial remission F33.41 and 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.1 [place] [id number] [place] [address] Feb, Major depressive disorder, recurrent episode, in partial remission F33.41 [place] [id number] [place] [address] Jan, Major depressive disorder, recurrent episode, in partial remission F33.41 [place] [id number] [place] [address] Jan, Major depressive disorder, recurrent episode, in partial remission F33.41 and 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.1 [facility] [id number] [address] Jan, [facility] [id number] [address] Dec, Major depressive disorder, recurrent episode, in partial remission F33.41 [facility] [address] [address] Dec, Major depressive disorder, recurrent episode, in partial remission F33.41 [facility] [id number] [address] Oct, Major depressive disorder, recurrent episode, in partial remission F33.41 and 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.1 [facility] [address] [address] Jun, Major depressive disorder, recurrent episode, in partial remission F33.41 and 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.1 [facility] [address] [address] Feb, 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.1 [facility] [id number] [address] Jan, 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.1 [facility] [address] [address] Jan, Major depressive disorder, recurrent episode, in partial remission F33.41 ; 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.1 and 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 [facility] [address] [place] [address] Dec, [facility] [id number] [place] [address] Dec, [facility] [id number] [address] Dec, Major depressive disorder, recurrent episode, in partial remission F33.41 [facility] [address] [address] November, [facility] [id number] [place] [address] November, Major depressive disorder, recurrent episode, in partial remission F33.41 and 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.1 [facility] [id number] [address] Oct, Major depressive disorder, recurrent episode, in partial remission F33.41 and 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.1 [facility] [address] [address] Jul, [facility] [id number] [place] [address] Jul, [facility] [id number] [address] Jul, Major depressive disorder, recurrent episode, in partial remission F33.41 ; 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.1 and Other chcf (current) drug therapy Z79.899 [facility] [address] [address] Jun, [facility] [address] [address] Apr, Major depression, recurrent 296.30 and Anxiety disorder, unspecified F41.9 [facility] [address] [address] Feb, [facility] [address] [address] Jan, [facility] [address] [address] Dec, Major depressive disorder, recurrent, in partial remission F33.41 and Anxiety disorder, unspecified F41.9 [facility] [address] [address] Dec, [place] [id number] [address] November, [facility] [address] [address] November, [facility] [address] [address] Oct, [facility] [id number] [place] [address] Aug, [facility] [address] [address] Jul, [facility] [id number] [place] [address] Jul, 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.1 ; Major depressive disorder, recurrent, moderate F33.1 and Anxiety disorder, unspecified F41.9 [facility] [address] [address] Jun, [facility] [address] [address] May, [facility] [address] [address] May, [facility] [address] [address] Mar, [facility] [address] [address] Feb, Major depression, recurrent 296.30 ; Chronic post-traumatic stress disorder (PTSD) 309.81 ; Anxiety 300.00 ; No condition on Hoyt II V71.09 and No condition on axis III V71.09 [facility] [address] [address] Jan, Major depression 296.20 ; 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 300.02 ; 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 ; No condition on Hoyt II V71.09 and No condition on axis III V71.09 [facility] [address] [address] 15 Dec, 2014 Depression, major, recurrent, moderate 296.32 ; 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 300.02 and Hoyt II diagnosis deferred 799.9 [facility] [address] [address] 02 Dec, 2014 Major depressive disorder, recurrent episode, in partial or unspecified remission 296.35 and Panic disorder without agoraphobia 300.01 [facility] [address] [address] 14 Oct, 2014 [facility] [id number] [place] [address] Oct, [facility] [id number] [address] Mar, [facility] [address] [address] Feb, [facility] [address] [address] Feb, [facility] [address] [address] Feb, [facility] [address] [address] Feb, [facility] [address] [address] Feb, [facility] [address] [address] Feb, [facility] [address] [address] November, [facility] [address] [address] November, [facility] [id number] [address] November, [facility] [place] [facility] [address] [id number] [place] [address] November, [facility] [place] [facility] [address] [id number] [place] [address] November, [facility] [place] [facility] [address] [id number] [place] [address] November, [facility] [place] [facility] [address] [id number] [place] [address] Oct, [facility] [place] [facility] [address] [id number] [place] [address] Oct, [facility] [place] [facility] [address] [id number] [place] [address] Sep, [facility] [place] [facility] [address] [id number] [place] [address] Sep, [facility] [place] [facility] [address] [id number] [place] [address] Sep, [facility] [place] [facility] [address] [id number] [place] [address] Sep, [facility] [place] [facility] [address] [id number] [place] [address] Sep, [facility] [place] [facility] [address] [id number] [place] [address] Sep, [facility] [place] [facility] [address] [id number] [place] [address] Aug, [facility] [place] [facility] [address] [id number] [place] [address] Aug, [facility] [place] [facility] [address] [id number] [place] [address] Aug, [facility] [place] [facility] [address] [id number] [place] [address] Aug, [facility] [place] [facility] [address] [id number] [address] Jul, [facility] [address] [id number] [place] [address] Jul, [facility] [place] [facility] [address] [id number] [place] [address] Jul, [facility] [place] [facility] [address] [id number] [place] [address] Jul, [facility] [place] [facility] [address] [id number] [place] [address] Jul, [facility] [place] [facility] [address] [id number] [place] [address] Jul, [facility] [place] [facility] [address] [id number] [place] [address] Jun, [facility] [place] [facility] [address] [id number] [place] [address] Jun, [facility] [place] [facility] [address] [id number] [place] [address] Jun, [facility] [place] [facility] [address] [id number] [place] [address] Jun, [facility] [place] [facility] [address] [id number] [place] [address] May, [facility] [place] [facility] [address] [id number] [address] May, [facility] [place] [facility] [address] [id number] [place] [address] May, [facility] [place] [facility] [address] [id number] [place] [address] May, [facility] [place] [facility] [address] [id number] [place] [address] Apr, [facility] [place] [facility] [address] [id number] [place] [address] Mar, [facility] [place] [facility] [address] [id number] [place] [address] 14 Mar, 2013 [facility] [address] [id number] [place] [address] Feb, [facility] [place] [facility] [address] [id number] [place] [address] Feb, [facility] [address] [id number] [place] [address] Feb, [facility] [place] [facility] [address] [id number] [place] [address] Jan, [facility] [address] [id number] [place] [address] Dec, [facility] [place] [facility] [address] [id number] [place] [address] Dec, [facility] [place] [facility] [address] [id number] [place] [address] Dec, [facility] [address] [id number] [place] [address] Dec, [facility] [place] [facility] [address] [id number] [place] [address] November, [facility] [address] [id number] [place] [address] Sep, [facility] [place] [facility] [address] [id number] [place] [address] Aug, [facility] [place] [facility] [address] [id number] [place] [address] Jul, [facility] [place] [facility] [address] [id number] [place] [address] Jul, [facility] [place] [facility] [address] [id number] [place] [address] Jun, [facility] [place] [facility] [address] [id number] [place] [address] Jun, [facility] [id number] [address] May, [facility] [address] [address] May, [facility] [address] [address] Aug, [facility] [address] [address] Jun, [facility] [address] [address] May, [facility] [id number] [place] [address] May, [facility] [address] [address] May, [facility] [address] [address] 05 May, 2008 [facility] [id number] [address] Apr, IMMUNIZATIONS No Known Immunizations SOCIAL HISTORY Never Assessed REASON FOR VISIT [facility] [place] CARE VITAL SIGNS MEDICATIONS Unknown [...]
--- OUTSIDE RECORDS SUMMARY | 2019-02-21 19:16 | XMS REPORT ---
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 Name Role Phone Migration, Doctor Unavailable Unavailable PROBLEMS Type Condition ICD9-CM Code [id number] Code Onset Dates Condition Status SNOMED Code Problem Panic disorder without agoraphobia 300.01 Active [id number] Problem Major depressive disorder, recurrent episode, in partial or unspecified remission 296.35 Active [id number] ALLERGIES No Information ENCOUNTERS Encounter Location Date Diagnosis [place] [id number] [place] [address] Jan, [place] [address] [address] Oct, Major depressive disorder, recurrent episode, in partial remission F33.41 and 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.1 [place] [id number] [place] [address] Jul, Major depressive disorder, recurrent episode, in partial remission F33.41 and 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.1 [place] [id number] [place] [address] May, Major depressive disorder, recurrent episode, in partial remission F33.41 and 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.1 [place] [id number] [place] [address] Feb, Major depressive disorder, recurrent episode, in partial remission F33.41 [place] [id number] [place] [address] Jan, Major depressive disorder, recurrent episode, in partial remission F33.41 [place] [id number] [place] [address] Jan, Major depressive disorder, recurrent episode, in partial remission F33.41 and 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.1 [facility] [id number] [address] Jan, [facility] [id number] [address] Dec, Major depressive disorder, recurrent episode, in partial remission F33.41 [facility] [address] [address] Dec, Major depressive disorder, recurrent episode, in partial remission F33.41 [facility] [id number] [address] Oct, Major depressive disorder, recurrent episode, in partial remission F33.41 and 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.1 [facility] [address], [place] [address] Jun, Major depressive disorder, recurrent episode, in partial remission F33.41 and 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.1 [facility] [address], [place] [address] Feb, 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.1 [facility] [id number] 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 [address] Dec, [facility] [id number] [place] [address] Dec, [facility] [id number] [address] Dec, Major depressive disorder, recurrent episode, in partial remission F33.41 [facility] [address] [address] November, [facility] [id number] [place] [address] November, Major depressive disorder, recurrent episode, in partial remission F33.41 and 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.1 [facility] [id number] [address] Oct, Major depressive disorder, recurrent episode, in partial remission F33.41 and 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.1 [facility] [address], [place] [address] Jul, [facility] [id number] [place] [address] Jul, [facility] [id number] [address] Jul, Major depressive disorder, recurrent episode, in partial remission F33.41 ; 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.1 and Other mcc (current) drug therapy Z79.899 [facility] [address] [address] Jun, [facility] [address], [place] [address] Apr, Major depression, recurrent 296.30 and Anxiety disorder, unspecified F41.9 [facility] [address], [place] [address] Feb, [facility] [address], [place] [address] Jan, [facility] [address], [place] [address] Dec, Major depressive disorder, recurrent, in partial remission F33.41 and Anxiety disorder, unspecified F41.9 [facility] [address], [place] [address] Dec, [place] [address], [place] [address] November, [facility] [address], [place] [address] November, [facility] [address], [place] [address] Oct, [facility] [id number] [place] [address] Aug, [facility] [address], [place] [address] Jul, [facility] [id number] [place] [address] Jul, 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.1 ; Major depressive disorder, recurrent, moderate F33.1 and Anxiety disorder, unspecified F41.9 [facility] [address], [place] [address] Jun, [facility] [address], [place] [address] May, [facility] [address], [place] [address] May, [facility] [address], [place] [address] Mar, [facility] [address], [place] [address] Feb, Major depression, recurrent 296.30 ; Chronic post-traumatic stress disorder (PTSD) 309.81 ; Anxiety 300.00 ; No condition on [place] II V71.09 and No condition on axis III V71.09 [facility] [address], [place] [address] Jan, Major depression 296.20 ; 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 300.02 ; 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 ; No condition on [place] II V71.09 and No condition on axis III V71.09 [facility] [address], [place] [address] 15 Dec, 2014 Depression, major, recurrent, moderate 296.32 ; 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 300.02 and [place] II diagnosis deferred 799.9 [facility] [address], [place] [address] 02 Dec, 2014 Major depressive disorder, recurrent episode, in partial or unspecified remission 296.35 and Panic disorder without agoraphobia 300.01 [facility] [address], [place] [address] 14 Oct, 2014 [facility] [id number] [place] [address] Oct, [facility] [id number] [address] Mar, [facility] [address], [place] [address] Feb, [facility] [address], [place] [address] Feb, [facility] [address], [place] [address] Feb, [facility] [address], [place] [address] Feb, [facility] [address], [place] [address] Feb, [facility] [address], [place] [address] Feb, [facility] [address], [place] [address] November, [facility] [address], [place] [address] November, [facility] [id number], [place] [address] November, [facility] [place] [facility] [address] [id number] [place] [address] November, [facility] [place] [facility] [address] [id number] [place] [address] November, [facility] [place] [facility] [address] [id number] [place] [address] November, [facility] [place] [facility] [address] [id number] [place] [address] Oct, [facility] [place] [facility] [address] [id number] [place] [address] Oct, [facility] [place] [facility] [address] [id number] [place] [address] Sep, [facility] [place] [facility] [address] [id number] [place] [address] Sep, [facility] [place] [facility] [address] [id number] [place] [address] Sep, [facility] [place] [facility] [address] [id number] [place] [address] Sep, [facility] [place] [facility] [address] [id number] [place] [address] Sep, [facility] [place] [facility] [address] [id number] [place] [address] Sep, [facility] [place] [facility] [address] [id number] [place] [address] Aug, [facility] [place] [facility] [address] [id number] [place] [address] Aug, [facility] [place] [facility] [address] [id number] [place] [address] Aug, [facility] [place] [facility] [address] [id number] [place] [address] Aug, [facility] [place] [facility] [address] [id number] [address] Jul, [facility] [address] [id number] [place] [address] Jul, [facility] [place] [facility] [address] [id number] [place] [address] Jul, [facility] [place] [facility] [address] [id number] [place] [address] Jul, [facility] [place] [facility] [address] [id number] [place] [address] Jul, [facility] [place] [facility] [address] [id number] [place] [address] Jul, [facility] [place] [facility] [address] [id number] [place] [address] Jun, [facility] [place] [facility] [address] [id number] [place] [address] Jun, [facility] [place] [facility] [address] [id number] [place] [address] Jun, [facility] [place] [facility] [address] [id number] [place] [address] Jun, [facility] [place] [facility] [address] [id number] [place] [address] May, [facility] [place] [facility] [address] [id number] [address] May, [facility] [place] [facility] [address] [id number], [place] [address] May, [facility] [place] [facility] [address] [id number] [place] [address] May, [facility] [place] [facility] [address] [id number] [place] [address] Apr, [facility] [place] [facility] [address] [id number] [place] [address] Mar, [facility] [place] [facility] [address] [id number] [place] [address] 14 Mar, 2013 [facility] [address] [id number] [place] [address] Feb, [facility] [place] [facility] [address] [id number] [place] [address] Feb, [facility] [address] [id number] [place] [address] Feb, [facility] [place] [facility] [address] [id number] [place] [address] Jan, [facility] [address] [id number] [place] [address] Dec, [facility] [place] [facility] [address] [id number] [place] [address] Dec, [facility] [place] [facility] [address] [id number] [place] [address] Dec, [facility] [address] [id number] [place] [address] Dec, [facility] [place] [facility] [address] [id number] [place] [address] November, [facility] [address] [id number] [place] [address] Sep, [facility] [place] [facility] [address] [id number] [place] [address] Aug, [facility] [place] [facility] [address] [id number] [place] [address] Jul, [facility] [place] [facility] [address] [id number] [place] [address] Jul, [facility] [place] [facility] [address] [id number] [place] [address] Jun, [facility] [place] [facility] [address] [id number] [place] [address] Jun, [facility] [id number], [place] [address] May, [facility] [address], [place] [address] May, [facility] [address], [place] [address] Aug, [facility] [address], [place] [address] Jun, [facility] [address], [place] [address] May, [facility] [id number] [place] [address] May, [facility] [address], [place] [address] May, [facility] [address], [place] [address] 05 May, 2008 [facility] [id number], [place] [address] Apr, IMMUNIZATIONS No Known Immunizations SOCIAL HISTORY Never Assessed REASON FOR VISIT [facility] PLAN OF CARE VITAL SIGNS MEDICATIONS Unknown [...]
--- OUTSIDE RECORDS SUMMARY | 2019-02-21 19:16 | XMS REPORT ---
Author Author Migration, Doctor Organization [facility] Address Unknown Phone Unavailable Care Team Providers Care Drug Safety Specialist Name Role Phone Migration, Doctor Unavailable Unavailable PROBLEMS Type Condition ICD9-CM Code [id number] Code Onset Dates Condition Status SNOMED Code Problem Panic disorder without agoraphobia 300.01 Active 35040115 Problem Major depressive disorder, recurrent episode, in partial or unspecified remission 296.35 Active [id number] ALLERGIES No Information ENCOUNTERS Encounter Location Date Diagnosis [place] [id number] [place] [address] Oct, [place] [id number] [place] [address] Jul, Major depressive disorder, recurrent episode, in partial remission F33.41 and 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.1 [place] [id number] [place] [address] May, Major depressive disorder, recurrent episode, in partial remission F33.41 and 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.1 [place] [id number] [place] [address] Feb, Major depressive disorder, recurrent episode, in partial remission F33.41 [place] [id number] [place] [address] Jan, Major depressive disorder, recurrent episode, in partial remission F33.41 [place] [id number] [place] [address] Jan, Major depressive disorder, recurrent episode, in partial remission F33.41 and 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.1 [place] [id number] [place] [address] Jan, [place] [id number] [place] [address] Dec, Major depressive disorder, recurrent episode, in partial remission F33.41 [facility] [address] [place] [address] Dec, Major depressive disorder, recurrent episode, in partial remission F33.41 [facility] [address], [place] [address] Oct, Major depressive disorder, recurrent episode, in partial remission F33.41 and 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.1 [facility] [address], [place] [address] Jun, Major depressive disorder, recurrent episode, in partial remission F33.41 and 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.1 [facility] [address], [place] [address] Feb, 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.1 [place] [address], [place] [address] Jan, 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.1 [facility] [address], [place] [address] Jan, Major depressive disorder, recurrent episode, in partial remission F33.41 ; 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.1 and Other halfway (current) drug therapy Z79.899 [facility] [address], [place] [address] Dec, [facility] [address] [place] [address] Dec, [facility] [id number] [address] Dec, Major depressive disorder, recurrent episode, in partial remission F33.41 [facility] [id number] [address] November, [facility] [address] [place] [address] November, Major depressive disorder, recurrent episode, in partial remission F33.41 and 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.1 [facility] [id number] [place] [address] Oct, Major depressive disorder, recurrent episode, in partial remission F33.41 and 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.1 [facility] [id number] [place] [address] Jul, [facility] [id number] [place] [address] Jul, [facility] [id number] [place] [address] Jul, Major depressive disorder, recurrent episode, in partial remission F33.41 ; 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.1 and Other halfway (current) drug therapy Z79.899 [facility] [id number] [place] [address] Jun, [facility] [id number] [place] [address] Apr, Major depression, recurrent 296.30 and Anxiety disorder, unspecified F41.9 [facility] [id number] [place] [address] Feb, [facility] [address], [place] [address] Jan, [facility] [id number] [place] [address] Dec, Major depressive disorder, recurrent, in partial remission F33.41 and Anxiety disorder, unspecified F41.9 [facility] [id number] [place] [address] Dec, [facility] [id number] [place] [address] November, [facility] [id number] [place] [address] November, [facility] [address], [place] [address] Oct, [facility] [id number] [place] [address] Aug, [facility] [id number] [place] [address] Jul, [facility] [id number] [place] [address] Jul, 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.1 ; Major depressive disorder, recurrent, moderate F33.1 and Anxiety disorder, unspecified F41.9 [facility] [id number] [place] [address] Jun, [facility] [id number] [place] [address] May, [facility] [id number] [place] [address] May, [facility] [id number] [place] [address] Mar, [facility] [id number] [place] [address] Feb, Major depression, recurrent 296.30 ; Chronic post-traumatic stress disorder (PTSD) 309.81 ; Anxiety 300.00 ; No condition on [place] II V71.09 and No condition on axis III V71.09 [facility] [id number] [place] [address] Jan, Major depression 296.20 ; Generalized anxiety disorder 300.02 ; 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 ; No condition on [place] II V71.09 and No condition on axis III V71.09 [facility] [address], [place] [address] Dec, Depression, major, recurrent, moderate 296.32 ; Generalized anxiety disorder 300.02 and [place] II diagnosis deferred 799.9 [facility] [address] [facility] [id number] [place] [address] Dec, Major depressive disorder, recurrent episode, in partial or unspecified remission 296.35 and Panic disorder without agoraphobia 300.01 [facility] [address] [id number] [place] [address] 14 Oct, 2014 [facility] [address] [facility] [id number] [place] [address] Oct, [facility] [address] [facility] [id number] [place] [address] Mar, [facility] [id number] [address] Feb, [facility] [address] [facility] [id number] [place] [address] Feb, [facility] [id number] [place] [address] Feb, [facility] [id number] [place] [address] Feb, [facility] [id number] [place] [address] Feb, [facility] [id number] [address] Feb, [facility] [id number] [address] November, [facility] [address] [facility] [id number], [place] [address] November, [facility] [id number] [place] [address] November, [facility] [address] [facility] [id number], [place] [address] November, [facility] [id number], [place] [address] November, [facility] [place] [facility] [address] [id number] [place] [address] November, [facility] [place] [facility] [address] [id number] [place] [address] Oct, [facility] [place] [facility] [address] [id number] [place] [address] Oct, [facility] [place] [facility] [address] [id number] [place] [address] Sep, [facility] [place] [facility] [address] [id number] [place] [address] Sep, [facility] [place] [facility] [address] [id number] [place] [address] Sep, [facility] [place] [facility] [address] [id number] [place] [address] Sep, [facility] [place] [facility] [address] [id number] [place] [address] Sep, [facility] [place] [facility] [address] [id number] [place] [address] Sep, [facility] [place] [facility] [address] [id number] [place] [address] Aug, [facility] [place] [facility] [address] [id number] [place] [address] Aug, [facility] [place] [facility] [address] [id number] [place] [address] Aug, [facility] [place] [facility] [address] [id number] [place] [address] Aug, [facility] [place] [facility] [address] [id number] [place] [address] Jul, [facility] [place] [facility] [address] [id number] [place] [address] Jul, [facility] [place] [facility] [address] [id number] [place] [address] Jul, [facility] [address] [id number] [place] [address] Jul, [facility] [address] [id number] [place] [address] Jul, [facility] [address] [id number] [place] [address] Jul, [facility] [address] [id number] [place] [address] Jun, [facility] [address] [id number] [place] [address] Jun, [facility] [address] [id number] [place] [address] Jun, [facility] [address] [id number] [place] [address] Jun, [facility] [address] [id number] [place] [address] May, [facility] [address] [id number] [place] [address] May, [facility] [address] [id number] [place] [address] May, [facility] [address] [id number] [place] [address] May, [facility] [address] [id number] [place] [address] Apr, [facility] [place] [facility] [address] [id number] [place] [address] Mar, [facility] [place] [facility] [address] [id number] [place] [address] 14 Mar, 2013 [facility] [address] [id number] [place] [address] Feb, [facility] [address] [id number] [place] [address] Feb, [facility] [place] [facility] [address] [id number] [place] [address] Feb, [facility] [place] [facility] [address] [id number] [place] [address] Jan, [facility] [place] [facility] [address] [id number] [place] [address] Dec, [facility] [place] [facility] [address] [id number] [place] [address] Dec, [facility] [place] [facility] [address] [id number] [place] [address] Dec, [facility] [place] [facility] [address] [id number] [place] [address] Dec, [facility] [place] [facility] [address] [id number] [place] [address] November, [facility] [place] [facility] [address] [id number] [place] [address] Sep, [facility] [place] [facility] [address] [id number] [place] [address] Aug, [facility] [place] [facility] [address] [id number] [place] [address] Jul, [facility] [place] [facility] [address] [id number] [place] [address] Jul, [facility] [place] [facility] [address] [id number] [place] [address] Jun, [facility] [place] [facility] [address] [id number] [place] [address] Jun, [facility] [place] [facility] [address] [id number] [place] [address] May, [facility] [place] [facility] [address] [id number], [place] [address] May, [facility] [id number] [place] [address] Aug, [facility] [id number] [place] [address] Jun, [facility] [address] [place] [address] May, [facility] [address], [place] [address] May, [facility] [address] [place] [address] May, [facility] [address] [place] [address] May, [facility] [id number], [place] [address] Apr, IMMUNIZATIONS No Known Immunizations SOCIAL HISTORY Never Assessed REASON FOR VISIT EMR-[facility] [place] PLAN OF CARE VITAL SIGNS MEDICATIONS Unknown [...]
--- OUTSIDE RECORDS SUMMARY | 2019-02-21 19:16 | XMS REPORT ---
Author Author Migration, Doctor Organization [facility] Address Unknown Phone Unavailable Care Team Providers Care Auto Bench Mechanic Name Role Phone Migration, Doctor Unavailable Unavailable PROBLEMS Type Condition ICD9-CM Code DOH30-UV Code Onset Dates Condition Status SNOMED Code Problem Panic disorder without agoraphobia 300.01 Active 54787753 Problem Major depressive disorder, recurrent episode, in partial or unspecified remission 296.35 Active [id number] ALLERGIES No Information ENCOUNTERS Encounter Location Date Diagnosis [place] [id number] [place] [address] Jan, [place] [address] [address] Oct, Major depressive disorder, recurrent episode, in partial remission F33.41 and 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.1 [place] [id number] [place] [address] Jul, Major depressive disorder, recurrent episode, in partial remission F33.41 and 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.1 [place] [id number] [place] [address] May, Major depressive disorder, recurrent episode, in partial remission F33.41 and 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.1 [place] [id number] [place] [address] Feb, Major depressive disorder, recurrent episode, in partial remission F33.41 [place] [id number] [place] [address] Jan, Major depressive disorder, recurrent episode, in partial remission F33.41 [place] [id number] [place] [address] Jan, Major depressive disorder, recurrent episode, in partial remission F33.41 and 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.1 [facility] [id number], [place] [address] Jan, [facility] [id number], [place] [address] Dec, Major depressive disorder, recurrent episode, in partial remission F33.41 [facility] [address], [place] [address] Dec, Major depressive disorder, recurrent episode, in partial remission F33.41 [facility] [id number], [place] [address] Oct, Major depressive disorder, recurrent episode, in partial remission F33.41 and 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.1 [facility] [address], [place] [address] Jun, Major depressive disorder, recurrent episode, in partial remission F33.41 and 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.1 [facility] [address], [place] [address] Feb, 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.1 [facility] [id number] [place] [address] Jan, 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.1 [facility] [address], [place] [address] Jan, Major depressive disorder, recurrent episode, in partial remission F33.41 ; 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.1 and Other community relations director (current) drug therapy Z79.899 [facility] [id number] [place] [address] Dec, [facility] [id number] [place] [address] Dec, [facility] [id number], [place] [address] Dec, Major depressive disorder, recurrent episode, in partial remission F33.41 [facility] [address], [place] [address] November, [facility] [id number] [place] [address] November, Major depressive disorder, recurrent episode, in partial remission F33.41 and 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.1 [facility] [id number], [place] [address] Oct, Major depressive disorder, recurrent episode, in partial remission F33.41 and 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.1 [facility] [address], [place] [address] Jul, [facility] [id number] [place] [address] Jul, [facility] [id number], [place] [address] Jul, Major depressive disorder, recurrent episode, in partial remission F33.41 ; 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.1 and Other nursing home (current) drug therapy Z79.899 [facility] [address], [place] [address] Jun, [facility] [address], [place] [address] Apr, Major depression, recurrent 296.30 and Anxiety disorder, unspecified F41.9 [facility] [address], [place] [address] Feb, [facility] [address], [place] [address] Jan, [facility] [address], [place] [address] Dec, Major depressive disorder, recurrent, in partial remission F33.41 and Anxiety disorder, unspecified F41.9 [facility] [address], [place] [address] Dec, [place] [id number], [place] [address] November, [facility] [address], [place] [address] November, [facility] [address], [place] [address] Oct, [facility] [id number] [place] [address] Aug, [facility] [address], [place] [address] Jul, [facility] [address] [place] [address] Jul, 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.1 ; Major depressive disorder, recurrent, moderate F33.1 and Anxiety disorder, unspecified F41.9 [facility] [address], [place] [address] Jun, [facility] [id number], [place] [address] May, [facility] [address], [place] [address] May, [facility] [address], [place] [address] Mar, [facility] [address], [place] [address] Feb, Major depression, recurrent 296.30 ; Chronic post-traumatic stress disorder (PTSD) 309.81 ; Anxiety 300.00 ; No condition on [place]ant[place] II V71.09 and No condition on axis III V71.09 [facility] [address], [place] [address] Jan, Major depression 296.20 ; Generalized anxiety disorder 300.02 ; 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 ; No condition on [place] II V71.09 and No condition on axis III V71.09 [facility] [address], [place] [address] 15 Dec, 2014 Depression, major, recurrent, moderate 296.32 ; Generalized anxiety disorder 300.02 and [place] II diagnosis deferred 799.9 [facility] [address], [place] [address] 02 Dec, 2014 Major depressive disorder, recurrent episode, in partial or unspecified remission 296.35 and Panic disorder without agoraphobia 300.01 [facility] [address], [place] [address] 14 Oct, 2014 [facility] [id number] [place] [address] Oct, [facility] [id number], [place] [address] Mar, [facility] [address], [place] [address] Feb, [facility] [address], [place] [address] Feb, [facility] [address], [place] [address] Feb, [facility] [address], [place] [address] Feb, [facility] [address], [place] [address] Feb, [facility] [address], [place] [address] Feb, [facility] [address], [place] [address] November, [facility] [id number], [place] [address] November, [facility] [id number], [place] [address] November, [facility] [place] [facility] [address] [id number] [place] [address] November, [facility] [place] [facility] [address] [id number] [place] [address] November, [facility] [place] [facility] [address] [id number] [place] [address] November, [facility] [place] [facility] [address] [id number] [place] [address] Oct, [facility] [place] [facility] [address] [id number] [place] [address] Oct, [facility] [place] [facility] [address] [id number] [place] [address] Sep, [facility] [place] [facility] [address] [id number] [place] [address] Sep, [facility] [place] [facility] [address] [id number] [place] [address] Sep, [facility] [place] [facility] [address] [id number] [place] [address] Sep, [facility] [place] [facility] [address] [id number] [place] [address] Sep, [facility] [place] [facility] [address] [id number] [place] [address] Sep, [facility] [place] [facility] [address] [id number] [place] [address] Aug, [facility] [place] [facility] [address] [id number] [place] [address] Aug, [facility] [place] [facility] [address] [id number] [place] [address] Aug, [facility] [place] [facility] [address] [id number] [place] [address] Aug, [facility] [place] [facility] [address] [id number] [address] Jul, [facility] [address] [id number] [place] [address] Jul, [facility] [place] [facility] [address] [id number] [place] [address] Jul, [facility] [place] [facility] [address] [id number] [place] [address] Jul, [facility] [place] [facility] [address] [id number] [place] [address] Jul, [facility] [place] [facility] [address] [id number] [place] [address] Jul, [facility] [place] [facility] [address] [id number] [place] [address] Jun, [facility] [place] [facility] [address] [id number] [place] [address] Jun, [facility] [place] [facility] [address] [id number] [place] [address] Jun, [facility] [place] [facility] [address] [id number] [place] [address] Jun, [facility] [place] [facility] [address] [id number] [place] [address] May, [facility] [place] [facility] [address] [id number], [place] [address] May, [facility] [place] [facility] [address] [id number], [place] [address] May, [facility] [place] [facility] [address] [id number] [place] [address] May, [facility] [place] [facility] [address] [id number] [place] [address] Apr, [facility] [place] [facility] [address] [id number] [place] [address] Mar, [facility] [place] [facility] [address] [id number] [place] [address] 14 Mar, 2013 [facility] [address] [id number] [place] [address] Feb, [facility] [place] [facility] [address] [id number] [place] [address] Feb, [facility] [address] [id number] [place] [address] Feb, [facility] [place] [facility] [address] [id number] [place] [address] Jan, [facility] [address] [id number] [place] [address] Dec, [facility] [place] [facility] [address] [id number] [place] [address] Dec, [facility] [place] [facility] [address] [id number] [place] [address] Dec, [facility] [address] [id number] [place] [address] Dec, [facility] [place] [facility] [address] [id number] [place] [address] November, [facility] [address] [id number] [place] [address] Sep, [facility] [place] [facility] [address] [id number] [place] [address] Aug, [facility] [place] [facility] [address] [id number] [place] [address] Jul, [facility] [place] [facility] [address] [id number] [place] [address] Jul, [facility] [place] [facility] [address] [id number] [place] [address] Jun, [facility] [place] [facility] [address] [id number] [place] [address] Jun, [facility] [id number], [place] [address] May, [facility] [address], [place] [address] May, [facility] [id number], [place] [address] Aug, [facility] [address], [place] [address] Jun, [facility] [address], [place] [address] May, [facility] [id number] [place] [address] May, [facility] [address], [place] [address] May, [facility] [address], [place] [address] 05 May, 2008 [facility] [id number], [place] [address] Apr, IMMUNIZATIONS No Known Immunizations SOCIAL HISTORY Never Assessed REASON FOR VISIT [facility] PLAN OF CARE VITAL SIGNS MEDICATIONS Unknown [...]
--- OUTSIDE RECORDS SUMMARY | 2019-02-21 19:24 | XMS REPORT | Continuity of Care Document ---
Author Organization Unknown Address Unknown Phone Unavailable Allergies Active Description Code Type Severity Reaction Onset Reported/Identified Relationship to Patient Clinical Status Yes olanzapine [id number] Drug Allergy Unknown N/A 08/03/2008 Yes codeine Drug Allergy 02/16/2011 Yes codeine Drug Allergy N/A N/A 02/16/2011 Yes Cefadroxil Drug Allergy N/A N/A 08/20/2013 Yes cefadroxil [id number] Drug Allergy Unknown N/A 05/13/2018 Yes codeine [id number] Drug Allergy Unknown N/A 05/13/2018 Yes cefadroxil [id number] Drug Allergy Mild MAKES HER DIZZY 05/15/2018 [...] MAYER DO 307.47 SI DYSSOMNIA NOS 05/05/2008 HOLLY MAYER DOEN Marilyn 316 PF PSYCHIC FACTORS MED COND 05/05/2008 [...] PF PSYCHIC FACTORS MED COND 05/05/2008 JENNIFER [employer] SUPERINTENDENT, CODY 296.30 MAJOR DEPRESSIVE AFFECTIVE DISORDER RECURRENT EPISODE UNSPECIFIED DEGREE 05/05/2008 JENN[employer]ER [employer] SUPERINTENDENT, CODY 300.21 AN PANIC DIS W AGORA 05/05/2008 JENN[employer]ER [employer] SUPERINTENDENT, CODY 307.47 SI DYSSOMNIA NOS 05/05/2008 JENNIFER [employer] SUPERINTENDENT, CODY 316 PF PSYCHIC FACTORS MED COND 05/05/2008 JENNIFER [employer] SUPERINTENDENT, CODY 296.30 MAJOR DEPRESSIVE AFFECTIVE DISORDER RECURRENT EPISODE UNSPECIFIED DEGREE 05/05/2008 JENN[employer]ER [employer] SUPERINTENDENT, CODY 300.21 AN PANIC DIS W AGORA 05/05/2008 JENN[employer]ER [employer] SUPERINTENDENT, CODY 307.47 SI DYSSOMNIA NOS 05/05/2008 JENN[employer]ER [employer] SUPERINTENDENT, CODY 316 PF PSYCHIC FACTORS MED COND [...] PHD 300.00 AN ANXIETY UNSPEC 05/26/2008 ALCIDES SEPULVDEA PHD 296.32 MAJOR DEPRESSIVE AFFECTIVE DISORDER RECURRENT [...] MD 300.00 AN ANXIETY UNSPEC 05/26/2008 JENNIFER TIM, CODY 296.32 MAJOR DEPRESSIVE AFFECTIVE DISORDER RECURRENT EPISODE MODERATE DEGREE 05/26/2008 JENNIFER TIM, CODY 300.00 AN ANXIETY UNSPEC 05/26/2008 JENNIFER TIM, CODY 296.32 MAJOR DEPRESSIVE AFFECTIVE DISORDER RECURRENT [...] NOS 04/20/2011 Ot 414.01 CORONARY ATHEROSCLEROSIS OF [place] CORON 04/20/2011 Ot 414.02 CORON ATHEROSCLEROSIS AUTOLOG VEIN BYPAS 04/20/2011 Ot 414.2 CHRONIC TOTAL OCCLUSION OF CORONARY [place] 04/20/2011 Ot 428.0 CONGESTIVE HEART FAILURE NOS 04/20/2011 Ot 428.22 CHRONIC SYSTOLIC HRT FAILURE 04/20/2011 Ot 433.10 CAROTID ARTERY OCCLUSION W O CEREBRAL IN 04/20/2011 Ot 729.1 MYALGIA AND MYOSITIS NOS 04/20/2011 Ot V45.81 AORTOCORONARY BYPASS 04/20/2011 Ot V58.63 LONG-TERM(CURRENT)USE OF ANTIPLATELET/AN 04/20/2011 Ot V58.66 LONG-TERM (CURRENT) USE OF ASPIRIN 04/20/2011 Ot V58.69 OTH MED,LT,CURRENT USE 04/27/2012 Ot 244.9 HYPOTHYROIDISM NOS 04/27/2012 [...] NOS 09/10/2012 Ot 414.01 CORONARY ATHEROSCLEROSIS OF [place] CORON 09/10/2012 Ot 414.02 CORON ATHEROSCLEROSIS AUTOLOG [...] Ot V45.81 AORTOCORONARY BYPASS 09/10/2012 Ot V58.63 LONG-TERM(CURRENT)USE OF ANTIPLATELET/AN 09/10/2012 Ot V58.66 LONG-TERM (CURRENT) USE OF ASPIRIN 09/10/2012 Ot V58.69 OTH MED,LT,CURRENT USE 09/19/2012 SOLEDAD MAYER DO 300.01 AN [...] AN PANIC DIS W/O AGORA 09/19/2012 J[employer] SUPERINTENDENT, CODY 300.01 AN PANIC DIS W/O AGORA 09/19/2012 J[employer] SUPERINTENDENT, CODY 300.01 AN PANIC DIS W/O AGORA 04/01/2013 TRUDY LANGFORD Ot 816.00 FX PHALANX, HAND NOS-CL 04/01/2013 TRUDY LANGFROD Ot 959.5 FINGER INJURY NOS 04/01/2013 TRUDY [...] MD Ot 272.4 HYPERLIPIDEMIA NEC/NOS 05/09/2014 SUZETTE COCHRNA MD Ot 276.51 DEHYDRATION 05/09/2014 SUZETTE COCHRAN [...] 09/19/2015 ROSITA CRUZ Ot V76.12 09/19/2015 NENO RIZO, ESA K Ot 401.9 09/19/2015 NENO PA, ESA Cote Ot 414.00 09/19/2015 NENO PA, ESA Cote Ot 426.4 09/19/2015 NENO PA, ESA Cote Ot 428.0 [...] 09/21/2015 ROSITA CRUZ Ot V76.12 09/21/2015 NENO RIOZ, ESA Cote Ot 401.9 09/21/2015 ALONSO-DERICK PA, ESA Cote Ot 414.00 09/21/2015 ALONSO-DERICK PA, ESA K Ot 426.4 09/21/2015 ALONSO-DERICK PA, ESA K Ot 428.0 09/21/2015 ALONSO-DERICK PA, ESA K Ot 272.4 09/21/2015 ALONSO-DERICK PA, ESA K Ot 414.9 09/21/2015 ALONSO-DERICK PA, ESA K Ot 428.0 09/21/2015 ALONSO-DERICK PA, ESA K Ot 433.10 09/21/2015 SUZETTE COCHRAN MD Ot E03.9 HYPOTHYROIDISM, UNSPECIFIED 09/21/2015 SUZETTE COCHRAN MD Ot E11.9 TYPE 2 DIABETES MELLITUS WITHOUT COMPLIC 09/21/2015 SUZETTE COCHRAN MD Ot E78.5 HYPERLIPIDEMIA, UNSPECIFIED 09/21/2015 SUZETTE COCHRAN MD Ot I10 ESSENTIAL (PRIMARY) HYPERTENSION 09/21/2015 SUZETTE COCHRAN MD Ot I25.10 ATHSCL HEART DISEASE OF [place] CORONARY 09/21/2015 SUZETTE COCHRAN MD Ot I25.82 [...] 09/21/2015 SUZETTE COCHRAN MD Ot Z79.899 OTHER HIDE MILL MAN (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 09/21/2015 SUZETTE COCHRAN MD Ot Z95.1 PRESENCE OF AORTOCORONARY BYPASS GRAFT 10/03/2015 SUZETTE COCHRAN MD Ot E03.9 10/03/2015 SUZETTE COCHRAN MD Ot E11.9 10/03/2015 SUZTETE COCHRAN MD Ot E78.5 10/03/2015 SUZETTE COCHRAN MD Ot I10 10/03/2015 SUZETTE COCHRAN MD Ot I25.10 10/03/2015 DIMAS SHERMAN, SUZETTE Hardy Ot I25.82 10/03/2015 DIMAS SHERMAN, SUZETTE Hardy Ot I50.22 10/03/2015 DIMAS SHERMAN, SUZETTE Hardy Ot I65.02 10/03/2015 DIMAS SHERMAN, SUZETTE Hardy Ot I65.23 10/03/2015 DIMAS SHERMAN, SUZETTE Hardy Ot R07.89 10/03/2015 DIMAS SHERMAN, SUZETTE Hardy Ot Z79.899 10/03/2015 DIMAS SHREMAN, SUZETTE Hardy Ot Z95.1 10/11/2015 Ot 396.3 [...] 10/11/2015 ROSITA CRUZ Ot V49.81 10/11/2015 ROSITA CRUZP Ot V76.12 10/11/2015 ESA BETTS Ot 401.9 10/11/2015 ESA BETTS Ot 414.00 10/11/2015 ESA BETTS Ot 426.4 10/11/2015 ESA BETTS Ot 428.0 10/11/2015 ESA BETTS Ot 272.4 10/11/2015 ESA BETTS Ot 414.9 10/11/2015 ESA BETTS Ot 428.0 10/11/2015 ESA BETTS Ot 433.10 11/18/2015 Ot 396.3 MITRAL/AORTIC CRISTA INSUFF 11/18/2015 Ot 397.0 TRICUSPID VALVE DISEASE 11/18/2015 Ot 414.00 CORON ATHEROSCLER NOS TYPE VESSEL, NATIV 11/18/2015 Ot 426.52 RT BBB/LFT ANT FASC BLK 11/18/2015 Ot 428.0 CONGESTIVE HEART FAILURE NOS 11/18/2015 Ot V45.81 AORTOCORONARY BYPASS 11/18/2015 Ot 272.4 HYPERLIPIDEMIA NEC/NOS 11/18/2015 Ot 414.01 CORONARY ATHEROSCLEROSIS OF [place] CORON 11/18/2015 Ot 440.20 ATHEROSCLEROSIS [place] ARTERIES EXTREMIT 11/18/2015 Ot 998.12 HEMATOMA COMPLIC A PROC 11/18/2015 Ot 401.9 HYPERTENSION NOS 11/18/2015 Ot V58.69 OTH MED,LT,CURRENT USE 11/18/2015 Ot 396.3 MITRAL/AORTIC CRISTA INSUFF 11/18/2015 Ot 397.0 TRICUSPID VALVE [...] (W/O MENT OF HEMORR 11/18/2015 Ot 396.3 MITRAL/AORTIC CRISTA INSUFF 11/18/2015 Ot 397.0 TRICUSPID VALVE DISEASE 11/18/2015 Ot 401.9 HYPERTENSION NOS 11/18/2015 Ot 414.00 CORON ATHEROSCLER NOS TYPE VESSEL, NATIV 11/18/2015 Ot 426.4 RT BUNDLE BRANCH BLOCK 11/18/2015 LORENA CRUZVinita Whittaker CASSI Ot V49.81 ASYMPT POSTMENOPAUSAL STATUS (AGE-RELATE 11/18/2015 ANTHONY ROSITA YE Ot V76.12 OTH SCREEN MAMMO-MALIGN NEOPLASM OF [...] MD, Ot I25.10 ATHSCL HEART DISEASE OF [place] CORONARY 11/25/2015 SUZETTE COCHRAN MD, Ot I25.82 [...] 11/25/2015 SUZETTE COCHRAN MD Ot Z79.899 OTHER HIDE MILL MAN (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 11/25/2015 SUZETTE COCHRAN MD Ot Z95.1 PRESENCE OF AORTOCORONARY BYPASS GRAFT 07/23/2016 Ot 272.4 HYPERLIPIDEMIA NEC/NOS 07/23/2016 Ot 414.01 CORONARY ATHEROSCLEROSIS OF [place] CORON 07/23/2016 Ot 440.20 ATHEROSCLEROSIS [place] ARTERIES EXTREMIT 07/23/2016 Ot 998.12 HEMATOMA COMPLIC A PROC 07/23/2016 Ot 401.9 HYPERTENSION NOS 07/23/2016 Ot V58.69 OTH MED,LT,CURRENT USE 07/23/2016 Ot 396.3 MITRAL/AORTIC CRISTA INSUFF 07/23/2016 Ot 397.0 TRICUSPID VALVE [...] (W/O MENT OF HEMORR 07/23/2016 Ot 396.3 MITRAL/AORTIC CRISTA INSUFF 07/23/2016 Ot 397.0 TRICUSPID VALVE [...] 401.9 HYPERTENSION NOS 09/03/2016 Ot V58.69 OTH MED,LT,CURRENT USE 09/03/2016 Ot 396.3 MITRAL/AORTIC CRISTA INSUFF 09/03/2016 Ot 397.0 TRICUSPID VALVE [...] (W/O MENT OF HEMORR 09/03/2016 Ot 396.3 MITRAL/AORTIC CRISTA INSUFF 09/03/2016 Ot 397.0 TRICUSPID VALVE [...] 401.9 HYPERTENSION NOS 09/03/2016 Ot V58.69 OTH MED,LT,CURRENT USE 09/03/2016 Ot 396.3 MITRAL/AORTIC CRISTA INSUFF 09/03/2016 Ot 397.0 TRICUSPID VALVE [...] (W/O MENT OF HEMORR 09/03/2016 Ot 396.3 MITRAL/AORTIC CRISTA INSUFF 09/03/2016 Ot 397.0 TRICUSPID VALVE [...] DISEASE, STAGE 3 (MODERAT 01/18/2017 SUZETTE COCHRAN MD Ot E78.2 MIXED HYPERLIPIDEMIA 01/18/2017 SUZETTE COCHRAN MD Ot I10 ESSENTIAL (PRIMARY) HYPERTENSION 01/18/2017 SUZETTE COCHRAN MD Ot I25.10 ATHSCL HEART DISEASE OF [place] CORONARY 01/18/2017 SUZETTE COCHRAN MD Ot 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 01/18/2017 SUZETTE COCHRAN MD Ot M79.7 FIBROMYALGIA 02/08/2017 SUZETTE COCHRAN MD Ot E78.2 MIXED HYPERLIPIDEMIA 02/08/2017 SUZETTE COCHRAN MD Ot I10 ESSENTIAL (PRIMARY) HYPERTENSION 02/08/2017 SUZETTE COCHRAN MD Ot I25.10 ATHSCL HEART DISEASE OF [place] CORONARY 02/08/2017 SUZETTE COCHRAN MD Ot 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 02/08/2017 SUZETTE COCHRAN MD Ot M79.7 FIBROMYALGIA 03/04/2017 SUZETTE COCHRAN MD Ot E78.2 MIXED HYPERLIPIDEMIA 03/04/2017 SUZETTE COCHRAN MD Ot I10 ESSENTIAL (PRIMARY) HYPERTENSION 03/04/2017 SUZETTE COCHRAN MD Ot I25.10 ATHSCL HEART DISEASE OF [place] CORONARY 03/04/2017 SUZETTE COCHRAN MD Ot 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 03/04/2017 SUZETTE COCHRAN MD Ot M79.7 FIBROMYALGIA 01/09/2018 Ot 396.3 MITRAL/AORTIC CRISTA INSUFF 01/09/2018 Ot 397.0 TRICUSPID VALVE [...] MD Ot I25.10 ATHSCL HEART DISEASE OF [place] CORONARY 01/09/2018 SUZETTE COCHRAN MD Ot 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 01/09/2018 SUZETTE COCHRAN MD Ot M79.7 FIBROMYALGIA 01/15/2018 SUZETTE COCHRAN MD Ot E78.5 HYPERLIPIDEMIA, UNSPECIFIED 01/15/2018 SUZETTE COCHRAN MD 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 01/15/2018 SUZETTE COCHRAN MD Ot I11.0 HYPERTENSIVE HEART DISEASE WITH HEART FA 01/15/2018 SUZETTE COCHRAN MD Ot I25.10 ATHSCL HEART DISEASE OF [place] CORONARY 01/15/2018 SUZETTE COCHRAN MD Ot I50.9 HEART FAILURE, UNSPECIFIED 02/04/2018 SUZETTE COCHRAN MD Ot E78.5 HYPERLIPIDEMIA, UNSPECIFIED 02/04/2018 SUZETTE COCHRAN MD 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 02/04/2018 SUZETTE COCHRAN MD Ot I11.0 HYPERTENSIVE HEART DISEASE WITH HEART FA 02/04/2018 SUZETTE COCHRAN MD Ot I25.10 ATHSCL HEART DISEASE OF [place] CORONARY 02/04/2018 SUZETTE COCHRAN MD Ot I50.9 HEART FAILURE, UNSPECIFIED 02/17/2018 SUZETTE COCHRAN MD Ot E78.5 HYPERLIPIDEMIA, UNSPECIFIED 02/17/2018 SUZETTE COCHRAN MD 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 02/17/2018 SUZETTE COCHRAN MD Ot I11.0 HYPERTENSIVE HEART DISEASE WITH HEART FA 02/17/2018 SUZETTE COCHRAN MD Ot I25.10 ATHSCL HEART DISEASE OF [place] CORONARY 02/17/2018 SUZETTE COCHRAN MD Ot I50.9 HEART FAILURE, UNSPECIFIED 05/13/2018 ROSITA CRUZ GENERAL MANAGER [employer] DATA CLOUD Ot V49.81 ASYMPT POSTMENOPAUSAL STATUS (AGE-RELATE 05/13/2018 ROSITA CRUZ GENERAL MANAGER [employer] CLOUD Ot V76.12 OTH SCREEN MAMMO-MALIGN NEOPLASM OF [...] DISEASE, STAGE 3 (MODERAT 05/13/2018 SUZETTE COCHRAN MD, Ot E78.2 MIXED HYPERLIPIDEMIA 05/13/2018 SUZETTE COCHRAN MD, Ot I10 ESSENTIAL (PRIMARY) HYPERTENSION 05/13/2018 SUZETTE COCHRAN MD, Ot I25.10 ATHSCL HEART DISEASE OF [place] CORONARY 05/13/2018 SUZETTE COCHRAN MD Ot 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 05/13/2018 SUZETTE COCHRAN MD Ot M79.7 FIBROMYALGIA 05/13/2018 SUZETTE COCHRAN MD, Ot E78.5 HYPERLIPIDEMIA, UNSPECIFIED 05/13/2018 SUZETTE COCHRAN MD, 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 05/13/2018 SUZETTE COCHRAN MD, Ot I11.0 HYPERTENSIVE HEART DISEASE WITH HEART FA 05/13/2018 SUZETTE COCHRAN MD, Ot I25.10 ATHSCL HEART DISEASE OF [place] CORONARY 05/13/2018 SUZETTE COCHRAN MD Ot I50.9 [...] MD, Ot I25.10 ATHSCL HEART DISEASE OF [place] CORONARY 05/13/2018 SUZETTE COCHRAN MD Ot 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 05/13/2018 SUZETTE COCHRAN MD Ot M79.7 FIBROMYALGIA 05/13/2018 SUZETTE COCHRAN MD, Ot E78.5 HYPERLIPIDEMIA, UNSPECIFIED 05/13/2018 SUZETTE COCHRAN MD 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 05/13/2018 SUZETTE COCHRAN MD Ot I11.0 HYPERTENSIVE HEART DISEASE WITH HEART FA 05/13/2018 SUZETTE COCHRAN MD, Ot I25.10 ATHSCL HEART DISEASE OF [place] CORONARY 05/13/2018 SUZETTE COCHRAN MD Ot I50.9 HEART FAILURE, UNSPECIFIED 05/13/2018 Ot N18.3 CHRONIC KIDNEY DISEASE, STAGE 3 (MODERAT 05/15/2018 Ot N18.3 CHRONIC KIDNEY DISEASE, STAGE 3 (MODERAT 05/17/2018 ANGELITO WAN DO Ot E03.9 HYPOTHYROIDISM, UNSPECIFIED 05/17/2018 ANGELITO WAN DO Ot E78.00 PURE HYPERCHOLESTEROLEMIA, UNSPECIFIED 05/17/2018 ANGEILTO WAN DO Ot F32.9 MAJOR DEPRESSIVE DISORDER, [...] KIDNEY DISEASE W ST 05/18/2018 ANGELITO WAN DO, Ot I25.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 OF 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 [...] Z95.5 PRESENCE OF CORONARY ANGIOPLASTY IMPLANT 05/27/2018 MARICHUY WILLIS MD Ot E03.9 HYPOTHYROIDISM, UNSPECIFIED 05/27/2018 MARICHUY WILLIS MD Ot E78.00 PURE HYPERCHOLESTEROLEMIA, UNSPECIFIED 05/27/2018 MARICHUY WILLIS MD Ot F32.9 MAJOR DEPRESSIVE DISORDER, SINGLE EPISOD 05/27/2018 MARICHUY WILLIS MD Ot F41.9 ANXIETY DISORDER, UNSPECIFIED 05/27/2018 MARICHUY WILLIS MD Ot I11.0 HYPERTENSIVE HEART DISEASE WITH HEART FA 05/27/2018 MARICHUY WILLIS MD Ot I25.10 ATHSCL HEART DISEASE OF [place] CORONARY 05/27/2018 MARICHUY WILLIS MD Ot I50.9 [...] MD Ot I25.10 ATHSCL HEART DISEASE OF [place] CORONARY 05/30/2018 MARICHUY WILLIS MD Ot I50.9 [...] Z95.1 PRESENCE OF AORTOCORONARY BYPASS GRAFT 05/30/2018 ALBA SHERMAN, MARICHUY Hardy Ot Z98.890 OTHER SPECIFIED POSTPROCEDURAL STATES 05/31/2018 ROSITA CRUZ CASSI Ot V49.81 ASYMPT POSTMENOPAUSAL STATUS (AGE-RELATE 05/31/2018 ROSITA CRUZ CASSI Ot V76.12 OTH SCREEN MAMMO-MALIGN NEOPLASM OF [...] MD Ot I25.10 ATHSCL HEART DISEASE OF [place] CORONARY 05/31/2018 SUZETTE COCHRAN MD Ot 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 05/31/2018 SUZETTE COCHRAN MD Ot M79.7 FIBROMYALGIA 05/31/2018 SUZETTE COCHRAN MD, Ot E78.5 HYPERLIPIDEMIA, UNSPECIFIED 05/31/2018 SUZETTE COCHRAN MD 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 05/31/2018 SUZETTE COCHRAN MD Ot I11.0 HYPERTENSIVE HEART DISEASE WITH HEART FA 05/31/2018 SUZETTE COCHRAN MD Ot I25.10 ATHSCL HEART DISEASE OF [place] CORONARY 05/31/2018 DIMAS SHERMAN, SUZETTE Hardy Ot I50.9 HEART FAILURE, UNSPECIFIED 06/04/2018 KEVIN [...] 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 PECTO 06/04/2018 KEVIN ALCARAZ MD Ot I50.23 ACUTE ON CHRONIC SYSTOLIC (CONGESTIVE) H 06/04/2018 KEVIN ALCARAZ MD Ot 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 06/04/2018 KEVIN ALCARAZ MD, Ot J18.1 LOBAR PNEUMONIA, UNSPECIFIED ORGANISM 06/04/2018 KEVIN ALCARAZ MD, Ot J90 PLEURAL EFFUSION, NOT ELSEWHERE CLASSIFI 06/04/2018 KEVIN ALCARAZ MD, Ot K57.90 DVRTCLOS OF INTEST, PART UNSP, W/O PERF 06/04/2018 KEVIN ALCARAZ MD, Ot K58.9 IRRITABLE BOWEL SYNDROME WITHOUT DIARRHE 06/04/2018 KEVIN ALCARAZ MD Ot K76.1 CHRONIC PASSIVE CONGESTION OF LIVER 06/04/2018 KEVIN ALCARAZ MD, Ot K82.8 OTHER SPECIFIED DISEASES OF GALLBLADDER 06/04/2018 KEVIN ALCARAZ MD, Ot K82.9 DISEASE OF GALLBLADDER, UNSPECIFIED 06/04/2018 KEVIN ALCARAZ MD, Ot M19.91 PRIMARY OSTEOARTHRITIS, UNSPECIFIED SITE 06/04/2018 KEVIN ALCARAZ MD Ot M79.7 FIBROMYALGIA 06/04/2018 KEVIN ALCARAZ MD, [...] APRN Ot I25.10 ATHSCL HEART DISEASE OF [place] CORONARY 06/06/2018 ANKITA STOVALL APRN Ot T81.31XA DISRUPTION OF EXTERNAL OPERATION (SURGIC 06/06/2018 ANKITA STOVALL APRN Ot T81.89XA OTH COMPLICATIONS OF PROCEDURES, NEC, IN 06/06/2018 ANKITA STOVALL APRN Ot Z79.82 LONGTERM (CURRENT) USE OF ASPIRIN 06/06/2018 ANKITA STOVALL APRN Ot Z82.49 FAMILY HX OF ISCHEM HEART DIS AND OTH DI 06/06/2018 ANKITA STOVALL APRN Ot Z87.19 PERSONAL HISTORY OF OTHER DISEASES OF TH 06/06/2018 ANKITA STOVALL APRN Ot Z87.440 PERSONAL HISTORY [...] Ot F41.9 ANXIETY DISORDER, UNSPECIFIED 06/12/2018 ANKITA STOVALL APRN Ot G47.30 SLEEP APNEA, UNSPECIFIED 06/12/2018 ANKITA STOVALL APRN Ot I10 ESSENTIAL (PRIMARY) HYPERTENSION 06/12/2018 ANKITA STOVALL APRN Ot I25.10 ATHSCL HEART DISEASE OF [place] CORONARY 06/12/2018 ANKITA STOVALL APRN Ot T81.31XA DISRUPTION OF EXTERNAL OPERATION (SURGIC 06/12/2018 ANKITA STOVALL APRN Ot T81.89XA OTH COMPLICATIONS OF PROCEDURES, NEC, IN 06/12/2018 ANKITA STOVALL APRN Ot Z79.82 HIDE MILL MAN (CURRENT) USE OF ASPIRIN 06/12/2018 ANKITA STOVALL [...] TO OTH DRUG/MEDS/BIOL SUB 06/12/2018 ANKITA STOVALL APRN, Ot Z90.710 ACQUIRED ABSENCE OF BOTH CERVIX AND UTER 06/12/2018 ANKITA STOVALL DISTRICT PLANT SUPERINTENDENT Ot Z95.1 PRESENCE OF AORTOCORONARY BYPASS GRAFT 06/12/2018 ANKITA STOVALL DISTRICT PL[employer] SUPERINTENDENT Ot Z98.890 OTHER SPECIFIED POSTPROCEDURAL STATES 07/09/2018 WILL MALONE DISTRICT [employer] SUPERINTENDENT Ot G47.30 SLEEP APNEA, UNSPECIFIED 07/09/2018 KIRAWILL CARTY DISTRICT [employer] SUPERINTENDENT Ot G47.30 SLEEP APNEA, UNSPECIFIED 07/20/2018 KIRA, WILL E DISTRICT PLANT SUPERINTENDENT Ot G47.10 HYPERSOMNIA, UNSPECIFIED 07/20/2018 KIRA WILL E DISTRICT PL[employer] SUPERINTENDENT Ot G47.33 OBSTRUCTIVE SLEEP APNEA (ADULT) (PEDIATR 07/20/2018 WILL MALONE E DISTRICT PL[employer] SUPERINTENDENT Ot G47.61 PERIODIC LIMB MOVEMENT DISORDER 07/20/2018 PILLO MALONEINE Devorah DISTRICT PLANT SUPERINTENDENT Ot I48.91 UNSPECIFIED ATRIAL FIBRILLATION 07/24/2018 WILL MALONE DISTRICT [employer] SUPERINTENDENT Ot G47.10 HYPERSOMNIA, UNSPECIFIED 07/24/2018 KIRAWILL CARTY DISTRICT PLANT SUPERINTENDENT Ot G47.33 OBSTRUCTIVE SLEEP APNEA (ADULT) (PEDIATR 07/24/2018 KIRAPILLO CARTYINE E DISTRICT PLANT SUPERINTENDENT Ot G47.61 PERIODIC LIMB MOVEMENT DISORDER 07/24/2018 WILL MALONE DISTRICT PL[employer] SUPERINTENDENT Ot I48.91 UNSPECIFIED ATRIAL FIBRILLATION 08/29/2018 WILL MALONE DISTRICT [employer] SUPERINTENDENT Ot G47.30 SLEEP APNEA, UNSPECIFIED 08/29/2018 WILL MALONE DISTRICT [employer] SUPERINTENDENT Ot G47.30 SLEEP APNEA, UNSPECIFIED 09/10/2018 SUZETTE COCHRAN MD Ot E78.5 HYPERLIPIDEMIA, UNSPECIFIED 09/10/2018 SUZETTE COCHRAN MD Ot F32.9 MAJOR DEPRESSIVE DISORDER, SINGLE EPISOD 09/10/2018 SUZETTE COCHRAN MD Ot I13.0 HYP HRT CHR KDNY DIS W HRT FAIL AND ST 09/10/2018 SUZETTE COCHRAN MD Ot I25.10 ATHSCL HEART DISEASE OF [place] CORONARY 09/10/2018 SUZETTE COCHRAN MD Ot I34.0 NONRHEUMATIC MITRAL (VALVE) INSUFFICIENC 09/10/2018 SUZETTE COCHRAN MD Ot I50.22 CHRONIC SYSTOLIC (CONGESTIVE) HEART FAIL 09/10/2018 SUZETTE COCHRAN MD Ot 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 09/10/2018 SUZETTE COCHRAN MD Ot Z79.899 OTHER LONGTERM (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 09/10/2018 SUZETTE COCHRAN MD Ot Z88.0 ALLERGY STATUS TO PENICILLIN 09/10/2018 SUZETTE COCHRAN MD Ot Z88.5 ALLERGY STATUS TO NARCOTIC AGENT STATUS 09/10/2018 SUZETTE COCHRAN MD Ot Z95.1 PRESENCE OF AORTOCORONARY BYPASS GRAFT 09/11/2018 SUZETTE COCHRAN MD Ot E78.5 HYPERLIPIDEMIA, UNSPECIFIED 09/11/2018 SUZETTE COCHRAN MD Ot F32.9 MAJOR DEPRESSIVE DISORDER, SINGLE EPISOD 09/11/2018 SUZETTE COCHRAN MD Ot I13.0 HYP HRT CHR KDNY DIS W HRT FAIL AND ST 09/11/2018 SUZETTE COCHRAN MD Ot I25.10 ATHSCL HEART DISEASE OF [place] CORONARY 09/11/2018 SUZETTE COCHRAN MD Ot I34.0 NONRHEUMATIC MITRAL (VALVE) INSUFFICIENC 09/11/2018 SUZETTE COCHRAN MD Ot I50.22 CHRONIC SYSTOLIC (CONGESTIVE) HEART FAIL 09/11/2018 SUZETTE COCHRAN MD Ot 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 09/11/2018 SUZETTE COCHRAN MD Ot Z79.899 OTHER LONGTERM (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 09/11/2018 SUZETTE COCHRAN MD Ot Z88.0 ALLERGY STATUS TO PENICILLIN 09/11/2018 SUZETTE COCHRAN MD Ot Z88.5 ALLERGY STATUS TO NARCOTIC AGENT STATUS 09/11/2018 SUZETTE COCHRAN MD Ot Z95.1 PRESENCE OF AORTOCORONARY BYPASS GRAFT 09/12/2018 SUZETTE COCHRAN MD Ot E78.5 HYPERLIPIDEMIA, UNSPECIFIED 09/12/2018 SUZETTE COCHRAN MD Ot F32.9 MAJOR DEPRESSIVE DISORDER, SINGLE EPISOD 09/12/2018 SUZETTE COCHRAN MD Ot I13.0 HYP HRT CHR KD[place] DIS W HRT FAIL AND ST 09/12/2018 SUZETTE COCHRAN MD Ot I25.10 ATHSCL HEART DISEASE OF [place] CORONARY 09/12/2018 SUZETTE COCHRAN MD Ot I34.0 NONRHEUMATIC MITRAL (VALVE) INSUFFICIENC 09/12/2018 SUZETTE COCHRAN MD Ot I50.22 CHRONIC SYSTOLIC (CONGESTIVE) HEART FAIL 09/12/2018 SUZETTE COCHRAN MD Ot 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 09/12/2018 SUZETTE COCHRAN MD Ot Z79.899 OTHER LONGTERM (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 09/12/2018 SUZETTE COCHRAN MD, Ot Z88.0 ALLERGY STATUS TO PENICILLIN 09/12/2018 SUZETTE COCHRAN MD, Ot Z88.5 ALLERGY STATUS TO NARCOTIC AGENT STATUS 09/12/2018 SUZETTE COCHRAN MD, Ot Z95.1 PRESENCE OF AORTOCORONARY BYPASS GRAFT 09/17/2018 SUZETTE COCHRAN MD Ot E78.5 HYPERLIPIDEMIA, UNSPECIFIED 09/17/2018 SUZETTE COCHRAN MD, Ot I11.0 HYPERTENSIVE HEART DISEASE WITH HEART FA 09/17/2018 SUZETTE COCHRAN MD Ot I25.10 ATHSCL HEART DISEASE OF [place] CORONARY 09/17/2018 SUZETTE COCHRAN MD Ot I50.9 HEART FAILURE, UNSPECIFIED 09/27/2018 WILL MALONE APRN Ot G47.30 SLEEP APNEA, UNSPECIFIED 09/27/2018 WILL MALONE [employer] SUPERINTENDENT Ot G47.30 SLEEP APNEA, UNSPECIFIED 09/27/2018 WILL MALONE [employer] SUPERINTENDENT Ot G47.30 SLEEP APNEA, UNSPECIFIED 09/28/2018 WILL MALONE [employer] SUPERINTENDENT Ot G47.30 SLEEP APNEA, UNSPECIFIED 09/28/2018 WILL MALONE [employer] SUPERINTENDENT Ot I50.9 HEART FAILURE, UNSPECIFIED 09/28/2018 WILL MALONE [employer] SUPERINTENDENT Ot M79.7 FIBROMYALGIA 09/30/2018 WILL MALONE [employer] SUPERINTENDENT Ot G47.30 SLEEP APNEA, UNSPECIFIED 09/30/2018 WILL MALONE [employer] SUPERINTENDENT Ot I50.9 HEART FAILURE, UNSPECIFIED 09/30/2018 WILL MALONE [employer] SUPERINTENDENT Ot M79.7 FIBROMYALGIA 01/19/2019 ROSITA CRUZ Ot V49.81 ASYMPT POSTMENOPAUSAL STATUS (AGE-RELATE 01/19/2019 ROSITA CRUZP Ot V76.12 OTH SCREEN MAMMO-MALIGN NEOPLASM OF [place] 01/19/2019 ESA BETTS Ot 401.9 HYPERTENSION NOS 01/19/2019 ESA BETTS Ot 414.00 CORON ATHEROSCLER NOS TYPE VESSEL, NATIV 01/19/2019 ESA BETTS Ot 426.4 RT BUNDLE BRANCH BLOCK 01/19/2019 ESA BETTS Ot 428.0 CONGESTIVE HEART FAILURE NOS 01/19/2019 ESA BETTS Ot 272.4 HYPERLIPIDEMIA NEC/NOS 01/19/2019 ESA BETTS Ot 414.9 CHR ISCHEMIC HRT DIS NOS 01/19/2019 ESA BETTS Ot 428.0 CONGESTIVE HEART FAILURE NOS 01/19/2019 ESA BETTS Ot 433.10 CAROTID ARTERY OCCLUSION W O CEREBRAL IN 01/19/2019 Ot N18.3 CHRONIC KIDNEY DISEASE, STAGE 3 (MODERAT 01/19/2019 SUZETTE COCHRAN MD Ot E78.2 MIXED HYPERLIPIDEMIA 01/19/2019 SUZETTE COCHRAN MD Ot I10 ESSENTIAL (PRIMARY) HYPERTENSION 01/19/2019 SUZETTE COCHRAN MD, Ot I25.10 ATHSCL HEART DISEASE OF [place] CORONARY 01/19/2019 SUZETTE COCHRAN MD Ot 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 01/19/2019 SUZETTE COCHRAN MD Ot M79.7 FIBROMYALGIA 01/19/2019 SUZETTE COCHRAN MD Ot E78.5 HYPERLIPIDEMIA, UNSPECIFIED 01/19/2019 SUZETTE COCHRAN MD 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 01/19/2019 SUZETTE COCHRAN MD Ot I11.0 HYPERTENSIVE HEART DISEASE WITH HEART FA 01/19/2019 SUZETTE COCHRAN MD Ot I25.10 ATHSCL HEART DISEASE OF [place] CORONARY 01/19/2019 SUZETTE COCHRAN MD Ot I50.9 HEART FAILURE, UNSPECIFIED 01/19/2019 SUZETTE COCHRAN MD Ot E78.5 HYPERLIPIDEMIA, UNSPECIFIED 01/19/2019 SUZETTE COCHRAN MD Ot I11.0 HYPERTENSIVE HEART DISEASE WITH HEART FA 01/19/2019 SUZETTE COCHRAN MD Ot I25.10 ATHSCL HEART DISEASE OF [place] CORONARY 01/19/2019 SUZETTE COCHRAN MD J Ot I50.9 HEART FAILURE, UNSPECIFIED 01/19/2019 MG DO, ETHEL Hardy Ot Z12.31 ENCNTR SCREEN MAMMOGRAM FOR MALIGNANT NE 01/19/2019 MGETHEL MCDERMOTT DO Ot Z12.31 ENCNTR SCREEN MAMMOGRAM FOR MALIGNANT NE 01/27/2019 MG DO, ETHEL J Ot F33.8 OTHER RECURRENT DEPRESSIVE DISORDERS 01/27/2019 MG DO, ETHEL Hardy Ot G47.33 OBSTRUCTIVE SLEEP APNEA (ADULT) (PEDIATR 01/27/2019 MG DO, ETHEL J Ot I25.10 ATHSCL HEART DISEASE OF [place] CORONARY 01/27/2019 MG DO, ETHEL J Ot N18.3 CHRONIC KIDNEY DISEASE, STAGE 3 (MODERAT 01/27/2019 MG DOETHEL Ot Z12.31 ENCNTR SCREEN MAMMOGRAM FOR MALIGNANT NE 02/10/2019 NISHI SHERMAN, CALDERON Schilling Ot N18.3 CHRONIC KIDNEY DISEASE, STAGE 3 (MODERAT 02/17/2019 MGETHEL KHANNA DO Ot F33.8 OTHER RECURRENT DEPRESSIVE DISORDERS 02/17/2019 MG DO, ETHEL Hardy Ot G47.33 OBSTRUCTIVE SLEEP APNEA (ADULT) (PEDIATR 02/17/2019 MG DO, ETHEL J Ot I25.10 ATHSCL HEART DISEASE OF [place] CORONARY 02/17/2019 MG DO, ETHEL J Ot N18.3 CHRONIC KIDNEY DISEASE, STAGE 3 (MODERAT 02/17/2019 MG DOETHEL Ot Z12.31 ENCNTR SCREEN MAMMOGRAM FOR MALIGNANT NE 02/18/2019 ROSITA CRUZ GENERAL MANAGER [employer]D Ot V49.81 ASYMPT POSTMENOPAUSAL STATUS (AGE-RELATE 02/18/2019 ROSITA CRUZ GENERAL MANAGER [employer] Ot V76.12 OTH SCREEN MAMMO-MALIGN NEOPLASM OF [place] 02/18/2019 ESA BETTS Ot 401.9 HYPERTENSION NOS 02/18/2019 ESA BETTS Ot 414.00 CORON ATHEROSCLER NOS TYPE VESSEL, NATIV 02/18/2019 ESA BETTS Ot 426.4 RT BUNDLE BRANCH BLOCK 02/18/2019 ESA BETTS Ot 428.0 CONGESTIVE HEART FAILURE NOS 02/18/2019 ESA BETTS Ot 272.4 HYPERLIPIDEMIA NEC/NOS 02/18/2019 ESA BETTS Ot 414.9 CHR ISCHEMIC HRT DIS NOS 02/18/2019 ESA BETTS Ot 428.0 CONGESTIVE HEART FAILURE NOS 02/18/2019 ESA BETTS Ot 433.10 CAROTID ARTERY OCCLUSION W O CEREBRAL IN 02/18/2019 Ot N18.3 CHRONIC KIDNEY DISEASE, STAGE 3 (MODERAT 02/18/2019 SUZETTE COCHRAN MD Ot E78.2 MIXED HYPERLIPIDEMIA 02/18/2019 SUZETTE COCHRAN MD Ot I10 ESSENTIAL (PRIMARY) HYPERTENSION 02/18/2019 SUZETTE COCHRAN MD Ot I25.10 ATHSCL HEART DISEASE OF [place] CORONARY 02/18/2019 SUZETTE COCHRAN MD Ot 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 02/18/2019 SUZETTE COCHRAN MD Ot M79.7 FIBROMYALGIA 02/18/2019 SUZETTE COCHRAN MD Ot E78.5 HYPERLIPIDEMIA, UNSPECIFIED 02/18/2019 SUZETTE COCHRAN MD 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 02/18/2019 SUZETTE COCHRAN MD Ot I11.0 HYPERTENSIVE HEART DISEASE WITH HEART FA 02/18/2019 SUZETTE COCHRAN MD Ot I25.10 ATHSCL HEART DISEASE OF [place] CORONARY 02/18/2019 SUZETTE COCHRAN MD Ot I50.9 HEART FAILURE, UNSPECIFIED 02/18/2019 SUZETTE COCHRAN MD Ot E78.5 HYPERLIPIDEMIA, UNSPECIFIED 02/18/2019 SUZETTE COCHRAN MD Ot I11.0 HYPERTENSIVE HEART DISEASE WITH HEART FA 02/18/2019 SUZETTE COCHRAN MD Ot I25.10 ATHSCL HEART DISEASE OF [place] CORONARY 02/18/2019 SUZETTE COCHRAN MD Ot I50.9 HEART FAILURE, UNSPECIFIED 02/18/2019 ETHEL MG DO Ot F33.8 OTHER RECURRENT DEPRESSIVE DISORDERS 02/18/2019 ETHEL MG DO Ot G47.33 OBSTRUCTIVE SLEEP APNEA (ADULT) (PEDIATR 02/18/2019 ETHEL MG DO Ot I25.10 ATHSCL HEART DISEASE OF [place] CORONARY 02/18/2019 ETHEL MG DO Ot N18.3 CHRONIC KIDNEY DISEASE, STAGE 3 (MODERAT 02/18/2019 ETHEL MG DO Ot Z12.31 ENCNTR SCREEN MAMMOGRAM FOR MALIGNANT NE 02/18/2019 NISHI SHERMAN, CALDERON Schilling Ot N18.3 CHRONIC KIDNEY DISEASE, STAGE 3 (MODERAT Procedures Code Description Performed By Performed On 45.16 ESOPHAGOGASTRODUODENOSCOPY [EGD] W/CLOSE 05/23/2012 27956 PSYCH DIAGNOSTIC EVALUATION 09/25/2012 13724 PSYTX PT&/FAMILY 45 MINUTES 11/20/2012 98705 PSYTX PT&/FAMILY 45 MINUTES 01/06/2013 71373 PSYTX PT&/FAMILY 45 MINUTES 03/05/2013 34136 SLEEP STUDY 04/10/2013 70265 PSYTX PT&/FAMILY 45 MINUTES 04/13/2013 70743 PSYTX PT&/FAMILY 45 MINUTES 05/01/2013 90386 PSYTX PT&/FAMILY 45 MINUTES 08/21/2013 69836 PSYTX PT&/FAMILY 45 MINUTES 09/08/2013 27644 PSYTX PT&/FAMILY 45 MINUTES 09/23/2013 90241 PSYTX PT&/FAMILY 45 MINUTES 11/10/2013 [id number] RESECTION OF RIGHT LARGE INTESTINE, OPEN 05/13/2018 [id number] REPAIR ABDOMINAL WALL, OPEN APPROACH 05/13/2018 Results Test Result Range 24 hour urine creatinine panel - 09/05/16 10:30 Urine creatinine measurement (mass/volume) 90 mg/dL 30-125 24 hour urine specimen volume measurement 800 [...] Automated erythrocyte mean corpuscular hemoglobin concentration measurement (mass/volume) 34 g/dL 32-36 Automated erythrocyte distribution width ratio 12.3 % 10.0- 14.5 Automated blood platelet count (count/volume) 165 10*3/uL [...] Blood monocytes automated count (number/volume) 0.4 10*3 0.0- 1.0 Automated eosinophil count 0.2 10*3/uL 0.0-0.3 Automated [...] Serum or plasma aspartate aminotransferase measurement (enzymatic activity/volume) 26 U/L 5-34 Serum or plasma alanine aminotransferase measurement (enzymatic activity/volume) 16 U/L 0-55 Serum or plasma protein measurement (mass/volume) 6.8 g/dL 6.4-8.2 Serum or plasma albumin measurement (mass/volume) 4.0 g/dL 3.2-4.5 CALCIUM CORRECTED 9.6 mg/dL 8.5-10.1 Lipase - 05/13/18 11:53 Lipase 21 U/L 8-78 Bacterial urine culture - 05/13/18 12:48 Bacterial urine culture [id number] NRG COLONY COUNT >100,000/ML NRG FTX;REPORTABLE ID/SENSITIVITY REPORTED 05/15/18 12:05 NRG RML Sensitivity Panel - 05/13/18 12:48 Gentamicin susceptibility test by minimum inhibitory concentration <= NRG Trimethoprim/sulfamethoxazole susceptibility test by minimum inhibitoryconcentration <= NRG Levofloxacin susceptibility test by minimum inhibitory concentration <= NRG Ampicillin susceptibility test by minimum inhibitory concentration > NRG Cefazolin susceptibility test by minimum inhibitory concentration <= NRG Ceftriaxone susceptibility test by minimum inhibitory concentration <= NRG Ciprofloxacin susceptibility test by minimum inhibitory concentration <= NRG Meropenem susceptibility test by minimum inhibitory concentration <= NRG Nitrofurantoin susceptibility test by minimum inhibitory [...] Automated erythrocyte mean corpuscular hemoglobin concentration measurement (mass/volume) 34 g/dL 32-36 Automated erythrocyte distribution width ratio 12.6 % 10.0- 14.5 Automated blood platelet count (count/volume) 141 10*3/uL [...] Automated erythrocyte mean corpuscular hemoglobin concentration measurement (mass/volume) 33 g/dL 32-36 Automated erythrocyte distribution width ratio 12.6 % 10.0- 14.5 Automated blood platelet count (count/volume) 106 10*3/uL [...] Blood monocytes automated count (number/volume) 0.5 10*3 0.0- 1.0 Automated eosinophil count 0.3 10*3/uL 0.0-0.3 Automated [...] Automated erythrocyte mean corpuscular hemoglobin concentration measurement (mass/volume) 33 g/dL 32-36 Automated erythrocyte distribution width ratio 12.3 % 10.0- 14.5 Automated blood platelet count (count/volume) 129 10*3/uL [...] Automated erythrocyte mean corpuscular hemoglobin concentration measurement (mass/volume) 33 g/dL 32-36 Automated erythrocyte distribution width ratio 12.5 % 10.0- 14.5 Automated blood platelet count (count/volume) 133 10*3/uL [...] Serum or plasma aspartate aminotransferase measurement (enzymatic activity/volume) 44 U/L 5-34 Serum or plasma alanine aminotransferase measurement (enzymatic activity/volume) 8 U/L 0-55 Serum or plasma protein measurement (mass/volume) 5.2 g/dL 6.4-8.2 Serum or plasma albumin measurement (mass/volume) 2.7 g/dL 3.2-4.5 CALCIUM CORRECTED 10.0 mg/dL 8.5-10.1 Capillary blood glucose measurement by glucometer (mass/volume) - 05/31/18 11:02 Capillary blood glucose measurement by glucometer (mass/volume) [...] Automated erythrocyte mean corpuscular hemoglobin concentration measurement (mass/volume) 33 g/dL 32-36 Automated erythrocyte distribution width ratio 13.7 % 10.0- 14.5 Automated blood platelet count (count/volume) 413 10*3/uL [...] Blood monocytes automated count (number/volume) 1.1 10*3 0.0- 1.0 Automated eosinophil count 0.2 10*3/uL 0.0-0.3 Automated [...] Serum or plasma aspartate aminotransferase measurement (enzymatic activity/volume) 833 U/L 5-34 Serum or plasma alanine aminotransferase measurement (enzymatic activity/volume) 435 U/L 0-55 Serum or plasma protein [...] gravity of urine by test strip 1.015 1.016-1.022 Urine protein assay by test strip, semi-quantitative [...] sediment leukocyte count by microscopy (number/high power field) [HPF] NRG Bacteria detection in urine sediment [...] Blood lactic acid measurement (moles/volume) 2.37 mmol/L 0.50- 2.00 Serum or plasma lithium measurement (moles/volume) - 05/31/18 11:44 BNP level 4576.7 pg/mL <100.0 Bacterial blood culture - 05/31/18 11:44 FREE TEXT EXTERNAL RML REPORTED ID 06/03/18 12:05 NRG QUANTITY OF GROWTH Isolated NRG Bacterial blood culture [id number] NR FREE TEXT ENTRY 2 RML REPORTED [...] or plasma troponin i.cardiac measurement (mass/volume) 1.38 ng/mL <0.30 Complete blood count (CBC) with automated [...] Automated erythrocyte mean corpuscular hemoglobin concentration measurement (mass/volume) 33 g/dL 32-36 Automated erythrocyte distribution width ratio 13.6 % 10.0- 14.5 Automated blood platelet count (count/volume) 376 10*3/uL [...] Blood monocytes automated count (number/volume) 0.9 10*3 0.0- 1.0 Automated eosinophil count 0.3 10*3/uL 0.0-0.3 Automated [...] Serum or plasma aspartate aminotransferase measurement (enzymatic activity/volume) 508 U/L 5-34 Serum or plasma alanine aminotransferase measurement (enzymatic activity/volume) 332 U/L 0-55 Serum or plasma protein [...] Automated erythrocyte mean corpuscular hemoglobin concentration measurement (mass/volume) 32 g/dL 32-36 Automated erythrocyte distribution width ratio 14.0 % 10.0- 14.5 Automated blood platelet count (count/volume) 346 10*3/uL [...] Serum or plasma aspartate aminotransferase measurement (enzymatic activity/volume) 243 U/L 5-34 Serum or plasma alanine aminotransferase measurement (enzymatic activity/volume) 242 U/L 0-55 Serum or plasma protein measurement (mass/volume) 5.8 g/dL 6.4-8.2 Serum or plasma albumin measurement (mass/volume) 3.1 g/dL 3.2-4.5 CALCIUM CORRECTED 9.4 mg/dL 8.5-10.1 Serum or plasma troponin i.cardiac measurement (mass/volume) - 06/02/18 05:44 Serum or plasma troponin i.cardiac measurement (mass/volume) 1.17 ng/mL <0.30 PT panel in platelet poor plasma [...] Automated erythrocyte mean corpuscular hemoglobin concentration measurement (mass/volume) 32 g/dL 32-36 Automated erythrocyte distribution width ratio 14.2 % 10.0- 14.5 Automated blood platelet count (count/volume) 309 10*3/uL [...] Serum or plasma aspartate aminotransferase measurement (enzymatic activity/volume) 116 U/L 5-34 Serum or plasma alanine aminotransferase measurement (enzymatic activity/volume) 166 U/L 0-55 Serum or plasma protein measurement (mass/volume) 5.4 g/dL 6.4-8.2 Serum or plasma albumin measurement (mass/volume) 2.9 g/dL 3.2-4.5 CALCIUM CORRECTED 9.5 mg/dL 8.5-10.1 Gram stain microscopy - 06/06/18 17:15 Gram stain microscopy No bacteria seen NRG Bacteria identification in wound by culture - 06/06/18 17:15 Bacteria identification in wound by culture NR Complete urinalysis with reflex to culture - 09/10/18 06:50 Urine color determination YELLOW NRG Urine clarity determination CLEAR NRG Urine pH measurement by test strip 6 5-9 Specific gravity of urine by test strip 1.020 1.016-1.022 Urine protein assay by test strip, semi-quantitative NEGATIVE NEGATIVE Urine glucose detection by automated test strip NEGATIVE NEGATIVE Erythrocytes detection in urine sediment by light microscopy NEGATIVE NEGATIVE Urine ketones detection by automated test strip NEGATIVE NEGATIVE Urine nitrite detection by test strip NEGATIVE NEGATIVE Urine total bilirubin detection by test strip NEGATIVE NEGATIVE Urine urobilinogen measurement by automated test strip (mass/volume) NORMAL NORMAL Urine leukocyte esterase detection by dipstick NEGATIVE NEGATIVE Automated urine sediment erythrocyte count by microscopy (number/high power field) NONE NRG Automated urine sediment leukocyte count by microscopy (number/high power field) [HPF] NRG Bacteria detection in urine sediment by light microscopy TRACE NRG Squamous epithelial cells detection in urine sediment by light microscopy 2-5 NRG Crystals detection in urine sediment by light microscopy NONE NRG Casts detection in urine sediment by light microscopy PRESENT NRG Mucus detection in urine sediment by light microscopy NEGATIVE NRG Complete urinalysis with reflex to culture NO NRG Hyaline casts detection in urine sediment by light microscopy 5-10 NRG Automated blood complete blood count (hemogram) panel - 09/10/18 06:59 Blood leukocytes automated count (number/volume) 5.9 10*3/uL 4.3-11.0 Blood erythrocytes automated count (number/volume) 4.01 10*6/uL 4.35-5.85 Venous blood hemoglobin measurement (mass/volume) 12.7 g/dL 11.5-16.0 Blood hematocrit (volume fraction) 39 % 35-52 Automated erythrocyte mean corpuscular volume 98 [foz_us] 80-99 Automated erythrocyte mean corpuscular hemoglobin (mass per erythrocyte) 32 pg 25-34 Automated erythrocyte mean corpuscular hemoglobin concentration measurement (mass/volume) 33 g/dL 32-36 Automated erythrocyte distribution width ratio 14.0 % 10.0- 14.5 Automated blood platelet count (count/volume) 199 10*3/uL 130-400 Automated blood platelet mean volume measurement 9.2 [foz_us] 7.4-10.4 PT panel in platelet poor plasma by coagulation assay - 09/10/18 06:59 Prothrombin time (PT) in platelet poor plasma by coagulation assay 13.2 s 12.2-14.7 INR in platelet poor plasma or blood by coagulation assay 1.0 0.8-1.4 Activated partial thromboplastin time (aPTT) in platelet poor plasma bycoagulation assay - 09/10/18 06:59 Activated partial thromboplastin time (aPTT) in platelet poor plasma bycoagulation assay 29 s 24-35 Comprehensive metabolic panel - 09/10/18 06:59 Serum or plasma sodium measurement (moles/volume) 135 mmol/L 135-145 Serum or plasma potassium measurement (moles/volume) 3.3 mmol/L 3.6-5.0 Serum or plasma chloride measurement (moles/volume) 98 mmol/L 98-107 Carbon dioxide 28 mmol/L 21-32 Serum or plasma anion gap determination (moles/volume) 9 mmol/L 5-14 Serum or plasma urea nitrogen measurement (mass/volume) 17 mg/dL 7-18 Serum or plasma creatinine measurement (mass/volume) 1.58 mg/dL 0.60-1.30 Serum or plasma urea nitrogen/creatinine mass ratio 11 NRG Serum or plasma creatinine measurement with calculation of estimated glomerular filtration rate 32 NRG Serum or plasma glucose measurement (mass/volume) 90 mg/dL 70-105 Serum or plasma calcium measurement (mass/volume) 9.4 mg/dL 8.5-10.1 Serum or plasma total bilirubin measurement (mass/volume) 0.6 mg/dL 0.1-1.0 Serum or plasma alkaline phosphatase measurement (enzymatic activity/volume) 79 U/L 40-136 Serum or plasma aspartate aminotransferase measurement (enzymatic activity/volume) 32 U/L 5-34 Serum or plasma alanine aminotransferase measurement (enzymatic activity/volume) 18 U/L 0-55 Serum or plasma protein measurement (mass/volume) 6.7 g/dL 6.4-8.2 Serum or plasma albumin measurement (mass/volume) 4.0 g/dL 3.2-4.5 CALCIUM CORRECTED 9.4 mg/dL 8.5-10.1 Lipid 1996 panel - 09/10/18 06:59 Serum or plasma triglyceride measurement (mass/volume) 109 mg/dL <150 Serum or plasma cholesterol measurement (mass/volume) 190 mg/dL < 200 Serum or plasma cholesterol in HDL measurement (mass/volume) 73 mg/dL 40-60 Cholesterol in LDL [mass/volume] in serum or plasma by direct assay 84 mg/dL 1-129 Serum or plasma cholesterol in VLDL measurement (mass/volume) 22 mg/dL 5-40 Methicillin resistant Staphylococcus aureus (MRSA) screening culture - 09/10/18 06:59 Methicillin resistant Staphylococcus aureus (MRSA) screening culture NEG NRG Encounters ACCT No. Visit Date/Time Discharge Status Pt. Type Provider Facility Loc./Unit Complaint [id number] 02/25/2014 15:48:00 02/25/2014 23:59:59 CLS Outpatient CODY RODRIGUEZ APRN [id number] 02/25/2014 15:48:00 02/25/2014 23:59:59 CLS Outpatient [facility] [employer] [id number] 11/26/2013 09:48:00 11/26/2013 23:59:59 CLS Outpatient DAVID ALAN MD [id number] 11/10/2013 17:55:00 11/10/2013 23:59:59 CLS Outpatient ALCIDES SEPULVEDA PHD [id number] 09/22/2013 16:49:00 09/22/2013 23:59:59 CLS Outpatient ALCIDES SEPULVEDA PHD [id number] 09/08/2013 15:53:00 09/08/2013 23:59:59 CLS Outpatient ALCIDES SEPULVEDA PHD [id number] 08/21/2013 15:57:00 08/21/2013 23:59:59 CLS Outpatient ALCIDES SEPULVEDA PHD [id number] 08/20/2013 09:49:00 08/20/2013 23:59:59 CLS Outpatient DAVID ALAN MD [id number] 04/28/2013 15:54:00 04/28/2013 23:59:59 CLS Outpatient ALCIDES SEPULVEDA PHD [id number] 04/10/2013 14:55:00 04/10/2013 23:59:59 CLS Outpatient ALCIDES SEPULVEDA PHD [id number] 09/19/2012 11:27:00 09/19/2012 23:59:59 CLS Outpatient SOLEDAD MAYER DO [id number] 08/04/2012 14:29:00 08/04/2012 23:59:59 [place] [id number] 08/31/2011 14:27:00 08/31/2011 23:59:59 CLS Outpatient [id number] 08/31/2011 14:27:00 08/31/2011 23:59:59 CLS Outpatient [id number] 03/04/2013 14:49:00 Document Registration [id number] 01/06/2013 09:59:00 Document Registration [id number] 11/19/2012 12:48:00 Document Registration [id number] 02/18/2019 17:13:00 02/18/2019 17:55:00 DIS Emergency ANKITA STOVALL APRN [facility] ER [place] [facility] [id number] 02/06/2019 10:29:00 02/06/2019 23:59:59 CLS Outpatient NISHI SHERMAN, CALDERON Ced[facility] RAD CHRONIC KIDNEY DISEASE STAGE 3 [id number] 01/26/2019 14:25:00 01/26/2019 23:59:59 CLS Outpatient ETHEL MG DO [facility] RAD SCREENING [id number] 09/27/2018 19:54:00 09/28/2018 06:05:00 DIS Outpatient WILL MALONE APRN [facility] SLEEP SLEEP APNEA,CHF [id number] 09/10/2018 06:36:00 09/10/2018 13:40:00 DIS Outpatient SUZETTE COCHRAN MD [facility] CATH ABN STRESS TEST, CAD, CHF, HTN, HLP [id number] 08/27/2018 07:20:00 08/27/2018 23:59:59 CLS Outpatient SUZETTE COCHRAN MD [facility] CARD CAD, CHF, HTN, HYPERLIPIDEMIA [id number] 07/19/2018 19:59:00 07/20/2018 06:15:00 DIS Outpatient WILL MALONE APRN [facility] SLEEP SLEEP APNEA [id number] 06/06/2018 16:54:00 06/06/2018 17:30:00 DIS Emergency ANKITA STOVALL APRN [facility] ER POST OP/INCISION OOZING [id number] 05/31/2018 12:55:00 06/04/2018 17:30:00 DIS Inpatient LISSA SHERMAN, KEVIN Vázquez [facility] 4TH LLL PNEUMONIA,ELEVATED LFT,FLUID OVERLOAD [id number] 05/27/2018 08:50:00 05/27/2018 10:49:00 DIS Emergency MARICHUY WILLIS MD [facility] ER ANXIETY;SOB [id number] 05/13/2018 15:20:00 05/18/2018 13:25:00 DIS Inpatient ANGELITO WAN DO [facility] 4TH CECAL VOLVULUS,UTI [id number] 01/13/2018 11:19:00 01/13/2018 23:59:59 CLS Outpatient SUZETTE COCHRAN MD [facility] CARD I25.10 CAD [id number] 01/17/2017 12:51:00 01/17/2017 23:59:59 CLS Outpatient SUZETTE COCHRAN MD [facility] CARD CAD I25.10 [id number] 09/05/2016 11:05:00 09/05/2016 23:59:59 CLS Outpatient ETHEL MG DO [facility] LAB N18.3 [id number] 09/21/2015 11:55:00 09/21/2015 18:55:00 DIS Outpatient SUZETTE COCHRAN MD [facility] CATH UNSTABLE ANGINA, CAD, HTN,HLP [id number] 02/17/2015 10:02:00 02/17/2015 23:59:59 CLS Outpatient ESA BETTS [facility] CARD CAD,CHF,MODESTA,HLP [id number] 06/15/2014 11:44:00 06/15/2014 23:59:59 CLS Outpatient ESA BETTS [facility] CARD CAD,CHF,HTN [id number] 05/08/2014 12:07:00 05/09/2014 13:15:00 DIS Inpatient SUZETTE COCHRAN MD [facility] CSD HYPOTENSION ATYPICAL CHEST PAIN [id number] 10/22/2013 09:21:00 10/22/2013 23:59:59 CLS Outpatient ROSITA CRUZ [facility] RAD SCREENING,POST MENAPAUSAL STATUS [id number] 06/09/2013 19:51:00 06/10/2013 06:25:00 DIS Outpatient RAY GAMBOA MD [facility] SLEEP KRISTAL [id number] 04/29/2013 20:58:00 04/30/2013 07:10:00 DIS Outpatient SOLEDAD MAYER DO [facility] SLEEP KRISTAL,INSOMNIA [id number] 04/01/2013 21:23:00 04/01/2013 23:28:00 DIS Emergency TRUDY LANGFORD [facility] ER FALL/RIGHT RING FINGER INJURY [id number] 03/19/2013 19:06:00 03/19/2013 23:59:59 CLS Outpatient [id number] 01/31/2013 11:45:00 01/31/2013 23:59:59 CLS Outpatient [id number] 12/03/2016 00:00:00 Document Registration [id number] 09/19/2015 12:20:00 Document Registration [id number] 09/19/2015 12:20:00 Document Registration [id number] 09/10/2012 08:52:00 Document Registration [id number] 09/02/2012 10:25:00 Document Registration [id number] 05/21/2012 11:55:00 Document Registration [id number] 05/20/2012 08:59:00 Document Registration [id number] 04/25/2012 21:02:00 Document Registration [id number] 07/31/2011 13:00:00 Document Registration [id number] 07/31/2011 12:57:00 Document Registration [id number] 06/01/2011 09:17:00 Document Registration [id number] 04/26/2011 15:23:00 Document Registration [id number] 04/20/2011 06:50:00 Document Registration [id number] 03/06/2011 07:04:00 Document Registration [id number] 06/22/2010 09:22:00 Document Registration [id number] 05/09/2010 09:42:00 Document Registration [id number] 04/24/2010 06:30:00 Document Registration [id number] 03/30/2010 06:39:00 Document Registration [id number] 02/04/2019 14:40:00 02/04/2019 23:59:59 CLS Outpatient LIZZY ALEX [facility]
== END ==
LOC: EDUNIT# 10:13 → ER 10:15
DX: S80.01XA Contusion of right knee, initial encounter (principal); I10 Essential (primary) hypertension; I25.10 Atherosclerotic heart disease of native coronary artery without angina pectoris; E78.00 Pure hypercholesterolemia, unspecified; G47.30 Sleep apnea, unspecified; K58.9 Irritable bowel syndrome, unspecified; M79.7 Fibromyalgia; E03.9 Hypothyroidism, unspecified; F41.9 Anxiety disorder, unspecified; F32.9 Major depressive disorder, single episode, unspecified; Z99.89 Dependence on other enabling machines and devices; Z87.440 Personal history of urinary (tract) infections; Z87.19 Personal history of other diseases of the digestive system; Z88.5 Allergy status to narcotic agent; Z88.1 Allergy status to other antibiotic agents; Z88.8 Allergy status to other drugs, medicaments and biological substances; Z79.82 Long term (current) use of aspirin; Z90.710 Acquired absence of both cervix and uterus; Z95.1 Presence of aortocoronary bypass graft; Z82.49 Family history of ischemic heart disease and other diseases of the circulatory system; W01.0XXA Fall on same level from slipping, tripping and stumbling without subsequent striking against object, initial encounter; Y92.009 Unspecified place in unspecified non-institutional (private) residence as the place of occurrence of the external cause
CPT/HCPCS: 73562; 99283

== ENCOUNTER 2019-02-26 17:48 | Emergency (ER) | payer MEDICARE, OTHER ==
[~2019-02-26] VITALS: Ht 160 cm; Wt 68.0 kg
[2019-02-26 17:59] VITALS: BP 132/68
--- OUTSIDE RECORDS SUMMARY | 2019-02-27 03:37 | XMS REPORT | Continuity of Care Document ---
Author Organization Unknown Address Unknown Phone Unavailable Allergies Active Description Code Type Severity Reaction Onset Reported/Identified Relationship to Patient Clinical Status Yes olanzapine [id number] Drug Allergy Unknown N/A 08/03/2008 Yes codeine Drug Allergy 02/16/2011 Yes codeine Drug Allergy N/A N/A 02/16/2011 Yes Cefadroxil Drug Allergy N/A N/A 08/20/2013 Yes cefadroxil [id number] Drug Allergy Unknown N/A 05/13/2018 Yes codeine [id number] Drug Allergy Unknown N/A 05/13/2018 Yes cefadroxil [id number] Drug Allergy Mild MAKES HER DIZZY 05/15/2018 [...] PF PSYCHIC FACTORS MED COND 05/05/2008 JENNIFER PATIENT SERVICES MANAGER, CODY 296.30 MAJOR DEPRESSIVE AFFECTIVE DISORDER RECURRENT EPISODE UNSPECIFIED DEGREE 05/05/2008 JENNIFER PATIENT SERVICES MANAGER, CODY 300.21 AN PANIC DIS W AGORA 05/05/2008 JENNIFER PATIENT SERVICES MANAGER, CODY 307.47 SI DYSSOMNIA NOS 05/05/2008 JENNIFER PATIENT SERVICES MANAGER, CODY 316 PF PSYCHIC FACTORS MED COND 05/05/2008 JENNIFER PATIENT SERVICES MANAGER, CODY 296.30 MAJOR DEPRESSIVE AFFECTIVE DISORDER RECURRENT EPISODE UNSPECIFIED DEGREE 05/05/2008 JENNIFER PATIENT SERVICES MANAGER, CODY 300.21 AN PANIC DIS W AGORA 05/05/2008 JENNIFER PATIENT SERVICES MANAGER, CODY 307.47 SI DYSSOMNIA NOS 05/05/2008 JENNIFER PATIENT SERVICES MANAGER, CODY 316 PF PSYCHIC FACTORS MED COND 05/26/2008 296.32 MAJOR DEPRESSIVE AFFECTIVE DISORDER RECURRENT EPISODE MODERATE DEGREE 05/26/2008 300.00 AN ANXIETY UNSPEC 05/26/2008 296.32 MAJOR DEPRESSIVE AFFECTIVE DISORDER RECURRENT EPISODE MODERATE DEGREE 05/26/2008 300.00 AN ANXIETY UNSPEC 05/26/2008 SOLEDAD MAYER DO F 296.32 MAJOR DEPRESSIVE AFFECTIVE DISORDER RECURRENT EPISODE MODERATE DEGREE 05/26/2008 OSLEDAD MAYER DO F 300.00 AN ANXIETY UNSPEC [...] NOS 04/20/2011 Ot 414.01 CORONARY ATHEROSCLEROSIS OF [place] CORON 04/20/2011 Ot 414.02 CORON ATHEROSCLEROSIS AUTOLOG [...] NOS 09/10/2012 Ot 414.01 CORONARY ATHEROSCLEROSIS OF [place] CORON 09/10/2012 Ot 414.02 CORON ATHEROSCLEROSIS AUTOLOG [...] AN PANIC DIS W/O AGORA 09/19/2012 JENNIFER PATIENT SERVICES MANAGER, CODY 300.01 AN PANIC DIS W/O AGORA 09/19/2012 JENNIFER PATIENT SERVICES MANAGER, CODY 300.01 AN PANIC DIS W/O [...] K Ot 401.9 09/19/2015 NENO PA, ESA Ctoe Ot 414.00 09/19/2015 NENO PA, ESA Cote [...] MD Ot I25.10 ATHSCL HEART DISEASE OF [place] CORONARY 09/21/2015 SUZETTE COCHRAN MD Ot I25.82 [...] 09/21/2015 SUZETTE COCHRAN MD Ot Z79.899 OTHER INFRASTRUCTURE ARCHITECT (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 09/21/2015 SUZETTE COCHRAN MD Ot Z95.1 PRESENCE OF AORTOCORONARY BYPASS GRAFT 10/03/2015 SUZETTE COCHRAN MD Ot E03.9 10/03/2015 SUZETTE COCHRAN MD Ot E11.9 10/03/2015 SUZETTE COCHRAN MD Ot E78.5 10/03/2015 SUZETTE COCHRAN MD Ot I10 10/03/2015 SUZETTE COCHRAN MD Ot I25.10 10/03/2015 DIMAS SHERMAN, SUZETTE Hardy Ot I25.82 10/03/2015 DIMAS SHERMAN, USZETTE Hardy Ot I50.22 10/03/2015 DIMAS SHERMAN, SUZETTE [...] NEC/NOS 11/18/2015 Ot 414.01 CORONARY ATHEROSCLEROSIS OF [place] CORON 11/18/2015 Ot 440.20 ATHEROSCLEROSIS [place] ARTERIES EXTREMIT 11/18/2015 Ot 998.12 HEMATOMA COMPLIC [...] BETTS Ot 272.4 HYPERLIPIDEMIA NEC/NOS 11/18/2015 ESA EBTTS Ot 414.9 CHR ISCHEMIC HRT DIS NOS [...] MD, Ot I25.10 ATHSCL HEART DISEASE OF [place] CORONARY 11/25/2015 SUZETTE COCHRAN MD, Ot I25.82 [...] 11/25/2015 SUZETTE COCHRAN MD Ot Z79.899 OTHER INFRASTRUCTURE ARCHITECT (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 11/25/2015 SUZETTE COCHRAN MD Ot Z95.1 PRESENCE OF AORTOCORONARY BYPASS GRAFT 07/23/2016 Ot 272.4 HYPERLIPIDEMIA NEC/NOS 07/23/2016 Ot 414.01 CORONARY ATHEROSCLEROSIS OF [place] CORON 07/23/2016 Ot 440.20 ATHEROSCLEROSIS [place] ARTERIES EXTREMIT 07/23/2016 Ot 998.12 HEMATOMA COMPLIC [...] MD Ot I25.10 ATHSCL HEART DISEASE OF [place] CORONARY 01/18/2017 SUZETTE COCHRAN MD Ot 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 01/18/2017 SUZETTE COCHRAN MD Ot M79.7 FIBROMYALGIA 02/08/2017 SUZETTE COCHRAN MD Ot E78.2 MIXED HYPERLIPIDEMIA 02/08/2017 SUZETTE COCHRAN MD Ot I10 ESSENTIAL (PRIMARY) HYPERTENSION 02/08/2017 SUZETTE COCHRAN MD Ot I25.10 ATHSCL HEART DISEASE OF [place] CORONARY 02/08/2017 SUZETTE COCHRAN MD Ot 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 02/08/2017 SUZETTE COCHRAN MD Ot M79.7 FIBROMYALGIA 03/04/2017 SUZETTE COCHRAN MD Ot E78.2 MIXED HYPERLIPIDEMIA 03/04/2017 SUZETTE COCHRAN MD Ot I10 ESSENTIAL (PRIMARY) HYPERTENSION 03/04/2017 SUZETTE COCHRAN MD Ot I25.10 ATHSCL HEART DISEASE OF [place] CORONARY 03/04/2017 SUZETTE COCHRAN MD Ot I65.23 [...] MD Ot I25.10 ATHSCL HEART DISEASE OF [place] CORONARY 01/09/2018 SUZETTE COCHRAN MD Ot 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 01/09/2018 SUZETTE COCHRAN MD Ot M79.7 FIBROMYALGIA 01/15/2018 SUZETTE COCHRAN MD Ot E78.5 HYPERLIPIDEMIA, UNSPECIFIED 01/15/2018 SUZETTE COCHRAN MD 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 01/15/2018 SUZETTE COCHRAN MD Ot I11.0 HYPERTENSIVE HEART DISEASE WITH HEART FA 01/15/2018 SUZETTE COCHRAN MD Ot I25.10 ATHSCL HEART DISEASE OF [place] CORONARY 01/15/2018 SUZETTE COCHRAN MD Ot I50.9 HEART FAILURE, UNSPECIFIED 02/04/2018 SUZETTE COCHRAN MD Ot E78.5 HYPERLIPIDEMIA, UNSPECIFIED 02/04/2018 SUZETTE COCHRAN MD 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 02/04/2018 SUZETTE COCHRAN MD Ot I11.0 HYPERTENSIVE HEART DISEASE WITH HEART FA 02/04/2018 SUZETTE COCHRAN MD Ot I25.10 ATHSCL HEART DISEASE OF [place] CORONARY 02/04/2018 SUZETTE COCHRAN MD Ot I50.9 HEART FAILURE, UNSPECIFIED 02/17/2018 SUZETTE COCHRAN MD Ot E78.5 HYPERLIPIDEMIA, UNSPECIFIED 02/17/2018 SUZETTE COCHRAN MD 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 02/17/2018 SUZETTE COCHRAN MD Ot I11.0 HYPERTENSIVE HEART DISEASE WITH HEART FA 02/17/2018 SUZETTE COCHRAN MD Ot I25.10 ATHSCL HEART DISEASE OF [place] CORONARY 02/17/2018 SUZETTE COCHRAN MD Ot I50.9 HEART FAILURE, UNSPECIFIED 05/13/2018 ROSITA CRUZ CUT PRESS OPERATOR Ot V49.81 ASYMPT POSTMENOPAUSAL STATUS (AGE-RELATE 05/13/2018 ROSITA CRUZ CUT PRESS OPERATOR Ot V76.12 OTH SCREEN MAMMO-MALIGN NEOPLASM [...] MD, Ot I25.10 ATHSCL HEART DISEASE OF [place] CORONARY 05/13/2018 SUZETTE COCHRAN MD Ot 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 05/13/2018 SUZETTE COCHRAN MD Ot M79.7 FIBROMYALGIA 05/13/2018 SUZETTE COCHRAN MD, Ot E78.5 HYPERLIPIDEMIA, UNSPECIFIED 05/13/2018 SUZETTE COCHRAN MD, 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 05/13/2018 SUZETTE COCHRAN MD, Ot I11.0 HYPERTENSIVE HEART DISEASE WITH HEART FA 05/13/2018 SUZETTE COCHRAN MD, Ot I25.10 ATHSCL HEART DISEASE OF [place] CORONARY 05/13/2018 SUZETTE COCHRAN MD Ot I50.9 [...] MD, Ot I25.10 ATHSCL HEART DISEASE OF [place] CORONARY 05/13/2018 SUZETTE COCHRAN MD Ot 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 05/13/2018 SUZETTE COCHRAN MD Ot M79.7 FIBROMYALGIA 05/13/2018 SUZETTE COCHRAN MD, Ot E78.5 HYPERLIPIDEMIA, UNSPECIFIED 05/13/2018 SUZETTE COCHRAN MD 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 05/13/2018 SUZETTE COCHRAN MD Ot I11.0 HYPERTENSIVE HEART DISEASE WITH HEART FA 05/13/2018 SUZETTE COCHRAN MD, Ot I25.10 ATHSCL HEART DISEASE OF [place] CORONARY 05/13/2018 SUZETTE COCHRAN MD Ot I50.9 [...] MD Ot I25.10 ATHSCL HEART DISEASE OF [place] CORONARY 05/27/2018 MARICHUY WILLIS MD Ot I50.9 [...] MD Ot I25.10 ATHSCL HEART DISEASE OF [place] CORONARY 05/30/2018 MARICHUY WILLIS MD Ot I50.9 [...] Ot V49.81 ASYMPT POSTMENOPAUSAL STATUS (AGE-RELATE 05/31/2018 ROSIAT CRUZ CASSI Ot V76.12 OTH SCREEN MAMMO-MALIGN [...] MD Ot I25.10 ATHSCL HEART DISEASE OF [place] CORONARY 05/31/2018 SUZETTE COCHRAN MD Ot 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 05/31/2018 SUZETTE COCHRAN MD Ot M79.7 FIBROMYALGIA 05/31/2018 SUZETTE COCHRAN MD, Ot E78.5 HYPERLIPIDEMIA, UNSPECIFIED 05/31/2018 SUZETTE COCHRAN MD 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 05/31/2018 SUZETTE COCHRAN MD Ot I11.0 HYPERTENSIVE HEART DISEASE WITH HEART FA 05/31/2018 SUZETTE COCHRAN MD Ot I25.10 ATHSCL HEART DISEASE OF [place] CORONARY 05/31/2018 DIMAS SHERMAN, SUZETTE Hardy Ot [...] APRN Ot I25.10 ATHSCL HEART DISEASE OF [place] CORONARY 06/06/2018 ANKITA STOVALL APRN Ot T81.31XA DISRUPTION OF EXTERNAL OPERATION (SURGIC 06/06/2018 ANKITA STOVALL APRN Ot T81.89XA OTH COMPLICATIONS OF PROCEDURES, NEC, IN 06/06/2018 ANKITA STOVALL APRN Ot Z79.82 FDC (CURRENT) USE OF ASPIRIN 06/06/2018 ANKITA STOVALL [...] APRN Ot I25.10 ATHSCL HEART DISEASE OF [place] CORONARY 06/12/2018 ANKITA STOVALL APRN Ot T81.31XA DISRUPTION OF EXTERNAL OPERATION (SURGIC 06/12/2018 ANKITA STOVALL APRN Ot T81.89XA OTH COMPLICATIONS OF PROCEDURES, NEC, IN 06/12/2018 ANKITA STOVALL APRN Ot Z79.82 INFRASTRUCTURE ARCHITECT (CURRENT) USE OF ASPIRIN 06/12/2018 ANKITA STOVALL [...] BOTH CERVIX AND UTER 06/12/2018 ANKITA STOVALL PATIENT SERVICES MANAGER Ot Z95.1 PRESENCE OF AORTOCORONARY BYPASS GRAFT 06/12/2018 ANKITA STOVALL PATIENT SERVICES MANAGER Ot Z98.890 OTHER SPECIFIED POSTPROCEDURAL STATES 07/09/2018 WILL MALONE PATIENT SERVICES MANAGER Ot G47.30 SLEEP APNEA, UNSPECIFIED 07/09/2018 KIRAWILL CARTY PATIENT SERVICES MANAGER Ot G47.30 SLEEP APNEA, UNSPECIFIED 07/20/2018 KIRA, WILL E PATIENT SERVICES MANAGER Ot G47.10 HYPERSOMNIA, UNSPECIFIED 07/20/2018 KIRA WILL E PATIENT SERVICES MANAGER Ot G47.33 OBSTRUCTIVE SLEEP APNEA (ADULT) (PEDIATR 07/20/2018 WILL MALONE E PATIENT SERVICES MANAGER Ot G47.61 PERIODIC LIMB MOVEMENT DISORDER 07/20/2018 PILLO MALONEINE Devorah PATIENT SERVICES MANAGER Ot I48.91 UNSPECIFIED ATRIAL FIBRILLATION 07/24/2018 WILL MALONE PATIENT SERVICES MANAGER Ot G47.10 HYPERSOMNIA, UNSPECIFIED 07/24/2018 KIRAWILL CARTY PATIENT SERVICES MANAGER Ot G47.33 OBSTRUCTIVE SLEEP APNEA (ADULT) (PEDIATR 07/24/2018 KIRAPILLO CARTYINE E PATIENT SERVICES MANAGER Ot G47.61 PERIODIC LIMB MOVEMENT DISORDER 07/24/2018 WILL MALONE PATIENT SERVICES MANAGER Ot I48.91 UNSPECIFIED ATRIAL FIBRILLATION 08/29/2018 WILL MALONE PATIENT SERVICES MANAGER Ot G47.30 SLEEP APNEA, UNSPECIFIED 08/29/2018 WILL MALONE PATIENT SERVICES MANAGER Ot G47.30 SLEEP APNEA, UNSPECIFIED 09/10/2018 SUZETTE COCHRAN MD Ot E78.5 HYPERLIPIDEMIA, UNSPECIFIED 09/10/2018 SUZETTE COCHRAN MD Ot F32.9 MAJOR DEPRESSIVE DISORDER, SINGLE EPISOD 09/10/2018 SUZETTE COCHRAN MD Ot I13.0 HYP HRT CHR KDNY DIS W HRT FAIL AND ST 09/10/2018 SUZETTE COCHRAN MD Ot I25.10 ATHSCL HEART DISEASE OF [place] CORONARY 09/10/2018 SUZETTE COCHRAN MD Ot I34.0 NONRHEUMATIC MITRAL (VALVE) INSUFFICIENC 09/10/2018 SUZETTE COCHRAN MD Ot I50.22 CHRONIC SYSTOLIC (CONGESTIVE) HEART FAIL 09/10/2018 SUZETTE COCHRAN MD Ot 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 09/10/2018 SUZETTE COCHRAN MD Ot Z79.899 OTHER FDC (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 09/10/2018 SUZETTE COCHRAN MD [...] DIS W HRT FAIL AND ST 09/11/2018 SUZTETE COCHRAN MD Ot I25.10 ATHSCL HEART DISEASE OF [place] CORONARY 09/11/2018 SUZETTE COCHRAN MD Ot I34.0 NONRHEUMATIC MITRAL (VALVE) INSUFFICIENC 09/11/2018 SUZETTE COCHRAN MD Ot I50.22 CHRONIC SYSTOLIC (CONGESTIVE) HEART FAIL 09/11/2018 SUZETTE COCHRAN MD Ot 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 09/11/2018 SUZETTE COCHRAN MD Ot Z79.899 OTHER FDC (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 09/11/2018 SUZETTE COCHRAN MD [...] MD Ot I25.10 ATHSCL HEART DISEASE OF [place] CORONARY 09/12/2018 SUZETTE COCHRAN MD Ot I34.0 NONRHEUMATIC MITRAL (VALVE) INSUFFICIENC 09/12/2018 SUZETTE COCHRAN MD Ot I50.22 CHRONIC SYSTOLIC (CONGESTIVE) HEART FAIL 09/12/2018 SUZETTE COCHRAN MD Ot 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 09/12/2018 SUZETTE COCHRAN MD Ot Z79.899 OTHER FDC (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 09/12/2018 SUZETTE COCHRAN MD, [...] MD Ot I25.10 ATHSCL HEART DISEASE OF [place] CORONARY 09/17/2018 SUZETTE COCHRAN MD Ot I50.9 HEART FAILURE, UNSPECIFIED 09/27/2018 WILL MALONE APRN Ot G47.30 SLEEP APNEA, UNSPECIFIED 09/27/2018 WILL MALONE PATIENT SERVICES MANAGER Ot G47.30 SLEEP APNEA, UNSPECIFIED 09/27/2018 WLIL MALONE PATIENT SERVICES MANAGER Ot G47.30 SLEEP APNEA, UNSPECIFIED 09/28/2018 WILL MALONE PATIENT SERVICES MANAGER Ot G47.30 SLEEP APNEA, UNSPECIFIED 09/28/2018 WILL MALONE PATIENT SERVICES MANAGER Ot I50.9 HEART FAILURE, UNSPECIFIED 09/28/2018 WILL MALONE PATIENT SERVICES MANAGER Ot M79.7 FIBROMYALGIA 09/30/2018 WILL MALONE PATIENT SERVICES MANAGER Ot G47.30 SLEEP APNEA, UNSPECIFIED 09/30/2018 WILL MALONE PATIENT SERVICES MANAGER Ot I50.9 HEART FAILURE, UNSPECIFIED 09/30/2018 WILL MALONE PATIENT SERVICES MANAGER Ot M79.7 FIBROMYALGIA 01/19/2019 ROSITA CRUZ Ot [...] MD, Ot I25.10 ATHSCL HEART DISEASE OF [place] CORONARY 01/19/2019 SUZETTE COCHRAN MD Ot 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 01/19/2019 SUZETTE COCHRAN MD Ot M79.7 FIBROMYALGIA 01/19/2019 SUZETTE COCHRAN MD Ot E78.5 HYPERLIPIDEMIA, UNSPECIFIED 01/19/2019 SUZETTE COCHRAN MD 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 01/19/2019 SUZETTE COCHRAN MD Ot I11.0 HYPERTENSIVE HEART DISEASE WITH HEART FA 01/19/2019 SUZETTE COCHRAN MD Ot I25.10 ATHSCL HEART DISEASE OF [place] CORONARY 01/19/2019 SUZETTE COCHRAN MD Ot I50.9 HEART FAILURE, UNSPECIFIED 01/19/2019 SUZETTE COCHRAN MD Ot E78.5 HYPERLIPIDEMIA, UNSPECIFIED 01/19/2019 SUZETTE COCHRAN MD Ot I11.0 HYPERTENSIVE HEART DISEASE WITH HEART FA 01/19/2019 SUZETTE COCHRAN MD Ot I25.10 ATHSCL HEART DISEASE OF [place] CORONARY 01/19/2019 SUZETTE COCHRAN MD J Ot [...] J Ot I25.10 ATHSCL HEART DISEASE OF [place] CORONARY 01/27/2019 MG DO, ETHEL J Ot [...] J Ot I25.10 ATHSCL HEART DISEASE OF [place] CORONARY 02/17/2019 MG DO, ETHEL J Ot N18.3 CHRONIC KIDNEY DISEASE, STAGE 3 (MODERAT 02/17/2019 MG DOETHEL Ot Z12.31 ENCNTR SCREEN MAMMOGRAM FOR MALIGNANT NE 02/18/2019 ROSITA CRUZ CUT PRESS OPERATOR Ot V49.81 ASYMPT POSTMENOPAUSAL STATUS (AGE-RELATE 02/18/2019 ROSITA CRUZ CUT PRESS OPERATOR Ot V76.12 OTH SCREEN MAMMO-MALIGN NEOPLASM [...] MD Ot I25.10 ATHSCL HEART DISEASE OF [place] CORONARY 02/18/2019 SUZETTE COCHRAN MD Ot 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 02/18/2019 SUZETTE COCHRAN MD Ot M79.7 FIBROMYALGIA 02/18/2019 USZETTE COCHRAN MD Ot E78.5 HYPERLIPIDEMIA, UNSPECIFIED 02/18/2019 SUZETTE COCHRAN MD 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 02/18/2019 SUZETTE COCHRAN MD Ot I11.0 HYPERTENSIVE HEART DISEASE WITH HEART FA 02/18/2019 SUZETTE COCHRAN MD Ot I25.10 ATHSCL HEART DISEASE OF [place] CORONARY 02/18/2019 SUZETTE COCHRAN MD Ot I50.9 HEART FAILURE, UNSPECIFIED 02/18/2019 SUZETTE COCHRAN MD Ot E78.5 HYPERLIPIDEMIA, UNSPECIFIED 02/18/2019 SUZETTE COCHRAN MD Ot I11.0 HYPERTENSIVE HEART DISEASE WITH HEART FA 02/18/2019 SUZETTE COCHRAN MD Ot I25.10 ATHSCL HEART DISEASE OF [place] CORONARY 02/18/2019 SUZETTE COCHRAN MD Ot I50.9 HEART FAILURE, UNSPECIFIED 02/18/2019 ETHEL MG DO Ot F33.8 OTHER RECURRENT DEPRESSIVE DISORDERS 02/18/2019 ETHEL MG DO Ot G47.33 OBSTRUCTIVE SLEEP APNEA (ADULT) (PEDIATR 02/18/2019 ETHEL MG DO Ot I25.10 ATHSCL HEART DISEASE OF [place] CORONARY 02/18/2019 ETHEL MG DO Ot N18.3 CHRONIC KIDNEY DISEASE, STAGE 3 (MODERAT 02/18/2019 ETHEL MG DO Ot Z12.31 ENCNTR SCREEN MAMMOGRAM FOR MALIGNANT NE 02/18/2019 NISHI SHERMAN, CALDERON Schilling Ot N18.3 CHRONIC KIDNEY DISEASE, STAGE 3 (MODERAT 02/18/2019 ANKITA STOVALL APRN Ot E03.9 HYPOTHYROIDISM, UNSPECIFIED 02/18/2019 ANKITA STOVALL APRN Ot E78.00 PURE HYPERCHOLESTEROLEMIA, UNSPECIFIED 02/18/2019 ANKITA STOVALL APRN Ot F32.9 MAJOR DEPRESSIVE DISORDER, SINGLE EPISOD 02/18/2019 ANKITA STOVALL APRN Ot F41.9 ANXIETY DISORDER, UNSPECIFIED 02/18/2019 ANKITA STOVALL APRN Ot G47.30 SLEEP APNEA, UNSPECIFIED 02/18/2019 ANKITA STOVALL APRN Ot I10 ESSENTIAL (PRIMARY) HYPERTENSION 02/18/2019 ANKITA STOVALL APRN Ot I25.10 ATHSCL HEART DISEASE OF [place] CORONARY 02/18/2019 ANKITA STOVALL APRN Ot K58.9 IRRITABLE BOWEL SYNDROME WITHOUT DIARRHE 02/18/2019 ANKITA STOVALL APRN Ot M79.7 FIBROMYALGIA 02/18/2019 ANKITA STOVALL APRN Ot S61.012A LACERATION W/O FB OF LEFT THUMB W/O SARABJIT 02/18/2019 ANKITA STOVALL APRN Ot W26.0XXA CONTACT WITH KNIFE, INITIAL ENCOUNTER 02/18/2019 ANKITA STOVALL APRN Ot Z79.82 INFRASTRUCTURE ARCHITECT (CURRENT) USE OF ASPIRIN 02/18/2019 ANKITA STOVALL APRN Ot Z82.49 FAMILY HX OF ISCHEM HEART DIS AND OTH DI 02/18/2019 ANKITA STOVALL APRN Ot Z87.19 PERSONAL HISTORY OF OTHER DISEASES OF TH 02/18/2019 ANKITA STOVALL APRN Ot Z88.1 ALLERGY STATUS TO OTHER ANTIBIOTIC AGENT 02/18/2019 ANKITA STOVALL APRN Ot Z88.5 ALLERGY STATUS TO NARCOTIC AGENT STATUS 02/18/2019 ANKITA STOVALL APRN Ot Z88.8 ALLERGY STATUS TO OT DRUG/MEDS/BIOL SUB 02/18/2019 ANKITA STOVALL APRN Ot Z90.710 ACQUIRED ABSENCE OF BOTH CERVIX AND UTER 02/18/2019 ANKITA STOVALL APRN Ot Z95.1 PRESENCE OF AORTOCORONARY BYPASS GRAFT 02/18/2019 ANKITA STOVALL APRN Ot Z99.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 02/21/2019 ANTHONYROSITA CASSI Ot V49.81 ASYMPT POSTMENOPAUSAL STATUS (AGE-RELATE 02/21/2019 ANTHONYROSITA CASSI Ot V76.12 OTH SCREEN MAMMO-MALIGN NEOPLASM OF [place] 02/21/2019 ESA BETTS Ot 401.9 HYPERTENSION NOS 02/21/2019 ESA BETTS Ot 414.00 CORON ATHEROSCLER NOS TYPE VESSEL, NATIV 02/21/2019 ESA BETTS Ot 426.4 RT BUNDLE BRANCH BLOCK 02/21/2019 ESA BETTS Ot 428.0 CONGESTIVE HEART FAILURE NOS 02/21/2019 ESA BETTS Ot 272.4 HYPERLIPIDEMIA NEC/NOS 02/21/2019 ESA BETTS Ot 414.9 CHR ISCHEMIC HRT DIS NOS 02/21/2019 ESA BETTS Ot 428.0 CONGESTIVE HEART FAILURE NOS 02/21/2019 ESA BETTS Ot 433.10 CAROTID ARTERY OCCLUSION W O CEREBRAL IN 02/21/2019 Ot N18.3 CHRONIC KIDNEY DISEASE, STAGE 3 (MODERAT 02/21/2019 SUZETTE COCHRAN MD Ot E78.2 MIXED HYPERLIPIDEMIA 02/21/2019 SUZETTE COCHRAN MD Ot I10 ESSENTIAL (PRIMARY) HYPERTENSION 02/21/2019 SUZETTE COCHRAN MD Ot I25.10 ATHSCL HEART DISEASE OF [place] CORONARY 02/21/2019 SUZETTE COCHRAN MD Ot 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 02/21/2019 SUZETTE COCHRAN MD Ot M79.7 FIBROMYALGIA 02/21/2019 SUZETTE COCHRAN MD, Ot E78.5 HYPERLIPIDEMIA, UNSPECIFIED 02/21/2019 SUZETTE COCHRAN MD 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 02/21/2019 SUZETTE COCHRAN MD Ot I11.0 HYPERTENSIVE HEART DISEASE WITH HEART FA 02/21/2019 SUZETTE COCHRAN MD Ot I25.10 ATHSCL HEART DISEASE OF [place] CORONARY 02/21/2019 SUZETTE COCHRAN MD, Ot I50.9 HEART FAILURE, UNSPECIFIED 02/21/2019 SUZETTE COCHRAN MD Ot E78.5 HYPERLIPIDEMIA, UNSPECIFIED 02/21/2019 SUZETTE COCHRAN MD Ot I11.0 HYPERTENSIVE HEART DISEASE WITH HEART FA 02/21/2019 SUZETTE COCHRAN MD Ot I25.10 ATHSCL HEART DISEASE OF [place] CORONARY 02/21/2019 SUZETTE COCHRAN MD Ot I50.9 HEART FAILURE, UNSPECIFIED 02/21/2019 ETHEL MG DO Ot F33.8 OTHER RECURRENT DEPRESSIVE DISORDERS 02/21/2019 ETHEL MG DO, Ot G47.33 OBSTRUCTIVE SLEEP APNEA (ADULT) (PEDIATR 02/21/2019 ETHEL MG DO, Ot I25.10 ATHSCL HEART DISEASE OF [place] CORONARY 02/21/2019 ETHEL MG DO Ot N18.3 CHRONIC KIDNEY DISEASE, STAGE 3 (MODERAT 02/21/2019 ETHEL MG DO Ot Z12.31 ENCNTR SCREEN MAMMOGRAM FOR MALIGNANT NE 02/21/2019 NISHI SHERMAN, CALDERON Schilling Ot N18.3 CHRONIC KIDNEY DISEASE, STAGE 3 (MODERAT 02/23/2019 ANKITA STOVALL APRN Ot E03.9 HYPOTHYROIDISM, UNSPECIFIED 02/23/2019 ANKITA STOVALL APRN Ot E78.00 PURE HYPERCHOLESTEROLEMIA, UNSPECIFIED 02/23/2019 ANKITA STOVALL APRN Ot F32.9 MAJOR DEPRESSIVE DISORDER, SINGLE EPISOD 02/23/2019 ANKITA STOVALL APRN Ot F41.9 ANXIETY DISORDER, UNSPECIFIED 02/23/2019 ANKITA STOVALL APRN Ot G47.30 SLEEP APNEA, UNSPECIFIED 02/23/2019 ANKITA STOVALL APRN Ot I10 ESSENTIAL (PRIMARY) HYPERTENSION 02/23/2019 ANKITA STOVALL APRN Ot I25.10 ATHSCL HEART DISEASE OF [place] CORONARY 02/23/2019 ANKITA STOVALL APRN Ot K58.9 IRRITABLE BOWEL SYNDROME WITHOUT DIARRHE 02/23/2019 ANKITA STOVALL APRN Ot M79.7 FIBROMYALGIA 02/23/2019 ANKITA STOVALL APRN Ot S61.012A LACERATION W/O FB OF LEFT THUMB W/O SARABJIT 02/23/2019 ANKITA STOVALL APRN Ot W26.0XXA CONTACT WITH KNIFE, INITIAL ENCOUNTER 02/23/2019 ANKITA STOVALL APRN Ot Z79.82 INFRASTRUCTURE ARCHITECT (CURRENT) USE OF ASPIRIN 02/23/2019 ANKITA STOVALL APRN Ot Z82.49 FAMILY HX OF ISCHEM HEART DIS AND OTH DI 02/23/2019 ANKITA STOVALL APRN Ot Z87.19 PERSONAL HISTORY OF OTHER DISEASES OF TH 02/23/2019 ANKITA STOVALL APRN Ot Z88.1 ALLERGY STATUS TO OTHER ANTIBIOTIC AGENT 02/23/2019 ANKITA STOVALL APRN Ot Z88.5 ALLERGY STATUS TO NARCOTIC AGENT STATUS 02/23/2019 ANKITA STOVALL APRN Ot Z88.8 ALLERGY STATUS TO OT DRUG/MEDS/BIOL SUB 02/23/2019 ANKITA STOVALL APRN Ot Z90.710 ACQUIRED ABSENCE OF BOTH CERVIX AND UTER 02/23/2019 ANKITA STOVALL APRN Ot Z95.1 PRESENCE OF AORTOCORONARY BYPASS GRAFT 02/23/2019 ANKITA STOVALL APRN Ot Z99.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 02/23/2019 ANKITA STOVALL APRN Ot E03.9 HYPOTHYROIDISM, UNSPECIFIED 02/23/2019 ANKITA STOVALL APRN Ot E78.00 PURE HYPERCHOLESTEROLEMIA, UNSPECIFIED 02/23/2019 ANKITA STOVALL APRN Ot F32.9 MAJOR DEPRESSIVE DISORDER, SINGLE EPISOD 02/23/2019 ANKITA STOVALL APRN Ot F41.9 ANXIETY DISORDER, UNSPECIFIED 02/23/2019 ANKITA STOVALL APRN Ot G47.30 SLEEP APNEA, UNSPECIFIED 02/23/2019 ANKITA STOVALL APRN Ot I10 ESSENTIAL (PRIMARY) HYPERTENSION 02/23/2019 ANKITA STOVALL APRN Ot I25.10 ATHSCL HEART DISEASE OF [place] CORONARY 02/23/2019 ANKITA STOVALL APRN Ot K58.9 IRRITABLE BOWEL SYNDROME WITHOUT DIARRHE 02/23/2019 ANKITA STOVALL APRN Ot M79.7 FIBROMYALGIA 02/23/2019 ANKITA STOVALL APRN Ot S61.012A LACERATION W/O FB OF LEFT THUMB W/O SARABJIT 02/23/2019 ANKITA STOVALL APRN Ot W26.0XXA CONTACT WITH KNIFE, INITIAL ENCOUNTER 02/23/2019 ANKITA STOVALL APRN Ot Z79.82 INFRASTRUCTURE ARCHITECT (CURRENT) USE OF ASPIRIN 02/23/2019 ANKITA STOVALL APRN Ot Z82.49 FAMILY HX OF ISCHEM HEART DIS AND OTH DI 02/23/2019 ANKITA STOVALL APRN Ot Z87.19 PERSONAL HISTORY OF OTHER DISEASES OF TH 02/23/2019 ANKITA STOVALL APRN Ot Z88.1 ALLERGY STATUS TO OTHER ANTIBIOTIC AGENT 02/23/2019 ANKITA STOVALL APRN Ot Z88.5 ALLERGY STATUS TO NARCOTIC AGENT STATUS 02/23/2019 ANKITA STOVALL APRN Ot Z88.8 ALLERGY STATUS TO OTH DRUG/MEDS/BIOL SUB 02/23/2019 ANKITA STOVALL APRN Ot Z90.710 ACQUIRED ABSENCE OF BOTH CERVIX AND UTER 02/23/2019 ANKITA STOVALL APRN Ot Z95.1 PRESENCE OF AORTOCORONARY BYPASS GRAFT 02/23/2019 ANKITA STOVALL APRN Ot Z99.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 02/24/2019 ANKITA STOVALL APRN Ot E03.9 HYPOTHYROIDISM, UNSPECIFIED 02/24/2019 ANKITA STOVALL APRN Ot E78.00 PURE HYPERCHOLESTEROLEMIA, UNSPECIFIED 02/24/2019 ANKITA STOVALL APRN Ot F32.9 MAJOR DEPRESSIVE DISORDER, SINGLE EPISOD 02/24/2019 ANKITA STOVALL APRN Ot F41.9 ANXIETY DISORDER, UNSPECIFIED 02/24/2019 ANKITA STOVALL APRN Ot G47.30 SLEEP APNEA, UNSPECIFIED 02/24/2019 ANKITA STOVALL APRN Ot I10 ESSENTIAL (PRIMARY) HYPERTENSION 02/24/2019 ANKITA STOVALL APRN Ot I25.10 ATHSCL HEART DISEASE OF [place] CORONARY 02/24/2019 ANKITA STOVALL APRN Ot K58.9 IRRITABLE BOWEL SYNDROME WITHOUT DIARRHE 02/24/2019 ANKITA STOVALL APRN Ot M25.561 PAIN IN RIGHT KNEE 02/24/2019 ANKITA STOVALL APRN Ot M79.7 FIBROMYALGIA 02/24/2019 ANKITA STOVALL APRN Ot S80.01XA CONTUSION OF RIGHT KNEE, INITIAL ENCOUNT 02/24/2019 ANKITA STOVALL APRN Ot W01.0XXA FALL SAME LEV FROM SLIP/TRIP W/O STRIKE 02/24/2019 ANKITA STOVALL APRN Ot Y92.[address] IN [facility] NON-INSTITUT (PRIVATE 02/24/2019 ANKITA STOVALL APRN Ot Z79.82 INFRASTRUCTURE ARCHITECT (CURRENT) USE OF ASPIRIN 02/24/2019 ANKITA STOVALL APRN Ot Z82.49 FAMILY HX OF ISCHE[place] HEART DIS AND OTH DI 02/24/2019 ANKITA STOVALL APRN Ot Z87.19 PERSONAL HISTORY OF OTHER DISEASES OF TH 02/24/2019 ANKITA STOVALL APRN Ot Z87.440 PERSONAL HISTORY OF URINARY (TRACT) INFE 02/24/2019 ANKITA STOVALL APRN Ot Z88.1 ALLERGY STATUS TO OTHER ANTIBIOTIC AGENT 02/24/2019 ANKITA STOVALL APRN Ot Z88.5 ALLERGY STATUS TO NARCOTIC AGENT STATUS 02/24/2019 ANKITA STOVALL APRN Ot Z88.8 ALLERGY STATUS TO OTH DRUG/MEDS/BIOL SUB 02/24/2019 ANKITA STOVALL APRN Ot Z90.710 ACQUIRED ABSENCE OF BOTH CERVIX AND UTER 02/24/2019 ANKITA STOVALL APRN Ot Z95.1 PRESENCE OF AORTOCORONARY BYPASS GRAFT 02/24/2019 ANKITA STOVALL APRN Ot Z99.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 02/25/2019 ANKITA STOVALL APRN Ot E03.9 HYPOTHYROIDISM, UNSPECIFIED 02/25/2019 ANKITA STOVALL APRN Ot E78.00 PURE HYPERCHOLESTEROLEMIA, UNSPECIFIED 02/25/2019 ANKITA STOVALL APRN Ot F32.9 MAJOR DEPRESSIVE DISORDER, SINGLE EPISOD 02/25/2019 ANKITA STOVALL APRN Ot F41.9 ANXIETY DISORDER, UNSPECIFIED 02/25/2019 ANKITA STOVALL APRN Ot G47.30 SLEEP APNEA, UNSPECIFIED 02/25/2019 ANKITA STOVALL APRN Ot I10 ESSENTIAL (PRIMARY) HYPERTENSION 02/25/2019 ANKITA STOVALL APRN Ot I25.10 ATHSCL HEART DISEASE OF [place] CORONARY 02/25/2019 ANKITA STOVALL APRN Ot K58.9 IRRITABLE BOWEL SYNDROME WITHOUT DIARRHE 02/25/2019 ANKITA STOVALL APRN Ot M79.7 FIBROMYALGIA 02/25/2019 ANKITA STOVALL APRN Ot S61.012A LACERATION W/O FB OF LEFT THUMB W/O SARABJIT 02/25/2019 ANKITA STOVALL APRN Ot W26.0XXA CONTACT WITH KNIFE, INITIAL ENCOUNTER 02/25/2019 ANKITA STOVALL APRN Ot Z79.82 FDC (CURRENT) USE OF ASPIRIN 02/25/2019 ANKITA STOVALL APRN Ot Z82.49 FAMILY HX OF ISCHEM HEART DIS AND OTH DI 02/25/2019 ANKITA STOVALL APRN Ot Z87.19 PERSONAL HISTORY OF OTHER DISEASES OF TH 02/25/2019 ANKITA STOVALL APRN Ot Z88.1 ALLERGY STATUS TO OTHER ANTIBIOTIC AGENT 02/25/2019 ANKITA STOVALL APRN Ot Z88.5 ALLERGY STATUS TO NARCOTIC AGENT STATUS 02/25/2019 ANKITA STOVALL APRN Ot Z88.8 ALLERGY STATUS TO OT DRUG/MEDS/BIOL SUB 02/25/2019 ANKITA STOVALL APRN Ot Z90.710 ACQUIRED ABSENCE OF BOTH CERVIX AND UTER 02/25/2019 ANKITA STOVALL APRN Ot Z95.1 PRESENCE OF AORTOCORONARY BYPASS GRAFT 02/25/2019 ANKITA STOVALL APRN Ot Z99.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 02/25/2019 ANKITA STOVALL APRN Ot E03.9 HYPOTHYROIDISM, UNSPECIFIED 02/25/2019 ANKITA STOVALL APRN Ot E78.00 PURE HYPERCHOLESTEROLEMIA, UNSPECIFIED 02/25/2019 ANKITA STOVALL APRN Ot F32.9 MAJOR DEPRESSIVE DISORDER, SINGLE EPISOD 02/25/2019 ANKITA STOVALL APRN Ot F41.9 ANXIETY DISORDER, UNSPECIFIED 02/25/2019 ANKITA STOVALL APRN Ot G47.30 SLEEP APNEA, UNSPECIFIED 02/25/2019 ANKITA STOVALL APRN Ot I10 ESSENTIAL (PRIMARY) HYPERTENSION 02/25/2019 ANKITA STOVALL APRN Ot I25.10 ATHSCL HEART DISEASE OF [place] CORONARY 02/25/2019 ANKITA STOVALL APRN Ot K58.9 IRRITABLE BOWEL SYNDROME WITHOUT DIARRHE 02/25/2019 ANKITA STOVALL APRN Ot M25.561 PAIN IN RIGHT KNEE 02/25/2019 ANKITA STOVALL APRN Ot M79.7 FIBROMYALGIA 02/25/2019 ANKITA STOVALL APRN Ot S80.01XA CONTUSION OF RIGHT KNEE, INITIAL ENCOUNT 02/25/2019 ANKITA STOVALL APRN Ot W01.0XXA FALL SAME LEV FROM SLIP/TRIP W/O STRIKE 02/25/2019 ANKITA STOVALL APRN Ot Y92.[address] [facility] PL[address] IN [facility] (PRIVATE 02/25/2019 ANKITA STOVALL APRN Ot Z79.82 FDC (CURRENT) USE OF ASPIRIN 02/25/2019 ANKITA STOVALL APRN Ot Z82.49 FAMILY HX OF ISCHEM HEART DIS AND OTH DI 02/25/2019 ANKITA STOVALL APRN Ot Z87.19 PERSONAL HISTORY OF OTHER DISEASES OF TH 02/25/2019 ANKITA STOVALL APRN Ot Z87.440 PERSONAL HISTORY OF URINARY (TRACT) INFE 02/25/2019 ANKITA STOVALL APRN Ot Z88.1 ALLERGY STATUS TO OTHER ANTIBIOTIC AGENT 02/25/2019 ANKITA STOVALL APRN Ot Z88.5 ALLERGY STATUS TO NARCOTIC AGENT STATUS 02/25/2019 ANKITA STOVALL APRN Ot Z88.8 ALLERGY STATUS TO OT DRUG/MEDS/BIOL SUB 02/25/2019 ANKITA STOVALL APRN Ot Z90.710 ACQUIRED ABSENCE OF BOTH CERVIX AND UTER 02/25/2019 ANKITA STOVALL APRN Ot Z95.1 PRESENCE OF AORTOCORONARY BYPASS GRAFT 02/25/2019 ANKITA STOVALL APRN Ot Z99.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 02/25/2019 ROSITA CRUZ CUT PRESS OPERATOR Ot V49.81 ASYMPT POSTMENOPAUSAL STATUS (AGE-RELATE 02/25/2019 ROSITA CRUZ CUT PRESS OPERATOR Ot V76.12 OTH SCREEN MAMMO-MALIGN NEOPLASM OF [place] 02/25/2019 ESA BETTS Ot 401.9 HYPERTENSION NOS 02/25/2019 ESA BETTS Ot 414.00 CORON ATHEROSCLER NOS TYPE VESSEL, NATIV 02/25/2019 ESA BETTS Ot 426.4 RT BUNDLE BRANCH BLOCK 02/25/2019 ESA BETTS Ot 428.0 CONGESTIVE HEART FAILURE NOS 02/25/2019 ESA BETTS Ot 272.4 HYPERLIPIDEMIA NEC/NOS 02/25/2019 ESA BETTS Ot 414.9 CHR ISCHEMIC HRT DIS NOS 02/25/2019 ESA BETTS Ot 428.0 CONGESTIVE HEART FAILURE NOS 02/25/2019 ESA BETTS Ot 433.10 CAROTID ARTERY OCCLUSION W O CEREBRAL IN 02/25/2019 Ot N18.3 CHRONIC KIDNEY DISEASE, STAGE 3 (MODERAT 02/25/2019 SUZETTE COCHRAN MD Ot E78.2 MIXED HYPERLIPIDEMIA 02/25/2019 SUZETTE COCHRAN MD Ot I10 ESSENTIAL (PRIMARY) HYPERTENSION 02/25/2019 SUZETTE COCHRAN MD, Ot I25.10 ATHSCL HEART DISEASE OF [place] CORONARY 02/25/2019 SUZETTE COCHRAN MD Ot 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 02/25/2019 SUZETTE COCHRAN MD Ot M79.7 FIBROMYALGIA 02/25/2019 SUZETTE COCHRAN MD Ot E78.5 HYPERLIPIDEMIA, UNSPECIFIED 02/25/2019 SUZETTE COCHRAN MD 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 02/25/2019 SUZETTE COCHRAN MD Ot I11.0 HYPERTENSIVE HEART DISEASE WITH HEART FA 02/25/2019 SUZETTE COCHRAN MD Ot I25.10 ATHSCL HEART DISEASE OF [place] CORONARY 02/25/2019 SUZETTE COCHRAN MD Ot I50.9 HEART FAILURE, UNSPECIFIED 02/25/2019 SUZETTE COCHRAN MD Ot E78.5 HYPERLIPIDEMIA, UNSPECIFIED 02/25/2019 SUZETTE COCHRAN MD Ot I11.0 HYPERTENSIVE HEART DISEASE WITH HEART FA 02/25/2019 SUZETTE COCHRAN MD, Ot I25.10 ATHSCL HEART DISEASE OF [place] CORONARY 02/25/2019 SUZETTE COCHRAN MD Ot I50.9 HEART FAILURE, UNSPECIFIED 02/25/2019 ETHEL MG DO Ot F33.8 OTHER RECURRENT DEPRESSIVE DISORDERS 02/25/2019 ETHEL MG DO Ot G47.33 OBSTRUCTIVE SLEEP APNEA (ADULT) (PEDIATR 02/25/2019 ETHEL MG DO Ot I25.10 ATHSCL HEART DISEASE OF [place] CORONARY 02/25/2019 ETHEL MG DO Ot N18.3 CHRONIC KIDNEY DISEASE, STAGE 3 (MODERAT 02/25/2019 ETHEL MG DO Ot Z12.31 ENCNTR SCREEN MAMMOGRAM FOR MALIGNANT NE 02/25/2019 NISHI SHERMAN, CALDERON Schilling Ot N18.3 CHRONIC KIDNEY DISEASE, STAGE 3 (MODERAT 02/25/2019 ANKITA STOVALL APRN Ot E03.9 HYPOTHYROIDISM, UNSPECIFIED 02/25/2019 ANKITA STOVALL APRN Ot E78.00 PURE HYPERCHOLESTEROLEMIA, UNSPECIFIED 02/25/2019 ANKITA STOVALL APRN Ot F32.9 MAJOR DEPRESSIVE DISORDER, SINGLE EPISOD 02/25/2019 ANKITA STOVALL APRN Ot F41.9 ANXIETY DISORDER, UNSPECIFIED 02/25/2019 ANKITA STOVALL APRN Ot G47.30 SLEEP APNEA, UNSPECIFIED 02/25/2019 ANKITA STOVALL APRN Ot I10 ESSENTIAL (PRIMARY) HYPERTENSION 02/25/2019 ANKITA STOVALL APRN Ot I25.10 ATHSCL HEART DISEASE OF [place] CORONARY 02/25/2019 ANKITA STOVALL APRN Ot K58.9 IRRITABLE BOWEL SYNDROME WITHOUT DIARRHE 02/25/2019 ANKITA STOVALL APRN Ot M25.561 PAIN IN RIGHT KNEE 02/25/2019 ANKITA STOVALL APRN Ot M79.7 FIBROMYALGIA 02/25/2019 ANKITA STOVALL APRN Ot S80.01XA CONTUSION OF RIGHT KNEE, INITIAL ENCOUNT 02/25/2019 ANKITA STOVALL APRN Ot W01.0XXA FALL SAME LEV FROM SLIP/TRIP W/O STRIKE 02/25/2019 ANKITA STOVALL APRN Ot Y92.[address] [facility] [address] IN [facility] NON[facility] (PRIVATE 02/25/2019 ANKITA STOVALL APRN Ot Z79.82 FDC (CURRENT) USE OF ASPIRIN 02/25/2019 ANKITA STOVALL APRN Ot Z82.49 FAMILY HX OF ISCHEM HEART DIS AND OTH DI 02/25/2019 ANKITA STOVALL APRN Ot Z87.19 PERSONAL HISTORY OF OTHER DISEASES OF TH 02/25/2019 ANKITA STOVALL APRN Ot Z87.440 PERSONAL HISTORY OF URINARY (TRACT) INFE 02/25/2019 ANKITA STOVALL APRN Ot Z88.1 ALLERGY STATUS TO OTHER ANTIBIOTIC AGENT 02/25/2019 ANKITA STOVALL APRN Ot Z88.5 ALLERGY STATUS TO NARCOTIC AGENT STATUS 02/25/2019 ANKITA STOVALL PATIENT SERVICES MANAGER Ot Z88.8 ALLERGY STATUS TO OTH DRUG/MEDS/BIOL SUB 02/25/2019 ANKITA STOVALL PATIENT SERVICES MANAGER Ot Z90.710 ACQUIRED ABSENCE OF BOTH CERVIX AND UTER 02/25/2019 ANKITA STOVALL APRN Ot Z95.1 PRESENCE OF AORTOCORONARY BYPASS GRAFT 02/25/2019 ANKITA STOVALL APRN Ot Z99.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 Procedures Code Description Performed By Performed On 45.16 ESOPHAGOGASTRODUODENOSCOPY [EGD] W/CLOSE 05/23/2012 14198 PSYCH DIAGNOSTIC EVALUATION 09/25/2012 62325 PSYTX PT&/FAMILY 45 MINUTES 11/20/2012 85873 PSYTX PT&/FAMILY 45 MINUTES 01/06/2013 22109 PSYTX PT&/FAMILY 45 MINUTES 03/05/2013 80952 SLEEP STUDY 04/10/2013 12273 PSYTX PT&/FAMILY 45 MINUTES 04/13/2013 55545 PSYTX PT&/FAMILY 45 MINUTES 05/01/2013 33288 PSYTX PT&/FAMILY 45 MINUTES 08/21/2013 04466 PSYTX PT&/FAMILY 45 MINUTES 09/08/2013 88686 PSYTX PT&/FAMILY 45 MINUTES 09/23/2013 09652 PSYTX PT&/FAMILY 45 MINUTES 11/10/2013 [id number] RESECTION OF RIGHT LARGE INTESTINE, OPEN 05/13/2018 [id number] REPAIR ABDOMINAL WALL, OPEN APPROACH 05/13/2018 Results [...] culture - 05/13/18 12:48 Bacterial urine culture [id number] NRG COLONY COUNT >100,000/ML NRG FTX;REPORTABLE ID/SENSITIVITY [...] OF GROWTH Isolated NRG Bacterial blood culture [id number] [facility] FREE TEXT ENTRY 2 RML REPORTED ID [...] Status Pt. Type Provider Facility Loc./Unit Complaint [id number] 02/25/2014 15:48:00 02/25/2014 23:59:59 CLS Outpatient JENNIFER TIMLASHAECODY [id number] 02/25/2014 15:48:00 02/25/2014 23:59:59 CLS Outpatient JENNIFER TIMLASHAECODY [id number] 11/26/2013 09:48:00 11/26/2013 23:59:59 CLS Outpatient DAVID ALAN MD [id number] 11/10/2013 17:55:00 11/10/2013 23:59:59 CLS Outpatient ALCIDES SEPULVEDA PHD [id number] 09/22/2013 16:49:00 09/22/2013 23:59:59 DUTCH Outpatient ALCIDES SEPULVEDA PHD [id number] 09/08/2013 15:53:00 09/08/2013 23:59:59 CLS Outpatient ALCIDES SEPULVEDA PHD [id number] 08/21/2013 15:57:00 08/21/2013 23:59:59 DUTCH Outpatient ALCIDES SEPULVEDA PHD [id number] 08/20/2013 09:49:00 08/20/2013 23:59:59 CLS Outpatient DAVID ALAN MD [id number] 04/28/2013 15:54:00 04/28/2013 23:59:59 CLS Outpatient ALCIDES SEPULVEDA PHD [id number] 04/10/2013 14:55:00 04/10/2013 23:59:59 CLS Outpatient ALCIDES SEPULVEDA PHD [id number] 09/19/2012 11:27:00 09/19/2012 23:59:59 CLS Outpatient SOLEDAD MAYER DO [id number] 08/04/2012 14:29:00 08/04/2012 23:59:59 [place] [id number] 08/31/2011 14:27:00 08/31/2011 23:59:59 CLS Outpatient [id number] 08/31/2011 14:27:00 08/31/2011 23:59:59 CLS Outpatient [id number] 03/04/2013 14:49:00 Document Registration [id number] 01/06/2013 09:59:00 Document Registration [id number] 11/19/2012 12:48:00 Document Registration [id number] 02/21/2019 10:15:00 02/21/2019 23:59:59 CLS Emergency ANKITA STOVALL PATIENT SERVICES MANAGER Via [facility] R KNEE PAIN [id number] 02/18/2019 17:13:00 02/18/2019 17:55:00 DIS Emergency ANKITA STOVALL PATIENT SERVICES MANAGER Via [facility] ER L THUMB LAC [id number] 02/06/2019 10:29:00 02/06/2019 23:59:59 CLS Outpatient CALDERON ALMODOVAR MD Via [facility] RAD CHRONIC KIDNEY DISEASE STAGE 3 [id number] 01/26/2019 14:25:00 01/26/2019 23:59:59 CLS Outpatient ETHEL GM DO Via [facility] RAD SCREENING [id number] 09/27/2018 19:54:00 09/28/2018 06:05:00 DIS Outpatient WILL MALONE APRN Via [facility] SLEEP SLEEP APNEA,CHF [id number] 09/10/2018 06:36:00 09/10/2018 13:40:00 DIS Outpatient SUZETTE COCHRAN MD Via [facility] CATH ABN STRESS TEST, CAD, CHF, HTN, HLP [id number] 08/27/2018 07:20:00 08/27/2018 23:59:59 CLS Outpatient SUZETTE COCHRAN MD Via [facility] CARD CAD, CHF, HTN, HYPERLIPIDEMIA [id number] 07/19/2018 19:59:00 07/20/2018 06:15:00 DIS Outpatient WILL MALONE APRN Via [facility] SLEEP SLEEP APNEA [id number] 06/06/2018 16:54:00 06/06/2018 17:30:00 DIS Emergency ANKITA STOVALL PATIENT SERVICES MANAGER Via [facility] ER POST OP/INCISION OOZING [id number] 05/31/2018 12:55:00 06/04/2018 17:30:00 DIS Inpatient KEVIN ALCARAZ MD Via [facility] 4TH LLL PNEUMONIA,ELEVATED LFT,FLUID OVERLOAD [id number] 05/27/2018 08:50:00 05/27/2018 10:49:00 DIS Emergency MARICHUY WILLIS MD Via [facility] ER ANXIETY;SOB [id number] 05/13/2018 15:20:00 05/18/2018 13:25:00 DIS Inpatient ANGELITO WAN DO Via [facility] 4TH CECAL VOLVULUS,UTI [id number] 01/13/2018 11:19:00 01/13/2018 23:59:59 CLS Outpatient SUZETTE COCHRAN MD Via [facility] CARD I25.10 CAD [id number] 01/17/2017 12:51:00 01/17/2017 23:59:59 CLS Outpatient SUZETTE COCHRAN MD Via [facility] CARD CAD I25.10 [id number] 09/05/2016 11:05:00 09/05/2016 23:59:59 CLS Outpatient ETHEL MG DO Via [facility] LAB N18.3 [id number] 09/21/2015 11:55:00 09/21/2015 18:55:00 DIS Outpatient SUZETTE COCHRAN MD [facility] CATH UNSTABLE ANGINA, CAD, HTN,HLP [id number] 02/17/2015 10:02:00 02/17/2015 23:59:59 CLS Outpatient ESA BETTS [facility] CARD CAD,CHF,MODESTA,HLP [id number] 06/15/2014 11:44:00 06/15/2014 23:59:59 CLS Outpatient ESA BETTS [facility] CARD CAD,CHF,HTN [id number] 05/08/2014 12:07:00 05/09/2014 13:15:00 DIS Inpatient SUZETTE COCHRAN MD Via [facility] CSD HYPOTENSION ATYPICAL CHEST PAIN [id number] 10/22/2013 09:21:00 10/22/2013 23:59:59 CLS Outpatient ROSITA CRUZ [facility] RAD SCREENING,POST MENAPAUSAL STATUS [id number] 06/09/2013 19:51:00 06/10/2013 06:25:00 DIS Outpatient RAY GAMBOA MD [facility] SLEEP KRISTAL [id number] 04/29/2013 20:58:00 04/30/2013 07:10:00 DIS Outpatient SOLEDAD MAYER DO Via [facility] SLEEP KRISTAL,INSOMNIA [id number] 04/01/2013 21:23:00 04/01/2013 23:28:00 DIS Emergency TRUDY LANGFORD Via [facility] ER FALL/RIGHT RING FINGER INJURY [id number] 03/19/2013 19:06:00 03/19/2013 23:59:59 CLS Outpatient [id number] 01/31/2013 11:45:00 01/31/2013 23:59:59 CLS Outpatient [id number] 12/03/2016 00:00:00 Document Registration [id number] 09/19/2015 12:20:00 Document Registration [id number] 09/19/2015 12:20:00 Document Registration [id number] 09/10/2012 08:52:00 Document Registration [id number] 09/02/2012 10:25:00 Document Registration [id number] 05/21/2012 11:55:00 Document Registration [id number] 05/20/2012 08:59:00 Document Registration [id number] 04/25/2012 21:02:00 Document Registration [id number] 07/31/2011 13:00:00 Document Registration [id number] 07/31/2011 12:57:00 Document Registration [id number] 06/01/2011 09:17:00 Document Registration [id number] 04/26/2011 15:23:00 Document Registration [id number] 04/20/2011 06:50:00 Document Registration [id number] 03/06/2011 07:04:00 Document Registration [id number] 06/22/2010 09:22:00 Document Registration [id number] 05/09/2010 09:42:00 Document Registration [id number] 04/24/2010 06:30:00 Document Registration [id number] 03/30/2010 06:39:00 Document Registration [id number] 02/04/2019 14:40:00 02/04/2019 23:59:59 CLS Outpatient JOSEP BALL LAC [facility]
== END 2019-02-26 18:00 | disposition home or self-care (01) ==
LOC: EDUNIT# 17:48 → ER 17:49
DX: S61.012D Laceration without foreign body of left thumb without damage to nail, subsequent encounter (principal); X58.XXXD Exposure to other specified factors, subsequent encounter

== ENCOUNTER → 2019-05-15 | Outpatient (CLI) | payer MEDICARE, OTHER | LOC: CARD 12:28 | PROVIDERS: ATTEND Physician Assistant | DX: I08.3 Combined rheumatic disorders of mitral, aortic and tricuspid valves (principal); I25.10 Atherosclerotic heart disease of native coronary artery without angina pectoris; I65.29 Occlusion and stenosis of unspecified carotid artery; I50.9 Heart failure, unspecified | CPT/HCPCS: 93306 ==

== ENCOUNTER → 2019-07-27 | Outpatient (CLI) | payer MEDICARE, OTHER ==
[~2019-07-27] MED LIST changes: +TRM50T PO
== END ==
LOC: RAD 10:18
PROVIDERS: ATTEND Physician Assistant
DX: I25.10 Atherosclerotic heart disease of native coronary artery without angina pectoris (principal); I65.29 Occlusion and stenosis of unspecified carotid artery; I11.0 Hypertensive heart disease with heart failure; I50.22 Chronic systolic (congestive) heart failure; I08.0 Rheumatic disorders of both mitral and aortic valves
CPT/HCPCS: 93306

== ENCOUNTER 2020-08-10 16:46 | Emergency (ER) | payer MEDICARE, OTHER ==
[~2020-08-10] VITALS: Ht 64.8 cm; Wt 75.0 kg
[~2020-08-10 16:46] MED LIST changes: +ACHD5005 PO; +ASPI-1238 PO; -ASPI-983 PO; +DIGO250T3 PO; -GUAI400T44 PO; +GUAI400T85 PO; -HYDR-3812 PO; -OMEP20CA13 PO; +OMEP20CA18 PO
--- NOTE | 2020-08-10 16:57 | ED Fall/Injury ---
General Chief Complaint: Upper Extremity Stated Complaint: FALL - L HAND LACERATION Source: patient Exam Limitations: no limitations History of Present Illness Date Seen by Provider: Aug 10, 2020 Time Seen by Provider: 16:57 Initial Comments This is a well-appearing 75-year-old female presents to ER with complaints of left hand laceration. States her hand was caught in her storm door and tore the skin off the back of her hand. Additionally reports some forearm tenderness as well. No other injuries or complaints. Unknown last tetanus. Does take ASA and another antiplatelet drug. Occurred: just prior to arrival Allergies and Home Medications Allergies Coded Allergies: codeine (Verified Allergy, Unknown, 05/13/18) nausea/faints olanzapine (Verified Allergy, Unknown, 08/03/08) cefadroxil (Verified Adverse Reaction, Mild, MAKES HER DIZZY AND FAINTS, 05/15/18) faints Home Medications Aspirin 81 Mg Tablet.dr, 81 MG PO DAILY Prescribed by: THEA BECERRA on 06/04/18 1048 Atorvastatin Calcium 80 Mg Tablet, 80 MG PO HS, (Reported) Brexpiprazole 1 Mg Tablet, 1 MG PO HS, (Reported) Cephalexin 500 Mg Capsule, 500 MG PO TID Prescribed by: ANGELINA HOWELL on 08/10/20 1847 Cholecalciferol (Vitamin D3) 5,000 Unit Capsule, 5,000 UNIT PO HS, (Reported) Colestipol HCl 1 Gm Tablet, 1 GM PO BID, (Reported) Cyanocobalamin (Vitamin B-12) 1,000 Mcg Tablet, 1,000 MCG PO HS, (Reported) Duloxetine HCl 60 Mg Capsule.dr, 60 MG PO BID, (Reported) Enalapril Maleate 2.5 Mg Tablet, 2.5 MG PO DAILY, (Reported) Furosemide 40 Mg Tablet, 40 MG PO DAILY Prescribed by: THEA BECERRA on 06/04/18 1057 Gabapentin 600 Mg Tablet, 600 MG PO BID, (Reported) Levothyroxine Sodium 88 Mcg Tablet, 88 MCG PO HS, (Reported) Metoprolol Tartrate 25 Mg Tablet, 25 MG PO BID, (Reported) Mirtazapine 7.5 Mg Tablet, 7.5 MG PO DAILY, (Reported) Mv,Ca,Iron,Min/FA/Phytosterol 1 Each Tablet, 1 TAB PO HS, (Reported) Niacin 1,000 Mg Tab.er.24h, 1,000 MG PO HS, (Reported) Howard-3 Acid Ethyl Esters 1 Gm Capsule, 2 GM PO BID, (Reported) TAKES 2 (1GM) CAPSULES Omeprazole 20 Mg Capsule.dr, 20 MG PO HS, (Reported) Potassium Chloride 10 Meq Capsule.er, 10 MEQ PO DAILY Prescribed by: THEA BECERRA on 06/04/18 1052 Patient Home Medication List Home Medication List Reviewed: Yes Review of Systems Review of Systems Constitutional: no symptoms reported Eyes: No Symptoms Reported Ears, Nose, Mouth, Throat: no symptoms reported Respiratory: no symptoms reported Cardiovascular: no symptoms reported Gastrointestinal: no symptoms reported Genitourinary: no symptoms reported Musculoskeletal: see HPI Skin: see HPI Psychiatric/Neurological: No Symptoms Reported Past Zaqixsk-Zlyubu-Nzrgux Hx Patient Social History 2nd Hand Smoke Exposure: No Recent Hopitalizations: Yes Immunizations Up To Date Date of Pneumonia Vaccine: Mar 31, 2013 Date of Influenza Vaccine: May 15, 2018 Seasonal Allergies Seasonal Allergies: No Past Medical History Surgeries: Yes (Hiatal Hernia, Breast BX, Bladder surgery x 3 (had mesh sling, tie up, ) Abdominal, Bladder Surgery, CABG, Hysterectomy Respiratory: Yes Sleep Apnea Currently Using CPAP: Yes (SLEEP APNEA) Currently Using BIPAP: No Cardiac: Yes Coronary Artery Disease, High Cholesterol, Hypertension Neurological: No 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 Disorders: 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 Genitourinary: Yes Bladder Infection, Renal Failure, UTI-Chronic Gastrointestinal: Yes Diverticulosis, Irritable Bowel Musculoskeletal: Yes Arthritis, Fibromyalgia Endocrine: Yes Hypothyroidsim HEENT: Yes Cataract Loss of Vision: Denies Cancer: No Psychosocial: Yes Anxiety, Depression Integumentary: No Blood Disorders: No Family Medical History Alzheimer's disease (mother) Cardiovascular disease (mother and father) Carotid artery stenosis (father) Hypercholesterolemia (mother and father) Hypertension Myocardial infarction (mother and father) No Pertinent Family Hx Physical Exam Vital Signs Vital Signs - First Documented 08/10/20 08/10/20 16:56 18:40 Temp 35.8 Pulse 77 Resp 20 B/P (MAP) 147/80 (102) Pulse Ox 93 O2 Delivery Room Air Capillary Refill : Height, Weight, BMI Height: 5'3.00" Weight: 150lbs. 0oz. 68.141997ya; 21.09 BMI Method:Estimated General Appearance: WD/WN, no apparent distress HEENT: PERRL/EOMI, normal ENT inspection Neck: full range of motion, normal inspection Cardiovascular: regular rate, rhythm, no edema Respiratory: lungs clear, normal breath sounds Peripheral Pulses: 2+ Radial Pulses (R), 2+ Radial Pulses (L) Extremities: normal range of motion, normal capillary refill Neurologic/Psychiatric: no motor/sensory deficits, alert, normal mood/affect, oriented x 3 Skin: normal color, warm/dry, other (large skin tear on dorsal aspect of hand ) [place] Coma Score Best Eye Response: (4) Open Spontaneously Best Verbal Response: (5) Oriented Best Motor Response: (6) Obeys Commands Procedures/Interventions Suture Size: 5-0 Progress/Results/Core Measures Results/Orders My Orders Orders - ANGELINA HOWELL APRN Hand, Left, 3 Views (08/10/20 16:57) Forearm, Left, 2 Views (08/10/20 16:57) Dipht,Pertuss(Acell),Tet Adult (Boostrix (08/10/20 18:50) Vital Signs/I&O 08/10/20 08/10/20 16:56 18:40 Temp 35.8 35.8 Pulse 77 63 Resp 20 18 B/P (MAP) 147/80 (102) 138/76 (102) Pulse Ox 93 94 O2 Delivery Room Air Progress Progress Note : Progress Note Pt examined, bleeding controlled with direct pressure. Large dorsal hematoma and skin tear on left hand. Small knot on left forearm, which appears to be a muscle herniation. X-ray of left hand and forearm ordered to assess for any fractures. X-rays reviewed. No acute findings in left forearm. Left hand shows a mildly displaced intra-articular fracture at the base of the left 1st metacarpal. Skin tear was re-approximated as much as possible due to large hematoma. Re- approximated with steri-strips, covered with xeroform, non adherent telfa, and aniya bandage for pressure. Placed in velcro thumb spica so she will still be able to change dressing to her hand. Discussed having close follow up with ortho surgeon of choice. She verbalized understanding. Tetanus was updated today. Diagnostic Imaging Diagonstic Imaging: Xray Plain Films/CT/US/NM/MRI: hand Comments NAME: DEYSI HAGER MED REC#: [id number] PT STATUS: REG ER : 1945 PHYSICIAN: ANGELINA HOWELL APRN ADMIT DATE: 08/10/20/ER Signed Date of Exam:08/10/20 HAND, LEFT, 3 VIEWS EXAMINATION: Left hand 3 views. HISTORY: Trauma. COMPARISON: None available. FINDINGS: There is a mildly displaced intra-articular fracture at the base of the left 1st metacarpal. 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 IMPRESSION: Mildly displaced intra-articular fracture at the base of the left 1st metacarpal. Dictated by: Dictated on workstation # [id number] Dict: 08/10/201741 Trans: 08/10/201939 PJE [id number] Interpreted by: EMERITA SEPULVEDA MD Electronically signed by: EMERITA SEPULVEDA MD 08/10/201939 Reviewed: Reviewed by Me Diagonstic Imaging: Xray Plain Films/CT/US/NM/MRI: forearm Comments NAME: DEYSI HAGER [facility] REC#: [id number] PT STATUS: REG ER : 1945 PHYSICIAN: ANGELINA HOWELL APRN ADMIT DATE: 08/10/20/ER Signed Date of Exam:08/10/20 FOREARM, LEFT, 2 VIEWS INDICATION: Fell and got left hand caught between storm door and door. FINDINGS: Two views of the left hand demonstrate no fracture or dislocation. No foreign bodies are present. Degenerative change is present within the wrist. IMPRESSION: There are no acute findings to the left forearm. Dictated by: Dictated on workstation # [id number] Dict: 08/10/201741 Trans: 08/10/201746 PJE [id number] Interpreted by: MILAGROS CORONADO MD Electronically signed by: MILAGROS CORONADO MD 08/10/201746 Departure Impression Primary Impression: Skin tear Additional Impression: Fracture of metacarpal, first, right hand Disposition: 01 HOME, SELF-CARE Condition: Improved Departure-Patient Inst. Decision time for Depature: 18:43 Referrals: ETHEL MG DO (PCP/Family) Primary Care Physician Patient Instructions: Hand Fracture, Skin Abrasions Add. Discharge Instructions: 1. Keep wound clean and dry. 2. Remove bandage after 24 hours and then re-bandage after cleaning. 3. Keep dressing clean and dry, change if soiled or bleeding through. 4. Monitor for signs of infection: redness, swelling, increased pain, drainage, or redstreaks. Report any of these symptoms to your physician or return to the ER. 5. Take antibiotics as directed and complete full course. 6. Keep arm above your heart as much as possible to reduce swelling. 7. Do not pull steri-strips, let them fall off, this should take about a week. You can trim the wound edges. All discharge instructions reviewed with patient and/or family. Voiced understanding. Scripts Cephalexin (Cephalexin) 500 Mg Capsule 500 MG PO TID for 7 Days, #21 CAP 0 Refills Prov: ANGELINA HOWELL APRN 08/10/20 ANGELINA HOWELL APRN Aug 10, 2020 16:57
--- NOTE | 2020-08-10 17:45 | Diagnostic Imaging Report ---
INDICATION: Fell and got left hand caught between storm door and door. FINDINGS: Two views of the left hand demonstrate no fracture or dislocation. No foreign bodies are present. Degenerative change is present within the wrist. IMPRESSION: There are no acute findings to the left forearm. Dictated by: Dictated on workstation # [id number]
--- NOTE | 2020-08-10 17:46 | Diagnostic Imaging Report ---
EXAMINATION: Left hand 3 views. HISTORY: Trauma. COMPARISON: None available. FINDINGS: There is a mildly displaced intra-articular fracture at the base of the left 1st metacarpal. 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 IMPRESSION: Mildly displaced intra-articular fracture at the base of the left 1st metacarpal. Dictated by: Dictated on workstation # [id number]
[2020-08-10 18:40] VITALS: BP 138/76
[2020-08-10] MEDS ORDERED: CEPH500C PO (18:47)
[2020-08-10] MEDS ORDERED: TETANUS,DIPTH,PERTUSS P/F (BOOSTRIX) 0.5 ML VIAL IM ONE (18:50)
== END 2020-08-10 18:49 | disposition home or self-care (01) ==
LOC: EDUNIT# 16:46 → ER 16:48
DX: S62.232A Other displaced fracture of base of first metacarpal bone, left hand, initial encounter for closed fracture (principal); I10 Essential (primary) hypertension; E03.9 Hypothyroidism, unspecified; F41.9 Anxiety disorder, unspecified; F32.9 Major depressive disorder, single episode, unspecified; E78.00 Pure hypercholesterolemia, unspecified; Z82.49 Family history of ischemic heart disease and other diseases of the circulatory system; Z95.1 Presence of aortocoronary bypass graft; Z79.890 Hormone replacement therapy; Z88.5 Allergy status to narcotic agent; Z88.1 Allergy status to other antibiotic agents; Z88.8 Allergy status to other drugs, medicaments and biological substances; Z79.82 Long term (current) use of aspirin; W23.1XXA Caught, crushed, jammed, or pinched between stationary objects, initial encounter
CPT/HCPCS: 73090; 73130; 90715

== ENCOUNTER → 2020-10-14 | Outpatient (CLI) | payer MEDICARE, OTHER ==
[~2020-10-14] MED LIST changes: +CEPH500C PO; -OMEG-105 PO; +OMEG-218 PO
--- NOTE | 2020-10-14 12:18 | Diagnostic Imaging Report ---
CLINICAL INDICATION: Patient with left amaurosis fugax. Patient has vision loss in left eye lasting approximately 2 minutes, 5 days ago. Vision is back to normal now. No complaints today. EXAM: MRI of the brain performed without IV contrast. Sequences include axial DWI, ADC map, axial T2, axial FLAIR, axial T1, axial gradient echo, and sagittal T1. COMPARISON: Head CT without contrast dated 05/30/2009. FINDINGS: There is a linear and a closely adjacent focal area of diffusion restriction involving the right occipital lobe peritrigonal region with associated small amount of increased T2 signal. There is elevated DWI signal and nearly normalized ADC map signal. There are no other areas of diffusion restriction. There is brain parenchymal volume loss. There are minimal confluent high T2 signal white matter changes involving the periventricular regions of both cerebral hemispheres which may represent mild leukoaraiosis. The [place] vascular structures show no gross abnormality as visualized. The pituitary gland, sella, and suprasellar regions are unremarkable as visualized. There are postoperative changes to both globes which may be related to lens implants. Otherwise, both globes and orbits are unremarkable. The extracranial soft tissues and skull are unremarkable. Paranasal sinuses and mastoid air cells are clear. 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 There is small amount of high T2 signal associated with this area. There is no intracranial hemorrhage. 2: Mild age related brain parenchymal changes. Dictated by: Dictated on workstation # [id number]
== END ==
LOC: RAD 10:31
PROVIDERS: ATTEND Internal Medicine
DX: G45.3 Amaurosis fugax (principal); G31.1 Senile degeneration of brain, not elsewhere classified
CPT/HCPCS: 70551

== ENCOUNTER → 2020-11-02 | Outpatient (CLI) | payer MEDICARE, OTHER ==
[~2020-11-02] VITALS: Ht 162 cm; Wt 73.0 kg
[~2020-11-02] MED LIST changes: +CATHETER FLUSH 10 ML SYR IV PRN; +REGADENOSON 0.4 MG/5 ML SYR (LEXISCAN) IV ONE
[2020-11-02 13:58] VITALS: BP 146/81
--- NOTE | 2020-11-02 15:37 | Cardiology Stress Test Report ---
Stress Test Report Date of Procedure/Referring: Date of Procedure: Nov 02, 2020 Kristyn Hu Admitting Physician Ethel Grove DO Indications: CAD Baseline Heart Rate: 87 Baseline Blood Pressure: Blood Pressure Systolic: 146 Blood Pressure Diastolic: 81 Baseline Vitals Vital Signs Date Time Temp Pulse Resp B/P (MAP) Pulse Ox O2 Delivery O2 Flow Rate FiO2 11/02/20 13:58 86 146/81 (102) 97 Baseline EKG: Baseline EKG: NSR, RBBB Summary After explaining the procedure to the patient, she signed a consent and then brought to the stress nuclear laboratory. Patient received 0.4 mg Lexiscan for stress test, ECG, heart rate and blood pressure were monitored continuously. Resting and stress dose of radio tracer were injected, imaging was acquired and reviewed in short axis, horizontal long axis and vertical long axis views. TID: 1.19 SSS: 7 SDS: 3 EF: 39 1. Patient tolerated Lexiscan well 2. Baseline right bundle branch block persisted during test 3. Reversible ischemia involving the mid to apical anterior wall, basal to mid inferior wall, mild reversibility at the apex 4. Normal left ventricular size, diffuse left ventricular hypokinesia, EF 39% Copy Copies To 1: ETHEL GROVE BASHAR J MD Nov 02, 2020 15:37
== END ==
LOC: CARD 11:19
PROVIDERS: ATTEND Physician Assistant
DX: I25.10 Atherosclerotic heart disease of native coronary artery without angina pectoris (principal); I11.9 Hypertensive heart disease without heart failure; I08.3 Combined rheumatic disorders of mitral, aortic and tricuspid valves
CPT/HCPCS: 78452; 93017; 93306; A9502

== ENCOUNTER → 2020-12-07 | Day surgery (SDC) | payer MEDICARE, OTHER ==
[~2020-12-07] MED LIST changes: -CATHETER FLUSH 10 ML SYR IV PRN; +GUAI400T83 PO; -GUAI400T85 PO; +LIDOCAINE 1% INJ 20 ML 20 ML VIAL ONE; -REGADENOSON 0.4 MG/5 ML SYR (LEXISCAN) IV ONE
[2020-12-07 08:56] VITALS: BP 129/69
--- NOTE | 2020-12-07 09:47 | Implantation of Loop Monitor ---
Implant of Loop Monitior IMPLANTATION OF LOOP MONITOR REPORT DATE OF PROCEDURE: 12/07/20 PREOP DIAGNOSIS: Paroxysmal atrial fibrillation POSTOP DIAGNOSIS: Paroxysmal atrial fibrillation PROCEDURE DETAILS: The patient is a 75 female with history of paroxysmal atrial fibrillation requiring long-term surveillance. Therefore implantable loop recorder was discussed and agreed with the patient. Informed consent was taken. All risks and complications were discussed at length. The patient was draped and prepped in the usual sterile fashion. Local anesthesia was lidocaine, which was given in the substernal area close to the 4th intercostal space. Loop monitor [employer] with serial number [id number] was implanted according to the protocol. Steri- Strips were placed at the end of the procedure. There were no complications and the patient tolerated the procedure well. ANESTHESIA: Local anesthesia with lidocaine. COMPLICATIONS: None CONTRAST/FLUOROSCOPY: None CONCLUSION: Successful implantation of loop monitor with no complication FINAL DIAGNOSIS: Paroxysmal atrial fibrillation Palpitation Hypertension Hyperlipidemia SUZETTE COCHRAN MD December 07, 2020 9:47 am
== END ==
LOC: CATH 09:30
PROVIDERS: ATTEND Internal Medicine Cardiovascular Disease
DX: I48.0 Paroxysmal atrial fibrillation (principal); I25.10 Atherosclerotic heart disease of native coronary artery without angina pectoris; I13.0 Hypertensive heart and chronic kidney disease with heart failure and stage 1 through stage 4 chronic kidney disease, or unspecified chronic kidney disease; I50.22 Chronic systolic (congestive) heart failure; N18.9 Chronic kidney disease, unspecified; E78.2 Mixed hyperlipidemia; I08.0 Rheumatic disorders of both mitral and aortic valves; E03.9 Hypothyroidism, unspecified; G47.33 Obstructive sleep apnea (adult) (pediatric); I65.29 Occlusion and stenosis of unspecified carotid artery; Z88.8 Allergy status to other drugs, medicaments and biological substances; Z88.5 Allergy status to narcotic agent; Z79.82 Long term (current) use of aspirin; Z79.899 Other long term (current) drug therapy; Z79.02 Long term (current) use of antithrombotics/antiplatelets; Z79.890 Hormone replacement therapy
CPT/HCPCS: 33285; C1764

== ENCOUNTER 2021-04-27 10:55 | Emergency (ER) | payer MEDICARE, OTHER ==
[~2021-04-27] VITALS: Ht 162.6 cm; Wt 68.0 kg
[~2021-04-27 10:55] MED LIST changes: +GUAI400T62 PO; -GUAI400T83 PO; -LIDOCAINE 1% INJ 20 ML 20 ML VIAL ONE; -SULF1TAB35 PO; +SULF1TAB38 PO
--- NOTE | 2021-04-27 11:12 | ED General ---
General Stated Complaint: BACK PAIN, FELL Source of Information: Patient Exam Limitations: No Limitations History of Present Illness Date Seen by Provider: Apr 27, 2021 Time Seen by Provider: 11:10 Initial Comments To ER with reports of mid low back pain that does not radiate. This began 2 days ago after she fell from standing position landing on her buttock. Did not hit her head and there were no other injuries. Timing/Duration: 1-2 Days Severity: Moderate Associated Systoms: Denies Symptoms Allergies and Home Medications Allergies Coded Allergies: codeine (Verified Allergy, Unknown, 05/13/18) nausea/faints olanzapine (Verified Allergy, Unknown, 08/03/08) cefadroxil (Verified Adverse Reaction, Mild, MAKES HER DIZZY AND FAINTS, 05/15/18) faints Patient Home Medication List Home Medication List Reviewed: Yes Aspirin (Aspirin EC) 81 Mg Tablet.dr, 81 MG PO DAILY Prescribed by: THEA BECERRA on 06/04/18 1048 Atorvastatin Calcium (Atorvastatin Calcium) 80 Mg Tablet, 80 MG PO HS, (Reported) Entered as Reported by: JOSE ANGEL ANTONY on 05/14/18904 Brexpiprazole (Rexulti) 1 Mg Tablet, 1 MG PO HS, (Reported) Entered as Reported by: JOSE ANGEL ANTONY on 05/14/18904 Cephalexin (Cephalexin) 500 Mg Capsule, 500 MG PO TID Prescribed by: ANGELINA HOWELL on 08/10/20 184 Cholecalciferol (Vitamin D3) (Vitamin D3) 5,000 Unit Capsule, 5,000 UNIT PO HS, (Reported) Entered as Reported by: JOSE ANGEL ANTONY on 05/14/18919 Colestipol HCl (Colestipol HCl) 1 Gm Tablet, 1 GM PO BID, (Reported) Entered as Reported by: JOSE ANGEL ANTONY on 05/14/18904 Cyanocobalamin (Vitamin B-12) (B-12) 1,000 Mcg Tablet, 1,000 MCG PO HS, (Reported) Entered as Reported by: JOSE ANGEL ANTONY on 05/14/18919 Duloxetine HCl (Duloxetine HCl) 60 Mg Capsule.dr, 60 MG PO BID, (Reported) Entered as Reported by: JOSE ANGEL ANTONY on 05/14/18 09 Enalapril Maleate (Vasotec) 2.5 Mg Tablet, 2.5 MG PO DAILY, (Reported) Entered as Reported by: ALEX RAMIREZ on 09/10/18732 Furosemide (Furosemide) 40 Mg Tablet, 40 MG PO DAILY Prescribed by: THEA BECERRA on 06/04/181056 Gabapentin (Gabapentin) 600 Mg Tablet, 600 MG PO BID, (Reported) Entered as Reported by: JOSE ANGEL ANTONY on 05/14/18904 Levothyroxine Sodium (Levothyroxine Sodium) 88 Mcg Tablet, 88 MCG PO HS, (Reported) Entered as Reported by: JOSE ANGEL ANTONY on 05/14/18904 Metoprolol Tartrate (Metoprolol Tartrate) 25 Mg Tablet, 25 MG PO BID, (Reported) Entered as Reported by: JOSE ANGEL ANTONY on 05/14/18904 Mirtazapine (Mirtazapine) 7.5 Mg Tablet, 7.5 MG PO DAILY, (Reported) Entered as Reported by: ALEX RAMIREZ on 09/10/18732 Mv,Ca,Iron,Min/FA/Phytosterol (Centrum [facility] Heart Tab) 1 Each Tablet, 1 TAB PO HS, (Reported) Entered as Reported by: JOSE ANGEL ANTONY on 09/21/15 131 Niacin (Niaspan) 1,000 Mg Tab.er.24h, 1,000 MG PO HS, (Reported) Entered as Reported by: JOSE ANGEL ANTONY on 09/21/15 1310 Stephenson-3 Acid Ethyl Esters (Stephenson-3 Acid Ethyl Esters) 1 Gm Capsule, 2 GM PO BID, (Reported) Entered as Reported by: JOSE ANGEL ANTONY on 05/14/18 09 Omeprazole (Omeprazole) 20 Mg Capsule.dr, 20 MG PO HS, (Reported) Entered as Reported by: JOSE ANGEL ANTONY on 05/14/18904 Potassium Chloride (Potassium Chloride) 10 Meq Capsule.er, 10 MEQ PO DAILY Prescribed by: THEA BECERRA on 06/04/181056 Review of Systems Review of Systems Constitutional: see HPI EENTM: see HPI Respiratory: no symptoms reported Cardiovascular: no symptoms reported Genitourinary: no symptoms reported Musculoskeletal: no symptoms reported Skin: no symptoms reported Psychiatric/Neurological: No Symptoms Reported Hematologic/Lymphatic: No Symptoms Reported Past Njudwmi-Xarbza-Ulpgdd Hx Seasonal Allergies Seasonal Allergies: No Past Medical History Surgeries: Yes (Hiatal Hernia, Breast BX, Bladder surgery x 3 (had mesh sling, tie up, ) Abdominal, Bladder Surgery, CABG, Hysterectomy Respiratory: Yes Sleep Apnea Currently Using CPAP: Yes (SLEEP APNEA) Currently Using BIPAP: No Cardiac: Yes Coronary Artery Disease, High Cholesterol, Hypertension Neurological: No 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 Disorders: No CANE F[employer]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 [employer]ER History: Hysterectomy Genitourinary: Yes Bladder Infection, Renal Failure, UTI-Chronic Gastrointestinal: Yes Diverticulosis, Irritable Bowel Musculoskeletal: Yes Arthritis, Fibromyalgia Endocrine: Yes Hypothyroidsim HEENT: Yes Cataract Loss of Vision: Denies Cancer: No Psychosocial: Yes Anxiety, Depression Integumentary: No Blood Disorders: No Family Medical History Alzheimer's disease (mother) Cardiovascular disease (mother and father) Carotid artery stenosis (father) Hypercholesterolemia (mother and father) Hypertension Myocardial infarction (mother and father) No Pertinent Family Hx Physical Exam Vital Signs Vital Signs - First Documented 04/27/21 11:02 Temp 36.4 Pulse 65 Resp 18 B/P (MAP) 103/67 (79) Pulse Ox 98 O2 Delivery Room Air Capillary Refill : Height, Weight, BMI Height: 5'3.00" Weight: 150lbs. 0oz. 68.537051es; 27.81 BMI Method:Estimated General Appearance: No Apparent Distress, WD/WN Eyes: Bilateral Eye Normal Inspection, Bilateral Eye PERRL, Bilateral Eye EOMI HEENT: PERRL/EOMI, TMs Normal Neck: Full Range of Motion, Normal Inspection Respiratory: No Accessory Muscle Use, No Respiratory Distress Cardiovascular: Regular Rate, Rhythm, Normal Peripheral Pulses Gastrointestinal: Normal Bowel Sounds, Non Tender, Soft Extremity: Normal Capillary Refill, Normal Inspection Neurologic/Psychiatric: Alert, Oriented x3 Skin: Normal Color, Warm/Dry, Other (Ecchymosis to the lateral aspect of the right foot without tenderness to palpation.) Procedures/Interventions Suture Size: 5-0 Progress/Results/Core Measures Suspected Sepsis SIRS Temperature: Pulse: Respiratory Rate: Blood Pressure / Mean: Results/Orders My Orders Orders - ANKITA STOVALL APRN Ct Thoracic/Lumbar Spine Wo (04/27/21 11:08) Vital Signs/I&O 04/27/21 11:02 Temp 36.4 Pulse 65 Resp 18 B/P (MAP) 103/67 (79) Pulse Ox 98 O2 Delivery Room Air Capillary Refill : Departure Communication (Admissions) NAME: DEYSI HAGER [facility] REC#: [id number] PT STATUS: REG ER : 1945 PHYSICIAN: ANKITA STOVALL APRN ADMIT DATE: 04/27/21/ER Draft Date of Exam:04/27/21 CT THORACIC/LUMBAR SPINE WO PROCEDURE: CT thoracic and lumbar spine without contrast. TECHNIQUE: Multiple contiguous axial images were obtained through the thoracic and lumbar spine without the use of intravenous contrast. Sagittal and coronal reformations were then performed. All CT scans use one or more of the following dose optimizing techniques: automated exposure control, MA and/or KvP adjustment based on a patient size and exam type, or iterative reconstruction. INDICATION: Fall 2 days ago with mid back pain. CT thoracic spine: FINDINGS: Curvature and alignment of the thoracic spine is normal. There is an acute superior endplate fracture involving T12 vertebral body. Only minimal retropulsion is present. The bony canal is patent. No significant paraspinous hematoma is identified. Remaining levels of the thoracic spine are unremarkable. Vertebral body heights are maintained. There is generalized spondylosis. There is subsegmental atelectasis left lung base. IMPRESSION: Acute superior endplate fracture T12 vertebral body, without significant loss of height. There is minimal retropulsion but no bony canal stenosis is seen. CT lumbar spine: Curvature of the lumbar spine is normal. There appears to be an acute mild superior endplate compression fracture involving the L2 vertebral body without significant retropulsion. No paraspinous hematoma is seen. Remaining lumbar vertebrae show normal stature. There is a degenerative disc disease L2-L3 and L4-L5 levels. IMPRESSION: Mild acute central compression fracture deformity involving the superior endplate of L2 vertebral body without significant retropulsion or canal stenosis. Dictated on workstation # [id number] Dict: 04/27/21 1203 Trans: 04/27/21 1213 [id number] Interpreted by: SRIDHAR HERMOSILLO MD Electronically signed by: Impression Primary Impression: Lumbar compression fracture Disposition: 01 HOME, SELF-CARE Condition: Stable Departure-Patient Inst. Decision time for Depature: 12:29 Referrals: ETHEL MG DO (PCP/Family) Primary Care Physician Patient Instructions: Vertebral Compression Fracture (DC) Add. Discharge Instructions: Continue to wear your brace. Try not to bend at the back. Follow-up with simi paulson. Pain control as directed. Copy Copies To 1: ETHEL MG PETER J APRN Apr 27, 2021 11:12
--- NOTE | 2021-04-27 12:13 | Diagnostic Imaging Report ---
PROCEDURE: CT thoracic and lumbar spine without contrast. TECHNIQUE: Multiple contiguous axial images were obtained through the thoracic and lumbar spine without the use of intravenous contrast. Sagittal and coronal reformations were then performed. All CT scans use one or more of the following dose optimizing techniques: automated exposure control, MA and/or KvP adjustment based on a patient size and exam type, or iterative reconstruction. INDICATION: Fall 2 days ago with mid back pain. CT thoracic spine: FINDINGS: Curvature and alignment of the thoracic spine is normal. There is an acute superior endplate fracture involving T12 vertebral body. Only minimal retropulsion is present. The bony canal is patent. No significant paraspinous hematoma is identified. Remaining levels of the thoracic spine are unremarkable. Vertebral body heights are maintained. There is generalized spondylosis. There is subsegmental atelectasis left lung base. IMPRESSION: Acute superior endplate fracture T12 vertebral body, without significant loss of height. There is minimal retropulsion but no bony canal stenosis is seen. CT lumbar spine: Curvature of the lumbar spine is normal. There appears to be an acute mild superior endplate compression fracture involving the L2 vertebral body without significant retropulsion. No paraspinous hematoma is seen. Remaining lumbar vertebrae show normal stature. There is a degenerative disc disease L2-L3 and L4-L5 levels. IMPRESSION: Mild acute central compression fracture deformity involving the superior endplate of L2 vertebral body without significant retropulsion or canal stenosis. Dictated by: Dictated on workstation # [id number]
[2021-04-27] MEDS ORDERED: TRAM-42 PO ×2 (12:30→12:56)
[2021-04-27] MEDS ORDERED: TRM50T PO (13:00)
[2021-04-27 13:05] VITALS: BP 119/74
== END 2021-04-27 13:05 | disposition home or self-care (01) ==
LOC: EDUNIT# 10:55 → ER 10:57
DX: S32.020A Wedge compression fracture of second lumbar vertebra, initial encounter for closed fracture (principal); S90.31XA Contusion of right foot, initial encounter; I10 Essential (primary) hypertension; G47.30 Sleep apnea, unspecified; E03.9 Hypothyroidism, unspecified; E78.00 Pure hypercholesterolemia, unspecified; I25.10 Atherosclerotic heart disease of native coronary artery without angina pectoris; F41.9 Anxiety disorder, unspecified; F32.9 Major depressive disorder, single episode, unspecified; Z79.890 Hormone replacement therapy; Z79.82 Long term (current) use of aspirin; Z79.899 Other long term (current) drug therapy; W18.30XA Fall on same level, unspecified, initial encounter
CPT/HCPCS: 72128; 72131

== ENCOUNTER 2021-09-07 16:17 | Inpatient (IN) | payer MEDICARE, OTHER ==
[~2021-09-07] VITALS: Ht 162.5 cm; Wt 59.8 kg
[~2021-09-07 16:17] MED LIST changes: +TRAM-42 PO
[2021-09-07] MEDS ORDERED: CEFEPIME INJECTION 1,000 MG in NS (IVPB) 50 ML IV ONE (16:30)
[2021-09-07] MEDS ORDERED: LACTATED RINGERS 1,000 ML IV ONE ×3 (16:30→19:22)
[2021-09-07] MEDS ORDERED: VANCOMYCIN INJECTION 1,250 MG in NS (IVPB) 250 ML IV ONE (16:30)
--- NOTE | 2021-09-07 16:36 | ED General ---
General Chief Complaint: General Problems/Pain Stated Complaint: WEAKNESS Source of Information: Patient, EMS Exam Limitations: Other (Dementia/delirium) (MARICHUY WILLIS) History of Present Illness Date Seen by Provider: Sep 07, 2021 Time Seen by Provider: 16:08 Initial Comments The patient presents to the ER by EMS from home with chief complaint that for the past several weeks she has had progressively worsening inability to walk without assistance, confused speech and shaking. No history of diabetes. Patient of Dr. Winters. Her will be accompanying her to the ER shortly. EMS remarks they did not check sugar but she looked very dehydrated. They got her up to transfer her to the cot and she said she got winded but did not become near syncopal. No diarrhea constipation dysuria cough or shortness of air however the patient is a dubious historian. She is on Plavix and has had falls recently. She is not complaining of any pain. She is not having any nausea (MARICHUY WILLIS) Allergies and Home Medications Allergies Coded Allergies: codeine (Verified Allergy, Unknown, 05/13/18) nausea/faints olanzapine (Verified Allergy, Unknown, 08/03/08) cefadroxil (Verified Adverse Reaction, Mild, MAKES HER DIZZY AND FAINTS, 05/15/18) faints Patient Home Medication List Home Medication List Reviewed: Yes (MARICHUY WILLIS) Aspirin (Aspirin EC) 81 Mg Tablet.dr, 81 MG PO DAILY Prescribed by: THEA BECERRA on 06/04/18 1048 Atorvastatin Calcium (Atorvastatin Calcium) 80 Mg Tablet, 80 MG PO HS, (Reported) Entered as Reported by: JOSE ANGEL ANTONY on 05/14/18 0905 Brexpiprazole (Rexulti) 1 Mg Tablet, 1 MG PO HS, (Reported) Entered as Reported by: JOSE ANGEL ANTONY on 05/14/18 0905 Cephalexin (Cephalexin) 500 Mg Capsule, 500 MG PO TID Prescribed by: ANGELINA HOWELL on 08/10/20 184 Cholecalciferol (Vitamin D3) (Vitamin D3) 5,000 Unit Capsule, 5,000 UNIT PO HS, (Reported) Entered as Reported by: JOSE ANGEL ANTONY on 05/14/18 0920 Colestipol HCl (Colestipol HCl) 1 Gm Tablet, 1 GM PO BID, (Reported) Entered as Reported by: JOSE ANGEL ANTONY on 05/14/18904 Cyanocobalamin (Vitamin B-12) (B-12) 1,000 Mcg Tablet, 1,000 MCG PO HS, (Reported) Entered as Reported by: JOSE ANGEL ANTONY on 05/14/18 09 Duloxetine HCl (Duloxetine HCl) 60 Mg Capsule.dr, 60 MG PO BID, (Reported) Entered as Reported by: JOSE ANGEL ANTONY on 05/14/18904 Enalapril Maleate (Vasotec) 2.5 Mg Tablet, 2.5 MG PO DAILY, (Reported) Entered as Reported by: ALEX RAMIREZ on 09/10/18 0733 Furosemide (Furosemide) 40 Mg Tablet, 40 MG PO DAILY Prescribed by: THEA BECERRA on 06/04/18 105 Gabapentin (Gabapentin) 600 Mg Tablet, 600 MG PO BID, (Reported) Entered as Reported by: JOSE ANGEL ANTONY on 05/14/18904 Levothyroxine Sodium (Levothyroxine Sodium) 88 Mcg Tablet, 88 MCG PO HS, (Reported) Entered as Reported by: JOSE ANGEL ANTONY on 05/14/18904 Metoprolol Tartrate (Metoprolol Tartrate) 25 Mg Tablet, 25 MG PO BID, (Reported) Entered as Reported by: JOSE ANGEL ANTONY on 05/14/18904 Mirtazapine (Mirtazapine) 7.5 Mg Tablet, 7.5 MG PO DAILY, (Reported) Entered as Reported by: ALEX RAMIREZ on 09/10/18 0733 Mv,Ca,Iron,Min/FA/Phytosterol (Centrum Specialist Heart Tab) 1 Each Tablet, 1 TAB PO HS, (Reported) Entered as Reported by: JOSE ANGEL ANTONY on 09/21/15 131 Niacin (Niaspan) 1,000 Mg Tab.er.24h, 1,000 MG PO HS, (Reported) Entered as Reported by: JOSE ANGEL ANTONY on 09/21/15 131 Brussels-3 Acid Ethyl Esters (Brussels-3 Acid Ethyl Esters) 1 Gm Capsule, 2 GM PO BID, (Reported) Entered as Reported by: JOSE ANGEL ANTONY on 05/14/18 09 Omeprazole (Omeprazole) 20 Mg Capsule.dr, 20 MG PO HS, (Reported) Entered as Reported by: JOSE ANGEL ANTONY on 05/14/18 0905 Potassium Chloride (Potassium Chloride) 10 Meq Capsule.er, 10 MEQ PO DAILY Prescribed by: THEA BECERRA on 06/04/18 1057 Tramadol HCl (Tramadol HCl) 50 Mg Tablet, 50 MG PO Q6H PRN for PAIN Prescribed by: JOSEFINA RIVAS on 04/27/21 1301 Review of Systems Review of Systems Constitutional: see HPI (Patient's review of systems per patient and EMS report from ); No chills; dizziness; No fever; malaise, weakness EENTM: No ear discharge, No ear pain Respiratory: No cough, No phlegm, No short of breath Cardiovascular: No edema, No palpitations Gastrointestinal: No abdominal pain, No nausea, No vomiting Genitourinary: No discharge, No dysuria Musculoskeletal: No back pain, No joint pain (MARICHUY WILLIS) All Other Systems Reviewed Negative Unless Noted: Yes (MARICHUY WILLIS) Past Nzdsrgw-Znsyju-Pdnngj Hx Patient Social History Tobacco Use?: No Use of E-Cig and/or Vaping dev: No (MARICHUY WILLIS) Immunizations Up To Date First/Initial COVID19 Vaccinat: NONE Second COVID19 Vaccination Scooby: NONE (MARICHUY WILLIS) Seasonal Allergies Seasonal Allergies: No (MARICHUY WILLIS) Past Medical History Surgeries: Yes (Hiatal Hernia, Breast BX, Bladder surgery x 3 (had mesh sling, tie up, ) Abdominal, Bladder Surgery, CABG, Hysterectomy Respiratory: Yes Sleep Apnea Currently Using CPAP: Yes (SLEEP APNEA) Currently Using BIPAP: No Cardiac: Yes Coronary Artery Disease, High Cholesterol, Hypertension Neurological: No 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 Genitourinary: Yes Bladder Infection, Renal Failure, UTI-Chronic Gastrointestinal: Yes Diverticulosis, Irritable Bowel Musculoskeletal: Yes Arthritis, Fibromyalgia Endocrine: Yes Hypothyroidsim HEENT: Yes Cataract Loss of Vision: Denies Cancer: No Psychosocial: Yes Anxiety, Depression Integumentary: No Blood Disorders: No (MARICHUY WILLIS) Family Medical History Alzheimer's disease (mother) Cardiovascular disease (mother and father) Carotid artery stenosis (father) Hypercholesterolemia (mother and father) Hypertension Myocardial infarction (mother and father) No Pertinent Family Hx (MARICHUY WILLIS) Physical Exam-Suspected Sepsis Physical Exam Vital Signs Vital Signs - First Documented 09/07/21 09/07/21 16:31 17:25 Temp 35.6 Pulse 67 Resp 18 B/P (MAP) 93/53 (66) Pulse Ox 97 O2 Delivery Room Air O2 Flow Rate 2.00 (BRIANNE OLMSTEAD MD) Vital Signs Capillary Refill : (MARICHUY WILLIS) Height, Weight, BMI Height: 5'3.00" Weight: 150lbs. 0oz. [id number]; 25.00 BMI Method:Estimated General Appearance: Chronically ill, Moderate Distress, Thin, Other (Muscle wasting/atrophy, lips are crusted) Eyes: Bilateral Eye Normal Inspection, Bilateral Eye PERRL, Bilateral Eye EOMI HEENT: PERRL/EOMI, TMs Normal, Normal ENT Inspection; No Pharynx Normal (Crusted lips and dry crusty oral mucosa), No Moist Mucous Membranes Neck: Full Range of Motion, Normal Inspection, Non Tender, Supple Respiratory: Lungs Clear, Normal Breath Sounds, No Accessory Muscle Use, Respiratory Distress (Mild to moderate with respiratory rate 25-27 and oxygen saturation in the 92 to 96% on room air.) Cardiovascular: Regular Rate, Rhythm, No Edema, No Murmur, Normal Peripheral Pulses Gastrointestinal: Normal Bowel Sounds, Non Tender, Soft Extremity: Normal Capillary Refill, Normal Inspection, No Pedal Edema Neurologic/Psychiatric: Alert; No Oriented x3 (Oriented to self but not time or situation); Normal Mood/Affect (MARICHUY WILLIS) Skin: warm/dry (BRIANNE OLMSTEAD MD) Focused Exam Lactate Level 09/07/21 16:36: Lactic Acid Level 3.13*H (BRIANNE OLMSTEAD MD) Lactic Acid Level Laboratory Tests Test 09/07/21 16:36 Lactic Acid Level 3.13 MMOL/L (0.50-2.00) *H (BRIANNE OLMSTEAD MD) Procedures/Interventions Suture Size: 5-0 (MARICHUY WILLIS) Progress/Results/Core Measures Suspected Sepsis SIRS Temperature: Pulse: Respiratory Rate: Laboratory Tests 09/07/21 16:23: White Blood Count 8.7 Blood Pressure / Mean: 09/07/21 16:36: Lactic Acid Level 3.13*H Laboratory Tests 09/07/21 16:23: Creatinine 2.84H, INR Comment 1.0, Platelet Count 231, Total Bilirubin 0.7 (MARICHUY WILLIS) Results/Orders Lab Results Laboratory Tests Test 09/07/21 16:23 09/07/21 16:25 09/07/21 16:27 09/07/21 16:36 Range/Units White Blood Count 8.7 4.3-11.0 10^3/uL Red Blood Count 3.93 3.80-5.11 10^6/uL Hemoglobin 12.0 11.5-16.0 g/dL Hematocrit 37 35-52 % Mean Corpuscular Volume 94 80-99 fL Mean Corpuscular Hemoglobin 31 25-34 pg Mean Corpuscular Hemoglobin Concent 33 32-36 g/dL Red Cell Distribution Width 13.0 10.0-14.5 % Platelet Count 231 130-400 10^3/uL Mean Platelet Volume 10.7 9.0-12.2 fL Immature Granulocyte % (Auto) 0 % Neutrophils (%) (Auto) 87 H 42-75 % Lymphocytes (%) (Auto) 7 L 12-44 % Monocytes (%) (Auto) 6 0-12 % Eosinophils (%) (Auto) 0 0-10 % Basophils (%) (Auto) 0 0-10 % Neutrophils # (Auto) 7.5 1.8-7.8 10^3/uL Lymphocytes # (Auto) 0.6 L 1.0-4.0 10^3/uL Monocytes # (Auto) 0.5 0.0-1.0 10^3/uL Eosinophils # (Auto) 0.0 0.0-0.3 10^3/uL Basophils # (Auto) 0.0 0.0-0.1 10^3/uL Immature Granulocyte # (Auto) 0.0 0.0-0.1 10^3/uL Neutrophils % (Manual) 86 % Lymphocytes % (Manual) 7 % Monocytes % (Manual) 7 % Blood Morphology Comment NORMAL Prothrombin Time 13.9 12.2-14.7 SEC INR Comment 1.0 0.8-1.4 Activated Partial Thromboplast Time 35 24-35 SEC Sodium Level 132 L 135-145 MMOL/L Potassium Level 4.2 3.6-5.0 MMOL/L Chloride Level 99 98-107 MMOL/L Carbon Dioxide Level 18 L 21-32 MMOL/L Anion Gap 15 H 5-14 MMOL/L Blood Urea Nitrogen 44 H 7-18 MG/DL Creatinine 2.84 H 0.60-1.30 MG/DL Estimat Glomerular Filtration Rate 16 BUN/Creatinine Ratio 15 Glucose Level 98 70-105 MG/DL Calcium Level 8.8 8.5-10.1 MG/DL Corrected Calcium 9.4 8.5-10.1 MG/DL Total Bilirubin 0.7 0.1-1.0 MG/DL Aspartate Amino Transf (AST/SGOT) 29 5-34 U/L Alanine Aminotransferase (ALT/SGPT) 16 0-55 U/L Alkaline Phosphatase 59 40-136 U/L C-Reactive Protein High Sensitivity 37.52 H 0.00-0.50 MG/DL Total Protein 6.6 6.4-8.2 GM/DL Albumin 3.3 3.2-4.5 GM/DL SARS-CoV-2 RNA (RT-PCR) Detected H Not Detecte Glucometer 90 70-110 MG/DL Lactic Acid Level 3.13 *H 0.50-2.00 MMOL/L Test 09/07/21 16:40 09/07/21 16:50 09/07/21 17:10 Range/Units Influenza Type A (RT-PCR) Not Detected Not Detecte Influenza Type B (RT-PCR) Not Detected Not Detecte Blood Gas Puncture Site RIGHT RADIAL Blood Gas Patient Temperature 35.6 Arterial Blood pH 7.37 7.37-7.43 Arterial Blood Partial Pressure CO2 34 L 35-45 MMHG Arterial Blood Partial Pressure O2 51 L 79-93 MMHG Arterial Blood HCO3 20 L 23-27 MMOL/L Arterial Blood Total CO2 20.6 L 21.0-31.0 MMOL/L Arterial Blood Oxygen Saturation 86 L 94-100 % Arterial Blood Base Excess -5.2 L -2.5-2.5 MMOL/L Claudio Test POSITIVE Blood Gas Ventilator Setting NO Blood Gas Inspired Oxygen N/A Urine Color YELLOW Urine Clarity CLEAR Urine pH 6.0 5-9 Urine Specific [place] 1.025 H 1.016-1.022 Urine Protein NEGATIVE NEGATIVE Urine Glucose (UA) NEGATIVE NEGATIVE Urine Ketones NEGATIVE NEGATIVE Urine Nitrite NEGATIVE NEGATIVE Urine Bilirubin NEGATIVE NEGATIVE Urine Urobilinogen 0.2 < = 1.0 MG/DL Urine Leukocyte Esterase 1+ H NEGATIVE Urine RBC (Auto) NEGATIVE NEGATIVE Urine RBC NONE /HPF Urine WBC 25-50 H /HPF Urine Crystals NONE /LPF Urine Bacteria LARGE H /HPF Urine Casts PRESENT /LPF Urine Hyaline Casts 5-10 H /LPF Urine Mucus NEGATIVE /LPF Urine Culture Indicated YES (BRIANNE OLMSTEAD MD) Medications Given in ED Current Medications Medications Dose Ordered Sig/Victorina Route Start Time Stop Time Status Last Admin Dose Admin Dexamethasone Sodium Phosphate 6 mg ONCE ONCE IV 09/07/21 17:30 09/07/21 17:31 DC 09/07/21 17:31 6 MG Lactated Ringer's 1,000 ml @ 0 mls/hr Q0M ONCE IV 09/07/21 16:30 09/07/21 16:31 DC 09/07/21 16:49 1,000 MLS/HR Lactated Ringer's 1,000 ml @ 0 mls/hr Q0M ONCE IV 09/07/21 16:30 09/07/21 16:31 DC 09/07/21 17:32 1,000 MLS/HR (BRIANNE OLMSTEAD MD) Vital Signs/I&O 09/07/21 09/07/21 09/07/21 09/07/21 16:31 17:25 17:45 18:33 Temp 35.6 Pulse 67 65 64 Resp 18 20 18 B/P (MAP) 93/53 (66) 101/64 124/62 Pulse Ox 97 96 98 O2 Delivery Room Air Nasal Cannula Nasal Cannula Room Air O2 Flow Rate 2.00 2.00 (BRIANNE OLMSTEAD MD) Vital Signs/I&O Capillary Refill : (MARICHUY WILLIS) Progress Note : Time: 16:35 Progress Note Based on hypothermia and tachypnea we are doing a septic work-up with broad- spectrum coverage including cefepime and vancomycin. COVID and influenza swab for increased respiratory rate. The patient's not having any unilateral symptoms and has a NIH that is unremarkable. Seems to be a slow onset delirium possibly due to infection, dehydration or both. 2 L of fluids will be 30 mL/kg. Her initial blood pressures with an adult long cuff are soft in the 70-80 systolic range. EMS remarks she had a blood pressure of 101 for them. Will be placed an appropriate sized cuff her blood pressure was 107/56 which is more believable. (MARICHUY WILLIS) Progress Note : Time: 18:[address] scan was viewed by me and report reviewed. No acute abnormalities were i dentified. Patient was cleared to be transferred to the floor. (BRIANNE OLMSTEAD MD) ECG Initial ECG Impression Date: Sep 07, 2021 Initial ECG Impression Time: 17:58 Initial ECG Rate: 66 Initial ECG Rhythm: Normal Sinus Initial ECG Intervals: Normal Initial ECG Impression: Normal Initial ECG Comparisson: No Previous ECG Available Comment Sinus rhythm with right bundle branch block. (MARICHUY WILLIS) Diagnostic Imaging Diagonstic Imaging: Xray Plain Films/CT/US/NM/MRI: chest Comments [facility], [place] NAME: DEYSI HAGER MED REC#: [id number] PT STATUS: REG ER : 1945 PHYSICIAN: MARICHUY WILLIS MD ADMIT DATE: 09/07/21/ER Signed Date of Exam:09/07/21 CHEST 1 VIEW, AP/PA ONLY EXAMINATION: Chest 1 view. HISTORY: Shortness of breath and confusion. COMPARISON: 09/10/2018. FINDINGS: There is prominence of the pulmonary vasculature. Heart size is normal. Surgical changes from CABG. Mild perihilar and basilar interstitial opacities. No pleural effusion or pneumothorax. The osseous structures are intact. IMPRESSION: No findings of pulmonary vascular congestion with mid and lower lung interstitial opacities. This can be seen with pulmonary edema or atypical infection. Dictated by: Dictated on workstation # [id number] Dict: 09/07/211704 Trans: 09/07/211715 [facility] [id number] Interpreted by: JAMES PARADA DO Electronically signed by: JAMES PARADA DO 09/07/211715 Reviewed: Reviewed by Me Diagonstic Imaging: CT Plain Films/CT/US/NM/MRI: c-spine, head Reviewed: Reviewed by Me (MARICHUY WILLIS) Comments CT head and cervical spine viewed by me and report reviewed. See report below: NAME: DEYSI HAGER MED REC#: [id number] PT STATUS: ADM IN : 1945 PHYSICIAN: MARICHUY WILLIS MD ADMIT DATE: 09/07/21 Signed Date of Exam:09/07/21 CT HEAD/CERVICAL SPINE WO EXAMINATION: CT head and CT cervical spine without contrast. TECHNIQUE: Multiple contiguous axial images were obtained through the brain and cervical spine without the use of intravenous contrast. Sagittal and coronal reformations through the cervical spine were then performed. All CT scans use one or more of the following dose optimizing techniques: automated exposure control, MA and/or KvP adjustment based on patient size and exam type or iterative reconstruction. HISTORY: Head and neck pain after fall. COMPARISON: None available. FINDINGS: HEAD: The ventricles and sulci are normal. Mild hypodensities throughout the supratentorial white matter of both cerebral hemispheres. No acute intracranial hemorrhage or abnormal extra-axial fluid collections are present. No hyperdense vessel. The calvarium is intact. The mastoid air cells are clear. The visualized paranasal sinuses are clear. The orbits are normal. C-SPINE: Vertebral body height and alignment are preserved. No acute fracture, dislocation or destructive osseous process. Multilevel facet hypertrophy without perched facet. Multilevel cervical spondylosis. The paraspinous soft tissues are normal. The visualized thyroid gland is normal. Patchy consolidation within the left upper lobe. IMPRESSION: 1. No acute intracranial abnormality. Chronic microangiopathy. 2. Degenerative changes of the cervical spine without acute osseous abnormality. 3. Patchy consolidation within the visualized left upper lobe. Dictated by: Dictated on workstation # [id number] Dict: 09/07/211815 Trans: 09/07/211827 [facility] [id number] Interpreted by: JAMES PARADA DO Electronically signed by: JAMES PARADA DO 09/07/211827 (BRIANNE OLMSTEAD MD) Departure Communication (Admissions) Time/Spoke to Admitting Phy: 17:43 Discussed the case with Dr. Holt and he agrees to admit the patient for oxygen, fluid rehydration, NONA to the floor. (MARICHUY WILLIS) Impression Primary Impression: COVID-19 Additional Impressions: NONA (acute kidney injury) Dehydration Delirium Acute respiratory failure with hypoxemia Disposition: ADMITTED INPATIENT Condition: Stable Admissions Decision to Admit Reason: Admit from ER (General) Decision to Admit/Date: Sep 07, 2021 Time/Decision to Admit Time: 17:43 (MARICHUY WILLIS) Departure-Patient Inst. Referrals: ETHEL MG DO (PCP/Family) Primary Care Physician Copy Copies To 1: ETHEL MG TITUS J Sep 07, 2021 16:36 BRIANNE OLMSTEAD MD Sep 07, 2021 18:47
[2021-09-07 16:41] LABS: BASOPHILS % (AUTO) 0 % (0-10); EOSINOPHILS % (AUTO) 0 % (0-10); HEMATOCRIT 37 % (35-52); LYMPHOCYTES # (AUTO) 0.6 10^3/uL (1.0-4.0); LYMPHOCYTES % (AUTO) 7 % (12-44); MEAN CORPUSCULAR HEMOGLOBIN 31 pg (25-34); MEAN CORPUSCULAR HGB CONC 33 g/dL (32-36); MEAN CORPUSCULAR VOLUME 94 fL (80-99); MEAN PLATELET VOLUME 10.7 fL (9.0-12.2); MONOCYTES # (AUTO) 0.5 10^3/uL (0.0-1.0); MONOCYTES % (AUTO) 6 % (0-12); NEUTROPHILS # (AUTO) 7.5 10^3/uL (1.8-7.8); NEUTROPHILS % (AUTO) 87 % (42-75); PLATELET COUNT 231 10^3/uL (130-400); WHITE BLOOD COUNT 8.7 10^3/uL (4.3-11.0)
[2021-09-07 16:45] LABS: ALBUMIN 3.3 GM/DL (3.2-4.5); POTASSIUM 4.2 MMOL/L (3.6-5.0)
[2021-09-07 16:46] LABS: CALCIUM 8.8 MG/DL (8.5-10.1)
[2021-09-07 16:47] LABS: TOTAL PROTEIN 6.6 GM/DL (6.4-8.2)
[2021-09-07 16:49] LABS: BILIRUBIN,TOTAL 0.7 MG/DL (0.1-1.0)
[2021-09-07 16:51] LABS: CREATININE SERUM 2.84 MG/DL (0.60-1.30)
[2021-09-07 16:58] LABS: ABG BASE EXCESS -5.2 MMOL/L (-2.5-2.5); ABG OXYGEN SATURATION 86 % (94-100); ABG PCO2 34 MMHG (35-45); ABG PH 7.37 (7.37-7.43); ABG PO2 51 MMHG (79-93); ABG TCO2 20.6 MMOL/L (21.0-31.0); ALLENS TEST POSITIVE; PATIENT TEMP 35.6; VENTILATOR NO
--- NOTE | 2021-09-07 17:15 | Diagnostic Imaging Report ---
EXAMINATION: Chest 1 view. HISTORY: Shortness of breath and confusion. COMPARISON: 09/10/2018. FINDINGS: There is prominence of the pulmonary vasculature. Heart size is normal. Surgical changes from CABG. Mild perihilar and basilar interstitial opacities. No pleural effusion or pneumothorax. The osseous structures are intact. IMPRESSION: No findings of pulmonary vascular congestion with mid and lower lung interstitial opacities. This can be seen with pulmonary edema or atypical infection. Dictated by: Dictated on workstation # [id number]
[2021-09-07 17:17] LABS: BILIRUBIN,URINE NEGATIVE (NEGATIVE); CLARITY,URINE CLEAR; COLOR,URINE YELLOW; GLUCOSE, URINE (UA) NEGATIVE (NEGATIVE); KETONES,URINE NEGATIVE (NEGATIVE); LEUKOCYTE ESTERASE ,URINE 1+ (NEGATIVE); NITRITE,URINE NEGATIVE (NEGATIVE); PROTEIN,URINE NEGATIVE (NEGATIVE)
[2021-09-07 17:19] LABS: PROTHROMBIN TIME PATIENT 13.9 SEC (12.2-14.7)
[2021-09-07 18:08] LABS: BACTERIA,URINE LARGE /HPF; WBC,URINE 25-50 /HPF
[2021-09-07 18:15] LABS: LYMPHOCYTES % (MANUAL) 7 %; MONOCYTES % (MANUAL) 7 %; NEUTROPHILS % (MANUAL) 86 %; RBC MORPH NORMAL
--- NOTE | 2021-09-07 18:27 | Diagnostic Imaging Report ---
EXAMINATION: CT head and CT cervical spine without contrast. TECHNIQUE: Multiple contiguous axial images were obtained through the brain and cervical spine without the use of intravenous contrast. Sagittal and coronal reformations through the cervical spine were then performed. All CT scans use one or more of the following dose optimizing techniques: automated exposure control, MA and/or KvP adjustment based on patient size and exam type or iterative reconstruction. HISTORY: Head and neck pain after fall. COMPARISON: None available. FINDINGS: HEAD: The ventricles and sulci are normal. Mild hypodensities throughout the supratentorial white matter of both cerebral hemispheres. No acute intracranial hemorrhage or abnormal extra-axial fluid collections are present. No hyperdense vessel. The calvarium is intact. The mastoid air cells are clear. The visualized paranasal sinuses are clear. The orbits are normal. C-SPINE: Vertebral body height and alignment are preserved. No acute fracture, dislocation or destructive osseous process. Multilevel facet hypertrophy without perched facet. Multilevel cervical spondylosis. The paraspinous soft tissues are normal. The visualized thyroid gland is normal. Patchy consolidation within the left upper lobe. IMPRESSION: 1. No acute intracranial abnormality. Chronic microangiopathy. 2. Degenerative changes of the cervical spine without acute osseous abnormality. 3. Patchy consolidation within the visualized left upper lobe. Dictated by: Dictated on workstation # [id number]
[2021-09-07 19:05] VITALS: BP 122/76
[2021-09-07 20:06] VITALS: BP 122/76
[2021-09-07] MEDS ORDERED: RT-ALBUTEROL HFA 8.5 GM INHALER IH PRN (21:30)
[2021-09-07] MEDS ORDERED: ONDANSETRON 4 MG/2 ML (SDV) Z0FRAN IV PRN (22:00)
[2021-09-07] MEDS: LACTATED RINGERS 1,000 ML IV SCH (23:13)
[2021-09-07] MEDS: QUEtiapine 25 MG (SEROquel) TAB IMMEDIATE RELEASE PO SCH (23:13)
[2021-09-07 23:14] VITALS: BP 124/68
[2021-09-08] MEDS: LACTATED RINGERS 1,000 ML IV SCH ×3 (02:26→18:26)
[2021-09-08 04:00] VITALS: BP 125/69
[2021-09-08 06:39] LABS: BASOPHILS % (AUTO) 0 % (0-10); EOSINOPHILS % (AUTO) 0 % (0-10); HEMATOCRIT 32 % (35-52); HEMOGLOBIN 10.7 g/dL (11.5-16.0); LYMPHOCYTES # (AUTO) 0.3 10^3/uL (1.0-4.0); LYMPHOCYTES % (AUTO) 6 % (12-44); MEAN CORPUSCULAR HEMOGLOBIN 31 pg (25-34); MEAN CORPUSCULAR HGB CONC 34 g/dL (32-36); MEAN CORPUSCULAR VOLUME 92 fL (80-99); MEAN PLATELET VOLUME 10.4 fL (9.0-12.2); MONOCYTES # (AUTO) 0.1 10^3/uL (0.0-1.0); MONOCYTES % (AUTO) 3 % (0-12); NEUTROPHILS % (AUTO) 91 % (42-75); PLATELET COUNT 258 10^3/uL (130-400); WHITE BLOOD COUNT 5.5 10^3/uL (4.3-11.0)
[2021-09-08 07:01] LABS: POTASSIUM 4.4 MMOL/L (3.6-5.0)
[2021-09-08 07:02] LABS: CALCIUM 8.4 MG/DL (8.5-10.1)
[2021-09-08 07:06] LABS: CREATININE SERUM 1.69 MG/DL (0.60-1.30)
[2021-09-08 08:27] VITALS: BP 119/63
[2021-09-08] MEDS: MICONAZOLE 2% POWDER (DESENEX AF) 90 GM TOP SCH ×2 (08:54→20:14)
[2021-09-08] MEDS ORDERED: ENOXAPARIN 100 MG/1 ML (LOVENOX) SYR SC SCH (12:00)
[2021-09-08] MEDS ORDERED: PIPERACILLIN SODIUM/TAZOBACTAM 4.5 GM in NS (IVPB) 100 ML IV NR (12:00)
[2021-09-08 12:17] VITALS: BP 127/73
[2021-09-08] MEDS: ENOXAPARIN 60 MG/0.6 ML (LOVENOX) SYR SC SCH (12:38)
[2021-09-08] MEDS ORDERED: ENLP2.5T PO (14:23)
[2021-09-08] MEDS ORDERED: LEVO88TA2 PO (14:23)
[2021-09-08] MEDS ORDERED: POTA10CA43 PO (14:23)
[2021-09-08] MEDS ORDERED: BUSP15TA60 PO (14:23)
[2021-09-08] MEDS ORDERED: MIRT45TA75 PO (14:23)
[2021-09-08] MEDS ORDERED: CLOP75TA28 PO (14:23)
[2021-09-08] MEDS ORDERED: FURO40TA4 PO (14:23)
[2021-09-08] MEDS ORDERED: TRAM50TA3 PO (14:23)
[2021-09-08] MEDS ORDERED: HYDR50CA3 PO (14:23)
[2021-09-08] MEDS ORDERED: CYAN-41 PO (14:23)
[2021-09-08] MEDS ORDERED: QUET25TA35 PO (14:23)
[2021-09-08] MEDS ORDERED: ACET-2267 PO (14:23)
[2021-09-08] MEDS ORDERED: ASPI-1238 PO (14:23)
[2021-09-08] MEDS ORDERED: CHOL200059 PO (14:23)
[2021-09-08] MEDS ORDERED: CHOL378P PO (14:23)
[2021-09-08 16:00] VITALS: BP 129/75
[2021-09-08] MEDS: PIPERACILLIN SODIUM/TAZOBACTAM 4.5 GM in NS (IVPB) 100 ML IV SCH (18:26)
[2021-09-08] MEDS: RT-ALBUTEROL HFA 8.5 GM INHALER IH SCH (19:49)
[2021-09-08 19:57] VITALS: BP 99/61
[2021-09-08] MEDS: QUEtiapine 25 MG (SEROquel) TAB IMMEDIATE RELEASE PO SCH (20:14)
[2021-09-08] MEDS: ACETAMINOPHEN 325 MG TABLET PO PRN (20:14)
--- NOTE | 2021-09-08 22:17 | History & Physical-Hospitalist ---
History of Present Illness HPI/Chief Complaint Trang Paul is a 76 year old female with PMH HTN, HLD, GERD, hypothyroidism, CAD s/p CABG, who presented with weakness. She also reports fevers. She has been short of breath and also has a cough. She has had headac hes. She denies chest pain. She denies body aches. She denies nausea and vomiting. She has had some diarrhea. Source: patient Exam Limitations: no limitations Date Seen 09/08/21 Time Seen by a Provider: 11:50 Attending Physician Jasivr Hewitt MD PCP Paramjit Grove DO Referring Physician Date of Admission Sep 07, 2021 at 17:43 Home Medications & Allergies Home Medications Reviewed patient Home Medication Reconciliation performed by pharmacy medication reconciliations computer aided design technician and/or nursing. Patients Allergies have been reviewed. Allergies Allergies Coded Allergies codeine (Verified Allergy, Unknown, 05/13/18) nausea/faints olanzapine (Verified Allergy, Unknown, 08/03/08) cefadroxil (Verified Adverse Reaction, Mild, MAKES HER DIZZY AND FAINTS, 05/15/18) faints Past Sjlhdyo-Fbhxip-Izjaww Hx Patient Social History Tobacco Use?: No Smoking Status: Never a Smoker Use of E-Cig and/or Vaping dev: No Substance use?: No Alcohol Use?: No Pt feels they are or have been: No Immunizations Up To Date Date of Influenza Vaccine: May 15, 2018 First/Initial COVID19 Vaccinat: NONE Second COVID19 Vaccination Scooby: NONE Date of Pneumonia Vaccine: Mar 31, 2013 Seasonal Allergies Seasonal Allergies: No Current Status status: No Advance Directives: No Communicates: Verbally Primary Language: Iranian Preferred Spoken Language: Iranian Is interpretation needed?: No Implanted or Applied Medical D: CPAP, Stents Past Medical History Surgeries: Abdominal, Bladder Surgery, CABG, Hysterectomy Sleep Apnea Currently Using CPAP: Yes (SLEEP APNEA) Currently Using BIPAP: No Coronary 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 Disease, High Cholesterol, Hypertension 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 Bladder Infection, Renal Failure, UTI-Chronic Diverticulosis, Irritable Bowel Arthritis, Fibromyalgia Hypothyroidsim Cataract Loss of Vision: Denies Anxiety, Depression Blood Disorders: No Family Medical History Alzheimer's disease (mother) Cardiovascular disease (mother and father) Carotid artery stenosis (father) Hypercholesterolemia (mother and father) Hypertension Myocardial infarction (mother and father) No Pertinent Family Hx Review of Systems Constitutional: fever, weakness EENTM: no symptoms reported Respiratory: cough, short of breath Cardiovascular: no symptoms reported Gastrointestinal: diarrhea Genitourinary: no symptoms reported Musculoskeletal: no symptoms reported Skin: no symptoms reported Psychiatric/Neurological: Headache Physical Exam Physical Exam Vital Signs Vital Signs - First Documented 09/07/21 09/07/21 16:31 17:25 Temp 35.6 Pulse 67 Resp 18 B/P (MAP) 93/53 (66) Pulse Ox 97 O2 Delivery Room Air O2 Flow Rate 2.00 Capillary Refill : Less Than 3 Seconds Height, Weight, BMI Height: 5'3.00" Weight: 150lbs. 0oz. [id number]; 22.64 BMI Method:Estimated General Appearance: No Apparent Distress, WD/WN HEENT: PERRL/EOMI, Pharynx Normal Neck: Normal Inspection, Supple Respiratory: Lungs Clear, No Respiratory Distress Cardiovascular: Regular Rate, Rhythm, No Edema, No Murmur Gastrointestinal: Normal Bowel Sounds, Non Tender, Soft Extremity: Normal Inspection, Non Tender, No Pedal Edema Neurologic/Psychiatric: Alert, Oriented x3, No Motor/Sensory Deficits, Normal Mood/Affect Skin: Normal Color, Warm/Dry Results Results/Procedures Labs Laboratory Tests 09/07/21 16:23 09/08/21 06:30 Patient resulted labs reviewed. Imaging: Reviewed Imaging Report Assessment/Plan Admission Diagnosis Acute respiratory failure due to COVID-19 Admission Status: Inpatient Order (span 2 midnights) Reason for Inpatient Admission: Respiratory failure Assessment and Plan Acute respiratory failure due to COVID-19 Secondary bacterial pneumonia Decadron Supplemental oxygen as needed Lovenox Zosyn NONA IV fluids HTN HLD GERD Hypothyroidism CAD Anxiety Insomnia Continue home meds DVT prophylaxis: Lovenox Diagnosis/Problems Diagnosis/Problems (1) Acute respiratory failure due to COVID-19 Status: Acute (2) Acute kidney injury due to COVID-19 Status: Acute JASVIR HEWITT MD Sep 08, 2021 22:16
[2021-09-08] MEDS ORDERED: GABAPENTIN 600 MG (NEURONTIN) TAB ONE (22:53)
[2021-09-08] MEDS ORDERED: busPIRone 15 MG (BUSPAR) TABLET ONE (22:55)
[2021-09-08] MEDS ORDERED: MIRTAZAPINE 15 MG (REMERON) TAB ONE (22:55)
[2021-09-08 23:35] VITALS: BP 118/70
[2021-09-08] MEDS: busPIRone 15 MG (BUSPAR) TABLET PO SCH (23:36)
[2021-09-08] MEDS: MIRTAZAPINE 15 MG (REMERON) TAB PO SCH (23:36)
[2021-09-08] MEDS: GABAPENTIN 600 MG (NEURONTIN) TAB PO SCH (23:36)
[2021-09-09] MEDS: PIPERACILLIN SODIUM/TAZOBACTAM 4.5 GM in NS (IVPB) 100 ML IV SCH ×3 (03:24→17:13)
[2021-09-09 03:26] VITALS: BP 124/72
[2021-09-09] MEDS: LACTATED RINGERS 1,000 ML IV SCH ×3 (03:26→14:55)
[2021-09-09] MEDS: LEVOTHYROXINE 88 MCG (LEVOTHORID) TAB PO SCH (05:57)
[2021-09-09] MEDS: RT-ALBUTEROL HFA 8.5 GM INHALER IH SCH ×2 (07:42→20:42)
[2021-09-09 08:00] VITALS: BP 108/63
[2021-09-09 08:12] LABS: BASOPHILS % (AUTO) 0 % (0-10); EOSINOPHILS % (AUTO) 0 % (0-10); HEMATOCRIT 33 % (35-52); HEMOGLOBIN 11.4 g/dL (11.5-16.0); LYMPHOCYTES # (AUTO) 0.6 10^3/uL (1.0-4.0); LYMPHOCYTES % (AUTO) 9 % (12-44); MEAN CORPUSCULAR HEMOGLOBIN 31 pg (25-34); MEAN CORPUSCULAR HGB CONC 35 g/dL (32-36); MEAN CORPUSCULAR VOLUME 89 fL (80-99); MONOCYTES # (AUTO) 0.6 10^3/uL (0.0-1.0); MONOCYTES % (AUTO) 9 % (0-12); NEUTROPHILS # (AUTO) 5.1 10^3/uL (1.8-7.8); NEUTROPHILS % (AUTO) 81 % (42-75); PLATELET COUNT 355 10^3/uL (130-400); WHITE BLOOD COUNT 6.3 10^3/uL (4.3-11.0)
[2021-09-09 08:24] LABS: POTASSIUM 3.7 MMOL/L (3.6-5.0)
[2021-09-09 08:25] LABS: CALCIUM 8.9 MG/DL (8.5-10.1)
[2021-09-09 08:29] LABS: CREATININE SERUM 1.5 MG/DL (0.60-1.30)
[2021-09-09] MEDS: CLOPIDOGREL 75 MG (PLAVIX) TABLET PO SCH (09:28)
[2021-09-09] MEDS: DULoxetine 30 MG (CYMBALTA) CAP PO SCH ×2 (09:28→20:40)
[2021-09-09] MEDS: GABAPENTIN 600 MG (NEURONTIN) TAB PO SCH ×2 (09:28→20:40)
[2021-09-09] MEDS: busPIRone 15 MG (BUSPAR) TABLET PO SCH ×3 (09:29→20:40)
[2021-09-09] MEDS: ENALAPRIL 2.5 MG (VASOTEC) TAB PO SCH (09:29)
[2021-09-09] MEDS: QUEtiapine 25 MG (SEROquel) TAB IMMEDIATE RELEASE PO SCH ×2 (09:29→20:40)
[2021-09-09] MEDS: meTOprolol TARTRATE 25 MG (LOPRESSOR) TABLET PO SCH ×2 (09:29→20:39)
[2021-09-09] MEDS: ASPIRIN E.C. 81 MG (ECOTRIN) TAB PO SCH (09:29)
[2021-09-09] MEDS: MICONAZOLE 2% POWDER (DESENEX AF) 90 GM TOP SCH ×2 (09:30→20:41)
[2021-09-09 11:10] VITALS: BP 114/69
[2021-09-09] MEDS: ENOXAPARIN 60 MG/0.6 ML (LOVENOX) SYR SC SCH (12:00)
[2021-09-09 16:46] VITALS: BP 124/77
[2021-09-09] MEDS: ACETAMINOPHEN 325 MG TABLET PO PRN (17:14)
--- NOTE | 2021-09-09 18:49 | Progress Note - Hospitalist ---
Subjective HPI/CC On Admission Date Seen by Provider: Sep 09, 2021 Time Seen by Provider: 10:55 Trang Paul is a 76 year old female with PMH HTN, HLD, GERD, hypothyroidism, CAD s/p CABG, who presented with weakness. She also reports fevers. She has been short of breath and also has a cough. She has had headaches. She denies chest pain. She denies body aches. She denies nausea and vomiting. She has had some diarrhea. Subjective/Events-last exam She is feeling better today. She is not short of breath. She has no complaints. Focused Exam Lactate Level 09/07/21 16:36: Lactic Acid Level 3.13*H 09/07/21 19:03: Lactic Acid Level 1.31 Objective Exam Vital Signs Vital Signs Date Time Temp Pulse Resp B/P (MAP) Pulse Ox O2 Delivery O2 Flow Rate FiO2 09/09/21 16:46 36.8 77 22 124/77 (93) 97 Nasal Cannula 1.00 Capillary Refill : Less Than 3 Seconds General Appearance: No Apparent Distress, WD/WN Respiratory: Lungs Clear, No Respiratory Distress Cardiovascular: Regular Rate, Rhythm, No Murmur Gastrointestinal: Normal Bowel Sounds, Soft Extremity: Normal Inspection, No Pedal Edema Neurologic/Psychiatric: Alert, Oriented x3, Normal Mood/Affect Skin: Normal Color, Warm/Dry Results/Procedures Lab Laboratory Tests 09/09/21 07:58 Patient resulted labs reviewed. Imaging: Reviewed Imaging Report Assessment/Plan Assessment and Plan Assess & Plan/Chief Complaint Acute respiratory failure due to COVID-19 Secondary bacterial pneumonia Urinary tract infection Acute metabolic encephalopathy Stop Decadron, possible steroid induced psychosis Supplemental oxygen as needed, minimal requirement at this time Lovenox Transition to Levaquin NONA IV fluids HTN HLD GERD Hypothyroidism CAD Anxiety Insomnia Continue home meds DVT prophylaxis: Lovenox Diagnosis/Problems Diagnosis/Problems (1) Acute respiratory failure due to COVID-19 Status: Acute (2) PNA (pneumonia) Status: Acute (3) UTI (urinary tract infection) Status: Acute (4) Acute kidney injury due to COVID-19 Status: Acute (5) Acute metabolic encephalopathy Status: Acute JASVIR HEWITT MD Sep 09, 2021 18:49
[2021-09-09 20:35] VITALS: BP 117/72
[2021-09-09] MEDS: MIRTAZAPINE 15 MG (REMERON) TAB PO SCH (20:39)
[2021-09-09] MEDS: PANTOPRAZOLE 20 MG TABLET (PROTONIX) PO SCH (20:39)
[2021-09-09 23:36] VITALS: BP 132/76
[2021-09-10 03:24] VITALS: BP 113/67
[2021-09-10] MEDS: LEVOTHYROXINE 88 MCG (LEVOTHORID) TAB PO SCH (05:37)
[2021-09-10] MEDS: ACETAMINOPHEN 325 MG TABLET PO PRN ×2 (05:37→12:09)
[2021-09-10 05:44] LABS: POTASSIUM 3.7 MMOL/L (3.6-5.0)
[2021-09-10 05:45] LABS: CALCIUM 8.3 MG/DL (8.5-10.1)
[2021-09-10 05:49] LABS: CREATININE SERUM 1.53 MG/DL (0.60-1.30)
[2021-09-10] MEDS: LACTATED RINGERS 1,000 ML IV SCH (05:59)
[2021-09-10 08:00] VITALS: BP 126/69
[2021-09-10] MEDS: RT-ALBUTEROL HFA 8.5 GM INHALER IH SCH ×2 (08:53→21:45)
[2021-09-10] MEDS: GABAPENTIN 600 MG (NEURONTIN) TAB PO SCH ×2 (08:58→21:44)
[2021-09-10] MEDS: ENALAPRIL 2.5 MG (VASOTEC) TAB PO SCH (08:58)
[2021-09-10] MEDS: DULoxetine 30 MG (CYMBALTA) CAP PO SCH ×2 (08:58→21:44)
[2021-09-10] MEDS: meTOprolol TARTRATE 25 MG (LOPRESSOR) TABLET PO SCH ×2 (08:58→21:44)
[2021-09-10] MEDS: CLOPIDOGREL 75 MG (PLAVIX) TABLET PO SCH (08:58)
[2021-09-10] MEDS: busPIRone 15 MG (BUSPAR) TABLET PO SCH ×3 (08:58→21:44)
[2021-09-10] MEDS: QUEtiapine 25 MG (SEROquel) TAB IMMEDIATE RELEASE PO SCH ×2 (08:58→21:44)
[2021-09-10] MEDS: ASPIRIN E.C. 81 MG (ECOTRIN) TAB PO SCH (08:58)
[2021-09-10] MEDS: MICONAZOLE 2% POWDER (DESENEX AF) 90 GM TOP SCH ×2 (08:59→21:45)
[2021-09-10 12:00] VITALS: BP 126/69
[2021-09-10] MEDS: ENOXAPARIN 60 MG/0.6 ML (LOVENOX) SYR SC SCH (12:08)
--- NOTE | 2021-09-10 12:37 | Progress Note - Hospitalist ---
Subjective HPI/CC On Admission Date Seen by Provider: Sep 10, 2021 Time Seen by Provider: 12:20 Trang Paul is a 76 year old female with PMH HTN, HLD, GERD, hypothyroidism, CAD s/p CABG, who presented with weakness. She also reports fevers. She has been short of breath and also has a cough. She has had headaches. She denies chest pain. She denies body aches. She denies nausea and vomiting. She has had some diarrhea. Subjective/Events-last exam She is feeling better. She says she is getting bored. She wants to take a shower. She has not been able to get up and walk by herself. She is not short of breath. Focused Exam Lactate Level 09/07/21 16:36: Lactic Acid Level 3.13*H 09/07/21 19:03: Lactic Acid Level 1.31 Objective Exam Vital Signs Vital Signs Date Time Temp Pulse Resp B/P (MAP) Pulse Ox O2 Delivery O2 Flow Rate FiO2 09/10/21 08:54 98 Nasal Cannula 2.00 09/10/21 08:00 36.7 113 20 126/69 (88) Capillary Refill : Less Than 3 Seconds General Appearance: No Apparent Distress, WD/WN Respiratory: Lungs Clear, No Respiratory Distress Cardiovascular: Regular Rate, Rhythm, No Murmur Gastrointestinal: Normal Bowel Sounds, Soft Extremity: Normal Inspection, No Pedal Edema Neurologic/Psychiatric: Alert, Normal Mood/Affect Skin: Normal Color, Warm/Dry Results/Procedures Lab Laboratory Tests 09/10/21 05:15 Patient resulted labs reviewed. Imaging: Reviewed Imaging Report Assessment/Plan Assessment and Plan Assess & Plan/Chief Complaint Acute respiratory failure due to COVID-19 Secondary bacterial pneumonia Urinary tract infection Not requiring supplemental oxygen Continue Levaquin CKD 3b HTN HLD GERD Hypothyroidism CAD Anxiety Insomnia Continue home meds DVT prophylaxis: Lovenox Acute metabolic encephalopathy, resolved NONA, resolved Diagnosis/Problems Diagnosis/Problems (1) Acute respiratory failure due to COVID-19 Status: Acute (2) PNA (pneumonia) Status: Acute (3) UTI (urinary tract infection) Status: Acute (4) Acute kidney injury due to COVID-19 Status: Resolved Resolution Date/Time: 09/10/21 @ 12:36 (5) Acute metabolic encephalopathy Status: Resolved Resolution Date/Time: 09/10/21 @ 12:36 (6) Stage 3b chronic kidney disease Status: Chronic (7) Debility Status: Acute JASVIR HEWITT MD Sep 10, 2021 12:37
[2021-09-10 16:52] VITALS: BP 135/83
[2021-09-10 20:58] VITALS: BP 149/88
[2021-09-10] MEDS: MIRTAZAPINE 15 MG (REMERON) TAB PO SCH (21:44)
[2021-09-10] MEDS: PANTOPRAZOLE 20 MG TABLET (PROTONIX) PO SCH (21:44)
[2021-09-10 23:41] VITALS: BP_SYST 122; BP_SYST 126; BP_DIAS 69; BP_DIAS 76
[2021-09-11 00:27] VITALS: BP 127/72
[2021-09-11 03:43] VITALS: BP 133/63
[2021-09-11] MEDS: LEVOTHYROXINE 88 MCG (LEVOTHORID) TAB PO SCH (06:58)
[2021-09-11] MEDS: RT-ALBUTEROL HFA 8.5 GM INHALER IH SCH (07:12)
[2021-09-11 07:30] VITALS: BP 128/71
[2021-09-11] MEDS: MICONAZOLE 2% POWDER (DESENEX AF) 90 GM TOP SCH (09:00)
[2021-09-11] MEDS: meTOprolol TARTRATE 25 MG (LOPRESSOR) TABLET PO SCH (10:07)
[2021-09-11] MEDS: busPIRone 15 MG (BUSPAR) TABLET PO SCH ×2 (10:07→13:05)
[2021-09-11] MEDS: GABAPENTIN 600 MG (NEURONTIN) TAB PO SCH (10:07)
[2021-09-11] MEDS: CLOPIDOGREL 75 MG (PLAVIX) TABLET PO SCH (10:07)
[2021-09-11] MEDS: DULoxetine 30 MG (CYMBALTA) CAP PO SCH (10:08)
[2021-09-11] MEDS: QUEtiapine 25 MG (SEROquel) TAB IMMEDIATE RELEASE PO SCH (10:08)
[2021-09-11] MEDS: ENALAPRIL 2.5 MG (VASOTEC) TAB PO SCH (10:08)
[2021-09-11] MEDS: ASPIRIN E.C. 81 MG (ECOTRIN) TAB PO SCH (10:08)
--- NOTE | 2021-09-11 10:20 | Physical Therapy Evaluation ---
PT Evaluation-General Medical Diagnosis Admission Date Sep 07, 2021 at 17:43 Medical Diagnosis: Weakness, Fever, Shortness of breath, cough Onset Date: Sep 08, 2021 Therapy Diagnosis Therapy Diagnosis: Gait deficit, strength deficit Height/Weight Height (Feet): 5 Height (Inches): 3.00 Weight (Pounds): 150 Weight (Ounces): 0 Precautions Precautions/Isolations: Airborne Isolation, Fall Prevention Referral Physician: Dr. Holt Reason for Referral: Evaluation/Treatment Medical History Pertinent Medical History: CABG, CAD, Diverticulitis, HTN, Hypothroidism Social History Home: Single Level Current Living Status: Spouse Entry Into Home: Stairs With Railing PT Steps Into Home: 3 Prior Prior Level of Function SCALE: Activities may be completed with or without assistive devices. 9-Nywhnrjvbi-pauurzq completes the activity by him/herself with no assistance from a helper. 5-Set-up or Clean-up Assistance-helper sets up or cleans up; patient completes activity. [place] assists only prior to or following the activity. 4-Supervision or Touching Assistance-helper provides verbal cues and/or touching/steadying and/or contact guard assistance as patient completes a ctivity. Assistance may be provided throughout the activity or intermittently. 3-Partial/Moderate Assistance-helper does LESS THAN HALF the effort. [place] lifts, holds or supports trunk or limbs, but provides less than half the effort. 2-Substantial/Maximal Assistance-helper does MORE THAN HALF the effort. [place] lifts or holds trunk or limbs and provides more than half the effort. 2-Vtviukddd-rrlmvs does ALL the effort. Patient does none of the effort to complete the activity. Or, the assistance of 2 or more helpers is required for the patient to complete the activity. If activity was not attempted, code reason: 7-Patient Refused. 9-Not Applicable-not attempted and the patient did not perform the activity before the current illness, exacerbation or injury. 10-Not Attempted due to Environmental Limitations-(lack of equipment, weather restraints, etc.). 88-Not Attempted due to Medical Conditions or Safety Concerns. Bed Mobility: 6 Transfers (B,C,W/C): 6 Gait: 6 Stairs: 6 Indoor Mobility (Ambulation): Independent Stairs: Independent PT Evaluation-Current Subjective Patient lying supine in bed upon PT arrival, agreeable to treatment. Reports her low back hurts and rates that pain at 7/10 currently. Objective Patient Orientation: Person, Place, Time, Situation Attachments: Fernando Catheter ROM/Strength ROM Lower Extremities WFLs bilaterally Strength Lower Extremities 4/5 bilaterally all planes Sensory Sensation Right Lower Extremit: Intact Sensation Left Lower Extremity: Intact Transfers Roll Left to Right (QC): 4 Sit to Lying (QC): 4 Lying to Sitting/Side of Bed(Q: 4 Sit to Stand (QC): 4 Chair/Csk-xa-Eczfw Xfer(QC): 4 Gait Does the Patient Walk?: Yes Mode of Locomotion: Walk Anticipated Mode of Locomotion: Walk Walk 10 feet (QC): 4 Distance: 30 Gait Assistive Device: FWW Balance Sitting Static: Good Sitting Dynamic: Good Standing Static: Fair Standing Dynamic: Fair Assessment/Needs Patient tolerated treatment fair, but reports fatigue almost immediately upon sitting up from bed. Patient performs all observed bed mobility and transfers with SBA. Patient ambulates 30 feet with FWW, with CGA and verbal cues for safety, progression, balance and posture. Patient in chair post treatment with all needs met, nursing notified, call light in reach. Patient is currently on COVID precautions. Rehab Potential: Good PT Longterm Goals Longterm Goals PT Cipher Expert Goals Time Frame: Sep 29, 2021 Roll Left & Right (QC): 6 Sit to Lying (QC): 6 Lying-Sitting on Side/Bed(QC): 6 Sit to Stand (QC): 6 Chair/Kcu-vj-Ouxhy Xfer(QC): 6 Toilet Transfer (QC): 6 Does the Patient Walk: Yes Walk 10 feet (QC): 5 Walk 50ft with 2 Turns (QC): 5 Walk 150 ft (QC): 5 1 Step (curb) (QC): 4 4 Steps (QC): 4 12 Steps (QC): 4 PT Plan Problem List Problem List: Activity Tolerance, Functional Strength, Safety, Balance, Gait, Transfer, Bed Mobility, ROM Treatment/Plan Treatment Plan: Continue Plan of Care Treatment Plan: Bed Mobility, Education, Functional Activity Katiana, Functional Strength, Group Therapy, Gait, Safety, Therapeutic Exercise, Transfers Treatment Duration: Oct 14, 2021 Frequency: 6 times per week Estimated Hrs Per Day: .25 hour per day Patient and/or Family Agrees t: Yes Safety Risks/Education Patient Education: Gait Training Teaching Recipient: Patient Teaching Methods: Demonstration, Discussion Response to Teaching: Verbalize Understanding, Return Demonstration Time/GCodes Time In: 928 Time Out: 958 Total Billed Treatment Time: 30 Total Billed Treatment Visit, EMERITA Valentine PT Sep 11, 2021 10:20
[2021-09-11 12:50] VITALS: BP 121/73
[2021-09-11] MEDS ORDERED: LEVO750T39 PO (13:01)
[2021-09-11] MEDS: ENOXAPARIN 60 MG/0.6 ML (LOVENOX) SYR SC SCH (13:06)
--- NOTE | 2021-09-11 13:11 | Discharge Summary ---
Discharge Summary Hospital Course Problems/Dx: (1) Acute respiratory failure due to COVID-19 Status: Acute (2) PNA (pneumonia) Status: Acute (3) UTI (urinary tract infection) Status: Acute (4) Acute kidney injury due to COVID-19 Status: Resolved (5) Acute metabolic encephalopathy Status: Resolved (6) Stage 3b chronic kidney disease Status: Chronic (7) Debility Status: Acute Hospital Course Date of Admission: Sep 07, 2021 at 17:43 Admission Diagnosis : Acute respiratory failure due to COVID-19 Family Physician/Provider: Paramjit Grove DO Date of Discharge: 09/11/21 Discharge Diagnosis: Acute respiratory failure due to COVID-19 Hospital Course: Trang Paul is a 76 year old who was admitted with acute respiratory failure due to COVID-19. She was treated with Decadron. She required a small amount of supplemental oxygen initially but this quickly resolved. She also had a secondary bacterial pneumonia and was given Levaquin. She also had a UTI which was also treated with the Levaquin. She had an acute kidney injury superimposed on chronic kidney disease stage 3b which improved with fluids. She was a bit debilitated but refused home health care on discharge. She was discharged home in improved, stable condition. Labs and Pending Lab Test: Microbiology 09/07/21 Blood Culture - Preliminary, Resulted No growth 09/07/21 Urine Culture - Final, Complete Enterobacter cloacae complex Home Meds Active Reported Aspirin EC (Aspirin) 81 Mg Tablet.dr 81 Mg PO DAILY Vitamin B-12 (Cyanocobalamin (Vitamin B-12)) 1,000 Mcg Tablet 1,000 Mcg PO DAILY Tylenol Extra Strength (Acetaminophen) 500 Mg Tablet 1,000 Mg PO Q8H PRN Vitamin D3 (Cholecalciferol (Vitamin D3)) 50 Mcg Tablet 50 Mcg PO DAILY Hydroxyzine Pamoate 50 Mg Capsule 50 Mg PO BID PRN Potassium Chloride 10 Meq Capsule.er 10 Meq PO DAILY Enalapril Maleate 2.5 Mg Tablet 2.5 Mg PO DAILY Buspirone HCl 15 Mg Tablet 15 Mg PO TID Clopidogrel (Clopidogrel Bisulfate) 75 Mg Tablet 75 Mg PO DAILY Furosemide 40 Mg Tablet 40 Mg PO DAILY Tramadol HCl 50 Mg Tablet 50 Mg PO Q6H PRN Cholestyramine Powder (Cholestyramine (with Sugar)) 378 Gm Powder 9 Gm PO BID DISSOLVE IN WATER Synthroid (Levothyroxine Sodium) 88 Mcg Tablet 88 Mcg PO DAILY Mirtazapine 45 Mg Tablet 45 Mg PO HS Quetiapine Fumarate 25 Mg Tablet 25 Mg PO BID Duloxetine HCl 60 Mg Capsule.dr 60 Mg PO BID [place]-3 Acid Ethyl Esters 1 Gm Capsule 2 Gm PO BID TAKES 2 (1GM) CAPSULES Gabapentin 600 Mg Tablet 600 Mg PO BID Omeprazole 20 Mg Capsule.dr 20 Mg PO HS Metoprolol Tartrate 25 Mg Tablet 25 Mg PO BID Atorvastatin Calcium 80 Mg Tablet 80 Mg PO HS Assessment/Pt Instructions Take medications as prescribed. Complete your course of antibiotics even if you are feeling better. Follow up with your primary care physician. Return with worsening shortness of breath, chest pain, or if you feel like you are getting worse. Discharge Planning: <30 minutes discharge planning Discharge Instructions Discharge Diet: No Restrictions Activity as Tolerated: Yes Discharge Physical Examination Vital Signs Vital Signs Date Time Temp Pulse Resp B/P (MAP) Pulse Ox O2 Delivery O2 Flow Rate FiO2 09/11/21 09:00 Room Air 09/11/21 07:30 36.6 83 16 128/71 (90) 95 09/10/21 23:41 21 09/10/21 16:52 1.00 General Appearance: No Apparent Distress, Thin Respiratory: Lungs Clear, No Respiratory Distress Cardiovascular: Regular Rate, Rhythm, No Murmur Gastrointestinal: Normal Bowel Sounds, Soft Extremity: Normal Inspection, Pedal Edema Skin: Normal Color, Warm/Dry Neurologic/Psychiatric: Alert, Oriented x3, Normal Mood/Affect Allergies: Coded Allergies: codeine (Verified Allergy, Unknown, 05/13/18) nausea/faints olanzapine (Verified Allergy, Unknown, 08/03/08) cefadroxil (Verified Adverse Reaction, Mild, MAKES HER DIZZY AND FAINTS, 05/15/18) faints Copy Copies To 1: PARAMJIT GROVE DO Discharge Summary Date of Admission Sep 07, 2021 at 17:43 Date of Discharge Discharge Date: Sep 11, 2021 Discharge Time: 13:10 Admission Diagnosis Acute respiratory failure due to COVID-19 Discharge Diagnosis Acute respiratory failure due to COVID-19 Secondary bacterial pneumonia Urinary tract infection NONA on CKD 3b (1) Acute respiratory failure due to COVID-19 Status: Acute (2) PNA (pneumonia) Status: Acute (3) UTI (urinary tract infection) Status: Acute (4) Acute kidney injury due to COVID-19 Status: Resolved (5) Acute metabolic encephalopathy Status: Resolved (6) Stage 3b chronic kidney disease Status: Chronic (7) Debility Status: Acute (8) Acute kidney injury superimposed on chronic kidney disease Status: Resolved JASVIR HEWITT MD Sep 11, 2021 13:09
--- NOTE | 2021-09-11 14:34 | Occupational Therapy Eval ---
OT Evaluation-General/PLF Medical Diagnosis Admission Date Sep 07, 2021 at 17:43 Medical Diagnosis: Weakness, Fever, Shortness of breath, cough Onset Date: Sep 08, 2021 Therapy Diagnosis Therapy Diagnosis: Reduced endurance Height/Weight Height (Feet): 5 Height (Inches): 3.00 Weight (Pounds): 150 Weight (Ounces): 0 Precautions Precautions/Isolations: Contact Isolation, Droplet Isolation, Fall Prevention, Standard Precautions Referral Physician: Dr. Holt Referral Reason: Evaluation/Treatment Medical History Pertinent Medical History: CABG, CAD, Diverticulitis, HTN, Hypothroidism Current History Pt presented to ER with weakness, fever, SOB, and cough. She was found to be in acute resp failure secondary to covid 19. Pt reports that she lives at home with her spouse. She was indep with adls and iadls. She uses a walker at baseline. Reviewed History: Yes Social History Home: Single Level Current Living Status: Spouse Entry Into Home: Stairs With Railing Steps Into Home: 3 ADL-Prior Level of Function SCALE: Activities may be completed with or without assistive devices. 7-Npuifnvdll-rgjbdsz completes the activity by him/herself with no assistance from a helper. 5-Set-up or Clean-up Assistance-helper sets up or cleans up; patient completes activity. [place] assists only prior to or following the activity. 4-Supervision or Touching Assistance-helper provides verbal cues and/or touching/steadying and/or contact guard assistance as patient completes activity. Assistance may be provided throughout the activity or intermittently. 3-Partial/Moderate Assistance-helper does LESS THAN HALF the effort. [place] lifts, holds or supports trunk or limbs, but provides less than half the effort. 2-Substantial/Maximal Assistance-helper does MORE THAN HALF the effort. [place] lifts or holds trunk or limbs and provides more than half the effort. 5-Dahczmacn-qtdrwz does ALL the effort. Patient does none of the effort to complete the activity. Or, the assistance of 2 or more helpers is required for the patient to complete the activity. If activity was not attempted, code reason: 7-Patient Refused. 9-Not Applicable-not attempted and the patient did not perform the activity before the current illness, exacerbation or injury. 10-Not Attempted due to Environmental Limitations-(lack of equipment, weather restraints, etc.). 88-Not Attempted due to Medical Conditions or Safety Concerns. Self Care: Independent Functional Cognition: Unknown DME/Equipment: Bath Chair, Grab Bars, Tub/Shower OT Current Status Subjective Pt denies pain, reports possibility of d/c later today. Appearance Pt left sitting in recliner, all needs within reach, RN notified. Mental Status/Objective Attachments: IV Current Upper Extremity ROM WNL, R hand with severe swelling and bruising. Pt reports secondary to popped blood vessel from IV. ADL-Treatment Lower Body Dressing (QC): 4 On/Off Footwear (QC): 4 Toileting Hygiene (QC): 4 Sit<>stand: SBA. Pt ambulated to/from bathroom with SBA-CGA and use of walker. Very slow gait. Able to lower to toilet and perform lyudmila care in sitting with supervision. Very slow processing speed, extra time to respond or initiate tasks. Slight SOB notable post minimal activity. Education OT Patient Education: Energy conservation, Purpose of tx/functional activities, Safety issues Teaching Recipient: Patient Teaching Methods: Discussion Response to Teaching: Verbalize Understanding, Return Demonstration OT Bank President Goals [facility] Goals Time Frame: Sep 15, 2021 Oral Hygiene (QC): 5 Toileting Hygiene (QC): 6 Upper Body Dressing (QC): 5 Lower Body Dressing (QC): 5 On/Off Footwear (QC): 5 1=Demonstrate adherence to instructed precautions during ADL tasks. 2=Patient will verbalize/demonstrate understanding of assistive devices/modifications for ADL. 3=Patient will improve strength/tolerance for activity to enable patient to perform ADL's. OT Education/Plan Problem List/Assessment Assessment: Decreased Activ Tolerance, Decreased UE Strength, Impaired I ADL's, Impaired Self-Care Skills (secondary to poor endurance) Discharge Recommendations Plan/Recommendations: Continue POC Therapy Discharge Recommendati: Homemaker Support, Home & Family Treatment Plan/Plan of Care Treatment,Training & Education: Yes Patient would benefit from OT for education, treatment and training to promote independence in ADL's, mobility, safety and/or upper extremity function for ADL's. Plan of Care: ADL Retraining, Functional Mobility, UE Funct Exercise/Act Treatment Duration: Sep 15, 2021 Frequency: 3 times per week (3-5x/week) Estimated Hrs Per Day: .25 hour per day Rehab Potential: Good Time/GCodes Start Time: 13:58 Stop Time: 14:08 Total Time Billed (hr/min): 10 Billed Treatment Time 1 visit Silvia Crow OT Sep 11, 2021 14:34
[2021-09-11 15:50] VITALS: BP 121/73
== END 2021-09-11 15:50 | disposition home or self-care (01) | DRG 177 ==
LOC: EDUNIT# 16:17 → ER 16:19 → 4TH 17:43
PROVIDERS: ADMIT Internal Medicine; ATTEND Internal Medicine
PROC: 8E0ZXY6 Isolation (ICD-10-PCS; principal; 2021-09-07)
DX: U07.1 COVID-19 (principal); J96.01 Acute respiratory failure with hypoxia; J12.82 Pneumonia due to coronavirus disease 2019; G93.41 Metabolic encephalopathy; J15.9 Unspecified bacterial pneumonia; N39.0 Urinary tract infection, site not specified; F05 Delirium due to known physiological condition; I12.9 Hypertensive chronic kidney disease with stage 1 through stage 4 chronic kidney disease, or unspecified chronic kidney disease; N18.32 Chronic kidney disease, stage 3b; B96.89 Other specified bacterial agents as the cause of diseases classified elsewhere; E78.5 Hyperlipidemia, unspecified; K21.9 Gastro-esophageal reflux disease without esophagitis; E03.9 Hypothyroidism, unspecified; I25.10 Atherosclerotic heart disease of native coronary artery without angina pectoris; H25.9 Unspecified age-related cataract; E86.0 Dehydration; F32.A Depression, unspecified; G47.00 Insomnia, unspecified; F41.9 Anxiety disorder, unspecified; Z95.1 Presence of aortocoronary bypass graft; Z79.890 Hormone replacement therapy; Z79.82 Long term (current) use of aspirin; Z79.899 Other long term (current) drug therapy; Z79.02 Long term (current) use of antithrombotics/antiplatelets
CPT/HCPCS: 36415; 51701; 70450; 71045; 72125; 80048; 80053; 81000; 82805; 82947; 83605; 84145; 85007; 85025; 85027; 85610; 85730; 86141; 87040; 87077; 87088; 87186; 87636; 93005; 94640; 94664; 94760

== ENCOUNTER 2021-09-25 11:33 | Emergency (ER) | payer MEDICARE, OTHER ==
[~2021-09-25] VITALS: Ht 162.6 cm; Wt 50.3 kg
[~2021-09-25 11:33] MED LIST changes: +ACET-2267 PO; +BUSP15TA60 PO; +CHOL200059 PO; +CHOL378P PO; +CLOP75TA28 PO; +CYAN-41 PO; +ENLP2.5T PO; +HYDR50CA3 PO; +LEVO750T39 PO; +LEVO88TA2 PO; +MIRT45TA75 PO; +QUET25TA35 PO; +TRAM50TA3 PO
--- NOTE | 2021-09-25 11:44 | ED General ---
General Stated Complaint: ANXIETY Source of Information: Patient, EMS, Family Exam Limitations: No Limitations (ANKITA STOVALL APRN) History of Present Illness Date Seen by Provider: Sep 25, 2021 Time Seen by Provider: 11:42 Initial Comments To ER by EMS from home with reports of anxiety for 3 days. This morning she was very hesitant to take her daily medications. She lives at home with her . She takes anxiety medication has not missed any doses. She was recent ly in the hospital for Covid but denies any shortness of breath or pain anywhere. Timing/Duration: 2-3 Days Severity: Moderate (ANKITA STOVALL APRN) Allergies and Home Medications Allergies Coded Allergies: codeine (Verified Allergy, Unknown, 05/13/18) nausea/faints olanzapine (Verified Allergy, Unknown, 08/03/08) cefadroxil (Verified Adverse Reaction, Mild, MAKES HER DIZZY AND FAINTS, 05/15/18) faints Patient Home Medication List Home Medication List Reviewed: Yes (ANKITA STOVALL APRN) Acetaminophen (Tylenol Extra Strength) 500 Mg Tablet, 1,000 MG PO Q8H PRN for PAIN-MILD (1-4), (Reported) Entered as Reported by: AUTUMN SIMMONS on 09/08/21 142 Aspirin (Aspirin EC) 81 Mg Tablet.dr, 81 MG PO DAILY, (Reported) Entered as Reported by: AUTUMN SIMMONS on 09/08/21 142 Atorvastatin Calcium (Atorvastatin Calcium) 80 Mg Tablet, 80 MG PO HS, (Reported) Entered as Reported by: JOSE ANGEL ANTONY on 05/14/18 0905 Buspirone HCl (Buspirone HCl) 15 Mg Tablet, 15 MG PO TID, (Reported) Entered as Reported by: AUTUMN SIMMONS on 09/08/21 142 Cholecalciferol (Vitamin D3) (Vitamin D3) 50 Mcg Tablet, 50 MCG PO DAILY, (Reported) Entered as Reported by: AUTUMN SIMMONS on 09/08/21 142 Cholestyramine (with Sugar) (Cholestyramine Powder) 378 Gm Powder, 9 GM PO BID, (Reported) Entered as Reported by: AUTUMN SIMMONS on 09/08/21 142 Clopidogrel Bisulfate (Clopidogrel) 75 Mg Tablet, 75 MG PO DAILY, (Reported) Entered as Reported by: AUTUMN SIMMONS on 09/08/21 142 Cyanocobalamin (Vitamin B-12) (Vitamin B-12) 1,000 Mcg Tablet, 1,000 MCG PO DAILY, (Reported) Entered as Reported by: AUTUMN SIMMONS on 09/08/21 142 Duloxetine HCl (Duloxetine HCl) 60 Mg Capsule.dr, 60 MG PO BID, (Reported) Entered as Reported by: JOSE ANGEL ANTONY on 05/14/18 09 Enalapril Maleate (Enalapril Maleate) 2.5 Mg Tablet, 2.5 MG PO DAILY, (Reported) Entered as Reported by: AUTUMN SIMMONS on 09/08/21 142 Furosemide (Furosemide) 40 Mg Tablet, 40 MG PO DAILY, (Reported) Entered as Reported by: AUTUMN SIMMONS on 09/08/21 142 Gabapentin (Gabapentin) 600 Mg Tablet, 600 MG PO BID, (Reported) Entered as Reported by: JOSE ANGEL ANTONY on 05/14/18904 Hydroxyzine Pamoate (Hydroxyzine Pamoate) 50 Mg Capsule, 50 MG PO BID PRN for ANXIETY, (Reported) Entered as Reported by: AUTUMN SIMMONS on 09/08/21 142 Levofloxacin (Levofloxacin) 750 Mg Tablet, 750 MG PO Q48H Prescribed by: JASVIR HEWITT on 09/11/21 1301 Levothyroxine Sodium (Synthroid) 88 Mcg Tablet, 88 MCG PO DAILY, (Reported) Entered as Reported by: AUTUMN SIMMONS on 09/08/21 142 Lorazepam (Ativan) 0.5 Mg Tablet, 0.5 MG PO BID PRN for ANXIETY Prescribed by: ANKITA STOVALL on 09/25/21 1314 Metoprolol Tartrate (Metoprolol Tartrate) 25 Mg Tablet, 25 MG PO BID, (Reported) Entered as Reported by: JOSE ANGEL ANTONY on 05/14/18 09 Mirtazapine (Mirtazapine) 45 Mg Tablet, 45 MG PO HS, (Reported) Entered as Reported by: AUTUMN SIMMONS on 09/08/21 142 Antonito-3 Acid Ethyl Esters (Antonito-3 Acid Ethyl Esters) 1 Gm Capsule, 2 GM PO BID, (Reported) Entered as Reported by: JOSE ANGEL ANTONY on 05/14/18 09 Omeprazole (Omeprazole) 20 Mg Capsule.dr, 20 MG PO HS, (Reported) Entered as Reported by: JOSE ANGEL ANTONY on 05/14/18 0905 Potassium Chloride (Potassium Chloride) 10 Meq Capsule.er, 10 MEQ PO DAILY, (Reported) Entered as Reported by: AUTUMN SIMMONS on 09/08/21 142 Quetiapine Fumarate (Quetiapine Fumarate) 25 Mg Tablet, 25 MG PO BID, (Reported) Entered as Reported by: AUTUMN SIMMONS on 09/08/21 142 Tramadol HCl (Tramadol HCl) 50 Mg Tablet, 50 MG PO Q6H PRN for PAIN-MODERATE (5- 7), (Reported) Entered as Reported by: AUTUMN SIMMONS on 09/08/21 142 Review of Systems Review of Systems Constitutional: see HPI EENTM: see HPI Respiratory: no symptoms reported Cardiovascular: no symptoms reported Genitourinary: no symptoms reported Musculoskeletal: no symptoms reported Skin: no symptoms reported Psychiatric/Neurological: See HPI, Anxiety Hematologic/Lymphatic: No Symptoms Reported (ANKITA STOVALL APRN) Past Lahugjz-Hdwrle-Slnzqo Hx Immunizations Up To Date First/Initial COVID19 Vaccinat: NONE Second COVID19 Vaccination Scooby: NONE Third COVID19 Vaccination Date: NONE (ANKITA STOVALL APRN) Seasonal Allergies Seasonal Allergies: No (ANKITA STOVALL APRN) Past Medical History Surgeries: Yes (Hiatal Hernia, Breast BX, Bladder surgery x 3 (had mesh sling, tie up, ) Abdominal, Bladder Surgery, CABG, Hysterectomy Respiratory: Yes Sleep Apnea Currently Using CPAP: Yes (SLEEP APNEA) Currently Using BIPAP: No Cardiac: Yes Coronary Artery Disease, High Cholesterol, Hypertension Neurological: No 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 Disorders: No 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 History: Hysterectomy Genitourinary: Yes Bladder Infection, Renal Failure, UTI-Chronic Gastrointestinal: Yes Diverticulosis, Irritable Bowel Musculoskeletal: Yes Arthritis, Fibromyalgia Endocrine: Yes Hypothyroidsim HEENT: Yes Cataract Loss of Vision: Denies Cancer: No Psychosocial: Yes Anxiety, Depression Integumentary: No Blood Disorders: No (ANKITA STOVALL APRN) Family Medical History Alzheimer's disease (mother) Cardiovascular disease (mother and father) Carotid artery stenosis (father) Hypercholesterolemia (mother and father) Hypertension Myocardial infarction (mother and father) No Pertinent Family Hx (ANKITA STOVALL APRN) Physical Exam Vital Signs Vital Signs - First Documented 09/25/21 11:33 Temp 36.8 Pulse 87 Resp 22 B/P (MAP) 127/68 (87) Pulse Ox 99 O2 Delivery Room Air (BRIANNE OLMSTEAD MD) Vital Signs Capillary Refill : (ANKITA STOVALL APRN) Height, Weight, BMI Height: 5'3.00" Weight: 150lbs. 0oz. [id number]; 22.64 BMI Method:Estimated General Appearance: No Apparent Distress, WD/WN, Anxious (Keeps her eyes closed, breathing heavily. Oxygen saturation 100% room air heart rate 82 blood pressure 127/83. Lungs are clear. Answers most questions with "I dont know") Eyes: Bilateral Eye Normal Inspection, Bilateral Eye PERRL, Bilateral Eye EOMI Neck: Full Range of Motion, Normal Inspection Respiratory: Normal Breath Sounds, No Accessory Muscle Use, No Respiratory Dis tress Cardiovascular: Regular Rate, Rhythm, Normal Peripheral Pulses Gastrointestinal: Non Tender, Soft Extremity: Normal Capillary Refill, Normal Inspection Neurologic/Psychiatric: Alert, Other (Breathing fast very anxious) Skin: Normal Color, Warm/Dry (ANKITA STOVALL APRN) Procedures/Interventions Suture Size: 5-0 (ANKITA STOVALL APRN) Progress/Results/Core Measures Suspected Sepsis SIRS Temperature: Pulse: Respiratory Rate: Laboratory Tests 09/25/21 11:39: White Blood Count 6.0 Blood Pressure / Mean: Laboratory Tests 09/25/21 11:39: Creatinine 1.35H, INR Comment 1.0, Platelet Count 305, Total Bilirubin 1.1H (ANKITA STOVALL APRN) Results/Orders Lab Results Laboratory Tests Test 09/25/21 11:39 09/25/21 12:35 Range/Units White Blood Count 6.0 4.3-11.0 10^3/uL Red Blood Count 3.43 L 3.80-5.11 10^6/uL Hemoglobin 10.8 L 11.5-16.0 g/dL Hematocrit 32 L 35-52 % Mean Corpuscular Volume 93 80-99 fL Mean Corpuscular Hemoglobin 32 25-34 pg Mean Corpuscular Hemoglobin Concent 34 32-36 g/dL Red Cell Distribution Width 14.5 10.0-14.5 % Platelet Count 305 130-400 10^3/uL Mean Platelet Volume 10.2 9.0-12.2 fL Immature Granulocyte % (Auto) 0 % Neutrophils (%) (Auto) 76 H 42-75 % Lymphocytes (%) (Auto) 14 12-44 % Monocytes (%) (Auto) 9 0-12 % Eosinophils (%) (Auto) 0 0-10 % Basophils (%) (Auto) 1 0-10 % Neutrophils # (Auto) 4.6 1.8-7.8 10^3/uL Lymphocytes # (Auto) 0.8 L 1.0-4.0 10^3/uL Monocytes # (Auto) 0.6 0.0-1.0 10^3/uL Eosinophils # (Auto) 0.0 0.0-0.3 10^3/uL Basophils # (Auto) 0.0 0.0-0.1 10^3/uL Immature Granulocyte # (Auto) 0.0 0.0-0.1 10^3/uL Prothrombin Time 13.8 12.2-14.7 SEC INR Comment 1.0 0.8-1.4 Sodium Level 134 L 135-145 MMOL/L Potassium Level 4.2 3.6-5.0 MMOL/L Chloride Level 103 98-107 MMOL/L Carbon Dioxide Level 17 L 21-32 MMOL/L Anion Gap 14 5-14 MMOL/L Blood Urea Nitrogen 13 7-18 MG/DL Creatinine 1.35 H 0.60-1.30 MG/DL Estimat Glomerular Filtration Rate 40 BUN/Creatinine Ratio 10 Glucose Level 88 70-105 MG/DL Calcium Level 9.6 8.5-10.1 MG/DL Corrected Calcium 10.2 H 8.5-10.1 MG/DL Total Bilirubin 1.1 H 0.1-1.0 MG/DL Aspartate Amino Transf (AST/SGOT) 26 5-34 U/L Alanine Aminotransferase (ALT/SGPT) 12 0-55 U/L Alkaline Phosphatase 59 40-136 U/L B-Type Natriuretic Peptide 440.9 H <100.0 PG/ML Total Protein 6.2 L 6.4-8.2 GM/DL Albumin 3.2 3.2-4.5 GM/DL Urine Color YELLOW Urine Clarity CLEAR Urine pH 8.0 5-9 Urine Specific [place] 1.010 L 1.016-1.022 Urine Protein NEGATIVE NEGATIVE Urine Glucose (UA) NEGATIVE NEGATIVE Urine Ketones 1+ H NEGATIVE Urine Nitrite NEGATIVE NEGATIVE Urine Bilirubin NEGATIVE NEGATIVE Urine Urobilinogen 0.2 < = 1.0 MG/DL Urine Leukocyte Esterase TRACE H NEGATIVE Urine RBC (Auto) NEGATIVE NEGATIVE Urine RBC NONE /HPF Urine WBC 0-2 /HPF Urine Squamous Epithelial Cells NONE /HPF Urine Renal Epithelial Cells NONE /HPF Urine Crystals NONE /LPF Urine Bacteria NEGATIVE /HPF Urine Casts NONE /LPF Urine Mucus NEGATIVE /LPF Urine Culture Indicated NO (BRIANNE OLMSTEAD MD) Medications Given in ED Current Medications Medications Dose Ordered Sig/Victorina Route Start Time Stop Time Status Last Admin Dose Admin Lorazepam 0.5 mg ONCE PRN IVP 09/25/21 11:45 09/25/21 13:32 DC 09/25/21 11:53 0.5 MG (BRIANNE OLMSTEAD MD) Vital Signs/I&O 09/25/21 09/25/21 11:33 13:32 Temp 36.8 Pulse 87 80 Resp 22 18 B/P (MAP) 127/68 (87) 106/72 Pulse Ox 99 99 O2 Delivery Room Air Room Air (BRIANNE OLMSTEAD MD) Vital Signs/I&O Capillary Refill : (ANKITA STOVALL APRN) Departure Communication (Admissions) 1307-She is now feeling normal again. Alert and oreinted, verbal, smiling and appreciative. GCS 15, A&O x3. states that her vistaril has not been working this week. Will give rx for PRN lorazepam 0.5mg. Made appointment with Dr Grove to address getting home health (per husbands request) for this , 09/28/2021 at 3:15 PM. NAME: DEYSI HAGER MED REC#: [id number] PT STATUS: REG ER : 1945 PHYSICIAN: ANKITA STOVALL APRN ADMIT DATE: 09/25/21/ER Draft Date of Exam:09/25/21 CHEST 1 VIEW, AP/PA ONLY INDICATION: Chest pain. EXAMINATION: Portable chest at 12:22 p.m. FINDINGS: There are postop changes from CABG surgery. There is a loop recorder projecting over the left lower chest. Heart size and pulmonary vascularity are normal. Lungs are clear. There are no effusions or pneumothoraces. IMPRESSION: Postsurgical changes in the chest. No acute abnormalities seen. Dictated on workstation # [id number] Dict: 09/25/21 1222 Trans: 09/25/21 1225 [id number] Interpreted by: JOSEFINA PARADA MD Electronically signed by: (ANKITA STOVALL APRN) Impression Primary Impression: Anxiety Disposition: 01 HOME, SELF-CARE Condition: Improved Departure-Patient Inst. Decision time for Depature: 13:12 (ANKITA STOVALL APRN) Referrals: ETHEL GROVE DO (PCP/Family) Primary Care Physician Patient Instructions: Anxiety, Adult (DC) Add. Discharge Instructions: I made an appointment for you with Dr. Grove this , 09/28/2021 at 3:15 PM. They will discuss getting home health set up for you. You can stop using the current as needed anxiety medicine called hydroxyzine and replace it with the new as needed anxiety medicine called lorazepam. Return to ER for any concerns. Continue all other current medications. Scripts Lorazepam (Ativan) 0.5 Mg Tablet 0.5 MG PO BID PRN for ANXIETY for 7 Days, #14 TAB Prov: ANKITA STOVALL APRN 09/25/21 ATTENDING PHYSICIAN NOTE: I was physically present as attending physician in the emergency department during the care of this patient, but I was not directly involved in the decision making or delivery of care for this patient. (BRIANNE OLMSTEAD MD) ANKITA STOVALL APRN Sep 25, 2021 11:44 BRIANNE OLMSTEAD MD Sep 25, 2021 19:19
[2021-09-25] MEDS ORDERED: LORazepam INJ 2 MG/ML (ATIVAN) VIAL IVP PRN (11:45)
[2021-09-25] MEDS ORDERED: NS IV 500 ML 500 ML IV SCH (11:45)
[2021-09-25 11:46] LABS: BASOPHILS % (AUTO) 1 % (0-10); EOSINOPHILS % (AUTO) 0 % (0-10); HEMATOCRIT 32 % (35-52); HEMOGLOBIN 10.8 g/dL (11.5-16.0); LYMPHOCYTES # (AUTO) 0.8 10^3/uL (1.0-4.0); LYMPHOCYTES % (AUTO) 14 % (12-44); MEAN CORPUSCULAR HEMOGLOBIN 32 pg (25-34); MEAN CORPUSCULAR HGB CONC 34 g/dL (32-36); MEAN CORPUSCULAR VOLUME 93 fL (80-99); MEAN PLATELET VOLUME 10.2 fL (9.0-12.2); MONOCYTES # (AUTO) 0.6 10^3/uL (0.0-1.0); MONOCYTES % (AUTO) 9 % (0-12); NEUTROPHILS # (AUTO) 4.6 10^3/uL (1.8-7.8); NEUTROPHILS % (AUTO) 76 % (42-75); PLATELET COUNT 305 10^3/uL (130-400)
[2021-09-25 12:00] LABS: ALBUMIN 3.2 GM/DL (3.2-4.5); PROTHROMBIN TIME PATIENT 13.8 SEC (12.2-14.7)
[2021-09-25 12:01] LABS: POTASSIUM 4.2 MMOL/L (3.6-5.0)
[2021-09-25 12:02] LABS: CALCIUM 9.6 MG/DL (8.5-10.1)
[2021-09-25 12:03] LABS: TOTAL PROTEIN 6.2 GM/DL (6.4-8.2)
[2021-09-25 12:05] LABS: BILIRUBIN,TOTAL 1.1 MG/DL (0.1-1.0)
[2021-09-25 12:07] LABS: CREATININE SERUM 1.35 MG/DL (0.60-1.30)
--- NOTE | 2021-09-25 12:26 | Diagnostic Imaging Report ---
INDICATION: Chest pain. EXAMINATION: Portable chest at 12:22 p.m. FINDINGS: There are postop changes from CABG surgery. There is a loop recorder projecting over the left lower chest. Heart size and pulmonary vascularity are normal. Lungs are clear. There are no effusions or pneumothoraces. IMPRESSION: Postsurgical changes in the chest. No acute abnormalities seen. Dictated by: Dictated on workstation # [id number]
[2021-09-25 12:43] LABS: BILIRUBIN,URINE NEGATIVE (NEGATIVE); CLARITY,URINE CLEAR; COLOR,URINE YELLOW; GLUCOSE, URINE (UA) NEGATIVE (NEGATIVE); KETONES,URINE 1+ (NEGATIVE); LEUKOCYTE ESTERASE ,URINE TRACE (NEGATIVE); NITRITE,URINE NEGATIVE (NEGATIVE); PROTEIN,URINE NEGATIVE (NEGATIVE)
[2021-09-25 12:51] LABS: BACTERIA,URINE NEGATIVE /HPF; WBC,URINE 0-2 /HPF
[2021-09-25] MEDS ORDERED: LORA-404 PO (13:14)
[2021-09-25 13:32] VITALS: BP 106/72
== END 2021-09-25 13:32 | disposition home or self-care (01) ==
LOC: ER 11:33 → EDUNIT# 11:33 → ER 13:32
DX: F41.9 Anxiety disorder, unspecified (principal)
CPT/HCPCS: 36415; 51701; 71045; 80053; 81000; 83880; 85025; 85610

== ENCOUNTER 2021-10-31 09:50 | Emergency (ER) | payer MEDICARE, OTHER ==
[~2021-10-31] VITALS: Ht 162 cm; Wt 52.1 kg
[~2021-10-31 09:50] MED LIST changes: +LORA-404 PO
--- NOTE | 2021-10-31 10:03 | ED Fall/Injury ---
General Chief Complaint: Trauma-Non Activation Stated Complaint: FALL - BACK PAIN Source: patient Exam Limitations: no limitations History of Present Illness Date Seen by Provider: Oct 31, 2021 Time Seen by Provider: 09:52 Initial Comments Patient presents ER by private conveyance with her and chief complaint that about 4 days ago she had a fall while reaching up high into the pantry landing backwards square on her back. She denies striking her head nor loss of consciousness. She is on Plavix. She has had a fall in May 2021 on ice which resulted in 3 vertebral fractures. No surgery or kyphoplasty at that time. She is followed by Dr. Grove and she saw him 2 days ago but they did not discuss her pain. She has been using tramadol as well as Tylenol without significant relief of pain. She is not having saddle anesthesia, loss of control of bowel or bladder, numbness or paresthesias down her legs. She does have some tingling and numbness on the left side of her upper lumbar spine radiating just a few centimeters into the paraspinous muscles. She is able to walk in on her own power using a walker. They have been given a referral to a back specialist in [place] by Dr. Grove but have not made the appointment yet. Allergies and Home Medications Allergies Coded Allergies: codeine (Verified Allergy, Unknown, 05/13/18) nausea/faints olanzapine (Verified Allergy, Unknown, 08/03/08) cefadroxil (Verified Adverse Reaction, Mild, MAKES HER DIZZY AND FAINTS, 05/15/18) faints Patient Home Medication List Home Medication List Reviewed: Yes Acetaminophen (Tylenol Extra Strength) 500 Mg Tablet, 1,000 MG PO Q8H PRN for PAIN-MILD (1-4), (Reported) Entered as Reported by: AUTUMN SIMMONS on 09/08/21 1423 Aspirin (Aspirin EC) 81 Mg Tablet., 81 MG PO DAILY, (Reported) Entered as Reported by: AUTUMN SIMMONS on 09/08/21 1423 Atorvastatin Calcium (Atorvastatin Calcium) 80 Mg Tablet, 80 MG PO HS, (Re ported) Entered as Reported by: JOSE ANGEL ANTONY on 05/14/18 0905 Buspirone HCl (Buspirone HCl) 15 Mg Tablet, 15 MG PO TID, (Reported) Entered as Reported by: AUTUMN SIMMONS on 09/08/21 142 Cholecalciferol (Vitamin D3) (Vitamin D3) 50 Mcg Tablet, 50 MCG PO DAILY, (Reported) Entered as Reported by: AUTUMN SIMMONS on 09/08/211422 Cholestyramine (with Sugar) (Cholestyramine Powder) 378 Gm Powder, 9 GM PO BID, (Reported) Entered as Reported by: AUTUMN SIMMONS on 09/08/21 142 Clopidogrel Bisulfate (Clopidogrel) 75 Mg Tablet, 75 MG PO DAILY, (Reported) Entered as Reported by: AUTUMN SIMMONS on 09/08/21 142 Cyanocobalamin (Vitamin B-12) (Vitamin B-12) 1,000 Mcg Tablet, 1,000 MCG PO DAILY, (Reported) Entered as Reported by: AUTUMN SIMMONS on 09/08/21 142 Duloxetine HCl (Duloxetine HCl) 60 Mg Capsule.dr, 60 MG PO BID, (Reported) Entered as Reported by: JOSE ANGEL ANTONY on 05/14/18 09 Enalapril Maleate (Enalapril Maleate) 2.5 Mg Tablet, 2.5 MG PO DAILY, (Reported) Entered as Reported by: AUTUMN SIMMONS on 09/08/21 142 Furosemide (Furosemide) 40 Mg Tablet, 40 MG PO DAILY, (Reported) Entered as Reported by: AUTUMN SIMMONS on 09/08/21 142 Gabapentin (Gabapentin) 600 Mg Tablet, 600 MG PO BID, (Reported) Entered as Reported by: JOSE ANGEL ANTONY on 05/14/18 09 Hydroxyzine Pamoate (Hydroxyzine Pamoate) 50 Mg Capsule, 50 MG PO BID PRN for ANXIETY, (Reported) Entered as Reported by: AUTUMN SIMMONS on 09/08/21 142 Levofloxacin (Levofloxacin) 750 Mg Tablet, 750 MG PO Q48H Prescribed by: JASVIR HEWITT on 09/11/21 1301 Levothyroxine Sodium (Synthroid) 88 Mcg Tablet, 88 MCG PO DAILY, (Reported) Entered as Reported by: AUTUMN SIMMONS on 09/08/21 142 Lorazepam (Ativan) 0.5 Mg Tablet, 0.5 MG PO BID PRN for ANXIETY Prescribed by: ANKITA STOVALL on 09/25/21 1314 Metoprolol Tartrate (Metoprolol Tartrate) 25 Mg Tablet, 25 MG PO BID, (Reported) Entered as Reported by: JOSE ANGEL ANTONY on 05/14/18904 Mirtazapine (Mirtazapine) 45 Mg Tablet, 45 MG PO HS, (Reported) Entered as Reported by: AUTUMN SIMMONS on 09/08/21 142 [place]-3 Acid Ethyl Esters ([place]-3 Acid Ethyl Esters) 1 Gm Capsule, 2 GM PO BID, (Reported) Entered as Reported by: JOSE ANGEL ANTONY on 05/14/18 09 Omeprazole (Omeprazole) 20 Mg Capsule.dr, 20 MG PO HS, (Reported) Entered as Reported by: JOSE ANGEL ANTONY on 05/14/18904 Potassium Chloride (Potassium Chloride) 10 Meq Capsule.er, 10 MEQ PO DAILY, (Reported) Entered as Reported by: AUTUMN SIMMONS on 09/08/211422 Quetiapine Fumarate (Quetiapine Fumarate) 25 Mg Tablet, 25 MG PO BID, (Reported) Entered as Reported by: AUTUMN SIMMONS on 09/08/211422 Tramadol HCl (Tramadol HCl) 50 Mg Tablet, 50 MG PO Q6H PRN for PAIN-MODERATE (5- 7), (Reported) Entered as Reported by: AUTUMN SIMMONS on 09/08/211422 Review of Systems Review of Systems Constitutional: No chills, No diaphoresis, No fever, No malaise Eyes: Denies Blindness, Denies Blurred Vision Ears, Nose, Mouth, Throat: denies ear pain, denies ear discharge Respiratory: No cough, No short of breath Cardiovascular: No chest pain, No edema Past Rttdwdi-Drwzag-Rhxovr Hx Patient Social History Tobacco Use?: No Use of E-Cig and/or Vaping dev: No Substance use?: No Immunizations Up To Date First/Initial COVID19 Vaccinat: NONE Second COVID19 Vaccination Scooby: NONE Third COVID19 Vaccination Date: NONE Seasonal Allergies Seasonal Allergies: No Past Medical History Surgeries: Yes (Hiatal Hernia, Breast BX, Bladder surgery x 3 (had mesh sling, tie up, ) Abdominal, Bladder Surgery, CABG, Hysterectomy Respiratory: Yes Sleep Apnea Currently Using CPAP: Yes (SLEEP APNEA) Currently Using BIPAP: No Cardiac: Yes Coronary Artery Disease, High Cholesterol, Hypertension Neurological: No 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 Genitourinary: Yes Bladder Infection, Renal Failure, UTI-Chronic Gastrointestinal: Yes Diverticulosis, Irritable Bowel Musculoskeletal: Yes Arthritis, Fibromyalgia Endocrine: Yes Hypothyroidsim HEENT: Yes Cataract Loss of Vision: Denies Cancer: No Psychosocial: Yes Anxiety, Depression Integumentary: No Blood Disorders: No Family Medical History Alzheimer's disease (mother) Cardiovascular disease (mother and father) Carotid artery stenosis (father) Hypercholesterolemia (mother and father) Hypertension Myocardial infarction (mother and father) No Pertinent Family Hx Physical Exam Vital Signs Vital Signs - First Documented 10/31/21 09:53 Temp 36.7 Pulse 101 Resp 18 B/P (MAP) 103/61 (75) Pulse Ox 100 O2 Delivery Room Air Capillary Refill : Height, Weight, BMI Height: 5'3.00" Weight: 150lbs. 0oz. [id number]; 19.00 BMI Method:Estimated General Appearance: WD/WN, no apparent distress HEENT: normal ENT inspection, pharynx normal Neck: full range of motion, normal inspection Cardiovascular: normal peripheral pulses, regular rate, rhythm Respiratory: lungs clear, normal breath sounds, no respiratory distress, no accessory muscle use Peripheral Pulses: 2+ Radial Pulses (R), 2+ Radial Pulses (L) Extremities: non-tender, normal inspection, normal capillary refill Neurologic/Psychiatric: no motor/sensory deficits, alert, normal mood/affect, oriented x 3 Skin: normal color, warm/dry [place] Coma Score Best Eye Response: (4) Open Spontaneously Best Verbal Response: (5) Oriented Best Motor Response: (6) Obeys Commands Geo Total: 15 Procedures/Interventions Suture Size: 5-0 Progress/Results/Core Measures Results/Orders My Orders Orders - MARICHUY WILLIS Thoracic Spine, 2 Views Only (10/31/21 10:00) Lumbar Spine - 2-3 Views (10/31/21 10:00) Vital Signs/I&O 10/31/21 10/31/21 10/31/21 10/31/21 09:53 09:53 10:28 11:10 Temp 36.7 Pulse 101 101 82 78 Resp 18 18 18 20 B/P (MAP) 103/61 (75) 103/61 (75) 125/61 113/57 Pulse Ox 100 100 100 99 O2 Delivery Room Air Room Air Room Air Room Air Blood Pressure Mean: 75 Progress Progress Note : Time: 11:28 Progress Note The patient did not want anything for pain initially. We discussed using hydro codone for severe bouts of pain and she did not feel that she wanted that since she has daytime somnolence and constipation already. We discussed lidocaine patches and topical creams such as Voltaren. We also strongly encourage the patient to follow-up with the back specialist. We will give her the number for physical therapy. She does seem to have some advancing fractures in her back from this recent fall. She denied having any neurologic symptoms. She is well outside the period of observation for a head bleed despite the Plavix. Diagnostic Imaging Diagonstic Imaging: Xray Plain Films/CT/US/NM/MRI: other (Thoracic spine) Comments [facility], [place] NAME: DEYSI HAGER [facility] REC#: [id number] PT STATUS: REG ER : 1945 PHYSICIAN: MARICHUY WILLIS MD ADMIT DATE: 10/31/21/ER Signed Date of Exam:10/31/21 THORACIC SPINE, 2 VIEWS ONLY CLINICAL INDICATION: Patient is status post fall with back pain. EXAMS: 1: X-ray of the thoracic spine, AP and lateral views. 2: X-ray of the lumbar spine, 3 views. COMPARISON: CT scan of the thoracic and lumbar spine without contrast dated 04/27/2021. FINDINGS: There is a roughly 40% anterior wedge compression fracture deformity of the T12 vertebra which demonstrates progression of loss of height compared to the prior CT scan. Previously, the patient had a compression fracture in this area. It is unknown if there is acute on chronic or progression of a chronic fracture. There is interval development of a mild compression deformity of the upper endplate of the L1 vertebra. Again noted is the chronic compression fracture deformity of the upper endplate of the L2 vertebra. The remainder of the visualized thoracic and lumbar spine shows no other fracture. There are degenerative spurs involving the thoracic and lumbar spine as well as facet arthropathy. Postop changes to the chest, consistent with CABG, are noted. A loop recorder is seen overlying the left lower anterior chest wall region. IMPRESSION: 1: There is a mild compression deformity of the upper endplate of the L1 vertebra of unknown age. A CT scan of the lumbar spine would better evaluate. 2: There is an anterior wedge compression fracture deformity of the T12 vertebra which has progressed in loss of height compared to the prior study which previously showed a compression fracture. It is unknown if this is an acute on chronic fracture versus a chronic fracture. 3: Chronic L2 vertebral body compression fracture. Dictated by: Dictated on workstation # [id number] Dict: 10/31/21 1034 Trans: 10/31/21 1101 [id number] Interpreted by: LIZ BHARDWAJ MD Electronically signed by: LIZ BHARDWAJ MD 10/31/211100 Reviewed: Reviewed by Me Diagonstic Imaging: Xray Plain Films/CT/US/NM/MRI: other (Lumbar spine) Comments [facility], [place] NAME: DEYSI HAGER [facility] REC#: [id number] PT STATUS: REG ER : 1945 PHYSICIAN: MARICHUY WILLIS MD ADMIT DATE: 10/31/21/ER Signed Date of Exam:10/31/21 THORACIC SPINE, 2 VIEWS ONLY CLINICAL INDICATION: Patient is status post fall with back pain. EXAMS: 1: X-ray of the thoracic spine, AP and lateral views. 2: X-ray of the lumbar spine, 3 views. COMPARISON: CT scan of the thoracic and lumbar spine without contrast dated 04/27/2021. FINDINGS: There is a roughly 40% anterior wedge compression fracture deformity of the T12 vertebra which demonstrates progression of loss of height compared to the prior CT scan. Previously, the patient had a compression fracture in this area. It is unknown if there is acute on chronic or progression of a chronic fracture. There is interval development of a mild compression deformity of the upper endplate of the L1 vertebra. Again noted is the chronic compression fracture deformity of the upper endplate of the L2 vertebra. The remainder of the visualized thoracic and lumbar spine shows no other fracture. There are degenerative spurs involving the thoracic and lumbar spine as well as facet arthropathy. Postop changes to the chest, consistent with CABG, are noted. A loop recorder is seen overlying the left lower anterior chest wall region. IMPRESSION: 1: There is a mild compression deformity of the upper endplate of the L1 vertebra of unknown age. A CT scan of the lumbar spine would better evaluate. 2: There is an anterior wedge compression fracture deformity of the T12 vertebra which has progressed in loss of height compared to the prior study which previously showed a compression fracture. It is unknown if this is an acute on chronic fracture versus a chronic fracture. 3: Chronic L2 vertebral body compression fracture. Dictated by: Dictated on workstation # [id number] Dict: 10/31/21 1034 Trans: 10/31/21 1101 [id number] Interpreted by: LIZ BHARDWAJ MD Electronically signed by: LIZ BHARDWAJ MD 10/31/21 110 Reviewed: Reviewed by Me Departure Impression Primary Impression: Closed lumbar vertebral fracture Qualified Codes: S32.010G - Wedge compression fracture of first lumbar vertebra, subsequent encounter for fracture with delayed healing Disposition: 01 HOME, SELF-CARE Condition: Stable Departure-Patient Inst. Decision time for Depature: 11:33 Referrals: ETHEL GROVE DO (PCP/Family) Primary Care Physician RAY AGRNER MD Patient Instructions: Vertebral Compression Fracture (DC) Add. Discharge Instructions: I suggest you contact your back surgeon you were referred to and set up an appointment for reexamination and to help manage your symptoms. 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 You may also use topical creams such as icy hot, Biofreeze or Voltaren which has pain medicine and it. Tylenol 1000 mg every 8 hours as needed for pain. If you are not already engaged in physical therapy then I suggest you call [facility] physical therapy at [phone] and request an evaluation. Your primary care office can help you manage pain as well. Promptly return to the nearest ER if you are having intractable pain, loss of control of bowel or bladder, falls due to weakness or other worrisome symptoms. All discharge instructions reviewed with patient and/or family. Voiced understanding. Copy Copies To 1: ETHEL GROVE DO; RAY GARNER MD, TITUS J Oct 31, 2021 10:02
--- NOTE | 2021-10-31 10:48 | Diagnostic Imaging Report ---
CLINICAL INDICATION: Patient is status post fall with back pain. EXAMS: 1: X-ray of the thoracic spine, AP and lateral views. 2: X-ray of the lumbar spine, 3 views. COMPARISON: CT scan of the thoracic and lumbar spine without contrast dated 04/27/2021. FINDINGS: There is a roughly 40% anterior wedge compression fracture deformity of the T12 vertebra which demonstrates progression of loss of height compared to the prior CT scan. Previously, the patient had a compression fracture in this area. It is unknown if there is acute on chronic or progression of a chronic fracture. There is interval development of a mild compression deformity of the upper endplate of the L1 vertebra. Again noted is the chronic compression fracture deformity of the upper endplate of the L2 vertebra. The remainder of the visualized thoracic and lumbar spine shows no other fracture. There are degenerative spurs involving the thoracic and lumbar spine as well as facet arthropathy. Postop changes to the chest, consistent with CABG, are noted. A loop recorder is seen overlying the left lower anterior chest wall region. IMPRESSION: 1: There is a mild compression deformity of the upper endplate of the L1 vertebra of unknown age. A CT scan of the lumbar spine would better evaluate. 2: There is an anterior wedge compression fracture deformity of the T12 vertebra which has progressed in loss of height compared to the prior study which previously showed a compression fracture. It is unknown if this is an acute on chronic fracture versus a chronic fracture. 3: Chronic L2 vertebral body compression fracture. Dictated by: Dictated on workstation # [id number]
[2021-10-31 11:51] VITALS: BP 124/59
== END 2021-10-31 11:52 | disposition home or self-care (01) ==
LOC: EDUNIT# 09:50 → ER 09:51
DX: S32.010A Wedge compression fracture of first lumbar vertebra, initial encounter for closed fracture (principal); S22.080A Wedge compression fracture of T11-T12 vertebra, initial encounter for closed fracture; Z79.01 Long term (current) use of anticoagulants; W18.30XA Fall on same level, unspecified, initial encounter
CPT/HCPCS: 72070; 72100

== ENCOUNTER 2021-11-20 12:04 | Inpatient (IN) | payer MEDICARE, OTHER ==
[~2021-11-20] VITALS: Ht 160 cm; Wt 54.6 kg
[~2021-11-20 12:04] MED LIST changes: -CHOL378P PO; +CHOL378P6 PO
[2021-11-20] MEDS ORDERED: cefTRIAXone 1 GM PRE-MIX 50 ML IV STA (12:16)
[2021-11-20] MEDS ORDERED: LACTATED RINGERS 1,000 ML IV ONE (12:30)
--- NOTE | 2021-11-20 12:30 | ED Neurological Problem ---
General Chief Complaint: Altered Mental Status Stated Complaint: AMS Nursing Triage Note: PT TO [facility]IA [facility] FROM HOME. EMS ADVISES AND HOME HEALTH NURSE REPORT PT IS EXPERIENCING AMS, HALLUCINATIONS, DECREASED APPETITE, AND WEAKNESS. PT C/O GHOSH AND CP. PT ALERT, ORIENTED X3. Source: patient, EMS History of Present Illness Date Seen by Provider: November 20, 2021 Time Seen by Provider: 12:23 Initial Comments Patient is a 76-year-old female with a history of coronary artery disease, CHF, dementia who presents ED by EMS for increased change in mental status. Worsenin g symptoms over the past 2 days. According to patient has not been the same since she was diagnosed with COVID about a month and a half ago. Difficulty ambulating at home. He has a sister. Home health does visit patient. Fell 4 days ago. She does have some bruising throughout the body noted on the right elbow right hip and lower extremities. Patient has not been eating or drinking. Home health does see patient at home and was concerned for her change in mental status.. denies patient falling hitting her head. Patient is on a blood thinner. Has not been eating according to EMS. EMS states that patient been having hallucinations has been staring at the ceiling and talking to the ceiling. Increase weakness. Patient alert and orient x3. She states she has been having some intermittent chest pain since Saturday but no current chest pain. Intermittent headache without any specific location. Patient mouth is dry. She is moving all extremities. She denies of any urinary symptoms, abdominal pain, vomiting, diarrhea, visual changes, unilateral muscle weakness or sensory changes. According to followed up with Jean for lower back fracture from a recent fall. Has fallen twice over the past 2 weeks. Allergies and Home Medications Allergies Coded Allergies: codeine (Verified Allergy, Unknown, 05/13/18) nausea/faints olanzapine (Verified Allergy, Unknown, 08/03/08) cefadroxil (Verified Adverse Reaction, Mild, MAKES HER DIZZY AND FAINTS, 05/15/18) faints Patient Home Medication List Home Medication List Reviewed: Yes Acetaminophen (Tylenol Extra Strength) 500 Mg Tablet, 1,000 MG PO Q8H PRN for PAIN-MILD (1-4), (Reported) Entered as Reported by: AUTUMN SIMMONS on 09/08/21 2583 Aspirin (Aspirin EC) 81 Mg Tablet.dr, 81 MG PO DAILY, (Reported) Entered as Reported by: AUTUMN SIMMONS on 09/08/211422 Atorvastatin Calcium (Atorvastatin Calcium) 80 Mg Tablet, 80 MG PO HS, (Reported) Entered as Reported by: JOSE ANGEL ANTONY on 05/14/18904 Buspirone HCl (Buspirone HCl) 15 Mg Tablet, 15 MG PO TID, (Reported) Entered as Reported by: AUTUMN SIMMONS on 09/08/211422 Cholecalciferol (Vitamin D3) (Vitamin D3) 50 Mcg Tablet, 50 MCG PO DAILY, (Reported) Entered as Reported by: AUTUMN SIMMONS on 09/08/211422 Cholestyramine (with Sugar) (Cholestyramine Powder) 378 Gm Powder, 9 GM PO BID, (Reported) Entered as Reported by: AUTUMN SIMMONS on 09/08/211422 Clopidogrel Bisulfate (Clopidogrel) 75 Mg Tablet, 75 MG PO DAILY, (Reported) Entered as Reported by: AUTUMN SIMMONS on 09/08/211422 Cyanocobalamin (Vitamin B-12) (Vitamin B-12) 1,000 Mcg Tablet, 1,000 MCG PO DAILY, (Reported) Entered as Reported by: AUTUMN SIMMONS on 09/08/211422 Duloxetine HCl (Duloxetine HCl) 60 Mg Capsule.dr, 60 MG PO BID, (Reported) Entered as Reported by: JOSE ANGEL ANTONY on 05/14/18904 Enalapril Maleate (Enalapril Maleate) 2.5 Mg Tablet, 2.5 MG PO DAILY, (Reported) Entered as Reported by: AUTUMN SIMMONS on 09/08/211422 Furosemide (Furosemide) 40 Mg Tablet, 40 MG PO DAILY, (Reported) Entered as Reported by: AUTUMN SIMMONS on 09/08/211422 Gabapentin (Gabapentin) 600 Mg Tablet, 600 MG PO BID, (Reported) Entered as Reported by: JOSE ANGEL ANTONY on 05/14/18904 Hydroxyzine Pamoate (Hydroxyzine Pamoate) 50 Mg Capsule, 50 MG PO BID PRN for ANXIETY, (Reported) Entered as Reported by: AUTUMN SIMMONS on 09/08/211422 Levofloxacin (Levofloxacin) 750 Mg Tablet, 750 MG PO Q48H Prescribed by: JASVIR HEWITT on 09/11/21 1301 Levothyroxine Sodium (Synthroid) 88 Mcg Tablet, 88 MCG PO DAILY, (Reported) Entered as Reported by: AUTUMN SIMMONS on 09/08/211422 Lorazepam (Ativan) 0.5 Mg Tablet, 0.5 MG PO BID PRN for ANXIETY Prescribed by: ANKITA STOVALL on 09/25/21 1314 Metoprolol Tartrate (Metoprolol Tartrate) 25 Mg Tablet, 25 MG PO BID, (Reported) Entered as Reported by: JOSE ANGEL ANTONY on 05/14/18 09 Mirtazapine (Mirtazapine) 45 Mg Tablet, 45 MG PO HS, (Reported) Entered as Reported by: AUTUMN SIMMONS on 09/08/211422 [place]-3 Acid Ethyl Esters ([place]-3 Acid Ethyl Esters) 1 Gm Capsule, 2 GM PO BID, (Reported) Entered as Reported by: JOSE ANGEL ANTONY on 05/14/18 09 Omeprazole (Omeprazole) 20 Mg Capsule.dr, 20 MG PO HS, (Reported) Entered as Reported by: JOSE ANGEL ANTONY on 05/14/18 09 Potassium Chloride (Potassium Chloride) 10 Meq Capsule.er, 10 MEQ PO DAILY, (Reported) Entered as Reported by: AUTUMN SIMMONS on 09/08/211422 Quetiapine Fumarate (Quetiapine Fumarate) 25 Mg Tablet, 25 MG PO BID, (Reported) Entered as Reported by: AUTUMN SIMMONS on 09/08/211422 Tramadol HCl (Tramadol HCl) 50 Mg Tablet, 50 MG PO Q6H PRN for PAIN-MODERATE (5- 7), (Reported) Entered as Reported by: AUTUMN SIMMONS on 09/08/211422 Review of Systems Review of Systems Constitutional: No chills, No diaphoresis, No fever, No malaise; weakness; No other Eyes: Denies Blurred Vision, Denies Decreased Acuity, Denies Pain Ears, Nose, Mouth, Throat: denies ear pain, denies ear discharge Respiratory: No cough, No short of breath, No stridor, No wheezing Cardiovascular: No edema, No palpitations Gastrointestinal: No abdominal pain, No nausea, No vomiting Genitourinary: No decreased output, No discharge, No dysuria, No frequency Musculoskeletal: back pain; No joint pain, No joint swelling, No muscle pain, No muscle stiffness Psychiatric/Neurological: Anxiety Past Vbooyye-Bpbjkt-Tjutyi Hx Immunizations Up To Date First/Initial COVID19 Vaccinat: NONE Second COVID19 Vaccination Scooby: NONE Third COVID19 Vaccination Date: NONE Seasonal Allergies Seasonal Allergies: No Past Medical History Surgeries: Yes (Hiatal Hernia, Breast BX, Bladder surgery x 3 (had mesh sling, tie up, ) Abdominal, Bladder Surgery, CABG, Hysterectomy Respiratory: Yes Sleep Apnea Currently Using CPAP: Yes (SLEEP APNEA) Currently Using BIPAP: No Cardiac: Yes Coronary Artery Disease, High Cholesterol, Hypertension Neurological: No 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 Disorders: No 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 Genitourinary: Yes Bladder Infection, Renal Failure, UTI-Chronic Gastrointestinal: Yes Diverticulosis, Irritable Bowel Musculoskeletal: Yes Arthritis, Fibromyalgia Endocrine: Yes Hypothyroidsim HEENT: Yes Cataract Loss of Vision: Denies Cancer: No Psychosocial: Yes Anxiety, Depression Integumentary: No Blood Disorders: No Family Medical History Alzheimer's disease (mother) Cardiovascular disease (mother and father) Carotid artery stenosis (father) Hypercholesterolemia (mother and father) Hypertension Myocardial infarction (mother and father) No Pertinent Family Hx Physical Exam Vital Signs Vital Signs - First Documented 11/20/21 12:10 Temp 36.9 Pulse 89 Resp 20 B/P (MAP) 103/50 (67) Pulse Ox 96 Capillary Refill : Height, Weight, BMI Height: 5'3.00" Weight: 150lbs. 0oz. [id number]; 20.00 BMI Method:Estimated General Appearance: WD/WN, no apparent distress HEENT: PERRL/EOMI, normal ENT inspection, TMs normal, pharynx normal Neck: non-tender, full range of motion, supple, normal inspection Respiratory: chest non-tender, lungs clear, normal breath sounds, no respiratory distress Cardiovascular: regular rate, rhythm, no edema, no gallop, no JVD Gastrointestinal: normal bowel sounds, non tender, soft, no organomegaly Extremities: other (Bruising to right elbow. Bruising to right lateral hip. Normal active range of motion upper and lower extremities.) Neurologic/Psychiatric: nps II-XII nml as tested, no motor/sensory deficits, alert Motor/Sensory: no motor deficit, no sensory deficit Focused Exam Lactate Level 11/20/21 12:57: Lactic Acid Level 4.10*H Lactic Acid Level Laboratory Tests Test 11/20/21 12:57 Lactic Acid Level 4.10 MMOL/L (0.50-2.00) *H Procedures/Interventions Suture Size: 5-0 Progress/Results/Core Measures Results/Orders Lab Results Laboratory Tests Test 11/20/21 12:14 11/20/21 12:34 11/20/21 12:57 Range/Units White Blood Count 4.1 L 4.3-11.0 10^3/uL Red Blood Count 4.05 3.80-5.11 10^6/uL Hemoglobin 12.8 11.5-16.0 g/dL Hematocrit 38 35-52 % Mean Corpuscular Volume 93 80-99 fL Mean Corpuscular Hemoglobin 32 25-34 pg Mean Corpuscular Hemoglobin Concent 34 32-36 g/dL Red Cell Distribution Width 13.2 10.0-14.5 % Platelet Count 251 130-400 10^3/uL Mean Platelet Volume 11.3 9.0-12.2 fL Immature Granulocyte % (Auto) 0 % Neutrophils (%) (Auto) 57 42-75 % Lymphocytes (%) (Auto) 29 12-44 % Monocytes (%) (Auto) 12 0-12 % Eosinophils (%) (Auto) 1 0-10 % Basophils (%) (Auto) 1 0-10 % Neutrophils # (Auto) 2.3 1.8-7.8 10^3/uL Lymphocytes # (Auto) 1.2 1.0-4.0 10^3/uL Monocytes # (Auto) 0.5 0.0-1.0 10^3/uL Eosinophils # (Auto) 0.0 0.0-0.3 10^3/uL Basophils # (Auto) 0.0 0.0-0.1 10^3/uL Immature Granulocyte # (Auto) 0.0 0.0-0.1 10^3/uL Prothrombin Time 13.0 12.2-14.7 SEC INR Comment 0.9 0.8-1.4 Activated Partial Thromboplast Time 29 24-35 SEC Urine Color YELLOW Urine Clarity CLEAR Urine pH 6.5 5-9 Urine Specific [place] <=1.005 1.016-1.022 Urine Protein NEGATIVE NEGATIVE Urine Glucose (UA) NEGATIVE NEGATIVE Urine Ketones NEGATIVE NEGATIVE Urine Nitrite NEGATIVE NEGATIVE Urine Bilirubin NEGATIVE NEGATIVE Urine Urobilinogen 0.2 < = 1.0 MG/DL Urine Leukocyte Esterase NEGATIVE NEGATIVE Urine RBC (Auto) NEGATIVE NEGATIVE Urine RBC RARE /HPF Urine WBC RARE /HPF Urine Squamous Epithelial Cells NONE /HPF Urine Crystals PRESENT H /LPF Urine Amorphous Sediment MOD ALFONZO URATES H /LPF Urine Bacteria FEW H /HPF Urine Casts NONE /LPF Urine Mucus NEGATIVE /LPF Urine Culture Indicated YES Sodium Level 137 135-145 MMOL/L Potassium Level 2.9 L 3.6-5.0 MMOL/L Chloride Level 92 L 98-107 MMOL/L Carbon Dioxide Level 23 21-32 MMOL/L Anion Gap 22 H 5-14 MMOL/L Blood Urea Nitrogen 30 H 7-18 MG/DL Creatinine 2.25 H 0.60-1.30 MG/DL Estimat Glomerular Filtration Rate 22 BUN/Creatinine Ratio 13 Glucose Level 90 70-105 MG/DL Calcium Level 9.5 8.5-10.1 MG/DL Corrected Calcium 9.7 8.5-10.1 MG/DL Magnesium Level 1.6 1.6-2.4 MG/DL Total Bilirubin 1.2 H 0.1-1.0 MG/DL Aspartate Amino Transf (AST/SGOT) 20 5-34 U/L Alanine Aminotransferase (ALT/SGPT) 11 0-55 U/L Alkaline Phosphatase 69 40-136 U/L Troponin I < 0.028 <0.028 NG/ML B-Type Natriuretic Peptide 106.0 H <100.0 PG/ML Total Protein 6.1 L 6.4-8.2 GM/DL Albumin 3.7 3.2-4.5 GM/DL Thyroid Stimulating Hormone (TSH) 0.28 L 0.35-4.94 UIU/ML Influenza Type A (RT-PCR) Not Detected Not Detecte Influenza Type B (RT-PCR) Not Detected Not Detecte SARS-CoV-2 RNA (RT-PCR) Not Detected Not Detecte Lactic Acid Level 4.10 *H 0.50-2.00 MMOL/L My Orders Orders - JHONATHAN NICHOLAS Cbc With Automated Diff (11/20/21 12:16) Comprehensive Metabolic Panel (11/20/21 12:16) Blood Culture (11/20/21 12:16) Urinalysis (11/20/21 12:16) Urine Culture (11/20/21 12:16) Protime With Inr (11/20/21 12:16) Partial Thromboplastin Time (11/20/21 12:16) Chest 1 View, Ap/Pa Only (11/20/21 12:16) Ed Iv/Invasive Line Start (11/20/21 12:16) Lactic Acid Analyzer (11/20/21 12:16) Lactated Ringers (Lr 1000 Ml Iv Solution (11/20/21 12:30) Ceftriaxone 1 Gm Pre-Mix (Rocephin 1 Gm (11/20/21 12:16) Magnesium (11/20/21 12:16) Troponin I [place] (11/20/21 12:16) Bnp [place] (11/20/21 12:16) Covid 19 Inhouse Test (11/20/21 12:16) Influenza A And B By Pcr (11/20/21 12:16) Ct Head Wo (11/20/21 12:19) Elbow, Right, 3 Views (11/20/21 12:31) Hip, Right, 2 Views (11/20/21 12:31) Catheter(Urinary) Insert & Ass 03,15 (11/20/21 12:32) Ekg Tracing (11/20/21 12:37) Aspirin Chewable Tablet (Baby Aspirin Ch (11/20/21 13:15) Manager Recovery Consult (11/20/21 13:27) Ed Admission (Communication) (11/20/21 14:09) Medications Given in ED Current Medications Medications Dose Ordered Sig/Victorina Route Start Time Stop Time Status Last Admin Dose Admin Aspirin 324 mg ONCE ONCE PO 11/20/21 13:15 11/20/21 13:16 DC 11/20/21 15:05 324 MG Lactated Ringer's 1,000 ml @ 0 mls/hr Q0M ONCE IV 11/20/21 12:30 11/20/21 12:31 DC 11/20/21 13:02 0 MLS/HR Vital Signs/I&O 11/20/21 12:10 Temp 36.9 Pulse 89 Resp 20 B/P (MAP) 103/50 (67) Pulse Ox 96 Blood Pressure Mean: 67 Comment Sinus rhythm, possible left atrial argument, right bundle branch block, left anterior fascicular block, 90 bpm, QRS duration 166 MS, QTC 530 MS Departure Communication (Admissions) Patient on arrival alert and orient x3. According to increased confusion over the past 2 days. Since she was diagnosed with COVID about a month and a half ago she has not been the same. Diagnosed with early dementia according to . Difficulty ambulating at home with bouts of confusion. She fell 4 days ago with two fall in two weeks. Has some bruising to the right hip and right elbow but has been walking some but not as long. X-rays were negative for fractures of the right elbow and hip. She has no focal neural deficits. Intermittent chest pain and headache. CT scan the head negative for acute abnormality. Chest x-ray negative for pneumonia. Urinalysis without strong evidence of UTI. Due to increased confusion concerning for infectious etiology. Blood cultures were ordered. Lactic acid 4.1. Was given a liter of fluid. Antibiotics were held until potential source such as UTI. She was given a liter fluid. She was slightly hypotensive but that did improve to 117/72 but remains low. MAP above 65. EKG sinus rhythm with right bundle branch block with previous EKG results in the past. No current chest pain or shortness of breath. Patient was given aspirin 324mg. Normal troponin with slight elevated BNP. History of CHF. Acute on chronic kidney failure. Concerning for dehydration. Not wanting take her medication at home. concern not able to take care of patient at home. Would likely benefit with [facility]cf. Patient is DNR. Patient will be admitted for further evaluation. She was hypokalemic at 2.9. These results were discussed with the hospitalist who will provide orders at this time with potassium and fluids. Recommend no antibiotics at this time. Impression Primary Impression: Acute kidney injury superimposed on chronic kidney disease Additional Impressions: Confusion Hypokalemia Dehydration Disposition: ADMITTED INPATIENT Condition: Stable Admissions Decision to Admit Reason: Admit from ER (General) Decision to Admit/Date: November 20, 2021 Time/Decision to Admit Time: 13:59 Departure-Patient Inst. Referrals: ETHEL MG DO (PCP/Family) Primary Care Physician JHONATHAN NICHOLAS November 20, 2021 12:29
[2021-11-20 12:32] LABS: BASOPHILS % (AUTO) 1 % (0-10); EOSINOPHILS % (AUTO) 1 % (0-10); HEMATOCRIT 38 % (35-52); HEMOGLOBIN 12.8 g/dL (11.5-16.0); LYMPHOCYTES # (AUTO) 1.2 10^3/uL (1.0-4.0); LYMPHOCYTES % (AUTO) 29 % (12-44); MEAN CORPUSCULAR HEMOGLOBIN 32 pg (25-34); MEAN CORPUSCULAR HGB CONC 34 g/dL (32-36); MEAN CORPUSCULAR VOLUME 93 fL (80-99); MEAN PLATELET VOLUME 11.3 fL (9.0-12.2); MONOCYTES # (AUTO) 0.5 10^3/uL (0.0-1.0); MONOCYTES % (AUTO) 12 % (0-12); NEUTROPHILS # (AUTO) 2.3 10^3/uL (1.8-7.8); NEUTROPHILS % (AUTO) 57 % (42-75); PLATELET COUNT 251 10^3/uL (130-400); WHITE BLOOD COUNT 4.1 10^3/uL (4.3-11.0)
[2021-11-20 12:33] LABS: BILIRUBIN,URINE NEGATIVE (NEGATIVE); CLARITY,URINE CLEAR; COLOR,URINE YELLOW; GLUCOSE, URINE (UA) NEGATIVE (NEGATIVE); KETONES,URINE NEGATIVE (NEGATIVE); LEUKOCYTE ESTERASE ,URINE NEGATIVE (NEGATIVE); NITRITE,URINE NEGATIVE (NEGATIVE); PH,URINE 6.5 (5-9); PROTEIN,URINE NEGATIVE (NEGATIVE)
[2021-11-20 12:47] LABS: ALBUMIN 3.7 GM/DL (3.2-4.5); CHLORIDE 92 MMOL/L (98-107); POTASSIUM 2.9 MMOL/L (3.6-5.0); SODIUM 137 MMOL/L (135-145)
[2021-11-20 12:48] LABS: AMORPHOUS SEDIMENT,UR MOD AMOR URATES /LPF; BACTERIA,URINE FEW /HPF; RBC,URINE RARE /HPF; WBC,URINE RARE /HPF
[2021-11-20 12:49] LABS: CALCIUM 9.5 MG/DL (8.5-10.1)
[2021-11-20 12:50] LABS: GLUCOSE 90 MG/DL (70-105); TOTAL PROTEIN 6.1 GM/DL (6.4-8.2)
[2021-11-20 12:51] LABS: CARBON DIOXIDE 23 MMOL/L (21-32)
[2021-11-20 12:52] LABS: BILIRUBIN,TOTAL 1.2 MG/DL (0.1-1.0); INR 0.9 (0.8-1.4)
[2021-11-20 12:53] LABS: ALKALINE PHOSPHATASE 69 U/L (40-136); CREATININE SERUM 2.25 MG/DL (0.60-1.30); GFR ESTIMATED 22
[2021-11-20 12:55] LABS: BUN/CREATININE RATIO 13
[2021-11-20 12:56] LABS: ALANINE AMINOTRANSFERASE 11 U/L (0-55)
[2021-11-20 12:57] LABS: MAGNESIUM 1.6 MG/DL (1.6-2.4)
[2021-11-20] MEDS ORDERED: ASPIRIN 81 MG CHEW (CHILDREN'S ASA) PO ONE (13:15)
--- NOTE | 2021-11-20 13:32 | Diagnostic Imaging Report ---
INDICATION: Altered mental status, hallucinations and weakness. TECHNIQUE: Multiple contiguous axial images were obtained through the brain without the use of intravenous contrast. Auto Exposure Controls were utilized during the CT exam to meet ALARA standards for radiation dose reduction. Comparison made with 09/07/2021. There are mild diffuse atrophic changes. There is no extra-axial fluid collection. No intracranial hemorrhage. No intracranial mass or mass effect. There are minimal low-density changes in deep white matter compatible with chronic ischemic change. There is no acute-appearing intracranial finding. The ventricles are normal in size and position. Calvarial windows appear unremarkable. Visualized portions of the sinuses and mastoid air cells are well aerated. IMPRESSION: Mild chronic changes with no acute intracranial abnormality. Dictated by: Dictated on workstation # [id number]
--- NOTE | 2021-11-20 13:40 | Diagnostic Imaging Report ---
Indication: Right hip pain. Time of Exam: 1:32 PM 2 views of the right hip were obtained. Femoral acetabular alignment is normal. The femoral head and neck are intact. No fractures are seen. There is some superior joint space narrowing compatible with degenerative change. Impression: Degenerative changes. No acute bony abnormality is detected. Dictated by: Dictated on workstation # [id number]
--- NOTE | 2021-11-20 13:41 | Diagnostic Imaging Report ---
Indication: Right elbow pain. Time of Exam: 1:27 PM 3 views of the right elbow were obtained and alignment is normal. Joint spaces are fairly well maintained. No fracture, dislocation or effusion is seen. IMPRESSION: No acute bony abnormality is detected. Dictated by: Dictated on workstation # [id number]
--- NOTE | 2021-11-20 13:41 | Diagnostic Imaging Report ---
Indication: Decreased appetite and weakness as well as headache and chest pain. Time of Exam: 1:31 PM Correlation is made with prior chest 09/25/2021. Changes of median sternotomy and CABG are noted. Cardiac loop recorder overlies the lower left chest. Lungs are clear. No infiltrates are seen. No effusion or pneumothorax is identified. Impression: No acute cardiopulmonary process is detected. Dictated by: Dictated on workstation # [id number]
--- NOTE | 2021-11-20 14:57 | History & Physical-Hospitalist ---
History of Present Illness HPI/Chief Complaint Patient is 76-year-old female who presented to the emergency department due to altered mental status. She is unable to tell me why she is here. She states that she has back pain since March. Upon review of records it seems that this is a much shorter history and roughly just 1 month ago. She was referred to program eligibility specialist by her PCP but at that time had not made an appointment and she is unsure if she is ever seen the back doctor. Review of ER note states that she was brought in for altered mental status and confusion with possible hallucinations. When I informed her of this she smiled and said "oh yeah that is my ." He was found to have an acute kidney injury and is admitted for further management. Source: patient Exam Limitations: no limitations Date Seen 11/20/21 Time Seen by a Provider: 14:53 Attending Physician PCP Paramjit Grove DO Referring Physician Date of Admission Home Medications & Allergies Home Medications Reviewed patient Home Medication Reconciliation performed by pharmacy medication reconciliations crime scene technician and/or nursing. Patients Allergies have been reviewed. Allergies Allergies Coded Allergies codeine (Verified Allergy, Unknown, 05/13/18) nausea/faints olanzapine (Verified Allergy, Unknown, 08/03/08) cefadroxil (Verified Adverse Reaction, Mild, MAKES HER DIZZY AND FAINTS, ) faints Past Flwhxot-Bkqufp-Ukakmw Hx Patient Social History Marrital Status: Employed/Student: retired Tobacco Use?: No Smoking Status: Unknown if Ever Smoked Use of E-Cig and/or Vaping dev: No Substance use?: No Alcohol Use?: No Immunizations Up To Date Date of Influenza Vaccine: May 15, 2018 First/Initial COVID19 Vaccinat: NONE Second COVID19 Vaccination Scooby: NONE Tetanus Booster (TDap): Unknown Date of Pneumonia Vaccine: Mar 31, 2013 Seasonal Allergies Seasonal Allergies: No Current Status Communicates: Verbally Primary Language: Albanian Preferred Spoken Language: Albanian Past Medical History Surgeries: Abdominal, Bladder Surgery, CABG, Hysterectomy Sleep Apnea Currently Using CPAP: Yes (SLEEP APNEA) Currently Using BIPAP: No Coronary Artery Disease, High Cholesterol, Hypertension 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: Hysterectomy Bladder Infection, Renal Failure, UTI-Chronic Diverticulosis, Irritable Bowel Arthritis, Fibromyalgia Hypothyroidsim Cataract Loss of Vision: Denies Anxiety, Depression Blood Disorders: No Family Medical History Alzheimer's disease (mother) Cardiovascular disease (mother and father) Carotid artery stenosis (father) Hypercholesterolemia (mother and father) Hypertension Myocardial infarction (mother and father) No Pertinent Family Hx Review of Systems ROS-Unable to Obtain: limited by mentation Constitutional: see HPI Physical Exam Physical Exam Vital Signs Vital Signs - First Documented 11/20/21 11/20/21 12:10 15:38 Temp 36.9 Pulse 89 Resp 20 B/P (MAP) 103/50 (67) Pulse Ox 96 O2 Delivery Room Air Capillary Refill : Height, Weight, BMI Height: 5'3.00" Weight: 150lbs. 0oz. 68.242817nw; 20.00 BMI Method:Estimated General Appearance: No Apparent Distress, WD/WN, Chronically ill, Thin HEENT: PERRL/EOMI, Moist Mucous Membranes; No Scleral Icterus (L), No Scleral Icterus (R) Neck: Normal Inspection, Supple Respiratory: Lungs Clear, No Accessory Muscle Use, No Respiratory Distress Cardiovascular: Regular Rate, Rhythm, No Murmur Gastrointestinal: Normal Bowel Sounds, Non Tender, Soft Extremity: No Calf Tenderness, No Pedal Edema Neurologic/Psychiatric: Alert, Oriented x3 (only to major details not to any current history and asked why she was at the hospital twice), Normal Mood/Affect Results Results/Procedures Labs Laboratory Tests 11/20/21 12:14 11/21/21 05:47 Patient resulted labs reviewed. Imaging [facility], [facility]. [place], [place] NAME: DEYSI HAGER [facility] REC#: [id number] PT STATUS: REG ER : 1945 PHYSICIAN: JHONATHAN NICHOLAS ADMIT DATE: 11/20/21/ER Draft Date of Exam:11/20/21 CHEST 1 VIEW, AP/PA ONLY Indication: Decreased appetite and weakness as well as headache and chest pain. Time of Exam: 1:31 PM Correlation is made with prior chest 09/25/2021. Changes of median sternotomy and CABG are noted. Cardiac loop recorder overlies the lower left chest. Lungs are clear. No infiltrates are seen. No effusion or pneumothorax is identified. Impression: No acute cardiopulmonary process is detected. Dictated on workstation # [id number] Dict: 11/20/21 1339 Trans: 11/20/21 1340 CVB [id number] Interpreted by: SRIDHAR HERMOSILLO MD Electronically signed by: REYNALDO [place], [place] NAME: DEYSI HAGER [facility] REC#: [id number] PT STATUS: REG ER : 1945 PHYSICIAN: JHONATHAN NICHOLAS ADMIT DATE: 11/20/21/ER Draft Date of Exam:11/20/21 CT HEAD WO INDICATION: Altered mental status, hallucinations and weakness. TECHNIQUE: Multiple contiguous axial images were obtained through the brain without the use of intravenous contrast. Auto Exposure Controls were utilized during the CT exam to meet ALARA standards for radiation dose reduction. Comparison made with 09/07/2021. There are mild diffuse atrophic changes. There is no extra-axial fluid collection. No intracranial hemorrhage. No intracranial mass or mass effect. There are minimal low-density changes in deep white matter compatible with chronic ischemic change. There is no acute-appearing intracranial finding. The ventricles are normal in size and position. Calvarial windows appear unremarkable. Visualized portions of the sinuses and mastoid air cells are well aerated. IMPRESSION: Mild chronic changes with no acute intracranial abnormality. Dictated on workstation # [id number] Dict: 11/20/21 1328 Trans: 11/20/21 1332 [facility] [id number] Interpreted by: HENRIQUE ESPINAL MD Electronically signed by: [facility] [place], [place] NAME: DEYSI HAGER [facility] REC#: [id number] PT STATUS: REG ER : 1945 PHYSICIAN: JHONATHAN NICHOLAS ADMIT DATE: 11/20/21/ER Draft Date of Exam:11/20/21 ELBOW, RIGHT, 3 VIEWS Indication: Right elbow pain. Time of Exam: 1:27 PM 3 views of the right elbow were obtained and alignment is normal. Joint spaces are fairly well maintained. No fracture, dislocation or effusion is seen. IMPRESSION: No acute bony abnormality is detected. Dictated on workstation # [id number] Dict: 11/20/21 1339 Trans: 11/20/21 1341 CVB [id number] Interpreted by: SRIDHAR HERMOSILLO MD Electronically signed by: REYNALDO [place], [place] NAME: DEYSI HAGER [facility] REC#: [id number] PT STATUS: REG ER : 1945 PHYSICIAN: JHONATHAN NICHOLAS ADMIT DATE: 11/20/21/ER Draft Date of Exam:11/20/21 HIP, RIGHT, 2 VIEWS Indication: Right hip pain. Time of Exam: 1:32 PM 2 views of the right hip were obtained. Femoral acetabular alignment is normal. The femoral head and neck are intact. No fractures are seen. There is some superior joint space narrowing compatible with degenerative change. Impression: Degenerative changes. No acute bony abnormality is detected. Dictated on workstation # [id number] Dict: 11/20/21 1338 Trans: 11/20/21 1340 CVB [id number] Interpreted by: SRIDHAR HERMOSILLO MD Electronically signed by: Assessment/Plan Admission Diagnosis Acute kidney injury Admission Status: Inpatient Order (span 2 midnights) Reason for Inpatient Admission: see below Assessment and Plan Acute kidney injury Lactic acidosis Dehydration Weakness ?post COVID syndrome Continue on IVF poor oral intake patient states for weeks PT/OT CAD s/p CABG HLD HTN Continue home meds as able Hold antihypertensives due to soft BPs ?Psych disorder She appears to fill seroquel, duloxetine, remeron, ativan, and buspar attempted to call her PCP to clarify but no answer KEVIN ALCARAZ MD November 20, 2021 14:57
[2021-11-20] MEDS ORDERED: ANTACID SUSP 30 ML UDC (MYLANTA) PO PRN (15:45)
[2021-11-20] MEDS ORDERED: CALCIUM CARBONATE 500 MG (TUMS) TAB.CHEW PO PRN (15:45)
[2021-11-20] MEDS ORDERED: polyethylene glycoL POWDER 17 GM (MIRALAX) PACK PO PRN (15:45)
[2021-11-20] MEDS ORDERED: ONDANSETRON 4 MG/2 ML (SDV) Z0FRAN IV PRN (15:45)
[2021-11-20] MEDS ORDERED: ACETAMINOPHEN 325 MG TABLET PO PRN (15:45)
--- NOTE | 2021-11-20 16:09 | Occupational Therapy Eval ---
OT Evaluation-General/PLF Medical Diagnosis Admission Date November 20, 2021 at 14:10 Medical Diagnosis: acute on chronic kidney failure Onset Date: November 20, 2021 Therapy Diagnosis Therapy Diagnosis: decreased ADL status Height/Weight Height (Feet): 5 Height (Inches): 3.00 Weight (Pounds): 150 Weight (Ounces): 0 Precautions Precautions/Isolations: Airborne Isolation, Fall Prevention Referral Physician: Lupe Referral Reason: Evaluation/Treatment Medical History Pertinent Medical History: CABG, CAD, Diverticulitis, HTN, Hypothroidism Additional Medical History Surgeries: Abdominal, Bladder Surgery, CABG, Hysterectomy Sleep Apnea Currently Using CPAP: Yes (SLEEP APNEA) Currently Using BIPAP: No Coronary Artery Disease, High Cholesterol, 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 Pt c/o GHOSH and CP recent falls, 2 within last 2 weeks, most recent 4 days ago. Pt fractured low back following with [facility]. Social History Home: Single Level Current Living Status: Spouse Entry Into Home: Stairs With Railing Steps Into Home: 3 ADL-Prior Level of Function SCALE: Activities may be completed with or without assistive devices. 0-Nvkaoouaxi-drvixqe completes the activity by him/herself with no assistance from a helper. 5-Set-up or Clean-up Assistance-helper sets up or cleans up; patient completes activity. [place] assists only prior to or following the activity. 4-Supervision or Touching Assistance-helper provides verbal cues and/or touching/steadying and/or contact guard assistance as patient completes activity. Assistance may be provided throughout the activity or intermittently. 3-Partial/Moderate Assistance-helper does LESS THAN HALF the effort. [place] lifts, holds or supports trunk or limbs, but provides less than half the effort. 2-Substantial/Maximal Assistance-helper does MORE THAN HALF the effort. [place] lifts or holds trunk or limbs and provides more than half the effort. 0-Btiiwonby-gpdapc does ALL the effort. Patient does none of the effort to complete the activity. Or, the assistance of 2 or more helpers is required for the patient to complete the activity. If activity was not attempted, code reason: 7-Patient Refused. 9-Not Applicable-not attempted and the patient did not perform the activity before the current illness, exacerbation or injury. 10-Not Attempted due to Environmental Limitations-(lack of equipment, weather restraints, etc.). 88-Not Attempted due to Medical Conditions or Safety Concerns. ADL PLOF Comments Pt reports using a walker for functional mobility, requires minimal assistance with ADLs. She completes sponge baths only. Pt did not provide information as to what she requires assistance with or why she only performs sponge baths. Self Care: Needed Some Help OT Current Status Subjective Pt in bed, agreeable to OT Tx. initially declines pain at EOB, but then reports pain in low back and LEs, does not verbalize pain rating. Mental Status/Objective Patient Orientation: Person, Confused Attachments: Fernando Catheter Current Upper Extremity ROM WFL Upper Extremity Strength grossly 3/5 ADL-Treatment Toileting Hygiene (QC): 1 (catheter) Other Treatments Pt laying in bed, transferred supine to sit EOB with SBA. Pt stood from EOB, CGA, able to stand ~1 minute. Pt c/o dizziness, sat back on EOB. Pt declined further stands or functional mobility, requesting to lay back down. Pt also declined ADLs at this time. Pt transferred supine, independently. OT educated pt about OT POC, she verbalized understanding. Post tx, pt in bed, call light in reach and all needs met. Education OT Patient Education: Correct positioning, Energy conservation, Modified ADL techniques, Progress toward Goal/Update tx plan, Purpose of tx/functional activities Teaching Recipient: Patient Teaching Methods: Discussion Response to Teaching: Verbalize Understanding OT Halfway Goals Halfway Goals Time Frame: December 01, 2021 Eating (QC): 6 Oral Hygiene (QC): 5 Toileting Hygiene (QC): 4 Shower/Bathe Self (QC): 3 Upper Body Dressing (QC): 5 Lower Body Dressing (QC): 4 On/Off Footwear (QC): 3 Additional Goals: 1-Demonstrate ADL Tasks, 2-Verbalize Understanding, 3- ImproveStrength/Katiana 1=Demonstrate adherence to instructed precautions during ADL tasks. 2=Patient will verbalize/demonstrate understanding of assistive devices/modifications for ADL. 3=Patient will improve strength/tolerance for activity to enable patient to perform ADL's. OT Education/Plan Problem List/Assessment Assessment: Decreased Activ Tolerance, Decreased Safety Aware, Decreased UE Strength, Impaired Funct Balance, Impaired I ADL's, Impaired Self-Care Skills Pt would benefit from skilled OT Services in order to increase BUE strength and activity tolerance, and increase safety and independence with ADLs and functional mobility, in order to maximize LOF for safe return home with spouse. Discharge Recommendations Plan/Recommendations: Continue POC Treatment Plan/Plan of Care Patient would benefit from OT for education, treatment and training to promote independence in ADL's, mobility, safety and/or upper extremity function for ADL's. Plan of Care: ADL Retraining, Functional Mobility, UE Funct Exercise/Act Treatment Duration: December 01, 2021 Frequency: 3 times per week (3-5 times per week) Rehab Potential: Fair Time/GCodes Start Time: 15:50 Stop Time: 16:00 Total Time Billed (hr/min): 10 Billed Treatment Time 1, ASTRID RUIZ OT November 20, 2021 16:09
--- NOTE | 2021-11-20 16:11 | Physical Therapy Evaluation ---
PT Evaluation-General Medical Diagnosis Admission Date November 20, 2021 at 14:10 Medical Diagnosis: acute on chronic kidney failure Onset Date: November 20, 2021 Therapy Diagnosis Therapy Diagnosis: impaired mobility, strength, endurance Height/Weight Height (Feet): 5 Height (Inches): 3.00 Weight (Pounds): 150 Weight (Ounces): 0 Precautions Precautions/Isolations: Airborne Isolation, Fall Prevention Referral Physician: Lupe Reason for Referral: Evaluation/Treatment Medical History Pertinent Medical History: CABG, CAD, Diverticulitis, HTN, Hypothroidism Additional Medical History Past Medical History Surgeries: Yes (Hiatal Hernia, Breast BX, Bladder surgery x 3 (had mesh sling, tie up, ) Abdominal, Bladder Surgery, CABG, Hysterectomy Respiratory: Yes Sleep Apnea Currently Using CPAP: Yes (SLEEP APNEA) Currently Using BIPAP: No Cardiac: Yes Coronary Artery Disease, High Cholesterol, Hypertension Neurological: No 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 Disorders: No 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 7-Kxgzwfkiaf-vqobyov completes the activity by him/herself with no assistance from a helper. 5-Set-up or Clean-up Assistance-helper sets up or cleans up; patient completes activity. [place] assists only prior to or following the activity. 4-Supervision or Touching Assistance-helper provides verbal cues and/or touching/steadying and/or contact guard assistance as patient completes activity. Assistance may be provided throughout the activity or intermittently. 3-Partial/Moderate Assistance-helper does LESS THAN HALF the effort. [place] lifts, holds or supports trunk or limbs, but provides less than half the effort. 2-Substantial/Maximal Assistance-helper does MORE THAN HALF the effort. [place] lifts or holds trunk or limbs and provides more than half the effort. 0-Bgfvsvjbd-sqlczd does ALL the effort. Patient does none of the effort to compl ete the activity. Or, the assistance of 2 or more helpers is required for the patient to complete the activity. If activity was not attempted, code reason: 7-Patient Refused. 9-Not Applicable-not attempted and the patient did not perform the activity before the current illness, exacerbation or injury. 10-Not Attempted due to Environmental Limitations-(lack of equipment, weather restraints, etc.). 88-Not Attempted due to Medical Conditions or Safety Concerns. Bed Mobility: 6 Transfers (B,C,W/C): 6 Gait: 6 Stairs: 6 Indoor Mobility (Ambulation): Independent Stairs: Independent Prior Devices Use: Walker PT Evaluation-Current Subjective Patient in bed pre tx, agrees to PT, has no complaints of pain at rest. Pt/Family Goals to be independent at home Objective Patient Orientation: Person, Place, Situation Attachments: Fernando Catheter ROM/Strength ROM Lower Extremities WNL Strength Lower Extremities grossly 4/5 BLE, some difficulty testing due to back pain and pain in legs from falls Sensory Vision: Functional Hearing: Functional Sensation Right Lower Extremit: Intact Sensation Left Lower Extremity: Intact Transfers Roll Left to Right (QC): 6 Sit to Lying (QC): 6 Lying to Sitting/Side of Bed(Q: 6 Sit to Stand (QC): 4 Patient stood once for about 1 minute and was slightly dizzy, said she needed to sit back down and wanted to lay back down. Balance Sitting Static: Normal Sitting Dynamic: Normal Standing Static: Fair Standing Dynamic: Fair Assessment/Needs Patient in bed post tx with nurse call, phone tray, all needs met. BP testing for orthostatic hypotension should be performed next time. Patient was fairly anxious during tx. 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 Film Goals PT Manager Film Goals Time Frame: November 27, 2021 Roll Left & Right (QC): 6 Sit to Lying (QC): 6 Lying-Sitting on Side/Bed(QC): 6 Sit to Stand (QC): 6 Chair/Enn-lt-Fghqg Xfer(QC): 6 Walk 10 feet (QC): 6 Walk 50ft with 2 Turns (QC): 6 PT Plan Problem List Problem List: Activity Tolerance, Functional Strength, Safety, Balance, Gait, Transfer, ROM Treatment/Plan Treatment Plan: Continue Plan of Care Treatment Plan: Education, Functional Activity Katiana, Functional Strength, Group Therapy, Gait, Safety, Therapeutic Exercise, Transfers Treatment Duration: November 27, 2021 Frequency: 6 times per week Estimated Hrs Per Day: .25 hour per day Patient and/or Family Agrees t: Yes Safety Risks/Education Patient Education: Correct Positioning, Safety Issues Teaching Recipient: Patient Teaching Methods: Demonstration, Discussion Response to Teaching: Reinforcement Needed Discharge Recommendations Plan Patient will perform bed mobility and transfer training, balance and endurance training, functional strengthening, stair training, gait training, and education, to improve functional mobility and independence at home. Therapy Discharge Recommendati: Scheduled Assistance, Home & Family, Post Acute PT Time/GCodes Time In: 1550 Time Out: 1600 Total Billed Treatment 1 visit AYANNA WALLACE PT November 20, 2021 16:11
[2021-11-20 16:39] VITALS: BP 99/53
[2021-11-20] MEDS: NS W/KCL 20 MEQ/L 1,000 ML IV SCH ×2 (16:52→21:18)
[2021-11-20] MEDS ORDERED: hydrOXYzine (ATARAX) 10 MG TAB PO PRN (18:45)
[2021-11-20 20:51] VITALS: BP 105/69
[2021-11-20] MEDS: MELATONIN 3 MG TABLET PO PRN (21:17)
[2021-11-20] MEDS: QUEtiapine 25 MG (SEROquel) TAB IMMEDIATE RELEASE PO SCH (21:17)
[2021-11-20] MEDS: busPIRone 15 MG (BUSPAR) TABLET PO SCH (21:17)
[2021-11-20] MEDS ORDERED: POTASSIUM CHLORIDE INJ 20 MEQ in NS IV 1000 ML 1,000 ML IV SCH (22:00)
[2021-11-21 00:13] VITALS: BP 100/64
[2021-11-21 04:35] VITALS: BP 115/53
[2021-11-21 06:00] LABS: HEMATOCRIT 33 % (35-52); HEMOGLOBIN 10.8 g/dL (11.5-16.0); MEAN CORPUSCULAR HEMOGLOBIN 31 pg (25-34); MEAN CORPUSCULAR HGB CONC 33 g/dL (32-36); MEAN CORPUSCULAR VOLUME 94 fL (80-99); MEAN PLATELET VOLUME 11.3 fL (9.0-12.2); PLATELET COUNT 199 10^3/uL (130-400); WHITE BLOOD COUNT 3.8 10^3/uL (4.3-11.0)
[2021-11-21 06:07] LABS: POTASSIUM 3.3 MMOL/L (3.6-5.0)
[2021-11-21 06:08] LABS: CALCIUM 8.3 MG/DL (8.5-10.1)
[2021-11-21 06:12] LABS: CREATININE SERUM 2.08 MG/DL (0.60-1.30)
[2021-11-21 07:25] VITALS: BP 112/56
[2021-11-21] MEDS: busPIRone 15 MG (BUSPAR) TABLET PO SCH ×3 (08:30→21:12)
[2021-11-21] MEDS: QUEtiapine 25 MG (SEROquel) TAB IMMEDIATE RELEASE PO SCH ×2 (08:30→21:12)
--- NOTE | 2021-11-21 10:01 | Physical Therapy Daily Note ---
PT Daily Note-Current Subjective Patient agrees to PT. Patient repeats the question, "I don't even know why I'm here. How did I get here?" Family present. Mental Status Patient Orientation: Confused Transfers SCALE: Activities may be completed with or without assistive devices. 0-Oqytwzngzi-ddoxhza completes the activity by him/herself with no assistance from a helper. 5-Set-up or Clean-up Assistance-helper sets up or cleans up; patient completes activity. [place] assists only prior to or following the activity. 4-Supervision or Touching Assistance-helper provides verbal cues and/or touching/steadying and/or contact guard assistance as patient completes activity. Assistance may be provided throughout the activity or intermittently. 3-Partial/Moderate Assistance-helper does LESS THAN HALF the effort. [place] lifts, holds or supports trunk or limbs, but provides less than half the effort. 2-Substantial/Maximal Assistance-helper does MORE THAN HALF the effort. [place] lifts or holds trunk or limbs and provides more than half the effort. 1-Prbyccnmu-lrimxf does ALL the effort. Patient does none of the effort to complete the activity. Or, the assistance of 2 or more helpers is required for the patient to complete the activity. If activity was not attempted, code reason: 7-Patient Refused. 9-Not Applicable-not attempted and the patient did not perform the activity before the current illness, exacerbation or injury. 10-Not Attempted due to Environmental Limitations-(lack of equipment, weather restraints, etc.). 88-Not Attempted due to Medical Conditions or Safety Concerns. Lying to Sitting/Side of Bed(Q: 6 Sit to Stand (QC): 4 Chair/Gqj-cx-Kbxev Xfer(QC): 4 CGA for safety Gait Training Distance: 250' Walk 10 feet (QC): 4 Walk 50 ft with 2 Turns(QC): 4 Walk 150 ft (QC): 4 Gait Assistive Device: FWW CGA for safety/steady gait sequence Treatments Orthostatic BP taken supine 115/55; sit 114/58; stand 122/83 Assessment Patient up in recliner with chair alarm activated and family present. Patient tolerated increase in activity well. PT [facility] Goals [facility] Goals PT [facility] Goals Time Frame: November 27, 2021 Roll Left & Right (QC): 6 Sit to Lying (QC): 6 Lying-Sitting on Side/Bed(QC): 6 Sit to Stand (QC): 6 Chair/Fhi-ik-Viklc Xfer(QC): 6 Walk 10 feet (QC): 6 Walk 50ft with 2 Turns (QC): 6 PT Plan Treatment/Plan Treatment Plan: Continue Plan of Care Treatment Plan: Education, Functional Activity Katiana, Functional Strength, Group Therapy, Gait, Safety, Therapeutic Exercise, Transfers Treatment Duration: November 27, 2021 Frequency: 6 times per week Estimated Hrs Per Day: .25 hour per day Patient and/or Family Agrees t: Yes Time/GCodes Time In: 835 Time Out: 852 Total Billed Treatment Time: 17 Total Billed Treatment 1 visit FA 17 min POOJA GARCIA PT November 21, 2021 10:01
--- NOTE | 2021-11-21 10:13 | Occupational Ther Daily Note ---
OT Current Status-Daily Note Subjective Pt alert, sitting in recliner. Family present in room. Pt agrees to therapy. Dizziness reported by pt after standing for ~30 sec. Mental Status/Objective Patient Orientation: Person, Place, Time, Situation Attachments: Fernando Catheter, IV ADL-Treatment After supplies gathered pt able to complete oral care sitting in recliner. Pt declines to ambulate to sink to complete oral care. Pt washed face after supplies gathered. Therapy Code Descriptions/Definitions Functional [place] Measure: 0=Not Assessed/NA 4=Minimal Assistance 1=Total Assistance 5=Supervision or Setup 2=Maximal Assistance 6=Modified [place] 3=Moderate Assistance 7=Complete IndependenceSCALE: Activities may be completed with or without assistive devices. 6-Idirtsxikk-lulqbko completes the activity by him/herself with no assistance from a helper. 5-Set-up or Clean-up Assistance-helper sets up or cleans up; patient completes activity. [place] assists only prior to or following the activity. 4-Supervision or Touching Assistance-helper provides verbal cues and/or touching/steadying and/or contact guard assistance as patient completes activity. Assistance may be provided throughout the activity or intermittently. 3-Partial/Moderate Assistance-helper does LESS THAN HALF the effort. [place] lifts, holds or supports trunk or limbs, but provides less than half the effort. 2-Substantial/Maximal Assistance-helper does MORE THAN HALF the effort. [place] lifts or holds trunk or limbs and provides more than half the effort. 2-Awdiysuri-kdcbwk does ALL the effort. Patient does none of the effort to complete the activity. Or, the assistance of 2 or more helpers is required for the patient to complete the activity. If activity was not attempted, code reason: 7-Patient Refused. 9-Not Applicable-not attempted and the patient did not perform the activity before the current illness, exacerbation or injury. 10-Not Attempted due to Environmental Limitations-(lack of equipment, weather restraints, etc.). 88-Not Attempted due to Medical Conditions or Safety Concerns. Oral Hygiene (QC): 5 Other Treatment Pt able to sit <--> stand with CGA for safety, 2x's. No LOB with marching in place though pt c/o dizziness. Cued pt to complete PLB and dizziness decreased. After therapy, pt sitting in recliner with call light/phone in reach. Family present. Safety measures in place. OT Fci Goals Fci Goals Time Frame: December 01, 2021 Eating (QC): 6 Oral Hygiene (QC): 5 Toileting Hygiene (QC): 4 Shower/Bathe Self (QC): 3 Upper Body Dressing (QC): 5 Lower Body Dressing (QC): 4 On/Off Footwear (QC): 3 Additional Goals: 1-Demonstrate ADL Tasks, 2-Verbalize Understanding, 3-Impr oveStrength/Katiana 1=Demonstrate adherence to instructed precautions during ADL tasks. 2=Patient will verbalize/demonstrate understanding of assistive devices/modifications for ADL. 3=Patient will improve strength/tolerance for activity to enable patient to perform ADL's. OT Education/Plan Problem List/Assessment Assessment: Decreased Activ Tolerance, Decreased Safety Aware, Decreased UE Strength, Impaired Self-Care Skills Pt would benefit from skilled OT Services in order to increase BUE strength and activity tolerance, and increase safety and independence with ADLs and functional mobility, in order to maximize LOF for safe return home with spouse. Discharge Recommendations Plan/Recommendations: Continue POC Treatment Plan/Plan of Care Patient would benefit from OT for education, treatment and training to promote independence in ADL's, mobility, safety and/or upper extremity function for ADL's. Plan of Care: ADL Retraining, Functional Mobility, UE Funct Exercise/Act Treatment Duration: December 01, 2021 Frequency: 3 times per week (3-5 times per week) Rehab Potential: Fair Time/GCodes Start Time: 09:48 Stop Time: 10:04 Total Time Billed (hr/min): 16 Billed Treatment Time 1 visit-FA 1 (16 min) CHANG VERDUZCO November 21, 2021 10:13
[2021-11-21 11:26] VITALS: BP_SYST 115; BP_SYST 97; BP_DIAS 47; BP_DIAS 65
[2021-11-21] MEDS ORDERED: FURO40TA4 PO (11:59)
[2021-11-21] MEDS ORDERED: POTA10CA43 PO (11:59)
[2021-11-21] MEDS ORDERED: HYDR50CA3 PO (11:59)
[2021-11-21] MEDS: NS W/KCL 20 MEQ/L 1,000 ML IV SCH ×2 (12:00→21:26)
--- NOTE | 2021-11-21 12:51 | Progress Note - Hospitalist ---
Subjective HPI/CC On Admission Date Seen by Provider: November 21, 2021 Patient is 76-year-old female who presented to the emergency department due to altered mental status. She is unable to tell me why she is here. She states that she has back pain since March. Upon review of records it seems that this is a much shorter history and roughly just 1 month ago. She was referred to industrial specialist by her PCP but at that time had not made an appointment and she is unsure if she is ever seen the back doctor. Review of ER note states that she was brought in for altered mental status and confusion with possible hallucinations. When I informed her of this she smiled and said "oh yeah that is my ." He was found to have an acute kidney injury and is admitted for further management. Subjective/Events-last exam Pt reports feeling much better. Family at bedside and agree that she seems better. states that he does not feel he can care for her properly at home and that he was told by home health that he couldn't either. Focused Exam Lactate Level 11/20/21 12:57: Lactic Acid Level 4.10*H 11/20/21 15:10: Lactic Acid Level 1.28 Objective Exam Vital Signs Vital Signs Date Time Temp Pulse Resp B/P (MAP) Pulse Ox O2 Delivery O2 Flow Rate FiO2 11/21/21 11:26 36.3 72 16 115/65 (82) 100 Room Air Capillary Refill : General Appearance: No Apparent Distress, Chronically ill Respiratory: Lungs Clear, No Respiratory Distress Cardiovascular: Regular Rate, Rhythm, No Murmur Results/Procedures Lab Laboratory Tests 11/21/21 05:47 Patient resulted labs reviewed. Assessment/Plan Assessment and Plan Assess & Plan/Chief Complaint Acute kidney injury Lactic acidosis Dehydration Weakness ?post COVID syndrome Weight loss Continue on IVF Creatinine improving PT/OT Semiconductor Wafers Tester saw patient and recommended ensure clear as she cannot tolerate dairy nutrition services aide for likely placement CAD s/p CABG HLD HTN Continue home meds as able Hold antihypertensives due to soft BPs ?Psych disorder She appears to fill seroquel, duloxetine, remeron, ativan, and buspar attempted to call her PCP to clarify but no answer DVT ppx: KEVIN Cohen MD November 21, 2021 12:51
[2021-11-21] MEDS ORDERED: ENOXAPARIN 40 MG/0.4 ML (LOVENOX) SYR SQ SCH (13:00)
[2021-11-21] MEDS: hydrOXYzine (VISTARIL/ATARAX) 25 MG capsule/tablet PO PRN ×2 (14:47→16:14)
[2021-11-21] MEDS: ENOXAPARIN INJECTION 30 MG/0.3 ML SYR SC SCH (14:47)
[2021-11-21 16:13] VITALS: BP 109/57
[2021-11-21 20:00] VITALS: BP 117/58
[2021-11-21] MEDS ORDERED: NON-FORMULARY MEDICATION 1 EA EA (Duloxetine HCl 60 MG) PO SCH (21:00)
[2021-11-21] MEDS ORDERED: OMEPRAZOLE 20 MG (PriLOSEC) CAP NON-FORMULARY PO SCH (21:00)
[2021-11-21] MEDS: DULoxetine 30 MG (CYMBALTA) CAP PO SCH (21:12)
[2021-11-21] MEDS: PANTOPRAZOLE 20 MG TABLET (PROTONIX) PO SCH (21:13)
[2021-11-21] MEDS: MELATONIN 3 MG TABLET PO PRN (21:14)
[2021-11-22] VITALS (7 sets, daily range): BP systolic 116–125; BP diastolic 54–64
[2021-11-22] MEDS: LEVOTHYROXINE 88 MCG (LEVOTHORID) TAB PO SCH (05:54)
[2021-11-22] MEDS: NS W/KCL 20 MEQ/L 1,000 ML IV SCH ×2 (07:55→17:44)
--- NOTE | 2021-11-22 09:39 | Progress Note - Hospitalist ---
Subjective HPI/CC On Admission Date Seen by Provider: November 22, 2021 Patient is 76-year-old female who presented to the emergency department due to altered mental status. She is unable to tell me why she is here. She states that she has back pain since March. Upon review of records it seems that this is a much shorter history and roughly just 1 month ago. She was referred to pharmacy retail support specialist by her PCP but at that time had not made an appointment and she is unsure if she is ever seen the back doctor. Review of ER note states that she was brought in for altered mental status and confusion with possible hallucinations. When I informed her of this she smiled and said "oh yeah that is my ." He was found to have an acute kidney injury and is admitted for further management. Subjective/Events-last exam Pt reports doing well. Refused meds this morning because she wasn't sure if I had ordered them. Now agreeable to talking them. Focused Exam Lactate Level 11/20/21 12:57: Lactic Acid Level 4.10*H 11/20/21 15:10: Lactic Acid Level 1.28 Objective Exam Vital Signs Vital Signs Date Time Temp Pulse Resp B/P (MAP) Pulse Ox O2 Delivery O2 Flow Rate FiO2 11/22/21 08:04 Room Air 11/22/21 07:18 36.8 91 18 124/63 (83) 97 Capillary Refill : General Appearance: No Apparent Distress, WD/WN Respiratory: Lungs Clear, No Respiratory Distress Cardiovascular: Regular Rate, Rhythm, Systolic Murmur Neurologic/Psychiatric: Alert, Oriented x3 Results/Procedures Lab Patient resulted labs reviewed. Assessment/Plan Assessment and Plan Assess & Plan/Chief Complaint Acute kidney injury Lactic acidosis Dehydration Weakness ?post COVID syndrome Weight loss Continue on IVF, decrease rate Creatinine pending from today PT/OT Fish Frog Or Oyster Farmer saw patient and recommended ensure clear as she cannot tolerate dairy- doing well with these technical services consultant for likely placement CAD s/p CABG HLD HTN Continue home meds as able Hold antihypertensives due to soft BPs Depression She appears to fill seroquel, duloxetine, remeron, ativan, and buspar attempted to call her PCP to clarify but no answer DVT ppx: KEVIN Cohen MD November 22, 2021 09:39
[2021-11-22] MEDS: DULoxetine 30 MG (CYMBALTA) CAP PO SCH ×2 (10:03→20:09)
[2021-11-22] MEDS: busPIRone 15 MG (BUSPAR) TABLET PO SCH ×3 (10:03→20:10)
[2021-11-22] MEDS: ASPIRIN E.C. 81 MG (ECOTRIN) TAB PO SCH (10:03)
[2021-11-22] MEDS: CLOPIDOGREL 75 MG (PLAVIX) TABLET PO SCH (10:04)
[2021-11-22] MEDS: QUEtiapine 25 MG (SEROquel) TAB IMMEDIATE RELEASE PO SCH ×2 (10:06→20:09)
[2021-11-22 10:13] LABS: HEMATOCRIT 34 % (35-52); HEMOGLOBIN 11.1 g/dL (11.5-16.0); MEAN CORPUSCULAR HEMOGLOBIN 31 pg (25-34); MEAN CORPUSCULAR HGB CONC 33 g/dL (32-36); MEAN CORPUSCULAR VOLUME 96 fL (80-99); MEAN PLATELET VOLUME 10.6 fL (9.0-12.2); PLATELET COUNT 218 10^3/uL (130-400); WHITE BLOOD COUNT 4.5 10^3/uL (4.3-11.0)
[2021-11-22 10:31] LABS: CALCIUM 8.5 MG/DL (8.5-10.1); CREATININE SERUM 1.52 MG/DL (0.60-1.30); POTASSIUM 3.6 MMOL/L (3.6-5.0)
--- NOTE | 2021-11-22 11:03 | Occ Therapy Progress Note ---
Therapy Progress Note Pt family states that pt is drowsy today and is having trouble staying aware at this time. Pt family requests therapy to come back. Will attempt at next available time. [id number] CHANG VERDUZCO November 22, 2021 11:03
--- NOTE | 2021-11-22 11:59 | Physical Therapy Progress Note ---
Therapy Progress Note Pt declines tx this morning. Family present. STONE ROUGHER will recheck this afternoon to try tx. EDU BUSTILLOS STONE ROUGHER November 22, 2021 11:59
--- NOTE | 2021-11-22 12:11 | ST Cognitive Linguistic Eval ---
Speech Evaluation-General Medical Diagnosis Acute on Chronic Kidney Failure Onset Date: November 20, 2021 Therapy Diagnosis Therapy Diagnosis: Neurocognitive Impairment Precautions Precautions: Fall Precautions/Isolations: Fall Prevention, Standard Precautions Referral Referring Physician: Dr. Andrade Reason for Referral: Evaluation/Treatment Medical History Pertinent Medical History: CABG, CAD, Diverticulitis, HTN, Hypothroidism Current History The patient is a 76-year-old female with a past medical history of anxiety, depression, CABG, sleep apnea, CAD, high cholesterol, HTN, renal failure, and arthritis, who presented to [facility] due to altered mental status. 11/20/21: Mild chronic changes with no acute intracranial abnormality. Reviewed History: Yes Social History Current Living Status: Spouse Speech PLF-Current Status Prior Level of Function The patient's prior level of function is unknown to the clinician. Per patient's , the patient has been experiencing hallucinations. Subjective The patient was seated upright in her recliner, awake and alert upon entrance to her room by the clinician. The patient greeted the clinician appropriately and was agreeable to participation in the cognitive linguistic evaluation. The patient has her and her granddaughter present at bedside. Language Eval: Auditory Comprehends Simple Yes/No Ques: Functional Indent/Objects Multiple Patel: Functional Ident/Pics in Multiple Patel: Functional Follows 1-Step Commands: Functional Follows Complex Directions: Moderate Follows General Conversations: Mild Language Eval: Verbal Language Completes Spontaneous Greeting: Functional Produces Auto, Serial Info: Functional Imitates Simple Words/Phrases: Functional Word Finding: Moderate Requests Basic Needs: Functional States Basic Personal Info: Functional Expresses Complex Ideas: Moderate Cognitive Patient Orientation The patient is oriented to date and location. The patient stated the year was "2023." Objective Cognitive Domain Attention: Moderate Memory: Moderate Problem Solving: Moderate Executive Functions: Moderate Composite Severity Rating: Moderate Objective Formal/Standardized Tests [facility] Mental Status Exam (UMS) Results Full results of the evaluation could not be completed, as the assessment was terminated prior to completion due to increased patient anxiety. Oral Motor/Speech Production The patient does not display dysarthria or apraxia of speech. The patient is 100% intelligible in known and unknown contexts. Impression The patient demonstrated a suspected moderate cognitive impairment, most notably in the areas of memory, problem solving, and executive functioning. The evaluation was unable to be completed in whole on this date, as the patient displayed increased anxiety throughout the assessment requiring maximum encouragement for limited responses. The patient does seem somewhat aware of her deficits which does cause an increase in anxiousness to occur. Speech Short Term Goals Short Term Goals Short Term Goals 1. The patient will complete the cognitive linguistic screening with mild clinician verbal prompting. Time Frame-STG: Two Days. Speech Longterm Goals Customer Operations Intern Goals 1. The patient will demonstrate increased cognitive linguistic skills for safe discharge to the least restrictive environment. Time Frame: One Week. Speech-Plan Treatment Plan Speech Therapy Treatment Plan: Continue Plan of Care Frequency: 2 times per week Estimated Hrs Per Day: .25 hour per day Rehab Potential: Fair Pt/Family Agrees to Plan: Yes Safety Risks/Education Teaching Recipient: Patient, Family Teaching Methods: Discussion Response to Teaching: Verbalize Understanding, Reinforcement Needed Education Topics Provided: Speech Pathology Plan of Care Time Speech Therapy Time In: 11:00 Speech Therapy Time Out: 11:21 Total Billed Time: 21 Billed Treatment Time 1, SPSNDCOMP ANN Thomas November 22, 2021 12:10
[2021-11-22] MEDS: ENOXAPARIN INJECTION 30 MG/0.3 ML SYR SC SCH (13:50)
--- NOTE | 2021-11-22 14:03 | Occupational Ther Daily Note ---
OT Current Status-Daily Note Subjective Pt alert, sitting in recliner. Pt minimally ate her lunch. Pt agrees to therapy. No c/o pain. Pt c/o back hurting at end of session, did not rate. Nrsg in room at end of session. Mental Status/Objective Patient Orientation: Person, Place, Time, Situation Attachments: Fernando Catheter, IV ADL-Treatment SBA for sit to stand and ambulation using FWW to bathroom. Pt stood at sink and complete oral care independently. Pt then ambulated back to room and transferred into bed with SBA. After session, pt lying in bed with call lgiht/phone in reach. Safety measures in place. Nrsg in room. Therapy Code Descriptions/Definitions Functional [place] Measure: 0=Not Assessed/NA 4=Minimal Assistance 1=Total Assistance 5=Supervision or Setup 2=Maximal Assistance 6=Modified [place] 3=Moderate Assistance 7=Complete IndependenceSCALE: Activities may be completed with or without assistive devices. 3-Xcazrnfuwm-hnrbeso completes the activity by him/herself with no assistance from a helper. 5-Set-up or Clean-up Assistance-helper sets up or cleans up; patient completes activity. [place] assists only prior to or following the activity. 4-Supervision or Touching Assistance-helper provides verbal cues and/or touching/steadying and/or contact guard assistance as patient completes activity. Assistance may be provided throughout the activity or intermittently. 3-Partial/Moderate Assistance-helper does LESS THAN HALF the effort. [place] lifts, holds or supports trunk or limbs, but provides less than half the effort. 2-Substantial/Maximal Assistance-helper does MORE THAN HALF the effort. [place] lifts or holds trunk or limbs and provides more than half the effort. 1-Relhdsolt-qnoxqx does ALL the effort. Patient does none of the effort to complete the activity. Or, the assistance of 2 or more helpers is required for the patient to complete the activity. If activity was not attempted, code reason: 7-Patient Refused. 9-Not Applicable-not attempted and the patient did not perform the activity before the current illness, exacerbation or injury. 10-Not Attempted due to Environmental Limitations-(lack of equipment, weather restraints, etc.). 88-Not Attempted due to Medical Conditions or Safety Concerns. Oral Hygiene (QC): 6 On/Off Footwear: 5 (Set up only to don/doff footwear) OT Aircraft Inspection Record Clerk Goals Intermediate Goals Time Frame: December 01, 2021 Eating (QC): 6 Oral Hygiene (QC): 5 Toileting Hygiene (QC): 4 Shower/Bathe Self (QC): 3 Upper Body Dressing (QC): 5 Lower Body Dressing (QC): 4 On/Off Footwear (QC): 3 Additional Goals: 1-Demonstrate ADL Tasks, 2-Verbalize Understanding, 3- ImproveStrength/Katiana 1=Demonstrate adherence to instructed precautions during ADL tasks. 2=Patient will verbalize/demonstrate understanding of assistive devices/modifications for ADL. 3=Patient will improve strength/tolerance for activity to enable patient to perform ADL's. OT Education/Plan Problem List/Assessment Assessment: Decreased Activ Tolerance, Decreased Safety Aware, Impaired Cognition Pt would benefit from skilled OT Services in order to increase BUE strength and activity tolerance, and increase safety and independence with ADLs and functional mobility, in order to maximize LOF for safe return home with spouse. Discharge Recommendations Plan/Recommendations: Continue POC Treatment Plan/Plan of Care Patient would benefit from OT for education, treatment and training to promote independence in ADL's, mobility, safety and/or upper extremity function for ADL's. Plan of Care: ADL Retraining, Functional Mobility, UE Funct Exercise/Act Treatment Duration: December 01, 2021 Frequency: 3 times per week (3-5 times per week) Rehab Potential: Fair Time/GCodes Start Time: 13:40 Stop Time: 13:55 Total Time Billed (hr/min): 15 Billed Treatment Time 1 visit-ADL 1 (15 min) CHANG VERDUZCO November 22, 2021 14:03
--- NOTE | 2021-11-22 14:17 | Physical Therapy Daily Note ---
PT Daily Note-Current Subjective Pt alert, sitting in recliner. Pt minimally ate her lunch. Pt agrees to therapy. No c/o pain. Pt c/o back hurting at end of session, did not rate. Nrsg in room at end of session. Pain Location: Lower Location Body Site: Back Pain Description: Ache Comment: Reports but not rated Mental Status Patient Orientation: Person, Confused Attachments: Fernando Catheter, IV Transfers SCALE: Activities may be completed with or without assistive devices. 9-Wqwljbdmle-iomthcq completes the activity by him/herself with no assistance from a helper. 5-Set-up or Clean-up Assistance-helper sets up or cleans up; patient completes activity. [place] assists only prior to or following the activity. 4-Supervision or Touching Assistance-helper provides verbal cues and/or touching/steadying and/or contact guard assistance as patient completes activity. Assistance may be provided throughout the activity or intermittently. 3-Partial/Moderate Assistance-helper does LESS THAN HALF the effort. [place] li fts, holds or supports trunk or limbs, but provides less than half the effort. 2-Substantial/Maximal Assistance-helper does MORE THAN HALF the effort. [place] lifts or holds trunk or limbs and provides more than half the effort. 1-Ksmdrkfpp-vwmbav does ALL the effort. Patient does none of the effort to complete the activity. Or, the assistance of 2 or more helpers is required for the patient to complete the activity. If activity was not attempted, code reason: 7-Patient Refused. 9-Not Applicable-not attempted and the patient did not perform the activity before the current illness, exacerbation or injury. 10-Not Attempted due to Environmental Limitations-(lack of equipment, weather restraints, etc.). 88-Not Attempted due to Medical Conditions or Safety Concerns. Sit to Stand (QC): 5 Weight Bearing Full Weight Bearing Full Weight Bearing Gait Training Does the Patient Walk?: Yes Distance: 15' x2 Walk 10 feet (QC): 5 Gait Persons Needed: 1 Treatments SBA for sit to stand and ambulation using FWW to bathroom. Pt stood at sink and complete oral care independently. Pt then ambulated back to room and transferred into bed with SBA. After session, pt lying in bed with call lgiht/phone in reach. Safety measures in place. Nrsg in room. Assessment Current Status: Fair Progress Pt is confused and tires easily. Pt is limited by these during tx. PT Expander Machine Operator Goals Shelter Goals PT Shelter Goals Time Frame: November 27, 2021 Roll Left & Right (QC): 6 Sit to Lying (QC): 6 Lying-Sitting on Side/Bed(QC): 6 Sit to Stand (QC): 6 Chair/Tko-xo-Zuzio Xfer(QC): 6 Walk 10 feet (QC): 6 Walk 50ft with 2 Turns (QC): 6 PT Plan Problem List Problem List: Activity Tolerance, Functional Strength Treatment/Plan Treatment Plan: Continue Plan of Care Treatment Plan: Education, Functional Activity Katiana, Functional Strength, Group Therapy, Gait, Safety, Therapeutic Exercise, Transfers Treatment Duration: November 27, 2021 Frequency: 6 times per week Estimated Hrs Per Day: .25 hour per day Patient and/or Family Agrees t: Yes Safety Risks/Education Patient Education: Correct Positioning, Safety Issues Teaching Recipient: Patient Teaching Methods: Discussion Response to Teaching: Verbalize Understanding Time/GCodes Time In: 1340 Time Out: 1355 Total Billed Treatment Time: 15 Total Billed Treatment 1, FA (15m) EDU BUSTILLOS CLIENT REPORTING ASSOCIATE November 22, 2021 14:17
[2021-11-22] MEDS: MELATONIN 3 MG TABLET PO PRN (20:09)
[2021-11-22] MEDS: PANTOPRAZOLE 20 MG TABLET (PROTONIX) PO SCH (20:09)
[2021-11-23] MEDS: NS W/KCL 20 MEQ/L 1,000 ML IV SCH (03:45)
[2021-11-23 03:56] VITALS: BP 113/59
[2021-11-23] MEDS: LEVOTHYROXINE 88 MCG (LEVOTHORID) TAB PO SCH (05:58)
[2021-11-23 08:00] VITALS: BP 129/83
[2021-11-23 08:42] LABS: CALCIUM 8.1 MG/DL (8.5-10.1)
[2021-11-23 08:47] LABS: CREATININE SERUM 1.17 MG/DL (0.60-1.30)
--- NOTE | 2021-11-23 09:20 | Occupational Ther Daily Note ---
OT Current Status-Daily Note Subjective Pt alert, lying in bed. Pt is disoriented today from waking up shortly prior to MARRERO entering room. Pt able to state name and where she is, confused about situation why she is in the hospital. Mental Status/Objective Patient Orientation: Person, Confused, Place Attachments: Fernando Catheter, IV ADL-Treatment Pt donned socks by self after set up. SBA for sit to stand and ambulation using FWW to bathroom. Pt able to complete toilet transfer with SBA. Assist to doff/doff briefs due to Fernando catheter. Pt able to manipulate clothing over hips for toileting and cleanses self sitting on toilet. Pt stood at sink and complete oral care independently. Pt then ambulated back to room and sat in recliner with SBA. After session, pt lying in bed with call lgiht/phone in reach. Safety measures in place. Nrsg in room. Therapy Code Descriptions/Definitions Functional [place] Measure: 0=Not Assessed/NA 4=Minimal Assistance 1=Total Assistance 5=Supervision or Setup 2=Maximal Assistance 6=Modified [place] 3=Moderate Assistance 7=Complete IndependenceSCALE: Activities may be completed with or without assistive devices. 8-Cmrgbsaltm-krkohpv completes the activity by him/herself with no assistance from a helper. 5-Set-up or Clean-up Assistance-helper sets up or cleans up; patient completes activity. [place] assists only prior to or following the activity. 4-Supervision or Touching Assistance-helper provides verbal cues and/or touching/steadying and/or contact guard assistance as patient completes activity. Assistance may be provided throughout the activity or intermittently. 3-Partial/Moderate Assistance-helper does LESS THAN HALF the effort. [place] lifts, holds or supports trunk or limbs, but provides less than half the effort. 2-Substantial/Maximal Assistance-helper does MORE THAN HALF the effort. [place] lifts or holds trunk or limbs and provides more than half the effort. 0-Hctkwivms-nkhioa does ALL the effort. Patient does none of the effort to complete the activity. Or, the assistance of 2 or more helpers is required for the patient to complete the activity. If activity was not attempted, code reason: 7-Patient Refused. 9-Not Applicable-not attempted and the patient did not perform the activity before the current illness, exacerbation or injury. 10-Not Attempted due to Environmental Limitations-(lack of equipment, weather restraints, etc.). 88-Not Attempted due to Medical Conditions or Safety Concerns. Oral Hygiene (QC): 6 Lower Body Dressing (QC): 3 On/Off Footwear: 5 Toileting Hygiene (QC): 4 Toilet Transfer (QC): 4 OT [facility] Goals Recenterer Goals Time Frame: December 01, 2021 Eating (QC): 6 Oral Hygiene (QC): 5 Toileting Hygiene (QC): 4 Shower/Bathe Self (QC): 3 Upper Body Dressing (QC): 5 Lower Body Dressing (QC): 4 On/Off Footwear (QC): 3 Additional Goals: 1-Demonstrate ADL Tasks, 2-Verbalize Understanding, 3- ImproveStrength/Katiana 1=Demonstrate adherence to instructed precautions during ADL tasks. 2=Patient will verbalize/demonstrate understanding of assistive devices/modifications for ADL. 3=Patient will improve strength/tolerance for activity to enable patient to perform ADL's. OT Education/Plan Problem List/Assessment Assessment: Decreased Safety Aware, Impaired Cognition, Impaired Self-Care Skills Pt would benefit from skilled OT Services in order to increase BUE strength and activity tolerance, and increase safety and independence with ADLs and functional mobility, in order to maximize LOF for safe return home with spouse. Discharge Recommendations Plan/Recommendations: Continue POC Treatment Plan/Plan of Care Patient would benefit from OT for education, treatment and training to promote independence in ADL's, mobility, safety and/or upper extremity function for ADL's. Plan of Care: ADL Retraining, Functional Mobility, UE Funct Exercise/Act Treatment Duration: December 01, 2021 Frequency: 3 times per week (3-5 times per week) Rehab Potential: Fair Time/GCodes Start Time: 08:50 Stop Time: 09:15 Total Time Billed (hr/min): 25 Billed Treatment Time 1 visit-ADL 2 (25 min) CHANG VERDUZCO November 23, 2021 09:20
[2021-11-23] MEDS: ASPIRIN E.C. 81 MG (ECOTRIN) TAB PO SCH (10:09)
[2021-11-23] MEDS: CLOPIDOGREL 75 MG (PLAVIX) TABLET PO SCH (10:09)
[2021-11-23] MEDS: DULoxetine 30 MG (CYMBALTA) CAP PO SCH ×2 (10:09→19:25)
[2021-11-23] MEDS: busPIRone 15 MG (BUSPAR) TABLET PO SCH ×3 (10:09→19:25)
[2021-11-23] MEDS: QUEtiapine 25 MG (SEROquel) TAB IMMEDIATE RELEASE PO SCH ×2 (10:09→19:25)
[2021-11-23] MEDS: hydrOXYzine (VISTARIL/ATARAX) 25 MG capsule/tablet PO PRN (10:19)
--- NOTE | 2021-11-23 11:25 | Speech Therapy Daily Note ---
Speech Daily Progress Note Subjective Date Seen by Provider: November 23, 2021 Time Seen by Provider: 10:33 The patient was seated upright in her recliner, awake and alert upon entrance to her room by the clinician. The patient greeted the clinician appropriately and was agreeable to participation in the cognitive linguistic treatment session. As the clinician visits with the patient regarding her cognition, the patient grows increasingly anxious. The clinician suspects the patient may be aware of her current cognitive deficits and may be self-limiting in the clinician's ability to complete the evaluation. Objective The SLUMS was completed on this date with maximum verbal cueing and encouragement. The patient displayed a SLUMS result of +14/30 correlating to a score of "dementia." The patient was not oriented to the year, was able to recall two of five single words following a five minute delay, displayed an error with subtraction, was unable to complete generative naming tasks due to increased anxiety, was unable to repeat three or four digits in reverse, and was able to recall two of four details following a paragraph read aloud. The patient does appear anxious throughout the questions presented, with the patient stating, "forget it, I can't do that" to end the session. Assessment Assessment Current Status: Fair Progress Treatment Plan Continue Plan of Care Speech Short Term Goals Short Term Goals Short Term Goals 1. The patient will complete the cognitive linguistic screening with mild clinician verbal prompting. Time Frame-STG: Two Days. Speech Assisted Goals Scrap Materials Buyer Goals 1. The patient will demonstrate increased cognitive linguistic skills for safe discharge to the least restrictive environment. Time Frame: One Week. Speech-Plan Treatment Plan Speech Therapy Treatment Plan: Continue Plan of Care Frequency: 2 times per week Estimated Hrs Per Day: .25 hour per day Rehab Potential: Fair Pt/Family Agrees to Plan: Yes Safety Risks/Education Teaching Recipient: Patient Teaching Methods: Discussion Response to Teaching: Reinforcement Needed Education Topics Provided: Results of SLUMS Time Speech Therapy Time In: 10:33 Speech Therapy Time Out: 10:43 Total Billed Time: 10 Billed Treatment Time Rani DUTCHARCHANA CARPENTERANN ST November 23, 2021 11:25
--- NOTE | 2021-11-23 11:47 | Physical Therapy Daily Note ---
PT Daily Note-Current Subjective Patient states she is very anxious. Reluctantly agrees to PT. Mental Status Patient Orientation: Confused Transfers SCALE: Activities may be completed with or without assistive devices. 1-Cvkhnuqdhs-jrvdlgs completes the activity by him/herself with no assistance from a helper. 5-Set-up or Clean-up Assistance-helper sets up or cleans up; patient completes activity. [place] assists only prior to or following the activity. 4-Supervision or Touching Assistance-helper provides verbal cues and/or dani sherlyn/steadying and/or contact guard assistance as patient completes activity. Assistance may be provided throughout the activity or intermittently. 3-Partial/Moderate Assistance-helper does LESS THAN HALF the effort. [place] lifts, holds or supports trunk or limbs, but provides less than half the effort. 2-Substantial/Maximal Assistance-helper does MORE THAN HALF the effort. [place] lifts or holds trunk or limbs and provides more than half the effort. 4-Zuayypzed-tfmovp does ALL the effort. Patient does none of the effort to complete the activity. Or, the assistance of 2 or more helpers is required for the patient to complete the activity. If activity was not attempted, code reason: 7-Patient Refused. 9-Not Applicable-not attempted and the patient did not perform the activity before the current illness, exacerbation or injury. 10-Not Attempted due to Environmental Limitations-(lack of equipment, weather restraints, etc.). 88-Not Attempted due to Medical Conditions or Safety Concerns. Sit to Stand (QC): 3 Chair/Iom-sj-Fnvzx Xfer(QC): 3 Toilet Transfer (QC): 3 patient is impulsive and unsafe with transfers due to decreased safety awareness. Weight Bearing Full Weight Bearing Full Weight Bearing Gait Training Distance: 250' Walk 10 feet (QC): 4 Walk 50 ft with 2 Turns(QC): 4 Walk 150 ft (QC): 4 Gait Assistive Device: FWW CGA for safety Assessment Patient incontinent BM requiring assist to cleanse and change performed by PCT. Patient up in recliner with chair alarm activated and tray in situ. PT Snf Goals Space Control Agent Goals PT Space Control Agent Goals Time Frame: November 27, 2021 Roll Left & Right (QC): 6 Sit to Lying (QC): 6 Lying-Sitting on Side/Bed(QC): 6 Sit to Stand (QC): 6 Chair/Ugf-wh-Gqgct Xfer(QC): 6 Walk 10 feet (QC): 6 Walk 50ft with 2 Turns (QC): 6 PT Plan Treatment/Plan Treatment Plan: Continue Plan of Care Treatment Plan: Education, Functional Activity Kat[place], Functional Strength, Group Therapy, Gait, Safety, Therapeutic Exercise, Transfers Treatment Duration: November 27, 2021 Frequency: 6 times per week Estimated Hrs Per Day: .25 hour per day Patient and/or Family Agrees t: Yes Time/GCodes Time In: 1055 Time Out: 1109 Total Billed Treatment Time: 14 Total Billed Treatment 1 visit FA 14 min POOJA GARCIA PT November 23, 2021 11:47
[2021-11-23 12:00] VITALS: BP 115/69
--- NOTE | 2021-11-23 12:30 | Progress Note - Hospitalist ---
Subjective HPI/CC On Admission Date Seen by Provider: November 23, 2021 Time Seen by Provider: 12:28 Patient is 76-year-old female who presented to the emergency department due to altered mental status. She is unable to tell me why she is here. She states that she has back pain since March. Upon review of records it seems that this is a much shorter history and roughly just 1 month ago. She was referred to logging specialist by her PCP but at that time had not made an appointment and she is unsure if she is ever seen the back doctor. Review of ER note states that she was brought in for altered mental status and confusion with possible hallucinations. When I informed her of this she smiled and said "oh yeah that is my ." He was found to have an acute kidney injury and is admitted for further management. Subjective/Events-last exam Pt reports doing well. Still ok with plan for DC to [facility]. No family at bedside. RN and SW reports some confusion though. Pt would not allow SW to do care assessment. Focused Exam Lactate Level 11/20/21 12:57: Lactic Acid Level 4.10*H 11/20/21 15:10: Lactic Acid Level 1.28 Objective Exam Vital Signs Vital Signs Date Time Temp Pulse Resp B/P (MAP) Pulse Ox O2 Delivery O2 Flow Rate FiO2 11/23/21 09:00 Room Air 11/23/21 08:00 37.0 92 17 129/83 (98) 99 Capillary Refill : General Appearance: No Apparent Distress, Chronically ill Respiratory: Lungs Clear, No Respiratory Distress Cardiovascular: Regular Rate, Rhythm Neurologic/Psychiatric: Alert, Oriented x3 (to major details (name, location)) Results/Procedures Lab Laboratory Tests 11/23/21 08:24 Patient resulted labs reviewed. Assessment/Plan Assessment and Plan Assess & Plan/Chief Complaint Acute kidney injury- resolved Lactic acidosis Dehydration Weakness ?post COVID syndrome Weight loss DC IVF as creatinine 1.17 PT/OT Camp Guard saw patient and recommended ensure clear as she cannot tolerate dairy- doing well with these multimedia services manager for likely placement- selected [facility] CAD s/p CABG HLD HTN Continue home meds as able Hold antihypertensives as BP well controlled Depression She appears to fill seroquel, duloxetine, remeron, ativan, and buspar attempted to call her PCP to clarify but no answer DVT ppx: Lovenox LISSA,KEVIN M MD November 23, 2021 12:30
[2021-11-23] MEDS: ENOXAPARIN INJECTION 30 MG/0.3 ML SYR SC SCH (13:46)
[2021-11-23 16:00] VITALS: BP 149/67
[2021-11-23] MEDS ORDERED: hydrOXYzine (VISTARIL/ATARAX) 25 MG capsule/tablet PO PRN (16:00)
[2021-11-23] MEDS: PANTOPRAZOLE 20 MG TABLET (PROTONIX) PO SCH (19:25)
[2021-11-23] MEDS: MELATONIN 3 MG TABLET PO PRN (22:07)
[2021-11-23 23:40] VITALS: BP 114/59
[2021-11-24] MEDS: LEVOTHYROXINE 88 MCG (LEVOTHORID) TAB PO SCH (05:34)
[2021-11-24 07:57] VITALS: BP 130/70
[2021-11-24] MEDS: ASPIRIN E.C. 81 MG (ECOTRIN) TAB PO SCH (08:02)
[2021-11-24] MEDS: busPIRone 15 MG (BUSPAR) TABLET PO SCH (08:02)
[2021-11-24] MEDS: DULoxetine 30 MG (CYMBALTA) CAP PO SCH (08:02)
[2021-11-24] MEDS: QUEtiapine 25 MG (SEROquel) TAB IMMEDIATE RELEASE PO SCH (08:02)
[2021-11-24] MEDS: CLOPIDOGREL 75 MG (PLAVIX) TABLET PO SCH (08:02)
--- NOTE | 2021-11-24 09:16 | Discharge Inst-Skilled Nursing ---
Discharge Inst-Skilled NF Chief Complaint Patient is 76-year-old female who presented to the emergency department due to altered mental status. She is unable to tell me why she is here. She states that she has back pain since March. Upon review of records it seems that this is a much shorter history and roughly just 1 month ago. She was referred to resource recovery specialist by her PCP but at that time had not made an appointment and she is unsure if she is ever seen the back doctor. Review of ER note states that she was brought in for altered mental status and confusion with possible hallucinations. When I informed her of this she smiled and said "oh yeah that is my ." He was found to have an acute kidney i christiano and is admitted for further management. Consult/Follow Up/Orders Skilled NF Admit to: [facility] Certification (SNF) I certify that SNF services are required to be given on an inpatient basis because of the above named patient's need for half-way care on a continuing basis for the conditions(s) for which he/she was receiving inpatient hospital services prior to his/her transfer to the SNF. Nursing Home Facility Order: Nursing Services, Spiral [employer] Generator-Evaluate & Treat, Physical Therapy-Evaluate & Treat Oxygen Delivery Method: Room Air Discharge Diet: No Restrictions Daily Activity as Tolerated: Yes Resuscitation Status: Do Not Resuscitate New & Resume Previous Orders Kevin Andrade November 24, 2021 09:15 KEVIN ANDRADE MD November 24, 2021 09:16
--- NOTE | 2021-11-24 09:28 | Discharge Summary ---
Diagnosis/Chief Complaint Date of Admission November 20, 2021 at 14:10 Date of Discharge Discharge Date: November 24, 2021 Admission Diagnosis Acute kidney injury Primary Care Paramjit Grove DO Discharge Summary Discharge Physical Exam Allergies: Coded Allergies: codeine (Verified Allergy, Unknown, 05/13/18) nausea/faints olanzapine (Verified Allergy, Unknown, 08/03/08) cefadroxil (Verified Adverse Reaction, Mild, MAKES HER DIZZY AND FAINTS, 05/15/18) faints Vitals & I&Os Vital Signs Date Time Temp Pulse Resp B/P (MAP) Pulse Ox O2 Delivery O2 Flow Rate FiO2 11/24/21 12:30 11/24/21 07:57 36.8 97 18 99 Room Air General Appearance: No Apparent Distress, Chronically ill Respiratory: Lungs Clear, No Respiratory Distress Cardiovascular: Regular Rate, Rhythm Neurologic/Psychiatric: Alert, Oriented x3 (to major details but forgetful) Hospital Course Patient was admitted to the hospital secondary to dehydration and acute kidney injury. She had COVID roughly 6 weeks ago and since that time has had poor appetite due to loss of taste. She has had home health working with her while home but continued to worsen and get more debilitated. She was admitted for IV fluids and physical therapy. She did well and creatinine returned to normal. She was seen by dietary due to weight loss and Ensure clears were started which she tolerated well. She was discharged to [facility] for skilled therapy. I called and updated her primary care doctor, Dr. Grove, of this hospitalization and discharge plan. Labs (last 24 hrs) Microbiology 11/20/21 Blood Culture - Preliminary, Resulted Gram Positive Andrzej 11/20/21 Urine Culture - Final, Complete Actinobaculum schaalii Patient resulted labs reviewed. Discussion & Recommendations Discharge Planning: >30 minutes discharge planning Discharge Home Medications: Active Scripts Active Reported Hydroxyzine Pamoate 50 Mg Capsule 50 Mg PO HS Potassium Chloride 10 Meq Capsule.er 10 Meq PO DAILY PRN Furosemide 40 Mg Tablet 40 Mg PO DAILY PRN Aspirin EC (Aspirin) 81 Mg Tablet.dr 81 Mg PO DAILY Vitamin B-12 (Cyanocobalamin (Vitamin B-12)) 1,000 Mcg Tablet 1,000 Mcg PO DAILY Vitamin D3 (Cholecalciferol (Vitamin D3)) 50 Mcg Tablet 50 Mcg PO DAILY Hydroxyzine Pamoate 50 Mg Capsule 50 Mg PO DAILY PRN Buspirone HCl 15 Mg Tablet 15 Mg PO TID Clopidogrel (Clopidogrel Bisulfate) 75 Mg Tablet 75 Mg PO DAILY Tramadol HCl 50 Mg Tablet 50 Mg PO Q6H PRN Synthroid (Levothyroxine Sodium) 88 Mcg Tablet 88 Mcg PO DAILY Quetiapine Fumarate 25 Mg Tablet 50 Mg PO BID TAKES 2 (25MG) TABS Duloxetine HCl 60 Mg Capsule.dr 60 Mg PO BID [place]-3 Acid Ethyl Esters 1 Gm Capsule 2 Gm PO BID TAKES 2 (1GM) CAPSULES Omeprazole 20 Mg Capsule.dr 20 Mg PO HS Atorvastatin Calcium 80 Mg Tablet 80 Mg PO HS Instructions to patient/family Please see electronic discharge instructions given to patient. KEVIN ALCARAZ MD November 24, 2021 09:28
--- NOTE | 2021-11-24 09:50 | Physical Therapy Daily Note ---
PT Daily Note-Current Subjective Patient agrees to PT. Spouse present Mental Status Patient Orientation: Confused Transfers SCALE: Activities may be completed with or without assistive devices. 7-Aewxfyywbg-ycweipi completes the activity by him/herself with no assistance from a helper. 5-Set-up or Clean-up Assistance-helper sets up or cleans up; patient completes activity. [place] assists only prior to or following the activity. 4-Supervision or Touching Assistance-helper provides verbal cues and/or touching/steadying and/or contact guard assistance as patient completes activity. Assistance may be provided throughout the activity or intermittently. 3-Partial/Moderate Assistance-helper does LESS THAN HALF the effort. [place] lifts, holds or supports trunk or limbs, but provides less than half the effort. 2-Substantial/Maximal Assistance-helper does MORE THAN HALF the effort. [place] lifts or holds trunk or limbs and provides more than half the effort. 8-Zotnhzqrs-medrsj does ALL the effort. Patient does none of the effort to complete the activity. Or, the assistance of 2 or more helpers is required for the patient to complete the activity. If activity was not attempted, code reason: 7-Patient Refused. 9-Not Applicable-not attempted and the patient did not perform the activity before the current illness, exacerbation or injury. 10-Not Attempted due to Environmental Limitations-(lack of equipment, weather restraints, etc.). 88-Not Attempted due to Medical Conditions or Safety Concerns. Sit to Stand (QC): 4 Weight Bearing Full Weight Bearing Full Weight Bearing Gait Training Distance: 250' Walk 10 feet (QC): 4 Walk 50 ft with 2 Turns(QC): 4 Walk 150 ft (QC): 4 Gait Assistive Device: FWW SBA to CGA for safety Assessment Patient incontinent BM requiring assist to cleanse and change. Patient up in recliner with family present and chair alarm activated. Per report, patient will dismiss to [place] on this date. PT Core Maker Goals Core Maker Goals PT Core Maker Goals Time Frame: November 27, 2021 Roll Left & Right (QC): 6 Sit to Lying (QC): 6 Lying-Sitting on Side/Bed(QC): 6 Sit to Stand (QC): 6 Chair/Ocl-ya-Qhqxi Xfer(QC): 6 Walk 10 feet (QC): 6 Walk 50ft with 2 Turns (QC): 6 PT Plan Treatment/Plan Treatment Plan: Discontinue PT Treatment Plan: Education, Functional Activity [place], Functional Strength, Group Therapy, Gait, Safety, Therapeutic Exercise, Transfers Treatment Duration: November 27, 2021 Frequency: 6 times per week Estimated Hrs Per Day: .25 hour per day Patient and/or Family Agrees t: Yes Time/GCodes Time In: 852 Time Out: 902 Total Billed Treatment Time: 10 Total Billed Treatment 1 visit FA 10 min POOJA GARCIA PT November 24, 2021 09:50
--- NOTE | 2021-11-24 10:17 | Occ Therapy Progress Note ---
Therapy Progress Note Pt up in recliner, declined OT tx at this time. Pt indicates she is cold, tired and her back is aching. OT provided education on purpose and benefit of OT, but she continued to decline. Pt reports she is transferring to [place] later today. OT will attempt tx again at next available time if pt is still admitted. 1, refusal 1002 ASTRID GUTIÉRREZ OT November 24, 2021 10:17
[2021-11-24] MEDS ORDERED: ENOXAPARIN 40 MG/0.4 ML (LOVENOX) SYR SC SCH (13:00)
== END 2021-11-24 12:32 | DRG 683 ==
LOC: EDUNIT# 12:04 → ER 12:08 → 4TH 14:10
PROVIDERS: ADMIT Family Medicine; ATTEND Family Medicine
DX: N17.9 Acute kidney failure, unspecified (principal); E87.2 Acidosis; I13.0 Hypertensive heart and chronic kidney disease with heart failure and stage 1 through stage 4 chronic kidney disease, or unspecified chronic kidney disease; E86.0 Dehydration; R63.4 Abnormal weight loss; I25.10 Atherosclerotic heart disease of native coronary artery without angina pectoris; Z95.1 Presence of aortocoronary bypass graft; E78.5 Hyperlipidemia, unspecified; F32.A Depression, unspecified; R53.1 Weakness; I50.9 Heart failure, unspecified; F03.90 Unspecified dementia, unspecified severity, without behavioral disturbance, psychotic disturbance, mood disturbance, and anxiety; Z86.16 Personal history of COVID-19; Z79.82 Long term (current) use of aspirin; Z79.899 Other long term (current) drug therapy; M19.90 Unspecified osteoarthritis, unspecified site; M79.7 Fibromyalgia; E03.9 Hypothyroidism, unspecified; F41.9 Anxiety disorder, unspecified; N18.9 Chronic kidney disease, unspecified; E87.6 Hypokalemia; R41.0 Disorientation, unspecified; K57.90 Diverticulosis of intestine, part unspecified, without perforation or abscess without bleeding; Z20.822 Contact with and (suspected) exposure to COVID-19; Z68.21 Body mass index [BMI] 21.0-21.9, adult
CPT/HCPCS: 36415; 70450; 71045; 73080; 73502; 80048; 80053; 81000; 83605; 83735; 83880; 84443; 84484; 85025; 85027; 85610; 85730; 87040; 87077; 87088; 87636; 93005